=== PATIENT | female | born 1940 | race African-American/Black ===

== ENCOUNTER 2019-05-30 08:09 | Outpatient (CLI) | payer MEDICARE, OTHER, SELFPAY ==
[2019-05-30 08:42] LABS: Creatinine Urine 64.7 mg/dL; Hemoglobin A1C 6.5 % (<5.7)
[2019-05-30 08:48] LABS: Albumin Level 4.2 g/dL (3.5-5.1); Blood Urea Nitrogen 40 mg/dL (7-17); Calcium 9.9 mg/dL (8.4-10.2); Carbon Dioxide 29 mmol/L (22-30); Chloride 104 mmol/L (98-107); Estimated Glomerular Filt Rate 35; Glucose 186 mg/dL (65-105); Phosphorus 3.8 mg/dL (2.5-4.5); Potassium 4.1 mmol/L (3.4-5.0); Sodium 138 mmol/L (137-145)
[2019-05-30 09:02] LABS: Total Protein Urine Random 436 mg/dL
[2019-05-30 09:47] LABS: Vitamin D 25 Hydroxy 19.3 ng/mL
== END 2019-05-30 08:10 | disposition home or self-care (01) ==
PROVIDERS: PCP Internal Medicine; Visit Provider Internal Medicine Nephrology
DX: I12.9 Hypertensive chronic kidney disease with stage 1 through stage 4 chronic kidney disease, or unspecified chronic kidney disease (principal); N18.4 Chronic kidney disease, stage 4 (severe); E11.29 Type 2 diabetes mellitus with other diabetic kidney complication; R80.8 Other proteinuria
CPT/HCPCS: 36415; 80069; 82306; 82570; 83036; 84156

== ENCOUNTER 2019-07-05 03:10 | Observation (INO) | payer MEDICARE, OTHER, SELFPAY ==
[2019-07-05] VITALS (24 sets, daily range): BP systolic 149–256; BP diastolic 56–134; PULSE 61–89; RESP 10–21; TEMP 36.3–36.9; O2SAT 95–100; BMI 33.7
--- NOTE | 2019-07-05 | ECHO_ITS ---
Patient Info Name: Lilian Mandel Age: 79 years : 1940 Gender: Female Ht: 66 in Wt: 208 lbs BSA: 2.13 m2 HR: 75 bpm BP: 120 / 83 mmHg Technical Quality: Good Exam Date: 07/05/2019 10:12 AM Exam Location: [facility] Pulmonary Patient Status: Outpatient Admit Date: 07/05/2019 Staff Ordering Physician: Gulshan Hernandez MD Law Firm Consultant: Milvia Sharp RDCS Attending Provider: Rhiannon Valenzuela DO Referring Physician: David PARIKH; Exam Type: CA echo doppler color flow Study Info Indications - cva Complete two-dimensional, color flow and Doppler transthoracic echocardiogram is performed. Summary 1. Left ventricular chamber size and systolic function are normal with no regional wall motion abnormalities with an estimated ejection fraction of >70%. Moderate LVH and grade 1 diastolic dysfunction are present. 2. There is trace mitral and tricuspid valve regurgitation. 3. No pulmonary hypertension, estimated pulmonary arterial systolic pressure is 28 mmHg. 4. Normal sinus rhythm. Left Ventricle Left ventricular chamber dimension is normal. Left ventricular systolic function is normal, estimated at >70%. There is moderately increased left ventricular wall thickness. Left ventricular septal wall motion is normal. The left ventricular diastolic function is grade I diastolic dysfunction. Left ventricular chamber size and systolic function are normal with no regional wall motion abnormalities with an estimated ejection fraction of >70%. Moderate LVH and grade 1 diastolic dysfunction are present. Right Ventricle Right ventricular chamber dimension is normal. Right ventricular systolic function is normal. Left Atria Left atrial chamber dimension is normal. Right Atria Right atrial chamber dimension is normal. Aortic Valve The aortic valve is trileaflet. There is no aortic valve sclerosis. There is no aortic valve stenosis. There is no aortic valve regurgitation. Pulmonic Valve The pulmonic valve is normal. There is no pulmonic valve stenosis. There is no pulmonic regurgitation. Mitral Valve The mitral valve has thickened leaflets. There is no mitral valve stenosis. There is trace mitral and tricuspid valve regurgitation. Tricuspid Valve The tricuspid valve leaflets are normal. There is no significant tricuspid valve stenosis. There is trace tricuspid valve regurgitation. No pulmonary hypertension, estimated pulmonary arterial systolic pressure is 28 mmHg. Pericardium/Pleural The pericardium appears normal. There is no pericardial effusion. Inferior Vena Cava Normal inferior vena cava with >50% collapse upon inspiration consistent with Empty right atrial pressure, 10 mmHg. Aorta The aortic root size at the sinus of Valsalva is normal. The prox ascending aorta size is normal. Left Ventricular Outflow Tract Name Value Normal LVOT 2D LVOT Diameter 2.0 cm LVOT Doppler LVOT Peak Gradient 5 mmHg LVOT Mean Gradient 3 mmHg LVOT VTI 23 cm LVOT VTI/AV VTI Ratio
--- NOTE | ~2019-07-05 | CT_ITS ---
EXAMINATION: CT brain wo con INDICATION: Headache COMPARISON: None TECHNIQUE: Standard unenhanced head CT. The dose-length product (DLP) was 605.33 mGy-cm. The mA was a djusted according to patient size. Iterative reconstruction technique was employed. FINDINGS: There is no acute intraparenchymal hemorrhage. No evidence of mass lesion. No evidence of a cute infarction. There is mild periventricular and subcortical hypodensity probably related to small vessel ischemic disease. There is mild prominence of the sulci and ventricles related to cerebral atr ophy. Intracranial calcified cerebral atherosclerosis is noted. There are no extra-axial collections. There is no mass effect or midline shift. The orbits and soft tissues are unremarkable. The visuali zed sinuses and mastoid air cells are well aerated. IMPRESSION: 1. No acute intracranial abnormality. 2. Age related findings. Reviewed, dictated and finalized at location A.
[2019-07-05 03:19] LABS: Glucose Point of Care 61 (65-105)
--- NOTE | 2019-07-05 03:19 | ECG_ITS ---
Measurements Intervals [place] Rate: 70 P: 56 [place]: 156 QRS: -31 QRSD: 106 T: 127 QT: 418 QTc: 453 Interpretive Statements SINUS RHYTHM LEFT AXIS DEVIATION LEFT VENTRICULAR HYPERTROPHY AND ST-T CHANGE BORDERLINE ST-T WAVE ABNORMALITY- ANTEROLAT/LAT LEADS BASELINE ARTIFACT- I, II, AVR BORDERLINE ECG Electronically Signed On 07-05-2019 7:18:46 CDT by Ashutosh Jones D.O.
--- NOTE | 2019-07-05 03:23 | ED.GENADULT ---
HPI - General Adult General Chief complaint: Weakness Stated complaint: weakness Time Seen by Provider: 07/05/19 03:20 History of Present Illness HPI narrative: 79 yo female w/ h/o CVA, HTN, DM, hypothyroidism BIBEMS for multiple complaints. She says that she just hasn't been feeling well for the past 3 days. She reports that she has been weak and and had a CAROLINA for the past three days. She also reports occasional dizziness. Tonight her son noted garbled speech around 0230. She has never had this before. Blood sugar per EMS was in the 50s. Related Data Home Medications Medication Instructions Recorded Confirmed aspirin 325 mg tablet 325 mg PO DAILY 01/30/19 07/05/19 bimatoprost 0.01 % eye drops 1 drop EACH EYE QPM 01/30/19 07/05/19 carvedilol 25 mg tablet 25 mg PO Q12H 01/30/19 07/05/19 metformin 1,000 mg tablet 1,000 mg PO BID 01/30/19 07/05/19 omeprazole 40 mg capsule,delayed 40 mg PO DAILY 01/30/19 07/05/19 release cholecalciferol (vitamin D3) 50 mcg PO DAILY 07/05/19 07/05/19 [Vitamin D3] glipizide 10 mg PO BIDAC 07/05/19 07/05/19 Allergies Allergy/AdvReac Type Severity Reaction Status Date / Time benazepril Allergy Unknown Unknown Verified 07/05/19 03:30 lisinopril Allergy Unknown Unknown Verified 07/05/19 03:30 Review of Systems Review of Systems: All systems reviewed & are unremarkable except as noted in HPI and below Constitutional: Constitutional: Denies fever(s) Eyes: Eyes: Denies change in vision ENT: Reports dizziness Cardiovascular: Cardiovascular: Denies chest pain Respiratory: Respiratory: Denies cough and Denies dyspnea Gastrointestinal: Gastrointestinal: Denies abdominal pain and Reports nausea Genitourinary: Genitourinary: Denies hematuria and Denies dysuria Integumentary/Breasts: Skin/Breast: Denies rash Neurologic: Reports dizziness, Reports headache(s), Denies focal weakness and Reports weakness Endocrine: Endocrine: Denies polydipsia and Denies polyuria PENDING SALE TO [facility] Past Medical History Medical History (Updated 07/05/19 @ 21:23 by Luan Go MD) Anemia Essential (primary) hypertension 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 Hypothyroidism, unspecified Type II diabetes mellitus with renal manifestations Surgical History Surgical History (Updated 07/05/19 @ 16:13 by Gulshan Hernandez MD) History of bunionectomy of left great toe Presence of left artificial knee joint Presence of right artificial hip joint Presence of right artificial knee joint Family History Family History (Updated 07/05/19 @ 16:14 by Gulshan Hernandez MD) Mother Family history of diabetes mellitus in first degree relative Patient's mother is Acute myocardial infarction Diabetes mellitus Sibling Family history of sarcoidosis Family history of lupus erythematosus Father , age 49 [place] Acute myocardial infarction Other Cerebrovascular accident Family history of arthritis Hypertension Social History Social History (Updated 07/05/19 @ 16:17 by Gulshan Hernandez MD) Smoking packs per day: 2 Smoking cigarettes per day: 40.0 Years smoked: 20.0 Smoking pack-years: 40.00 Smoking status: Former smoker Second hand tobacco smoke exposure: No Smoking end date: 06/13/79 Alcohol intake: never Substance use: never Gender identity (if verbalized by the patient): Male Spiritual care concerns: No Agree to blood products: Yes Exam Const: General: no acute distress, alert and ill appearing chronically Orientation/consciousness: patient oriented x3 HENMT: Head: normal to inspection Eyes: Other: periorbital edema and tearing Resp: Effort & Inspection: normal respiratory effort Auscultation: clear to auscultation bilaterally Cardio: Rate: regular rate Rhythm: regular rhythm GI: GI Palp: Yes Soft to palpation and No Tenderness to palpation present (GI) Skin: General sk
[2019-07-05] MEDS: hydrALAZINE HCL 20 MG/ML VIAL IV PUSH (03:45)
[2019-07-05 04:03] LABS: Basophils Percent Auto 0.6 % (0.2-1.2); Eosinophils Absolute Auto 0.5 K/mm3 (0-0.3); Eosinophils Percent Auto 6.7 % (0-4.4); Hematocrit 32.6 % (37.0-47.0); Hemoglobin 10.2 g/dL (12.0-15.0); Immature Granulocyte Absolute 0.02 K/mm3 (0.00-0.031); Immature Granulocyte Percent A 0.3 % (0-0.5); Lymphocytes Absolute Auto 1.96 K/mm3 (0.9-3.2); Mean Corpuscular HGB Conc 31.3 g/dl (32-36); Mean Corpuscular Hemoglobin 29.4 pg (26-34); Mean Corpuscular Volume 93.9 fl (80-100); Mean Platelet Volume 9.5 fl (7.4-10.4); Monocytes Absolute Auto 0.5 K/mm3 (0.1-0.6); Neutrophils Percent Auto 57.4 % (45.5-73.1); Platelet Count Result 353 k/mm3 (150-375); Red Blood Count 3.47 M/mm3 (4.2-5.4); Red Cell Distribution Width 12.9 % (11.5-14.5)
[2019-07-05 04:12] LABS: INR 0.8; Prothrombin Time 10.7 Seconds (11.1-14.7)
[2019-07-05 04:13] LABS: Partial Thromboplastin Time 25.3 SECONDS (22.3-36.8)
[2019-07-05 04:37] LABS: Add Urine Microscopic? YES; Appearance Urine Clear (Clear); Bilirubin Urine Negative (Negative); Blood Urine Negative (Negative); Color Urine Colorless (Yellow); Glucose Urine UA Negative (Negative); Ketones Urine Negative (Negative); Leukocyte Esterase Ur Negative LEU/UL (Negative); Mucus Urine Rare /lpf; Nitrate Urine Negative (Negative); Protein Urine 2+ mg/dL (Negative); RBC Urine 0-2 /hpf (0-2); Specific Grav Ur 1.006 (1.001-1.035); Squamous Epithelial Cell Urine Rare /hpf (Few); Urobilinogen Urine Negative mg/dL (<2.0); WBC Urine 0-3 /hpf
[2019-07-05] MEDS: LABETALOL HCL INJ 100 MG/20 ML VIAL 10 MG IV PUSH (04:50)
[2019-07-05 05:00] LABS: Alanine Aminotransferase 10 U/L (4-35); Albumin Level 4.3 g/dL (3.5-5.1); Alkaline Phosphatase 80 U/L (38-126); Aspartate Amino Transferase 22 U/L (14-36); Bilirubin,Total 0.3 mg/dL (0.2-1.3); Blood Urea Nitrogen 40 mg/dL (7-17); Calcium 10.3 mg/dL (8.4-10.2); Carbon Dioxide 28 mmol/L (22-30); Chloride 100 mmol/L (98-107); Estimated Glomerular Filt Rate 28; Glucose 76 mg/dL (65-105); Potassium 4.4 mmol/L (3.4-5.0); Sodium 137 mmol/L (137-145)
[2019-07-05 05:07] LABS: Glucose Point of Care 119 (65-105)
--- NOTE | 2019-07-05 05:14 | PC.NURSE ---
Scott Prescott called to [phone] youngest daughter called for update.
--- NOTE | 2019-07-05 07:29 | PC.NURSE ---
This patient, Lilian Mandel, was admitted to IMU Room 202-01 @[id number]. Patient/family oriented to hospital policies and general routines including ID bracelet, bed and alarms, visiting hours, pain management, procedures, bathroom and other care routines, personal items, smoking policy, room service/diet, and visiting hours. Valuables list has been completed. Patient encouraged to report perceived risks to care and to ask questions if they do not understand what they are told or what they should do.
[2019-07-05 08:12] LABS: Glucose Point of Care 76 (65-105)
[2019-07-05] MEDS: PANTOPRAZOLE 40 MG TABLET PO ×2 (09:37→21:45)
[2019-07-05] MEDS: FLUTICASONE PROPIONATE 0.05% NA SPR 16 GM BTL (*BKC) 2 SPRAY NASAL (09:37)
[2019-07-05] MEDS: AMLODIPINE BESYLATE 5 MG TABLET PO (09:37)
[2019-07-05] MEDS: LEVOTHYROXINE SODIUM 50 MCG TABLET PO (09:37)
[2019-07-05] MEDS: carvediloL 25 MG TABLET PO ×2 (09:37→21:44)
[2019-07-05] MEDS: ASPIRIN 325 MG TABLET PO (09:37)
[2019-07-05] MEDS: FUROSEMIDE 40 MG TABLET PO (09:37)
[2019-07-05] MEDS: CHOLECALCIFEROL 1,000 UNIT TABLET 2000 UNITS PO (09:37)
[2019-07-05] MEDS: LOSARTAN POTASSIUM 100 MG TABLET PO (09:37)
[2019-07-05 11:14] LABS: Glucose Point of Care 210 (65-105)
--- NOTE | 2019-07-05 15:58 | PM.IMHP ---
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 Her grandson was staying with her and he helped her to the bathroom and she stated that both legs were weak with no focal weakness. She had headache also and he helped her back to bed got her dressed and contacted 911 who brought her to the emergency room. In ER her systolic pressure was 240 and she is given IV hydralazine admitted for evaluation. She denied any chest pain shortness of breath or palpitations. She states she has been taking her medication faithfully. Noncontrast CT scan of the brain revealed no acute changes Review of Systems Review of Systems: Narrative: Constitutional appetite good weight steady no fever no chills Eye no double vision scotoma Mouth no pharyngitis laryngitis Pulmonary no shortness breath wheezing or cough CV is stated no palpitation or chest discomfort or pedal edema GI no melena or hematochezia. 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 Hypothyroidism, unspecified Type II diabetes mellitus with renal manifestations Surgical History Surgical History (Updated 07/05/19 @ 16:13 by Gulshan Hernandez MD) History of bunionectomy of left great toe Presence of left artificial knee joint Presence of right artificial hip joint Presence of right artificial knee joint Family History Family History (Updated 07/05/19 @ 16:14 by Gulshan Hernandez MD) Mother Family history of diabetes mellitus in first degree relative Patient's mother is Acute myocardial infarction Diabetes mellitus Sibling Family history of sarcoidosis Family history of lupus erythematosus Father , age 49 [place] Acute myocardial infarction Other Cerebrovascular accident Family history of arthritis Hypertension Social History Social History (Updated 07/05/19 @ 16:17 by Gulshan Hernandez MD) Smoking packs per day: 2 Smoking cigarettes per day: 40.0 Years smoked: 20.0 Smoking pack-years: 40.00 Smoking status: Former smoker Second hand tobacco smoke exposure: No Smoking end date: 06/13/79 Alcohol intake: never Substance use: never Gender identity (if verbalized by the patient): Male Spiritual care concerns: No Agree to blood products: Yes Meds Home Medications and Allergies Home Medications Medication Instructions Recorded Confirmed Type aspirin 325 mg tablet 325 mg PO DAILY 01/30/19 07/05/19 History bimatoprost 0.01 % eye drops 1 drop EACH EYE QPM 01/30/19 07/05/19 History carvedilol 25 mg tablet 25 mg PO Q12H 01/30/19 07/05/19 History metformin 1,000 mg tablet 1,000 mg PO BID 01/30/19 07/05/19 History omeprazole 40 mg capsule,delayed 40 mg PO DAILY 01/30/19 07/05/19 History release fluticasone propionate 50 2 spray NASAL DAILY #9.9 ml 02/02/19 07/05/19 Rx mcg/actuation nasal spray,suspension levothyroxine 50 mcg tablet 50 mcg PO DAILY #90 tablet 02/27/19 07/05/19 Rx furosemide 40 mg tablet 40 mg PO QAM #90 tablet 05/24/19 07/05/19 Rx losartan 100 mg tablet 100 mg PO DAILY #90 tablet 05/24/19
[2019-07-05 16:48] LABS: Glucose Point of Care 236 (65-105)
[2019-07-05] MEDS: LATANOPROST 0.005% OP SOLN 2.5 ML BTL 1 DROP EACH EYE (17:02)
[2019-07-05] MEDS: INSULIN ASPART (*BKC) 100 UNITS/ML SUB-Q (17:03)
[2019-07-05] MEDS: hydrALAZINE HCL 20 MG/ML VIAL 10 MG IV PUSH (17:03)
[2019-07-05] MEDS: ACETAMINOPHEN 325 MG TABLET 650 MG PO (20:03)
[2019-07-05 21:18] LABS: Glucose Point of Care 115 (65-105)
[2019-07-05] MEDS: ENOXAPARIN 30 MG/0.3 ML SYRINGE SUB-Q (21:45)
[2019-07-06] VITALS (9 sets, daily range): BP systolic 137–177; BP diastolic 53–63; PULSE 52–99; RESP 16–18; TEMP 36.3–36.6; O2SAT 97–99
[2019-07-06 04:42] LABS: Hemoglobin A1C 5.9 % (<5.7)
[2019-07-06 04:45] LABS: Blood Urea Nitrogen 44 mg/dL (7-17); Calcium 9.3 mg/dL (8.4-10.2); Carbon Dioxide 29 mmol/L (22-30); Chloride 103 mmol/L (98-107); Estimated CRCL calculation 20 ml/min; Estimated Glomerular Filt Rate 23; Glucose 112 mg/dL (65-105); Potassium 4.1 mmol/L (3.4-5.0); Sodium 137 mmol/L (137-145)
[2019-07-06] MEDS: LEVOTHYROXINE SODIUM 50 MCG TABLET PO (06:27)
[2019-07-06 07:53] LABS: Glucose Point of Care 102 (65-105)
[2019-07-06] MEDS: PANTOPRAZOLE 40 MG TABLET PO (09:26)
[2019-07-06] MEDS: carvediloL 25 MG TABLET PO (09:26)
[2019-07-06] MEDS: ASPIRIN 325 MG TABLET PO (09:26)
[2019-07-06] MEDS: AMLODIPINE BESYLATE 5 MG TABLET PO (09:26)
[2019-07-06] MEDS: FUROSEMIDE 40 MG TABLET PO (09:26)
[2019-07-06] MEDS: LOSARTAN POTASSIUM 100 MG TABLET PO (09:26)
[2019-07-06] MEDS: CHOLECALCIFEROL 1,000 UNIT TABLET 2000 UNITS PO (09:26)
[2019-07-06] MEDS: FLUTICASONE PROPIONATE 0.05% NA SPR 16 GM BTL (*BKC) 2 SPRAY NASAL (09:27)
[2019-07-06] MEDS: ACETAMINOPHEN 325 MG TABLET 650 MG PO (09:32)
[2019-07-06 12:52] LABS: Glucose Point of Care 171 (65-105)
--- NOTE | 2019-07-06 18:34 | PM.DS ---
DS: Diagnosis Admitting Diagnosis Admitting Diagnosis: Essential (primary) hypertension Discharge Diagnosis (1) Essential (primary) hypertension: Code(s): I10 - Essential (primary) hypertension Status: Acute Assessment and Plan: Accelerated essential hypertension. resumed her beta-иван and ARB with diuretic. Added amlodipine calcium channel иван to her regime. Looking back on records in 2014 she had been on amlodipine and past with no apparent adverse effects echocardiogram normal EF 60-65% with LVH. Her blood pressure came down remained relatively steady with resume the for blood pressure medicines and addition of the amlodipine. She seem reliable and stated she been taking her medicine faithfully. She will follow-up with primary and Dr. 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 And day of discharge with at 2.5. Did not want to lower her pressure too much with her renal failure. (3) Type II diabetes mellitus with renal manifestations: Code(s): E11.29 - Type 2 diabetes mellitus with other diabetic kidney complication Status: Acute Assessment and Plan: Blood sugar was slightly low on admission and she states that she was a little diaphoretic. A1c was only 5.9 so we held her metformin with the renal status and decrease her glipizide to 1 daily. She will follow-up with her primary care (4) Anemia: Code(s): D64.9 - Anemia, unspecified Status: Acute Assessment and Plan: Hemoglobin is the same as it has been over over a year thought secondary to anemia chronic disease with renal failure (5) Hypothyroidism, unspecified: Code(s): E03.9 - Hypothyroidism, unspecified Status: Acute Assessment and Plan: TSH normal continue thyroid replacement DS: Summary Hospital Course Hospital Course: 79-year-old black female admitted with accelerated hypertension, headache, weakness in both legs. Her pressure was elevated she is found to be hypoglycemic also. Oral hypoglycemics were decreased and amlodipine 5 was added to her blood pressure regime. Echocardiogram was normal EF with left ventricular hypertrophy. She will have a BMP drawn within the next 2 weeks and follow-up with primary and Dr. Fulton in the next 2 weeks as previously scheduled Time Spent with Patient Time attestation: Total time spent providing and/or coordinating discharge services: 35 minutes Exam Narrative: Exam Narrative: Condition on discharge Blood pressure 150/54 pulse is 56 saturating 98% on room air afebrile Lungs clear CV regular rate rhythm Abdomen is soft nontender Extremities without edema distal pulses are 2+ Neuro alert pleasant cooperative ambulating well with physical therapy and no focal deficits DS: Data Data Completed and Pending Labs on day of discharge: Labs from last 24 hours 07/06/19 07/06/19 07/06/19 11:53 07:49 04:13 Sodium 137 Potassium 4.1 Chloride 103 Carbon Dioxide 29 BUN 44 H Creatinine 2.50 H Estim Creat Clear Calc 20 Estimated GFR 23 L Glucose 112 H POC Capillary Glucose 171 H 102 Hemoglobin A1c Calcium 9.3 07/06/19 07/05/19 04:13 21:14 Sodium Potassium Chloride Carbon Dioxide BUN Creatinine Estim Creat Clear Calc Estimated GFR Glucose POC Capillary Glucose 115 H Hemoglobin A1c 5.9 H Calcium Discharge Plan Discharge Attending physician on discharge: Gulshan Hernandez Discharging Clinician: Gulshan Hernandez Patient Disposition: Home,
== END 2019-07-06 14:14 | disposition home or self-care (01) ==
LOC: ANHED 04:03 → ANHIMU 07:41
PROVIDERS: Admitting Provider Internal Medicine; Emergency Provider Emergency Medicine; PCP Internal Medicine; Visit Provider Internal Medicine
DX: I13.0 Hypertensive heart and chronic kidney disease with heart failure and stage 1 through stage 4 chronic kidney disease, or unspecified chronic kidney disease (principal); N18.3 Chronic kidney disease, stage 3 (moderate); I50.812 Chronic right heart failure; E11.22 Type 2 diabetes mellitus with diabetic chronic kidney disease; D63.1 Anemia in chronic kidney disease; E11.649 Type 2 diabetes mellitus with hypoglycemia without coma; E03.9 Hypothyroidism, unspecified; R47.1 Dysarthria and anarthria; Z79.82 Long term (current) use of aspirin; Z79.84 Long term (current) use of oral hypoglycemic drugs; Z79.899 Other long term (current) drug therapy; Z86.73 Personal history of transient ischemic attack (TIA), and cerebral infarction without residual deficits; Z87.891 Personal history of nicotine dependence; Z96.641 Presence of right artificial hip joint; Z96.653 Presence of artificial knee joint, bilateral
CPT/HCPCS: 36415; 70450; 80048; 80053; 81001; 83036; 84443; 85025; 85610; 85730; 93005; 93306; 96365; 96372; 96375; 97161; 97165; 99285; A9270; G0378; J0131; J0360; J1650; J1815

== ENCOUNTER 2019-07-11 07:42 | Outpatient (CLI) | payer MEDICARE, OTHER, SELFPAY ==
[2019-07-11 08:11] LABS: Albumin Level 3.9 g/dL (3.5-5.1); Blood Urea Nitrogen 35 mg/dL (7-17); Carbon Dioxide 29 mmol/L (22-30); Chloride 107 mmol/L (98-107); Estimated Glomerular Filt Rate 29; Glucose 113 mg/dL (65-105); Phosphorus 3.9 mg/dL (2.5-4.5); Potassium 4.5 mmol/L (3.4-5.0); Sodium 141 mmol/L (137-145)
== END 2019-07-11 07:43 | disposition home or self-care (01) ==
PROVIDERS: PCP Internal Medicine; Visit Provider Internal Medicine
DX: E11.29 Type 2 diabetes mellitus with other diabetic kidney complication (principal)
CPT/HCPCS: 36415; 80069

== ENCOUNTER 2019-08-02 13:42 | Outpatient (CLI) | payer MEDICARE, OTHER, SELFPAY ==
[2019-08-02 15:08] LABS: Alanine Aminotransferase 10 U/L (4-35); Albumin Level 3.9 g/dL (3.5-5.1); Alkaline Phosphatase 82 U/L (38-126); Aspartate Amino Transferase 20 U/L (14-36); Bilirubin,Total 0.2 mg/dL (0.2-1.3); Blood Urea Nitrogen 35 mg/dL (7-17); Calcium 9.6 mg/dL (8.4-10.2); Carbon Dioxide 30 mmol/L (22-30); Chloride 103 mmol/L (98-107); Cholesterol 248 mg/dL (0-200); Estimated Glomerular Filt Rate 25; Glucose 143 mg/dL (65-105); HDL Direct 50 mg/dL; Potassium 3.9 mmol/L (3.4-5.0); Sodium 137 mmol/L (137-145); Triglycerides 127 mg/dL (<150)
[2019-08-02 15:19] LABS: LDL Cholesterol Direct 117 mg/dL
[2019-08-02 18:46] LABS: Hemoglobin A1C 5.9 % (<5.7)
== END 2019-08-02 13:43 | disposition home or self-care (01) ==
PROVIDERS: PCP Internal Medicine; Visit Provider Internal Medicine
DX: E11.29 Type 2 diabetes mellitus with other diabetic kidney complication (principal); I10 Essential (primary) hypertension; Z79.899 Other long term (current) drug therapy; E03.9 Hypothyroidism, unspecified; E78.5 Hyperlipidemia, unspecified
CPT/HCPCS: 36415; 80053; 80061; 83036; 84443

== ENCOUNTER 2019-08-08 08:33 | Outpatient (CLI) | payer MEDICARE, OTHER, SELFPAY ==
--- NOTE | ~2019-08-08 | MM_ITS ---
EXAMINATION: MM screening abigail BI w milka HISTORY: Screening mammogram TECHNIQUE: Craniocaudal and mediolateral oblique 3-D tomosynthesis images were obtained and synthetic 2-D images were generated. CAD analysis was submitted and interpreted. COMPARISON: Comparison to multiple prior studies sequentially, with oldest reviewed study dated 05/28. BREAST PARENCHYMAL COMPOSITION: There are scattered areas of fibroglandular density. FINDINGS: There is no evidence of suspicious mass, calcification, or architectural distortion to sugg est malignancy in either breast. There has been no suspicious interval change. IMPRESSION: 1. No mammographic evidence of malignancy. 2. Recommend routine screening mammography in one year. BI-RADS Category 1: Negative Reviewed, dictated and finalized at location A.
== END 2019-08-08 08:34 | disposition home or self-care (01) ==
LOC: ANHIMG 09:04
PROVIDERS: PCP Internal Medicine; Visit Provider Internal Medicine
DX: Z12.31 Encounter for screening mammogram for malignant neoplasm of breast (principal)
CPT/HCPCS: 77063; 77067

== ENCOUNTER 2019-10-31 10:52 | Emergency (ER) | payer MEDICARE, OTHER, SELFPAY ==
[2019-10-31 11:35] VITALS: BP 182/76; PULSE 81; RESP 20; TEMP 36.8; O2SAT 99
--- NOTE | 2019-10-31 12:14 | ED.GENADULT ---
HPI - General Adult General Chief complaint: Unspecified <CAMILLE Howard Last Filed: 10/31/19 12:39> Stated complaint: I HAVE PARASITES ALL OVER MY SKIN <CAMILLE Howard Last Filed: 10/31/19 12:39> Time Seen by Provider: 10/31/19 11:57 <CAMILLE Howard Last Filed: 10/31/19 12:39> Source: patient <CAMILLE Howard Last Filed: 10/31/19 12:39> Mode of arrival: ambulatory <CAMILLE Howard Last Filed: 10/31/19 12:39> Limitations: no limitations <CAMILLE Howard Last Filed: 10/31/19 12:39> History of Present Illness HPI narrative: This is a 79 year old female that presents to the ER for itchy rash on her body. Reports she thinks that she has parasites. She has seen her primary for this and has a referral to a microsoft dynamics developer. Denies fever, chest pain, abdominal pain, or dysuria. <CAMILLE Howard Last Filed: 10/31/19 12:39> Related Data Home medications: Home Medications Medication Instructions Recorded Confirmed aspirin 325 mg tablet 325 mg PO DAILY 01/30/19 10/08/19 bimatoprost 0.01 % eye drops 1 drop EACH EYE QPM 01/30/19 10/08/19 carvedilol 25 mg tablet 25 mg PO Q12H 01/30/19 10/08/19 cholecalciferol (vitamin D3) 50 mcg PO DAILY 07/05/19 10/08/19 [Vitamin D3] <CAMILLE Howard Last Filed: 10/31/19 12:39> Allergies/adverse reactions: Allergies Allergy/AdvReac Type Severity Reaction Status Date / Time benazepril Allergy Unknown Unknown Verified 10/08/19 09:20 lisinopril Allergy Unknown Unknown Verified 10/08/19 09:20 <CAMILLE Howard Last Filed: 10/31/19 12:39> Review of Systems Review of Systems: Narrative: CONSTITUTIONAL: Denies fever CARDIOVASCULAR: Denies chest pain GASTROINTESTINAL: Denies abdominal pain, vomiting GENITOURINARY: Denies dysuria SKIN: Reports rash and itching. <Brianda Mart PA-C - Last Filed: 10/31/19 12:39> All systems reviewed & are unremarkable except as noted in HPI and below <Brianda Mart PA-C - Last Filed: 10/31/19 12:39> PMFSH Social History Social History: Social History Smoking packs per day: 2 Smoking cigarettes per day: 40.0 Years smoked: 20.0 Smoking pack-years: 40.00 Smoking status: Former smoker Second hand tobacco smoke exposure: No Smoking end date: 06/13/79 Alcohol intake: never Substance use: never Gender identity (if verbalized by the patient): Male Spiritual care concerns: No Agree to blood products: Yes <Brianda Mart PA-C - Last Filed: 10/31/19 12:39> Exam Narrative: Exam Narrative: GENERAL: Well-appearing, well-nourished, and in no acute distress. HEAD: Normocephalic, atraumatic. EYES: PERRLA and EOMI. ENT: Nares clear, no rhinorrhea or epistaxis. Mucous membranes moist. Oropharynx without tonsillar hypertrophy exudate or other lesions. Bilateral TMs pearly abdul non-bulging NECK: Supple. No adenopathy or masses. CHEST: Clear to auscultation. No respiratory distress. No wheezes rales or rhonchi HEART: Regular rate and rhythm. No murmur heard. Normal peripheral pulses. ABDOMEN: Soft, nontender, nondistended, normal active bowel sounds. EXTREMITIES: Normal range of motion. No edema. SKIN: Warm, dry, no rash. NEURO: No focal deficits. Alert and oriented x3. PSYCH: Normal mood and affect <CAMILLE Howard Last Filed: 10/31/19 12:39> Course Vital Signs Vital signs: Vital Signs Temperature 98.2 F 10/31/19 11:35 Pulse Rate 81 10/31/19 11:35 Respiratory Rate 20 10/31/19 11:35 Blood Pressure 182/76 H 10/31/19 11:35 Pulse Oximetry 99 08/19/20 11:35 Temperature 98.2 F 10/31/19 11:35 Pulse Rate 80 10/31/19 12:40 Respiratory Rate 12 10/31/19 12:40 Blood Pressure 186/74 H 10/31/19 12:40 Pulse Oximetry 99 10/31/19 12:40 <Brianda Mart PA-C - Last Filed: 10/31/19 12:39> Vital Signs Te
[2019-10-31 12:40] VITALS: BP 186/74; PULSE 80; RESP 12; O2SAT 99
== END 2019-10-31 12:50 | disposition home or self-care (01) ==
PROVIDERS: Emergency Provider Emergency Medicine; PCP Internal Medicine
DX: R21 Rash and other nonspecific skin eruption (principal); Z87.891 Personal history of nicotine dependence
CPT/HCPCS: 99281; J7030

== ENCOUNTER 2019-11-08 13:53 | Outpatient (CLI) | payer MEDICARE, OTHER, SELFPAY ==
[2019-11-08 14:23] LABS: Cholesterol 181 mg/dL (0-200); HDL Direct 71 mg/dL; Triglycerides 96 mg/dL (<150)
[2019-11-08 14:33] LABS: LDL Cholesterol Direct 73 mg/dL
== END 2019-11-08 13:54 | disposition home or self-care (01) ==
LOC: ANHLAB 13:57
PROVIDERS: PCP Internal Medicine; Visit Provider Internal Medicine
DX: E78.2 Mixed hyperlipidemia (principal)
CPT/HCPCS: 36415; 80061

== ENCOUNTER 2019-11-28 09:07 | Outpatient (CLI) | payer MEDICARE, OTHER, SELFPAY ==
[2019-11-28 10:11] LABS: Creatinine Urine 83.5 mg/dL
[2019-11-28 10:15] LABS: Albumin Level 4.1 g/dL (3.5-5.1); Anion Gap 8 mmol/L (8-16); Blood Urea Nitrogen 44 mg/dL (7-17); Calcium 9.2 mg/dL (8.4-10.2); Carbon Dioxide 27 mmol/L (22-30); Chloride 102 mmol/L (98-107); Estimated Glomerular Filt Rate 18; Glucose 163 mg/dL (65-105); Phosphorus 4.4 mg/dL (2.5-4.5); Potassium 4.5 mmol/L (3.4-5.0); Sodium 137 mmol/L (137-145)
[2019-11-28 10:23] LABS: Total Protein Urine Random 349 mg/dL
[2019-11-28 10:26] LABS: Parathyroid Intact 437.4 pg/mL (7.5-53.5)
[2019-11-28 11:02] LABS: Vitamin D 25 Hydroxy 34.3 ng/mL
== END 2019-11-28 09:08 | disposition home or self-care (01) ==
LOC: ANHLAB 09:11
PROVIDERS: PCP Internal Medicine; Visit Provider Internal Medicine Nephrology
DX: R80.8 Other proteinuria (principal); I12.9 Hypertensive chronic kidney disease with stage 1 through stage 4 chronic kidney disease, or unspecified chronic kidney disease; N18.3 Chronic kidney disease, stage 3 (moderate); E11.29 Type 2 diabetes mellitus with other diabetic kidney complication
CPT/HCPCS: 36415; 80069; 82306; 82570; 83970; 84156

== ENCOUNTER 2020-01-04 09:49 | Outpatient (CLI) | payer MEDICARE, OTHER, SELFPAY ==
[2020-01-04 10:32] LABS: Albumin Level 4.2 g/dL (3.5-5.1); Anion Gap 9 mmol/L (8-16); Blood Urea Nitrogen 48 mg/dL (7-17); Calcium 9.9 mg/dL (8.4-10.2); Carbon Dioxide 28 mmol/L (22-30); Chloride 107 mmol/L (98-107); Estimated Glomerular Filt Rate 21; Glucose 121 mg/dL (65-105); Phosphorus 4.8 mg/dL (2.5-4.5); Potassium 4.3 mmol/L (3.4-5.0); Sodium 144 mmol/L (137-145)
== END 2020-01-04 09:50 | disposition home or self-care (01) ==
PROVIDERS: PCP Internal Medicine; Visit Provider Internal Medicine Nephrology
DX: I12.9 Hypertensive chronic kidney disease with stage 1 through stage 4 chronic kidney disease, or unspecified chronic kidney disease (principal); N18.4 Chronic kidney disease, stage 4 (severe); E11.29 Type 2 diabetes mellitus with other diabetic kidney complication
CPT/HCPCS: 36415; 80069

== ENCOUNTER 2020-03-21 08:37 | Outpatient (CLI) | payer MEDICARE, OTHER, SELFPAY ==
--- NOTE | ~2020-03-21 | DEXA_ITS ---
Bone Density Report Name: Lilian Mandel Age: 80 Sex: Female Ethnicity: Black Date of : 1940 Indication: postmenopausal; height loss; Referring Provider: Payal Ricardo Study: Bone densitometry was performed. Exam Date: March 21, 2020 Accession number: [id number] Bone Density: Region BMD T-score Z-score Classification AP Spine (L1, L2) 1.447 4.3 6.1 Normal Femoral Neck (Left) 0.785 -0.6 0.6 Normal Total Hip (Left) 1.036 0.8 1.5 Normal World Health Organization criteria for BMD impression classify patients as: Normal (T-score at or above -1.0), Osteopenia (T-score between -1.0 and -2.5), or Osteoporosis (T-score at or below -2.5). 10-year Fracture Risk: FRAX not reported because: All T-scores for Spine Total, Hip Total, Femoral Neck at or above -1.0 Previous Exams: Region Exam Age BMD T-score BMD Change BMD Change Date g/cm2 vs Baseline vs Previous AP Spine(L1, L2) 03/21/2020 80 1.447 4.3 0.176(13.8%)# 0.176(13.8%)# 01/06/2009 68 1.272 2.7 Total Hip(Left) 03/21/2020 80 1.036 0.8 -0.145(-12.3%) -0.145(-12.3%) 01/06/2009 68 1.181 2.0 *Denotes significance at 95% confidence level, LSC for AP Spine = 0.022 g/cm2, LSC for Total Hip = 0.027 g/cm2 Clinical Information Provided by Patient: Has used the following medications: Vitamin D Patient maximum height was 68 Menopause Age: 51 No regular weight bearing exercise Drinks caffeinated beverages Onset of menses at age 13 Number of children 9 Impression: The patient has normal bone mass. No significant bone loss was observed. Discussion: BONE DENSITY IS ABOVE THE MINIMUM DESIRABLE LEVEL AT ALL SKELETAL SITES TESTED. This patient?s bone mineral density is above the minimum desirable level (T-score -1.0 or better) at all sites measured. The patient should follow a healthful lifestyle (good nutrition with adequate calcium and vitamin D, and appropriate weight-bearing exercise). Follow-Up: Consider repeating this study in 5 years or sooner if there is some new clinical indication. Reported by: [facility] on 03/21/2020 9:01:00 AM. Reviewed, dictated and finalized at location Rajat SEPULVEDA
== END 2020-03-21 08:38 | disposition home or self-care (01) ==
PROVIDERS: PCP Internal Medicine; Visit Provider Nurse Practitioner
DX: Z13.820 Encounter for screening for osteoporosis (principal); Z78.0 Asymptomatic menopausal state
CPT/HCPCS: 77080

== ENCOUNTER 2020-03-22 10:02 | Outpatient (CLI) | payer MEDICARE, OTHER, SELFPAY ==
[2020-03-22 10:41] LABS: Creatinine Urine 116.3 mg/dL
[2020-03-22 10:44] LABS: Albumin Level 3.8 g/dL (3.5-5.1); Anion Gap 6 mmol/L (8-16); Blood Urea Nitrogen 57 mg/dL (7-17); Calcium 9.2 mg/dL (8.4-10.2); Carbon Dioxide 27 mmol/L (22-30); Chloride 108 mmol/L (98-107); Estimated Glomerular Filt Rate 13; Glucose 142 mg/dL (65-105); Phosphorus 4.9 mg/dL (2.5-4.5); Potassium 4.4 mmol/L (3.4-5.0); Sodium 141 mmol/L (137-145)
[2020-03-22 12:49] LABS: Total Protein Urine Random > 600 mg/dL
== END 2020-03-22 10:03 | disposition home or self-care (01) ==
PROVIDERS: PCP Internal Medicine; Visit Provider Internal Medicine Nephrology
DX: E11.29 Type 2 diabetes mellitus with other diabetic kidney complication (principal); R80.8 Other proteinuria; I12.9 Hypertensive chronic kidney disease with stage 1 through stage 4 chronic kidney disease, or unspecified chronic kidney disease; N18.4 Chronic kidney disease, stage 4 (severe)
CPT/HCPCS: 36415; 80069; 82570; 84156

== ENCOUNTER 2020-04-05 01:02 | Outpatient (CLI) | payer MEDICARE, OTHER, SELFPAY ==
[2020-04-06 17:16] LABS: SARS-CoV-2 RNA PCR Negative
== END 2020-04-05 01:03 | disposition home or self-care (01) ==
LOC: ANHCOVIDDT 01:03
PROVIDERS: Family Provider Internal Medicine; PCP Internal Medicine; Visit Provider Orthopaedic Surgery
DX: Z01.812 Encounter for preprocedural laboratory examination (principal); Z20.822 Contact with and (suspected) exposure to COVID-19
CPT/HCPCS: C9803; U0003; U0005

== ENCOUNTER 2020-04-08 08:28 | Outpatient (CLI) | payer MEDICARE, OTHER, SELFPAY ==
[2020-04-02 15:27] VITALS: BMI 36.4
[2020-04-08 08:49] LABS: Mean Platelet Volume 9.2 fl (7.4-10.4); Platelet Count Result 363 k/mm3 (150-375)
[2020-04-08 08:57] LABS: INR 0.9; Prothrombin Time 12.4 Seconds (11.1-14.7)
== END 2020-04-08 08:29 | disposition home or self-care (01) ==
PROVIDERS: Radiology Diagnostic Radiology; Family Provider Internal Medicine; PCP Internal Medicine; Visit Provider Internal Medicine Nephrology
DX: I12.9 Hypertensive chronic kidney disease with stage 1 through stage 4 chronic kidney disease, or unspecified chronic kidney disease (principal); N18.4 Chronic kidney disease, stage 4 (severe); N17.9 Acute kidney failure, unspecified
CPT/HCPCS: 36415; 85049; 85610

== ENCOUNTER 2020-04-28 10:34 | Inpatient (IN) | payer MEDICARE, OTHER, SELFPAY ==
[2020-04-28] VITALS (45 sets, daily range): BP systolic 103–247; BP diastolic 49–168; PULSE 71–94; RESP 9–24; TEMP 36.1–36.4; O2SAT 95–100
--- NOTE | ~2020-04-28 | XR_ITS ---
EXAMINATION: XR forearm RT 2V EXAM DATE: 04/28/2020 19:37 INDICATION: Fall today, mid shaft right forearm pain. TECHNIQUE: Right forearm frontal and lateral projections obtained and reviewed. There is no prior st udy for comparison. FINDINGS: There are no acute fractures or dislocations identified. There is no subcutaneous gas. Th ere may be some swelling over the posterior aspect of the midforearm. There are no radiopaque foreig n bodies. IMPRESSION: 1. XR forearm RT 2V exam without acute osseous findings. 2. Soft tissue swelling. Reviewed, dictated and finalized at location G. AIR FURNACE INSTALLER REPAIRER
--- NOTE | ~2020-04-28 | XR_ITS ---
EXAMINATION: XR hip BI 2V w AP pelvis EXAM DATE: 04/28/2020 19:29 INDICATION: Fall today with bilateral hip pain. TECHNIQUE: Each hip imaged independently (separate right and also left hip) 'frog leg' and frontal p rojections for interpretation. Frontal projection pelvis. Comparison is made to prior examination fr 12/24/2019. FINDINGS: There is severe left hip arthritis with complete loss of the joint space subchondral cystic formation, not significantly changed compared to previous exam. There is a right hip arthroplasty wh ich is intact. Sacral arcuate lines are obscured by bowel gas. No evidence of pelvic or hip fracture. Vascular calcifications. IMPRESSION: 1. Intact right hip arthroplasty. 2. Severe left hip arthritis unchanged. Reviewed, dictated and finalized at location . FLIPPER
--- NOTE | ~2020-04-28 | MR_ITS ---
EXAMINATION: MR brain/brain stem wo con DATE: 04/29/2020 12:51 INDICATION: Dizziness TECHNIQUE: Magnetic resonance imaging (MRI) of the brain and brainstem was performed without intraven ous contrast. Planned intravenous contrast was deferred due to patient's renal insufficiency. Sequenc es included sagittal and axial T1-weighted SE, axial diffusion-weighted FS SE, axial T2*-weighted GRE , axial T2-weighted FLAIR, and axial T2-weighted FSE. Apparent diffusion coefficient (ADC) maps were created. COMPARISON: Head CT dated 04/28/2020 FINDINGS: There are no areas of restricted diffusion to suggest acute infarction. No intracranial hemorrhage or abnormal intracranial mass lesion. There are scattered areas of nonspecific increased T2-weighted si gnal intensity in the cerebral white matter, predominantly involving the deep and periventricular whi te matter. There are no intraparenchymal signal abnormalities seen on the other pulse sequences. The ventricles are symmetric and normal in size. There are no abnormal extra-axial fluid collections. Norm w voids are seen in the cerebral arteries on the T2-weighted sequences consistent with their expected patency. Persistent right otomastoiditis effusion. Changes of bilateral intraocular lens replacement . Visualized orbits and soft tissues are otherwise unremarkable. IMPRESSION: 1. Normal brain. No acute intracranial process. 2. Right total mastoid effusion. Reviewed, dictated and finalized at location A. R SCIENTIST
--- NOTE | ~2020-04-28 | US_ITS ---
EXAMINATION: US renal BI DATE: 04/29/2020 13:11 INDICATION: Worsening kidney disease TECHNIQUE: Multiple grayscale and Doppler ultrasound images of the kidneys were obtained. COMPARISON: 08/24/2018 FINDINGS: The right kidney measures 9.2 x 3.5 x 4.8 cm. The left kidney measures 9.6 x 4.4 x 4.8 cm. The kidneys demonstrate increased parenchymal echogenicity. There is no hydronephrosis. The bladder i s incompletely distended but otherwise normal in appearance.. IMPRESSION: 1. Medical renal disease. Reviewed, dictated and finalized at location A. H MIXER HELPER IMPRESSION: 1. Medical renal disease.
--- NOTE | ~2020-04-28 | US_ITS ---
EXAMINATION: US carotid duplex BI DATE: 04/29/2020 13:15 INDICATION: Cerebral atherosclerosis presenting with dizziness. TECHNIQUE: Grayscale, color Doppler, and pulsed Doppler images of the cervical carotid arteries were obtained. The degree of vessel stenosis is placed in one of the following categories: normal, <50%, 5 0-69%, >=70% but less than near-occlusion, near-occlusion, or total occlusion. Note that percent sten osis relative to normal distal artery lumen diameter is indirectly measured from velocity measurement s as described by Luan, et al. Radiology 2003; 229:340-346. COMPARISON: None. FINDINGS: RIGHT: The right common carotid artery (CCA) peak systolic velocity (PSV) is 87 cm/s. The right internal car otid artery (ICA) PSV is 174 cm/s. The right ICA end-diastolic velocity (EDV) is 35 cm/s. The right I CA/CCA PSV ratio is 2.0. Grayscale and color Doppler images yield an estimate of 50-69% diameter redu ction from plaque in the ICA. The external carotid artery (ECA) PSV is 167 cm/s. There is antegrade f low in the right vertebral artery. LEFT: The left CCA PSV is 141 cm/s. The left ICA PSV is 112 cm/s. The left ICA EDV is 31 cm/s. The left ICA /CCA PSV ratio is 0.8. Grayscale and color Doppler images yield an estimate of <50% diameter reductio n from plaque in the ICA. The ECA PSV is 103 cm/s. There is antegrade flow in the left vertebral myron ry. IMPRESSION: 1. 50-69% stenosis in the right internal carotid artery. 2. <50% stenosis in the left internal carotid artery. Reviewed, dictated and finalized at location A. ICAL NURSING INTERN
--- NOTE | ~2020-04-28 | XR_ITS ---
EXAMINATION: XR elbow RT min 3V EXAM DATE: 04/28/2020 19:30 INDICATION: Initial encounter following injury, with pain of the right elbow. TECHNIQUE: Right elbow frontal, lateral with flexion, and oblique projections obtained and reviewed. Correlation is made to right forearm examination 04/28/2020. FINDINGS: Right elbow anterior humeral line intact. There is mild to moderate primary osteoarthritis . There are no acute fractures or dislocations identified. There is no subcutaneous gas. The soft t issue is unremarkable. There are no radiopaque foreign bodies. IMPRESSION: 1. XR elbow RT min 3V exam without acute osseous findings. 2. Mild to moderate osteoarthritis. Reviewed, dictated and finalized at location G. NESS ANALYST SALES OPERATIONS
--- NOTE | ~2020-04-28 | XR_ITS ---
XR knee RT 2V DATE: 04/29/2020 13:20 INDICATION: Fall. Knee pain. TECHNIQUE: AP and crosstable lateral views of right knee COMPARISON: 02/14/2015 left knee with some right knee views FINDINGS: Status post right knee arthroplasty. No fracture, dislocation, periosteal reaction or bone destruction. Superior pole patellar enthesopathy at the quadriceps tendon insertion. Prominent femoral artery calcification. IMPRESSION: Right knee arthroplasty No fracture, dislocation or joint effusion is evident Reviewed, dictated and finalized at location B. ING MACHINE OPERATOR
--- NOTE | ~2020-04-28 | XR_ITS ---
XR knee LT 2V DATE: 04/29/2020 13:20 INDICATION: Left knee pain TECHNIQUE: AP and crosstable lateral views COMPARISON: 02/14/2015 left knee FINDINGS: Status post left knee arthroplasty. Mild suprapatellar knee joint effusion. There is prominent enthesopathy of the patella at the insertions of the quadriceps and patellar tendo ns. Osteopenia. No fracture or dislocation, periosteal reaction or bone destruction is detected. Prominent femoral artery calcification. IMPRESSION: Left knee joint replacement Mild suprapatellar knee joint effusion Reviewed, dictated and finalized at location B. LIARY ENGINEER
--- NOTE | ~2020-04-28 | CT_ITS ---
EXAMINATION: CT brain wo con DATE: 04/28/2020 11:15 INDICATION: Fall with right-sided head injury and dizziness TECHNIQUE: Computed tomography (CT) of the head was performed without intravenous contrast. Sagittal and coronal reconstructions were performed. The mA was adjusted according to patient size. Iterative reconstruction technique was employed. The dose-length product was 605.33 mGy-cm. COMPARISON: head CT dated 07/05/2019 FINDINGS: No fracture. No acute intracranial hemorrhage, acute infarction or abnormal extra axial fluid collect ion. There is minimal scattered white matter hypoattenuation consistent with chronic small vessel isc hemic disease. Symmetric prominence of the sulci consistent with mild age-appropriate diffuse cerebra l volume loss. Ventricles are normal and symmetric. No mass/mass effect. Right otomastoiditis effusio n. The orbits, paranasal sinuses and left mastoid air cells are normal. IMPRESSION: 1. Normal aging brain. No fracture or acute intracranial process. 2. Right otomastoiditis effusion. Reviewed, dictated and finalized at location A. IT COLLECTION SPECIALIST
--- NOTE | ~2020-04-28 | XR_ITS ---
EXAMINATION: XR chest 2V DATE: 04/28/2020 11:19 INDICATION: Fall. Dizziness. TECHNIQUE: frontal view of the chest was obtained. COMPARISON: Chest radiograph dated 01/26/[address] dated 08/30/2009 FINDINGS: The lungs remain clear with no focal airspace opacities, pulmonary edema, pleural effusion or pneumot horax. The cardiomediastinal silhouette is normal. Moderate to severe degenerative skeletal changes i n the spine and at both shoulders with right rotator cuff tear. IMPRESSION: 1. No acute cardiopulmonary disease. Reviewed, dictated and finalized at location A. COUNSELOR
--- NOTE | ~2020-04-28 | XR_ITS ---
EXAMINATION: XR shoulder RT min 2V EXAM DATE: 04/28/2020 19:30 INDICATION: Fall, subsequent right shoulder pain. Initial encounter. TECHNIQUE: The following right shoulder projections obtained: frontal projection with internal rotati on, frontal projection with external rotation, Grashey, and scapular Y view (4+ views). There is no prior study for comparison. FINDINGS: There is a high riding right humeral head, probably indicating chronic rotator cuff tear. T here is moderate right shoulder osteoarthritis. There are no acute fractures or dislocations identifi ed. There is no subcutaneous gas. The soft tissue is unremarkable. There are no radiopaque foreig n bodies. IMPRESSION: 1. XR shoulder RT min 2V exam without acute osseous findings. 2. Moderate osteoarthritis. Reviewed, dictated and finalized at location G. E SPLICER
[2020-04-28] MEDS: hydrALAZINE HCL 20 MG/ML VIAL 10 MG IV PUSH ×2 (10:51→13:21)
[2020-04-28] MEDS: MORPHINE SULFATE (*CRX) 4 MG/ML INJ IV PUSH (10:54)
--- NOTE | 2020-04-28 10:56 | ECG_ITS ---
Measurements Intervals [place] Rate: 85 P: 68 [place]: 148 QRS: -25 QRSD: 112 T: 95 QT: 401 QTc: 478 Interpretive Statements SINUS RHYTHM POSSIBLE LEFT ATRIAL ENLARGEMENT LEFT VENTRICULAR HYPERTROPHY WITH ST-T CHANGE BASELINE ARTIFACT- I, III, AVR, AVL, AVF, V1 BORDERLINE ECG Electronically Signed On 04-28-2020 11:19:22 RVDA MASTER CERTIFIED RV TECHNICIAN by Ashutosh Jones D.O.
--- NOTE | 2020-04-28 11:06 | PC.NURSE ---
Pt taken to CT scan
[2020-04-28 11:22] LABS: INR 0.9; Prothrombin Time 12.5 Seconds (11.1-14.7)
[2020-04-28 11:23] LABS: Anion Gap 11 mmol/L (8-16); Blood Urea Nitrogen 83 mg/dL (7-17); Calcium 9.4 mg/dL (8.4-10.2); Carbon Dioxide 21 mmol/L (22-30); Chloride 106 mmol/L (98-107); Estimated CRCL calculation 12 ml/min; Estimated Glomerular Filt Rate 13; Glucose 140 mg/dL (65-105); Potassium 3.7 mmol/L (3.4-5.0); Sodium 138 mmol/L (137-145)
[2020-04-28 11:24] LABS: Partial Thromboplastin Time 24.1 SECONDS (22.3-36.8)
[2020-04-28 11:48] LABS: Basophils Absolute Auto 0.1 K/mm3 (0.0-0.1); Basophils Percent Auto 0.5 % (0.2-1.2); Eosinophils Absolute Auto 0.1 K/mm3 (0-0.3); Eosinophils Percent Auto 1.4 % (0-4.4); Hematocrit 30.2 % (37.0-47.0); Hemoglobin 9.5 g/dL (12.0-15.0); Immature Granulocyte Absolute 0.04 K/mm3 (0.00-0.031); Immature Granulocyte Percent A 0.4 % (0-0.5); Lymphocytes Absolute Auto 0.82 K/mm3 (0.9-3.2); Lymphocytes Percent Auto 8.2 % (18.3-44.2); Mean Corpuscular HGB Conc 31.5 g/dl (32-36); Mean Corpuscular Hemoglobin 29.7 pg (26-34); Mean Corpuscular Volume 94.4 fl (80-100); Mean Platelet Volume 9.5 fl (7.4-10.4); Monocytes Absolute Auto 0.5 K/mm3 (0.1-0.6); Neutrophils Absolute Auto 8.5 K/mm3 (1.3-6.7); Neutrophils Percent Auto 84.5 % (45.5-73.1); Platelet Count Result 345 k/mm3 (150-375); Red Cell Distribution Width 12.7 % (11.5-14.5)
--- NOTE | 2020-04-28 11:56 | ED.GENADULT ---
HPI - General Adult General Chief complaint: Fall Stated complaint: Dizzy Time Seen by Provider: 04/28/20 10:34 History of Present Illness HPI narrative: Patient is a 80-year-old female who presents ER with dizziness and a fall. Patient reports she was in her kitchen frying chicken when she began to feel lightheaded like she might pass out. No rotational dizziness or nausea or vomiting. She started walking to her bathroom and she became so unstable she fell to the ground. She did not lose consciousness. She did hit her head. She takes a baby aspirin. She reports mild right-sided headache since the fall. She reports after the fall she was too weak to get up due to having an arthritic left hip. Patient denies having slurred speech or focal paralysis/weakness. In route patient found to have a markedly elevated blood pressure. Patient reports compliance with home medications. Related Data Home Medications Medication Instructions Recorded Confirmed aspirin 325 mg tablet 325 mg PO DAILY 01/30/19 04/28/20 cholecalciferol (vitamin D3) 50 mcg PO DAILY 07/05/19 04/28/20 [Vitamin D3] hydralazine 50 mg PO Q12H 04/02/20 04/28/20 levothyroxine [Synthroid] 50 mcg PO 0600 04/28/20 04/28/20 omeprazole 40 mg PO DAILY 04/28/20 04/28/20 Allergies Allergy/AdvReac Type Severity Reaction Status Date / Time benazepril Allergy Unknown Swelling Verified 04/28/20 10:49 of Lip/Tongue/Throat lisinopril Allergy Unknown Anaphylaxis Verified 04/28/20 10:49 Review of Systems Review of Systems: All systems reviewed & are unremarkable except as noted in HPI and below Constitutional: Constitutional: Denies chills, Denies fever(s) and Denies weakness ENT: Denies nasal congestion and Denies sore throat Cardiovascular: Cardiovascular: Denies chest pain, Denies rapid heart rate and Denies radiating jaw, neck or arm pain Respiratory: Respiratory: Denies cough, Denies dyspnea and Denies wheezing Gastrointestinal: Gastrointestinal: Denies abdominal pain, Denies nausea and Denies vomiting Neurologic: Reports dizziness, Reports headache(s), Denies focal weakness and Denies numbness PMFSH Past Medical History Medical History Anemia Essential (primary) hypertension 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 Hypothyroidism, unspecified Screening mammogram, encounter for Type II diabetes mellitus with renal manifestations Surgical History Surgical History History of bunionectomy of left great toe Presence of left artificial knee joint Presence of right artificial hip joint Presence of right artificial knee joint Family History Family History Mother Family history of diabetes mellitus in first degree relative Patient's mother is Acute myocardial infarction Diabetes mellitus Sibling Family history of sarcoidosis Family history of lupus erythematosus Father , age 49 [place] Acute myocardial infarction Other Cerebrovascular accident Family history of arthritis Hypertension Social History Social History Smoking packs per day: 2 Smoking cigarettes per day: 40.0 Years smoked: 20.0 Smoking pack-years: 40.00 Smoking status: Former smoker Second hand tobacco smoke exposure: No Smoking end date: 06/13/79 Alcohol intake: never Substance use: never Gender identity (if verbalized by the patient): Male Spiritual care concerns: No Agree to blood products: Yes Exam Narrative: Exam Narrative: GENERAL: Well-appearing, well-nourished, and in no acute distress. HEAD: Normocephalic, atraumatic. EYES: PERRL and EOMI. ENT: Mucous membranes moist. No tenderness or swelling over the mastoid bilaterally. CHEST: Cl
[2020-04-28 12:29] LABS: Add Urine Microscopic? YES; Appearance Urine Clear (Clear); Bacteria Urine Trace /hpf; Bilirubin Urine Negative (Negative); Blood Urine Negative (Negative); Color Urine Straw (Yellow); Glucose Urine UA Negative (Negative); Ketones Urine Negative (Negative); Leukocyte Esterase Ur Negative LEU/UL (Negative); Mucus Urine Rare /lpf; Nitrate Urine Negative (Negative); Protein Urine 3+ mg/dL (Negative); Specific Grav Ur 1.012 (1.001-1.035); Squamous Epithelial Cell Urine Rare /hpf (Few); Urobilinogen Urine Negative mg/dL (<2.0)
--- NOTE | 2020-04-28 13:45 | PC.NURSE ---
pt c/o of nausea, dizzyness. dry heaves vorb for zofran 4 mg ivp x1 from dr nieves.
--- NOTE | 2020-04-28 13:50 | PC.NURSE ---
pedrito to give ns 500ml ns x1 from dr nieves
[2020-04-28] MEDS: SODIUM CHLORIDE 0.9% IV 500 ML 999 ML (14:00)
[2020-04-28] MEDS: ONDANSETRON INJ 4 MG/2 ML VIAL (14:00)
--- NOTE | 2020-04-28 14:15 | ECG_ITS ---
Measurements Intervals [place] Rate: 71 P: 62 ME: 190 QRS: -28 QRSD: 109 T: 94 QT: 466 QTc: 508 Interpretive Statements SINUS RHYTHM DELAYED PRECORDIAL R/S TRANSITION LEFT VENTRICULAR HYPERTROPHY WITH ST-T CHANGE MINIMAL Q WAVES- HIGH LATERL LEADS BORDERLINE ECG Electronically Signed On 04-28-2020 14:22:59 LANDSCAPE CREW LEADER by Ashutosh Jones D.O.
[2020-04-28 14:39] LABS: Troponin I < 0.012 ng/mL (0.000-0.034)
--- NOTE | 2020-04-28 16:00 | ADMGEN ---
This patient, Lilian Mandel, was admitted to IMU Room 204-01. Patient/family oriented to hospital policies and general routines including ID bracelet, bed and alarms, visiting hours, pain management, procedures, bathroom and other care routines, personal items, smoking policy, room service/diet, and visiting hours. Information on how to activate the Rapid Response Team has been discussed. Patient/Family are encouraged to report perceived risks to care and to ask questions if they do not understand what they are told or what they should do.
[2020-04-28 16:17] LABS: Troponin I < 0.012 ng/mL (0.000-0.034)
--- NOTE | 2020-04-28 18:55 | PM.IMHP ---
H&P: HPI History of Present Illness Date/Time: 04/28/20 18:55 Chief Complaint: Dizziness Narrative: Lilian Mandel is a 80 year old female who presented to the emergency room was dizziness and fall. The patient had an episode back on 07/05/2019 where she had a hypertensive event and some dizziness at that time. Time with a normal EF of 60-65% with LVH. The patient was resumed on her medications and amlodipine was added as well. The patient does have a history of stage III chronic renal disease. Most likely due to the and controlled hypertension. Her A1c was 5.9 at that time. She also has chronic anemia. Today the patient's H&H is 9.5 and 30.2 the patient stated that she was frying chicken when she felt lightheaded and she might have passed out. The patient stated that she had the right side of her face and her head when she fell she said she started walking to the bathroom and she became unstable and she fell to the ground. She did lose consciousness. She does take a baby aspirin but no other blood thinners. Her daughter is at the bedside helping her answer questions. No fracture or acute intracranial process. Right ostomamastitis effusion. Creatinine is 4.1 today and last month of 3.9. Troponins negative x2. EKG sinus rhythm. Patient is being admitted for observation on the date of service of 04/28/2020 Review of Systems Review of Systems: Narrative: Complained of right arm pain. All systems reviewed & are unremarkable except as noted in HPI and below Constitutional: Constitutional: Reports as per HPI and Reports no additional constitutional complaints Eyes: Eyes: Reports as per HPI and Reports no additional eye complaints ENT: Reports system reviewed and no additional complaints, except as documented and Reports Normal hearing present Cardiovascular: Cardiovascular: Reports no additional cardiovascular complaints Respiratory: Respiratory: Reports no additional respiratory complaints and Reports no additional respiratory complaints Gastrointestinal: Gastrointestinal: Reports as per HPI and Reports no additional gastrointestinal complaints Musculoskeletal: Musculoskeletal: Reports no additional musculoskeletal complaints Integumentary/Breasts: Skin/Breast: Reports system reviewed and no additional complaints, except as docu and Reports as per HPI Neurologic: Reports system reviewed and no additional complaints, except as documented, Reports as per HPI and Reports Normal hearing present Psychiatric: Psychiatric: Reports no additional psychiatric complaints and Reports as per HPI Endocrine: Endocrine: Reports no additional endocrine complaints Hematologic/Lymphatic: Hematologic/Lymphatic: Reports no additional hematologic/lymphatic complaints Allergic/Immunologic: Allergic/Immunologic: Reports no additional allergic/immunologic complaints [facility] Past Medical History Medical History (Updated 04/28/20 @ 19:33 by Cheri Bagley NP) Anemia CKD (chronic kidney disease) Essential (primary) hypertension 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or Type II diabetes mellitus with renal manifestations Surgical History Surgical History (Updated 04/28/20 @ 19:36 by Cheri Bagley NP) H/O cataract extraction History of bunionectomy of left great toe History of right hip replacement Presence of left artificial knee joint Presence of right artificial hip joint Presence of right artificial knee joint Family History Family History Mother Family history of diabetes mellitus in first degree relative Patient's mother is Acute myocardial infarction Diabetes mellitus Sibling Family history of sarcoidosis Family history of lupus erythematosus Father , age 49 [place] Acute myocardial infarction Other C
[2020-04-28 20:09] LABS: Troponin I < 0.012 ng/mL (0.000-0.034)
[2020-04-28] MEDS: HYDROcodone/acetaminophen (*CRX) 5-325 MG TABLET 1 TAB PO (20:38)
[2020-04-28] MEDS: hydrALAZINE HCL 50 MG TABLET PO (20:38)
[2020-04-28] MEDS: LATANOPROST 0.005% OP SOLN 2.5 ML BTL 1 DROP EACH EYE (21:11)
[2020-04-28 21:12] LABS: Glucose Point of Care 220 (65-105)
[2020-04-29] VITALS (19 sets, daily range): BP systolic 128–182; BP diastolic 42–80; PULSE 55–86; RESP 14–20; TEMP 36.3–36.7; O2SAT 96–99
--- NOTE | 2020-04-29 | ECHO_ITS ---
Patient Info Name: Lilian Mandel Age: 80 years : 1940 Gender: Female Ht: 65 in Wt: 232 lbs BSA: 2.25 m2 HR: 65 bpm BP: 156 / 64 mmHg Heart Rhythm: Sinus Rhythm Technical Quality: Good Exam Date: 04/29/2020 1:40 PM Exam Location: [facility] Patient Status: Outpatient Admit Date: 04/28/2020 Staff Ordering Physician: Cheri Bagley NP Rotary Drill Operator: Bakari Coleman RDCS Attending Provider: Wing Gill MD Referring Physician: Kevyn FERNANDEZ; Exam Type: CA echo doppler w bubble study Study Info Indications R07.9 - Chest pain, unspecified Complete two-dimensional, color flow and Doppler transthoracic echocardiogram is performed with agitated saline. Contrast/Agitated Saline Contrast/Ag. Saline: Agitated Saline Amount: 18.00 ml Administered By: Poppy Hidalgo RN Existing IV Access: Yes History/Risk Factors Malignant HTN; chest pain, dizziness, CKD3, DM2. Summary 1. Left ventricular chamber dimension is mildly enlarged. 2. Left ventricular systolic function is normal, estimated at 55-60%. 3. There is severely increased left ventricular wall thickness. 4. The left ventricular diastolic function is grade I diastolic dysfunction. 5. Left atrial chamber dimension is mildly enlarged. 6. Intact interatrial septum visualized by color flow and agitated saline imaging. 7. There is mild aortic valve stenosis with a peak velocity of 179 cm/s, mean gradient of 7 mmHg, and aortic valve area of 1.5 cm2. 8. There is mild aortic valve calcification. 9. There is mild mitral valve regurgitation. 10. Mild pulmonary hypertension, estimated pulmonary arterial systolic pressure is 40 mmHg. 11. There is mild tricuspid valve regurgitation. Left Ventricle Left ventricular chamber dimension is mildly enlarged. Left ventricular systolic function is normal, estimated at 55-60%. There is severely increased left ventricular wall thickness. The left ventricular diastolic function is grade I diastolic dysfunction. Right Ventricle Right ventricular chamber dimension is normal. Right ventricular systolic function is normal. Left Atria Left atrial chamber dimension is mildly enlarged. Right Atria Right atrial chamber dimension is normal. Atrial Septum Intact interatrial septum visualized by color flow and agitated saline imaging. Aortic Valve The aortic valve is probable trileaflet. There is mild aortic valve sclerosis. There is mild aortic valve stenosis with a peak velocity of 179 cm/s, mean gradient of 7 mmHg, and aortic valve area of 1.5 cm2. There is trace aortic valve regurgitation. There is mild aortic valve calcification. Pulmonic Valve The pulmonic valve is normal. There is no pulmonic valve stenosis. There is trace pulmonic regurgitation. Mitral Valve The mitral valve has normal leaflets. There is no mitral valve stenosis. There is mild mitral valve regurgitation. Tricuspid Valve The tricuspid valve leaflets are normal. There is no significant tricuspid valve stenosis. There is mild tricuspid valve regurgitation. Mild pulmonary hypertension, estimated pulmonary arterial systolic pressure is 40 mmHg. Pericardium/Pleural The pericardium appears normal. There is trivial pericardial effusion. Inferior Vena Cava Normal inferior vena cava with <50% collapse upon inspiration consistent with elevated right atrial pressure, 10 mmHg. Aorta The aortic root
[2020-04-29 05:01] LABS: Basophils Percent Auto 0.3 % (0.2-1.2); Eosinophils Absolute Auto 0.2 K/mm3 (0-0.3); Eosinophils Percent Auto 3.4 % (0-4.4); Hematocrit 26.8 % (37.0-47.0); Hemoglobin 8.1 g/dL (12.0-15.0); Immature Granulocyte Absolute 0.02 K/mm3 (0.00-0.031); Immature Granulocyte Percent A 0.3 % (0-0.5); Lymphocytes Absolute Auto 1.07 K/mm3 (0.9-3.2); Lymphocytes Percent Auto 17.1 % (18.3-44.2); Mean Corpuscular HGB Conc 30.2 g/dl (32-36); Mean Corpuscular Hemoglobin 29.3 pg (26-34); Mean Corpuscular Volume 97.1 fl (80-100); Mean Platelet Volume 9.7 fl (7.4-10.4); Monocytes Absolute Auto 0.6 K/mm3 (0.1-0.6); Monocytes Percent Auto 9.1 % (2.6-8.5); Neutrophils Absolute Auto 4.4 K/mm3 (1.3-6.7); Neutrophils Percent Auto 69.8 % (45.5-73.1); Platelet Count Result 315 k/mm3 (150-375); Red Blood Count 2.76 M/mm3 (4.2-5.4); Red Cell Distribution Width 13.1 % (11.5-14.5); White Blood Count 6.2 K/mm3 (4.5-10.0)
[2020-04-29 05:13] LABS: Alanine Aminotransferase 10 U/L (4-35); Albumin Level 3.6 g/dL (3.5-5.1); Alkaline Phosphatase 46 U/L (38-126); Anion Gap 3 mmol/L (8-16); Aspartate Amino Transferase 24 U/L (14-36); Bilirubin,Total 0.3 mg/dL (0.2-1.3); Blood Urea Nitrogen 77 mg/dL (7-17); Calcium 9.3 mg/dL (8.4-10.2); Carbon Dioxide 27 mmol/L (22-30); Chloride 108 mmol/L (98-107); Estimated CRCL calculation 11 ml/min; Estimated Glomerular Filt Rate 12; Glucose 97 mg/dL (65-105); Lactate Dehydrogenase 421 U/L (313-618); Magnesium 2.2 mg/dL (1.6-2.3); Potassium 4.4 mmol/L (3.4-5.0); Sodium 138 mmol/L (137-145)
[2020-04-29 05:18] LABS: Hemoglobin A1C 5.3 % (<5.7)
[2020-04-29 05:19] LABS: Lactic Acid Reflex 0.5 mmol/L (0.7-2.1)
[2020-04-29] MEDS: LEVOTHYROXINE SODIUM 50 MCG TABLET PO (06:04)
--- NOTE | 2020-04-29 08:00 | PM.CNNEP ---
Assessment and Plan Assessment and plan (1) CKD (chronic kidney disease) stage 4, GFR 15-29 ml/min: Code(s): N18.4 - Chronic kidney disease, stage 4 (severe) Status: Acute Assessment and Plan: Lilian has chronic kidney disease. Looks like her GFR was 15 when she was last at the office. This has dropped a bit since then. Dr. Fulton wanted to do a kidney biopsy however her blood pressure was too high. Will hold her aspirin and control her blood pressure and if she is here long enough we can get a biopsy as an inpatient, and if not we can schedule it as an outpatient. Most likely her chronic kidney disease is related to the diabetes and high blood pressure. Her urine has protein but no blood. (2) Malignant hypertension: Code(s): I10 - Essential (primary) hypertension Status: Acute Assessment and Plan: Her blood pressure is very high. Apparently she told admissions that she is only on amlodipine and hydralazine. However Dr. Fulton shows that she should also be on carvedilol and losartan. Will restart these outpatient medications. Her GFR is 11. If her potassium rises at all we will stop the losartan. She is also on p.r.n. hydralazine. She may need stronger agents such as minoxidil if these do not work. (3) Dizziness: Code(s): R42 - Dizziness and giddiness Status: Acute Assessment and Plan: The dizziness might be related to her blood pressure. CT scan was negative. (4) Anemia: Code(s): D64.9 - Anemia, unspecified Status: Acute Assessment and Plan: Hemoglobin is 8.1. Will check irons and will give EPO once her blood pressure is better. (5) Type II diabetes mellitus with renal manifestations: Code(s): E11.29 - Type 2 diabetes mellitus with other diabetic kidney complication Status: Chronic Assessment and Plan: On Accu-Cheks and sliding-scale insulin (6) Mixed hyperlipidemia: Code(s): E78.2 - Mixed hyperlipidemia Status: Acute Assessment and Plan: On atorvastatin (7) Vitamin D deficiency: Code(s): E55.9 - Vitamin D deficiency, unspecified Status: Acute Assessment and Plan: Will check this. History of Present Illness Reason for Consult Consult date: 04/29/20 Chief Complaint Chief complaint: malignant htn dizziness chest pain History of Present Illness Narrative: Lilian is a very pleasant 80-year-old lady who has multiple medical problems including chronic kidney disease. She sees Dr. Fulton in the office. At 1 point he wanted to do a biopsy last month but her blood pressure was too high so it was canceled. It has not been rescheduled yet. The patient has a history of dizziness. This was 1st found back in June of 2020 her blood pressure was extremely high. She was admitted to the hospital and meds were adjusted and she improved and was discharged. Yesterday at home the patient was standing up in the kitchen and fell and hit her head. She did not lose consciousness. She called 911 and they came over to the emergency room. In the emergency room she was evaluated.Head CT was unremarkable. Multiple x-rays Showed no fracture. Her blood pressure was very high in the emergency room. She has been given medication and her blood pressure came down as low as 103 but recently has rebounded and now is 182. At home she was on amlodipine 5 mg, hydralazine 50 twice a day. Last time she was in the office she had a blood pressure of 154. And the list in the office shows that she was also on carvedilol 25 twice a day and losartan 100 mg a day. Her creatinine in the office was 3.9. She was admitted for further evaluation. Review of Systems Constitutional: Constitutional: Reports no additional constitutional complaints Eyes: Eyes: Reports no additional eye complaints ENT: Reports system reviewed and no additional complaints, except as documented Cardiovascular: Cardiovascular: Reports
[2020-04-29 08:26] LABS: Iron 52 ug/dL (37-170)
[2020-04-29 08:35] LABS: Percent Iron Saturation 18 % (20-50)
[2020-04-29 08:41] LABS: Immature Reticulocyte Fraction 12.2 % (3.0-15.9); Reticulocyte Percent 3.15 % (0.7-4.3); Reticulocytes Absolute 0.09 B/L (32.2-175.7)
[2020-04-29] MEDS: FUROSEMIDE 40 MG TABLET PO (08:47)
[2020-04-29] MEDS: amLODIPine BESYLATE 5 MG TABLET PO (08:48)
[2020-04-29] MEDS: CHOLECALCIFEROL 1,000 UNITS TABLET 2000 UNITS PO (08:48)
[2020-04-29] MEDS: PANTOPRAZOLE 40 MG TABLET PO ×2 (08:48→18:26)
[2020-04-29] MEDS: hydrALAZINE HCL 50 MG TABLET PO ×2 (08:48→20:42)
[2020-04-29] MEDS: glipiZIDE XL 5 MG TABCR BY MOUTH (08:48)
[2020-04-29] MEDS: carvediloL 25 MG TABLET PO ×2 (08:49→20:42)
[2020-04-29] MEDS: LOSARTAN POTASSIUM 100 MG TABLET PO (08:49)
[2020-04-29] MEDS: ACETAMINOPHEN 325 MG TABLET 650 MG PO (08:51)
[2020-04-29 09:02] LABS: Glucose Point of Care 84 (65-105)
[2020-04-29 09:38] LABS: Folic Acid 17.6 ng/mL (2.76->20)
--- NOTE | 2020-04-29 12:00 | PM.IMPN ---
Progress Note: A&P Assessment and Plan (1) Dizziness: Code(s): R42 - Dizziness and giddiness Status: Acute Assessment and Plan: The patient had a similar episode in the past. CT scan of the brain was negative. Echo with bubble showing EF 55% with diastolic dysfunction and no shunt. Brain MRI showing no acute findings. Other xrays negative for fracture. WIll check knee xrays since she has pain and hx of joint replacements. Suspect her symptoms related to severely elevated BP. Consider hypoglycemia as well. PT OT evaluation. Care coordination evaluation. Appreciate neurology input. (2) Malignant hypertension: Code(s): I10 - Essential (primary) hypertension Status: Acute Assessment and Plan: Patient's blood pressure was reviewed on 04/29. BP markedly elevated on admission at 232/79. Medications resumed and blood pressure better controlled. Will continue current medications with Coreg, cozaar, amlodipine, and hydralazine. (3) CORY (acute kidney injury): Code(s): N17.9 - Acute kidney failure, unspecified Status: Acute Assessment and Plan: Cr4.1 on admission but climbing to 4,4 today. Renal ultrasound showing medical renal disease. Nephrology has been consulted. Will hold Lasix. (4) CKD (chronic kidney disease): Code(s): N18.9 - Chronic kidney disease, unspecified Status: Chronic Assessment and Plan: Kidney disease appears to be worsening. In 2019, Cr running mostly in the 2 range but 3.9 in march 2020. As above. (5) Obstructive sleep apnea: Code(s): G47.33 - Obstructive sleep apnea (adult) (pediatric) Status: Chronic Assessment and Plan: She denies that she has LALA. She is refusing CPAP. Okay to stop CPAP due to nonuse (6) Mixed hyperlipidemia: Code(s): E78.2 - Mixed hyperlipidemia Status: Acute Assessment and Plan: LFTs okay. Continue Lipitor. (7) Type II diabetes mellitus with renal manifestations: Code(s): E11.29 - Type 2 diabetes mellitus with other diabetic kidney complication Status: Chronic Assessment and Plan: A1c 5.3. The patient's blood glucose was reviewed on 04/29 Glucose remains well controlled. Continue AccuCheks covering with sliding scale. Hypoglycemia protocol available as needed. Stop glipizide since could be causing hypoglycemia. (8) Hypothyroidism, unspecified: Code(s): E03.9 - Hypothyroidism, unspecified Status: Chronic Assessment and Plan: TSH normal. Contineu levothyroxine (9) DVT prophylaxis: Code(s): Z29.9 - Encounter for prophylactic measures, unspecified Status: Acute Assessment and Plan: SCDs Subjective Date/time seen: 04/29/20 12:00 Interval history: Date of service 04/29/20 80yo femael here after feeling dizzy and falling with loss of consciousness. She still feels pain in her right side of her face in bilateral knees. She has not been out of bed. She did not wear the CPAP last night. She denies hx of sleep apnea. No chest pain or shortness of breath. She denies nausea or vomiting today. She did have emesis yesterday. Eating well today. She does not check her glucose at home. Exam Narrative: Exam Narrative: AF 97.4 156/64 74 18 96% ra Gen - NARD Chest - CTA bilaterally, nml RR CV - RRR S1/S2; Tele showing no significant dysrhythmia Abd - Soft, NT/ND, Positive BS Ext - No pedal edema; R>L anterior knee pain with small ecchymosis. pain with passive and active flexion of the knees Psych - Nml mood and affect Skin - Warm and dry Objective Data Vital Signs Vital Signs: Vital Signs - 24 hr 04/28/20 12:02 04/28/20 12:15 04/28/20 12:16 Temperature Pulse Rate 88 88 86 Respiratory Rate 16 15 15 Blood Pressure 200/62 H 186/66 H Pulse Oximetry 100 99 100 04/28/20 12:17 04/28/20 12:30 04/28/20 12:31 Temperature Pulse Rate 86 86 86 Respirat
[2020-04-29 12:34] LABS: Glucose Point of Care 132 (65-105)
--- NOTE | 2020-04-29 15:11 | WPDNEURCNPN ---
Assessment and Plan Additional Plan dizziness related to multi factors MRI at this stage is normal but Doppler study of the carotid revealed 50 to 69% stenosis in right internal carotid artery again because of chronic renal disease medication will be continued as such Consult date: 04/29/20 Time Seen: 15:00 HPI: Lilian Mandel is a 80 year old female admitted to the hospital through the emergency room for the complaints of dizziness in addition to the ongoing history of hypertension and at times severe uncontrolled patient does carry the history of stage III chronic renal disease and chronic anemia as per the information available while she was working she felt lightheaded and reportedly passed out subsequently she was unstable and fell to the ground and became unconscious there was no fracture evaluation documented creatinine of 4.1 martinez last month it was 3.9 troponins negative EKG in sinus rhythm patient was admitted to the hospital for further observation. CBC with hemoglobin of 8.1 WBC 6.2 platelet count 315 basic metabolic panel normal except the BUN of 77 with creatinine of 4.4 as mentioned before and GFR only 12, B12 649 with folate 17.6 TSH 3.18 disease and UA neck, brain MRI normal, renal ultrasound compatible with medical renal disease, knee x-rays with left knee joint replacement and mild suprapatellar effusion, urine culture pending, seen by Dr. 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or Type II diabetes mellitus with renal manifestations Surgical History Surgical History H/O cataract extraction History of bunionectomy of left great toe History of right hip replacement Presence of left artificial knee joint Presence of right artificial hip joint Presence of right artificial knee joint Family History Family History Mother Family history of diabetes mellitus in first degree relative Patient's mother is Acute myocardial infarction Diabetes mellitus Sibling Family history of sarcoidosis Family history of lupus erythematosus Father , age 49 [place] Acute myocardial infarction Other Cerebrovascular accident Family history of arthritis Hypertension Social History Social History Social History: The patient has 9 children. Her daughter that lives in [place] is a durable power litigation attorney associate for healthcare. The patient desires to be a full code. 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 She is . She used to smoke many years ago. No alcohol or illicit drugs. Smoking packs per day: 1 Smoking cigarettes per day: 20.0 Years smoked: 15 Smoking pack-years: 15.00 Smoking status: Former smoker Second hand tobacco smoke exposure: No Smoking end date: 06/13/79 Alcohol intake: never Substance use: never Gender identity (if verbalized by the patient): Female Spiritual care concerns: No Agree to blood products: Yes Meds Home Medications and Allergies Home Medications Medication Instructions Recorded Confirmed Type aspirin 325 mg tablet 325 mg PO DAILY 01/30/19 04/28/20 History cholecalciferol (vitamin D3) 50 mcg PO DAILY 07/05/19 04/28/20 History [Vitamin D3] furosemide 40 mg tabl
[2020-04-29 17:18] LABS: Glucose Point of Care 203 (65-105)
[2020-04-29] MEDS: INSULIN ASPART (*BKC) 100 UNITS/ML SUB-Q (18:26)
[2020-04-29 20:16] LABS: Glucose Point of Care 128 (65-105)
[2020-04-29] MEDS: LATANOPROST 0.005% OP SOLN 2.5 ML BTL 1 DROP EACH EYE (20:42)
[2020-04-29] MEDS: MORPHINE SULFATE (*CRX) 4 MG/ML INJ IV PUSH (21:35)
--- NOTE | 2020-04-29 22:32 | ECG_ITS ---
Measurements Intervals [place] Rate: 62 P: 73 VT: 160 QRS: -21 QRSD: 102 T: 105 QT: 448 QTc: 455 Interpretive Statements SINUS RHYTHM DELAYED PRECORDIAL R/S TRANSITION VOLTAGE CRITERIA FOR LVH BORDERLINE T WAVE ABNORMALITY- HIGH LATERAL LEADS BASELINE ARTIFACT- I, II, III, AVR, AVL, V2 BORDERLINE ECG Electronically Signed On 04-30-2020 7:05:09 [employer] by Ashutosh Jones D.O.
[2020-04-29 23:39] LABS: Troponin I < 0.012 ng/mL (0.000-0.034)
[2020-04-30] VITALS (16 sets, daily range): BP systolic 140–159; BP diastolic 47–70; PULSE 54–68; RESP 16–20; TEMP 36–36.7; O2SAT 96–99
[2020-04-30 05:14] LABS: Basophils Percent Auto 0.6 % (0.2-1.2); Eosinophils Absolute Auto 0.3 K/mm3 (0-0.3); Eosinophils Percent Auto 6.5 % (0-4.4); Hematocrit 24.8 % (37.0-47.0); Hemoglobin 7.6 g/dL (12.0-15.0); Immature Granulocyte Absolute 0.02 K/mm3 (0.00-0.031); Immature Granulocyte Percent A 0.4 % (0-0.5); Lymphocytes Absolute Auto 1.28 K/mm3 (0.9-3.2); Mean Corpuscular HGB Conc 30.6 g/dl (32-36); Mean Corpuscular Hemoglobin 29.3 pg (26-34); Mean Corpuscular Volume 95.8 fl (80-100); Mean Platelet Volume 9.8 fl (7.4-10.4); Monocytes Absolute Auto 0.5 K/mm3 (0.1-0.6); Monocytes Percent Auto 10.1 % (2.6-8.5); Neutrophils Absolute Auto 2.8 K/mm3 (1.3-6.7); Neutrophils Percent Auto 56.4 % (45.5-73.1); Platelet Count Result 262 k/mm3 (150-375); Red Blood Count 2.59 M/mm3 (4.2-5.4); Red Cell Distribution Width 12.8 % (11.5-14.5); White Blood Count 4.9 K/mm3 (4.5-10.0)
[2020-04-30 05:29] LABS: Anion Gap 5 mmol/L (8-16); Blood Urea Nitrogen 85 mg/dL (7-17); Calcium 8.5 mg/dL (8.4-10.2); Carbon Dioxide 25 mmol/L (22-30); Chloride 107 mmol/L (98-107); Estimated CRCL calculation 11 ml/min; Estimated Glomerular Filt Rate 11; Glucose 115 mg/dL (65-105); Magnesium 2.2 mg/dL (1.6-2.3); Phosphorus 5.5 mg/dL (2.5-4.5); Potassium 4.6 mmol/L (3.4-5.0); Sodium 137 mmol/L (137-145)
[2020-04-30] MEDS: LEVOTHYROXINE SODIUM 50 MCG TABLET PO (06:00)
[2020-04-30] MEDS: ATORVASTATIN 20 MG TABLET PO (08:38)
[2020-04-30] MEDS: LOSARTAN POTASSIUM 100 MG TABLET PO (08:39)
[2020-04-30] MEDS: amLODIPine BESYLATE 5 MG TABLET PO (08:39)
[2020-04-30] MEDS: carvediloL 25 MG TABLET PO ×2 (08:39→20:24)
[2020-04-30] MEDS: PANTOPRAZOLE 40 MG TABLET PO ×2 (08:39→18:27)
[2020-04-30] MEDS: hydrALAZINE HCL 50 MG TABLET PO ×2 (08:40→20:24)
[2020-04-30] MEDS: CHOLECALCIFEROL 1,000 UNITS TABLET 2000 UNITS PO (08:40)
[2020-04-30 08:45] LABS: Glucose Point of Care 88 (65-105)
[2020-04-30 11:58] LABS: Glucose Point of Care 116 (65-105)
--- NOTE | 2020-04-30 13:33 | PM.PNNEP ---
Progress Note: A&P Assessment and Plan (1) CKD (chronic kidney disease) stage 4, GFR 15-29 ml/min: Code(s): N18.4 - Chronic kidney disease, stage 4 (severe) Status: Acute Assessment and Plan: Lilian has chronic kidney disease. Looks like her GFR was 15 when she was last at the office. This has dropped a bit since then. This could be from her diabetes and hypertension. reviewing the records, serology negative, SIfx neg. will check uIfx. Dr. Fulton wanted to do a kidney biopsy however her blood pressure was too high. Will hold her aspirin and control her blood pressure and if she is here long enough we can get a biopsy as an inpatient, and if not we can schedule it as an outpatient. Most likely her chronic kidney disease is related to the diabetes and high blood pressure. Her urine has protein but no blood. D/W Dr Alcantara (2) Malignant hypertension: Code(s): I10 - Essential (primary) hypertension Status: Acute Assessment and Plan: Her blood pressure is very high. Apparently she told admissions that she is only on amlodipine and hydralazine. However Dr. Fulton shows that she should also be on carvedilol and losartan. the creatinine is up a bit. Will stop the losartan and inc amlod Because her blood pressure was so high, I think a range of 140-160 is a reasonable number for the next month or so. If we try to go to low than the creatinine might rise due to dysautoregulation. She is also on p.r.n. hydralazine. (3) Dizziness: Code(s): R42 - Dizziness and giddiness Status: Acute Assessment and Plan: The dizziness might be related to her blood pressure. CT scan was negative. (4) Anemia: Code(s): D64.9 - Anemia, unspecified Status: Acute Assessment and Plan: Hemoglobin is 8.1. give venofer. start epo since bp is down (5) Type II diabetes mellitus with renal manifestations: Code(s): E11.29 - Type 2 diabetes mellitus with other diabetic kidney complication Status: Chronic Assessment and Plan: On Accu-Cheks and sliding-scale insulin (6) Mixed hyperlipidemia: Code(s): E78.2 - Mixed hyperlipidemia Status: Acute Assessment and Plan: On atorvastatin (7) Vitamin D deficiency: Code(s): E55.9 - Vitamin D deficiency, unspecified Status: Acute Assessment and Plan: Will check this. Subjective Date/time seen: 04/30/20 13:33 Interval history: Lilian is not feeling very good right now. She just had some nausea and some lightheadedness. She is feeling better now. No shortness of breath. She says that she had not had morning nausea at home. She has no chest pain or belly pain. No diarrhea. Review of Systems Cardiovascular: Cardiovascular: Reports no additional cardiovascular complaints Respiratory: Respiratory: Reports no additional respiratory complaints Gastrointestinal: Gastrointestinal: Reports no additional gastrointestinal complaints Genitourinary: Genitourinary: Reports no additional female genitourinary complaints Exam Narrative: Exam Narrative: WDWN in NAD skin no rash head ncat lungs clear cor reg no rub abd BS+ nontender and soft ext no edema. Objective Data Vital Signs Vital Signs: Vital Signs - 24 hr 04/29/20 16:00 04/29/20 17:04 04/29/20 17:05 Temperature 36.5 C 36.5 C Pulse Rate 61 61 Respiratory Rate 18 18 Blood Pressure 144/42 H 144/42 H 131/59 L Pulse Oximetry 98 98 04/29/20 17:06 04/29/20 18:00 04/29/20 19:54 Temperature 36.6 C Pulse Rate 61 57 L Respiratory Rate 18 Blood Pressure 153/42 H 153/46 H Pulse Oximetry 99 04/29/20 20:00 04/29/20 20:42 04/29/20 21:35 Temperature 36.6 C Pulse Rate 55 L 76 Respiratory Rate 18 Blood Pressure 153/46 H 160/50 H Pulse Oximetry 99 04/29/20 22:00 04/29/20 23:26 04/29/20 23:51 Temperature 36.7 C Pulse Rate 66 86 70 Respiratory Rate 18 18 Blo
[2020-04-30] MEDS: EPOETIN ALFA-EPBX 10,000 UNITS/ML VIAL 10000 UNITS SUB-Q (14:12)
[2020-04-30 15:08] LABS: Vitamin D 25 Hydroxy 24.2 ng/mL
--- NOTE | 2020-04-30 16:58 | PM.IMPN ---
Progress Note: A&P Assessment and Plan (1) Chest pain: Code(s): R07.9 - Chest pain, unspecified Status: Acute Assessment and Plan: Patietn with chest pain at rest last night. Trop negative x 3. EKG showing boarderline T wave changes in the high lateral leads. No significant dysrhythmias on telemetry. Continue to monitor and IMU for now. (2) Anemia: Code(s): D64.9 - Anemia, unspecified Status: Acute Assessment and Plan: Hemoglobin 9.5 on admission. Iron and TIBC levels normal with a slightly low saturation of 18%. Ferritin normal at 130. Hemoglobin dropped to 7.6 today. IV iron and Epogen started. Continue to monitor H&H. Transfuse as needed. (3) Dizziness: Code(s): R42 - Dizziness and giddiness Status: Acute Assessment and Plan: The patient had a similar episode in the past. CT scan of the brain was negative. Echo with bubble showing EF 55% with diastolic dysfunction and no shunt. Brain MRI showing no acute findings. Other xrays negative for fracture. Not orthostatic. Suspect her symptoms related to severely elevated BP. Hypoglycemia was considered as well and her glipizide was stopped. However, she is still having these symptoms. Possibly related to uremia? Contineu PT and OT. Plan for home with home health at time of discharge. (4) Malignant hypertension: Code(s): I10 - Essential (primary) hypertension Status: Acute Assessment and Plan: Patient's blood pressure was reviewed on 04/30. BP markedly elevated on admission at 232/79. Medications resumed and blood pressure better controlled. Will continue current medications with Coreg, amlodipine, and hydralazine. Cozaar stopped due to worsening renal function. (5) CORY (acute kidney injury): Code(s): N17.9 - Acute kidney failure, unspecified Status: Acute Assessment and Plan: Cr4.1 on admission but climbing to 4.5 today; BUN at 85. Renal ultrasound showing medical renal disease. Lasix and now cozaar on hold. Urine Prot/Cr ration 5.16 in March. Albumin 3.0 today. Nephrology following. Consider IV flluids but patietn eating well 75-100% of meals. (6) CKD (chronic kidney disease): Qualifiers: Chronic kidney disease stage: stage 4 (severe) Qualified Code(s): N18.4 - Chronic kidney disease, stage 4 (severe) Code(s): N18.9 - Chronic kidney disease, unspecified Status: Chronic Assessment and Plan: Kidney disease appears to be worsening. In 2019, Cr running mostly in the 2 range but 3.9 in March 2020 with severe proteinuria. As above. (7) Obstructive sleep apnea: Code(s): G47.33 - Obstructive sleep apnea (adult) (pediatric) Status: Chronic Assessment and Plan: She denies that she has LALA. She is refusing CPAP. Okay to stop CPAP due to nonuse. Check apnea link. (8) Mixed hyperlipidemia: Code(s): E78.2 - Mixed hyperlipidemia Status: Acute Assessment and Plan: LFTs okay. Continue Lipitor. (9) Type II diabetes mellitus with renal manifestations: Qualifiers: Chronic kidney disease stage: stage 4 (severe) Diabetes mellitus complication detail: with chronic kidney disease Diabetes mellitus rn long term care insulin use: without longterm use Qualified Code(s): E11.22 - Type 2 diabetes mellitus with diabetic chronic kidney disease; N18.4 - Chronic kidney disease, stage 4 (severe) Code(s): E11.29 - Type 2 diabetes mellitus with other diabetic kidney complication Status: Chronic Assessment and Plan: A1c 5.3. The patient's blood glucose was reviewed on 04/30 Glucose remains well controlled. Continue AccuCheks covering with sliding scale. Hypoglycemia protocol available as needed. Stop glipizide since could be causing hypoglycemia. (10) Hypothyroidism, unspecified: Qualifiers: Hypothyroidism type: acquired Qualified Code(s):
[2020-04-30 17:05] LABS: Glucose Point of Care 143 (65-105)
[2020-04-30] MEDS: IRON SUCROSE COMPLEX 200 MG in SODIUM CHLORIDE 0.9% IV 50 ML 120 MG IVPB (18:27)
[2020-04-30] MEDS: HEPARIN SODIUM 5,000 UNITS/ML VIAL 5000 UNITS SUB-Q (20:23)
[2020-04-30] MEDS: LATANOPROST 0.005% OP SOLN 2.5 ML BTL 1 DROP EACH EYE (20:24)
[2020-04-30] MEDS: HYDROcodone/acetaminophen (*CRX) 5-325 MG TABLET 1 TAB PO (20:24)
[2020-04-30 20:28] LABS: Glucose Point of Care 135 (65-105)
[2020-05-01] VITALS (17 sets, daily range): BP systolic 105–186; BP diastolic 45–84; PULSE 50–71; RESP 16–20; TEMP 35.9–36.6; O2SAT 96–100
[2020-05-01] MEDS: LEVOTHYROXINE SODIUM 50 MCG TABLET PO (05:54)
[2020-05-01 06:37] LABS: Basophils Percent Auto 0.6 % (0.2-1.2); Eosinophils Absolute Auto 0.4 K/mm3 (0-0.3); Eosinophils Percent Auto 6.6 % (0-4.4); Hematocrit 25.2 % (37.0-47.0); Hemoglobin 7.8 g/dL (12.0-15.0); Immature Granulocyte Absolute 0.03 K/mm3 (0.00-0.031); Immature Granulocyte Percent A 0.6 % (0-0.5); Lymphocytes Percent Auto 25.7 % (18.3-44.2); Mean Corpuscular Volume 96.9 fl (80-100); Mean Platelet Volume 9.6 fl (7.4-10.4); Monocytes Absolute Auto 0.5 K/mm3 (0.1-0.6); Neutrophils Absolute Auto 3.1 K/mm3 (1.3-6.7); Neutrophils Percent Auto 57.5 % (45.5-73.1); Platelet Count Result 260 k/mm3 (150-375); Red Cell Distribution Width 12.6 % (11.5-14.5); White Blood Count 5.4 K/mm3 (4.5-10.0)
[2020-05-01 06:57] LABS: Albumin Level 3.1 g/dL (3.5-5.1); Anion Gap 7 mmol/L (8-16); Blood Urea Nitrogen 83 mg/dL (7-17); Calcium 8.5 mg/dL (8.4-10.2); Carbon Dioxide 23 mmol/L (22-30); Chloride 106 mmol/L (98-107); Estimated CRCL calculation 10 ml/min; Estimated Glomerular Filt Rate 11; Glucose 118 mg/dL (65-105); Phosphorus 4.9 mg/dL (2.5-4.5); Potassium 4.4 mmol/L (3.4-5.0); Sodium 136 mmol/L (137-145)
[2020-05-01] MEDS: PANTOPRAZOLE 40 MG TABLET PO ×2 (08:21→17:33)
[2020-05-01] MEDS: carvediloL 25 MG TABLET PO ×2 (08:21→21:22)
[2020-05-01] MEDS: amLODIPine BESYLATE 5 MG TABLET 10 MG PO (08:21)
[2020-05-01] MEDS: ATORVASTATIN 20 MG TABLET PO (08:22)
[2020-05-01] MEDS: HEPARIN SODIUM 5,000 UNITS/ML VIAL 5000 UNITS SUB-Q ×2 (08:22→21:23)
[2020-05-01] MEDS: hydrALAZINE HCL 50 MG TABLET PO ×2 (08:22→21:23)
[2020-05-01] MEDS: CHOLECALCIFEROL 1,000 UNITS TABLET 2000 UNITS PO (08:22)
[2020-05-01 08:28] LABS: Glucose Point of Care 99 (65-105)
--- NOTE | 2020-05-01 11:40 | PM.PNNEP ---
Progress Note: A&P Assessment and Plan (1) CKD (chronic kidney disease) stage 4, GFR 15-29 ml/min: Code(s): N18.4 - Chronic kidney disease, stage 4 (severe) Status: Acute Assessment and Plan: Lilian has chronic kidney disease. This could be from her diabetes and hypertension. reviewing the records, serology negative, SIfx neg. will check uIfx. Dr. Fulton wanted to do a kidney biopsy however her blood pressure was too high. Will hold her aspirin and control her blood pressure and if she is here long enough we can get a biopsy as an inpatient, and if not we can schedule it as an outpatient. Most likely her chronic kidney disease is related to the diabetes and high blood pressure. Her urine has protein but no blood. she has no more nausea. As long as she is eating okay I think we can hold off on dialysis. We can do more dialysis education as an outpatient and possibly work toward starting dialysis as an outpatient if her kidney function does not improve. (2) Malignant hypertension: Code(s): I10 - Essential (primary) hypertension Status: Acute Assessment and Plan: Her blood pressure is much better today. It is ranging between 140 and 160, the current target. She is on amlodipine, hydralazine, and carvedilol. She is also on p.r.n. hydralazine. (3) Dizziness: Code(s): R42 - Dizziness and giddiness Status: Acute Assessment and Plan: The dizziness might be related to her blood pressure. CT scan was negative. This has improved. (4) Anemia: Code(s): D64.9 - Anemia, unspecified Status: Acute Assessment and Plan: Hemoglobin is 8.1. give venofer. start epo since bp is down (5) Type II diabetes mellitus with renal manifestations: Qualifiers: Diabetes mellitus care home insulin use: without care home use Diabetes mellitus complication detail: with chronic kidney disease Chronic kidney disease stage: stage 4 (severe) Qualified Code(s): E11.22 - Type 2 diabetes mellitus with diabetic chronic kidney disease; N18.4 - Chronic kidney disease, stage 4 (severe) Code(s): E11.29 - Type 2 diabetes mellitus with other diabetic kidney complication Status: Chronic Assessment and Plan: On Accu-Cheks and sliding-scale insulin (6) Mixed hyperlipidemia: Code(s): E78.2 - Mixed hyperlipidemia Status: Acute Assessment and Plan: On atorvastatin (7) Vitamin D deficiency: Code(s): E55.9 - Vitamin D deficiency, unspecified Status: Acute Assessment and Plan: Vitamin-D is low. On supplement. Subjective Date/time seen: 05/01/20 11:40 Interval history: The patient is feeling better this morning. No nausea or lightheadedness. She still feels somewhat block. She has no chest pain or belly pain. No diarrhea. Exam Narrative: Exam Narrative: WDWN in NAD skin no rash head ncat lungs clear Bilaterally cor reg no rub abd BS+ nontender and soft ext no edema or cyanosis Objective Data Vital Signs Vital Signs: Vital Signs - 24 hr 04/30/20 12:00 04/30/20 13:00 04/30/20 14:00 Temperature 36.0 C L Pulse Rate 54 L 62 Respiratory Rate 16 Blood Pressure 152/58 H 159/60 H Pulse Oximetry 98 04/30/20 16:00 04/30/20 18:00 04/30/20 20:00 Temperature 36.4 C 36.7 C Pulse Rate 63 62 58 L Respiratory Rate 18 20 Blood Pressure 143/47 H 151/47 H Pulse Oximetry 98 96 04/30/20 20:24 04/30/20 22:00 04/30/20 23:34 Temperature Pulse Rate 58 L 58 L Respiratory Rate Blood Pressure Pulse Oximetry 96 05/01/20 00:00 05/01/20 02:00 05/01/20 04:00 Temperature 36.6 C 36.6 C Pulse Rate 55 L 51 L 52 L Respiratory Rate 20 18 Blood Pressure 137/46 L 142/52 H Pulse Oximetry 98 99 05/01/20 06:00 05/01/20 08:00 05/01/20 08:21 Temperature 36.4 C Pulse Rate 64 52 L 64 Respiratory Rate 16 Blood Pressure 159/53 H Pulse Oximetry
[2020-05-01 12:04] LABS: Glucose Point of Care 117 (65-105)
--- NOTE | 2020-05-01 14:01 | PM.IMPN ---
Progress Note: A&P Assessment and Plan (1) Chest pain: Code(s): R07.9 - Chest pain, unspecified Status: Acute Assessment and Plan: Patietn with chest pain the evening on 04/29 but no recurrence. Trop negative. EKG showing borderline T wave changes in the high lateral leads. No significant dysrhythmias on telemetry. Continue to monitor. (2) Anemia: Code(s): D64.9 - Anemia, unspecified Status: Acute Assessment and Plan: Hemoglobin 9.5 on admission. Iron and TIBC levels normal with a slightly low saturation of 18%. Ferritin normal at 130. Hemoglobin dropped to 7.6 yesterday but stable. IV iron and Epogen started. Continue to monitor H&H. Transfuse as needed. (3) Dizziness: Code(s): R42 - Dizziness and giddiness Status: Acute Assessment and Plan: The patient had a similar episode in the past. CT scan of the brain was negative. Echo with bubble showing EF 55% with diastolic dysfunction and no shunt. Brain MRI showing no acute findings. Carotid doppler showing Rt carotid 50-69% stenosis with left <50% stenosis. Other xrays negative for fracture. Not orthostatic. Suspect her symptoms related to severely elevated BP. Hypoglycemia was considered as well and her glipizide was stopped. However, she is still having these symptoms. Possibly related to uremia? Continue PT and OT. Plan for home with home health at time of discharge. (4) Malignant hypertension: Code(s): I10 - Essential (primary) hypertension Status: Acute Assessment and Plan: BP markedly elevated on admission at 232/79. Patient's blood pressure was reviewed on 05/01. Medications resumed and blood pressure mostly controlled. Will continue current medications with Coreg, amlodipine, and hydralazine. Cozaar stopped due to worsening renal function. (5) CORY (acute kidney injury): Code(s): N17.9 - Acute kidney failure, unspecified Status: Acute Assessment and Plan: Cr4.1 on admission but climbing to 4.8 today; BUN at 83. Renal ultrasound showing medical renal disease. Lasix and Cozaar on hold. Urine Prot/Cr ration 5.16 in March. Albumin 3.0 today. Nephrology following. Discussed with Nephrology. Plan to start IV fluids and consult Surgery for PermaCath placement. (6) CKD (chronic kidney disease): Qualifiers: Chronic kidney disease stage: stage 4 (severe) Qualified Code(s): N18.4 - Chronic kidney disease, stage 4 (severe) Code(s): N18.9 - Chronic kidney disease, unspecified Status: Chronic Assessment and Plan: Kidney disease appears to be worsening. In 2019, Cr running mostly in the 2 range but 3.9 in March 2020 with severe proteinuria. As above. (7) Obstructive sleep apnea: Code(s): G47.33 - Obstructive sleep apnea (adult) (pediatric) Status: Chronic Assessment and Plan: She denies that she has LALA. Apnea link normal. Monitor. (8) Mixed hyperlipidemia: Code(s): E78.2 - Mixed hyperlipidemia Status: Acute Assessment and Plan: LFTs okay. Continue Lipitor. 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 The patient's blood glucose was reviewed on 05/01 Glucose remains well controlled. Continue AccuCheks covering with sliding scale. Hypoglycemia protocol available as needed. Glipizide stopped since could be causing hypoglycemia. (10) Hypothyroidism, unspecifie
[2020-05-01] MEDS: SODIUM CHLORIDE 0.9% IV 1,000 ML 70 ML IV CONT (14:40)
[2020-05-01] MEDS: IRON SUCROSE COMPLEX 200 MG in SODIUM CHLORIDE 0.9% IV 50 ML 50 MG IVPB (17:32)
[2020-05-01 18:11] LABS: Glucose Point of Care 127 (65-105)
[2020-05-01] MEDS: LATANOPROST 0.005% OP SOLN 2.5 ML BTL 1 DROP EACH EYE (21:23)
[2020-05-01 21:24] LABS: Glucose Point of Care 107 (65-105)
[2020-05-02] VITALS (14 sets, daily range): BP systolic 134–168; BP diastolic 37–70; PULSE 51–66; RESP 18–20; TEMP 35.9–36.4; O2SAT 93–100
[2020-05-02] MEDS: SODIUM CHLORIDE 0.9% IV 1,000 ML 70 ML IV CONT ×2 (04:25→17:35)
[2020-05-02 05:08] LABS: Hematocrit 24.9 % (37.0-47.0); Hemoglobin 7.6 g/dL (12.0-15.0); Mean Corpuscular HGB Conc 30.5 g/dl (32-36); Mean Corpuscular Hemoglobin 28.9 pg (26-34); Mean Corpuscular Volume 94.7 fl (80-100); Mean Platelet Volume 10.3 fl (7.4-10.4); Platelet Count Result 284 k/mm3 (150-375); Red Blood Count 2.63 M/mm3 (4.2-5.4); Red Cell Distribution Width 12.7 % (11.5-14.5)
[2020-05-02 05:21] LABS: Albumin Level 3.3 g/dL (3.5-5.1); Anion Gap 5 mmol/L (8-16); Blood Urea Nitrogen 84 mg/dL (7-17); Calcium 8.6 mg/dL (8.4-10.2); Carbon Dioxide 23 mmol/L (22-30); Chloride 108 mmol/L (98-107); Estimated CRCL calculation 12 ml/min; Estimated Glomerular Filt Rate 12; Glucose 119 mg/dL (65-105); Phosphorus 4.5 mg/dL (2.5-4.5); Potassium 4.4 mmol/L (3.4-5.0); Sodium 136 mmol/L (137-145)
[2020-05-02] MEDS: LEVOTHYROXINE SODIUM 50 MCG TABLET PO (06:33)
--- NOTE | 2020-05-02 07:41 | PM.CNGS ---
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: Code(s): I13.0 - Hypertensive heart and chronic kidney disease with heart failure and stage 1 through stage 4 chronic kidney disease, or unspecified chronic kidney disease; I50.812 - Chronic right heart failure; N18.3 - Chronic kidney disease, stage 3 (moderate) Status: Acute Assessment and Plan: supportive measures, gentle hydration (4) Anemia: Code(s): D64.9 - Anemia, unspecified Status: Acute Assessment and Plan: due to chronic conditions, cont current mgmt (5) Type II diabetes mellitus with renal manifestations: Qualifiers: Diabetes mellitus shelter insulin use: without terminal system operator use Diabetes mellitus complication detail: with chronic kidney disease Chronic kidney disease stage: stage 4 (severe) Qualified Code(s): E11.22 - Type 2 diabetes mellitus with diabetic chronic kidney disease; N18.4 - Chronic kidney disease, stage 4 (severe) Code(s): E11.29 - Type 2 diabetes mellitus with other diabetic kidney complication Status: Chronic Assessment and Plan: mgmt per primary team History of Present Illness Consult details Consult date: 05/02/20 Reason for consult: other (renal failure) Requesting physician: Ti Alcantara MD Narrative: Pt is a 80 y/o F c multiple med issues including HTN, CKD presenting to hospital c dizziness, syncopal episode. Workup has revealed worsening renal failure. Surgery now consulted for possible dialysis access. Review of Systems Constitutional: Constitutional: Denies anorexia, Reports body ache(s), Denies chills, Reports fatigue, Denies fever(s), Denies frequent falls, Reports lethargy, Reports poor appetite, Reports weakness, Denies weight gain and Denies weight loss Eyes: Eyes: Reports no additional eye complaints ENT: Reports system reviewed and no additional complaints, except as documented Cardiovascular: Cardiovascular: Reports chest pain, Denies chest pain at rest, Reports chest pain with activity, Reports syncope, Reports edema, Reports dyspnea and Reports dyspnea on exertion Respiratory: Respiratory: Reports dyspnea on exertion Gastrointestinal: Gastrointestinal: Reports no additional gastrointestinal complaints Genitourinary: Genitourinary: Reports no additional female genitourinary complaints Musculoskeletal: Musculoskeletal: Reports no additional musculoskeletal complaints Integumentary/Breasts: Skin/Breast: Reports system reviewed and no additional complaints, except as docu Neurologic: Reports dizziness and Reports syncope Psychiatric: Psychiatric: Reports no additional psychiatric complaints Endocrine: Endocrine: Reports no additional endocrine complaints Hematologic/Lymphatic: Hematologic/Lymphatic: Reports no additional hematologic/lymphatic complaints Allergic/Immunologic: Allergic/Immunologic: Reports no additional allergic/immunologic complaints [facility] Past Medical History Medical History Anemia CKD (chronic kidney disease) Essential (primary) hypertension 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
[2020-05-02 08:36] LABS: Glucose Point of Care 98 (65-105)
[2020-05-02] MEDS: CHOLECALCIFEROL 1,000 UNITS TABLET 2000 UNITS PO (08:39)
[2020-05-02] MEDS: PANTOPRAZOLE 40 MG TABLET PO ×2 (08:39→17:33)
[2020-05-02] MEDS: amLODIPine BESYLATE 5 MG TABLET 10 MG PO (08:39)
[2020-05-02] MEDS: carvediloL 25 MG TABLET PO ×2 (08:39→21:38)
[2020-05-02] MEDS: ATORVASTATIN 20 MG TABLET PO (08:39)
[2020-05-02] MEDS: hydrALAZINE HCL 50 MG TABLET PO ×2 (08:39→21:39)
[2020-05-02] MEDS: HEPARIN SODIUM 5,000 UNITS/ML VIAL 5000 UNITS SUB-Q ×2 (08:39→21:39)
--- NOTE | 2020-05-02 10:25 | PM.PNNEP ---
Progress Note: A&P Assessment and Plan (1) CKD (chronic kidney disease) stage 4, GFR 15-29 ml/min: Code(s): N18.4 - Chronic kidney disease, stage 4 (severe) Status: Acute Assessment and Plan: Lilian has chronic kidney disease. This could be from her diabetes and hypertension. Evaluation for other causes is underway. It looks like there may have been an acute component. Perhaps she was a little dehydrated. She received fluids yesterday and her creatinine has improved. Will continue fluids today and recheck a creatinine tomorrow. (2) Malignant hypertension: Code(s): I10 - Essential (primary) hypertension Status: Acute Assessment and Plan: Her blood pressure is doing very well. Continue the same medications for this. (3) Dizziness: Code(s): R42 - Dizziness and giddiness Status: Acute Assessment and Plan: The dizziness might be related to her blood pressure. CT scan was negative. This has improved. (4) Anemia: Code(s): D64.9 - Anemia, unspecified Status: Acute Assessment and Plan: Hemoglobin is 8.1. giving venofer. started epo (5) Type II diabetes mellitus with renal manifestations: Qualifiers: Diabetes mellitus metal roofer insulin use: without assisted use Diabetes mellitus complication detail: with chronic kidney disease Chronic kidney disease stage: stage 4 (severe) Qualified Code(s): E11.22 - Type 2 diabetes mellitus with diabetic chronic kidney disease; N18.4 - Chronic kidney disease, stage 4 (severe) Code(s): E11.29 - Type 2 diabetes mellitus with other diabetic kidney complication Status: Chronic Assessment and Plan: On Accu-Cheks and sliding-scale insulin (6) Mixed hyperlipidemia: Code(s): E78.2 - Mixed hyperlipidemia Status: Acute Assessment and Plan: On atorvastatin (7) Vitamin D deficiency: Code(s): E55.9 - Vitamin D deficiency, unspecified Status: Acute Assessment and Plan: Vitamin-D is low. On supplement. Subjective Date/time seen: 05/02/20 10:25 Interval history: Lilian is feeling better today. She does not have any nausea. No dizziness. She received fluid overnight. She is not short of breath. Exam Narrative: Exam Narrative: WDWN in NAD skin no rash or subcu nodules head ncat lungs clear Bilaterally cor reg no rub or gallop abd BS+ nontender and soft ext no edema or cyanosis Objective Data Vital Signs Vital Signs: Vital Signs - 24 hr 05/01/20 12:00 05/01/20 14:00 05/01/20 16:00 Temperature 36.4 C L 35.9 C L Pulse Rate 71 54 L 58 L Respiratory Rate 18 18 Blood Pressure 186/69 H 154/46 H Pulse Oximetry 100 99 05/01/20 18:00 05/01/20 19:53 05/01/20 20:00 Temperature 36.0 C L Pulse Rate 61 58 L 56 L Respiratory Rate 18 Blood Pressure 154/45 H 154/45 H Pulse Oximetry 97 05/01/20 20:24 05/01/20 20:26 05/01/20 21:22 Temperature Pulse Rate 60 Respiratory Rate Blood Pressure 105/84 172/54 H Pulse Oximetry 05/01/20 22:00 05/02/20 00:00 05/02/20 02:00 Temperature 36.0 C L Pulse Rate 52 L 51 L 53 L Respiratory Rate Blood Pressure 137/70 Pulse Oximetry 100 05/02/20 04:00 05/02/20 06:00 05/02/20 08:00 Temperature 35.9 C L 36.2 C L Pulse Rate 54 L 53 L 66 Respiratory Rate 20 20 Blood Pressure 168/41 H 139/67 Pulse Oximetry 100 100 Intake/Output Intake/Output: Intake & Output 04/29/20 04/30/20 05/01/20 05/02/20 23:59 23:59 23:59 23:59 Intake Total 960 1840 1860 1720 Output Total 1000 1600 2150 1400 Balance -40 240 -290 320 Meds/Results Medications: Active Medications Generic Name Dose Route Start Last Admin Trade Name Freq PRN Reason Stop Dose Admin Acetaminophen 650 mg 04/28/20 14:19 04/29/20 08:51 Acetaminophen 325 Mg Tablet PO 650 mg Q4H PRN Administration Mild Pain (1-3) or Fever Hydrocodone Ami
[2020-05-02 12:14] LABS: Glucose Point of Care 241 (65-105)
[2020-05-02] MEDS: INSULIN ASPART (*BKC) 100 UNITS/ML SUB-Q (12:45)
[2020-05-02] MEDS: EPOETIN ALFA-EPBX 10,000 UNITS/ML VIAL 10000 UNITS SUB-Q (12:45)
[2020-05-02 16:51] LABS: Glucose Point of Care 116 (65-105)
--- NOTE | 2020-05-02 16:57 | PM.IMPN ---
Progress Note: A&P Assessment and Plan (1) Chest pain: Code(s): R07.9 - Chest pain, unspecified Status: Acute Assessment and Plan: Patient with chest pain the evening on 04/29 but no recurrence. Trop negative. EKG showing borderline T wave changes in the high lateral leads. No significant dysrhythmias on telemetry. Continue to monitor. (2) Anemia: Code(s): D64.9 - Anemia, unspecified Status: Acute Assessment and Plan: Hemoglobin 9.5 on admission. Iron and TIBC levels normal with a slightly low saturation of 18%. Ferritin normal at 130. Hemoglobin dropped to 7.6 yesterday but stable. IV iron and Epogen started. Continue to monitor H&H. Transfuse as needed. (3) Dizziness: Code(s): R42 - Dizziness and giddiness Status: Acute Assessment and Plan: The patient had a similar episode in the past. CT scan of the brain was negative. Echo with bubble showing EF 55% with diastolic dysfunction and no shunt. Brain MRI showing no acute findings. Carotid doppler showing Rt carotid 50-69% stenosis with left <50% stenosis. Other xrays negative for fracture. Not orthostatic. Suspect her symptoms related to severely elevated BP. Hypoglycemia was considered as well and her glipizide was stopped. However, she is still having these symptoms. Possibly related to uremia? Continue PT and OT. Plan for home with home health at time of discharge. (4) Malignant hypertension: Code(s): I10 - Essential (primary) hypertension Status: Acute Assessment and Plan: BP markedly elevated on admission at 232/79. Patient's blood pressure was reviewed on 05/02. Medications resumed and blood pressure much better controlled. Will continue current medications with Coreg, amlodipine, and hydralazine. Cozaar stopped due to worsening renal function. (5) CORY (acute kidney injury): Code(s): N17.9 - Acute kidney failure, unspecified Status: Acute Assessment and Plan: Cr4.1 on admission but climbing to 4.8 yesterday. Renal ultrasound showing medical renal disease. Lasix and Cozaar on hold. Urine Prot/Cr ration 5.16 in March. IV fluids started. patient feels better. Cr 4.4 today and BUN still high at 84. General Surgery consulted for PermaCath placement. (6) CKD (chronic kidney disease): Qualifiers: Chronic kidney disease stage: stage 4 (severe) Qualified Code(s): N18.4 - Chronic kidney disease, stage 4 (severe) Code(s): N18.9 - Chronic kidney disease, unspecified Status: Chronic Assessment and Plan: Kidney disease appears to be worsening. In 2019, Cr running mostly in the 2 range but 3.9 in March 2020 with severe proteinuria. As above. (7) Obstructive sleep apnea: Code(s): G47.33 - Obstructive sleep apnea (adult) (pediatric) Status: Chronic Assessment and Plan: She denies that she has LALA. Apnea link normal. Monitor. (8) Mixed hyperlipidemia: Code(s): E78.2 - Mixed hyperlipidemia Status: Acute Assessment and Plan: LFTs okay. Continue Lipitor. 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 The patient's blood glucose was reviewed on 05/02 Glucose remains well controlled. Continue AccuCheks covering with sliding scale. Hypoglycemia protocol available as needed. Glipizide stopped since could be causing hypoglycemia. (10) Hypothyroidism, unspecified: Goran
[2020-05-02] MEDS: IRON SUCROSE COMPLEX 200 MG in SODIUM CHLORIDE 0.9% IV 50 ML 50 MG IVPB (17:29)
[2020-05-02 21:12] LABS: Glucose Point of Care 149 (65-105)
[2020-05-02] MEDS: LATANOPROST 0.005% OP SOLN 2.5 ML BTL 1 DROP EACH EYE (21:40)
--- NOTE | 2020-05-02 23:39 | PC.NURSE ---
This patient, Lilian Mandel, was transferred to [[id number] ] on 05/02/20 at 2330. Personal belongings sent with patient. Report given to [ ]. Appropriate documentation sent with patient.
[2020-05-03] VITALS (7 sets, daily range): BP systolic 107–148; BP diastolic 40–81; PULSE 52–60; RESP 18–20; TEMP 36.2–36.7; O2SAT 98–100
[2020-05-03] MEDS: LEVOTHYROXINE SODIUM 50 MCG TABLET PO (05:39)
[2020-05-03 06:01] LABS: Hematocrit 24.4 % (37.0-47.0); Hemoglobin 7.4 g/dL (12.0-15.0); Mean Corpuscular HGB Conc 30.3 g/dl (32-36); Mean Corpuscular Hemoglobin 29.8 pg (26-34); Mean Corpuscular Volume 98.4 fl (80-100); Mean Platelet Volume 10.3 fl (7.4-10.4); Platelet Count Result 270 k/mm3 (150-375); Red Blood Count 2.48 M/mm3 (4.2-5.4); White Blood Count 6.5 K/mm3 (4.5-10.0)
[2020-05-03 06:07] LABS: Albumin Level 3.2 g/dL (3.5-5.1); Anion Gap 8 mmol/L (8-16); Blood Urea Nitrogen 77 mg/dL (7-17); Calcium 8.4 mg/dL (8.4-10.2); Carbon Dioxide 22 mmol/L (22-30); Chloride 110 mmol/L (98-107); Estimated CRCL calculation 12 ml/min; Estimated Glomerular Filt Rate 12; Glucose 134 mg/dL (65-105); Potassium 4.1 mmol/L (3.4-5.0); Sodium 140 mmol/L (137-145)
[2020-05-03] MEDS: SODIUM CHLORIDE 0.9% IV 1,000 ML 70 ML IV CONT (08:00)
[2020-05-03] MEDS: carvediloL 25 MG TABLET PO (08:02)
[2020-05-03] MEDS: amLODIPine BESYLATE 5 MG TABLET 10 MG PO (08:02)
[2020-05-03] MEDS: ATORVASTATIN 20 MG TABLET PO (08:02)
[2020-05-03] MEDS: CHOLECALCIFEROL 1,000 UNITS TABLET 2000 UNITS PO (08:03)
[2020-05-03] MEDS: hydrALAZINE HCL 50 MG TABLET PO (08:03)
[2020-05-03] MEDS: HEPARIN SODIUM 5,000 UNITS/ML VIAL 5000 UNITS SUB-Q (08:03)
[2020-05-03] MEDS: PANTOPRAZOLE 40 MG TABLET PO (08:03)
[2020-05-03 10:01] LABS: Glucose Point of Care 116 (65-105)
--- NOTE | 2020-05-03 10:33 | PM.PNNEP ---
Progress Note: A&P Assessment and Plan (1) CKD (chronic kidney disease) stage 4, GFR 15-29 ml/min: Code(s): N18.4 - Chronic kidney disease, stage 4 (severe) Status: Acute Assessment and Plan: Lilian has chronic kidney disease. This could be from her diabetes and hypertension. Evaluation for other causes is underway. Creatinine improved a little bit more with the fluids. She is now eating better. Will stop the fluids. (2) Malignant hypertension: Code(s): I10 - Essential (primary) hypertension Status: Acute Assessment and Plan: Her blood pressure is doing very well. Goal systolic is around 140-160. Continue the same medications for this. (3) Dizziness: Code(s): R42 - Dizziness and giddiness Status: Acute Assessment and Plan: The dizziness might be related to her blood pressure. CT scan was negative. This has improved. (4) Anemia: Code(s): D64.9 - Anemia, unspecified Status: Acute Assessment and Plan: Hemoglobin is 8.1. giving venofer. started epo (5) Type II diabetes mellitus with renal manifestations: Qualifiers: Diabetes mellitus supervisor intermediates insulin use: without care home use Diabetes mellitus complication detail: with chronic kidney disease Chronic kidney disease stage: stage 4 (severe) Qualified Code(s): E11.22 - Type 2 diabetes mellitus with diabetic chronic kidney disease; N18.4 - Chronic kidney disease, stage 4 (severe) Code(s): E11.29 - Type 2 diabetes mellitus with other diabetic kidney complication Status: Chronic Assessment and Plan: On Accu-Cheks and sliding-scale insulin (6) Mixed hyperlipidemia: Code(s): E78.2 - Mixed hyperlipidemia Status: Acute Assessment and Plan: On atorvastatin (7) Vitamin D deficiency: Code(s): E55.9 - Vitamin D deficiency, unspecified Status: Acute Assessment and Plan: Vitamin-D is low. On supplement. Subjective Date/time seen: 05/03/20 10:33 Interval history: Lilian is feeling pretty well. Physical therapy is working with her. She has been walking in the halls. She does not have any nausea. No dizziness. She received more fluid overnight. She is not short of breath. She is eating well. Exam Narrative: Exam Narrative: WDWN in NAD skin no rash head ncat lungs clear bilaterally cor reg no rub or gallop abd BS+ nontender ext no edema Objective Data Vital Signs Vital Signs: Vital Signs - 24 hr 05/02/20 10:48 05/02/20 12:00 05/02/20 14:00 Temperature 36.3 C L Pulse Rate 64 51 L 56 L Respiratory Rate 18 Blood Pressure 140/48 L 141/46 H Pulse Oximetry 99 05/02/20 16:00 05/02/20 18:00 05/02/20 20:00 Temperature 36.4 C L 36.2 C L Pulse Rate 56 L 57 L 53 L Respiratory Rate 18 18 Blood Pressure 134/63 157/56 H Pulse Oximetry 99 93 05/02/20 21:38 05/02/20 22:58 05/03/20 00:00 Temperature 36.6 C Pulse Rate 57 L 63 56 L Respiratory Rate 20 Blood Pressure 113/40 L Pulse Oximetry 98 05/03/20 04:00 05/03/20 04:14 05/03/20 08:02 Temperature 36.2 C L Pulse Rate 56 L 52 L 57 L Respiratory Rate 20 Blood Pressure 148/81 H Pulse Oximetry 100 Intake/Output Intake/Output: Intake & Output 04/30/20 05/01/20 05/02/20 05/03/20 23:59 23:59 23:59 23:59 Intake Total 1840 1860 3660 1000 Output Total 1600 2150 2150 100 Balance 240 -290 1510 900 Meds/Results Medications: Active Medications Generic Name Dose Route Start Last Admin Trade Name Freq PRN Reason Stop Dose Admin Acetaminophen 650 mg 04/28/20 14:19 04/29/20 08:51 Acetaminophen 325 Mg Tablet PO 650 mg Q4H PRN Administration Mild Pain (1-3) or Fever Hydrocodone Bitart/Acetaminophen 1 tab 04/28/20 14:19 04/30/20 20:24 Hydrocodone/Acetaminophen (*Crx) 5-325 Mg Tablet PO 1 tab Q4H PRN Administration Pain Rated 4-6 Amlodipine Besylate
[2020-05-03 12:04] LABS: Glucose Point of Care 157 (65-105)
--- NOTE | 2020-05-03 13:48 | WPDNEUROPN ---
Progress Note: A&P Additional Plan is stable treatment as such we might consider Plavix 75 mg daily because of the carotid study if okay with the Nephrology Review of Systems Review of Systems: All systems reviewed & are unremarkable except as noted in HPI and below Exam Const: General: cooperative, healthy appearing, comfortable and no acute distress Nutritional Appearance: overweight Limitations: no limitations HENMT: Ears: hearing grossly normal bilaterally General nose exam: Normal external nose present Mouth: Yes Normal oral and palatal mucosa present Eyes: General: appearance normal, both eyes and all related structures Neck: Neck: full ROM Resp: Effort & Inspection: normal respiratory effort Auscultation: clear to auscultation bilaterally Cardio: Jugular venous distension: no JVD Rate: regular rate Rhythm: regular rhythm GI: Auscultation: normal bowel sounds Skin: General skin exam: no rashes or lesions noted Neuro: General: patient oriented x3 Cranial nerves: Yes CN's II-XII intact bilaterally Cognition (Neuro): normal cognition Gait exam (Neuro): Normal gait present Motor exam (neuro): 5/5 motor strength present throughout Deep tendon reflexes (DTR's): Right triceps reflex intensity grade: 1+, Left triceps reflex intensity grade: 1+, Rt Biceps (C5, C6): 1+, Left biceps reflex intensity grade: 1+, Right brachioradialis reflex intensity grade: 1+, Left brachioradialis reflex intensity grade: 1+, Right patellar reflex intensity grade: 1+ and Left patellar reflex intensity grade: 1+ Plantar Reflex Responses: downgoing: right, left and bilateral Coordination: [id number] test normal Objective Data Vital Signs Vital Signs: Vital Signs - 24 hr 05/02/20 14:00 05/02/20 16:00 05/02/20 18:00 Temperature 36.4 C L Pulse Rate 56 L 56 L 57 L Respiratory Rate 18 Blood Pressure 134/63 Pulse Oximetry 99 05/02/20 20:00 05/02/20 21:38 05/02/20 22:58 Temperature 36.2 C L Pulse Rate 53 L 57 L 63 Respiratory Rate 18 Blood Pressure 157/56 H Pulse Oximetry 93 05/03/20 00:00 05/03/20 04:00 05/03/20 04:14 Temperature 36.6 C 36.2 C L Pulse Rate 56 L 56 L 52 L Respiratory Rate 20 20 Blood Pressure 113/40 L 148/81 H Pulse Oximetry 98 100 05/03/20 08:00 05/03/20 08:02 05/03/20 12:00 Temperature Pulse Rate 57 L 57 L 57 L Respiratory Rate Blood Pressure Pulse Oximetry Intake/Output Intake/Output: Intake & Output 04/30/20 05/01/20 05/02/20 05/03/20 23:59 23:59 23:59 23:59 Intake Total 1840 1860 3660 1360 Output Total 1600 2150 2150 100 Balance 240 -290 1510 1260 Meds/Results Medications: Active Medications Generic Name Dose Route Start Last Admin Trade Name Freq PRN Reason Stop Dose Admin Acetaminophen 650 mg 04/28/20 14:19 04/29/20 08:51 Acetaminophen 325 Mg Tablet PO 650 mg Q4H PRN Administration Mild Pain (1-3) or Fever Hydrocodone Bitart/Acetaminophen 1 tab 04/28/20 14:19 04/30/20 20:24 Hydrocodone/Acetaminophen (*Crx) 5-325 Mg Tablet PO 1 tab Q4H PRN Administration Pain Rated 4-6 Amlodipine Besylate 10 mg 05/01/20 09:00 05/03/20 08:02 Amlodipine Besylate 5 Mg Tablet PO 10 mg QAM EVAN Administration Atorvastatin Calcium 20 mg 04/30/20 09:00 05/03/20 08:02 Atorvastatin 20 Mg Tablet PO 20 mg DAILY EVAN Administration Carvedilol 25 mg 04/29/20 09:00 05/03/20 08:02 Carvedilol 25 Mg Tablet PO 25 mg Q12HR EVAN Administration Dextrose 12.5 gm 04/28/20 19:44 Dextrose 50% 25 Gm/50 Ml Syringe IV PUSH PRN PRN Hypoglycemia Protocol Docusate Sodium 100 mg 05/03/20 12:40 Docusate Sodium 100 Mg Capsule PO Q12HR EVAN Epoetin Manish-epbx 10,000 units 04/30/20 14:00 05/02/20 12:45 Epoetin Manish-Epbx 10,000 Units/Ml Vial SUB-Q 10,000 units [id number] EVAN Administration Furosemide 40 mg 04/29/20 09:00 04/29/20 08:47 Furosemide 40 Mg Tablet PO 40 mg
--- NOTE | 2020-05-03 13:54 | PM.DS ---
DS: Admitting Diagnosis Admitting Diagnosis Admitting Diagnosis: Dizzy, fall DS: Discharge Diagnosis Discharge Diagnosis (1) Chest pain: Code(s): R07.9 - Chest pain, unspecified Status: Acute Assessment and Plan: Patient with chest pain the evening on 04/29. Trop negative. EKG showing borderline T wave changes in the high lateral leads. No significant dysrhythmias on telemetry at the time. Atypical CP occurring at rest with sharp quality lasting a few hours. No recurrence of the CP. (2) Anemia: Code(s): D64.9 - Anemia, unspecified Status: Acute Assessment and Plan: Hemoglobin 9.5 on admission. Iron and TIBC levels normal with a slightly low saturation of 18%. Ferritin normal at 130. Hemoglobin dropped to 7.6 but has since remained stable. Patient treated with IV iron and Epogen. (3) Dizziness: Code(s): R42 - Dizziness and giddiness Status: Acute Assessment and Plan: The patient had a similar episode in the past. CT scan of the brain was negative. Echo with bubble showing EF 55% with diastolic dysfunction and no shunt. Brain MRI showing no acute findings. Carotid doppler showing Rt carotid 50-69% stenosis with left <50% stenosis. Other xrays negative for fracture. Not orthostatic. Suspect her symptoms related to severely elevated BP. Hypoglycemia was considered as well and her glipizide was stopped. Possibly related to CKD? She did have a brief pause of 3.4sec at 130am while sleeping but no other events. She has been having dizziness while here without corresponding findings on tele. Suspect not related to her symptoms. Discussed with Cardiology who felt no further workup required; discussed with patient as well and discharge instructions reviewed with her. She worked with PT and OT. Plan for home with home health. (4) Malignant hypertension: Code(s): I10 - Essential (primary) hypertension Status: Acute Assessment and Plan: BP markedly elevated on admission at 232/79. Patient's blood pressure was monitored closely. Medications resumed and blood pressure much better controlled. Will continue current medications with Coreg, amlodipine, and hydralazine. Cozaar stopped due to worsening renal function. (5) CORY (acute kidney injury): Code(s): N17.9 - Acute kidney failure, unspecified Status: Acute Assessment and Plan: Cr4.1 on admission but climbing to 4.8. Renal ultrasound showing medical renal disease. Lasix and Cozaar on hold. Urine Prot/Cr ration 5.16 in March. IV fluids started. Patient feels better and Cr 4.2 today. Plan for outpatient renal biopsy. (6) CKD (chronic kidney disease): Qualifiers: Chronic kidney disease stage: stage 4 (severe) Qualified Code(s): N18.4 - Chronic kidney disease, stage 4 (severe) Code(s): N18.9 - Chronic kidney disease, unspecified Status: Chronic Assessment and Plan: Kidney disease appears to be worsening. In 2019, Cr running mostly in the 2 range but 3.9 in March 2020 with severe proteinuria. As above. (7) Obstructive sleep apnea: Code(s): G47.33 - Obstructive sleep apnea (adult) (pediatric) Status: Chronic Assessment and Plan: She denies that she has LALA. Apnea link showing AHI 5.9 and RI 2.6. (8) Mixed hyperlipidemia: Code(s): E78.2 - Mixed hyperlipidemia Status: Acute Assessment and Plan: LFTs okay. We contiued Lipitor. 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
[2020-05-03] MEDS: DOCUSATE SODIUM 100 MG CAPSULE PO (14:26)
--- NOTE | 2020-05-09 10:41 | PC.NURSE ---
urine IF no abn bands. Dr. Alcantara aware.
== END 2020-05-03 16:10 | disposition home health service (06) | DRG 683 ==
LOC: ANHED 14:23 → ANHIMU 14:56 → ANH2MED 05-03 14:19 → ANHIMU 05-06 16:09
PROVIDERS: Family Medicine; Internal Medicine Nephrology; Nurse Practitioner; Admitting Provider Family Medicine; Emergency Provider Emergency Medicine; PCP Internal Medicine; Visit Provider Internal Medicine
DX: I12.9 Hypertensive chronic kidney disease with stage 1 through stage 4 chronic kidney disease, or unspecified chronic kidney disease (principal); N17.9 Acute kidney failure, unspecified; N18.4 Chronic kidney disease, stage 4 (severe); R07.9 Chest pain, unspecified; R42 Dizziness and giddiness; E11.22 Type 2 diabetes mellitus with diabetic chronic kidney disease; D64.9 Anemia, unspecified; E03.9 Hypothyroidism, unspecified; G47.33 Obstructive sleep apnea (adult) (pediatric); E78.2 Mixed hyperlipidemia; E55.9 Vitamin D deficiency, unspecified; I65.29 Occlusion and stenosis of unspecified carotid artery; Z96.641 Presence of right artificial hip joint; Z96.653 Presence of artificial knee joint, bilateral; Z87.891 Personal history of nicotine dependence
CPT/HCPCS: 36415; 51701; 70450; 70551; 71046; 73030; 73080; 73090; 73521; 73560; 76775; 80048; 80053; 80069; 81001; 82306; 82607; 82728; 82746; 82948; 83036; 83540; 83550; 83605; 83615; 83735; 84443; 84484; 85025; 85027; 85046; 85610; 85730; 86335; 87086; 87088; 93005; 93306; 93880; 94762; 96365; 96374; 96375; 96376; 97110; 97116; 97161; 97165; 97530; 99285; A9270; G0378; J0360; J1644; J1756; J1815; J2270; J2405; J7030; J7040; Q5106

== ENCOUNTER 2020-05-08 15:25 | Inpatient (IN) | payer MEDICARE, OTHER, SELFPAY ==
[2020-05-08] VITALS (31 sets, daily range): BP systolic 114–204; BP diastolic 61–95; PULSE 64–76; RESP 13–23; TEMP 36.6; O2SAT 93–100; BMI 38.7
--- NOTE | ~2020-05-08 | US_ITS ---
EXAMINATION: US venous doppler [facility] DATE: 05/08/2020 17:40 INDICATION: Lower limb swelling. TECHNIQUE: Grayscale ultrasound images without and with compression and Doppler ultrasound images of the bilateral lower extremity veins were obtained. COMPARISON: Ultrasound 12/22/2004 FINDINGS: The visualized portions of right common femoral vein, profunda (deep) femoral vein, femoral vein, pop liteal vein, peroneal veins, posterior tibial veins, and greater saphenous vein outflow are patent. The visualized portions of left common femoral vein, profunda femoral vein, femoral vein, popliteal v ein, peroneal veins, posterior tibial veins, and greater saphenous vein outflow are patent. IMPRESSION: 1. No deep venous thrombosis. Reviewed, dictated and finalized at location A. ER OUT
--- NOTE | ~2020-05-08 | XR_ITS ---
XR chest 1V portable DATE: 05/10/2020 09:21 INDICATION: Pulmonary edema. Shortness of breath. TECHNIQUE: Portable AP chest on May 10, 2020 at 0923 hours COMPARISON: May 08, 2020 portable AP chest at 0502 FINDINGS: Heart size appears within normal limits. Is aortic arch calcification. There is pulmonary vascular congestion and redistribution. There are bilateral primarily central and right lower lung infiltrates which may be due to pulmonary edema. Pneumonia is not excluded. Infiltra aniket appear mildly improved compared to 07/06/2020. No apparent pleural effusion. No pneumothorax. Bilateral rotator cuff atrophy, particularly on the right. Diffuse osteopenia. Degenerative spurring of the thoracic spine. IMPRESSION: Mild improvement of pulmonary infiltrates since May 08, 2020 Reviewed, dictated and finalized at location A. R COM SERVICER
--- NOTE | ~2020-05-08 | CT_ITS ---
EXAMINATION: CT brain wo con DATE: 05/08/2020 18:40 INDICATION: Headache. Dizziness. TECHNIQUE: Computed tomography (CT) of the head was performed without intravenous contrast. The mA wa s adjusted according to patient size. Iterative reconstruction technique was employed. The dose-lengt h product was 605.33 mGy-cm. COMPARISON: Head CT 04/28/2020 FINDINGS: There is no intracranial hemorrhage, acute infarction, or abnormal intracranial mass lesion . The ventricles are normal in size. There is mild mucosal thickening in the ethmoid sinuses. There i s a right otomastoid effusion. IMPRESSION: 1. Normal brain. 2. Right otomastoid effusion again seen. Reviewed, dictated and finalized at location A. CAL PRACTICE ADMINISTRATOR
--- NOTE | ~2020-05-08 | XR_ITS ---
XR chest 1V portable DATE: 05/08/2020 17:02 INDICATION: Shortness of breath. History of hypertension. TECHNIQUE: Portable AP chest on May 08, 2020 at 1702 hours COMPARISON: April 28, 2020 AP and lateral chest FINDINGS: There is borderline heart size. There is pulmonary vascular congestion and redistribution. There is prominence of the minor fissure indicating subpleural edema. There are bilateral right great er than left primarily central pulmonary infiltrate as well as right lower lung infiltrate. The bilat eral infiltrates may be due to pulmonary edema. Pneumonia is not excluded. There is pulmonary arterial calcification and mild aortic unfolding. Bilateral rotator cuff atrophy. Diffuse osteopenia. IMPRESSION: Pulmonary vascular congestion, bilateral pulmonary infiltrates, right greater than left, prominence of minor fissure. The findings suggest pulmonary edema. Pneumonia is not excluded Reviewed, dictated and finalized at location A. AL MARKETING MANAGER IMPRESSION: Pulmonary vascular congestion, bilateral pulmonary infiltrates, rig ht greater than left, prominence of minor fissure. The findings suggest pulmona ry edema. Pneumonia is not excluded
--- NOTE | 2020-05-08 15:29 | ECG_ITS ---
Measurements Intervals [place] Rate: 67 P: 68 [place]: 143 QRS: -18 QRSD: 106 T: 124 QT: 416 QTc: 440 Interpretive Statements SINUS RHYTHM VENTRICULAR PREMATURE COMPLEXES POSSIBLE LEFT ATRIAL ENLARGEMENT BASELINE ARTIFACT- I, II, III, AVR, AVL, AVF, V1, V3, V5-V6 BORDERLINE ECG Electronically Signed On 05-08-2020 15:50:58 SCRATCH POLISHER by Ashutosh Jones D.O.
--- NOTE | 2020-05-08 16:42 | ED.EPISTAXIS ---
HPI - Epistaxis General Chief complaint: Epistaxis Stated complaint: nosebleed, HTN, sinus issues Time Seen by Provider: 05/08/20 15:57 Source: patient Mode of arrival: EMS Limitations: no limitations History of Present Illness HPI Narrative: This is a 80 year old female with history of hypertension, carotid artery stenosis, chronic kidney disease who presents via EMS for evaluation of hypertension. Patient's daughter states patient woke up feeling good this morning. Home health was at the house and they noticed that patient's BP was elevated over 200 systolic. Patient complained of dizziness so she called 911. Patient was admitted to [facility] 10 days ago for evaluation hypertension, dizziness and head injury. She was admitted to the hospital 6 days and she was discharged 4 days ago. She had an unremarkable brain MRI and CT brain. She was found to have acute kidney injury so her diuretic was held. Her blood pressure medications were adjusted. Her amlodipine was increased from 5 mg to 10 mg. She is taking hydralazine 50 mg twice a day. She reports she has taken all her medications as prescribed. She is complaining of dry cough, chest congestion and nasal congestion for 5 days. She also reports she noticed some blood when she bloods her nose today. She reports chest tightness that has been present for 5 days. Related Data Home Medications Medication Instructions Recorded Confirmed aspirin 325 mg tablet 325 mg PO DAILY 01/30/19 05/08/20 cholecalciferol (vitamin D3) 50 mcg PO DAILY 07/05/19 05/08/20 [Vitamin D3] Lumigan 1 drp EACH EYE QPM 04/28/20 05/08/20 levothyroxine [Synthroid] 50 mcg PO 0600 04/28/20 05/08/20 omeprazole 40 mg PO DAILY 04/28/20 05/08/20 hydralazine 25 mg tablet 50 mg PO Q6H tablet 05/08/20 05/08/20 Allergies Allergy/AdvReac Type Severity Reaction Status Date / Time benazepril Allergy Unknown Swelling Verified 04/28/20 10:49 of Lip/Tongue/Throat lisinopril Allergy Unknown Anaphylaxis Verified 04/28/20 10:49 Review of Systems Review of Systems: All systems reviewed & are unremarkable except as noted in HPI and below Constitutional: Constitutional: Denies chills and Denies fever(s) ENT: Reports sore throat Cardiovascular: Cardiovascular: Reports chest pain and Denies rapid heart rate Respiratory: Respiratory: Reports chest congestion, Reports cough and Reports dyspnea Gastrointestinal: Gastrointestinal: Denies abdominal pain, Reports bloating and Denies nausea Musculoskeletal: Musculoskeletal: Reports arthralgias Neurologic: Reports dizziness, Reports headache(s) and Denies focal weakness [facility] Past Medical History Medical History (Updated 05/09/20 @ 00:18 by Lucia Crabtree MD) Anemia Carotid artery disease CKD (chronic kidney disease) Congestive heart failure Essential (primary) hypertension 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or Type II diabetes mellitus with renal manifestations Surgical History Surgical History H/O cataract extraction History of bunionectomy of left great toe History of right hip replacement Presence of left artificial knee joint Presence of right artificial hip joint Presence of right artificial knee joint Family History Family History Mother Family history of diabetes mellitus in first degree relative Patient's mother is Acute myocardial infarction Diabetes mellitus Sibling Family history of sarcoidosis Family history of lupus erythematosus Father , age 49 [place] Acute myocardial infarction Other Cerebrovascular accident Family history of arthritis Hypertension Social History Social History (Reviewed 05/08/20 @
[2020-05-08 16:44] LABS: Basophils Absolute Auto 0.1 K/mm3 (0.0-0.1); Basophils Percent Auto 0.6 % (0.2-1.2); Eosinophils Absolute Auto 0.2 K/mm3 (0-0.3); Eosinophils Percent Auto 3.1 % (0-4.4); Hematocrit 25.6 % (37.0-47.0); Hemoglobin 7.9 g/dL (12.0-15.0); Immature Granulocyte Absolute 0.03 K/mm3 (0.00-0.031); Immature Granulocyte Percent A 0.4 % (0-0.5); Lymphocytes Percent Auto 10.2 % (18.3-44.2); Mean Corpuscular HGB Conc 30.9 g/dl (32-36); Mean Corpuscular Hemoglobin 29.6 pg (26-34); Mean Corpuscular Volume 95.9 fl (80-100); Mean Platelet Volume 9.6 fl (7.4-10.4); Monocytes Absolute Auto 0.7 K/mm3 (0.1-0.6); Monocytes Percent Auto 8.8 % (2.6-8.5); Neutrophils Percent Auto 76.9 % (45.5-73.1); Platelet Count Result 291 k/mm3 (150-375); Red Blood Count 2.67 M/mm3 (4.2-5.4); Red Cell Distribution Width 13.9 % (11.5-14.5); White Blood Count 7.8 K/mm3 (4.5-10.0)
[2020-05-08 16:53] LABS: Alveolar/Arterial O2 Gradient 34.8 mmHg; Base Excess ABG -5.4 mEq/l (+/-2.0); Carboxyhemoglobin 0.5 % THb (0-2.0); Fractional Inspired Oxygen 21 %; HCO3 ABG 19.6 mEq/l (22.0-26.0); Methemoglobin ABG 0.1 %THb (0-1.5); Oxygen Content ABG 11.4 %vol (16.0-22.0); Oxygen Saturation ABG 93.8 % (95.0-100.0); Oxyhemoglobin 92.7 % THb (90.0-100.0); PCO2 ABG 36.3 mmHg (35.0-45.0); PO2 ABG 71.5 mmHg (80.0-100.0); Reduced Hemoglobin 6.7 %THb (0-5.0); Total Hemoglobin 8.7 g/dL (12.0-18.0); pH ABG 7.351 (7.350-7.450)
[2020-05-08 16:54] LABS: Device ROOM AIR; Modified Allen's Test Pass; Site Drawn RIGHT RADIAL
[2020-05-08 16:57] LABS: Prothrombin Time 14.1 Seconds (11.1-14.7)
[2020-05-08 16:58] LABS: Partial Thromboplastin Time 35.7 SECONDS (22.3-36.8)
[2020-05-08 16:59] LABS: Alanine Aminotransferase 18 U/L (4-35); Albumin Level 3.6 g/dL (3.5-5.1); Alkaline Phosphatase 72 U/L (38-126); Anion Gap 8 mmol/L (8-16); Aspartate Amino Transferase 27 U/L (14-36); Bilirubin,Total 0.2 mg/dL (0.2-1.3); Blood Urea Nitrogen 55 mg/dL (7-17); CRP 7.9 mg/dL (<1.0); Calcium 9.1 mg/dL (8.4-10.2); Carbon Dioxide 21 mmol/L (22-30); Chloride 108 mmol/L (98-107); Estimated CRCL calculation 13 ml/min; Estimated Glomerular Filt Rate 13; Glucose 240 mg/dL (65-105); Potassium 4.5 mmol/L (3.4-5.0); Sodium 137 mmol/L (137-145)
[2020-05-08 17:08] LABS: NT Pro B Type Natriuretic Pept 6260 PG/ML (5-100); Troponin I < 0.012 ng/mL (0.000-0.034)
--- NOTE | 2020-05-08 17:28 | PC.NURSE ---
Pt in ultrasound at this time.
--- NOTE | 2020-05-08 17:52 | PC.NURSE ---
EDJulia Crabtree informed that pt is still having pain in her head that was not relieved by iv ofirmev. No new orders at this time.
--- NOTE | 2020-05-08 18:03 | PC.NURSE ---
PASTOR Crabtree at bedside for pt update.
[2020-05-08] MEDS: NITROGLYCERIN OINTMENT 1 INCH DOSE TRANSDERM (18:15)
[2020-05-08] MEDS: hydrALAZINE HCL 20 MG/ML VIAL 10 MG IV PUSH ×2 (18:15→21:44)
--- NOTE | 2020-05-08 19:28 | PC.NURSE ---
Assumed care of pt. at this time. Report foster Godoy RN
[2020-05-08 20:22] LABS: Troponin I < 0.012 ng/mL (0.000-0.034)
--- NOTE | 2020-05-08 20:46 | PM.IMHP ---
H&P: HPI History of Present Illness Date/Time: 05/08/20 20:46 Chief Complaint: Dizziness and elevated blood pressure Narrative: Lilian Mandel is a 80 year old female who was discharged from this hospital on 05/03/2020. The patient did see the histology manager. Her kidney function has gotten worse. Her renal ultrasound shows that she has kidney disease. The patient was taken off of her Arb and her Lasix at that time. Patient was found have carotid artery disease and was started on Plavix at that time. The patient has home health services and lives home alone. Noticed that her blood pressure was elevated over 200 systolic. The patient complained of dizziness so she called 911. The patient had a full workup her last admission due to the complaints of dizziness. She had a unremarkable MRI and CT scan. She has no fever or chills. She complains of having swelling to her hands and her feet. She has been taking hydralazine twice a day for blood pressure. Today her H&H is stable. Her renal function is stable. As normal brain. Right although mastoid effusion again seen which was present on her last CT scan. Venous Dopplers today showed no deep vein thrombosis. IV Tylenol. She was started on nitro paste for her blood pressure and hydralazine as well. Patient is being admitted for observation on the date of service of 05/08/2019 Review of Systems Constitutional: Constitutional: Reports as per HPI and Reports no additional constitutional complaints Eyes: Eyes: Reports as per HPI and Reports no additional eye complaints ENT: Reports system reviewed and no additional complaints, except as documented and Reports Normal hearing present Cardiovascular: Cardiovascular: Reports no additional cardiovascular complaints Respiratory: Respiratory: Reports as per HPI and Reports no additional respiratory complaints Gastrointestinal: Gastrointestinal: Reports as per HPI and Reports no additional gastrointestinal complaints Genitourinary: Genitourinary: Reports no additional female genitourinary complaints Musculoskeletal: Musculoskeletal: Reports no additional musculoskeletal complaints Integumentary/Breasts: Skin/Breast: Reports system reviewed and no additional complaints, except as docu Neurologic: Reports system reviewed and no additional complaints, except as documented and Reports Normal hearing present Psychiatric: Psychiatric: Reports no additional psychiatric complaints and Reports as per HPI Hematologic/Lymphatic: Hematologic/Lymphatic: Reports no additional hematologic/lymphatic complaints Allergic/Immunologic: Allergic/Immunologic: Reports no additional allergic/immunologic complaints [facility] Past Medical History Medical History Anemia CKD (chronic kidney disease) Essential (primary) hypertension 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or Type II diabetes mellitus with renal manifestations Surgical History Surgical History H/O cataract extraction History of bunionectomy of left great toe History of right hip replacement Presence of left artificial knee joint Presence of right artificial hip joint Presence of right artificial knee joint Family History Family History Mother Family history of diabetes mellitus in first degree relative Patient's mother is Acute myocardial infarction Diabetes mellitus Sibling Family history of sarcoidosis Family history of lupus erythematosus Father , age 49 [place] Acute myocardial infarction Other Cerebrovascular accident Family history of arthritis Hypertension Social History Social History Social Hist
--- NOTE | 2020-05-08 22:09 | ADMGEN ---
This patient, Lilian Mandel, was admitted to IMU Room 231-01 at 2120. Patient/family oriented to hospital policies and general routines including ID bracelet, bed and alarms, visiting hours, pain management, procedures, bathroom and other care routines, personal items, smoking policy, room service/diet, and visiting hours. Information on how to activate the Rapid Response Team has been discussed. Patient/Family are encouraged to report perceived risks to care and to ask questions if they do not understand what they are told or what they should do.
[2020-05-08 22:21] LABS: Glucose Point of Care 157 (65-105)
[2020-05-08] MEDS: fentaNYL CITRATE INJ (*CRX) 100 MCG/2 ML VIAL 25 MCG IV PUSH (22:49)
[2020-05-09] VITALS (12 sets, daily range): BP systolic 154–200; BP diastolic 41–63; PULSE 53–74; RESP 16–18; TEMP 36.2–36.4; O2SAT 91–99
[2020-05-09] MEDS: LATANOPROST 0.005% OP SOLN 2.5 ML BTL 1 DROP EACH EYE ×2 (01:06→16:37)
[2020-05-09] MEDS: carvediloL 25 MG TABLET PO ×3 (01:06→20:27)
[2020-05-09] MEDS: LEVOTHYROXINE SODIUM 50 MCG TABLET PO (04:51)
[2020-05-09] MEDS: hydrALAZINE HCL 50 MG TABLET PO ×4 (04:51→23:26)
[2020-05-09 05:18] LABS: Basophils Percent Auto 0.5 % (0.2-1.2); Eosinophils Absolute Auto 0.3 K/mm3 (0-0.3); Eosinophils Percent Auto 4.3 % (0-4.4); Hematocrit 23.8 % (37.0-47.0); Hemoglobin 7.3 g/dL (12.0-15.0); Immature Granulocyte Absolute 0.03 K/mm3 (0.00-0.031); Immature Granulocyte Percent A 0.5 % (0-0.5); Lymphocytes Absolute Auto 0.91 K/mm3 (0.9-3.2); Lymphocytes Percent Auto 14.4 % (18.3-44.2); Mean Corpuscular HGB Conc 30.7 g/dl (32-36); Mean Corpuscular Hemoglobin 29.3 pg (26-34); Mean Corpuscular Volume 95.6 fl (80-100); Mean Platelet Volume 9.6 fl (7.4-10.4); Monocytes Absolute Auto 0.6 K/mm3 (0.1-0.6); Monocytes Percent Auto 9.4 % (2.6-8.5); Neutrophils Absolute Auto 4.5 K/mm3 (1.3-6.7); Neutrophils Percent Auto 70.9 % (45.5-73.1); Platelet Count Result 275 k/mm3 (150-375); Red Blood Count 2.49 M/mm3 (4.2-5.4); White Blood Count 6.3 K/mm3 (4.5-10.0)
[2020-05-09 05:33] LABS: Anion Gap 8 mmol/L (8-16); Blood Urea Nitrogen 51 mg/dL (7-17); Calcium 8.9 mg/dL (8.4-10.2); Carbon Dioxide 21 mmol/L (22-30); Chloride 112 mmol/L (98-107); Estimated CRCL calculation 13 ml/min; Estimated Glomerular Filt Rate 13; Glucose 157 mg/dL (65-105); Potassium 4.3 mmol/L (3.4-5.0); Sodium 141 mmol/L (137-145)
[2020-05-09 08:18] LABS: Glucose Point of Care 149 (65-105)
[2020-05-09] MEDS: amLODIPine BESYLATE 5 MG TABLET 10 MG PO (08:49)
[2020-05-09] MEDS: CHOLECALCIFEROL 1,000 UNITS TABLET 2000 UNITS PO (08:49)
[2020-05-09] MEDS: ATORVASTATIN 20 MG TABLET PO (08:49)
[2020-05-09] MEDS: PANTOPRAZOLE 40 MG TABLET PO ×2 (08:49→16:37)
[2020-05-09] MEDS: ASPIRIN 325 MG TABLET PO (08:50)
--- NOTE | 2020-05-09 09:11 | PM.CNNEP ---
Assessment and Plan Assessment and plan (1) CKD (chronic kidney disease) stage 4, GFR 15-29 ml/min: Code(s): N18.4 - Chronic kidney disease, stage 4 (severe) Status: Acute Assessment and Plan: creatinine about the same (if not better) from last hospitalization however, she may need/require a higher creatinine to keep her respiratory/volume status stable follow trend of creatinine with IV diuresis today (see #3) (2) Malignant hypertension: Code(s): I10 - Essential (primary) hypertension Status: Acute Assessment and Plan: not sure what precipited acute rise (unless it was her CHF exacerbation) BP was running in the 140 - 150s systolic range with her current medications (coreg, amlodipine, and hydralazine) follow trend with home meds and addition of IV diuretics we can titrate hydralazine if necessary (3) CHF exacerbation: Code(s): I50.9 - Heart failure, unspecified Status: Acute Assessment and Plan: will dose with IV bumex for 2 doses today to assess response it would seem she needs to be on diuretic therapy (held on last hospitalization and on discharge and now with evidence of pulmonary edema) (4) Anemia: Code(s): D64.9 - Anemia, unspecified Status: Chronic Assessment and Plan: due to CKD hold Epogen for now given issues with BP/HTN dosed with venofer on last hospitalization (5) Dizziness: Code(s): R42 - Dizziness and giddiness Status: Chronic Assessment and Plan: fairly extensive work-up and evaluation on last hospitalization follow symptoms with above interventions Will continue to follow. History of Present Illness Reason for Consult Consult date: 05/09/20 Reason for consult: chronic renal failure Chief Complaint Chief complaint: uncontrolled hypertension, pulmonary edema History of Present Illness Narrative: The patient is a 80-year-old female with a past medical history as outlined below who presented to [facility] Emergency room with complaints of high blood pressure and dizziness. The patient was just recently discharged from [facility] about a week ago. At that time, it was noted that her kidney function had deteriorated and her blood pressure was quite elevated as well and more importantly, she also had dizziness at that time as well. In effort to optimize her kidney function her medications were adjusted including discontinuation of her ARB as well as diuretics. Her kidney function improved to some degree by the time of discharge. She also had a fairly extensive workup for her dizziness with the only new finding was carotid artery disease and she was started on Plavix. Her blood pressure medications were adjusted and by time of discharge she was running in the 140s to 150 systolic with near resolution of the aforementioned dizziness. Home health was seen the patient and noted that her blood pressure was greater than 200 systolic. This finding as well as the fact that the dizziness seemed to return was concerning to the patient and she called 911 who transferred her to the emergency room for further evaluation. Evaluation in the emergency room confirmed her poorly controlled hypertension but also evidence of increased peripheral edema both in her hands and lower extremities. Routine blood test demonstrated relative stability in her kidney function in comparison to when she was here about a week ago. Her chest x-ray however showed evidence of pulmonary vascular congestion. Given the constellation of symptoms as noted above in conjunction with the a for mention ER testing, she was admitted the hospital for further evaluation/treatment of her poorly-controlled hypertension and mild fluid overload. Renal consultation was requested due to her known chronic kidney disease. the patient is known to me as I follow her in the office for her chronic kidney disease. The last time I sa
[2020-05-09] MEDS: BUMETANIDE INJ 1 MG/4 ML VIAL IV PUSH ×2 (09:34→16:36)
[2020-05-09 11:25] LABS: Troponin I < 0.012 ng/mL (0.000-0.034)
[2020-05-09] MEDS: INSULIN ASPART (*BKC) 100 UNITS/ML SUB-Q ×2 (12:26→16:35)
[2020-05-09 13:00] LABS: Glucose Point of Care 233 (65-105)
--- NOTE | 2020-05-09 14:05 | PM.IMPN ---
Progress Note: A&P Assessment and Plan (1) Congestive heart failure: Qualifiers: Heart failure type: diastolic Heart failure chronicity: acute on chronic Qualified Code(s): I50.33 - Acute on chronic diastolic (congestive) heart failure Code(s): I50.9 - Heart failure, unspecified Status: Chronic Assessment and Plan: Recent hospital admission last week was taken off her diuretics due to worsening renal function. CXR suggests pulmonary edema new from 04/28. Recent echocardiogram 04/29/20 shows mild pulmonary hypertension, severely increased LV thickness, grade I diastolic dysfunction, normal systolic function EF 55-60%. She is getting two doses of IV bumex today per nephrology, appreciate input. She is otherwise maintained on her home carvedilol. ARB was also stopped last admission due to renal function. Monitor I&Os, daily weights. (2) CKD (chronic kidney disease) stage 4, GFR 15-29 ml/min: Code(s): N18.4 - Chronic kidney disease, stage 4 (severe) Status: Acute Assessment and Plan: Appreciate nephrology recommendations. Difficult balance between her renal function and need for diuretics. Renal function has worsened in the last year but is overall stable since discharge last week. (3) Uncontrolled hypertension: Code(s): I10 - Essential (primary) hypertension Status: Chronic Assessment and Plan: Maintained on carvedilol and hydralazine. Appreciate nephrology input. BPs are variable today from systolics 200 to 150s. Monitor trend of BPs. (4) Carotid artery disease: Qualifiers: Carotid artery disease type: stenosis Laterality: right Qualified Code(s): I65.21 - Occlusion and stenosis of right carotid artery Code(s): I77.9 - Disorder of arteries and arterioles, unspecified Status: Acute Assessment and Plan: Noted on 04/29/20 - 50-69% stenosis in the right internal carotid artery, less than 50% stenosis in left internal carotid artery. Plavix considered on discharge last week, however she was potentially going to get an outpatient renal biopsy. (5) Hypothyroidism, unspecified: Qualifiers: Hypothyroidism type: acquired Qualified Code(s): E03.9 - Hypothyroidism, unspecified Code(s): E03.9 - Hypothyroidism, unspecified Status: Chronic Assessment and Plan: Continue with levothyroxine. (6) Anemia: Qualifiers: Anemia type: due to chronic kidney disease Chronic kidney disease stage: stage 4 (severe) Qualified Code(s): N18.4 - Chronic kidney disease, stage 4 (severe); D63.1 - Anemia in chronic kidney disease Code(s): D64.9 - Anemia, unspecified Status: Chronic Assessment and Plan: Chronic, stable since last discharge. Suspect related to CKD. No evidence of acute bleeding. Monitor CBC. (7) Person under investigation for COVID-19: Code(s): Z20.822 - Contact with and (suspected) exposure to COVID-19 Status: Acute Assessment and Plan: Given her cough and fatigue, she was swabbed for COVID-19 by PCR. Continue droplet isolation while awaiting results. Subjective Date/time seen: 05/09/20 1230 Interval history: Ms. Mandel is a 80yo F admitted for uncontrolled hypertension and pulmonary edema. She was recently admitted and her diuretics were stopped due to worsening renal failure. She describes some shortness of breath. Denies chest pain. Her main complaint to me is that she has had a cough for about 1 week and feels tired. She denies nausea, vomiting or abdominal pain. Review of Systems Review of Systems: All systems reviewed & are unremarkable except as noted in HP
[2020-05-09 17:11] LABS: Glucose Point of Care 275 (65-105)
[2020-05-09 17:46] LABS: SARS-CoV-2 RNA PCR Negative
[2020-05-09 20:11] LABS: Glucose Point of Care 166 (65-105)
[2020-05-10] VITALS (10 sets, daily range): BP systolic 149–189; BP diastolic 47–72; PULSE 58–76; RESP 18–20; TEMP 36–37.1; O2SAT 96–99
[2020-05-10] MEDS: LEVOTHYROXINE SODIUM 50 MCG TABLET PO (05:21)
[2020-05-10] MEDS: hydrALAZINE HCL 50 MG TABLET PO ×4 (05:21→23:50)
[2020-05-10 05:46] LABS: Alanine Aminotransferase 14 U/L (4-35); Albumin Level 3.6 g/dL (3.5-5.1); Alkaline Phosphatase 63 U/L (38-126); Anion Gap 9 mmol/L (8-16); Aspartate Amino Transferase 21 U/L (14-36); Bilirubin,Total 0.2 mg/dL (0.2-1.3); Blood Urea Nitrogen 55 mg/dL (7-17); Calcium 9.3 mg/dL (8.4-10.2); Carbon Dioxide 22 mmol/L (22-30); Chloride 110 mmol/L (98-107); Estimated CRCL calculation 10 ml/min; Estimated Glomerular Filt Rate 14; Glucose 146 mg/dL (65-105); Potassium 4.4 mmol/L (3.4-5.0); Sodium 141 mmol/L (137-145)
[2020-05-10] MEDS: ASPIRIN 325 MG TABLET PO (08:36)
[2020-05-10] MEDS: amLODIPine BESYLATE 5 MG TABLET 10 MG PO (08:36)
[2020-05-10] MEDS: PANTOPRAZOLE 40 MG TABLET PO ×2 (08:36→16:11)
[2020-05-10] MEDS: carvediloL 25 MG TABLET PO ×2 (08:36→20:40)
[2020-05-10] MEDS: CHOLECALCIFEROL 1,000 UNITS TABLET 2000 UNITS PO (08:36)
[2020-05-10] MEDS: ATORVASTATIN 20 MG TABLET PO (08:36)
[2020-05-10 09:06] LABS: Glucose Point of Care 226 (65-105)
--- NOTE | 2020-05-10 10:22 | PM.IMPN ---
Progress Note: A&P Assessment and Plan (1) Congestive heart failure: Qualifiers: Heart failure chronicity: acute on chronic Heart failure type: diastolic Qualified Code(s): I50.33 - Acute on chronic diastolic (congestive) heart failure Code(s): I50.9 - Heart failure, unspecified Status: Chronic Assessment and Plan: Recent hospital admission last week was taken off her diuretics due to worsening renal function. CXR suggests pulmonary edema new from 04/28. Repeat CXR this morning shows some improvement after yesterday's bumex. Recent echocardiogram 04/29/20 shows mild pulmonary hypertension, severely increased LV thickness, grade I diastolic dysfunction, normal systolic function EF 55-60%. She received two doses of IV bumex yesterday per nephrology, appreciate input. She is otherwise maintained on her home carvedilol. ARB was also stopped last admission due to renal function. Monitor I&Os, daily weights. (2) CKD (chronic kidney disease) stage 4, GFR 15-29 ml/min: Code(s): N18.4 - Chronic kidney disease, stage 4 (severe) Status: Acute Assessment and Plan: Appreciate nephrology recommendations. Difficult balance between her renal function and need for diuretics. Renal function has worsened in the last year but is overall stable since discharge last week, better actually. (3) Uncontrolled hypertension: Code(s): I10 - Essential (primary) hypertension Status: Chronic Assessment and Plan: Maintained on carvedilol and hydralazine. Appreciate nephrology input. Last BP 182 systolic prior to morning medications, will follow trend of BPs today and make adjustments as needed. (4) Carotid artery disease: Qualifiers: Carotid artery disease type: stenosis Laterality: right Qualified Code(s): I65. - Occlusion and stenosis of right carotid artery Code(s): I77.9 - Disorder of arteries and arterioles, unspecified Status: Acute Assessment and Plan: Noted on 04/29/20 - 50-69% stenosis in the right internal carotid artery, less than 50% stenosis in left internal carotid artery. (5) Hypothyroidism, unspecified: Qualifiers: Hypothyroidism type: acquired Qualified Code(s): E03.9 - Hypothyroidism, unspecified Code(s): E03.9 - Hypothyroidism, unspecified Status: Chronic Assessment and Plan: Continue with levothyroxine. (6) Anemia: Qualifiers: Anemia type: due to chronic kidney disease Chronic kidney disease stage: stage 4 (severe) Qualified Code(s): N18.4 - Chronic kidney disease, stage 4 (severe); D63.1 - Anemia in chronic kidney disease Code(s): D64.9 - Anemia, unspecified Status: Chronic Assessment and Plan: Chronic, stable since last discharge. Suspect related to CKD. No evidence of acute bleeding. Monitor CBC. (7) Person under investigation for COVID-19: Code(s): Z20.822 - Contact with and (suspected) exposure to COVID-19 Status: Ruled-out Assessment and Plan: COVID negative by PCR. Subjective Date/time seen: 05/10/20 10:30 Interval history: Ms. Mandel is a 80yo F admitted for uncontrolled hypertension and pulmonary edema. She was recently admitted and her diuretics were stopped due to worsening renal failure. She describes some shortness of breath. Denies chest pain. Her main complaint is feeling tired this morning. She tolerated some breakfast without nausea or vomiting; denies abdominal pain. Review of Systems Review of Systems: All systems reviewed & are unremarkable except as noted in HPI and below Exam Narrative: Exam Narrative: General: Female resti
[2020-05-10 10:45] LABS: Free T4 Free Thyroxine Reflex 1.42 ng/dL (0.78-2.19)
[2020-05-10 11:27] LABS: Glucose Point of Care 238 (65-105)
[2020-05-10] MEDS: INSULIN ASPART (*BKC) 100 UNITS/ML SUB-Q ×2 (12:00→16:37)
[2020-05-10 12:29] LABS: Total Triiodothyronine (T3) 0.71 NG/ML (0.97-1.69)
--- NOTE | 2020-05-10 15:51 | PM.PNNEP ---
Progress Note: A&P Assessment and Plan (1) CKD (chronic kidney disease) stage 4, GFR 15-29 ml/min: Code(s): N18.4 - Chronic kidney disease, stage 4 (severe) Status: Acute Assessment and Plan: creatinine about the same (if not better) from last hospitalization - still higher than last year - suspect disease progression but attempted to do a renal biopsy for a definitive diagnosis -- consideration of getting this done as an inpatient but has been on full dose ASA since admission so may have to defer to outpatient scheduling again (if at all) -- hesitant to do biopsy given anemia as well she may need/require a higher creatinine to keep her respiratory/volume status stable with ongoing use of diuretics follow trend of creatinine with IV diuresis (2) Malignant hypertension: Code(s): I10 - Essential (primary) hypertension Status: Acute Assessment and Plan: not sure what precipitated acute rise (unless it was CHF exacerbation) doing better at this time BP was running in the 140 - 150s systolic range with her current medications (coreg, amlodipine, and hydralazine) follow trend with home meds and addition of IV diuretics we can titrate hydralazine if necessary would avoid overcontrol given her advanced CKD (3) CHF exacerbation: Code(s): I50.9 - Heart failure, unspecified Status: Acute Assessment and Plan: continue IV bumex likely transition to oral bumex starting tomorrow it would seem she needs to be on diuretic therapy (held on last hospitalization/discharge and now with evidence of pulmonary edema on admission) (4) Anemia: Qualifiers: Anemia type: due to chronic kidney disease Chronic kidney disease stage: stage 4 (severe) Qualified Code(s): N18.4 - Chronic kidney disease, stage 4 (severe); D63.1 - Anemia in chronic kidney disease Code(s): D64.9 - Anemia, unspecified Status: Chronic Assessment and Plan: due to CKD resume Epogen since BP doing better dosed with venofer on last hospitalization (5) Dizziness: Code(s): R42 - Dizziness and giddiness Status: Chronic Assessment and Plan: fairly extensive work-up and evaluation on last hospitalization follow symptoms with above interventions Will continue to follow. Subjective Date/time seen: 05/10/20 15:51 Overall, she seems to be doing better; BP still on the high side but doing much better than on admission; respiratory status has improved as well with reported only mild shortness of breath at this time; no other acute issues or problems voiced at this time. Exam Narrative: Exam Narrative: General: WD/WN female in NAD Heart: normal S1 and S2; no rub Lungs: decreased breath sounds Abdomen: soft, nontender, nondistended, positive bowel sounds Extremities: no cyanosis or clubbing; 1+edema Skin: warm and dry Objective Data Vital Signs Vital Signs: Vital Signs Temp Pulse Resp BP Pulse Ox 05/10/20 12:00 36.0 C L 61 18 178/54 H 96 05/10/20 09:27 71 05/10/20 08:36 70 05/10/20 08:00 36.2 C L 70 20 182/49 H 98 05/10/20 05:22 71 05/10/20 04:00 36.0 C L 76 20 149/72 H 96 05/10/20 00:00 36.7 C 70 18 179/50 H 98 05/09/20 20:27 65 05/09/20 20:00 36.4 C L 64 18 169/48 H 99 Intake/Output Intake/Output: Intake & Output 05/07/20 05/08/20 05/09/20 05/10/20 23:59 23:59 23:59 23:59 Intake Total 100 1250 1360 Output Total 1300 1300 Balance 100 -50 60 Meds/Results Medications: Active Medications Generic Name Dose Route Start Last Admin Trade Name Freq PRN Reason Stop Dose Admin Amlodipine Besylate 10 mg 05/09/20 09:00 05/10/20 08:36 Amlodipine Besylate 5 Mg Tablet PO 10 mg QAM [facility] Administration Aspirin 325 mg 05/09/20 08:00 05/10/20 08:36 Aspirin 325 Mg Tablet PO 325 mg
[2020-05-10] MEDS: BUMETANIDE INJ 2.5 MG/10 ML VIAL 1.5 MG IV PUSH (16:11)
[2020-05-10] MEDS: LATANOPROST 0.005% OP SOLN 2.5 ML BTL 1 DROP EACH EYE (16:18)
[2020-05-10 16:28] LABS: Glucose Point of Care 285 (65-105)
[2020-05-10] MEDS: hydrALAZINE HCL 20 MG/ML VIAL 10 MG IV PUSH (17:50)
--- NOTE | 2020-05-10 18:47 | PC.NURSE ---
This patient, Lilian Mandel, was transferred to [[address] [place] [address] ] on 05/10/20 at 1847. Personal belongings sent with patient. Report given to [ jhon tilley]. Appropriate documentation sent with patient.
--- NOTE | 2020-05-10 19:12 | PC.NURSE ---
Patient transferred from IMU to [address] [place] [address].
[2020-05-10 20:15] LABS: Glucose Point of Care 253 (65-105)
[2020-05-10] MEDS: ACETAMINOPHEN 325 MG TABLET 650 MG PO (21:10)
[2020-05-11] VITALS (7 sets, daily range): BP systolic 146–167; BP diastolic 46–61; PULSE 53–86; RESP 16–20; TEMP 36.4–37; O2SAT 98–100
[2020-05-11 05:55] LABS: Basophils Percent Auto 0.5 % (0.2-1.2); Eosinophils Absolute Auto 0.4 K/mm3 (0-0.3); Eosinophils Percent Auto 6.2 % (0-4.4); Hemoglobin 7.4 g/dL (12.0-15.0); Immature Granulocyte Absolute 0.03 K/mm3 (0.00-0.031); Immature Granulocyte Percent A 0.5 % (0-0.5); Lymphocytes Absolute Auto 0.89 K/mm3 (0.9-3.2); Lymphocytes Percent Auto 13.7 % (18.3-44.2); Mean Corpuscular HGB Conc 30.8 g/dl (32-36); Mean Corpuscular Hemoglobin 29.6 pg (26-34); Mean Platelet Volume 9.6 fl (7.4-10.4); Monocytes Absolute Auto 0.7 K/mm3 (0.1-0.6); Monocytes Percent Auto 10.2 % (2.6-8.5); Neutrophils Absolute Auto 4.5 K/mm3 (1.3-6.7); Neutrophils Percent Auto 68.9 % (45.5-73.1); Platelet Count Result 281 k/mm3 (150-375); Red Cell Distribution Width 13.7 % (11.5-14.5); White Blood Count 6.5 K/mm3 (4.5-10.0)
[2020-05-11] MEDS: LEVOTHYROXINE SODIUM 50 MCG TABLET PO (06:04)
[2020-05-11] MEDS: hydrALAZINE HCL 50 MG TABLET PO ×4 (06:04→23:52)
[2020-05-11 06:14] LABS: Anion Gap 7 mmol/L (8-16); Blood Urea Nitrogen 52 mg/dL (7-17); Calcium 8.6 mg/dL (8.4-10.2); Carbon Dioxide 22 mmol/L (22-30); Chloride 111 mmol/L (98-107); Estimated CRCL calculation 10 ml/min; Estimated Glomerular Filt Rate 13; Glucose 176 mg/dL (65-105); Potassium 4.3 mmol/L (3.4-5.0); Sodium 140 mmol/L (137-145)
[2020-05-11] MEDS: ASPIRIN 325 MG TABLET PO (08:06)
[2020-05-11] MEDS: ATORVASTATIN 20 MG TABLET PO (08:06)
[2020-05-11] MEDS: carvediloL 25 MG TABLET PO ×2 (08:06→20:10)
[2020-05-11] MEDS: BUMETANIDE INJ 2.5 MG/10 ML VIAL 1.5 MG IV PUSH ×2 (08:06→17:28)
[2020-05-11] MEDS: amLODIPine BESYLATE 5 MG TABLET 10 MG PO (08:06)
[2020-05-11] MEDS: CHOLECALCIFEROL 1,000 UNITS TABLET 2000 UNITS PO (08:07)
[2020-05-11] MEDS: PANTOPRAZOLE 40 MG TABLET PO ×2 (08:07→17:28)
[2020-05-11 08:27] LABS: Glucose Point of Care 168 (65-105)
--- NOTE | 2020-05-11 11:04 | PM.IMPN ---
Progress Note: A&P Assessment and Plan (1) Congestive heart failure: Qualifiers: Heart failure chronicity: acute on chronic Heart failure type: diastolic Qualified Code(s): I50.33 - Acute on chronic diastolic (congestive) heart failure Code(s): I50.9 - Heart failure, unspecified Status: Chronic Assessment and Plan: Recent hospital admission last week was taken off her diuretics due to worsening renal function. CXR suggests pulmonary edema new from 04/28. Repeat CXR yesterday showed some improvement after initiation of Bumex. Recent echocardiogram 04/29/20 shows mild pulmonary hypertension, severely increased LV thickness, grade I diastolic dysfunction, normal systolic function EF 55-60%. She is receiving IV Bumex by nephrology recommendations, appreciate input. She is otherwise maintained on her home carvedilol. ARB was also stopped last admission due to renal function. Monitor I&Os, daily weights. (2) CKD (chronic kidney disease) stage 4, GFR 15-29 ml/min: Code(s): N18.4 - Chronic kidney disease, stage 4 (severe) Status: Acute Assessment and Plan: Appreciate nephrology recommendations. Difficult balance between her renal function and need for diuretics. Renal function has worsened in the last year but is overall stable since discharge last week, better actually. (3) Uncontrolled hypertension: Code(s): I10 - Essential (primary) hypertension Status: Chronic Assessment and Plan: BPs are improving, last 151/46. Maintained on carvedilol and hydralazine. Appreciate nephrology input. (4) Carotid artery disease: Qualifiers: Carotid artery disease type: stenosis Laterality: right Qualified Code(s): I65.21 - Occlusion and stenosis of right carotid artery Code(s): I77.9 - Disorder of arteries and arterioles, unspecified Status: Acute Assessment and Plan: Noted on 04/29/20 - 50-69% stenosis in the right internal carotid artery, less than 50% stenosis in left internal carotid artery. (5) Hypothyroidism, unspecified: Qualifiers: Hypothyroidism type: acquired Qualified Code(s): E03.9 - Hypothyroidism, unspecified Code(s): E03.9 - Hypothyroidism, unspecified Status: Chronic Assessment and Plan: Continue with levothyroxine. TSH is a bit elevated on arrival, will recheck in AM before adjusting medication. (6) Anemia: Qualifiers: Anemia type: due to chronic kidney disease Chronic kidney disease stage: stage 4 (severe) Qualified Code(s): N18.4 - Chronic kidney disease, stage 4 (severe); D63.1 - Anemia in chronic kidney disease Code(s): D64.9 - Anemia, unspecified Status: Chronic Assessment and Plan: Chronic, stable since last discharge. Suspect related to CKD. No evidence of acute bleeding. Monitor CBC. Subjective Date/time seen: 05/11/20 1000 Interval history: Ms. Mandel is a 80yo F admitted for uncontrolled hypertension and pulmonary edema. She is doing a little better today. Main complaint is feeling tired. Mild shortness of breath is unchanged. She reports constipation without abdominal pain or nausea. Tolerating oral intake. Review of Systems Review of Systems: All systems reviewed & are unremarkable except as noted in HPI and below Exam Narrative: Exam Narrative: General: Female resting comfortably supine in bed in no acute distress. HEENT: Normocephalic, EOMI, oral mucosa moist. Cardiovascular: Rate and rhythm regular. Respiratory: Decreased breath sounds VASQUEZ; respirations even and nonlabored. Tolerating room air. Abdomen: Soft, non-tender, non-distended, bowel sounds present. Extremities: Peripheral
[2020-05-11 11:40] LABS: Glucose Point of Care 253 (65-105)
[2020-05-11] MEDS: INSULIN ASPART (*BKC) 100 UNITS/ML SUB-Q ×2 (11:44→17:25)
[2020-05-11] MEDS: polyethylene glycoL 3350 17 GM POWD.PACK PO (13:47)
--- NOTE | 2020-05-11 13:57 | PM.PNNEP ---
Progress Note: A&P Assessment and Plan (1) CKD (chronic kidney disease) stage 4, GFR 15-29 ml/min: Code(s): N18.4 - Chronic kidney disease, stage 4 (severe) Status: Acute Assessment and Plan: creatinine about the same (if not better) from last hospitalization - still higher than last year - suspect disease progression but attempted to do a renal biopsy for a definitive diagnosis consideration of getting this (biopsy) done as an inpatient but has been on full dose ASA since admission so may have to defer to outpatient scheduling again (if at all) - hesitant to do biopsy given anemia as well she may need/require a higher creatinine to keep her respiratory/volume status stable with ongoing use of diuretics follow trend of creatinine with IV diuresis (2) Malignant hypertension: Code(s): I10 - Essential (primary) hypertension Status: Acute Assessment and Plan: not sure what precipitated acute rise (unless it was CHF exacerbation) doing better at this time BP was running in the 140 - 150s systolic range with her current medications (coreg, amlodipine, and hydralazine) follow trend with home meds and addition of IV diuretics we can titrate hydralazine if necessary would avoid overcontrol given her advanced CKD (3) CHF exacerbation: Code(s): I50.9 - Heart failure, unspecified Status: Acute Assessment and Plan: continue IV bumex likely transition to oral bumex starting tomorrow it would seem she needs to be on diuretic therapy (held on last hospitalization/discharge and now with evidence of pulmonary edema on admission) (4) Anemia: Qualifiers: Anemia type: due to chronic kidney disease Chronic kidney disease stage: stage 4 (severe) Qualified Code(s): N18.4 - Chronic kidney disease, stage 4 (severe); D63.1 - Anemia in chronic kidney disease Code(s): D64.9 - Anemia, unspecified Status: Chronic Assessment and Plan: due to CKD resume Epogen since BP doing better dosed with venofer on last hospitalization (5) Dizziness: Code(s): R42 - Dizziness and giddiness Status: Chronic Assessment and Plan: fairly extensive work-up and evaluation on last hospitalization follow symptoms with above interventions Will continue to follow. Subjective Date/time seen: 05/11/20 13:57 Continue to make slow and steady improvement; kidney function relatively stable inspite of IV diuretic therapy; repeat CXR demonstrate some improvement in pulmonary edema as well; BP has been slowly improving as well; no apparent distress at this time; no events/issues overnight or earlier this AM. Exam Narrative: Exam Narrative: General: WD/WN female in NAD Heart: normal S1 and S2; no rub Lungs: decreased breath sounds Abdomen: soft, nontender, nondistended, positive bowel sounds Extremities: no cyanosis or clubbing; 1+ edema Skin: warm and intact Objective Data Vital Signs Vital Signs: Vital Signs Temp Pulse Resp BP Pulse Ox 05/11/20 12:50 36.4 C 65 16 151/46 H 99 05/11/20 08:45 36.5 C 67 16 159/56 H 99 05/11/20 08:06 86 05/11/20 06:00 36.7 C 64 20 146/56 H 99 05/11/20 02:00 37.0 C 53 L 20 167/61 H 98 05/10/20 22:00 37.1 C 72 20 150/48 H 99 05/10/20 20:40 72 05/10/20 16:00 36.2 C L 58 L 18 189/47 H 96 Intake/Output Intake/Output: Intake & Output 05/08/20 05/09/20 05/10/20 05/11/20 23:59 23:59 23:59 23:59 Intake Total 100 1250 1360 870 Output Total 1300 1300 800 Balance 100 -50 60 70 Meds/Results Medications: Active Medications Generic Name Dose Route Start Last Admin Trade Name Freq PRN Reason Stop Dose Admin Amlodipine Besylate 10 mg 05/09/20 09:00 05/11/20 08:06 Amlodipine Besylate 5 Mg Tablet PO 10 mg QAM [facility] Administration Aspirin 325 mg 05/09/20 08:00 05/11/20 08:06 Aspirin 325 Mg Tablet
[2020-05-11 16:25] LABS: Glucose Point of Care 213 (65-105)
[2020-05-11] MEDS: EPOETIN ALFA-EPBX 20,000 UNITS/ML VIAL 20000 UNITS SUB-Q (17:27)
[2020-05-11] MEDS: LATANOPROST 0.005% OP SOLN 2.5 ML BTL 1 DROP EACH EYE (17:30)
[2020-05-11 21:26] LABS: Glucose Point of Care 220 (65-105)
[2020-05-12] VITALS: BP 156/47; PULSE 61; RESP 16; TEMP 36.4; O2SAT 99
[2020-05-12 04:00] VITALS: BP 171/49; PULSE 64; RESP 16; TEMP 36.5; O2SAT 97
[2020-05-12] MEDS: hydrALAZINE HCL 50 MG TABLET PO ×2 (05:09→11:21)
[2020-05-12] MEDS: LEVOTHYROXINE SODIUM 50 MCG TABLET PO (05:09)
[2020-05-12 05:21] LABS: Hematocrit 25.3 % (37.0-47.0); Hemoglobin 7.5 g/dL (12.0-15.0); Mean Corpuscular HGB Conc 29.6 g/dl (32-36); Mean Corpuscular Hemoglobin 28.5 pg (26-34); Mean Corpuscular Volume 96.2 fl (80-100); Mean Platelet Volume 9.8 fl (7.4-10.4); Platelet Count Result 297 k/mm3 (150-375); Red Blood Count 2.63 M/mm3 (4.2-5.4); Red Cell Distribution Width 13.9 % (11.5-14.5)
[2020-05-12 05:26] LABS: Anion Gap 6 mmol/L (8-16); Blood Urea Nitrogen 53 mg/dL (7-17); Calcium 8.6 mg/dL (8.4-10.2); Carbon Dioxide 23 mmol/L (22-30); Chloride 111 mmol/L (98-107); Estimated CRCL calculation 14 ml/min; Estimated Glomerular Filt Rate 14; Glucose 168 mg/dL (65-105); Potassium 4.6 mmol/L (3.4-5.0); Sodium 140 mmol/L (137-145)
--- NOTE | 2020-05-12 05:50 | PC.NURSE ---
Patients blood pressure 171/49 gave scheduled hydralazine. Didn't administer PRN due to scheduled dose being at same time. Ill monitor blood pressure.
--- NOTE | 2020-05-12 07:35 | P.PNNP_ITS ---
Progress Note: A&P Assessment and Plan (1) CKD (chronic kidney disease) stage 4, GFR 15-29 ml/min: Code(s): N18.4 - Chronic kidney disease, stage 4 (severe) Status: Acute Assessment and Plan: * creatinine is about the same as it was at discharge last hospitalization. * Dr. Fulton follows as an outpatient and will determine whether biopsy is needed. * She will probably need access placement. * Okay for discharge from the kidney standpoint (2) Malignant hypertension: Code(s): I10 - Essential (primary) hypertension Status: Acute Assessment and Plan: * BP currently wanting 150-180. * Goal is 140-160 for now * current medications (coreg, amlodipine, and hydralazine) will change amlodipine to nifedipine. * would avoid overcontrol given her advanced CKD (3) CHF exacerbation: Code(s): I50.9 - Heart failure, unspecified Status: Acute Assessment and Plan: * Now on oral Bumex. * Seems compensated. (4) Anemia: Qualifiers: Anemia type: due to chronic kidney disease Chronic kidney disease stag e: stage 4 (severe) Qualified Code(s): N18.4 - Chronic kidney disease, stage 4 (severe); D63.1 - Anemia in chronic kidney disease Code(s): D64.9 - Anemia, unspecified Status: Chronic Assessment and Plan: * due to CKD * resume Epogen since BP doing better * dosed with venofer on last hospitalization (5) Dizziness: Code(s): R42 - Dizziness and giddiness Status: Chronic Assessment and Plan: * fairly extensive work-up and evaluation on last hospitalization * follow symptoms with above interventions Subjective Date/time seen: 05/12/20 07:35 Interval history: Lilian is feeling better today. Eager for discharge. She has no shortness of breath today. Eating well. Review of Systems Cardiovascular: Cardiovascular: Reports no additional cardiovascular complaints Respiratory: Respiratory: Reports no additional respiratory complaints Gastrointestinal: Gastrointestinal: Reports no additional gastrointestinal complaints Genitourinary: Genitourinary: Reports no additional female genitourinary complaints Exam Narrative: Exam Narrative: GENERAL APPEARANCE: Elderly AA female in no acute distress CARDIOVASCULAR: RRR, normal S1 and S2, no rub or gallop RESPIRATORY: Clear at the base ABDOMEN: soft, nontender, nondistended, positive bowel sounds present EXTREMITIES: no evidence of cyanosis, clubbing; 1-2+ edema NEUROLOGICAL: alert and oriented x 3; CN II - XII intact bilaterally; no focal deficits noted Objective Data Vital Signs Vital Signs: Vital Signs - 24 hr 05/11/20 08:06 05/11/20 08:45 05/11/20 12:50 Temperature 36.5 C 36.4 C Pulse Rate 86 67 65 Respiratory Rate 16 16 Blood Pressure 159/56 H 151/46 H Pulse Oximetry 99 99 05/11/20 18:50 05/11/20 20:10 05/12/20 00:00 Temperature 37.0 C 36.4 C Pulse Rate 67 80 61 Respiratory Rate 16 16 Blood Pressure 152/48 H 156/47 H Pulse Oximetry 100 99 05/12/20 04:00 Temperature 36.5 C Pulse Rate 64 Respiratory Rate 16 Blood Pressure 171/49 H Pulse Oximetry 97 Intake/Output Intake/Output: Intake & Output 05/09/20
--- NOTE | 2020-05-12 07:35 | PM.PNNEP ---
Progress Note: A&P Assessment and Plan (1) CKD (chronic kidney disease) stage 4, GFR 15-29 ml/min: Code(s): N18.4 - Chronic kidney disease, stage 4 (severe) Status: Acute Assessment and Plan: creatinine is about the same as it was at discharge last hospitalization. Dr. Fulton follows as an outpatient and will determine whether biopsy is needed. She will probably need access placement. Okay for discharge from the kidney standpoint (2) Malignant hypertension: Code(s): I10 - Essential (primary) hypertension Status: Acute Assessment and Plan: BP currently wanting 150-180. Goal is 140-160 for now current medications (coreg, amlodipine, and hydralazine) will change amlodipine to nifedipine. would avoid overcontrol given her advanced CKD (3) CHF exacerbation: Code(s): I50.9 - Heart failure, unspecified Status: Acute Assessment and Plan: Now on oral Bumex. Seems compensated. (4) Anemia: Qualifiers: Anemia type: due to chronic kidney disease Chronic kidney disease stage: stage 4 (severe) Qualified Code(s): N18.4 - Chronic kidney disease, stage 4 (severe); D63.1 - Anemia in chronic kidney disease Code(s): D64.9 - Anemia, unspecified Status: Chronic Assessment and Plan: due to CKD resume Epogen since BP doing better dosed with venofer on last hospitalization (5) Dizziness: Code(s): R42 - Dizziness and giddiness Status: Chronic Assessment and Plan: fairly extensive work-up and evaluation on last hospitalization follow symptoms with above interventions Subjective Date/time seen: 05/12/20 07:35 Interval history: Lilian is feeling better today. Eager for discharge. She has no shortness of breath today. Eating well. Review of Systems Cardiovascular: Cardiovascular: Reports no additional cardiovascular complaints Respiratory: Respiratory: Reports no additional respiratory complaints Gastrointestinal: Gastrointestinal: Reports no additional gastrointestinal complaints Genitourinary: Genitourinary: Reports no additional female genitourinary complaints Exam Narrative: Exam Narrative: GENERAL APPEARANCE: Elderly AA female in no acute distress CARDIOVASCULAR: RRR, normal S1 and S2, no rub or gallop RESPIRATORY: Clear at the base ABDOMEN: soft, nontender, nondistended, positive bowel sounds present EXTREMITIES: no evidence of cyanosis, clubbing; 1-2+ edema NEUROLOGICAL: alert and oriented x 3; CN II - XII intact bilaterally; no focal deficits noted Objective Data Vital Signs Vital Signs: Vital Signs - 24 hr 05/11/20 08:06 05/11/20 08:45 05/11/20 12:50 Temperature 36.5 C 36.4 C Pulse Rate 86 67 65 Respiratory Rate 16 16 Blood Pressure 159/56 H 151/46 H Pulse Oximetry 99 99 05/11/20 18:50 05/11/20 20:10 05/12/20 00:00 Temperature 37.0 C 36.4 C Pulse Rate 67 80 61 Respiratory Rate 16 16 Blood Pressure 152/48 H 156/47 H Pulse Oximetry 100 99 05/12/20 04:00 Temperature 36.5 C Pulse Rate 64 Respiratory Rate 16 Blood Pressure 171/49 H Pulse Oximetry 97 Intake/Output Intake/Output: Intake & Output 05/09/20 05/10/20 05/11/20 05/12/20 23:59 23:59 23:59 23:59 Intake Total 1250 1360 1500 300 Output Total 1300 1300 1100 500 Balance -50 60 400 -200 Meds/Results Medications: Active Medications Generic Name Dose Route Start Last Admin Trade Name Freq PRN Reason Stop Dose Admin Amlodipine Besylate 10 mg 05/09/20 09:00 05/11/20 08:06 Amlodipine Besylate 5 Mg Tablet PO 10 mg QAM [facility] Administration Aspirin 325 mg 05/09/20 08:00 05/11/20 08:06 Aspirin 325 Mg Tablet PO 325 mg DAILY@0800 [facility] Administration Atorvastatin Calcium 20 mg 05/09/20 09:00 05/11/20 08:06 Atorvastatin 20 Mg Tablet PO 20 mg DAILY [facility] Administration Bumetanide 1 mg 05/12/20 09:00 Bumetanide 1 Mg Tablet PO BID [facility] Carvedilol 25 mg
[2020-05-12 08:00] LABS: Glucose Point of Care 159 (65-105)
[2020-05-12] MEDS: polyethylene glycoL 3350 17 GM POWD.PACK PO (08:07)
[2020-05-12 08:08] VITALS: PULSE 64
[2020-05-12] MEDS: PANTOPRAZOLE 40 MG TABLET PO (08:08)
[2020-05-12] MEDS: ASPIRIN 325 MG TABLET PO (08:08)
[2020-05-12] MEDS: ATORVASTATIN 20 MG TABLET PO (08:08)
[2020-05-12] MEDS: BUMETANIDE 1 MG TABLET PO (08:08)
[2020-05-12] MEDS: CHOLECALCIFEROL 1,000 UNITS TABLET 2000 UNITS PO (08:08)
[2020-05-12] MEDS: carvediloL 25 MG TABLET PO (08:08)
[2020-05-12] MEDS: EPOETIN ALFA-EPBX 20,000 UNITS/ML VIAL 20000 UNITS SUB-Q (08:13)
[2020-05-12] MEDS: NIFEdipine 30 MG TAB.ER.24 60 MG PO (08:34)
[2020-05-12 10:00] VITALS: BP 152/49; PULSE 57; RESP 14; TEMP 36.4; O2SAT 99
--- NOTE | 2020-05-12 10:40 | PM.DS ---
DS: Admitting Diagnosis Admitting Diagnosis Admitting Diagnosis: uncontrolled hypertension DS: Discharge Diagnosis Discharge Diagnosis (1) Congestive heart failure: Qualifiers: Heart failure chronicity: acute on chronic Heart failure type: diastolic Qualified Code(s): I50.33 - Acute on chronic diastolic (congestive) heart failure Code(s): I50.9 - Heart failure, unspecified Status: Chronic Assessment and Plan: Date of Admission 05/08/20 Date of Discharge/DOS 05/12/20 Ms. Mandel is a pleasant 80yo F with history of hypertension, chronic kidney disease, chronic anemia, and hypothyroidism who presented to the ED for evaluation of blood pressure in 200s systolic by home health nurse. Patient complained of dizziness and EMS was activated. She was recently discharged from the hospital last week and at that time she was taken off of her Lasix and her ARB due to worsening renal function. Chest XR this admission showed pulmonary edema. She described some shortness of breath and cough. COVID negative. She was diuresed with IV bumex which she tolerated well. Her main complaint is feeling tired. Her CHF with pulmonary edema as well as chronic anemia may contribute to this. She continued working with PT/OT and she will remain current with her home health services at discharge. Her amlodipine was switched to nifedipine and will be prescribed new Bumex at discharge per nephrology recommendations. She diuresed well and her blood pressures improved. She is hemodynamically stable for discharge on 05/12/20 with instructions to follow up with PCP and Dr Fulton, nephrology. Recent hospital admission last week was taken off her diuretics due to worsening renal function. CXR suggests pulmonary edema new from 04/28. Repeat CXR showed some improvement after initiation of Bumex. Recent echocardiogram 04/29/20 shows mild pulmonary hypertension, severely increased LV thickness, grade I diastolic dysfunction, normal systolic function EF 55-60%. Diuresed with IV bumex, transitioned to oral bumex at discharge. Remains on her home carvedilol. ARB was also stopped last admission due to renal function. Cannot tolerate TILA due to h/o angioedema. (2) CKD (chronic kidney disease) stage 4, GFR 15-29 ml/min: Code(s): N18.4 - Chronic kidney disease, stage 4 (severe) Status: Acute Assessment and Plan: Appreciate nephrology recommendations. Difficult balance between her renal function and need for diuretics. Renal function has worsened in the last year but is overall stable since discharge last week, better actually. (3) Uncontrolled hypertension: Code(s): I10 - Essential (primary) hypertension Status: Chronic Assessment and Plan: BPs improved. Maintained on carvedilol and hydralazine. F/U nephrology and PCP. (4) Carotid artery disease: Qualifiers: Carotid artery disease type: stenosis Laterality: right Qualified Code(s): I65.21 - Occlusion and stenosis of right carotid artery Code(s): I77.9 - Disorder of arteries and arterioles, unspecified Status: Acute Assessment and Plan: Noted on 04/29/20 - 50-69% stenosis in the right internal carotid artery, less than 50% stenosis in left internal carotid artery. (5) Hypothyroidism, unspecified: Qualifiers: Hypothyroidism type: acquired Qualified Code(s): E03.9 - Hypothyroidism, unspecified Code(s): E03.9 - Hypothyroidism, unspecified Status: Chronic Assessment and Plan: Continue with levothyroxine. TSH is a bit elevated on arrival, recheck prior to discharge is within normal limits. (6) Anemia: Qualifiers: Anemia type: due to chronic kidney dise
[2020-05-12] MEDS: INSULIN ASPART (*BKC) 100 UNITS/ML SUB-Q (11:19)
[2020-05-12 12:43] LABS: Glucose Point of Care 215 (65-105)
== END 2020-05-12 13:35 | disposition home health service (06) | DRG 291 ==
LOC: ANHED 15:57 → ANHIMU 19:48 → ANH2MED 05-12 10:59 → ANHIMU 05-15 14:08
PROVIDERS: Nurse Practitioner; Physician Assistant; Admitting Provider Family Medicine; Emergency Provider General Practice; PCP Internal Medicine; Visit Provider Family Medicine
DX: I13.0 Hypertensive heart and chronic kidney disease with heart failure and stage 1 through stage 4 chronic kidney disease, or unspecified chronic kidney disease (principal); I50.33 Acute on chronic diastolic (congestive) heart failure; N17.9 Acute kidney failure, unspecified; N18.4 Chronic kidney disease, stage 4 (severe); E11.22 Type 2 diabetes mellitus with diabetic chronic kidney disease; Z20.822 Contact with and (suspected) exposure to COVID-19; E11.29 Type 2 diabetes mellitus with other diabetic kidney complication; R80.9 Proteinuria, unspecified; D63.1 Anemia in chronic kidney disease; I65.21 Occlusion and stenosis of right carotid artery; E03.9 Hypothyroidism, unspecified; G47.33 Obstructive sleep apnea (adult) (pediatric); Z96.641 Presence of right artificial hip joint; Z96.653 Presence of artificial knee joint, bilateral; Z98.49 Cataract extraction status, unspecified eye; Z87.891 Personal history of nicotine dependence
CPT/HCPCS: 36415; 36600; 70450; 71045; 80048; 80053; 82375; 82805; 82948; 83050; 83735; 83880; 84439; 84443; 84480; 84484; 85025; 85027; 85610; 85730; 86140; 93005; 93970; 96365; 96375; 97110; 97116; 97161; 97165; 97530; 97535; 99285; A9270; C9803; G0378; J0131; J0360; J1815; J3010; Q5106; U0003; U0005

== ENCOUNTER 2020-05-19 11:48 | Outpatient (NON) | payer MEDICARE, OTHER, SELFPAY ==
[2020-05-19 12:45] LABS: Albumin Level 3.7 g/dL (3.5-5.1); Anion Gap 7 mmol/L (8-16); Blood Urea Nitrogen 65 mg/dL (7-17); Calcium 8.7 mg/dL (8.4-10.2); Carbon Dioxide 27 mmol/L (22-30); Chloride 105 mmol/L (98-107); Estimated Glomerular Filt Rate 13; Glucose 271 mg/dL (65-105); Phosphorus 4.4 mg/dL (2.5-4.5); Potassium 5.2 mmol/L (3.4-5.0); Sodium 139 mmol/L (137-145)
== END 2020-05-19 11:49 ==
PROVIDERS: PCP Internal Medicine; Visit Provider Internal Medicine
DX: I12.9 Hypertensive chronic kidney disease with stage 1 through stage 4 chronic kidney disease, or unspecified chronic kidney disease (principal); N18.4 Chronic kidney disease, stage 4 (severe); E11.22 Type 2 diabetes mellitus with diabetic chronic kidney disease; I50.812 Chronic right heart failure
CPT/HCPCS: 80069

== ENCOUNTER 2020-06-30 10:20 | Outpatient (CLI) | payer MEDICARE, OTHER, SELFPAY ==
[2020-06-30 10:52] LABS: Anion Gap 10 mmol/L (8-16); Blood Urea Nitrogen 98 mg/dL (7-17); Calcium 9.6 mg/dL (8.4-10.2); Carbon Dioxide 26 mmol/L (22-30); Chloride 105 mmol/L (98-107); Estimated Glomerular Filt Rate 9; Glucose 172 mg/dL (65-105); Potassium 4.2 mmol/L (3.4-5.0); Sodium 141 mmol/L (137-145)
== END 2020-06-30 10:21 | disposition home or self-care (01) ==
PROVIDERS: PCP Internal Medicine; Visit Provider Internal Medicine
DX: I10 Essential (primary) hypertension (principal)
CPT/HCPCS: 36415; 80048; 83735

== ENCOUNTER 2020-09-23 10:25 | Outpatient (CLI) | payer MEDICARE, OTHER, SELFPAY ==
[2020-09-23 11:13] LABS: Cholesterol 174 mg/dL (0-200); HDL Direct 66 mg/dL; Triglycerides 122 mg/dL (<150)
[2020-09-23 11:14] LABS: Albumin Level 4.7 g/dL (3.5-5.1); Anion Gap 15 mmol/L (8-16); Blood Urea Nitrogen 85 mg/dL (7-17); Calcium 9.8 mg/dL (8.4-10.2); Carbon Dioxide 23 mmol/L (22-30); Chloride 101 mmol/L (98-107); Estimated Glomerular Filt Rate 11; Glucose 227 mg/dL (65-105); Potassium 4.2 mmol/L (3.4-5.0); Sodium 139 mmol/L (137-145)
[2020-09-23 11:16] LABS: Creatinine Urine 151.1 mg/dL
[2020-09-23 11:24] LABS: LDL Cholesterol Direct 55 mg/dL
[2020-09-23 11:26] LABS: Parathyroid Intact 604.5 pg/mL (7.5-53.5)
[2020-09-23 12:12] LABS: Total Protein Urine Random 488 mg/dL; Ur Ttl Prot Creatinine Ratio 3.23 mg/mg (0-0.20)
[2020-09-23 12:26] LABS: Vitamin D 25 Hydroxy 48.2 ng/mL
== END 2020-09-23 10:26 | disposition home or self-care (01) ==
PROVIDERS: PCP Internal Medicine; Referring Provider Internal Medicine Nephrology; Visit Provider Internal Medicine
DX: E03.9 Hypothyroidism, unspecified (principal); E55.9 Vitamin D deficiency, unspecified; E11.29 Type 2 diabetes mellitus with other diabetic kidney complication; E78.5 Hyperlipidemia, unspecified; I12.9 Hypertensive chronic kidney disease with stage 1 through stage 4 chronic kidney disease, or unspecified chronic kidney disease; N18.4 Chronic kidney disease, stage 4 (severe); R80.8 Other proteinuria
CPT/HCPCS: 36415; 80061; 80069; 82306; 82570; 83036; 83970; 84156; 84443

== ENCOUNTER 2021-07-15 18:00 | Inpatient (IN) | payer MEDICARE, SELFPAY ==
[2021-07-15] VITALS (7 sets, daily range): BP systolic 188–219; BP diastolic 71–115; PULSE 76–93; RESP 15–26; TEMP 36.7; O2SAT 97–100; BMI 29.9
--- NOTE | ~2021-07-15 | XR_ITS ---
EXAMINATION: XR chest 1V portable INDICATION: Respiratory failure, cardiac arrest TECHNIQUE: Portable AP chest at 0512 hours COMPARISON: 07/18/2021 FINDINGS: The endotracheal tube ends approximately 3.5 cm above the antoni. The nasogastric tube is f ollowed as far as the stomach. Its tip is beyond the inferior margin of the radiograph. There are sma ll pleural effusions. Cardiomegaly is noted. There is a diffuse interstitial pattern. No pneumothorax is identified. IMPRESSION: 1. Cardiomegaly with mild pulmonary edema. 2. Small pleural effusions. Reviewed, dictated and finalized at location A.
--- NOTE | ~2021-07-15 | XR_ITS ---
EXAMINATION: XR barium swallow modified DATE: 07/25/2021 12:39 INDICATION: Dysphagia. TECHNIQUE: The patient was given barium-containing material of multiple consistencies to swallow by vanessa magana speech pathologist while I performed fluoroscopy. Dose-area product was 1.5 Gy-cm2. 2.3 minutes fluoroscopy time FINDINGS: Oral Stage: Within functional limits Pharyngeal Phase: Within functional limits Cervical/Esophageal Stage: Within functional limits IMPRESSION: Modified esophagram findings as above. Please refer to the speech therapy report for spec w. d. partlow developmental centerc recommendations. Reviewed, dictated and finalized at Location A. Reviewed, dictated and finalized at location A. IMPRESSION: Modified esophagram findings as above. Please refer to the speech t herapy report for specific recommendations.
--- NOTE | ~2021-07-15 | XR_ITS ---
EXAMINATION: XR abdomen/kub 1V INDICATION: Femoral catheter insertion TECHNIQUE: Supine view of the abdomen is obtained. COMPARISON: None FINDINGS: A right femoral catheter ends with its tip projecting in the right pelvis. Changes of right total hip arthroplasty are noted. There is severe lumbar spondylosis. IMPRESSION: 1. Right femoral catheter projecting with its tip in the right pelvis. Reviewed, dictated and finalized at location A.
--- NOTE | ~2021-07-15 | XR_ITS ---
EXAMINATION: XR chest 1V portable INDICATION: Respiratory failure TECHNIQUE: Portable AP chest at 0531 hours COMPARISON: 07/22/2021 FINDINGS: The endotracheal tube ends approximately 5.6 cm above the antoni. The nasogastric tube is f ollowed as far as the stomach. Its tip is beyond the inferior margin of the radiograph. A right inter nal jugular dialysis catheter ends with its tip in the distal superior vena cava. There is mild persi stent kinking of the catheter at the skin. Cardiomegaly is noted. There is a mild diffuse interstitia l pattern with slight improvement. Small pleural effusions are stable. There is no pneumothorax. Adva nced osteoarthritis is noted in the right shoulder. IMPRESSION: 1. Cardiomegaly with mildly improved pulmonary edema. 2. Small pleural effusions. Reviewed, dictated and finalized at location A.
--- NOTE | ~2021-07-15 | XR_ITS ---
EXAMINATION: XR chest 1V portable INDICATION: Respiratory failure TECHNIQUE: Portable AP chest at 0517 hours COMPARISON: 07/21/2021 FINDINGS: The endotracheal tube ends approximately 4.0 cm above the antoni. The nasogastric tube is f ollowed as far as the stomach. Its tip is beyond the inferior margin of the radiograph. Cardiomegaly is noted. A mild diffuse interstitial pattern persists without significant change. There are small pl eural effusions. No pneumothorax is identified. There are developing right basilar airspace opacities . IMPRESSION: 1. Cardiomegaly with improving pulmonary edema. 2. Small pleural effusions. 3. Bibasilar airspace opacities, consistent with atelectasis versus pneumonia. Reviewed, dictated and finalized at location A.
--- NOTE | ~2021-07-15 | XR_ITS ---
EXAMINATION: XR chest 1V portable INDICATION: Respiratory failure, cardiac arrest TECHNIQUE: Portable AP chest at 0518 hours COMPARISON: 07/20/2021 FINDINGS: The endotracheal tube ends approximately 4.3 cm above the antoni. The nasogastric tube is i n the stomach. Small pleural effusions persist but have improved. Mild pulmonary edema is also improv ed. There is stable cardiomegaly. No pneumothorax is identified. IMPRESSION: 1. Cardiomegaly with improving pulmonary edema. 2. Improving pleural effusions. Reviewed, dictated and finalized at location A.
--- NOTE | ~2021-07-15 | XR_ITS ---
EXAMINATION: XR fl guide central line place INDICATION: Femoral line placement TECHNIQUE: A single fluoroscopic image is submitted for review. Total fluoroscopic time was 42.1 seco nds. COMPARISON: None available FINDINGS: Fluoroscopic image demonstrates a right femoral catheter projecting in the right pelvis. Ch anges of right hip arthroplasty are noted. Please refer to procedure note for full details. IMPRESSION: 1. Right femoral catheter insertion. Reviewed, dictated and finalized at location A.
--- NOTE | ~2021-07-15 | XR_ITS ---
EXAMINATION: XR chest 1V portable INDICATION: Respiratory failure TECHNIQUE: Portable AP chest at 0516 hours COMPARISON: 07/19/2021 FINDINGS: The endotracheal tube ends approximately 3.9 cm above the antoni. The nasogastric tube is f ollowed as far as the stomach. Its tip is beyond the inferior margin of the radiograph. Cardiomegaly is noted. There is a stable diffuse interstitial pattern. There are small pleural effusions. No pneum othorax is identified. IMPRESSION: 1. Cardiomegaly with mild pulmonary edema. 2. Small pleural effusions. Reviewed, dictated and finalized at location A.
--- NOTE | ~2021-07-15 | XR_ITS ---
EXAMINATION: XR abdomen NG/feed tube insert INDICATION: OG tube placement TECHNIQUE: Portable AP KUB-NG at 0935 hours COMPARISON: None available FINDINGS: The OG tube ends in the stomach. The bowel gas pattern is normal. Cardiomegaly is noted. Th ere appear to be small pleural effusions. IMPRESSION: 1. OG tube in the stomach. Reviewed, dictated and finalized at location A. IMPRESSION: 1. OG tube in the stomach.
--- NOTE | ~2021-07-15 | CT_ITS ---
EXAMINATION: CT chest abdomen pelvis wo con DATE: 07/22/2021 12:56 INDICATION: Respiratory failure, anemia TECHNIQUE: Transaxial computed tomographic images of the chest, abdomen, and pelvis were obtained wit hout intravenous contrast. The dose-length product (DLP) was 1813.31 mGy-cm. Automated exposure contr ol and iterative reconstruction technique were employed. COMPARISON: 03/26/2015 FINDINGS: CHEST CT: The endotracheal tube is approximately 4.7 cm above the antoni. There are small to moderate-sized ple ural effusions with associated passive atelectasis. Widespread interstitial and airspace opacities ar e present. Cardiomegaly is noted. There are no definitely enlarged thoracic lymph nodes. There is amy cified coronary artery atherosclerosis. There is moderate thoracic spondylosis. ABDOMEN/PELVIS CT: Punctate calcifications in otherwise normal appearing liver and spleen likely represent healed granul omatous disease. Stones are present in the nondistended gallbladder. There is a stone near the neck o f the gallbladder. Streak artifact from the arms somewhat limits evaluation of the upper abdomen. The pancreas and adrenal glands appear normal. The kidneys appear unremarkable. There is calcified ather osclerosis of the aorta and many of the other arteries. No pathologically enlarged abdominal or pelvi c lymph nodes are identified. There is no free intraperitoneal gas or evidence of bowel obstruction. The bladder is decompressed by Staley catheter. The nasogastric tube is in the stomach. There is a mod erate volume of colonic stool. There is severe lumbar spondylosis. There is advanced osteoarthritis o f the left hip. Changes of right total hip arthroplasty are noted. IMPRESSION: 1. Cardiomegaly with pulmonary edema. 2. Small to moderate-sized pleural effusions with passive atelectasis. 3. No acute abnormality of the abdomen or pelvis identified. 4. Cholelithiasis. Reviewed, dictated and finalized at location A.
--- NOTE | ~2021-07-15 | XR_ITS ---
EXAMINATION: XR chest port-a-cath/central Exam Date/Time: 07/22/2021 17:30 CDT CLINICAL HISTORY: POST DIALYSIS CATH PLACEMENT Comparison: None available. RESULT: Lines, tubes, and devices: Endotracheal and nasogastric tubes remain in stable and good position. Ne w right IJ dialysis catheter, tip terminating in the right atrium. Lungs and pleura: Cephalization, increased patchy groundglass opacities, stable bibasilar airspace o pacities. Cardiomediastinal silhouette: Stable cardiomediastinal silhouette. Other: No acute osseous or upper abdominal finding. IMPRESSION: New right IJ dialysis catheter, in good position. Worsening pulmonary edema. Stable bibasilar atelect asis/consolidation. Reviewed, dictated and finalized at location K. IMPRESSION: New right IJ dialysis catheter, in good position. Worsening pulmonary edema. St able bibasilar atelectasis/consolidation.
--- NOTE | ~2021-07-15 | XR_ITS ---
EXAMINATION: XR chest ET placement INDICATION: Respiratory failure TECHNIQUE: Portable AP chest at 0938 hours COMPARISON: 04/20/2020 FINDINGS: The endotracheal tube ends approximately 2.8 cm above the antoni. The nasogastric tube is f ollowed as far as the stomach. Its tip is beyond the inferior margin of the radiograph. There is a mi ld diffuse interstitial pattern. Cardiomegaly is noted. There appear to be small pleural effusions. N o pneumothorax is identified. IMPRESSION: 1. Endotracheal tube approximately 2.8 cm above the antoni. 2. Cardiomegaly with mild pulmonary edema. 3. Probable small pleural effusions. Reviewed, dictated and finalized at location A.
--- NOTE | ~2021-07-15 | XR_ITS ---
EXAMINATION: XR fl guide central line place INDICATION: Port-A-Cath insertion TECHNIQUE: Three intraoperative fluoroscopic images are submitted for review. Total fluoroscopic time was 39.6 seconds. COMPARISON: None available FINDINGS: Fluoroscopic images demonstrate a large bore right internal jugular catheter ending with it s tip in the proximal right atrium. The catheter is kinked at the skin. Please refer to procedure not e for full details. IMPRESSION: 1. Right internal jugular catheter insertion, kinked at the skin. Reviewed, dictated and finalized at location A.
--- NOTE | 2021-07-15 18:25 | ECG_ITS ---
Measurements Intervals [place] Rate: 91 P: 71 ND: 146 QRS: -24 QRSD: 110 T: 115 QT: 390 QTc: 481 Interpretive Statements SINUS RHYTHM ATRIAL PREMATURE COMPLEXES LEFT VENTRICULAR HYPERTROPHY WITH ST-T CHANGE BORDERLINE ST-T WAVE ABNORMALITY- ANTEROLATERAL LEADS BORDERLINE ECG Electronically Signed On 07-15-2021 19:22:44 CDT by Ashutosh Jones D.O.
[2021-07-15] MEDS: SODIUM CHLORIDE 0.9% IV 1,000 ML 150 ML IV CONT (18:42)
[2021-07-15] MEDS: hydrALAZINE HCL 20 MG/ML VIAL 10 MG IV PUSH ×2 (19:19→20:46)
[2021-07-15 19:20] LABS: Basophils Percent Auto 0.4 % (0.2-1.2); Eosinophils Percent Auto 0.3 % (0-4.4); Hematocrit 27.1 % (37.0-47.0); Hemoglobin 8.1 g/dL (12.0-15.0); Immature Granulocyte Absolute 0.03 K/mm3 (0.00-0.031); Immature Granulocyte Percent A 0.4 % (0-0.5); Lymphocytes Absolute Auto 0.62 K/mm3 (0.9-3.2); Lymphocytes Percent Auto 8.6 % (18.3-44.2); Mean Corpuscular HGB Conc 29.9 g/dl (32-36); Mean Corpuscular Hemoglobin 30.3 pg (26-34); Mean Corpuscular Volume 101.5 fl (80-100); Mean Platelet Volume 9.7 fl (7.4-10.4); Monocytes Absolute Auto 0.4 K/mm3 (0.1-0.6); Monocytes Percent Auto 5.5 % (2.6-8.5); Neutrophils Absolute Auto 6.1 K/mm3 (1.3-6.7); Neutrophils Percent Auto 84.8 % (45.5-73.1); Platelet Count Result 301 k/mm3 (150-375); Red Blood Count 2.67 M/mm3 (4.2-5.4); Red Cell Distribution Width 13.4 % (11.5-14.5); White Blood Count 7.2 K/mm3 (4.5-10.0)
[2021-07-15 19:30] LABS: Alanine Aminotransferase 19 U/L (4-35); Albumin Level 3.8 g/dL (3.5-5.1); Alkaline Phosphatase 51 U/L (38-126); Anion Gap 7 mmol/L (8-16); Aspartate Amino Transferase 33 U/L (14-36); Bilirubin,Total 0.4 mg/dL (0.2-1.3); Blood Urea Nitrogen 54 mg/dL (7-17); Calcium 9.2 mg/dL (8.4-10.2); Carbon Dioxide 22 mmol/L (22-30); Chloride 112 mmol/L (98-107); Estimated CRCL calculation 10 ml/min; Estimated Glomerular Filt Rate 9; Glucose 179 mg/dL (65-110); Lipase 202 U/L (23-300); Potassium 5.3 mmol/L (3.4-5.0); Sodium 141 mmol/L (137-145)
[2021-07-15 19:31] LABS: Lactic Acid Reflex 1.4 mmol/L (0.7-2.0)
[2021-07-15 19:52] LABS: Appearance Urine Slightly Cloudy (Clear); Bilirubin Urine Negative (Negative); Blood Urine 1+ (Negative); Color Urine Yellow (Yellow); Glucose Urine UA Trace mg/dL (Negative); Ketones Urine Negative (Negative); Leukocyte Esterase Ur Negative LEU/UL (Negative); Nitrate Urine Negative (Negative); Protein Urine 3+ mg/dL (Negative); Urobilinogen Urine 0.2 mg/dL (<2.0); pH Urine 6.5 (5.0-9.0)
[2021-07-15 19:53] LABS: Hypochromasia 1+ (NORMAL); Platelet Estimate Adequate (Adequate)
--- NOTE | 2021-07-15 20:02 | ED.GENADULT ---
HPI - General Adult General Chief complaint: Nausea/Vomiting/Diarrhea Stated complaint: weakness, n/v Time Seen by Provider: 07/15/21 18:14 Source: patient Mode of arrival: EMS Limitations: no limitations History of Present Illness HPI narrative: 81-year-old with a history of hypertension diabetes, CKD, hyperlipidemia here with complaints of nausea, lack of appetite, not feeling well for past 1 week. She denies any chest pain or shortness of breath. No history of fever or chills. She denies abdominal pain. Onset (ago): week(s) (1) Severity: moderate Relieving factors: none Exacerbating factors: none Associated symptoms: denies other symptoms Related Data Home Medications Medication Instructions Recorded Confirmed aspirin 325 mg tablet 325 mg PO DAILY 01/30/19 12/23/20 cholecalciferol (vitamin D3) 50 mcg PO DAILY 07/05/19 12/23/20 [Vitamin D3] Lumigan 1 drp EACH EYE QPM 04/28/20 12/23/20 bumetanide 1 mg tablet 1 mg PO BID tablet 06/25/20 12/23/20 Allergies Allergy/AdvReac Type Severity Reaction Status Date / Time benazepril Allergy Unknown Swelling Verified 07/15/21 18:21 of Lip/Tongue/Throat lisinopril Allergy Unknown Anaphylaxis Verified 07/15/21 18:21 Review of Systems Review of Systems: All systems reviewed & are unremarkable except as noted in HPI and below Constitutional: Constitutional: Reports no additional constitutional complaints Eyes: Eyes: Reports no additional eye complaints ENT: Reports system reviewed and no additional complaints, except as documented Cardiovascular: Cardiovascular: Reports no additional cardiovascular complaints Respiratory: Respiratory: Reports no additional respiratory complaints Gastrointestinal: Gastrointestinal: Reports as per HPI Musculoskeletal: Musculoskeletal: Reports no additional musculoskeletal complaints Integumentary/Breasts: Skin/Breast: Reports system reviewed and no additional complaints, except as docu PMFSH Past Medical History Medical History Anemia Carotid artery disease CKD (chronic kidney disease) Congestive heart failure Essential (primary) hypertension 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or Type II diabetes mellitus with renal manifestations Surgical History Surgical History H/O cataract extraction History of bunionectomy of left great toe History of right hip replacement Presence of left artificial knee joint Presence of right artificial hip joint Presence of right artificial knee joint Family History Family History Mother Family history of diabetes mellitus in first degree relative Patient's mother is Acute myocardial infarction Diabetes mellitus Sibling Family history of sarcoidosis Family history of lupus erythematosus Father , age 49 MD Acute myocardial infarction Other Cerebrovascular accident Family history of arthritis Hypertension Social History Social History Social History: The patient has 9 children. Her daughter that lives in [place] is a durable power assistant county attorney for healthcare. The patient desires to be a full code. 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 She is . She used to smoke many years ago. No alcohol or illicit drugs. Smoking packs per day: 1 Smoking cigarettes per day: 20.0 Years smoked: 15 Smoking pack-years: 15.00 Smoking status: Former smoker Second hand tobacco smoke exposure: No Smoking end date: 06/13/79 Alcohol intake: never Substance use: never Substance use type: does not use Gender identity (if verbalized by the patient): Female S
[2021-07-15 20:07] LABS: Bacteria Urine Trace /hpf; Mucus Urine Rare /lpf; Squamous Epithelial Cell Urine Moderate /hpf (Few); WBC Urine 16-20 /hpf
[2021-07-15 20:08] LABS: Add Urine Microscopic? YES
[2021-07-15 20:49] LABS: SARS-CoV-2 RNA PCR Negative
[2021-07-15] MEDS: MORPHINE SULFATE (*CRX) 4 MG/ML INJ IV PUSH (20:59)
--- NOTE | 2021-07-15 22:30 | ADMGEN ---
This patient, Lilian Mandel, was admitted to IMU Room 209-01. Patient/family oriented to hospital policies and general routines including ID bracelet, bed and alarms, visiting hours, pain management, procedures, bathroom and other care routines, personal items, smoking policy, room service/diet, and visiting hours. Information on how to activate the Rapid Response Team has been discussed. Patient/Family are encouraged to report perceived risks to care and to ask questions if they do not understand what they are told or what they should do.
[2021-07-15] MEDS: ONDANSETRON INJ 4 MG/2 ML VIAL IV PUSH (23:02)
[2021-07-15] MEDS: ACETAMINOPHEN 325 MG TABLET 650 MG PO (23:03)
[2021-07-15] MEDS: SODIUM CHLORIDE 0.9% IV 1,000 ML 100 ML IV CONT (23:18)
[2021-07-16] VITALS (15 sets, daily range): BP systolic 118–180; BP diastolic 62–93; PULSE 72–99; RESP 14–20; TEMP 36.6–37.7; O2SAT 92–97
[2021-07-16 05:39] LABS: Basophils Percent Auto 0.4 % (0.2-1.2); Eosinophils Percent Auto 0.1 % (0-4.4); Hemoglobin 7.9 g/dL (12.0-15.0); Immature Granulocyte Percent A 1.4 % (0-0.5); Lymphocytes Absolute Auto 0.58 K/mm3 (0.9-3.2); Mean Corpuscular HGB Conc 28.2 g/dl (32-36); Mean Corpuscular Hemoglobin 30.9 pg (26-34); Mean Corpuscular Volume 109.4 fl (80-100); Mean Platelet Volume 10.6 fl (7.4-10.4); Monocytes Absolute Auto 0.5 K/mm3 (0.1-0.6); Monocytes Percent Auto 6.3 % (2.6-8.5); Neutrophils Absolute Auto 6.1 K/mm3 (1.3-6.7); Neutrophils Percent Auto 83.8 % (45.5-73.1); Platelet Count Result 260 k/mm3 (150-375); Red Blood Count 2.56 M/mm3 (4.2-5.4); White Blood Count 7.3 K/mm3 (4.5-10.0)
[2021-07-16 05:58] LABS: Anion Gap 10 mmol/L (8-16); Blood Urea Nitrogen 56 mg/dL (7-17); Calcium 8.5 mg/dL (8.4-10.2); Carbon Dioxide 18 mmol/L (22-30); Chloride 114 mmol/L (98-107); Estimated CRCL calculation 9 ml/min; Estimated Glomerular Filt Rate 10; Glucose 157 mg/dL (65-110); Potassium 5.5 mmol/L (3.4-5.0); Sodium 142 mmol/L (137-145)
[2021-07-16 06:55] LABS: Platelet Estimate Adequate (Adequate)
[2021-07-16 06:56] LABS: Burr Cells 1+ (NORMAL); Ovalocytes 1+ (NORMAL)
[2021-07-16 08:25] LABS: Glucose Point of Care 156 mg/dl (65-105)
[2021-07-16] MEDS: SODIUM CHLORIDE 0.9% IV 1,000 ML 75 ML IV CONT (08:32)
--- NOTE | 2021-07-16 10:30 | PM.CNNEP ---
Assessment and Plan Additional Plan 1. Katie he has chronic kidney disease. This is from diabetes and hypertension. Her baseline creatinine ranges between 4.5 and 5.5. She was instructed to see education about dialysis the last visit with Dr. Fulton in September. She missed the last visits in January and then another 1 in April. The patient has nausea vomiting and diarrhea. It is possible at the nausea could be uremic however diarrhea is not. Her creatinine is the same now as it was back in September. Will treat the GI issues and see how she does. If she does not get better than consider dialysis. 2. The patient has hypertension. Her blood pressure was very high when she came in but has come down to 149 with reinstitution of blood pressure pills. 3. The patient has diabetes. She is on Accu-Cheks and sliding-scale insulin per hospitalist. 4. The patient had high potassium. Will see how this does with fluids. 5. Bicarbonate level is only 18. Anion gap is only 11. This might be due to the diarrhea. Her bicarbonate level was not low back in September. Will give oral bicarb now. Will repeat this tomorrow. If it is not coming up will use IV bicarb. 6. The patient has pyuria. Urine culture is pending. 7. The patient has GERD. She is on pantoprazole. History of Present Illness Reason for Consult Consult date: 07/16/21 Chief Complaint Chief complaint: Uncontrolled HTN, Nausea, CKD History of Present Illness Narrative: Lilian is a very pleasant 81-year-old lady who has multiple medical problems including hypertension, congestive heart failure, carotid artery disease, hypothyroidism, sleep apnea, diabetes, and chronic kidney disease. She sees Dr. Fulton in the office to follow for this. The patient has been feeling okay until about a week ago when she lost her appetite and developed some nausea. She then developed vomiting and diarrhea. She has not been eating very well because of her appetite and also because of the nausea. There has been no blood associated with the diarrhea or vomiting. She has had no fevers or chills. No sick contacts. The patient came to the emergency room. Generally her creatinine runs anywhere from about 2.7 to about 3.5. However in the ER her creatinine was 5.6. She is felt to be dehydrated and received some IV fluids overnight. Her creatinine fell to 4.9 today. Renal consultation was requested she does not have any bloody urine foamy urine kidney stones or bladder infections. In the past she has had an echocardiogram which showed 50 to see 55% ejection fraction, diastolic dysfunction, mild pulmonary hypertension. Review of Systems Constitutional: Constitutional: Reports no additional constitutional complaints Eyes: Eyes: Reports no additional eye complaints ENT: Reports system reviewed and no additional complaints, except as documented Cardiovascular: Cardiovascular: Reports no additional cardiovascular complaints Respiratory: Respiratory: Reports no additional respiratory complaints Gastrointestinal: Gastrointestinal: Reports no additional gastrointestinal complaints Genitourinary: Genitourinary: Reports no additional female genitourinary complaints Musculoskeletal: Musculoskeletal: Reports no additional musculoskeletal complaints Integumentary/Breasts: Skin/Breast: Reports system reviewed and no additional complaints, except as docu Neurologic: Reports system reviewed and no additional complaints, except as documented Psychiatric: Psychiatric: Reports no additional psychiatric complaints Endocrine: Endocrine: Reports no additional endocrine complaints [facility] Past Medical History Medical History (Updated 07/16/21 @ 10:58 by Mavis Fox MD) Anemia Carotid artery disease Congestive heart failure Essential (primary) hypertension Hypothyroidism, unspecified Obstructive sleep apnea Screening mammogram, encounter for Type II diabetes mellitu
--- NOTE | 2021-07-16 10:48 | PM.IMHP ---
H&P: HPI History of Present Illness Date/Time: 07/16/21 10:48 81-year-old female presented to the emergency room after her daughter noticed she become increasingly weak and was unable to get up from her chair. Patient states that she has had about a 1 week of vomiting but approximately 2 weeks of feeling unwell increased fatigue and weakness. Vomiting was described as non bloody non bilious. Was accompanied with decreased appetite and intermittent headache 3-4 times. She denies chest pain or shortness of breath or Vision changes or dizziness. Patient was noted to have elevated blood pressure in ER and elevated creatinine from her baseline; her admission was requested. She is a diabetic but does not check her blood glucose regularly and is not on insulin. 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 Chief Complaint: profound weakness Review of Systems Review of Systems: All systems reviewed & are unremarkable except as noted in HPI and below PMFSH Past Medical History Medical History Anemia Atherosclerotic heart disease of [place] coronary artery without angina pectoris Carotid artery disease CHF exacerbation Congestive heart failure Essential (primary) hypertension Hypothyroidism, unspecified Nausea Obstructive sleep apnea Primary generalized (osteo)arthritis Screening mammogram, encounter for Type II diabetes mellitus with renal manifestations Surgical History Surgical History H/O cataract extraction History of bunionectomy of left great toe History of right hip replacement Presence of left artificial knee joint Presence of right artificial hip joint Presence of right artificial knee joint Family History Family History Mother Family history of diabetes mellitus in first degree relative Patient's mother is Acute myocardial infarction Diabetes mellitus Sibling Family history of sarcoidosis Family history of lupus erythematosus Father , age 49 [place] Acute myocardial infarction Other Cerebrovascular accident Family history of arthritis Hypertension Social History Social History Social History: The patient has 9 children. Her daughter that lives in [place] is a durable power trial attorney for healthcare. The patient desires to be a full code. 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 She is . She used to smoke many years ago. No alcohol or illicit drugs. Smoking packs per day: 1 Smoking cigarettes per day: 20.0 Years smoked: 15 Smoking pack-years: 15.00 Smoking status: Former smoker Second hand tobacco smoke exposure: No Smoking end date: 06/13/79 Alcohol intake: never Substance use: never Substance use type: does not use Gender identity (if verbalized by the patient): Female Spiritual care concerns: No Agree to blood products: Yes Meds Home Medications and Allergies Home Medications Medication Instructions Recorded Confirmed Type aspirin 325 mg tablet 325 mg PO DAILY 01/30/19 07/15/21 History cholecalciferol (vitamin D3) 50 mcg PO DAILY 07/05/19 07/15/21 History [Vitamin D3] Lumigan 1 drp EACH EYE QPM 04/28/20 07/15/21 History carvedilol [Coreg] 25 mg PO Q12HR #60 tablet 05/03/20 07/15/21 Rx bumetanide 1 mg tablet 1 mg PO BID tablet 06/25/20 07/15/21 History sitagliptin 25 mg tablet 25 mg PO DAILY #90 tablet 09/01/20 07/15/21 Rx atorvastatin 20 mg tablet 20 mg PO DAILY #90 tablet 09/16/20 07/15/21 Rx omeprazole 40 mg capsule,delayed 40 mg PO DAILY #90 cap 11/05/20 07/15/21 Rx release levothyroxine 50 mcg tablet 50 mcg PO 0600 #90 tablet 12/23/20 07/15/21 Rx hydralazine 25 mg tablet 50 mg PO Q6H #360 tablet 02/02/21
[2021-07-16 11:52] LABS: Glucose Point of Care 204 mg/dl (65-105)
[2021-07-16] MEDS: INSULIN ASPART (*BKC) 100 UNITS/ML SUB-Q (12:52)
[2021-07-16] MEDS: ATORVASTATIN 20 MG TABLET PO (12:53)
[2021-07-16] MEDS: CHOLECALCIFEROL 1,000 UNITS TABLET 2000 UNITS PO (13:00)
[2021-07-16] MEDS: hydrALAZINE HCL 50 MG TABLET PO ×2 (13:00→18:28)
[2021-07-16 16:34] LABS: Glucose Point of Care 97 mg/dl (65-105)
[2021-07-16] MEDS: SODIUM BICARBONATE TAB 650 MG TABLET 1300 MG PO (16:56)
[2021-07-16] MEDS: calcitrioL 0.25 MCG CAPSULE PO (16:57)
[2021-07-16] MEDS: LATANOPROST 0.005% OP SOLN 2.5 ML BTL 1 DROP EACH EYE (18:28)
[2021-07-16] MEDS: carvediloL 25 MG TABLET PO (20:13)
[2021-07-16 20:41] LABS: Glucose Point of Care 175 mg/dl (65-105)
[2021-07-17] VITALS (18 sets, daily range): BP systolic 108–135; BP diastolic 49–83; PULSE 54–64; RESP 15–20; TEMP 36.3–37.4; O2SAT 93–98
[2021-07-17] MEDS: hydrALAZINE HCL 50 MG TABLET PO ×4 (00:10→17:15)
[2021-07-17] MEDS: SODIUM CHLORIDE 0.9% IV 1,000 ML 75 ML IV CONT ×2 (00:15→11:42)
[2021-07-17] MEDS: ACETAMINOPHEN 325 MG TABLET 650 MG PO ×3 (00:15→16:17)
[2021-07-17 07:24] LABS: Glucose Point of Care 151 mg/dl (65-105)
[2021-07-17] MEDS: ATORVASTATIN 20 MG TABLET PO (08:03)
[2021-07-17] MEDS: SODIUM BICARBONATE TAB 650 MG TABLET 1300 MG PO ×2 (08:03→17:15)
[2021-07-17] MEDS: LEVOTHYROXINE SODIUM 50 MCG TABLET PO (08:03)
[2021-07-17] MEDS: calcitrioL 0.25 MCG CAPSULE PO ×2 (08:04→17:15)
[2021-07-17] MEDS: CHOLECALCIFEROL 1,000 UNITS TABLET 2000 UNITS PO (08:05)
[2021-07-17] MEDS: carvediloL 25 MG TABLET PO ×2 (08:05→20:43)
[2021-07-17] MEDS: PANTOPRAZOLE 40 MG TABLET PO ×2 (08:05→17:16)
[2021-07-17 08:33] LABS: Albumin Level 3.2 g/dL (3.5-5.1); Anion Gap 6 mmol/L (8-16); Blood Urea Nitrogen 65 mg/dL (7-17); Calcium 8.2 mg/dL (8.4-10.2); Carbon Dioxide 21 mmol/L (22-30); Chloride 111 mmol/L (98-107); Estimated CRCL calculation 8 ml/min; Estimated Glomerular Filt Rate 8; Glucose 140 mg/dL (65-110); Phosphorus 6.1 mg/dL (2.5-4.5); Sodium 138 mmol/L (137-145)
[2021-07-17] MEDS: SODIUM ZIRCONIUM CYCLOSILICATE 10 GM POWD.PACK PO (09:45)
--- NOTE | 2021-07-17 10:06 | PM.IMPN ---
Progress Note: A&P Assessment and Plan (1) Nausea: Code(s): R11.0 - Nausea Status: Acute (2) Uncontrolled hypertension: Code(s): I10 - Essential (primary) hypertension Status: Acute (3) Obstructive sleep apnea: Code(s): G47.33 - Obstructive sleep apnea (adult) (pediatric) Status: Chronic (4) CKD (chronic kidney disease) stage 4, GFR 15-29 ml/min: Code(s): N18.4 - Chronic kidney disease, stage 4 (severe) Status: Acute (5) CORY (acute kidney injury): Code(s): N17.9 - Acute kidney failure, unspecified Status: Acute Additional Plan 81yo F w CKD4-5 admitted w HTN Urgency and CORY on CKD. admit to tele stepdown c/s nephro cont home meds avoid nephrotoxins NS 75cc/hr Rocephin until UCx results ISS low dose 07/17/21 K 6.0 lokelma 10mg x 1 c/s surg Dr Evans for HD line Ucx negative Rocephin discontinued cont current care Subjective Date/time seen: 07/17/21 10:06 worsening renal function. Pt has spoken w nephrology and is in agreement to start HD Exam Narrative: GEN: NAD, AAOx3, cooperative HEENT: NCAT, MMM, EOMI Neck: no JVD Heart: S1S2 RRR Lungs: CTA B/l Abd: soft, NT, ND, bowel sounds normoactive Ext: moves all, no cyanosis, no clubbing Neuro: cognition WNL, moves all extremities equally, CN intact Psych: mood and affect congruent pt upset but polite Objective Data Vital Signs Vital Signs: Vital Signs - 24 hr 07/16/21 12:00 07/16/21 14:00 07/16/21 16:00 Temperature 98.4 F 99.6 F Pulse Rate 87 95 83 Respiratory Rate 18 14 Blood Pressure 144/82 H 139/93 H Pulse Oximetry 92 96 07/16/21 18:00 07/16/21 19:51 07/16/21 20:00 Temperature 99.9 F H Pulse Rate 88 83 84 Respiratory Rate 16 Blood Pressure 118/62 Pulse Oximetry 94 07/16/21 20:13 07/16/21 22:00 07/17/21 00:00 Temperature 99.4 F Pulse Rate 84 72 60 Respiratory Rate 16 Blood Pressure 108/51 L Pulse Oximetry 95 07/17/21 02:00 07/17/21 04:00 07/17/21 06:00 Temperature 98.5 F Pulse Rate 57 L 58 L 56 L Respiratory Rate 16 Blood Pressure 113/54 L Pulse Oximetry 98 07/17/21 07:58 07/17/21 08:00 07/17/21 08:05 Temperature 98.4 F Pulse Rate 63 58 L 62 Respiratory Rate 20 Blood Pressure 109/54 L Pulse Oximetry 94 07/17/21 10:00 Temperature Pulse Rate 56 L Respiratory Rate Blood Pressure Pulse Oximetry Intake/Output Intake/Output: Intake & Output 07/14/21 07/15/21 07/16/21 07/17/21 23:59 23:59 23:59 23:59 Intake Total 3280 300 Output Total 400 Balance 2880 300 Meds/Results Medications: Active Medications Generic Name Dose Route Start Last Admin Trade Name Freq PRN Reason Stop Dose Admin Acetaminophen 650 mg 07/15/21 20:46 07/17/21 00:15 Acetaminophen 325 Mg Tablet PO 650 mg Q4H PRN Administration Mild Pain (1-3) or Fever Atorvastatin Calcium 20 mg 07/16/21 11:05 07/17/21 08:03 Atorvastatin 20 Mg Tablet PO 20 mg DAILY EVAN Administration Calcitriol 0.25 mcg 07/16/21 17:00 07/17/21 08:04 Calcitriol 0.25 Mcg Capsule PO 0.25 mcg BID EVAN Administration Carvedilol 25 mg 07/16/21 21:00 07/17/21 08:05 Carvedilol 25 Mg Tablet PO 25 mg Q12HR EVAN Administration Dextrose 12.5 gm 07/16/21 11:00 Dextrose 50% 25 Gm/50 Ml Syringe IV PUSH PRN PRN Hypoglycemia Protocol Glucagon 1 mg 07/16/21 11:00 Glucagon For Inj 1 Mg Vial IM PRN PRN Hypoglycemia Protocol Glucose 15 gm 07/16/21 11:00 Glucose Oral Gel 15 Gm Of Glucse In 37.5 Gm Tube PO PRN PRN Hypoglycemia Protocol Hydralazine HCl 50 mg 07/16/21 12:00 07/17/21 05:34 Hydralazine Hcl 50 Mg Tablet PO 50 mg Q6HR EVAN Administration Sodium Chloride 1,000 mls @ 75 mls/hr 07/15/21 20:50 07/17/21 00:15 Normal Saline Iv IV CONT 75 mls/hr .[id number] EVAN Administration Dextrose 1,000 mls @ 100 mls/hr 07/16/21 11:00
--- NOTE | 2021-07-17 10:37 | PM.PNNEP ---
Progress Note: A&P Additional Plan 1. Katie he has chronic kidney disease. This is from diabetes and hypertension. Her baseline creatinine ranges between 4.5 and 5.5. Now her creatinine is up to 6.1. Her potassium is 6.1. The patient did see education but did not really think about whether she wanted to do incenter or home dialysis. Because her numbers are getting worse I think with to go ahead and initiate dialysis. The patient is fine with this. I discussed the risks, benefits, alternatives, and process of dialysis and the patient agrees to proceed. Will consult surgery to place a dialysis catheter 2. The patient has hypertension. Her blood pressure was very high when she came in. Now the blood pressure is under good control 3. The patient has diabetes. She is on Accu-Cheks and sliding-scale insulin per hospitalist. 4. The patient had high potassium. This is worse. Will give Lokelma. 5. Bicarbonate level is only 18. Bicarb is improved. 6. The patient has pyuria. Urine culture is pending. 7. The patient has GERD. She is on pantoprazole. Subjective Date/time seen: 07/17/21 10:37 Interval history: Kaite he is feeling about the same. Still poor appetite. Still intermittent nausea. Review of Systems Cardiovascular: Cardiovascular: Reports no additional cardiovascular complaints Respiratory: Respiratory: Reports no additional respiratory complaints Gastrointestinal: Gastrointestinal: Reports no additional gastrointestinal complaints Genitourinary: Genitourinary: Reports no additional female genitourinary complaints Exam Narrative: WDWN in NAD skin no rash head ncat lungs clear cor reg no rub abd BS+ nontender and soft ext no edema. Objective Data Vital Signs Vital Signs: Vital Signs - 24 hr 07/16/21 12:00 07/16/21 14:00 07/16/21 16:00 Temperature 36.9 C 37.6 C Pulse Rate 87 95 83 Respiratory Rate 18 14 Blood Pressure 144/82 H 139/93 H Pulse Oximetry 92 96 07/16/21 18:00 07/16/21 19:51 07/16/21 20:00 Temperature 37.7 C H Pulse Rate 88 83 84 Respiratory Rate 16 Blood Pressure 118/62 Pulse Oximetry 94 07/16/21 20:13 07/16/21 22:00 07/17/21 00:00 Temperature 37.4 C Pulse Rate 84 72 60 Respiratory Rate 16 Blood Pressure 108/51 L Pulse Oximetry 95 07/17/21 02:00 07/17/21 04:00 07/17/21 06:00 Temperature 36.9 C Pulse Rate 57 L 58 L 56 L Respiratory Rate 16 Blood Pressure 113/54 L Pulse Oximetry 98 07/17/21 07:58 07/17/21 08:00 07/17/21 08:05 Temperature 36.9 C Pulse Rate 63 58 L 62 Respiratory Rate 20 Blood Pressure 109/54 L Pulse Oximetry 94 07/17/21 10:00 Temperature Pulse Rate 56 L Respiratory Rate Blood Pressure Pulse Oximetry Intake/Output Intake/Output: Intake & Output 07/14/21 07/15/21 07/16/21 07/17/21 23:59 23:59 23:59 23:59 Intake Total 3280 540 Output Total 400 Balance 2880 540 Meds/Results Medications: Active Medications Generic Name Dose Route Start Last Admin Trade Name Freq PRN Reason Stop Dose Admin Acetaminophen 650 mg 07/15/21 20:46 07/17/21 00:15 Acetaminophen 325 Mg Tablet PO 650 mg Q4H PRN Administration Mild Pain (1-3) or Fever Atorvastatin Calcium 20 mg 07/16/21 11:05 07/17/21 08:03 Atorvastatin 20 Mg Tablet PO 20 mg DAILY EVAN Administration Calcitriol 0.25 mcg 07/16/21 17:00 07/17/21 08:04 Calcitriol 0.25 Mcg Capsule PO 0.25 mcg BID EVAN Administration Carvedilol 25 mg 07/16/21 21:00 07/17/21 08:05 Carvedilol 25 Mg Tablet PO 25 mg Q12HR EVAN Administration Dextrose 12.5 gm 07/16/21 11:00 Dextrose 50% 25 Gm/50 Ml Syringe IV PUSH PRN PRN Hypoglycemia Protocol Glucagon 1 mg 07/16/21 11:00 Glucagon For Inj 1 Mg Vial IM PRN PRN Hypoglycemia Protocol Glucose 15 gm 07/16/21 11:00 Glucose Oral Gel 15 Gm Of Glucse In 37.5 Gm Tube PO PRN PRN H
[2021-07-17 11:15] LABS: Glucose Point of Care 149 mg/dl (65-105)
[2021-07-17 11:38] LABS: Hepatitis B Surface Antigen Negative (Negative)
[2021-07-17 11:52] LABS: Hepatitis C Virus Antibody Negative (Negative)
[2021-07-17 11:57] LABS: Hepatitis B Surface Anti Res Positive
[2021-07-17 14:34] LABS: INR 1.2; Prothrombin Time 14.5 Seconds (11.1-14.7)
[2021-07-17 14:35] LABS: Partial Thromboplastin Time 28.2 SECONDS (22.3-36.8)
[2021-07-17 16:38] LABS: Glucose Point of Care 117 mg/dl (65-105)
[2021-07-17] MEDS: LATANOPROST 0.005% OP SOLN 2.5 ML BTL 1 DROP EACH EYE (17:16)
[2021-07-17 20:29] LABS: Glucose Point of Care 161 mg/dl (65-105)
[2021-07-18] VITALS (33 sets, daily range): BP systolic 93–199; BP diastolic 40–120; PULSE 18–63; RESP 18–24; TEMP 35.7–37.3; O2SAT 96–100
[2021-07-18] MEDS: hydrALAZINE HCL 50 MG TABLET PO ×3 (00:33→06:36)
[2021-07-18] MEDS: SODIUM CHLORIDE 0.9% IV 1,000 ML 75 ML IV CONT (02:06)
[2021-07-18 05:28] LABS: Hematocrit 24.4 % (37.0-47.0); Mean Corpuscular HGB Conc 28.7 g/dl (32-36); Mean Corpuscular Hemoglobin 30.3 pg (26-34); Mean Corpuscular Volume 105.6 fl (80-100); Mean Platelet Volume 9.8 fl (7.4-10.4); Platelet Count Result 203 k/mm3 (150-375); Red Blood Count 2.31 M/mm3 (4.2-5.4); Red Cell Distribution Width 13.8 % (11.5-14.5); White Blood Count 6.1 K/mm3 (4.5-10.0)
[2021-07-18 05:39] LABS: Albumin Level 2.8 g/dL (3.5-5.1); Anion Gap 5 mmol/L (8-16); Blood Urea Nitrogen 66 mg/dL (7-17); Calcium 7.7 mg/dL (8.4-10.2); Carbon Dioxide 19 mmol/L (22-30); Chloride 113 mmol/L (98-107); Estimated CRCL calculation 8 ml/min; Estimated Glomerular Filt Rate 8; Glucose 112 mg/dL (65-110); Phosphorus 5.9 mg/dL (2.5-4.5); Sodium 137 mmol/L (137-145)
[2021-07-18] MEDS: LEVOTHYROXINE SODIUM 50 MCG TABLET PO (06:36)
[2021-07-18 07:21] LABS: Glucose Point of Care 116 mg/dl (65-105)
--- NOTE | 2021-07-18 07:26 | WPDANESEPP ---
Anes - Eval Pre Procedure Procedure: Operation Date: 07/18/21 07:30 Proposed Procedures p Insertion Duraflow Catheter - Joaquin Evans MD Date/Time: 07/18/21 07:26 Pre Op Diagnosis: Uncontrolled HTN, Nausea, CKD Patient Data Age: 81 Gender: F Height: 1.68 m Weight: 96.3 kg Last Vital Signs Temp 99.2 F 07/18/21 04:00 Pulse 59 L 07/18/21 06:00 Resp 18 07/18/21 04:00 BP 149/59 H 07/18/21 04:00 Pulse Ox 96 07/18/21 04:00 Allergies Allergy/AdvReac Type Severity Reaction Status Date / Time benazepril Allergy Unknown Swelling Verified 07/15/21 18:21 of Lip/Tongue/Throat lisinopril Allergy Unknown Anaphylaxis Verified 07/15/21 18:21 Home Medications Medication Instructions Recorded Confirmed Type aspirin 325 mg tablet 325 mg PO DAILY 01/30/19 07/15/21 History cholecalciferol (vitamin D3) 50 mcg PO DAILY 07/05/19 07/15/21 History [Vitamin D3] Lumigan 1 drp EACH EYE QPM 04/28/20 07/15/21 History carvedilol [Coreg] 25 mg PO Q12HR #60 tablet 05/03/20 07/15/21 Rx bumetanide 1 mg tablet 1 mg PO BID tablet 06/25/20 07/15/21 History sitagliptin 25 mg tablet 25 mg PO DAILY #90 tablet 09/01/20 07/15/21 Rx atorvastatin 20 mg tablet 20 mg PO DAILY #90 tablet 09/16/20 07/15/21 Rx omeprazole 40 mg capsule,delayed 40 mg PO DAILY #90 cap 11/05/20 07/15/21 Rx release levothyroxine 50 mcg tablet 50 mcg PO 0600 #90 tablet 12/23/20 07/15/21 Rx hydralazine 25 mg tablet 50 mg PO Q6H #360 tablet 02/02/21 07/15/21 Rx calcitriol 0.25 mcg PO BID 07/15/21 07/15/21 History Laboratory Tests 07/17/21 07/17/21 07/17/21 08:05 08:05 08:05 WBC RBC Hgb Hct MCV MCH MCHC RDW Plt Count MPV PT INR APTT Sodium 138 mmol/L mmol/L (137-145) Potassium 6.0 mmol/L H* mmol/L (3.4-5.0) Chloride 111 mmol/L H mmol/L (98-107) Carbon Dioxide 21 mmol/L L mmol/L (22-30) Anion Gap 6 mmol/L L mmol/L (8-16) BUN 65 mg/dL H mg/dL (7-17) Creatinine 6.10 mg/dL H mg/dL (0.7-1.0) Estim Creat Clear Calc 8 ml/min ml/min Estimated GFR 8 L (59 - ) Glucose 140 mg/dL H mg/dL (65-110) POC Capillary Glucose Calcium 8.2 mg/dL L mg/dL (8.4-10.2) Phosphorus 6.1 mg/dL H mg/dL (2.5-4.5) Albumin 3.2 g/dL L g/dL (3.5-5.1) Hep Bs Antigen Negative (Negative) Hep Bs Antibody Positive Hep B Core Total Ab Hepatitis C Ab Screen Negative (Negative) Blood Type Antibody Screen 07/17/21 07/17/21 07/17/21 10:40 11:12 14:02 WBC RBC Hgb Hct MCV MCH MCHC RDW Plt Count MPV PT INR APTT Sodium Potassium Chloride Carbon Dioxide Anion Gap BUN Creatinine Estim Creat Clear Calc Estimated GFR Glucose POC Capillary Glucose 149 mg/dl H mg/dl (65-105) Calcium Phosphorus Albumin Hep Bs Antigen Hep Bs Antibody Hep B Core Total Ab Pending Hepatitis C Ab Screen Blood Type B Positive Antibody Screen Negative 07/17/21 07/17/21 07/17/21 14:02 16:26 19:58 WBC RBC Hgb Hct MCV MCH MCHC RDW Plt Count MPV PT 14.5 Seconds Seconds (11.1-14.7) INR 1.2 APTT 28.2 SECONDS SECONDS (22.3-36.8) Sodium
--- NOTE | 2021-07-18 07:34 | WPDHPUPDATE1 ---
History and Physical Update Update Date/Time: 07/18/21 07:34 History and Physical has been reviewed, including an updated exam of the patient. There are NO changes in the patient's condition. Risks, benefits, and alternatives a of placement of a tunneled dialysis catheter have been discussed and questions answered. Patient agrees to proceed with procedure.
[2021-07-18] MEDS: ceFAZolin 2 GM/D5W 50 ML 2 GM/50 ML BAG IVPB (07:39)
--- NOTE | 2021-07-18 08:05 | PM.IMPN ---
Progress Note: A&P Assessment and Plan (1) Nausea: Code(s): R11.0 - Nausea Status: Acute (2) Uncontrolled hypertension: Code(s): I10 - Essential (primary) hypertension Status: Acute (3) Obstructive sleep apnea: Code(s): G47.33 - Obstructive sleep apnea (adult) (pediatric) Status: Chronic (4) CKD (chronic kidney disease) stage 4, GFR 15-29 ml/min: Code(s): N18.4 - Chronic kidney disease, stage 4 (severe) Status: Acute (5) CORY (acute kidney injury): Code(s): N17.9 - Acute kidney failure, unspecified Status: Acute (6) Acute respiratory failure: Code(s): J96.00 - Acute respiratory failure, unspecified whether with hypoxia or hypercapnia Status: Acute (7) Acute worsening of stage 4 chronic kidney disease: Code(s): N18.4 - Chronic kidney disease, stage 4 (severe) Status: Acute (8) Cardiac arrest: Code(s): I46.9 - Cardiac arrest, cause unspecified Status: Acute (9) Hypothyroidism, unspecified: Qualifiers: Hypothyroidism type: acquired Qualified Code(s): E03.9 - Hypothyroidism, unspecified Code(s): E03.9 - Hypothyroidism, unspecified Status: Chronic (10) Mixed hyperlipidemia: Code(s): E78.2 - Mixed hyperlipidemia Status: Acute (11) Essential (primary) hypertension: Code(s): I10 - Essential (primary) hypertension Status: Chronic (12) Congestive heart failure: Qualifiers: Heart failure chronicity: acute on chronic Heart failure type: diastolic Qualified Code(s): I50.33 - Acute on chronic diastolic (congestive) heart failure Code(s): I50.9 - Heart failure, unspecified Status: Chronic Additional Plan 81yo F w CKD4-5 admitted w HTN Urgency and CORY on CKD. admit to tele stepdown c/s nephro cont home meds avoid nephrotoxins NS 75cc/hr Rocephin until UCx results ISS low dose 07/17/21 K 6.0 lokelma 10mg x 1 c/s surg Dr Evans for HD line Ucx negative Rocephin discontinued cont current care 07/18/21 transfer to ICU vent management per animal tech HD per nephro timing of extubation per animal tech c/s cc c/s nephro c/s surg Subjective Date/time seen: 07/18/21 08:05 pt taken down to TDC today had Cardiac arrest in OR, ROSC achieved and pt transferred to ICU intubated in critical but stable condition. daughter of pt informed pt is seen in ICU 5 sedated comfortable without distress Exam Narrative: GEN: NAD, sedated intubated HEENT: NCAT, ETT present Neck: no JVD Heart: S1S2 bradycardia Lungs: symmetric chest rise Abd: soft, ND Ext: R femoral line for HD no cyanosis, no clubbing Neuro: does not follow commands reflexes intact Objective Data Vital Signs Vital Signs: Vital Signs - 24 hr 07/17/21 10:00 07/17/21 11:56 07/17/21 12:00 Temperature 97.4 F L Pulse Rate 56 L 55 L 54 L Respiratory Rate 15 Blood Pressure 119/51 L Pulse Oximetry 94 07/17/21 14:00 07/17/21 16:00 07/17/21 18:00 Temperature 98.2 F Pulse Rate 59 L 59 L 63 Respiratory Rate 20 Blood Pressure 135/57 L Pulse Oximetry 94 07/17/21 20:00 07/17/21 20:12 07/17/21 20:43 Temperature 98.3 F Pulse Rate 61 61 Respiratory Rate 16 Blood Pressure 114/49 L Pulse Oximetry 93 94 07/17/21 22:00 07/17/21 23:44 07/18/21 00:00 Temperature 98.7 F Pulse Rate 59 L 56 L 56 L Respiratory Rate 16 Blood Pressure 122/83 Pulse Oximetry 96 96 07/18/21 02:00 07/18/21 04:00 07/18/21 06:00 Temperature 99.2 F Pulse Rate 55 L 57 L 59 L Respiratory Rate 18 Blood Pressure 149/59 H Pulse Oximetry 96 07/18/21 07:29 Temperature 98.4 F Pulse Rate 62 Respiratory Rate 24 H Blood Pressure 137/40 L Pulse Oximetry 100 Intake/Output Intake/Output: Intake & Output 07/15/21 07/16/21 07/17/21 07/18/21 23:59 23:59 23:59 23:59 Intake Total 3280 1740 1400 Output Total 400 Balance 2880 1740 1400 Meds
[2021-07-18] MEDS: HEPARIN SODIUM 1,000 UNITS/ML VIAL 1000 UNITS IV PUSH (08:10)
[2021-07-18] MEDS: HEPARIN SODIUM, PORCINE 10,000 UNITS/10 ML VIAL 10000 UNITS IRRIGATION (08:12)
--- NOTE | 2021-07-18 09:15 | PC.NURSE ---
This patient, Lilian Mandel, was transferred to ICU 5 on 07/18/21 at 0915. Personal belongings sent with patient. Bedside report given to Alex SHRESTHA. Appropriate documentation sent with patient.
--- NOTE | 2021-07-18 09:16 | ECG_ITS ---
Measurements Intervals [place] Rate: 48 P: 83 VA: 162 QRS: -33 QRSD: 107 T: -63 QT: 507 QTc: 457 Interpretive Statements SINUS BRADYCARDIA LEFT AXIS DEVIATION POSSIBLE LEFT ATRIAL ENLARGEMENT DELAYED PRECORDIAL R/S TRANSITION T WAVE ABNORMALITY IN ANTERIOR LEADS- CONSIDER ISCHEMIA BASELINE ARTIFACT- I, III, AVL, V5 ABNORMAL ECG Electronically Signed On 07-18-2021 12:36:07 CDT by Ashutosh Jones D.O.
[2021-07-18] MEDS: MIDAZOLAM HCL (*CRX) 2 MG/2 ML VIAL 1 MG IV PUSH ×3 (09:20→14:05)
--- NOTE | 2021-07-18 09:28 | WPDANESEFPP ---
Anes - Eval Final PreProcedure Day of Procedure 07/18/21 07:30 Patient weight: obese Heart: regular rate and rhythm Lungs: clear to auscultation and normal air movement Airway: Mallampati scale class II Neurological: alert and oriented Last oral intake: >/= 8 hours ASA classification: IV Emergent: no Anesthetic plan: proceed Anesthesia type and monitoring: general GIVS and standard monitoring Results Review: All pre-operative results and documents have been reviewed as part of the pre-operative evaluation. Informed Consent: The patient's anesthetic plan and its attendant risks and benefits were discussed with the patient/family/POA. Questions were solicited and answers provided to the satisfaction of the patient/family/POA.
--- NOTE | 2021-07-18 09:29 | PDCODEBLUE ---
Code Robert Note Code Blue Note Time Arrived at Code Blue: 08 Result of [place]ae [place]: Pt transferred to ICU Code Blue Summary: Patient was given 50 mg propofol in total during attempted placement of tunneled dialysis catheter. Patient tolerated anesthetic however during carotid manipulation in prepation of venous access, it was noted that pulse dropped to 29. Two doses of 0.2 glycopyrrolate, two doses of 0.4 mg of atropine and two doses of 20 mcg of epinephrine given, with no movement in pulse from 29 and remaining hypotension. At this time transcutaneous pacing was initiated. During gradual increase in mAmp, at around 80 mAmp there was still no capture and it did not appear that there was any underlying rhythm. Pacing was paused and patient was found to be in asystole. Compressions started at 0828. At 0829, patient was intubated and 1 mg of epinephrine given. Jenae lake was called overhead for additional assistance. At 0832 rhythm was restored. At this time the right groin was prepped and draped and a central line was placed by Dr. Evans. Patient transported to ICU in stable condition.
[2021-07-18 09:45] LABS: Glucose Point of Care 169 mg/dl (65-105)
--- NOTE | 2021-07-18 09:50 | W.PM.PROC2 ---
Procedure Note - Detailed Date of Procedure 07/21/21 Pre-op Diagnosis Uncontrolled HTN, Nausea, CKD Post-op Diagnosis Same Procedure Performed 1. placement percutaneous dialysis catheter with pigtail right femoral vein Surgeon Joaquin Evans MD [employer] Electric[employer] Amber SHRESTHA,OR assistant press operator Anesthesia Local ( 2 5% Xylocaine with epi.) and Other ( G IV S) Indications The patient has worsening renal failure Nephrology recommended hemodialysis. Findings Normal venous anatomy in the jugular area Normal venous anatomy in the right femoral artery/vein area in right groin Description of Procedure After obtaining appropriate written consent for central line placement, time-out was performed and we placed the patient in the supine position with the head flat on the OR bed. (original procedure intended was a tunneled central line at the jugular level for dialysis). Everything was done in the usual manner including prepping the upper chest and neck and it was draped. I marked my proposed site of incision and access to the right jugular vein on the right neck. At this time the patient had an LMA in place for anesthesia and was sedated. Local anesthetic using 2% xylocaine with epinephrine was infiltrated into the area of proposed needlestick to obtain vascular access. As I was imaging with the ultrasound probe to select a site for vascular access entry the patient's heart rate dropped to 29 and we stopped and concentrated on the patient's vitals. (see Anesthesia notes). Since the patient had continuing bradycardia and required a short time period of chest compressions and multiple medications to bring her back to an appropriate level for pulse and blood pressure we aborted any plans for a tunneled dialysis catheter and because the patient had only a peripheral IV it was felt appropriate to plan a femoral central line. Since she would need dialysis to help with all this we decided on placing a 16 cm long 12 [place] dual lumen dialysis catheter with a pigtail that can be used for other meds. Following this the entire right groin was prepped with chlorhexidine. I had on full protective gear including mask with a plastic face guard, gown, gloves, and hat and lead so we could use the C-arm for flpruscopy.. Then 4 sterile towels were applied over the area with a hole at the site of the drape on the Rt. groin level. Following this the ultrasound probe was draped. A small amount of gel was then placed in the patient's right groin. Imaging on the right side I was able to image both the right femoral artery and the right femoral vein. Using an 18 gauge cook needle I cannulated with the right femoral vein under direct vision with the US guidance, and a guidewire was passed without difficulty to 25 centimeters. (5 cc of blood was obtained to send for testing) also, with initial passage of the guidewire did not seem to go in easily therefore I imaged with the C-arm and the wire was curled. Therefore I pulled this out completely under C-arm guidance. Following this I readjusted the needle until we got a good flow of venous blood and then using fluoroscopy I again fed the J-tip guidewire in under fluoroscopy and this went nicely up the femoral and iliac veins into the inferior vena cava. Following this, usual Seldinger technique I placed the central line catheter (dual lumen percutaneous dialysis catheter with pigtail) which was a triple lumen. This was done by carefully placing more local anesthetic at the exit site of the wire and around it. An eleven blade knife was used to make a small slit next to the wire. The dilator was passed, removed, and followed by the catheter up to 16 centimeters at the skin level. (up to the hub of this catheter). 3-0 nylon was used to suture the provided eyelets on the catheter to the patient's upper thigh. An antibiotic disc was applied at the exit site. One more suture was applied directly to the Y-shaped connector on the central matt
--- NOTE | 2021-07-18 10:04 | P.PNNP_ITS ---
Progress Note: A&P Assessment and Plan (1) End stage renal disease: Code(s): N18.6 - End stage renal disease Status: Chronic Assessment and Plan: * due to progression of disease from HTN, DM, vascular disease, and age * temporary HD catheter in place * proceed with dialysis today * will eventually need tunneled HD catheter prior to discharge (2) Cardiac arrest: Code(s): I46.9 - Cardiac arrest, cause unspecified Status: Acute Assessment and Plan: * brief 3 - 4 minute cardiac arrest (asystole after manipulation of the carotid region to access the right IJ for dialysis catheter placement in OR) * ROSC with 4 minutes * due to vagal stimulation of carotid region versus reaction to propofol(?) * hemodynamically stable but issues with bradycardia noted (3) Acute respiratory failure: Code(s): J96.00 - Acute respiratory failure, unspecified whether with hypoxia or hypercapnia Status: Acute Assessment and Plan: * related to cardiac arrest * follow CXR and ABGs * wean for ventilator as tolerated (4) CHF exacerbation: Code(s): I50.9 - Heart failure, unspecified Status: Acute Assessment and Plan: * as noted by CXR results * fluid removal as tolerated by dialysis (5) Essential (primary) hypertension: Code(s): I10 - Essential (primary) hypertension Status: Chronic Assessment and Plan: * elevated but follow trend given first dialysis treatment today * follow trend of hemodynamics (6) Anemia: Qualifiers: Anemia type: due to chronic kidney disease Chronic kidney disease stage: stage 4 (severe) Qualified Code(s): N18.4 - Chronic kidney disease, stage 4 (severe); D63.1 - Anemia in chronic kidney disease Code(s): D64.9 - Anemia, unspecified Status: Chronic Assessment and Plan: * low H/H noted * likely due to ESRD * Epogen with HD * PRBC transfusion with HD today * follow H/H (7) Diabetes: Code(s): E11.9 - Type 2 diabetes mellitus without complications Status: Chronic Assessment and Plan: * follow accuchecks * on SSI Discussed case with Dr. Smart. Will continue to follow. Subjective Date/time seen: 07/18/21 10:04 Chart reviewed - assuming care from Dr. Marin; events noted earlier this AM - cardiac arrest in OR prior to attempted tunneled HD catheter placement as documented by Anesthesiology; temporary femoral HD catheter placed for dialysis needs and central access; remains intubated/sedated at this time. Exam Narrative: General: Elderly AA female intubated/sedated Heart: normal S1 and S2; no rub Lungs: clear to auscultation Abdomen: soft, nontender, nondistended, positive bowel sounds Extremities: no cyanosis or clubbing; no edema Skin: warm and dry Objective Data Vital Signs Vital Signs: Vital Signs Temp Pulse Resp BP Pulse Ox 07/18/21 10:00 36.2 C L 59 L 18 125/56 L 100 07/18/21 09:46 100 07/18/21 09:00 36.1 C L 49 L 18 93/49 L 100 07/18/21 07:29 36.9 C 62 24 H 137/40 L 100 07/18/21 06:00 59 L 07/18/21 04:00 37.3 C 57 L 18 149/59 H 96 07/18/21 02:00 55 L 07/18/21 00:00 56 L 96 07/17/21 23:44 37.1 C 56 L 16 122/83 96 07/17/21 22:00 59 L 07/17/21 20:43 61 07/17/21 20:12 9
--- NOTE | 2021-07-18 10:04 | PM.PNNEP ---
Progress Note: A&P Assessment and Plan (1) End stage renal disease: Code(s): N18.6 - End stage renal disease Status: Chronic Assessment and Plan: due to progression of disease from HTN, DM, vascular disease, and age temporary HD catheter in place proceed with dialysis today will eventually need tunneled HD catheter prior to discharge (2) Cardiac arrest: Code(s): I46.9 - Cardiac arrest, cause unspecified Status: Acute Assessment and Plan: brief 3 - 4 minute cardiac arrest (asystole after manipulation of the carotid region to access the right IJ for dialysis catheter placement in OR) ROSC with 4 minutes due to vagal stimulation of carotid region versus reaction to propofol(?) hemodynamically stable but issues with bradycardia noted (3) Acute respiratory failure: Code(s): J96.00 - Acute respiratory failure, unspecified whether with hypoxia or hypercapnia Status: Acute Assessment and Plan: related to cardiac arrest follow CXR and ABGs wean for ventilator as tolerated (4) CHF exacerbation: Code(s): I50.9 - Heart failure, unspecified Status: Acute Assessment and Plan: as noted by CXR results fluid removal as tolerated by dialysis (5) Essential (primary) hypertension: Code(s): I10 - Essential (primary) hypertension Status: Chronic Assessment and Plan: elevated but follow trend given first dialysis treatment today follow trend of hemodynamics (6) Anemia: Qualifiers: Anemia type: due to chronic kidney disease Chronic kidney disease stage: stage 4 (severe) Qualified Code(s): N18.4 - Chronic kidney disease, stage 4 (severe); D63.1 - Anemia in chronic kidney disease Code(s): D64.9 - Anemia, unspecified Status: Chronic Assessment and Plan: low H/H noted likely due to ESRD Epogen with HD PRBC transfusion with HD today follow H/H (7) Diabetes: Code(s): E11.9 - Type 2 diabetes mellitus without complications Status: Chronic Assessment and Plan: follow accuchecks on SSI Discussed case with Dr. Smart. Will continue to follow. Subjective Date/time seen: 07/18/21 10:04 Chart reviewed - assuming care from Dr. Marin; events noted earlier this AM - cardiac arrest in OR prior to attempted tunneled HD catheter placement as documented by Anesthesiology; temporary femoral HD catheter placed for dialysis needs and central access; remains intubated/sedated at this time. Exam Narrative: General: Elderly AA female intubated/sedated Heart: normal S1 and S2; no rub Lungs: clear to auscultation Abdomen: soft, nontender, nondistended, positive bowel sounds Extremities: no cyanosis or clubbing; no edema Skin: warm and dry Objective Data Vital Signs Vital Signs: Vital Signs Temp Pulse Resp BP Pulse Ox 07/18/21 10:00 36.2 C L 59 L 18 125/56 L 100 07/18/21 09:46 100 07/18/21 09:00 36.1 C L 49 L 18 93/49 L 100 07/18/21 07:29 36.9 C 62 24 H 137/40 L 100 07/18/21 06:00 59 L 07/18/21 04:00 37.3 C 57 L 18 149/59 H 96 07/18/21 02:00 55 L 07/18/21 00:00 56 L 96 07/17/21 23:44 37.1 C 56 L 16 122/83 96 07/17/21 22:00 59 L 07/17/21 20:43 61 07/17/21 20:12 94 07/17/21 20:00 36.8 C 61 16 114/49 L 93 07/17/21 18:00 63 07/17/21 16:00 36.8 C 59 L 20 135/57 L 94 07/17/21 14:00 59 L Intake/Output Intake/Output: Intake & Output 07/15/21 07/16/21 07/17/21 07/18/21 23:59 23:59 23:59 23:59 Intake Total 3280 1740 1400 Output Total 400 200 Balance 2880 1740 1200 Meds/Results Medications: Active Medications Generic Name Dose Route Start Last Admin Trade Name Freq PRN Reason Stop Dose Admin Acetaminophen 650 mg 07/15/21 20:46 07/17/21 16:17 Acetaminophen 325 Mg Tablet PO 650 mg Q4H PRN Administration Mild Pain (1-3) or Fever A
[2021-07-18 10:35] LABS: Basophils Percent Auto 0.2 % (0.2-1.2); Eosinophils Absolute Auto 0.1 K/mm3 (0-0.3); Eosinophils Percent Auto 0.8 % (0-4.4); Hematocrit 22.5 % (37.0-47.0); Immature Granulocyte Absolute 0.21 K/mm3 (0.00-0.031); Immature Granulocyte Percent A 1.6 % (0-0.5); Lymphocytes Percent Auto 3.9 % (18.3-44.2); Mean Corpuscular HGB Conc 29.3 g/dl (32-36); Mean Corpuscular Hemoglobin 30.6 pg (26-34); Mean Corpuscular Volume 104.2 fl (80-100); Mean Platelet Volume 10.1 fl (7.4-10.4); Monocytes Absolute Auto 0.6 K/mm3 (0.1-0.6); Monocytes Percent Auto 4.6 % (2.6-8.5); Neutrophils Absolute Auto 11.3 K/mm3 (1.3-6.7); Neutrophils Percent Auto 88.9 % (45.5-73.1); Nucleated Red Blood Cells Perc 0.2 % (0.0-0.2); Platelet Count Result 197 k/mm3 (150-375); Red Blood Count 2.16 M/mm3 (4.2-5.4); Red Cell Distribution Width 13.8 % (11.5-14.5); White Blood Count 12.7 K/mm3 (4.5-10.0)
[2021-07-18 10:45] LABS: Lactic Acid Reflex 1.5 mmol/L (0.7-2.0)
[2021-07-18 10:46] LABS: Alanine Aminotransferase 122 U/L (4-35); Albumin Level 2.6 g/dL (3.5-5.1); Alkaline Phosphatase 78 U/L (38-126); Anion Gap 7 mmol/L (8-16); Aspartate Amino Transferase 208 U/L (14-36); Bilirubin,Total 0.1 mg/dL (0.2-1.3); Blood Urea Nitrogen 71 mg/dL (7-17); Calcium 7.9 mg/dL (8.4-10.2); Carbon Dioxide 19 mmol/L (22-30); Chloride 110 mmol/L (98-107); Estimated CRCL calculation 7 ml/min; Estimated Glomerular Filt Rate 7; Glucose 176 mg/dL (65-110); Phosphorus 7.1 mg/dL (2.5-4.5); Potassium 5.7 mmol/L (3.4-5.0); Sodium 136 mmol/L (137-145)
[2021-07-18 10:49] LABS: Ammonia < 9 umol/L (9-30)
[2021-07-18 11:00] LABS: INR 1.3; Prothrombin Time 15.6 Seconds (11.1-14.7)
[2021-07-18 11:02] LABS: Partial Thromboplastin Time 47.6 SECONDS (22.3-36.8)
[2021-07-18 11:04] LABS: Alveolar/Arterial O2 Gradient 275.3 mmHg; Base Excess ABG -8.2 mEq/l (+/-2.0); Carboxyhemoglobin 0.3 % THb (0-2.0); Fractional Inspired Oxygen 100 %; HCO3 ABG 15.9 mEq/l (22.0-26.0); Methemoglobin ABG 0.6 %THb (0-1.5); Oxygen Content ABG 11.4 %vol (16.0-22.0); Oxygen Saturation ABG 99.8 % (95.0-100.0); Oxyhemoglobin 97.9 % THb (90.0-100.0); PCO2 ABG 27.2 mmHg (35.0-45.0); PO2 ABG 410.5 mmHg (80.0-100.0); PO2 FiO2 Ratio Arterial Blood 4.11 %; Reduced Hemoglobin 1.2 %THb (0-5.0); pH ABG 7.386 (7.350-7.450)
[2021-07-18 11:05] LABS: Hemoglobin 6.6 g/dL (12.0-15.0)
--- NOTE | 2021-07-18 11:09 | WPDCNINT ---
Assessment and Plan Assessment and plan (1) Cardiac arrest: Code(s): I46.9 - Cardiac arrest, cause unspecified Status: Acute Assessment and Plan: Patient had a very brief 3-4 minute cardiac arrest as she went into asystole after manipulation of the carotid region to access the right IJ for dialysis catheter. -return of spontaneous circulation within 4 minutes -patient was intubated in the OR -could be related to vagal stimulation of the carotid region, also could be related to propofol she was initially bradycardic -patient hemodynamically stable with adequate blood pressures but remains bradycardic in the 50s, will continue to monitor (2) Acute worsening of stage 4 chronic kidney disease: Code(s): N18.4 - Chronic kidney disease, stage 4 (severe) Status: Acute Assessment and Plan: Acute on chronic kidney disease, creatinine increased during the course of stay in the hospital. She was deemed to received hemodialysis -07/18 right IJ tunnel dialysis catheter was attempted but patient had a cardiac arrest, so a temporary right femoral vein dialysis catheter was inserted with a pigtail -nephrology following the patient -patient will be dialyzed today -patient is slightly hypertensive, discussed with Nephrology that I will not treat the hypertension at this time given that patient is going to be dialyzed to which nephrology is agreeable. (3) Acute respiratory failure: Code(s): J96.00 - Acute respiratory failure, unspecified whether with hypoxia or hypercapnia Status: Acute Assessment and Plan: Acute respiratory failure likely related to cardiac arrest -will try to keep patient awake to obtain baseline mental status -p.r.n. Versed and ordered as patient was gagging on the ETT -chest x-ray and ABGs reviewed, ventilator adjusted - (4) Congestive heart failure: Qualifiers: Heart failure chronicity: acute on chronic Heart failure type: diastolic Qualified Code(s): I50.33 - Acute on chronic diastolic (congestive) heart failure Code(s): I50.9 - Heart failure, unspecified Status: Chronic Assessment and Plan: Chest x-ray shows mild pulmonary edema, patient to be dialyzed today -not in florid congestive heart failure (5) Anemia: Qualifiers: Anemia type: due to chronic kidney disease Chronic kidney disease stage: stage 4 (severe) Qualified Code(s): N18.4 - Chronic kidney disease, stage 4 (severe); D63.1 - Anemia in chronic kidney disease Code(s): D64.9 - Anemia, unspecified Status: Chronic Assessment and Plan: Patient dropped hemoglobin to 6.6 post cardiac arrest, have ordered 2 units of packed RBCs to be transfused with dialysis, Nephrology aware -will continue to monitor blood counts, if the continue drop, will obtain CT abdomen and pelvis (6) Type II diabetes mellitus with renal manifestations: Qualifiers: Diabetes mellitus tank terminal gauger insulin use: without tank terminal gauger use Diabetes mellitus complication detail: with chronic kidney disease Chronic kidney disease stage: stage 4 (severe) Qualified Code(s): E11.22 - Type 2 diabetes mellitus with diabetic chronic kidney disease; N18.4 - Chronic kidney disease, stage 4 (severe) Code(s): E11.29 - Type 2 diabetes mellitus with other diabetic kidney complication Status: Chronic Assessment and Plan: Continue sliding scale insulin Accu-Cheks (7) Hypothyroidism, unspecified: Qualifiers: Hypothyroidism type: acquired Qualified Code(s): E03.9 - Hypothyroidism, unspecified Code(s): E03.9 - Hypothyroidism, unspecified Status: Chronic Assessment and Plan: Continue Synthroid (8) Essential (primary) hypertension: Code(s): I10 - Essential (primary) hypertension Status: Chronic Assessment and Plan: Will hold antihypertensives, as patient is supposed to get her 1st dialysis today on 07/18. Discussed with nephrology and agr
[2021-07-18 11:10] LABS: Device VENTILATOR; Modified Allen's Test Pass; Site Drawn LEFT RADIAL; Total Hemoglobin 7.4 g/dL (12.0-18.0)
[2021-07-18 11:12] LABS: Arterial Blood Gas PEEP 5 cmH2O; Arterial Blood Gas Tidal Volume 420 ml; Arterial Blood Gas Vent Mode CMV; Arterial Blood Gas Ventilator rate 18 /MIN
[2021-07-18] MEDS: SODIUM BICARBONATE 8.4% 50 MEQ/50 ML SYRINGE IV PUSH (12:08)
[2021-07-18] MEDS: INSULIN HUMAN REGULAR (*BKC) 100 UNITS/ML 10 UNITS IV PUSH (12:08)
[2021-07-18] MEDS: DEXTROSE 50% 25 GM/50 ML SYRINGE IV PUSH (12:08)
[2021-07-18] MEDS: SODIUM POLYSTYRENE SULFONONATE 15 GM/60 ML BTL 30 GM PO (12:08)
[2021-07-18] MEDS: calcitrioL 0.25 MCG CAPSULE PO (12:09)
[2021-07-18] MEDS: PANTOPRAZOLE SODIUM IV 40 MG VIAL IV PUSH ×2 (12:09→20:41)
[2021-07-18 14:29] LABS: Anion Gap 8 mmol/L (8-16); Blood Urea Nitrogen 74 mg/dL (7-17); Calcium 8.1 mg/dL (8.4-10.2); Carbon Dioxide 18 mmol/L (22-30); Chloride 110 mmol/L (98-107); Estimated CRCL calculation 7 ml/min; Estimated Glomerular Filt Rate 7; Glucose 135 mg/dL (65-110); Potassium 4.6 mmol/L (3.4-5.0); Sodium 136 mmol/L (137-145)
[2021-07-18 14:33] LABS: Magnesium 2.1 mg/dL (1.6-2.3)
--- NOTE | 2021-07-18 14:42 | ECG_ITS ---
Measurements Intervals Meta Rate: 57 P: 78 CA: 149 QRS: -12 QRSD: 109 T: 215 QT: 488 QTc: 478 Interpretive Statements SINUS BRADYCARDIA POSSIBLE LEFT ATRIAL ENLARGEMENT LEFT VENTRICULAR HYPERTROPHY AND ST-T CHANGE T WAVE ABNORMALITY IN ANTEROLATERAL LEADS- CONSIDER ISCHEMIA BASELINE ARTIFACT- I, III, AVR, AVL, V6 ABNORMAL ECG Electronically Signed On 07-18-2021 19:41:30 CDT by Ashutosh Jones D.O.
[2021-07-18 15:10] LABS: Glucose Point of Care 133 mg/dl (65-105)
[2021-07-18] MEDS: MIDAZOLAM 100MG/NS 100ML(*CRX) 100 MG/100 ML BAG IV CONT (16:06)
[2021-07-18] MEDS: SODIUM CHLORIDE 0.9% IV 1,000 ML 999 ML IV CONT (17:33)
[2021-07-18] MEDS: SODIUM BICARBONATE TAB 650 MG TABLET 1300 MG PO (18:25)
[2021-07-18] MEDS: hydrALAZINE HCL 20 MG/ML VIAL 10 MG IV PUSH (18:26)
[2021-07-18] MEDS: LATANOPROST 0.005% OP SOLN 2.5 ML BTL 1 DROP EACH EYE (18:26)
[2021-07-18 18:33] LABS: Glucose Point of Care 108 mg/dl (65-105)
[2021-07-18] MEDS: MINERAL OIL/WHITE PETROLATUM OINTMENT 1 APPLIC EACH EYE (20:41)
[2021-07-18] MEDS: hydrALAZINE HCL 20 MG/ML VIAL IV PUSH (21:21)
[2021-07-18] MEDS: niCARdipine 20 MG/200 ML 20 MG/200 ML BAG 50 MG IV CONT (23:41)
[2021-07-19] VITALS (35 sets, daily range): BP systolic 111–204; BP diastolic 46–72; PULSE 49–66; RESP 12–21; TEMP 35.6–36.1; O2SAT 94–100
[2021-07-19] MEDS: niCARdipine 20 MG/200 ML 20 MG/200 ML BAG 125 MG IV CONT (02:27)
[2021-07-19 02:48] LABS: Glucose Point of Care 119 mg/dl (65-105)
[2021-07-19 05:07] LABS: Alveolar/Arterial O2 Gradient 167.3 mmHg; Base Excess ABG -3.1 mEq/l (+/-2.0); Carboxyhemoglobin 0.3 % THb (0-2.0); Fractional Inspired Oxygen 40 %; HCO3 ABG 17.5 mEq/l (22.0-26.0); Methemoglobin ABG 0.4 %THb (0-1.5); Oxygen Saturation ABG 98.2 % (95.0-100.0); Oxyhemoglobin 95.9 % THb (90.0-100.0); PO2 ABG 94.9 mmHg (80.0-100.0); PO2 FiO2 Ratio Arterial Blood 2.37 %; Reduced Hemoglobin 3.4 %THb (0-5.0)
[2021-07-19 05:11] LABS: Device VENTILATOR; Modified Allen's Test Pass; Site Drawn LEFT RADIAL; pH ABG 7.559 (7.350-7.450)
[2021-07-19 05:12] LABS: Arterial Blood Gas PEEP 5 cmH2O; Arterial Blood Gas Tidal Volume 420 ml; Arterial Blood Gas Vent Mode CMV; Arterial Blood Gas Ventilator rate 18 /MIN
[2021-07-19] MEDS: niCARdipine 20 MG/200 ML 20 MG/200 ML BAG 100 MG IV CONT (05:20)
[2021-07-19 06:00] LABS: Basophils Percent Auto 0.2 % (0.2-1.2); Eosinophils Percent Auto 0.2 % (0-4.4); Hematocrit 29.4 % (37.0-47.0); Hemoglobin 9.5 g/dL (12.0-15.0); Immature Granulocyte Absolute 0.08 K/mm3 (0.00-0.031); Immature Granulocyte Percent A 0.7 % (0-0.5); Lymphocytes Absolute Auto 0.47 K/mm3 (0.9-3.2); Lymphocytes Percent Auto 4.1 % (18.3-44.2); Mean Corpuscular HGB Conc 32.3 g/dl (32-36); Mean Corpuscular Hemoglobin 30.4 pg (26-34); Mean Corpuscular Volume 93.9 fl (80-100); Monocytes Absolute Auto 0.7 K/mm3 (0.1-0.6); Monocytes Percent Auto 6.4 % (2.6-8.5); Neutrophils Absolute Auto 10.2 K/mm3 (1.3-6.7); Neutrophils Percent Auto 88.4 % (45.5-73.1); Platelet Count Result 198 k/mm3 (150-375); Red Blood Count 3.13 M/mm3 (4.2-5.4); Red Cell Distribution Width 14.6 % (11.5-14.5); White Blood Count 11.6 K/mm3 (4.5-10.0)
[2021-07-19 06:06] LABS: Alanine Aminotransferase 82 U/L (4-35); Albumin Level 2.8 g/dL (3.5-5.1); Alkaline Phosphatase 77 U/L (38-126); Anion Gap 9 mmol/L (8-16); Aspartate Amino Transferase 82 U/L (14-36); Bilirubin,Total 0.7 mg/dL (0.2-1.3); Blood Urea Nitrogen 57 mg/dL (7-17); Calcium 8.1 mg/dL (8.4-10.2); Carbon Dioxide 19 mmol/L (22-30); Chloride 110 mmol/L (98-107); Estimated CRCL calculation 10 ml/min; Estimated Glomerular Filt Rate 10; Glucose 120 mg/dL (65-110); Phosphorus 4.5 mg/dL (2.5-4.5); Potassium 3.9 mmol/L (3.4-5.0); Sodium 138 mmol/L (137-145)
[2021-07-19 06:10] LABS: INR 1.2; Prothrombin Time 15.2 Seconds (11.1-14.7)
[2021-07-19 06:11] LABS: Partial Thromboplastin Time 32.9 SECONDS (22.3-36.8)
[2021-07-19] MEDS: LEVOTHYROXINE SODIUM 50 MCG TABLET PO (06:13)
[2021-07-19] MEDS: MINERAL OIL/WHITE PETROLATUM OINTMENT 1 APPLIC EACH EYE ×2 (08:24→20:08)
[2021-07-19] MEDS: PANTOPRAZOLE SODIUM IV 40 MG VIAL IV PUSH ×2 (08:24→20:09)
[2021-07-19] MEDS: CHOLECALCIFEROL 1,000 UNITS TABLET 2000 UNITS PO (08:25)
[2021-07-19] MEDS: SODIUM BICARBONATE TAB 650 MG TABLET 1300 MG PO ×2 (08:25→17:43)
[2021-07-19] MEDS: ATORVASTATIN 20 MG TABLET PO (08:25)
[2021-07-19] MEDS: amLODIPine BESYLATE 5 MG TABLET 10 MG PO (08:27)
[2021-07-19] MEDS: niCARdipine 20 MG/200 ML 20 MG/200 ML BAG 75 MG IV CONT (08:30)
--- NOTE | 2021-07-19 11:34 | WPDINTPN ---
Progress Note: A&P Assessment and Plan (1) Essential (primary) hypertension: Code(s): I10 - Essential (primary) hypertension Status: Chronic Assessment and Plan: Patient has been hypertensive all day yesterday, started her on nicardipine infusion with improvement in blood pressures, -started her on amlodipine -currently she is off nicardipine infusion (2) Cardiac arrest: Code(s): I46.9 - Cardiac arrest, cause unspecified Status: Acute Assessment and Plan: Patient had a very brief 3-4 minute cardiac arrest as she went into asystole after manipulation of the carotid region to access the right IJ for dialysis catheter. -return of spontaneous circulation within 4 minutes -patient was intubated in the OR -could be related to vagal stimulation of the carotid region, also could be related to propofol she was initially bradycardic -patient hemodynamically stable with adequate blood pressures but remains bradycardic in the 50s, will continue to monitor (3) Acute respiratory failure: Code(s): J96.00 - Acute respiratory failure, unspecified whether with hypoxia or hypercapnia Status: Acute Assessment and Plan: Acute respiratory failure likely related to cardiac arrest -will try to keep patient awake to obtain baseline mental status -p.r.n. Versed and ordered as patient was gagging on the ETT -chest x-ray and ABGs reviewed, ventilator adjusted -discontinued sedation, patient following commands and nods to questions -will place patient on SBT and evaluate for extubation (4) Acute worsening of stage 4 chronic kidney disease: Code(s): N18.4 - Chronic kidney disease, stage 4 (severe) Status: Acute Assessment and Plan: Acute on chronic kidney disease, creatinine increased during the course of stay in the hospital. She was deemed to received hemodialysis -07/18 right IJ tunnel dialysis catheter was attempted but patient had a cardiac arrest, so a temporary right femoral vein dialysis catheter was inserted with a pigtail -nephrology following the patient -07/18/2021: Patient was dialyzed -dialysis per Nephrology (5) Congestive heart failure: Qualifiers: Heart failure chronicity: acute on chronic Heart failure type: diastolic Qualified Code(s): I50.33 - Acute on chronic diastolic (congestive) heart failure Code(s): I50.9 - Heart failure, unspecified Status: Chronic Assessment and Plan: Chest x-ray shows mild pulmonary edema, patient to be dialyzed today -chest x-ray does show some mild pulmonary pulmonary edema -will discuss with Nephrology regarding some fluid removal (6) Anemia: Qualifiers: Anemia type: due to chronic kidney disease Chronic kidney disease stage: stage 4 (severe) Qualified Code(s): N18.4 - Chronic kidney disease, stage 4 (severe); D63.1 - Anemia in chronic kidney disease Code(s): D64.9 - Anemia, unspecified Status: Chronic Assessment and Plan: Patient dropped hemoglobin to 6.6 post cardiac arrest, have ordered 2 units of packed RBCs to be transfused with dialysis, Nephrology aware -will continue to monitor blood counts, if the continue drop, will obtain CT abdomen and pelvis -07/18: Received 2 units of packed RBCs with dialysis -hemoglobin has improved, will continue to monitor (7) Type II diabetes mellitus with renal manifestations: Qualifiers: Diabetes mellitus long term care phlebotomist insulin use: without long term care phlebotomist use Diabetes mellitus complication detail: with chronic kidney disease Chronic kidney disease stage: stage 4 (severe) Qualified Code(s): E11.22 - Type 2 diabetes mellitus with diabetic chronic kidney disease; N18.4 - Chronic kidney disease, stage 4 (severe) Code(s): E11.29 - Type 2 diabetes mellitus with other diabetic kidney complication Status: Chronic Assessment and Plan: Continue sliding scale insulin Accu-Cheks (8) Hypothyroidism, unspecified: Qualifiers:
[2021-07-19 11:52] LABS: Glucose Point of Care 154 mg/dl (65-105)
--- NOTE | 2021-07-19 12:05 | P.PNNP_ITS ---
Progress Note: A&P Assessment and Plan (1) End stage renal disease: Code(s): N18.6 - End stage renal disease Status: Chronic Assessment and Plan: * due to progression of disease from HTN, DM, vascular disease, and age * temporary HD catheter in place * paln next HD treatment tomorrow * will eventually need tunneled HD catheter prior to discharge (2) Cardiac arrest: Code(s): I46.9 - Cardiac arrest, cause unspecified Status: Acute Assessment and Plan: * brief 3 - 4 minute cardiac arrest (asystole after manipulation of the carotid region to access the right IJ for dialysis catheter placement in OR) * ROSC with 4 minutes * due to vagal stimulation of carotid region versus reaction to propofol(?) * hemodynamically stable but issues with bradycardia noted (3) Acute respiratory failure: Code(s): J96.00 - Acute respiratory failure, unspecified whether with hypoxia or hypercapnia Status: Acute Assessment and Plan: * related to cardiac arrest * follow CXR and ABGs * wean for ventilator as tolerated (4) CHF exacerbation: Code(s): I50.9 - Heart failure, unspecified Status: Acute Assessment and Plan: * as noted by CXR results * fluid removal as tolerated by dialysis (5) Essential (primary) hypertension: Code(s): I10 - Essential (primary) hypertension Status: Chronic Assessment and Plan: * elevated but follow trend given first dialysis treatment today * follow trend of hemodynamics (6) Anemia: Qualifiers: Anemia type: due to chronic kidney disease Chronic kidney disease stage: stage 4 (severe) Qualified Code(s): N18.4 - Chronic kidney disease, stag e 4 (severe); D63.1 - Anemia in chronic kidney disease Code(s): D64.9 - Anemia, unspecified Status: Chronic Assessment and Plan: * low H/H noted * likely due to ESRD * Epogen with HD * PRBC transfusion with HD (on 07/18/21) * follow H/H (7) Diabetes: Code(s): E11.9 - Type 2 diabetes mellitus without complications Status: Chronic Assessment and Plan: * follow accuchecks * on SSI Discussed case with Dr. Smart. Extensive discussion (> 20 minutes) with family at bedside regarding above issues and plan of care as outlined. Will continue to follow. Subjective Date/time seen: 07/19/21 12:05 Tolerated dialysis yesterday along with PRBC transfusion with dialysis without any issues or problems; required nicardipine gtt overnight due to extremely elevated BP but currently off after being given oral amlodpine; family at bedside and we discussed the situation. Exam Narrative: General: Elderly AA female intubated and on mechanical ventilation Heart: normal S1 and S2; no rub Lungs: coarse breath sounds throughout Abdomen: soft, nontender, nondistended, positive bowel sounds Extremities: no cyanosis or clubbing; trace edema Skin: warm and intact Objective Data Vital Signs Vital Signs: Vital Signs Temp Pulse Resp BP Pulse Ox 07/19/21 12:03 56 L 127/46 L 07/19/21 12:00 35.8 C L 52 L 13 127/46 L 100 07/19/21 11:41 49 L 99 07/19/21 11:40 50 L 126/46 L 07/19/21 10:00 35.7 C L 52 L 12 136/53 L 99 07/19/21 09:59 50 L 138/55 L 07/19/21 08:49 56 L 98 07/19/21 08:32 55 L 21 H 07/19/21 08:30 55 L 146/4
--- NOTE | 2021-07-19 12:05 | PM.PNNEP ---
Progress Note: A&P Assessment and Plan (1) End stage renal disease: Code(s): N18.6 - End stage renal disease Status: Chronic Assessment and Plan: due to progression of disease from HTN, DM, vascular disease, and age temporary HD catheter in place paln next HD treatment tomorrow will eventually need tunneled HD catheter prior to discharge (2) Cardiac arrest: Code(s): I46.9 - Cardiac arrest, cause unspecified Status: Acute Assessment and Plan: brief 3 - 4 minute cardiac arrest (asystole after manipulation of the carotid region to access the right IJ for dialysis catheter placement in OR) ROSC with 4 minutes due to vagal stimulation of carotid region versus reaction to propofol(?) hemodynamically stable but issues with bradycardia noted (3) Acute respiratory failure: Code(s): J96.00 - Acute respiratory failure, unspecified whether with hypoxia or hypercapnia Status: Acute Assessment and Plan: related to cardiac arrest follow CXR and ABGs wean for ventilator as tolerated (4) CHF exacerbation: Code(s): I50.9 - Heart failure, unspecified Status: Acute Assessment and Plan: as noted by CXR results fluid removal as tolerated by dialysis (5) Essential (primary) hypertension: Code(s): I10 - Essential (primary) hypertension Status: Chronic Assessment and Plan: elevated but follow trend given first dialysis treatment today follow trend of hemodynamics (6) Anemia: Qualifiers: Anemia type: due to chronic kidney disease Chronic kidney disease stage: stage 4 (severe) Qualified Code(s): N18.4 - Chronic kidney disease, stage 4 (severe); D63.1 - Anemia in chronic kidney disease Code(s): D64.9 - Anemia, unspecified Status: Chronic Assessment and Plan: low H/H noted likely due to ESRD Epogen with HD PRBC transfusion with HD (on 07/18/21) follow H/H (7) Diabetes: Code(s): E11.9 - Type 2 diabetes mellitus without complications Status: Chronic Assessment and Plan: follow accuchecks on SSI Discussed case with Dr. Smart. Extensive discussion (> 20 minutes) with family at bedside regarding above issues and plan of care as outlined. Will continue to follow. Subjective Date/time seen: 07/19/21 12:05 Tolerated dialysis yesterday along with PRBC transfusion with dialysis without any issues or problems; required nicardipine gtt overnight due to extremely elevated BP but currently off after being given oral amlodpine; family at bedside and we discussed the situation. Exam Narrative: General: Elderly AA female intubated and on mechanical ventilation Heart: normal S1 and S2; no rub Lungs: coarse breath sounds throughout Abdomen: soft, nontender, nondistended, positive bowel sounds Extremities: no cyanosis or clubbing; trace edema Skin: warm and intact Objective Data Vital Signs Vital Signs: Vital Signs Temp Pulse Resp BP Pulse Ox 07/19/21 12:03 56 L 127/46 L 07/19/21 12:00 35.8 C L 52 L 13 127/46 L 100 07/19/21 11:41 49 L 99 07/19/21 11:40 50 L 126/46 L 07/19/21 10:00 35.7 C L 52 L 12 136/53 L 99 07/19/21 09:59 50 L 138/55 L 07/19/21 08:49 56 L 98 07/19/21 08:32 55 L 21 H 07/19/21 08:30 55 L 146/47 H 07/19/21 08:13 54 L 100 07/19/21 08:00 35.6 C L 54 L 18 151/48 H 100 07/19/21 07:37 53 L 18 07/19/21 06:00 35.6 C L 55 L 18 157/52 H 100 07/19/21 05:34 55 L 156/52 H 07/19/21 05:22 55 L 18 07/19/21 05:20 149/54 H 07/19/21 05:00 53 L 100 07/19/21 04:03 58 L 149/54 H 07/19/21 04:00 35.7 C L 57 L 18 150/55 H 100 07/19/21 02:27 56 L 145/50 H 07/19/21 02:00 58 L 18 145/50 H 100 07/19/21 01:48 56 L 145/50 H 07/19/21 01:43 62 99 07/19/21 00:49 63 188/65 H 07/19/21 00:33 65 189/72 H 07/19/21 00:13 65
[2021-07-19] MEDS: ACETAMINOPHEN 325 MG TABLET 650 MG PO (15:13)
[2021-07-19 17:50] LABS: Glucose Point of Care 112 mg/dl (65-105)
[2021-07-19] MEDS: LATANOPROST 0.005% OP SOLN 2.5 ML BTL 1 DROP EACH EYE (18:00)
[2021-07-20] VITALS (30 sets, daily range): BP systolic 140–192; BP diastolic 55–127; PULSE 62–96; RESP 12–23; TEMP 36–37.7; O2SAT 94–99; BMI 34.3
[2021-07-20] LABS: Glucose Point of Care 142 mg/dl (65-105)
[2021-07-20 05:54] LABS: Basophils Percent Auto 0.2 % (0.2-1.2); Eosinophils Absolute Auto 0.1 K/mm3 (0-0.3); Eosinophils Percent Auto 0.5 % (0-4.4); Hematocrit 28.3 % (37.0-47.0); Hemoglobin 9.1 g/dL (12.0-15.0); Immature Granulocyte Absolute 0.07 K/mm3 (0.00-0.031); Immature Granulocyte Percent A 0.5 % (0-0.5); Lymphocytes Absolute Auto 0.51 K/mm3 (0.9-3.2); Mean Corpuscular HGB Conc 32.2 g/dl (32-36); Mean Corpuscular Hemoglobin 30.7 pg (26-34); Mean Corpuscular Volume 95.6 fl (80-100); Mean Platelet Volume 10.1 fl (7.4-10.4); Monocytes Absolute Auto 0.9 K/mm3 (0.1-0.6); Monocytes Percent Auto 6.8 % (2.6-8.5); Neutrophils Absolute Auto 11.3 K/mm3 (1.3-6.7); Platelet Count Result 199 k/mm3 (150-375); Red Blood Count 2.96 M/mm3 (4.2-5.4); White Blood Count 12.9 K/mm3 (4.5-10.0)
[2021-07-20 05:57] LABS: Alveolar/Arterial O2 Gradient 55.5 mmHg; Base Excess ABG -5.2 mEq/l (+/-2.0); Carboxyhemoglobin 0.3 % THb (0-2.0); Fractional Inspired Oxygen 25 %; HCO3 ABG 18.8 mEq/l (22.0-26.0); Methemoglobin ABG 0.3 %THb (0-1.5); Oxygen Content ABG 16.1 %vol (16.0-22.0); Oxygen Saturation ABG 96.5 % (95.0-100.0); Oxyhemoglobin 94.7 % THb (90.0-100.0); PCO2 ABG 31.6 mmHg (35.0-45.0); PO2 ABG 85.2 mmHg (80.0-100.0); PO2 FiO2 Ratio Arterial Blood 3.41 %; Reduced Hemoglobin 4.7 %THb (0-5.0); pH ABG 7.392 (7.350-7.450)
[2021-07-20 05:58] LABS: Arterial Blood Gas PEEP 5 cmH2O; Arterial Blood Gas Vent Mode ASV; Device VENTILATOR; Modified Allen's Test Unable to perform; Site Drawn RIGHT RADIAL
[2021-07-20 06:03] LABS: Alanine Aminotransferase 40 U/L (6-35); Albumin Level 2.7 g/dL (3.5-5.1); Alkaline Phosphatase 78 U/L (38-126); Anion Gap 11 mmol/L (8-16); Aspartate Amino Transferase 41 U/L (14-36); Bilirubin,Total 0.3 mg/dL (0.2-1.3); Blood Urea Nitrogen 63 mg/dL (7-17); Calcium 8.1 mg/dL (8.4-10.2); Carbon Dioxide 20 mmol/L (22-30); Chloride 108 mmol/L (98-107); Estimated CRCL calculation 8 ml/min; Estimated Glomerular Filt Rate 9; Glucose 145 mg/dL (65-110); Phosphorus 6.4 mg/dL (2.5-4.5); Potassium 3.8 mmol/L (3.4-5.0); Sodium 139 mmol/L (137-145)
[2021-07-20] MEDS: LEVOTHYROXINE SODIUM 50 MCG TABLET PO (06:05)
[2021-07-20] MEDS: hydrALAZINE HCL 20 MG/ML VIAL IV PUSH ×2 (06:35→15:45)
[2021-07-20 07:12] LABS: Platelet Estimate Adequate (Adequate)
[2021-07-20 07:13] LABS: Acanthocytes 1+ (NORMAL); Crenated RBC 1+ (NORMAL); Helmet Cells 1+ (NORMAL); Ovalocytes 1+ (NORMAL)
[2021-07-20] MEDS: PANTOPRAZOLE SODIUM IV 40 MG VIAL IV PUSH ×2 (08:40→20:07)
[2021-07-20] MEDS: SODIUM BICARBONATE TAB 650 MG TABLET 1300 MG PO ×2 (08:40→18:28)
[2021-07-20] MEDS: calcitrioL 0.25 MCG CAPSULE PO ×2 (08:40→18:28)
[2021-07-20] MEDS: MINERAL OIL/WHITE PETROLATUM OINTMENT 1 APPLIC EACH EYE ×2 (08:40→20:07)
[2021-07-20] MEDS: amLODIPine BESYLATE 5 MG TABLET PO ×2 (08:40→20:07)
[2021-07-20] MEDS: ATORVASTATIN 20 MG TABLET PO (08:40)
[2021-07-20] MEDS: CHOLECALCIFEROL 1,000 UNITS TABLET 2000 UNITS PO (08:40)
--- NOTE | 2021-07-20 09:22 | WPDINTPN ---
Progress Note: A&P Assessment and Plan (1) Essential (primary) hypertension: Code(s): I10 - Essential (primary) hypertension Status: Chronic Assessment and Plan: Patient has been hypertensive all day yesterday, started her on nicardipine infusion with improvement in blood pressures, -continue hydralazine and amlodipine (will split amlodipine to 5 mg q.12 hours) -currently she is off nicardipine infusion (2) Cardiac arrest: Code(s): I46.9 - Cardiac arrest, cause unspecified Status: Acute Assessment and Plan: Patient had a very brief 3-4 minute cardiac arrest as she went into asystole after manipulation of the carotid region to access the right IJ for dialysis catheter. -return of spontaneous circulation within 4 minutes -patient was intubated in the OR -could be related to vagal stimulation of the carotid region, also could be related to propofol she was initially bradycardic -patient hemodynamically stable with adequate blood pressures but remains bradycardic in the 50s, -bradycardia has improved -patient is awake, follows simple commands and nods to questions (3) Acute respiratory failure: Code(s): J96.00 - Acute respiratory failure, unspecified whether with hypoxia or hypercapnia Status: Acute Assessment and Plan: Acute respiratory failure likely related to cardiac arrest -will try to keep patient awake to obtain baseline mental status -p.r.n. Versed and ordered as patient was gagging on the ETT -chest x-ray and ABGs reviewed, ventilator adjusted -off sedation since morning of 07/19/2021, patient is awake, nods to questions and follows simple commands -placed on pressure support ventilation 10/5 on 07/19/2021, patient did not tolerate and triggered the apnea ventilation alarm and went into SIMV mode, this was tried multiple times -will place patient on pressure support ventilation again today and evaluate for extubation when ready (4) Acute worsening of stage 4 chronic kidney disease: Code(s): N18.4 - Chronic kidney disease, stage 4 (severe) Status: Acute Assessment and Plan: Acute on chronic kidney disease, creatinine increased during the course of stay in the hospital. She was deemed to received hemodialysis -07/18 right IJ tunnel dialysis catheter was attempted but patient had a cardiac arrest, so a temporary right femoral vein dialysis catheter was inserted with a pigtail -nephrology following the patient -07/18/2021: Patient was dialyzed -dialysis per Nephrology (5) Congestive heart failure: Qualifiers: Heart failure chronicity: acute on chronic Heart failure type: diastolic Qualified Code(s): I50.33 - Acute on chronic diastolic (congestive) heart failure Code(s): I50.9 - Heart failure, unspecified Status: Chronic Assessment and Plan: Chest x-ray shows mild pulmonary edema, patient to be dialyzed today -chest x-ray does show some mild pulmonary pulmonary edema -have discussed with Nephrology for fluid removal as chest x-ray shows pulmonary vascular congestion/edema (6) Anemia: Qualifiers: Anemia type: due to chronic kidney disease Chronic kidney disease stage: stage 4 (severe) Qualified Code(s): N18.4 - Chronic kidney disease, stage 4 (severe); D63.1 - Anemia in chronic kidney disease Code(s): D64.9 - Anemia, unspecified Status: Chronic Assessment and Plan: Patient dropped hemoglobin to 6.6 post cardiac arrest, have ordered 2 units of packed RBCs to be transfused with dialysis, Nephrology aware -will continue to monitor blood counts, if the continue drop, will obtain CT abdomen and pelvis -07/18: Received 2 units of packed RBCs with dialysis -hemoglobin remains stable, will continue to monitor (7) Type II diabetes mellitus with renal manifestations: Qualifiers: Diabetes mellitus ocean transportation intermediary insulin use: without ocean transportation intermediary use Diabetes mellitus complication detail: with chronic kidney disease
[2021-07-20] MEDS: EPOETIN ALFA-EPBX 10,000 UNITS/ML VIAL 10000 UNITS IV PUSH (10:34)
[2021-07-20] MEDS: SODIUM CHLORIDE 0.9% IV 1,000 ML 999 ML IV CONT (10:34)
[2021-07-20 12:05] LABS: Glucose Point of Care 148 mg/dl (65-105)
--- NOTE | 2021-07-20 12:12 | P.PNNP_ITS ---
Progress Note: A&P Assessment and Plan (1) End stage renal disease: Code(s): N18.6 - End stage renal disease Status: Chronic Assessment and Plan: * due to progression of disease from HTN, DM, vascular disease, and age * temporary HD catheter in place - but not working so HD treatment unable to be done today * will ask Surgery regarding tunneled HD catheter placement versus guidewire exchange of current catheter for a longer temporary HD catheter (2) Cardiac arrest: Code(s): I46.9 - Cardiac arrest, cause unspecified Status: Acute Assessment and Plan: * brief 3 - 4 minute cardiac arrest (asystole after manipulation of the carotid region to access the right IJ for dialysis catheter placement in OR) * ROSC within 4 minutes * due to vagal stimulation of carotid region versus reaction to propofol(?) * hemodynamically stable but issues with bradycardia initially but now resolved (3) Acute respiratory failure: Code(s): J96.00 - Acute respiratory failure, unspecified whether with hypoxia or hypercapnia Status: Acute Assessment and Plan: * related to cardiac arrest * follow CXR and ABGs * wean for ventilator as tolerated (4) CHF exacerbation: Code(s): I50.9 - Heart failure, unspecified Status: Acute Assessment and Plan: * as noted by CXR results * fluid removal as tolerated by dialysis (5) Essential (primary) hypertension: Code(s): I10 - Essential (primary) hypertension Status: Chronic Assessment and Plan: * elevated but follow trend * follow trend of hemodynamics (6) Anemia: Qualifiers: Anemia type: due to chronic kidney disease Chronic kidney disease stage: stage 4 (severe) Qualified Code(s): N18.4 - Chronic kidney disease, stage 4 (severe); D63.1 - Anemia in chronic kidney disease Code(s): D64.9 - Anemia, unspecified Status: Chronic Assessment and Plan: * low H/H noted * likely due to ESRD * Epogen with HD * PRBC transfusion with HD (on 07/18/21) * follow H/H (7) Diabetes: Code(s): E11.9 - Type 2 diabetes mellitus without complications Status: Chronic Assessment and Plan: * follow accuchecks * on SSI Discussed case with Dr. Smart. Will continue to follow. Subjective Date/time seen: 07/20/21 12:12 Attempted hemodialysis treatment earlier today but femoral HD catheter continued to malfunction despite multiple attempts by HD nurse to troubleshoot; remain intubated and bradycardia has resolved; no apparent distress noted. Exam Narrative: General: Elderly AA female intubated and on mechanical ventilation Heart: normal S1 and S2; no rub Lungs: coarse breath sounds throughout Abdomen: soft, nontender, nondistended, positive bowel sounds Extremities: no cyanosis or clubbing; trace edema Skin: no rash Objective Data Vital Signs Vital Signs: Vital Signs Temp Pulse Resp BP Pulse Ox 07/20/21 11:40 91 192/70 H 07/20/21 11:30 89 167/80 H 07/20/21 11:15 37.0 C 94 22 H 155/73 H 95 07/20/21 11:00 92 153/111 H 07/20/21 10:45 91 164/68 H 07/20/21 10:30 96 155/73 H 07/20/21 10:15 93 164/102 H 07/20/21 10:00 93 18 153/114 H 96 07/20/21 09:45 86 142/75 H 07/20/21 09:27 81 147/127 H 07/20/21 09:15 36.8 C 83
--- NOTE | 2021-07-20 12:12 | PM.PNNEP ---
Progress Note: A&P Assessment and Plan (1) End stage renal disease: Code(s): N18.6 - End stage renal disease Status: Chronic Assessment and Plan: due to progression of disease from HTN, DM, vascular disease, and age temporary HD catheter in place - but not working so HD treatment unable to be done today will ask Surgery regarding tunneled HD catheter placement versus guidewire exchange of current catheter for a longer temporary HD catheter (2) Cardiac arrest: Code(s): I46.9 - Cardiac arrest, cause unspecified Status: Acute Assessment and Plan: brief 3 - 4 minute cardiac arrest (asystole after manipulation of the carotid region to access the right IJ for dialysis catheter placement in OR) ROSC within 4 minutes due to vagal stimulation of carotid region versus reaction to propofol(?) hemodynamically stable but issues with bradycardia initially but now resolved (3) Acute respiratory failure: Code(s): J96.00 - Acute respiratory failure, unspecified whether with hypoxia or hypercapnia Status: Acute Assessment and Plan: related to cardiac arrest follow CXR and ABGs wean for ventilator as tolerated (4) CHF exacerbation: Code(s): I50.9 - Heart failure, unspecified Status: Acute Assessment and Plan: as noted by CXR results fluid removal as tolerated by dialysis (5) Essential (primary) hypertension: Code(s): I10 - Essential (primary) hypertension Status: Chronic Assessment and Plan: elevated but follow trend follow trend of hemodynamics (6) Anemia: Qualifiers: Anemia type: due to chronic kidney disease Chronic kidney disease stage: stage 4 (severe) Qualified Code(s): N18.4 - Chronic kidney disease, stage 4 (severe); D63.1 - Anemia in chronic kidney disease Code(s): D64.9 - Anemia, unspecified Status: Chronic Assessment and Plan: low H/H noted likely due to ESRD Epogen with HD PRBC transfusion with HD (on 07/18/21) follow H/H (7) Diabetes: Code(s): E11.9 - Type 2 diabetes mellitus without complications Status: Chronic Assessment and Plan: follow accuchecks on SSI Discussed case with Dr. Smart. Will continue to follow. Subjective Date/time seen: 07/20/21 12:12 Attempted hemodialysis treatment earlier today but femoral HD catheter continued to malfunction despite multiple attempts by HD nurse to troubleshoot; remain intubated and bradycardia has resolved; no apparent distress noted. Exam Narrative: General: Elderly AA female intubated and on mechanical ventilation Heart: normal S1 and S2; no rub Lungs: coarse breath sounds throughout Abdomen: soft, nontender, nondistended, positive bowel sounds Extremities: no cyanosis or clubbing; trace edema Skin: no rash Objective Data Vital Signs Vital Signs: Vital Signs Temp Pulse Resp BP Pulse Ox 07/20/21 11:40 91 192/70 H 07/20/21 11:30 89 167/80 H 07/20/21 11:15 37.0 C 94 22 H 155/73 H 95 07/20/21 11:00 92 153/111 H 07/20/21 10:45 91 164/68 H 07/20/21 10:30 96 155/73 H 07/20/21 10:15 93 164/102 H 07/20/21 10:00 93 18 153/114 H 96 07/20/21 09:45 86 142/75 H 07/20/21 09:27 81 147/127 H 07/20/21 09:15 36.8 C 83 18 172/75 H 97 07/20/21 08:00 36.1 C L 78 21 H 174/58 H 98 07/20/21 06:00 36.4 C L 67 12 169/62 H 98 07/20/21 05:05 66 99 07/20/21 04:00 36.3 C L 68 20 170/62 H 99 07/20/21 02:00 36.1 C L 62 12 140/57 L 98 07/20/21 00:00 36.1 C L 62 12 146/55 H 99 07/19/21 23:00 64 100 07/19/21 22:00 36.1 C L 66 12 123/50 L 100 07/19/21 20:00 36.1 C L 61 12 132/62 100 07/19/21 18:00 36.0 C L 51 L 14 122/51 L 100 07/19/21 16:55 55 L 100 07/19/21 16:00 35.9 C L 52 L 14 111/50 L 100 07/19/21 14:06 54 L 100 07/19/21 14:00 35.9 C L 54 L 14 126/51 L 100
[2021-07-20 13:48] LABS: Alveolar/Arterial O2 Gradient 66.5 mmHg; Base Excess ABG -0.3 mEq/l (+/-2.0); Fractional Inspired Oxygen 25 %; HCO3 ABG 22.5 mEq/l (22.0-26.0); Oxygen Content ABG 13.6 %vol (16.0-22.0); Oxygen Saturation ABG 96.3 % (95.0-100.0); PCO2 ABG 30.4 mmHg (35.0-45.0); PO2 ABG 75.7 mmHg (80.0-100.0); PO2 FiO2 Ratio Arterial Blood 3.03 %; Total Hemoglobin 10.2 g/dL (12.0-18.0); pH ABG 7.488 (7.350-7.450)
[2021-07-20] MEDS: hydrALAZINE HCL 50 MG TABLET PO ×3 (13:50→23:37)
[2021-07-20 13:51] LABS: Arterial Blood Gas PEEP 5 cmH2O; Arterial Blood Gas Vent Mode SPONTANEOUS; Device VENTILATOR; Modified Allen's Test Pass; Site Drawn RIGHT RADIAL
[2021-07-20 13:52] LABS: Arterial Blood Gas Pressure Support 8 cmH2O
[2021-07-20] MEDS: ACETAMINOPHEN 325 MG TABLET 650 MG PO (15:45)
[2021-07-20 16:22] LABS: Glucose Point of Care 169 mg/dl (65-105)
[2021-07-20 18:23] LABS: Glucose Point of Care 138 mg/dl (65-105)
[2021-07-20] MEDS: LATANOPROST 0.005% OP SOLN 2.5 ML BTL 1 DROP EACH EYE (18:27)
[2021-07-20 23:40] LABS: Glucose Point of Care 167 mg/dl (65-105)
[2021-07-21] VITALS (28 sets, daily range): BP systolic 80–189; BP diastolic 37–88; PULSE 49–99; RESP 11–48; TEMP 36.4–37.6; O2SAT 97–100
[2021-07-21] MEDS: hydrALAZINE HCL 20 MG/ML VIAL IV PUSH (00:33)
[2021-07-21] MEDS: ACETAMINOPHEN 325 MG TABLET 650 MG PO (00:37)
[2021-07-21] MEDS: LABETALOL HCL INJ 100 MG/20 ML VIAL 20 MG IV PUSH (03:08)
[2021-07-21] MEDS: dexmedeTOMIDine 400 MCG/100 ML 400 MCG/100 ML BAG IV CONT (03:09)
[2021-07-21 04:36] LABS: Base Excess ABG 1.4 mEq/l (+/-2.0); Carboxyhemoglobin 0.3 % THb (0-2.0); Fractional Inspired Oxygen 25 %; HCO3 ABG 24.9 mEq/l (22.0-26.0); Methemoglobin ABG 0.5 %THb (0-1.5); Oxygen Content ABG 12.4 %vol (16.0-22.0); Oxygen Saturation ABG 96.6 % (95.0-100.0); Oxyhemoglobin 94.3 % THb (90.0-100.0); PCO2 ABG 35.1 mmHg (35.0-45.0); PO2 ABG 80.6 mmHg (80.0-100.0); PO2 FiO2 Ratio Arterial Blood 3.22 %; Reduced Hemoglobin 4.9 %THb (0-5.0); Total Hemoglobin 9.3 g/dL (12.0-18.0); pH ABG 7.469 (7.350-7.450)
[2021-07-21 04:37] LABS: Device VENTILATOR; Modified Allen's Test Pass; Site Drawn LEFT RADIAL
[2021-07-21 04:38] LABS: Arterial Blood Gas PEEP 5 cmH2O; Arterial Blood Gas Vent Mode ASV
[2021-07-21 04:59] LABS: Basophils Percent Auto 0.2 % (0.2-1.2); Eosinophils Absolute Auto 0.1 K/mm3 (0-0.3); Eosinophils Percent Auto 0.8 % (0-4.4); Hemoglobin 8.1 g/dL (12.0-15.0); Immature Granulocyte Absolute 0.12 K/mm3 (0.00-0.031); Lymphocytes Absolute Auto 0.84 K/mm3 (0.9-3.2); Mean Corpuscular HGB Conc 31.2 g/dl (32-36); Mean Corpuscular Hemoglobin 30.3 pg (26-34); Mean Corpuscular Volume 97.4 fl (80-100); Mean Platelet Volume 10.2 fl (7.4-10.4); Monocytes Percent Auto 8.5 % (2.6-8.5); Neutrophils Absolute Auto 9.9 K/mm3 (1.3-6.7); Neutrophils Percent Auto 82.5 % (45.5-73.1); Nucleated Red Blood Cells Perc 0.3 % (0.0-0.2); Platelet Count Result 152 k/mm3 (150-375); Red Blood Count 2.67 M/mm3 (4.2-5.4); White Blood Count 11.9 K/mm3 (4.5-10.0)
[2021-07-21 05:07] LABS: Alanine Aminotransferase 16 U/L (6-35); Albumin Level 2.7 g/dL (3.5-5.1); Alkaline Phosphatase 113 U/L (38-126); Anion Gap 7 mmol/L (8-16); Aspartate Amino Transferase 26 U/L (14-36); Bilirubin,Total 0.5 mg/dL (0.2-1.3); Blood Urea Nitrogen 56 mg/dL (7-17); Calcium 7.6 mg/dL (8.4-10.2); Carbon Dioxide 25 mmol/L (22-30); Chloride 105 mmol/L (98-107); Estimated CRCL calculation 10 ml/min; Estimated Glomerular Filt Rate 11; Glucose 210 mg/dL (65-110); Phosphorus 4.1 mg/dL (2.5-4.5); Potassium 3.2 mmol/L (3.4-5.0); Sodium 137 mmol/L (137-145)
[2021-07-21] MEDS: hydrALAZINE HCL 50 MG TABLET PO (05:21)
[2021-07-21] MEDS: LEVOTHYROXINE SODIUM 50 MCG TABLET PO (05:21)
[2021-07-21] MEDS: INSULIN ASPART (*BKC) 100 UNITS/ML SUB-Q ×2 (05:38→12:14)
[2021-07-21 05:39] LABS: Glucose Point of Care 221 mg/dl (65-105)
[2021-07-21] MEDS: amLODIPine BESYLATE 5 MG TABLET PO (08:27)
[2021-07-21] MEDS: MINERAL OIL/WHITE PETROLATUM OINTMENT 1 APPLIC EACH EYE ×2 (08:27→21:32)
[2021-07-21] MEDS: CHOLECALCIFEROL 1,000 UNITS TABLET 2000 UNITS PO (08:27)
[2021-07-21] MEDS: ATORVASTATIN 20 MG TABLET PO (08:27)
[2021-07-21] MEDS: calcitrioL 0.25 MCG CAPSULE PO ×2 (08:27→17:35)
[2021-07-21] MEDS: SODIUM BICARBONATE TAB 650 MG TABLET 1300 MG PO ×2 (08:27→17:35)
[2021-07-21] MEDS: PANTOPRAZOLE SODIUM IV 40 MG VIAL IV PUSH ×2 (08:28→21:32)
[2021-07-21] MEDS: POTASSIUM CHLORIDE 20 MEQ PACKET (FOR LIQUID) 40 MEQ FEED TUBE (08:42)
[2021-07-21] MEDS: MIDAZOLAM HCL (*CRX) 2 MG/2 ML VIAL IV PUSH (08:44)
--- NOTE | 2021-07-21 10:16 | P.PNNP_ITS ---
Progress Note: A&P Assessment and Plan (1) End stage renal disease: Code(s): N18.6 - End stage renal disease Status: Chronic Assessment and Plan: * due to progression of disease from HTN, DM, vascular disease, and age * temporary HD catheter in place - but not working so full HD treatment unable to be done yesterday * will ask Surgery regarding attempting tunneled HD catheter placement again (2) Cardiac arrest: Code(s): I46.9 - Cardiac arrest, cause unspecified Status: Acute Assessment and Plan: * brief 3 - 4 minute cardiac arrest (asystole after manipulation of the carotid region to access the right IJ for dialysis catheter placement in OR) * ROSC within 4 minutes * due to vagal stimulation of carotid region versus reaction to propofol(?) * hemodynamically stable but issues with bradycardia * bradycardia was better yesterday but noted again this AM (3) Acute respiratory failure: Code(s): J96.00 - Acute respiratory failure, unspecified whether with hypoxia or hypercapnia Status: Acute Assessment and Plan: * related to cardiac arrest * follow CXR and ABGs * wean for ventilator as tolerated (4) CHF exacerbation: Code(s): I50.9 - Heart failure, unspecified Status: Acute Assessment and Plan: * as noted by CXR results * fluid removal as tolerated by dialysis * still makes some urine so not opposed to trial of IV diuretics (5) Essential (primary) hypertension: Code(s): I10 - Essential (primary) hypertension Status: Chronic Assessment and Plan: * elevated yesterday but relatively low this AM -- due to sedation(?) * BP medications with paramenters * follow trend of hemodynamics (6) Anemia: Qualifiers: Anemia type: due to chronic kidney disease Chronic kidney disease stage: stage 4 (severe) Qualified Code(s): N18.4 - Chronic kidney disease, stage 4 (severe); D63.1 - Anemia in chronic kidney disease Code(s): D64.9 - Anemia, unspecified Status: Chronic Assessment and Plan: * low H/H noted * likely due to ESRD * Epogen with HD * PRBC transfusion with HD (on 07/18/21) * follow H/H (7) Diabetes: Code(s): E11.9 - Type 2 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 Subjective Date/time seen: 07/21/21 10:16 Remain on mechanical ventilation at the time of my visit; unable to get a full dialysis treatment yesterday due to malfunctioning temporary femoral catheter but was able to get off about 1300cc; issues with relative bradycardia again this AM; awake and nods to simple yes/no questions. Exam Narrative: General: Elderly AA female intubated and on mechanical ventilation Heart: normal S1 and S2; no rub Lungs: coarse breath sounds throughout Abdomen: soft, nontender, nondistended, positive bowel sounds Extremities: no cyanosis or clubbing; trace edema Skin: no nodules Objective Data Vital Signs Vital Signs: Vital Signs Temp Pulse Resp BP Pulse Ox 07/21/21 10:00 54 L 16 93/45 L 98 07/21/21 08:24 56 L 99 07/21/21 08:00 36.9 C 57 L 13 106/46 L 99 07/21/21 06:00 37.2 C 59 L 11 L 119/47 L 98 07/21/21 05:55 60 98 07/21/21 04:00 37.5 C 66 11 L 149/50 H 97 07/21/21 03:09 85 48 H
--- NOTE | 2021-07-21 10:16 | PM.PNNEP ---
Progress Note: A&P Assessment and Plan (1) End stage renal disease: Code(s): N18.6 - End stage renal disease Status: Chronic Assessment and Plan: due to progression of disease from HTN, DM, vascular disease, and age temporary HD catheter in place - but not working so full HD treatment unable to be done yesterday will ask Surgery regarding attempting tunneled HD catheter placement again (2) Cardiac arrest: Code(s): I46.9 - Cardiac arrest, cause unspecified Status: Acute Assessment and Plan: brief 3 - 4 minute cardiac arrest (asystole after manipulation of the carotid region to access the right IJ for dialysis catheter placement in OR) ROSC within 4 minutes due to vagal stimulation of carotid region versus reaction to propofol(?) hemodynamically stable but issues with bradycardia bradycardia was better yesterday but noted again this AM (3) Acute respiratory failure: Code(s): J96.00 - Acute respiratory failure, unspecified whether with hypoxia or hypercapnia Status: Acute Assessment and Plan: related to cardiac arrest follow CXR and ABGs wean for ventilator as tolerated (4) CHF exacerbation: Code(s): I50.9 - Heart failure, unspecified Status: Acute Assessment and Plan: as noted by CXR results fluid removal as tolerated by dialysis still makes some urine so not opposed to trial of IV diuretics (5) Essential (primary) hypertension: Code(s): I10 - Essential (primary) hypertension Status: Chronic Assessment and Plan: elevated yesterday but relatively low this AM -- due to sedation(?) BP medications with paramenters follow trend of hemodynamics (6) Anemia: Qualifiers: Anemia type: due to chronic kidney disease Chronic kidney disease stage: stage 4 (severe) Qualified Code(s): N18.4 - Chronic kidney disease, stage 4 (severe); D63.1 - Anemia in chronic kidney disease Code(s): D64.9 - Anemia, unspecified Status: Chronic Assessment and Plan: low H/H noted likely due to ESRD Epogen with HD PRBC transfusion with HD (on 07/18/21) follow H/H (7) Diabetes: Code(s): E11.9 - Type 2 diabetes mellitus without complications Status: Chronic Assessment and Plan: follow accuchecks on SSI Will continue to follow. Subjective Date/time seen: 07/21/21 10:16 Remain on mechanical ventilation at the time of my visit; unable to get a full dialysis treatment yesterday due to malfunctioning temporary femoral catheter but was able to get off about 1300cc; issues with relative bradycardia again this AM; awake and nods to simple yes/no questions. Exam Narrative: General: Elderly AA female intubated and on mechanical ventilation Heart: normal S1 and S2; no rub Lungs: coarse breath sounds throughout Abdomen: soft, nontender, nondistended, positive bowel sounds Extremities: no cyanosis or clubbing; trace edema Skin: no nodules Objective Data Vital Signs Vital Signs: Vital Signs Temp Pulse Resp BP Pulse Ox 07/21/21 10:00 54 L 16 93/45 L 98 07/21/21 08:24 56 L 99 07/21/21 08:00 36.9 C 57 L 13 106/46 L 99 07/21/21 06:00 37.2 C 59 L 11 L 119/47 L 98 07/21/21 05:55 60 98 07/21/21 04:00 37.5 C 66 11 L 149/50 H 97 07/21/21 03:09 85 48 H 07/21/21 03:08 85 07/21/21 02:17 75 97 07/21/21 02:00 37.3 C 76 18 177/60 H 98 07/21/21 00:33 37.6 C H 86 21 H 183/63 H 98 07/21/21 00:00 37.6 C 73 16 189/67 H 97 07/20/21 22:58 72 97 07/20/21 22:00 37.6 C 81 17 167/59 H 97 07/20/21 21:09 74 98 07/20/21 21:00 82 94 07/20/21 20:00 37.7 C H 77 20 160/59 H 98 07/20/21 18:00 37.0 C 72 18 147/58 H 98 07/20/21 16:00 90 07/20/21 14:44 37.3 C 81 18 184/65 H 97 07/20/21 14:00 80 23 H 189/61 H 97 07/20/21 13:11 82 97 07/20/21 12:00 37.3 C 92 21 H 192
--- NOTE | 2021-07-21 10:45 | PCNFU ---
Nutrition Follow-Up Complete: Inadequate Oral Intake as related to mechanical ventilation as evidenced by NPO. Goal:Meet estimated nutritional needs Pt current nutrition is Nepro at 40ml/hr over 22hrs, currently on hold for surgery. Nutrition recommendation:To advance tube feeds to goal rate of 45ml/hr. Last recorded weight is 93.5 kg - down from 96kg 07/20. Bowel Motility:No BM recorded at this time Labs Reviewed:Alb:2.7, K:3.2, GFR:11, BUN:56,CRE:4.6, GLU:210 Meds Noted:Ativan, zofran, lipitor, no sedation at this time Skin:WNL Additional Notes: Pt continues on mechanical ventilation. Tube feedings were running at 40ml/hr of Nepro and tolerating. Currently on hold for possible surgery for dialysis catheter placement. Continue with goal to increase tube feeds to 45ml/hr when restarted to provide 1782kcals, 80g PRO. Will monitor daily in ICU rounds and follow up every Tuesday and Tuesday.
[2021-07-21] MEDS: fentaNYL CITRATE INJ (*CRX) 100 MCG/2 ML VIAL 50 MCG IV PUSH ×2 (11:24→15:19)
--- NOTE | 2021-07-21 11:44 | WPDINTPN ---
Progress Note: A&P Assessment and Plan (1) Acute respiratory failure: Code(s): J96.00 - Acute respiratory failure, unspecified whether with hypoxia or hypercapnia Status: Acute Assessment and Plan: Acute respiratory failure likely related to cardiac arrest ABG reviewed and will change ASV to 90% minute ventilation Will keep patient on the ventilator through today as patient will be going back to OR tomorrow and try to extubate post procedure Chest x-ray reviewed Will transition Precedex to Versed due to bradycardia -placed on pressure support ventilation 12/16 on 07/19/2021, patient did not tolerate and triggered the apnea ventilation alarm and went into SIMV mode, this was tried multiple times -will place patient on pressure support ventilation again today and evaluate for extubation when ready (2) Cardiac arrest: Code(s): I46.9 - Cardiac arrest, cause unspecified Status: Acute Assessment and Plan: Patient had a very brief 3-4 minute cardiac arrest as she went into asystole after manipulation of the carotid region to access the right IJ for dialysis catheter. -return of spontaneous circulation within 4 minutes -patient was intubated in the OR -could be related to vagal stimulation of the carotid region, also could be related to propofol she was initially bradycardic -patient hemodynamically stable with adequate blood pressures but remains bradycardic in the 50s, -bradycardia has improved -patient is awake, follows simple commands and nods to questions (3) Essential (primary) hypertension: Code(s): I10 - Essential (primary) hypertension Status: Chronic Assessment and Plan: Continue amlodipine but hold hydralazine and Coreg due to bradycardia and softer adequate blood pressure (4) Acute worsening of stage 4 chronic kidney disease: Code(s): N18.4 - Chronic kidney disease, stage 4 (severe) Status: Acute Assessment and Plan: Acute on chronic kidney disease, creatinine increased during the course of stay in the hospital. She was deemed to received hemodialysis -07/18 right IJ tunnel dialysis catheter was attempted but patient had a cardiac arrest, so a temporary right femoral vein dialysis catheter was inserted with a pigtail -nephrology following the patient -07/18 and 07/20: Patient was dialyzed -general surgery plans to change dialysis catheter tomorrow in OR -dialysis per Nephrology (5) Congestive heart failure: Qualifiers: Heart failure chronicity: acute on chronic Heart failure type: diastolic Qualified Code(s): I50.33 - Acute on chronic diastolic (congestive) heart failure Code(s): I50.9 - Heart failure, unspecified Status: Chronic Assessment and Plan: Chest x-ray shows mild pulmonary edema which is improved since starting hemodialysis (6) Anemia: Qualifiers: Anemia type: due to chronic kidney disease Chronic kidney disease stage: stage 4 (severe) Qualified Code(s): N18.4 - Chronic kidney disease, stage 4 (severe); D63.1 - Anemia in chronic kidney disease Code(s): D64.9 - Anemia, unspecified Status: Chronic Assessment and Plan: Patient dropped hemoglobin to 6.6 post cardiac arrest and received 2 units of packed RBCs Hemoglobin has been stable since then Will continue to monitor blood counts PPI IV q.12 hours (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
[2021-07-21 11:53] LABS: Glucose Point of Care 209 mg/dl (65-105)
[2021-07-21] MEDS: MIDAZOLAM 100MG/NS 100ML(*CRX) 100 MG/100 ML BAG IV CONT (12:16)
[2021-07-21 17:32] LABS: Glucose Point of Care 191 mg/dl (65-105)
[2021-07-21] MEDS: LATANOPROST 0.005% OP SOLN 2.5 ML BTL 1 DROP EACH EYE (17:35)
[2021-07-21 19:01] LABS: Alveolar/Arterial O2 Gradient 52.9 mmHg; Fractional Inspired Oxygen 25 %; HCO3 ABG 25.6 mEq/l (22.0-26.0); Oxygen Saturation ABG 96.8 % (95.0-100.0); Oxyhemoglobin 94.8 % THb (90.0-100.0); PCO2 ABG 35.8 mmHg (35.0-45.0); PO2 ABG 82.8 mmHg (80.0-100.0); PO2 FiO2 Ratio Arterial Blood 3.31 %; Total Hemoglobin 8.9 g/dL (12.0-18.0); pH ABG 7.472 (7.350-7.450)
[2021-07-21 19:02] LABS: Arterial Blood Gas PEEP 5 cmH2O; Arterial Blood Gas Vent Mode ASV; Device VENTILATOR; Modified Allen's Test Unable to perform; Site Drawn RIGHT RADIAL
[2021-07-21] MEDS: ALBUMIN HUMAN 5% 25 GM/500 ML BTL IV CONT (21:31)
[2021-07-22] VITALS (26 sets, daily range): BP systolic 117–187; BP diastolic 50–69; PULSE 56–98; RESP 10–20; TEMP 36.6–37.5; O2SAT 95–100
[2021-07-22 00:07] LABS: Glucose Point of Care 226 mg/dl (65-105)
[2021-07-22] MEDS: INSULIN ASPART (*BKC) 100 UNITS/ML SUB-Q (00:08)
[2021-07-22 05:11] LABS: Alveolar/Arterial O2 Gradient 53.9 mmHg; Carboxyhemoglobin 0.3 % THb (0-2.0); Fractional Inspired Oxygen 25 %; HCO3 ABG 27.2 mEq/l (22.0-26.0); Methemoglobin ABG 0.5 %THb (0-1.5); Oxygen Content ABG 11.3 %vol (16.0-22.0); Oxygen Saturation ABG 95.9 % (95.0-100.0); Oxyhemoglobin 93.6 % THb (90.0-100.0); PCO2 ABG 40.1 mmHg (35.0-45.0); PO2 ABG 76.7 mmHg (80.0-100.0); PO2 FiO2 Ratio Arterial Blood 3.07 %; Reduced Hemoglobin 5.6 %THb (0-5.0); Total Hemoglobin 8.5 g/dL (12.0-18.0); pH ABG 7.449 (7.350-7.450)
[2021-07-22 05:12] LABS: Modified Allen's Test Pass; Site Drawn LEFT RADIAL
[2021-07-22 05:13] LABS: Arterial Blood Gas PEEP 5 cmH2O; Arterial Blood Gas Vent Mode ASV; Device VENTILATOR
[2021-07-22 05:38] LABS: Basophils Percent Auto 0.3 % (0.2-1.2); Eosinophils Absolute Auto 0.2 K/mm3 (0-0.3); Hematocrit 24.9 % (37.0-47.0); Hemoglobin 7.6 g/dL (12.0-15.0); Immature Granulocyte Absolute 0.17 K/mm3 (0.00-0.031); Immature Granulocyte Percent A 1.7 % (0-0.5); Lymphocytes Absolute Auto 0.86 K/mm3 (0.9-3.2); Lymphocytes Percent Auto 8.5 % (18.3-44.2); Mean Corpuscular HGB Conc 30.5 g/dl (32-36); Mean Corpuscular Hemoglobin 30.2 pg (26-34); Mean Corpuscular Volume 98.8 fl (80-100); Mean Platelet Volume 10.1 fl (7.4-10.4); Monocytes Absolute Auto 0.9 K/mm3 (0.1-0.6); Monocytes Percent Auto 9.1 % (2.6-8.5); Neutrophils Absolute Auto 7.9 K/mm3 (1.3-6.7); Neutrophils Percent Auto 78.4 % (45.5-73.1); Nucleated Red Blood Cells Perc 0.2 % (0.0-0.2); Platelet Count Result 145 k/mm3 (150-375); Red Blood Count 2.52 M/mm3 (4.2-5.4); Red Cell Distribution Width 15.2 % (11.5-14.5); White Blood Count 10.1 K/mm3 (4.5-10.0)
[2021-07-22 05:48] LABS: INR 1.1; Prothrombin Time 13.6 Seconds (11.1-14.7)
[2021-07-22 05:49] LABS: Partial Thromboplastin Time 36.9 SECONDS (22.3-36.8)
[2021-07-22 05:55] LABS: Alanine Aminotransferase 9 U/L (6-35); Alkaline Phosphatase 96 U/L (38-126); Anion Gap 8 mmol/L (8-16); Aspartate Amino Transferase 25 U/L (14-36); Bilirubin,Total 0.7 mg/dL (0.2-1.3); Blood Urea Nitrogen 59 mg/dL (7-17); Carbon Dioxide 26 mmol/L (22-30); Chloride 105 mmol/L (98-107); Estimated CRCL calculation 10 ml/min; Estimated Glomerular Filt Rate 11; Glucose 179 mg/dL (65-110); Magnesium 2.1 mg/dL (1.6-2.3); Phosphorus 3.6 mg/dL (2.5-4.5); Potassium 3.7 mmol/L (3.4-5.0); Sodium 139 mmol/L (137-145)
[2021-07-22] MEDS: LEVOTHYROXINE SODIUM 50 MCG TABLET PO (06:04)
[2021-07-22] MEDS: fentaNYL CITRATE INJ (*CRX) 100 MCG/2 ML VIAL 50 MCG IV PUSH ×4 (08:11→13:56)
[2021-07-22] MEDS: PANTOPRAZOLE SODIUM IV 40 MG VIAL IV PUSH ×2 (08:12→20:20)
[2021-07-22] MEDS: MINERAL OIL/WHITE PETROLATUM OINTMENT 1 APPLIC EACH EYE ×2 (08:13→20:20)
[2021-07-22] MEDS: ATORVASTATIN 20 MG TABLET PO (08:13)
[2021-07-22] MEDS: CHOLECALCIFEROL 1,000 UNITS TABLET 2000 UNITS PO (08:14)
[2021-07-22] MEDS: calcitrioL 0.25 MCG CAPSULE PO ×2 (08:14→17:42)
[2021-07-22] MEDS: SODIUM BICARBONATE TAB 650 MG TABLET 1300 MG PO ×2 (08:20→17:42)
--- NOTE | 2021-07-22 08:28 | WPDINTPN ---
Progress Note: A&P Assessment and Plan (1) Acute respiratory failure: Code(s): J96.00 - Acute respiratory failure, unspecified whether with hypoxia or hypercapnia Status: Acute Assessment and Plan: Acute respiratory failure likely related to cardiac arrest ABG reviewed and will continue ASV to 90% minute ventilation Will keep patient on the ventilator through today as patient will be going back to OR later this afternoon and will try to extubate post procedure Chest x-ray reviewed Continue Versed sedation due to bradycardia (2) Cardiac arrest: Code(s): I46.9 - Cardiac arrest, cause unspecified Status: Acute Assessment and Plan: Patient had a very brief 3-4 minute cardiac arrest as she went into asystole after manipulation of the carotid region to access the right IJ for dialysis catheter. -return of spontaneous circulation within 4 minutes -patient was intubated in the OR -could be related to vagal stimulation of the carotid region, also could be related to propofol she was initially bradycardic -patient hemodynamically stable with adequate blood pressures but remains bradycardic in the 50s, -bradycardia has improved -patient is awake, follows simple commands and nods to questions (3) Essential (primary) hypertension: Code(s): I10 - Essential (primary) hypertension Status: Chronic Assessment and Plan: Blood pressure medications on hold due to low blood pressure on sedation Will order p.r.n. hydralazine for now (4) Acute worsening of stage 4 chronic kidney disease: Code(s): N18.4 - Chronic kidney disease, stage 4 (severe) Status: Acute Assessment and Plan: Acute on chronic kidney disease, creatinine increased during the course of stay in the hospital. She was deemed to received hemodialysis -07/18 right IJ tunnel dialysis catheter was attempted but patient had a cardiac arrest, so a temporary right femoral vein dialysis catheter was inserted with a pigtail -nephrology following the patient -07/18 and 07/20: Patient was dialyzed -general surgery plans to change dialysis catheter today in OR -dialysis per Nephrology (5) Congestive heart failure: Qualifiers: Heart failure chronicity: acute on chronic Heart failure type: diastolic Qualified Code(s): I50.33 - Acute on chronic diastolic (congestive) heart failure Code(s): I50.9 - Heart failure, unspecified Status: Chronic Assessment and Plan: Chest x-ray shows mild pulmonary edema which is improved since starting hemodialysis (6) Anemia: Qualifiers: Anemia type: due to chronic kidney disease Chronic kidney disease stage: stage 4 (severe) Qualified Code(s): N18.4 - Chronic kidney disease, stage 4 (severe); D63.1 - Anemia in chronic kidney disease Code(s): D64.9 - Anemia, unspecified Status: Chronic Assessment and Plan: Most likely multifactorial. Patient dropped hemoglobin to 6.6 post cardiac arrest and received 2 units of packed RBC Hemoglobin has been gradually trending down since then No obvious source of bleed. 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: Qualifiers: Diabetes mellitus supervisor intermediates insulin use: without care home use Diabetes mellitus complication detail: with chronic kidney disease Chronic kidney disease stage: stage 4 (severe) Qualified Code(s): E11.22 - Type 2 diabetes mellitus with diabetic chronic kidney disease; N18.4 - Chronic kidney disease, stage 4 (severe) Code(s): E11.29 - Type 2 diabetes mellitus with other diabetic kidney complication Status: Chronic Assessment and Plan: Continue sliding scale insulin Accu-Cheks (8) Hypothyroidism, unspecified: Qualifiers: Hypothyroidism type: acquired Qualified Code(s): E03.9 - Hypothyroidism, unspecified Co
[2021-07-22] MEDS: hydrALAZINE HCL 20 MG/ML VIAL IV PUSH (10:20)
--- NOTE | 2021-07-22 10:53 | PCFNICU ---
ICU Rounding Note: Pt current nutrition is NPO with tube feedings on hold due to surgery today. Nutrition recommendation: Initial tube feeds when appropriate and resume previous goal Last recorded weight is 94.4 kg. Bowel Motility: Hypoactive bowel sounds, no BM recorded at this time Labs Reviewed: Hgb:7.6, HCT:24.9, Alb:3.0, BUN:59, CRE:4.7,Gluc:179 Meds Noted: Ativan, zofran, lipitor, no sedation at this time Skin:WNL Additional Notes: Pt continues on mechanical ventilation. Tube feedings were running at 40ml/hr of Nepro and tolerating well. Currently on hold for surgery for dialysis catheter placement today. Continue with goal to increase tube feeds to 45ml/hr when restarted to provide 1782kcals, 80g PRO. Following daily in ICU rounds. Will monitor every Tuesday and Tuesday..
--- NOTE | 2021-07-22 12:17 | P.PNNP_ITS ---
Progress Note: A&P Assessment and Plan (1) End stage renal disease: Code(s): N18.6 - End stage renal disease Status: Chronic Assessment and Plan: * due to progression of disease from HTN, DM, vascular disease, and age * plan tunneled HD catheter placement later today * likely plan HD treatment tomorrow morning (2) Cardiac arrest: Code(s): I46.9 - Cardiac arrest, cause unspecified Status: Acute Assessment and Plan: * brief 3 - 4 minute cardiac arrest (asystole after manipulation of the carotid region to access the right IJ for dialysis catheter placement in OR) * ROSC within 4 minutes * due to vagal stimulation of carotid region versus reaction to propofol(?) * hemodynamically stable but issues with bradycardia * bradycardia was better yesterday but noted again this AM (3) Acute respiratory failure: Code(s): J96.00 - Acute respiratory failure, unspecified whether with hypoxia or hypercapnia Status: Acute Assessment and Plan: * related to cardiac arrest * follow CXR and ABGs * wean for ventilator as tolerated (4) CHF exacerbation: Code(s): I50.9 - Heart failure, unspecified Status: Acute Assessment and Plan: * as noted by CXR results * fluid removal as tolerated by dialysis * still makes some urine so not opposed to trial of IV diuretics (5) Essential (primary) hypertension: Code(s): I10 - Essential (primary) hypertension Status: Chronic Assessment and Plan: * better trend today * BP medications with paramenters * follow trend of hemodynamics (6) Anemia: Qualifiers: Anemia type: due to chronic kidney disease Chronic kidney disease stage: stage 4 (severe) Qualified Code(s): N18.4 - Chronic kidney disease, stage 4 (severe); D63.1 - Anemia in chronic kidney disease Code(s): D64.9 - Anemia, unspecified Status: Chronic Assessment and Plan: * low H/H noted * likely due to ESRD * Epogen with HD * PRBC transfusion with HD (on 07/18/21) * follow H/H (7) Diabetes: Code(s): E11.9 - Type 2 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 Subjective Date/time seen: 07/22/21 12:17 Remains on mechanical ventilation support at this time; fluctuating hemodynamics noted but BP responded to IV albumin and holding medications; noted plans for new HD catheter placement later this afternoon; no other issues/events overnight or earlier this AM. Exam 2 Narrative: General: Elderly AA female intubated and on mechanical ventilation Heart: normal S1 and S2; no rub Lungs: coarse breath sounds throughout Abdomen: soft, nontender, nondistended, positive bowel sounds Extremities: no cyanosis or clubbing; trace edema Skin: warm and dry Objective Data Vital Signs Vital Signs: Vital Signs Temp Pulse Resp BP Pulse Ox 07/22/21 12:00 69 20 07/22/21 11:15 74 100 07/22/21 10:00 37.4 C 77 16 167/69 H 100 07/22/21 09:00 64 12 07/22/21 08:41 59 L 100 07/22/21 08:00 37.5 C 75 12 187/65 H 100 07/22/21 07:00 70 12 07/22/21 05:53 37.3 C 72 19 158/61 H 98 07/22/21 04:55 73 98 07/22/21 04:00 37.3 C 72 17 132/52 L 98 07/22/21 02:22 74 99
--- NOTE | 2021-07-22 12:17 | PM.PNNEP ---
Progress Note: A&P Assessment and Plan (1) End stage renal disease: Code(s): N18.6 - End stage renal disease Status: Chronic Assessment and Plan: due to progression of disease from HTN, DM, vascular disease, and age plan tunneled HD catheter placement later today likely plan HD treatment tomorrow morning (2) Cardiac arrest: Code(s): I46.9 - Cardiac arrest, cause unspecified Status: Acute Assessment and Plan: brief 3 - 4 minute cardiac arrest (asystole after manipulation of the carotid region to access the right IJ for dialysis catheter placement in OR) ROSC within 4 minutes due to vagal stimulation of carotid region versus reaction to propofol(?) hemodynamically stable but issues with bradycardia bradycardia was better yesterday but noted again this AM (3) Acute respiratory failure: Code(s): J96.00 - Acute respiratory failure, unspecified whether with hypoxia or hypercapnia Status: Acute Assessment and Plan: related to cardiac arrest follow CXR and ABGs wean for ventilator as tolerated (4) CHF exacerbation: Code(s): I50.9 - Heart failure, unspecified Status: Acute Assessment and Plan: as noted by CXR results fluid removal as tolerated by dialysis still makes some urine so not opposed to trial of IV diuretics (5) Essential (primary) hypertension: Code(s): I10 - Essential (primary) hypertension Status: Chronic Assessment and Plan: better trend today BP medications with paramenters follow trend of hemodynamics (6) Anemia: Qualifiers: Anemia type: due to chronic kidney disease Chronic kidney disease stage: stage 4 (severe) Qualified Code(s): N18.4 - Chronic kidney disease, stage 4 (severe); D63.1 - Anemia in chronic kidney disease Code(s): D64.9 - Anemia, unspecified Status: Chronic Assessment and Plan: low H/H noted likely due to ESRD Epogen with HD PRBC transfusion with HD (on 07/18/21) follow H/H (7) Diabetes: Code(s): E11.9 - Type 2 diabetes mellitus without complications Status: Chronic Assessment and Plan: follow accuchecks on SSI Will continue to follow. Subjective Date/time seen: 07/22/21 12:17 Remains on mechanical ventilation support at this time; fluctuating hemodynamics noted but BP responded to IV albumin and holding medications; noted plans for new HD catheter placement later this afternoon; no other issues/events overnight or earlier this AM. Exam Narrative: General: Elderly AA female intubated and on mechanical ventilation Heart: normal S1 and S2; no rub Lungs: coarse breath sounds throughout Abdomen: soft, nontender, nondistended, positive bowel sounds Extremities: no cyanosis or clubbing; trace edema Skin: warm and dry Objective Data Vital Signs Vital Signs: Vital Signs Temp Pulse Resp BP Pulse Ox 07/22/21 12:00 69 20 07/22/21 11:15 74 100 07/22/21 10:00 37.4 C 77 16 167/69 H 100 07/22/21 09:00 64 12 07/22/21 08:41 59 L 100 07/22/21 08:00 37.5 C 75 12 187/65 H 100 07/22/21 07:00 70 12 07/22/21 05:53 37.3 C 72 19 158/61 H 98 07/22/21 04:55 73 98 07/22/21 04:00 37.3 C 72 17 132/52 L 98 07/22/21 02:22 74 99 07/22/21 02:00 36.8 C 70 13 128/50 L 98 07/22/21 00:00 36.9 C 69 14 117/51 L 99 07/21/21 23:10 70 98 07/21/21 22:00 37.1 C 58 L 12 115/45 L 99 07/21/21 20:20 99 14 07/21/21 20:00 36.9 C 92 17 127/57 L 99 07/21/21 18:44 80/37 L 07/21/21 18:00 53 L 07/21/21 17:32 37.1 C 61 18 106/88 99 07/21/21 17:17 55 L 99 07/21/21 16:00 53 L 99 07/21/21 15:51 36.6 C 55 L 13 98/42 L 99 07/21/21 15:17 66 19 07/21/21 14:11 59 L 100 07/21/21 14:00 55 L 11 L 98/40 L 100 Intake/Output Intake/Output: Intake & Output 07/19/21 07/20/21 07/21/21 07/22/21
[2021-07-22 12:38] LABS: Glucose Point of Care 141 mg/dl (65-105)
--- NOTE | 2021-07-22 13:41 | PC.NURSE ---
Patient transferred to CT via bed with RN and RT at bedside. Patient returned to room without issue.
[2021-07-22] MEDS: FENTANYL 2,500MCG/NS250ML(*CRX 2,500 MCG/250 ML BAG IV CONT (13:57)
[2021-07-22 14:10] LABS: Hepatitis B Core Ab Total Reactive (Nonreactive)
--- NOTE | 2021-07-22 15:17 | P.HPUP_ITS ---
History and Physical Update Update Date/Time: 07/22/21 15:17 History and Physical has been reviewed, including an updated exam of the patient. There are changes in the patient's condition. Patient had a cardiac event with bradycardia and low blood pressure 4 days ago and only a temporary hemodialysis catheter was placed in the right groin. Now she has been in ICU intubated and has improved she actually has had high bright blood pressure. Still is in need of dialysis. Therefore with her more stable and still intubated we were asked to place a tunneled dialysis catheter for more permanent hemodialysis. Is felt she is stable enough to come from ICU while intubated to have this placed then today. Risks, benefits, and alternatives have been discussed with the patient's power of workers compensation defense attorney daughter and questions answered. Patient's daughter/POA agrees to proceed with procedure.
--- NOTE | 2021-07-22 15:30 | PC.NURSE ---
Patient transferred to OR hold via bed without issue.
[2021-07-22] MEDS: ceFAZolin SODIUM 1 GM VIAL 2 GM IV PUSH (15:51)
[2021-07-22] MEDS: HEPARIN SODIUM 1,000 UNITS/ML VIAL 1000 UNITS IV PUSH (16:01)
[2021-07-22] MEDS: HEPARIN SODIUM, PORCINE 10,000 UNITS/10 ML VIAL 10000 UNITS IV PUSH (16:22)
--- NOTE | 2021-07-22 16:43 | PC.NURSE ---
Patient returned from OR without issue.
--- NOTE | 2021-07-22 16:43 | W.PM.PROC2 ---
Procedure Note - Detailed Date of Procedure 07/22/21 Pre-op Diagnosis 1. End-stage kidney disease with need for dialysis. 2. Uncontrolled HTN, Nausea, CKD Post-op Diagnosis Same Procedure Performed Ultrasound-guided placement of tunneled dialysis catheter. Surgeon Joaquin Evans MD Rig Supervisor Amber [email or web address].OR assistant toddler teacher Anesthesia Local (2% xylocaine with epinephrine) and Other (GIVS the indwelling endotracheal tube.) Indications The patient has end-stage renal disease with need for access for hemodialysis Findings Normal Vascular anatomy in the Rt. neck. There appeared to be a dilated external jugular vein slightly posterior and above the internal jugular vein. Description of Procedure The patient was placed in the supine position on the operating table and using the existing Endotracheal tube general anesthesia/IV sedationwas established by the nurse roll shop supervisor/anesthesiologist team. We carefully rotated the patient's head and tilted it slightly to the left. Then prepped both sides of the neck and chest with chlorhexidine. After waiting 3 minutes I carefully draped the patient, and we performed a time-out confirming the patient's site and type of surgery. Because of the patients size, a 32 cm DuraFlow catheter was selected. Using the ultrasound probe we carefully examined the anatomy in the right neck and saved a image of this in the chart. I used ultrasound to identify the right jugular vein in the mid neck and this was cannulated under direct vision with an 18-gauge Arrow needle on a syringe. Good dark blood was aspirated, the J-guidewire was advanced through the needle and into the central venous system using the usual Seldinger technique. C-arm fluoroscopy was used to confirm that the wire was then through the central venous system and then we removed the needle and blue guide off the wire. Following this, we measured the DuraFlow catheter such that the tip would be just into the right atrium or in the distal superior vena cava. A hemostat was placed on the drapes over the chest to guide where we would place this. Then the catheter was measured back to the entry site of the J- wire in a curvilinear fashion and down to the patient's chest overlying the right clavicle. Local anesthetic was placed into 3 mccoy, the exit site and then 2 more on the patient's lateral neck such that a curvilinear path could be dissected through the subcutaneous tissues up to the insertion site on he patients right neck. Local anesthetic was infiltrated along the tract prior to tunneling. Incisions were made with a 15 blade knife at the exit site and the 2 counter incisions and then an 11 blade at the wire. The tunneling device was connected to the catheter and this was pulled through these incisions to make the subcutaneous tunnel a curvilinear course through the subcutaneous tissues to the insertion site. Then the wire was serially dilated with a 12, 14, and then a 16-Palestinian dilator over the pull away sheath. We watched the 16-Palestinian dilator and sheath go down into the central venous system with C-arm fluoroscopy and then removed the dilator wire after carefully covering the end of the catheter. I lost some blood, as we then inserted the catheter down into the central venous system. The catheter was held in place with a DeBakey forceps and then we carefully tore away the sheath leaving the catheter within the subcutaneous tissues and down into the jugular vein. It appeared that I placed about 16 cm of the catheter from the insertion site down into the patient for the tip to be at the right point at the caval atrial junction. Following this, C-arm fluoroscopy was used to examine the full course of the catheter. The tip was just into the right atrium and there was a good curvilinear course of the catheter in the neck down to the exit site over the right clavicle. Minimal bleeding was continuing, so we then went ahead and closed these incisions with some buried murrell
[2021-07-22] MEDS: MIDAZOLAM 100MG/NS 100ML(*CRX) 100 MG/100 ML BAG IV CONT (17:40)
[2021-07-22] MEDS: LATANOPROST 0.005% OP SOLN 2.5 ML BTL 1 DROP EACH EYE (17:42)
[2021-07-22 18:29] LABS: Glucose Point of Care 120 mg/dl (65-105)
[2021-07-23] VITALS (33 sets, daily range): BP systolic 116–180; BP diastolic 53–86; PULSE 56–88; RESP 12–19; TEMP 36.6–37.2; O2SAT 96–100
[2021-07-23 00:42] LABS: Glucose Point of Care 144 mg/dl (65-105)
[2021-07-23 04:51] LABS: Basophils Absolute Auto 0.1 K/mm3 (0.0-0.1); Basophils Percent Auto 0.6 % (0.2-1.2); Eosinophils Absolute Auto 0.3 K/mm3 (0-0.3); Eosinophils Percent Auto 3.3 % (0-4.4); Hematocrit 25.9 % (37.0-47.0); Hemoglobin 8.2 g/dL (12.0-15.0); Immature Granulocyte Absolute 0.16 K/mm3 (0.00-0.031); Immature Granulocyte Percent A 1.9 % (0-0.5); Lymphocytes Absolute Auto 0.92 K/mm3 (0.9-3.2); Lymphocytes Percent Auto 11.1 % (18.3-44.2); Mean Corpuscular HGB Conc 31.7 g/dl (32-36); Mean Corpuscular Hemoglobin 30.7 pg (26-34); Mean Platelet Volume 9.9 fl (7.4-10.4); Monocytes Absolute Auto 0.8 K/mm3 (0.1-0.6); Monocytes Percent Auto 9.2 % (2.6-8.5); Neutrophils Absolute Auto 6.1 K/mm3 (1.3-6.7); Neutrophils Percent Auto 73.9 % (45.5-73.1); Nucleated Red Blood Cells Perc 0.2 % (0.0-0.2); Platelet Count Result 164 k/mm3 (150-375); Red Blood Count 2.67 M/mm3 (4.2-5.4); Red Cell Distribution Width 14.9 % (11.5-14.5); White Blood Count 8.3 K/mm3 (4.5-10.0)
[2021-07-23 05:06] LABS: Alanine Aminotransferase 7 U/L (6-35); Albumin Level 2.8 g/dL (3.5-5.1); Alkaline Phosphatase 98 U/L (38-126); Anion Gap 5 mmol/L (8-16); Aspartate Amino Transferase 21 U/L (14-36); Bilirubin,Total 0.5 mg/dL (0.2-1.3); Blood Urea Nitrogen 58 mg/dL (7-17); Calcium 8.2 mg/dL (8.4-10.2); Carbon Dioxide 28 mmol/L (22-30); Chloride 104 mmol/L (98-107); Estimated CRCL calculation 10 ml/min; Estimated Glomerular Filt Rate 11; Glucose 160 mg/dL (65-110); Magnesium 2.1 mg/dL (1.6-2.3); Phosphorus 3.4 mg/dL (2.5-4.5); Potassium 3.6 mmol/L (3.4-5.0); Sodium 137 mmol/L (137-145)
[2021-07-23 05:12] LABS: Alveolar/Arterial O2 Gradient 51.7 mmHg; Base Excess ABG 3.1 mEq/l (+/-2.0); Carboxyhemoglobin 0.3 % THb (0-2.0); Fractional Inspired Oxygen 25 %; HCO3 ABG 26.2 mEq/l (22.0-26.0); Methemoglobin ABG 0.3 %THb (0-1.5); Oxygen Content ABG 13.8 %vol (16.0-22.0); Oxygen Saturation ABG 97.3 % (95.0-100.0); Oxyhemoglobin 95.5 % THb (90.0-100.0); PCO2 ABG 34.2 mmHg (35.0-45.0); PO2 ABG 85.9 mmHg (80.0-100.0); PO2 FiO2 Ratio Arterial Blood 3.44 %; Reduced Hemoglobin 3.9 %THb (0-5.0); Total Hemoglobin 10.2 g/dL (12.0-18.0)
[2021-07-23 05:13] LABS: Arterial Blood Gas PEEP 5 cmH2O; Arterial Blood Gas Vent Mode ASV; Device VENTILATOR; Modified Allen's Test Pass; Site Drawn LEFT RADIAL; pH ABG 7.502 (7.350-7.450)
[2021-07-23] MEDS: LEVOTHYROXINE SODIUM 50 MCG TABLET PO (05:53)
[2021-07-23] MEDS: SODIUM BICARBONATE TAB 650 MG TABLET 1300 MG PO ×2 (09:03→16:17)
[2021-07-23] MEDS: ATORVASTATIN 20 MG TABLET PO (09:03)
[2021-07-23] MEDS: PANTOPRAZOLE SODIUM IV 40 MG VIAL IV PUSH ×2 (09:03→20:54)
[2021-07-23] MEDS: calcitrioL 0.25 MCG CAPSULE PO ×2 (09:03→16:19)
[2021-07-23 09:04] LABS: Alveolar/Arterial O2 Gradient 55.7 mmHg; Base Excess ABG 0.5 mEq/l (+/-2.0); Carboxyhemoglobin 0.3 % THb (0-2.0); Fractional Inspired Oxygen 25 %; HCO3 ABG 24.7 mEq/l (22.0-26.0); Methemoglobin ABG 0.3 %THb (0-1.5); Oxygen Content ABG 12.5 %vol (16.0-22.0); Oxygen Saturation ABG 95.9 % (95.0-100.0); Oxyhemoglobin 93.6 % THb (90.0-100.0); PCO2 ABG 37.8 mmHg (35.0-45.0); PO2 ABG 77.7 mmHg (80.0-100.0); PO2 FiO2 Ratio Arterial Blood 3.11 %; Reduced Hemoglobin 5.8 %THb (0-5.0); Total Hemoglobin 9.4 g/dL (12.0-18.0); pH ABG 7.433 (7.350-7.450)
[2021-07-23] MEDS: MINERAL OIL/WHITE PETROLATUM OINTMENT 1 APPLIC EACH EYE (09:04)
[2021-07-23] MEDS: hydrALAZINE HCL 20 MG/ML VIAL IV PUSH (09:07)
[2021-07-23 09:08] LABS: Device VENTILATOR; Modified Allen's Test Pass; Site Drawn RIGHT RADIAL
[2021-07-23 09:09] LABS: Arterial Blood Gas PEEP 5 cmH2O; Arterial Blood Gas Pressure Support 5 cmH2O; Arterial Blood Gas Vent Mode SPONTANEOUS
--- NOTE | 2021-07-23 09:20 | WPDINTPN ---
Progress Note: A&P Assessment and Plan (1) Acute respiratory failure: Code(s): J96.00 - Acute respiratory failure, unspecified whether with hypoxia or hypercapnia Status: Acute Assessment and Plan: Acute respiratory failure likely related to cardiac arrest Chest x-ray reviewed and ETT advanced 5/5 PSV SBT done for more than 1/2 hour. RSBI, ABGI and Vitals acceptable. Pt awake and following commands. Will extubate and monitor. NPO for now (2) Cardiac arrest: Code(s): I46.9 - Cardiac arrest, cause unspecified Status: Acute Assessment and Plan: Patient had a very brief 3-4 minute cardiac arrest as she went into asystole after manipulation of the carotid region to access the right IJ for dialysis catheter. -return of spontaneous circulation within 4 minutes -patient was intubated in the OR -could be related to vagal stimulation of the carotid region, also could be related to propofol she was initially bradycardic -patient hemodynamically stable with adequate blood pressures but remains bradycardic in the 50s, -bradycardia has improved -patient is awake, follows simple commands and nods to questions (3) Essential (primary) hypertension: Code(s): I10 - Essential (primary) hypertension Status: Chronic Assessment and Plan: Blood pressure medications on hold due to low blood pressure on sedation Will resume now S patient is now extubated Will order p.r.n. hydralazine for now (4) Acute worsening of stage 4 chronic kidney disease: Code(s): N18.4 - Chronic kidney disease, stage 4 (severe) Status: Acute Assessment and Plan: Acute on chronic kidney disease, creatinine increased during the course of stay in the hospital. She was deemed to received hemodialysis -07/18 right IJ tunnel dialysis catheter was attempted but patient had a cardiac arrest, so a temporary right femoral vein dialysis catheter was inserted with a pigtail -nephrology following the patient -07/18 and 07/20: Patient was dialyzed -07/22 new right IJ tunneled dialysis catheter was placed. -patient is scheduled for dialysis today. If the dialysis catheter works adequately will remove femoral temporary dialysis catheter -dialysis per Nephrology (5) Congestive heart failure: Qualifiers: Heart failure chronicity: acute on chronic Heart failure type: diastolic Qualified Code(s): I50.33 - Acute on chronic diastolic (congestive) heart failure Code(s): I50.9 - Heart failure, unspecified Status: Chronic Assessment and Plan: Chest x-ray shows mild pulmonary edema which is improved since starting hemodialysis (6) Anemia: Qualifiers: Anemia type: due to chronic kidney disease Chronic kidney disease stage: stage 4 (severe) Qualified Code(s): N18.4 - Chronic kidney disease, stage 4 (severe); D63.1 - Anemia in chronic kidney disease Code(s): D64.9 - Anemia, unspecified Status: Chronic Assessment and Plan: Most likely multifactorial. Patient dropped hemoglobin to 6.6 post cardiac arrest and received 2 units of packed RBC Hemoglobin has been gradually trending down since then No obvious source of bleed. Will continue to monitor blood counts and transfuse as needed PPI IV q.[address] scan of abdomen pelvis was negative for any hematoma (7) Type II diabetes mellitus with renal manifestations: Qualifiers: Diabetes mellitus skilled nursing insulin use: without skilled nursing use Diabetes mellitus complication detail: with chronic kidney disease Chronic kidney disease stage: stage 4 (severe) Qualified Code(s): E11.22 - Type 2 diabetes mellitus with diabetic chronic kidney disease; N18.4 - Chronic kidney disease, stage 4 (severe) Code(s): E11.29 - Type 2 diabetes mellitus with other diabetic kidney complication Status: Chronic Assessment and Plan: Continue sliding scale insulin Accu-Cheks (8) Hypothyroidism, unspecified: Qualifiers:
[2021-07-23] MEDS: CHOLECALCIFEROL 1,000 UNITS TABLET 2000 UNITS PO (09:30)
--- NOTE | 2021-07-23 11:20 | PCFNICU ---
ICU Rounding Note: Pt current nutrition is NPO. Last recorded weight is 96.8 kg, up from 96.6 kg on admit. Bowel Motility:hypoactive bowel sounds, No BM reported. Labs Reviewed: Glu 160, BUN 58, Cr 4.8,Alb 2.8,Hgb 8.2,Hct 25.9 Meds Noted:Protonix, Sodium Bicarbonate Tab, Ativan, Lipitor, Rocaltrol, Apresoline Skin: WNL Additional Notes: Patient has been extubated today. NPO at this time with plans to advance diet as tolerated per MD orders. Dialysis today. Following daily in ICU rounds and reassessing every 3 days.
[2021-07-23 12:01] LABS: Glucose Point of Care 129 mg/dl (65-105)
--- NOTE | 2021-07-23 12:15 | P.PNNP_ITS ---
Progress Note: A&P Assessment and Plan (1) End stage renal disease: Code(s): N18.6 - End stage renal disease Status: Chronic Assessment and Plan: * due to progression of disease from HTN, DM, vascular disease, and age * s/p tunneled HD catheter placement (on 07/22/21) * HD today and likely again on Tuesday (2) Cardiac arrest: Code(s): I46.9 - Cardiac arrest, cause unspecified Status: Acute Assessment and Plan: * brief 3 - 4 minute cardiac arrest (asystole after manipulation of the carotid region to access the right IJ for dialysis catheter placement in OR) * ROSC within 4 minutes * due to vagal stimulation of carotid region versus reaction to propofol(?) * hemodynamically stable (3) Acute respiratory failure: Code(s): J96.00 - Acute respiratory failure, unspecified whether with hypoxia or hyperca pnia Status: Acute Assessment and Plan: * extubated (on 07/23/21) * related to cardiac arrest * follow CXR (4) CHF exacerbation: Code(s): I50.9 - Heart failure, unspecified Status: Acute Assessment and Plan: * as noted by CXR results * fluid removal as tolerated by dialysis * still makes some urine so not opposed diuretics as well (5) Essential (primary) hypertension: Code(s): I10 - Essential (primary) hypertension Status: Chronic Assessment and Plan: * elevated today - follow post HD * continue current BP medications - if bradycardia issues resolved, consider adding labetalol * follow trend of hemodynamics (6) Anemia: Qualifiers: Anemia type: due to chronic kidney disease Chronic kidney disease stage: stage 4 (severe) Qualified Code(s): N18.4 - Chronic kidney disease, stage 4 (severe); D63.1 - Anemia in chronic kidney disease Code(s): D64.9 - Anemia, unspecified Status: Chronic Assessment and Plan: * low H/H noted * likely due to ESRD * Epogen with HD * PRBC transfusion with HD (on 07/18/21) * follow H/H (7) Diabetes: Code(s): E11.9 - Type 2 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 Subjective Date/time seen: 07/23/21 12:15 S/P tunneled HD catheter placement yesterday afternoon; extubated earlier this AM as well; tolerating HD treatment at the time of my visit (seen on HD at 12:00pm); no acute distress noted; able to answer questions without any problems. Exam Narrative: General: Elderly AA female in NAD Heart: normal S1 and S2; no rub Lungs: coarse breath sounds throughout Abdomen: soft, nontender, nondistended, positive bowel sounds Extremities: no cyanosis or clubbing; trace edema Skin: warm and intact Objective Data Vital Signs Vital Signs: Vital Signs Temp Pulse Resp BP Pulse Ox 07/23/21 12:00 79 170/66 H 07/23/21 11:45 78 165/62 H 07/23/21 11:30 76 162/63 H 07/23/21 11:15 81 163/60 H 07/23/21 11:00 36.6 C 80 19 167/67 H 99 07/23/21 09:24 97 07/23/21 08:15 69 96 07/23/21 08:00 36.7 C 65 14 180/72 H 99 07/23/21 06:00 36.8 C 63 13 170/66 H 99 07/23/21 05:00 62 100 07/23/21 04:00 36.8 C 64 12 162/72 H 98 07/23/21 02:40 62 100 07/23/21 02:00 36.6 C 60 12 149/63 H 10
--- NOTE | 2021-07-23 12:15 | PM.PNNEP ---
Progress Note: A&P Assessment and Plan (1) End stage renal disease: Code(s): N18.6 - End stage renal disease Status: Chronic Assessment and Plan: due to progression of disease from HTN, DM, vascular disease, and age s/p tunneled HD catheter placement (on 07/22/21) HD today and likely again on Tuesday (2) Cardiac arrest: Code(s): I46.9 - Cardiac arrest, cause unspecified Status: Acute Assessment and Plan: brief 3 - 4 minute cardiac arrest (asystole after manipulation of the carotid region to access the right IJ for dialysis catheter placement in OR) ROSC within 4 minutes due to vagal stimulation of carotid region versus reaction to propofol(?) hemodynamically stable (3) Acute respiratory failure: Code(s): J96.00 - Acute respiratory failure, unspecified whether with hypoxia or hypercapnia Status: Acute Assessment and Plan: extubated (on 07/23/21) related to cardiac arrest follow CXR (4) CHF exacerbation: Code(s): I50.9 - Heart failure, unspecified Status: Acute Assessment and Plan: as noted by CXR results fluid removal as tolerated by dialysis still makes some urine so not opposed diuretics as well (5) Essential (primary) hypertension: Code(s): I10 - Essential (primary) hypertension Status: Chronic Assessment and Plan: elevated today - follow post HD continue current BP medications - if bradycardia issues resolved, consider adding labetalol follow trend of hemodynamics (6) Anemia: Qualifiers: Anemia type: due to chronic kidney disease Chronic kidney disease stage: stage 4 (severe) Qualified Code(s): N18.4 - Chronic kidney disease, stage 4 (severe); D63.1 - Anemia in chronic kidney disease Code(s): D64.9 - Anemia, unspecified Status: Chronic Assessment and Plan: low H/H noted likely due to ESRD Epogen with HD PRBC transfusion with HD (on 07/18/21) follow H/H (7) Diabetes: Code(s): E11.9 - Type 2 diabetes mellitus without complications Status: Chronic Assessment and Plan: follow accuchecks on SSI Will continue to follow. Subjective Date/time seen: 07/23/21 12:15 S/P tunneled HD catheter placement yesterday afternoon; extubated earlier this AM as well; tolerating HD treatment at the time of my visit (seen on HD at 12:00pm); no acute distress noted; able to answer questions without any problems. Exam Narrative: General: Elderly AA female in NAD Heart: normal S1 and S2; no rub Lungs: coarse breath sounds throughout Abdomen: soft, nontender, nondistended, positive bowel sounds Extremities: no cyanosis or clubbing; trace edema Skin: warm and intact Objective Data Vital Signs Vital Signs: Vital Signs Temp Pulse Resp BP Pulse Ox 07/23/21 12:00 79 170/66 H 07/23/21 11:45 78 165/62 H 07/23/21 11:30 76 162/63 H 07/23/21 11:15 81 163/60 H 07/23/21 11:00 36.6 C 80 19 167/67 H 99 07/23/21 09:24 97 07/23/21 08:15 69 96 07/23/21 08:00 36.7 C 65 14 180/72 H 99 07/23/21 06:00 36.8 C 63 13 170/66 H 99 07/23/21 05:00 62 100 07/23/21 04:00 36.8 C 64 12 162/72 H 98 07/23/21 02:40 62 100 07/23/21 02:00 36.6 C 60 12 149/63 H 100 07/23/21 00:00 36.6 C 56 L 13 134/57 L 99 07/22/21 23:25 58 L 99 07/22/21 22:00 36.8 C 57 L 13 139/53 L 99 07/22/21 20:17 56 L 99 07/22/21 20:00 36.6 C 56 L 13 130/50 L 99 07/22/21 18:00 36.6 C 56 L 13 140/56 L 99 07/22/21 17:41 57 L 13 07/22/21 17:40 57 L 13 07/22/21 17:00 36.8 C 98 15 122/58 L 100 07/22/21 16:59 75 95 07/22/21 14:41 73 100 07/22/21 14:00 37.2 C 63 12 164/59 H 99 07/22/21 13:57 64 14 07/22/21 12:22 75 18 Intake/Output Intake/Output: Intake & Output 05/12/0307/21/21 07/22/21 07/23/21 23:59 23:59 23:59 23:59 Intake Total 292
[2021-07-23] MEDS: hydrALAZINE HCL 50 MG TABLET PO ×2 (12:17→19:43)
[2021-07-23] MEDS: EPOETIN ALFA-EPBX 10,000 UNITS/ML VIAL 10000 UNITS IV PUSH (13:27)
[2021-07-23] MEDS: SODIUM CHLORIDE 0.9% IV 1,000 ML 999 ML IV CONT ×2 (13:31→13:33)
[2021-07-23] MEDS: HEPARIN SODIUM 1,000 UNITS/ML VIAL 5000 UNITS (13:32)
--- NOTE | 2021-07-23 15:43 | PM.IMPN ---
Progress Note: A&P Assessment and Plan (1) End stage renal disease: Code(s): N18.6 - End stage renal disease Status: Chronic Assessment and Plan: due to progression of disease from HTN, DM, vascular disease, and age s/p tunneled HD catheter placement (on 07/22/21) HD today (2) Cardiac arrest: Code(s): I46.9 - Cardiac arrest, cause unspecified Status: Acute Assessment and Plan: brief 3 - 4 minute cardiac arrest (asystole after manipulation of the carotid region to access the right IJ for dialysis catheter placement in OR) ROSC within 4 minutes due to vagal stimulation of carotid region versus reaction to propofol(?) hemodynamically stable (3) Acute respiratory failure: Code(s): J96.00 - Acute respiratory failure, unspecified whether with hypoxia or hypercapnia Status: Acute Assessment and Plan: Extubated improving, appreciate critical care consultation and management (4) CHF exacerbation: Code(s): I50.9 - Heart failure, unspecified Status: Acute Assessment and Plan: Reassess after dialysis (5) Essential (primary) hypertension: Code(s): I10 - Essential (primary) hypertension Status: Chronic Assessment and Plan: elevated today - follow post HD continue current BP medications - if bradycardia issues resolved, consider adding labetalol follow trend of hemodynamics (6) Anemia: Qualifiers: Anemia type: due to chronic kidney disease Chronic kidney disease stage: stage 4 (severe) Qualified Code(s): N18.4 - Chronic kidney disease, stage 4 (severe); D63.1 - Anemia in chronic kidney disease Code(s): D64.9 - Anemia, unspecified Status: Chronic Assessment and Plan: Status post transfusion July 18, Nephrology was giving Epogen and monitoring (7) Diabetes: Code(s): E11.9 - Type 2 diabetes mellitus without complications Status: Chronic Assessment and Plan: follow accuchecks on SSI Will continue to follow. Subjective Date/time seen: 07/23/21 15:43 Interval history: Patient resting comfortably, recently extubated this morning, getting her treatment of hemodialysis. No events noted overnight. Patient denies any pain at this time, does complain of a slight sore throat. Review of Systems Review of Systems: All systems reviewed & are unremarkable except as noted in HPI and below Exam Const: General: no acute distress Other: On 2 L nasal cannula HENMT: Mouth: Yes moist mucous membranes Eyes: General: appearance normal, both eyes and all related structures Neck: Neck: no JVD Resp: Auscultation: diminished lung sounds Cardio: Rate: regular rate Rhythm: regular rhythm GI: Inspection: non-distended GI Palp: Yes Soft to palpation Psych: Mental Status: mental status grossly normal Objective Data Vital Signs Vital Signs: Vital Signs - 24 hr 07/22/21 16:59 07/22/21 17:00 07/22/21 17:40 Temperature 98.2 F Pulse Rate 75 98 57 L Respiratory Rate 15 13 Blood Pressure 122/58 L Pulse Oximetry 95 100 07/22/21 17:41 07/22/21 18:00 07/22/21 20:00 Temperature 97.9 F 98 F Pulse Rate 57 L 56 L 56 L Respiratory Rate 13 13 13 Blood Pressure 140/56 L 130/50 L Pulse Oximetry 99 99 07/22/21 20:17 07/22/21 22:00 07/22/21 23:25 Temperature 98.2 F Pulse Rate 56 L 57 L 58 L Respiratory Rate 13 Blood Pressure 139/53 L Pulse Oximetry 99 99 99 07/23/21 00:00 07/23/21 02:00 07/23/21 02:40 Temperature 98 F 97.9 F Pulse Rate 56 L 60 62 Respiratory Rate 13 12 Blood Pressure 134/57 L 149/63 H Pulse Oximetry 99 100 100 07/23/21 04:00 07/23/21 05:00 07/23/21 06:00 Temperature 98.2 F 98.3 F Pulse Rate 64 62 63 Respiratory Rate 12 13 Blood Pressure 162/72 H 170/66 H Pulse Oximetry 98 100 99 07/23/21 08:00 07/23/21 08:15 07/23/21 09:24 Temperature 98.1 F Pulse Rate 65 69 Respiratory Rate 14 Blood Pressure 180/7
[2021-07-23] MEDS: ENOXAPARIN 30 MG/0.3 ML SYRINGE SUB-Q (16:15)
[2021-07-23] MEDS: amLODIPine BESYLATE 5 MG TABLET PO ×2 (16:19→20:54)
[2021-07-23 18:05] LABS: Glucose Point of Care 136 mg/dl (65-105)
--- NOTE | 2021-07-23 19:28 | PC.NURSE ---
This patient, Lilian Mandel, was received from [icu 5 ] on 07/23/21 at 1845 . Patient/family oriented to unit policies and routines
[2021-07-23] MEDS: LATANOPROST 0.005% OP SOLN 2.5 ML BTL 1 DROP EACH EYE (19:43)
[2021-07-24] VITALS (26 sets, daily range): BP systolic 123–163; BP diastolic 43–79; PULSE 60–78; RESP 16–100; TEMP 36–37.1; O2SAT 16–100
[2021-07-24 00:32] LABS: Glucose Point of Care 112 mg/dl (65-105)
[2021-07-24 06:13] LABS: Glucose Point of Care 105 mg/dl (65-105)
[2021-07-24 08:03] LABS: Basophils Absolute Auto 0.1 K/mm3 (0.0-0.1); Basophils Percent Auto 0.7 % (0.2-1.2); Eosinophils Absolute Auto 0.3 K/mm3 (0-0.3); Eosinophils Percent Auto 3.8 % (0-4.4); Hematocrit 27.8 % (37.0-47.0); Hemoglobin 8.3 g/dL (12.0-15.0); Immature Granulocyte Absolute 0.19 K/mm3 (0.00-0.031); Immature Granulocyte Percent A 2.6 % (0-0.5); Lymphocytes Absolute Auto 1.06 K/mm3 (0.9-3.2); Lymphocytes Percent Auto 14.7 % (18.3-44.2); Mean Corpuscular HGB Conc 29.9 g/dl (32-36); Mean Corpuscular Hemoglobin 30.3 pg (26-34); Mean Corpuscular Volume 101.5 fl (80-100); Mean Platelet Volume 9.8 fl (7.4-10.4); Monocytes Absolute Auto 0.9 K/mm3 (0.1-0.6); Neutrophils Absolute Auto 4.8 K/mm3 (1.3-6.7); Neutrophils Percent Auto 66.2 % (45.5-73.1); Nucleated Red Blood Cells Perc 0.3 % (0.0-0.2); Platelet Count Result 161 k/mm3 (150-375); Red Blood Count 2.74 M/mm3 (4.2-5.4); Red Cell Distribution Width 14.6 % (11.5-14.5); White Blood Count 7.2 K/mm3 (4.5-10.0)
[2021-07-24 08:15] LABS: Albumin Level 2.7 g/dL (3.5-5.1); Anion Gap 4 mmol/L (8-16); Blood Urea Nitrogen 42 mg/dL (7-17); Carbon Dioxide 30 mmol/L (22-30); Chloride 102 mmol/L (98-107); Estimated CRCL calculation 13 ml/min; Estimated Glomerular Filt Rate 15; Glucose 100 mg/dL (65-110); Phosphorus 3.5 mg/dL (2.5-4.5); Potassium 3.9 mmol/L (3.4-5.0); Sodium 136 mmol/L (137-145)
[2021-07-24 08:32] LABS: Anisocytosis 1+ (NORMAL); Hypochromasia 1+ (NORMAL); Platelet Estimate Adequate (Adequate)
[2021-07-24] MEDS: amLODIPine BESYLATE 5 MG TABLET PO (09:16)
[2021-07-24] MEDS: SODIUM BICARBONATE TAB 650 MG TABLET 1300 MG PO ×2 (09:17→20:46)
[2021-07-24] MEDS: calcitrioL 0.25 MCG CAPSULE PO ×2 (09:17→20:46)
[2021-07-24] MEDS: ENOXAPARIN 30 MG/0.3 ML SYRINGE SUB-Q (09:17)
[2021-07-24] MEDS: CHOLECALCIFEROL 1,000 UNITS TABLET 2000 UNITS PO (09:18)
[2021-07-24] MEDS: PANTOPRAZOLE SODIUM IV 40 MG VIAL IV PUSH ×2 (09:18→20:46)
[2021-07-24] MEDS: ATORVASTATIN 20 MG TABLET PO (09:18)
--- NOTE | 2021-07-24 11:16 | PCNFU ---
Nutrition Follow-Up Complete: Inadequate energyl Intake as related to NPO/clear liquids status as evidenced by diet orders. Goal:Meet estimated nutritional needs. Pt to be progressing towards goal when diet is initiated. Pt current nutrition is clear liquids to start today at lunch. Nutrition recommendation: Continue with current plan of care. Last recorded weight is 96.8 kg - up 3kg this week, current wt is stable with admission wt. Bowel Motility: Hypoactive bowel sounds with no recorded BM Labs Reviewed: Hgb:8.3, HCT:27.8 ALB:2.7 NA:136, BUN:42 CRE:3.6 Meds Noted:Protonix, Sodium Bicarbonate Tab, Ativan, Lipitor, Rocaltrol, Apresoline Skin: WNL Additional Notes: Pt extubated yesterday, was on TF of Nepro prior when in ICU, that has now been d/c'd. NPO at this time with plans to advance to clear liquids at lunch. Diet will progress as tolerated. Recommend Ensure Clear on liquid trays, Consider Ensure compact when diet advanced. Will monitor diet order, intake, wt, labs. Follow up in 3 days.
[2021-07-24] MEDS: hydrALAZINE HCL 50 MG TABLET PO (12:52)
[2021-07-24] MEDS: BUMETANIDE 1 MG TABLET 2 MG PO (12:52)
[2021-07-24 13:14] LABS: Glucose Point of Care 93 mg/dl (65-105)
--- NOTE | 2021-07-24 13:44 | PM.IMPN ---
Progress Note: A&P Assessment and Plan (1) End stage renal disease: Code(s): N18.6 - End stage renal disease Status: Chronic Assessment and Plan: Appreciate nephrology consultation, getting dialysis tomorrow potentially (2) Cardiac arrest: Code(s): I46.9 - Cardiac arrest, cause unspecified Status: Acute Assessment and Plan: Status post brief 3 - 4 minute cardiac arrest (asystole after manipulation of the carotid region to access the right IJ for dialysis catheter placement in OR), ROSC within 4 minutes, appears back to baseline (3) Acute respiratory failure: Code(s): J96.00 - Acute respiratory failure, unspecified whether with hypoxia or hypercapnia Status: Acute Assessment and Plan: Extubated yesterday, doing well (4) CHF exacerbation: Code(s): I50.9 - Heart failure, unspecified Status: Acute Assessment and Plan: Appears to be borderline euvolemic (5) Essential (primary) hypertension: Code(s): I10 - Essential (primary) hypertension Status: Chronic Assessment and Plan: Relatively controlled, defer to Nephrology for further management (6) Anemia: Qualifiers: Anemia type: due to chronic kidney disease Chronic kidney disease stage: stage 4 (severe) Qualified Code(s): N18.4 - Chronic kidney disease, stage 4 (severe); D63.1 - Anemia in chronic kidney disease Code(s): D64.9 - Anemia, unspecified Status: Chronic Assessment and Plan: Status post transfusion July 18 during dialysis, getting Epogen per Nephrology (7) Diabetes: Code(s): E11.9 - Type 2 diabetes mellitus without complications Status: Chronic Assessment and Plan: Accu-Cheks plus sliding scale insulin, controlled Subjective Date/time seen: 07/24/21 13:44 Patient resting comfortably without any complaints. No overnight events noted. Review of Systems Review of Systems: All systems reviewed & are unremarkable except as noted in HPI and below Exam Const: General: no acute distress HENMT: Mouth: Yes moist mucous membranes Eyes: General: appearance normal, both eyes and all related structures Resp: Auscultation: clear to auscultation bilaterally and diminished lung sounds GI: GI Palp: Yes Soft to palpation and No Tenderness to palpation present (GI) Psych: Mental Status: mental status grossly normal Objective Data Vital Signs Vital Signs: Vital Signs - 24 hr 07/23/21 13:45 05/12/22 14:00 07/23/21 14:15 Temperature Pulse Rate 83 77 80 Respiratory Rate 16 Blood Pressure 146/72 H 156/70 H 164/70 H Pulse Oximetry 100 07/23/21 14:30 07/23/21 14:45 07/23/21 14:53 Temperature 98.3 F Pulse Rate 73 75 74 Respiratory Rate 14 Blood Pressure 152/68 H 116/67 157/81 H Pulse Oximetry 98 07/23/21 16:00 07/23/21 18:00 07/23/21 19:47 Temperature 97.8 F Pulse Rate 68 76 Respiratory Rate 18 Blood Pressure 147/64 H Pulse Oximetry 100 98 07/23/21 19:52 07/23/21 20:00 07/23/21 22:00 Temperature 98.9 F Pulse Rate 75 74 75 Respiratory Rate 18 Blood Pressure 149/53 H Pulse Oximetry 100 07/24/21 00:00 07/24/21 02:00 07/24/21 04:00 Temperature 98.0 F 98.8 F Pulse Rate 78 68 72 Respiratory Rate 16 100 H Blood Pressure 123/64 138/56 L Pulse Oximetry 100 16 L 07/24/21 06:00 07/24/21 08:00 07/24/21 08:22 Temperature 96.8 F L Pulse Rate 69 67 Respiratory Rate 16 Blood Pressure 149/55 H Pulse Oximetry 94 96 07/24/21 11:16 07/24/21 12:00 07/24/21 12:31 Temperature 98.1 F Pulse Rate 67 69 73 Respiratory Rate 16 Blood Pressure 141/51 H Pulse Oximetry 100 93 Intake/Output Intake/Output: Intake & Output 07/21/21 07/22/21 07/23/21 07/24/21 23:59 23:59 23:59 23:59 Intake Total 1146 916 688 0 Output Total 440 411 4924 0 Balance 571 116 -8397 0 Meds/Results Medications: Active Medications Generic Name Dose Route S
[2021-07-24] MEDS: ACETAMINOPHEN 325 MG TABLET 650 MG PO (14:12)
--- NOTE | 2021-07-24 15:11 | PCSTNOTE ---
Communication evaluation completed. No further ST services indicated for communication, however a swallow evaluation is recommended.
--- NOTE | 2021-07-24 16:15 | P.PNNP_ITS ---
Progress Note: A&P Assessment and Plan (1) End stage renal disease: Code(s): N18.6 - End stage renal disease Status: Chronic Assessment and Plan: * due to progression of disease from HTN, DM, vascular disease, and age * s/p tunneled HD catheter placement (on 07/22/21) * HD yesterday --HD today and possibly another treatment Tuesday depending on dialysis nurse availability (2) Cardiac arrest: Code(s): I46.9 - Cardiac arrest, cause unspecified Status: Acute Assessment and Plan: * brief 3 - 4 minute cardiac arrest (asystole after manipulation of the carotid region to access the right IJ for dialysis catheter placement in OR) * ROSC within 4 minutes * due to vagal stimulation of carotid region versus reaction to propofol(?) * hemodynamically stable (3) Acute respiratory failure: Code(s): J96.00 - Acute respiratory failure, unspecified whether with hypoxia or hypercapnia Status: Acute Assessment and Plan: * resolving * extubated (on 07/23/21) * related to cardiac arrest * follow CXR (4) CHF exacerbation: Code(s): I50.9 - Heart failure, unspecified Status: Acute Assessment and Plan: * as noted by CXR results * continue fluid removal as tolerated by dialysis * still makes some urine so will give oral diuretic today to asssess response (5) Essential (primary) hypertension: Code(s): I10 - Essential (primary) hypertension Status: Chronic Assessment and Plan: * reasonable control currently * continue current BP medications - if bradycardia issues resolved and BP remains elevated, consider adding labetalol * follow trend of hemodynamics (6) Anemia: Qualifiers: Anemia type: due to chronic kidney disease Chronic kidney disease stage: stage 4 (severe) Qualified Code(s): N18.4 - Chronic kidney disease, stage 4 (severe); D63.1 - Anemia in chronic kidney disease Code(s): D64.9 - Anemia, unspecified Status: Chronic Assessment and Plan: * low H/H noted * likely due to ESRD * Epogen with HD * PRBC transfusion with HD (on 07/18/21) * follow H/H (7) Diabetes: Code(s): E11.9 - Type 2 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 Subjective Date/time seen: 07/24/21 16:15 Tolerated dialysis treatment yesterday with ~ 3L fluid removal and tolerating dialysis at the time of my visit (seen on HD at 4:00pm); extubated yesterday morning and transferred out of ICU in the afternoon; respiratory status seems relatively stable; reasonable control with regard to blood pressure; no apparent distress noted; no events overnight or earlier this AM. Exam Narrative: General: Elderly AA female in NAD Heart: normal S1 and S2; no rub Lungs: coarse breath sounds throughout Abdomen: soft, nontender, nondistended, positive bowel sounds Extremities: no cyanosis or clubbing; trace edema Skin: no rash Objective Data Vital Signs Vital Signs: Vital Signs Temp Pulse Resp BP Pulse Ox 07/24/21 16:00 72 07/24/21 12:31 73 93 07/24/21 12:00 69 07/24/21 11:16 36.7 C 67 16 141/51 H 100 07/24/21 08:22 96 07/24/21 08:00 36.0 C L 67 16 149/55 H 94 07/24/21 06:00 69 07/24/21 04:00 37.1 C 72 100 H
--- NOTE | 2021-07-24 16:15 | PM.PNNEP ---
Progress Note: A&P Assessment and Plan (1) End stage renal disease: Code(s): N18.6 - End stage renal disease Status: Chronic Assessment and Plan: due to progression of disease from HTN, DM, vascular disease, and age s/p tunneled HD catheter placement (on 07/22/21) HD yesterday --HD today and possibly another treatment Tuesday depending on dialysis nurse availability (2) Cardiac arrest: Code(s): I46.9 - Cardiac arrest, cause unspecified Status: Acute Assessment and Plan: brief 3 - 4 minute cardiac arrest (asystole after manipulation of the carotid region to access the right IJ for dialysis catheter placement in OR) ROSC within 4 minutes due to vagal stimulation of carotid region versus reaction to propofol(?) hemodynamically stable (3) Acute respiratory failure: Code(s): J96.00 - Acute respiratory failure, unspecified whether with hypoxia or hypercapnia Status: Acute Assessment and Plan: resolving extubated (on 07/23/21) related to cardiac arrest follow CXR (4) CHF exacerbation: Code(s): I50.9 - Heart failure, unspecified Status: Acute Assessment and Plan: as noted by CXR results continue fluid removal as tolerated by dialysis still makes some urine so will give oral diuretic today to asssess response (5) Essential (primary) hypertension: Code(s): I10 - Essential (primary) hypertension Status: Chronic Assessment and Plan: reasonable control currently continue current BP medications - if bradycardia issues resolved and BP remains elevated, consider adding labetalol follow trend of hemodynamics (6) Anemia: Qualifiers: Anemia type: due to chronic kidney disease Chronic kidney disease stage: stage 4 (severe) Qualified Code(s): N18.4 - Chronic kidney disease, stage 4 (severe); D63.1 - Anemia in chronic kidney disease Code(s): D64.9 - Anemia, unspecified Status: Chronic Assessment and Plan: low H/H noted likely due to ESRD Epogen with HD PRBC transfusion with HD (on 07/18/21) follow H/H (7) Diabetes: Code(s): E11.9 - Type 2 diabetes mellitus without complications Status: Chronic Assessment and Plan: follow accuchecks on SSI Will continue to follow. Subjective Date/time seen: 07/24/21 16:15 Tolerated dialysis treatment yesterday with ~ 3L fluid removal and tolerating dialysis at the time of my visit (seen on HD at 4:00pm); extubated yesterday morning and transferred out of ICU in the afternoon; respiratory status seems relatively stable; reasonable control with regard to blood pressure; no apparent distress noted; no events overnight or earlier this AM. Exam Narrative: General: Elderly AA female in NAD Heart: normal S1 and S2; no rub Lungs: coarse breath sounds throughout Abdomen: soft, nontender, nondistended, positive bowel sounds Extremities: no cyanosis or clubbing; trace edema Skin: no rash Objective Data Vital Signs Vital Signs: Vital Signs Temp Pulse Resp BP Pulse Ox 07/24/21 16:00 72 07/24/21 12:31 73 93 07/24/21 12:00 69 07/24/21 11:16 36.7 C 67 16 141/51 H 100 07/24/21 08:22 96 07/24/21 08:00 36.0 C L 67 16 149/55 H 94 07/24/21 06:00 69 07/24/21 04:00 37.1 C 72 100 H 138/56 L 16 L 07/24/21 02:00 68 07/24/21 00:00 36.7 C 78 16 123/64 100 07/23/21 22:00 75 07/23/21 20:00 74 07/23/21 19:52 37.2 C 75 18 149/53 H 100 07/23/21 19:47 98 07/23/21 18:00 76 Intake/Output Intake/Output: Intake & Output 07/21/21 07/22/21 07/23/21 07/24/21 23:59 23:59 23:59 23:59 Intake Total 1146 916 688 0 Output Total 049 282 1143 0 Balance 571 116 -2737 0 Meds/Results Medications: Active Medications Generic Name Dose Route Start Last Admin Trade Name Freq PRN Reason Stop Dose Admin Acetaminophen 650 mg 07/15/21 20:46 05
--- NOTE | 2021-07-24 18:12 | PC.NURSE ---
This patient, Lilian Mandel, was transferred to [facility] on 07/24/21 at 1812. Personal belongings sent with patient. Report given to Raiza SHRESTHA. Appropriate documentation sent with patient.
[2021-07-24] MEDS: SODIUM CHLORIDE 0.9% IV 1,000 ML 999 ML IV CONT (18:21)
[2021-07-24] MEDS: EPOETIN ALFA-EPBX 10,000 UNITS/ML VIAL 10000 UNITS IV PUSH (18:22)
[2021-07-24] MEDS: LATANOPROST 0.005% OP SOLN 2.5 ML BTL 1 DROP EACH EYE (20:47)
[2021-07-24 22:06] LABS: Glucose Point of Care 105 mg/dl (65-105)
[2021-07-25] VITALS (13 sets, daily range): BP systolic 113–173; BP diastolic 52–84; PULSE 67–117; RESP 14–20; TEMP 36.3–37.1; O2SAT 90–100
[2021-07-25] MEDS: hydrALAZINE HCL 50 MG TABLET PO ×3 (00:25→12:06)
[2021-07-25] MEDS: LEVOTHYROXINE SODIUM 50 MCG TABLET PO (05:38)
--- NOTE | 2021-07-25 09:35 | PCSTNOTE ---
Please refer to the Bedside Swallow Evaluation in the EMR. Please note, silent aspiration cannot be ruled out at bedside.
[2021-07-25] MEDS: PANTOPRAZOLE SODIUM IV 40 MG VIAL IV PUSH ×2 (09:59→21:26)
[2021-07-25] MEDS: calcitrioL 0.25 MCG CAPSULE PO ×2 (09:59→18:04)
[2021-07-25] MEDS: ENOXAPARIN 30 MG/0.3 ML SYRINGE SUB-Q (09:59)
[2021-07-25] MEDS: ATORVASTATIN 20 MG TABLET PO (09:59)
[2021-07-25] MEDS: SODIUM BICARBONATE TAB 650 MG TABLET 1300 MG PO ×2 (09:59→18:04)
[2021-07-25] MEDS: CHOLECALCIFEROL 1,000 UNITS TABLET 2000 UNITS PO (09:59)
[2021-07-25] MEDS: amLODIPine BESYLATE 5 MG TABLET PO ×2 (09:59→21:26)
[2021-07-25 10:59] LABS: Glucose Point of Care 137 mg/dl (65-105)
[2021-07-25 11:52] LABS: Glucose Point of Care 137 mg/dl (65-105)
--- NOTE | 2021-07-25 11:56 | P.PNNP_ITS ---
Progress Note: A&P Assessment and Plan (1) End stage renal disease: Code(s): N18.6 - End stage renal disease Status: Chronic Assessment and Plan: * due to progression of disease from HTN, DM, vascular disease, and age * s/p tunneled HD catheter placement (on 07/22/21) * HD tomorrow and continue M/W/F schedule for now (2) Cardiac arrest: Code(s): I46.9 - Cardiac arrest, cause unspecified Status: Acute Assessment and Plan: * brief 3 - 4 minute cardiac arrest (asystole after manipulation of the carotid region to access the right IJ for dialysis catheter placement in OR) * ROSC within 4 minutes * due to vagal stimulation of carotid region versus reaction to propofol(?) * hemodynamically stable (3) Acute respiratory failure: Code(s): J96.00 - Acute respiratory failure, unspecified whether with hypoxia or hypercapnia Status: Acute Assessment and Plan: * resolved * extubated (on 07/23/21) * related to cardiac arrest * follow CXR (4) CHF exacerbation: Code(s): I50.9 - Heart failure, unspecified Status: Acute Assessment and Plan: * as noted by CXR results * continue fluid removal as tolerated by dialysis * still makes some urine so will give oral diuretic (5) Essential (primary) hypertension: Code(s): I10 - Essential (primary) hypertension Status: Chronic Assessment and Plan: * rising again at this time * continue current BP medications - if bradycardia issues resolved and BP remains elevated, consider restarting beta-иван; alternatively, can titrate hydralazine * follow trend of hemodynamics (6) Anemia: Qualifiers: Anemia type: due to chronic kidney disease Chronic kidney disease stage: stage 4 (severe) Qualified Code(s): N18.4 - Chronic kidney disease, stage 4 (severe); D63.1 - Anemia in chronic kidney disease Code(s): D64.9 - Anemia, unspecified Status: Chronic Assessment and Plan: * low H/H noted * likely due to ESRD * Epogen with HD * PRBC transfusion with HD (on 07/18/21) * follow H/H (7) Diabetes: Code(s): E11.9 - Type 2 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 Subjective Date/time seen: 07/25/21 11:56 Tolerated dialysis treatment yesterday afternoon without any issues or problems; breathing continues to improve if not stabilize; no other acute issues or complaints voiced at this time; no events overnight to report. Exam Narrative: General: Elderly AA female in NAD Heart: normal S1 and S2; no rub Lungs: coarse breath sounds throughout Abdomen: soft, nontender, nondistended, positive bowel sounds Extremities: no cyanosis or clubbing; trace edema Skin: no nodules Objective Data Vital Signs Vital Signs: Vital Signs Temp Pulse Resp BP Pulse Ox 07/25/21 10:00 98 07/25/21 09:39 36.4 C 69 15 169/84 H 100 07/25/21 08:00 74 07/25/21 04:00 36.3 C L 72 18 156/52 H 100 07/25/21 00:00 36.3 C L 70 20 143/60 H 97 07/24/21 21:02 94 07/24/21 20:00 36.2 C L 76 18 138/43 L 97 07/24/21 19:05 36.8 C 71 16 146/76 H 07/24/21 18:59 65 139/71 07/24/21 18:30 69 135/72 07/24/21 18:15 60 157/79 H
--- NOTE | 2021-07-25 11:56 | PM.PNNEP ---
Progress Note: A&P Assessment and Plan (1) End stage renal disease: Code(s): N18.6 - End stage renal disease Status: Chronic Assessment and Plan: due to progression of disease from HTN, DM, vascular disease, and age s/p tunneled HD catheter placement (on 07/22/21) HD tomorrow and continue M/W/F schedule for now (2) Cardiac arrest: Code(s): I46.9 - Cardiac arrest, cause unspecified Status: Acute Assessment and Plan: brief 3 - 4 minute cardiac arrest (asystole after manipulation of the carotid region to access the right IJ for dialysis catheter placement in OR) ROSC within 4 minutes due to vagal stimulation of carotid region versus reaction to propofol(?) hemodynamically stable (3) Acute respiratory failure: Code(s): J96.00 - Acute respiratory failure, unspecified whether with hypoxia or hypercapnia Status: Acute Assessment and Plan: resolved extubated (on 07/23/21) related to cardiac arrest follow CXR (4) CHF exacerbation: Code(s): I50.9 - Heart failure, unspecified Status: Acute Assessment and Plan: as noted by CXR results continue fluid removal as tolerated by dialysis still makes some urine so will give oral diuretic (5) Essential (primary) hypertension: Code(s): I10 - Essential (primary) hypertension Status: Chronic Assessment and Plan: rising again at this time continue current BP medications - if bradycardia issues resolved and BP remains elevated, consider restarting beta-иван; alternatively, can titrate hydralazine follow trend of hemodynamics (6) Anemia: Qualifiers: Anemia type: due to chronic kidney disease Chronic kidney disease stage: stage 4 (severe) Qualified Code(s): N18.4 - Chronic kidney disease, stage 4 (severe); D63.1 - Anemia in chronic kidney disease Code(s): D64.9 - Anemia, unspecified Status: Chronic Assessment and Plan: low H/H noted likely due to ESRD Epogen with HD PRBC transfusion with HD (on 07/18/21) follow H/H (7) Diabetes: Code(s): E11.9 - Type 2 diabetes mellitus without complications Status: Chronic Assessment and Plan: follow accuchecks on SSI Will continue to follow. Subjective Date/time seen: 07/25/21 11:56 Tolerated dialysis treatment yesterday afternoon without any issues or problems; breathing continues to improve if not stabilize; no other acute issues or complaints voiced at this time; no events overnight to report. Exam Narrative: General: Elderly AA female in NAD Heart: normal S1 and S2; no rub Lungs: coarse breath sounds throughout Abdomen: soft, nontender, nondistended, positive bowel sounds Extremities: no cyanosis or clubbing; trace edema Skin: no nodules Objective Data Vital Signs Vital Signs: Vital Signs Temp Pulse Resp BP Pulse Ox 07/25/21 10:00 98 07/25/21 09:39 36.4 C 69 15 169/84 H 100 07/25/21 08:00 74 07/25/21 04:00 36.3 C L 72 18 156/52 H 100 07/25/21 00:00 36.3 C L 70 20 143/60 H 97 07/24/21 21:02 94 07/24/21 20:00 36.2 C L 76 18 138/43 L 97 07/24/21 19:05 36.8 C 71 16 146/76 H 07/24/21 18:59 65 139/71 07/24/21 18:30 69 135/72 07/24/21 18:15 60 157/79 H 07/24/21 18:00 65 141/67 H 07/24/21 17:45 68 146/71 H 07/24/21 17:30 70 142/68 H 07/24/21 17:15 72 148/64 H 07/24/21 17:00 74 163/65 H 07/24/21 16:45 69 146/65 H 07/24/21 16:30 73 157/52 H 07/24/21 16:15 69 145/67 H 07/24/21 16:00 72 07/24/21 15:56 73 156/69 H 07/24/21 15:45 36.8 C 75 16 149/65 H Intake/Output Intake/Output: Intake & Output 07/22/21 07/23/21 07/24/21 07/25/21 23:59 23:59 23:59 23:59 Intake Total 916 688 0 820 Output Total 800 3425 1999 Balance 387 -9279 -2000 820 Meds/Results Medications: Active Medications Generic Name Dose Route St
--- NOTE | 2021-07-25 12:58 | PCSTNOTE ---
Please refer to the Modified Barium Swallow Evaluation in the EMR.
--- NOTE | 2021-07-25 14:38 | PM.IMPN ---
Progress Note: A&P Assessment and Plan (1) End stage renal disease: Code(s): N18.6 - End stage renal disease Status: Chronic Assessment and Plan: Next dialysis on Tuesday, hopefully going to rehab then as well (2) Cardiac arrest: Code(s): I46.9 - Cardiac arrest, cause unspecified Status: Acute Assessment and Plan: Status post brief 3 - 4 minute cardiac arrest (asystole after manipulation of the carotid region to access the right IJ for dialysis catheter placement in OR), ROSC within 4 minutes, appears back to baseline (3) Acute respiratory failure: Code(s): J96.00 - Acute respiratory failure, unspecified whether with hypoxia or hypercapnia Status: Acute Assessment and Plan: Significantly improved, on 2 L nasal cannula (4) CHF exacerbation: Code(s): I50.9 - Heart failure, unspecified Status: Acute Assessment and Plan: Appears to be borderline euvolemic (5) Essential (primary) hypertension: Code(s): I10 - Essential (primary) hypertension Status: Chronic Assessment and Plan: Relatively controlled, defer to Nephrology for further management (6) Anemia: Qualifiers: Anemia type: due to chronic kidney disease Chronic kidney disease stage: stage 4 (severe) Qualified Code(s): N18.4 - Chronic kidney disease, stage 4 (severe); D63.1 - Anemia in chronic kidney disease Code(s): D64.9 - Anemia, unspecified Status: Chronic Assessment and Plan: Status post transfusion July 18 during dialysis, getting Epogen per Nephrology (7) Diabetes: Code(s): E11.9 - Type 2 diabetes mellitus without complications Status: Chronic Assessment and Plan: Accu-Cheks plus sliding scale insulin, controlled Subjective Date/time seen: 07/25/21 14:38 Interval history: Patient is feeling much better today than yesterday. No events noted overnight. She feels much more energetic, less short of breath. Still with persistent dry cough. Discussed case with child care development specialist who thinks rehab bed may be available on Tuesday. Assessment and plan discussed extensively with family at bedside as well as patient. Review of Systems Review of Systems: All systems reviewed & are unremarkable except as noted in HPI and below Exam Const: General: no acute distress Other: On 2 L nasal cannula HENMT: Mouth: Yes moist mucous membranes Eyes: General: appearance normal, both eyes and all related structures Neck: Neck: no JVD Resp: Auscultation: clear to auscultation bilaterally and diminished lung sounds Cardio: Rate: regular rate Rhythm: regular rhythm GI: Inspection: non-distended Psych: Mental Status: mental status grossly normal Objective Data Vital Signs Vital Signs: Vital Signs - 24 hr 07/24/21 15:45 07/24/21 15:56 07/24/21 16:00 Temperature 98.3 F Pulse Rate 75 73 72 Respiratory Rate 16 Blood Pressure 149/65 H 156/69 H Pulse Oximetry 07/24/21 16:15 07/24/21 16:30 07/24/21 16:45 Temperature Pulse Rate 69 73 69 Respiratory Rate Blood Pressure 145/67 H 157/52 H 146/65 H Pulse Oximetry 07/24/21 17:00 07/24/21 17:15 07/24/21 17:30 Temperature Pulse Rate 74 72 70 Respiratory Rate Blood Pressure 163/65 H 148/64 H 142/68 H Pulse Oximetry 07/24/21 17:45 07/24/21 18:00 07/24/21 18:15 Temperature Pulse Rate 68 65 60 Respiratory Rate Blood Pressure 146/71 H 141/67 H 157/79 H Pulse Oximetry 07/24/21 18:30 07/24/21 18:59 07/24/21 19:05 Temperature 98.3 F Pulse Rate 69 65 71 Respiratory Rate 16 Blood Pressure 135/72 139/71 146/76 H Pulse Oximetry 07/24/21 20:00 07/24/21 21:02 07/25/21 00:00 Temperature 97.2 F L 97.3 F L Pulse Rate 76 70 Respiratory Rate 18 20 Blood Pressure 138/43 L 143/60 H Pulse Oximetry 97 94 97 07/25/21 04:00 07/25/21 08:00 07/25/21 09:39 Temperature 97.3 F L 97.6 F Pulse Rate 72 74 69 Res
[2021-07-25 16:21] LABS: Glucose Point of Care 120 mg/dl (65-105)
[2021-07-25] MEDS: LATANOPROST 0.005% OP SOLN 2.5 ML BTL 1 DROP EACH EYE (18:04)
[2021-07-25] MEDS: hydrALAZINE HCL 25 MG TABLET 75 MG PO (18:05)
[2021-07-25 21:35] LABS: Glucose Point of Care 92 mg/dl (65-105)
[2021-07-26] VITALS (10 sets, daily range): BP systolic 142–190; BP diastolic 45–95; PULSE 70–91; RESP 16–21; TEMP 36.3–36.7; O2SAT 96–100
[2021-07-26] MEDS: hydrALAZINE HCL 25 MG TABLET 75 MG PO ×5 (00:11→23:53)
[2021-07-26] MEDS: ACETAMINOPHEN 325 MG TABLET 650 MG PO ×4 (03:26→21:08)
[2021-07-26] MEDS: LEVOTHYROXINE SODIUM 50 MCG TABLET PO (05:51)
[2021-07-26 07:35] LABS: Glucose Point of Care 91 mg/dl (65-105)
[2021-07-26] MEDS: CHOLECALCIFEROL 1,000 UNITS TABLET 2000 UNITS PO (08:12)
[2021-07-26] MEDS: ATORVASTATIN 20 MG TABLET PO (08:12)
[2021-07-26] MEDS: amLODIPine BESYLATE 5 MG TABLET PO ×2 (08:12→21:02)
[2021-07-26] MEDS: ENOXAPARIN 30 MG/0.3 ML SYRINGE SUB-Q (08:13)
[2021-07-26] MEDS: PANTOPRAZOLE SODIUM IV 40 MG VIAL IV PUSH (08:13)
[2021-07-26] MEDS: calcitrioL 0.25 MCG CAPSULE PO (08:13)
[2021-07-26] MEDS: SODIUM BICARBONATE TAB 650 MG TABLET 1300 MG PO (08:13)
[2021-07-26 11:30] LABS: Glucose Point of Care 108 mg/dl (65-105)
--- NOTE | 2021-07-26 12:00 | P.PNNP_ITS ---
Progress Note: A&P Assessment and Plan (1) End stage renal disease: Code(s): N18.6 - End stage renal disease Status: Chronic Assessment and Plan: * due to progression of disease from HTN, DM, vascular disease, and age * s/p tunneled HD catheter placement (on 07/22/21) * HD tomorrow and continue M/W/F schedule for now (2) Cardiac arrest: Code(s): I46.9 - Cardiac arrest, cause unspecified Status: Acute Assessment and Plan: * brief 3 - 4 minute cardiac arrest (asystole after manipulation of the carotid region to access the right IJ for dialysis catheter placement in OR) * ROSC within 4 minutes * due to vagal stimulation of carotid region versus reaction to propofol(?) * hemodynamically stable (3) Acute respiratory failure: Code(s): J96.00 - Acute respiratory failure, unspecified whether with hypoxia or hypercapnia Status: Acute Assessment and Plan: * resolved * extubated (on 07/23/21) * related to cardiac arrest * follow CXR (4) CHF exacerbation: Code(s): I50.9 - Heart failure, unspecified Status: Acute Assessment and Plan: * as noted by CXR results * continue fluid removal as tolerated by dialysis * still makes some urine so will give oral diuretic (5) Essential (primary) hypertension: Code(s): I10 - Essential (primary) hypertension Status: Chronic Assessment and Plan: * rising again at this time * continue current BP medications - if bradycardia issues resolved and BP remains elevated, consider restarting beta-иван; alternatively, can titrate hydralazine * follow trend of hemodynamics (6) Anemia: Qualifiers: Anemia type: due to chronic kidney disease Chronic kidney disease stage: stage 4 (severe) Qualified Code(s): N18.4 - Chronic kidney disease, stage 4 (severe); D63.1 - Anemia in chronic kidney disease Code(s): D64.9 - Anemia, unspecified Status: Chronic Assessment and Plan: * low H/H noted * likely due to ESRD * Epogen with HD * PRBC transfusion with HD (on 07/18/21) * follow H/H (7) Diabetes: Code(s): E11.9 - Type 2 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 Subjective Date/time seen: 07/26/21 12:00 Continues to make slow and steady progress; breathing has improved with more aggressive fluid removal with dialysis; blood pressure still somewhat erratic but better in general; anxious for discharge/eager to get out of the hospital and the next level of care. Exam Narrative: General: Elderly AA female in NAD Heart: normal S1 and S2; no rub Lungs: coarse breath sounds throughout Abdomen: soft, nontender, nondistended, positive bowel sounds Extremities: no cyanosis or clubbing; trace edema Skin: no nodules Objective Data Vital Signs Vital Signs: Vital Signs Temp Pulse Resp BP Pulse Ox 07/26/21 10:29 36.7 C 75 16 163/95 H 97 07/26/21 08:10 100 07/26/21 08:00 36.3 C L 73 16 147/58 H 100 07/26/21 05:52 36.7 C 76 16 142/58 H 96 07/26/21 04:00 70 07/26/21 00:00 36.6 C 74 18 164/63 H 96 07/25/21 20:49 37.1 C 74 16 153/52 H 95 07/25/21 20:13 95 07/25/21 20:00 67 07/25/21 18:34 36.6 C 117 H 16 113/65 90
--- NOTE | 2021-07-26 12:00 | PM.PNNEP ---
Progress Note: A&P Assessment and Plan (1) End stage renal disease: Code(s): N18.6 - End stage renal disease Status: Chronic Assessment and Plan: due to progression of disease from HTN, DM, vascular disease, and age s/p tunneled HD catheter placement (on 07/22/21) HD tomorrow and continue M/W/F schedule for now (2) Cardiac arrest: Code(s): I46.9 - Cardiac arrest, cause unspecified Status: Acute Assessment and Plan: brief 3 - 4 minute cardiac arrest (asystole after manipulation of the carotid region to access the right IJ for dialysis catheter placement in OR) ROSC within 4 minutes due to vagal stimulation of carotid region versus reaction to propofol(?) hemodynamically stable (3) Acute respiratory failure: Code(s): J96.00 - Acute respiratory failure, unspecified whether with hypoxia or hypercapnia Status: Acute Assessment and Plan: resolved extubated (on 07/23/21) related to cardiac arrest follow CXR (4) CHF exacerbation: Code(s): I50.9 - Heart failure, unspecified Status: Acute Assessment and Plan: as noted by CXR results continue fluid removal as tolerated by dialysis still makes some urine so will give oral diuretic (5) Essential (primary) hypertension: Code(s): I10 - Essential (primary) hypertension Status: Chronic Assessment and Plan: rising again at this time continue current BP medications - if bradycardia issues resolved and BP remains elevated, consider restarting beta-иван; alternatively, can titrate hydralazine follow trend of hemodynamics (6) Anemia: Qualifiers: Anemia type: due to chronic kidney disease Chronic kidney disease stage: stage 4 (severe) Qualified Code(s): N18.4 - Chronic kidney disease, stage 4 (severe); D63.1 - Anemia in chronic kidney disease Code(s): D64.9 - Anemia, unspecified Status: Chronic Assessment and Plan: low H/H noted likely due to ESRD Epogen with HD PRBC transfusion with HD (on 07/18/21) follow H/H (7) Diabetes: Code(s): E11.9 - Type 2 diabetes mellitus without complications Status: Chronic Assessment and Plan: follow accuchecks on SSI Will continue to follow. Subjective Date/time seen: 07/26/21 12:00 Continues to make slow and steady progress; breathing has improved with more aggressive fluid removal with dialysis; blood pressure still somewhat erratic but better in general; anxious for discharge/eager to get out of the hospital and the next level of care. Exam Narrative: General: Elderly AA female in NAD Heart: normal S1 and S2; no rub Lungs: coarse breath sounds throughout Abdomen: soft, nontender, nondistended, positive bowel sounds Extremities: no cyanosis or clubbing; trace edema Skin: no nodules Objective Data Vital Signs Vital Signs: Vital Signs Temp Pulse Resp BP Pulse Ox 07/26/21 10:29 36.7 C 75 16 163/95 H 97 07/26/21 08:10 100 07/26/21 08:00 36.3 C L 73 16 147/58 H 100 07/26/21 05:52 36.7 C 76 16 142/58 H 96 07/26/21 04:00 70 07/26/21 00:00 36.6 C 74 18 164/63 H 96 07/25/21 20:49 37.1 C 74 16 153/52 H 95 07/25/21 20:13 95 07/25/21 20:00 67 07/25/21 18:34 36.6 C 117 H 16 113/65 90 07/25/21 16:00 70 07/25/21 14:10 36.6 C 73 14 158/56 H 100 07/25/21 13:32 95 Intake/Output Intake/Output: Intake & Output 07/23/21 07/24/21 07/25/21 07/26/21 23:59 23:59 23:59 23:59 Intake Total 688 0 1070 610 Output Total 3425 2000 700 Balance -2737 -1999 1070 -90 Meds/Results Medications: Active Medications Generic Name Dose Route Start Last Admin Trade Name Freq PRN Reason Stop Dose Admin Acetaminophen 650 mg 07/15/21 20:46 07/26/21 10:32 Acetaminophen 325 Mg Tablet PO 650 mg Q4H PRN Administration Mild Pain (1-3) or Fever Amlodipine Besylate 5 mg 07/20/21
[2021-07-26] MEDS: BUMETANIDE PO 1 MG, BUMETANIDE PO 0.5 MG 1.5 MG PO (12:30)
[2021-07-26 16:17] LABS: Glucose Point of Care 93 mg/dl (65-105)
--- NOTE | 2021-07-26 17:03 | PM.IMPN ---
Progress Note: A&P Assessment and Plan (1) End stage renal disease: Code(s): N18.6 - End stage renal disease Status: Chronic Assessment and Plan: Next dialysis on Tuesday, hopefully going to rehab then as well (2) Cardiac arrest: Code(s): I46.9 - Cardiac arrest, cause unspecified Status: Acute Assessment and Plan: Status post brief 3 - 4 minute cardiac arrest (asystole after manipulation of the carotid region to access the right IJ for dialysis catheter placement in OR), ROSC within 4 minutes, appears back to baseline (3) Acute respiratory failure: Code(s): J96.00 - Acute respiratory failure, unspecified whether with hypoxia or hypercapnia Status: Acute Assessment and Plan: Significantly improved, on 2 L nasal cannula 07/26: Patient stable on room air (4) CHF exacerbation: Code(s): I50.9 - Heart failure, unspecified Status: Acute Assessment and Plan: Appears to be borderline euvolemic (5) Essential (primary) hypertension: Code(s): I10 - Essential (primary) hypertension Status: Chronic Assessment and Plan: Relatively controlled, defer to Nephrology for further management (6) Anemia: Qualifiers: Anemia type: due to chronic kidney disease Chronic kidney disease stage: stage 4 (severe) Qualified Code(s): N18.4 - Chronic kidney disease, stage 4 (severe); D63.1 - Anemia in chronic kidney disease Code(s): D64.9 - Anemia, unspecified Status: Chronic Assessment and Plan: Status post transfusion July 18 during dialysis, getting Epogen per Nephrology (7) Diabetes: Code(s): E11.9 - Type 2 diabetes mellitus without complications Status: Chronic Assessment and Plan: Accu-Cheks plus sliding scale insulin, controlled Subjective Date/time seen: 07/26/21 17:03 Patient resting comfortably feeling much better than yesterday. She is eager to leave the hospital. She denies any events overnight. No chest pain, shortness a breath. No nausea vomiting or diarrhea. No fevers or chills. Interval history: Will attempt to get patient to rehab tomorrow. Review of Systems Review of Systems: All systems reviewed & are unremarkable except as noted in HPI and below Exam Const: General: no acute distress HENMT: Mouth: Yes moist mucous membranes Eyes: General: appearance normal, both eyes and all related structures Neck: Neck: no JVD Resp: Auscultation: clear to auscultation bilaterally Cardio: Rate: regular rate Rhythm: regular rhythm GI: Inspection: non-distended GI Palp: Yes Soft to palpation and No Tenderness to palpation present (GI) Psych: Mental Status: mental status grossly normal Objective Data Vital Signs Vital Signs: Vital Signs - 24 hr 07/25/21 18:34 07/25/21 20:00 07/25/21 20:13 Temperature 97.9 F Pulse Rate 117 H 67 Respiratory Rate 16 Blood Pressure 113/65 Pulse Oximetry 90 95 07/25/21 20:49 07/26/21 00:00 07/26/21 04:00 Temperature 98.8 F 97.9 F Pulse Rate 74 74 70 Respiratory Rate 16 18 Blood Pressure 153/52 H 164/63 H Pulse Oximetry 95 96 07/26/21 05:52 07/26/21 08:00 07/26/21 08:10 Temperature 98.1 F 97.3 F L Pulse Rate 76 73 Respiratory Rate 16 16 Blood Pressure 142/58 H 147/58 H Pulse Oximetry 96 100 100 07/26/21 10:29 07/26/21 12:00 07/26/21 12:27 Temperature 98.0 F Pulse Rate 75 73 Respiratory Rate 16 Blood Pressure 163/95 H 190/69 H Pulse Oximetry 97 07/26/21 16:00 Temperature Pulse Rate 76 Respiratory Rate 16 Blood Pressure 181/62 H Pulse Oximetry 97 Intake/Output Intake/Output: Intake & Output 07/23/21 07/24/21 07/25/21 07/26/21 23:59 23:59 23:59 23:59 Intake Total 688 0 1070 1090 Output Total 3425 2000 700 Balance -2737 1070 390 Meds/Results Medications: Active Medications Generic Name Dose Route Start Last Admin Trade Name Freq PRN Reason Stop Dose
[2021-07-26] MEDS: LATANOPROST 0.005% OP SOLN 2.5 ML BTL 1 DROP EACH EYE (17:26)
[2021-07-26 21:49] LABS: Glucose Point of Care 119 mg/dl (65-105)
[2021-07-27] VITALS (24 sets, daily range): BP systolic 127–174; BP diastolic 41–79; PULSE 70–89; RESP 18–20; TEMP 36.1–37.2; O2SAT 95–100
[2021-07-27 06:13] LABS: Anion Gap 4 mmol/L (8-16); Blood Urea Nitrogen 31 mg/dL (7-17); Calcium 8.3 mg/dL (8.4-10.2); Carbon Dioxide 31 mmol/L (22-30); Chloride 98 mmol/L (98-107); Estimated CRCL calculation 14 ml/min; Estimated Glomerular Filt Rate 16; Glucose 109 mg/dL (65-110); Phosphorus 2.9 mg/dL (2.5-4.5); Potassium 3.9 mmol/L (3.4-5.0); Sodium 133 mmol/L (137-145)
[2021-07-27] MEDS: LEVOTHYROXINE SODIUM 50 MCG TABLET PO (06:19)
[2021-07-27] MEDS: hydrALAZINE HCL 25 MG TABLET 75 MG PO ×4 (06:19→23:59)
[2021-07-27 06:57] LABS: Hematocrit 27.5 % (37.0-47.0); Hemoglobin 8.4 g/dL (12.0-15.0); Mean Corpuscular HGB Conc 30.5 g/dl (32-36); Mean Corpuscular Hemoglobin 30.3 pg (26-34); Mean Corpuscular Volume 99.3 fl (80-100); Mean Platelet Volume 9.5 fl (7.4-10.4); Platelet Count Result 216 k/mm3 (150-375); Red Blood Count 2.77 M/mm3 (4.2-5.4); Red Cell Distribution Width 14.1 % (11.5-14.5); White Blood Count 6.8 K/mm3 (4.5-10.0)
[2021-07-27 07:40] LABS: Glucose Point of Care 101 mg/dl (65-105)
[2021-07-27] MEDS: PANTOPRAZOLE SODIUM IV 40 MG VIAL IV PUSH (08:47)
[2021-07-27] MEDS: CHOLECALCIFEROL 1,000 UNITS TABLET 2000 UNITS PO (08:48)
[2021-07-27] MEDS: ATORVASTATIN 20 MG TABLET PO (08:48)
[2021-07-27] MEDS: ENOXAPARIN 30 MG/0.3 ML SYRINGE SUB-Q (08:48)
[2021-07-27] MEDS: BUMETANIDE PO 1 MG, BUMETANIDE PO 0.5 MG 1.5 MG PO (08:49)
[2021-07-27] MEDS: amLODIPine BESYLATE 5 MG TABLET PO ×2 (08:49→20:31)
--- NOTE | 2021-07-27 09:29 | PC.NURSE ---
Report called to Blaire SHRESTHA in Dialysis.
[2021-07-27 09:32] LABS: Glucose Point of Care 101 mg/dl (65-105)
[2021-07-27] MEDS: ACETAMINOPHEN 325 MG TABLET 650 MG PO ×2 (09:46→15:37)
--- NOTE | 2021-07-27 09:46 | PC.NURSE ---
To Dialysis via bed.
--- NOTE | 2021-07-27 10:19 | PCPTNOTE ---
The patient treatment was not able to be completed on 07/27/2021 due to patient out of room for dialysis. Will plan to continue treatment per plan of care.
--- NOTE | 2021-07-27 11:02 | PM.PNNEP ---
Progress Note: A&P Assessment and Plan (1) End stage renal disease: Code(s): N18.6 - End stage renal disease Status: Chronic Assessment and Plan: due to progression of disease from HTN, DM, vascular disease, and age hemodialysis is ongoing. She will get another treatment today. (2) Cardiac arrest: Code(s): I46.9 - Cardiac arrest, cause unspecified Status: Acute Assessment and Plan: brief 3 - 4 minute cardiac arrest (asystole after manipulation of the carotid region to access the right IJ for dialysis catheter placement in OR) ROSC within 4 minutes due to vagal stimulation of carotid region versus reaction to propofol(?) hemodynamically stable (3) Acute respiratory failure: Code(s): J96.00 - Acute respiratory failure, unspecified whether with hypoxia or hypercapnia Status: Acute Assessment and Plan: resolved (4) CHF exacerbation: Code(s): I50.9 - Heart failure, unspecified Status: Acute Assessment and Plan: as noted by CXR results Remove fluid on dialysis. Also on a diuretic. (5) Essential (primary) hypertension: Code(s): I10 - Essential (primary) hypertension Status: Chronic Assessment and Plan: rising again at this time This should improve with fluid removal. (6) Anemia: Qualifiers: Anemia type: due to chronic kidney disease Chronic kidney disease stage: stage 4 (severe) Qualified Code(s): N18.4 - Chronic kidney disease, stage 4 (severe); D63.1 - Anemia in chronic kidney disease Code(s): D64.9 - Anemia, unspecified Status: Chronic Assessment and Plan: low H/H noted likely due to ESRD Epogen with HD PRBC transfusion with HD (on 07/18/21) Hemoglobin 8.4 (7) Diabetes: Code(s): E11.9 - Type 2 diabetes mellitus without complications Status: Chronic Assessment and Plan: on Accu-Cheks and sliding-scale insulin per hospitalist. Additional Plan 1. Katie he has chronic kidney disease. This is from diabetes and hypertension. Her baseline creatinine ranges between 4.5 and 5.5. Now her creatinine is up to 6.1. Her potassium is 6.1. The patient did see education but did not really think about whether she wanted to do incenter or home dialysis. Because her numbers are getting worse I think with to go ahead and initiate dialysis. The patient is fine with this. I discussed the risks, benefits, alternatives, and process of dialysis and the patient agrees to proceed. Will consult surgery to place a dialysis catheter 2. The patient has hypertension. Her blood pressure was very high when she came in. Now the blood pressure is under good control 3. The patient has diabetes. She is on Accu-Cheks and sliding-scale insulin per hospitalist. 4. The patient had high potassium. This is worse. Will give Lokelma. 5. Bicarbonate level is only 18. Bicarb is improved. 6. The patient has pyuria. Urine culture is pending. 7. The patient has GERD. She is on pantoprazole. Subjective Date/time seen: 07/27/21 11:02 Interval history: Katie he is feeling better. Eating better. No shortness of breath or swelling Exam Narrative: General: Elderly AA female in NAD Heart: normal S1 and S2; no rub or gallop Lungs: coarse breath sounds throughout Abdomen: soft, nontender, nondistended, positive bowel sounds Extremities: no cyanosis or clubbing; trace edema Skin: no nodules or rash Objective Data Vital Signs Vital Signs: Vital Signs - 24 hr 07/26/21 12:00 07/26/21 12:27 07/26/21 16:00 Temperature Pulse Rate 73 76 Respiratory Rate 16 Blood Pressure 190/69 H 181/62 H Pulse Oximetry 97 07/26/21 20:00 07/27/21 00:00 07/27/21 04:00 Temperature 36.7 C 36.4 C L Pulse Rate 70 73 80 Respiratory Rate 21 H 20 Blood Pressure 159/45 H 174/56 H Pulse Oximetry 100 99 07/27/21 05:00 07/27/21 08:03
--- NOTE | 2021-07-27 11:07 | PCNFU ---
Nutrition Follow-Up Complete: Inadequate Oral Intake as related to mechanical ventilation as evidenced by NPO. Goal:Meet estimated nutritional needs Pt is currently meeting goal via po intake. Pt current nutrition is Regular diet. Nutrition recommendation: Continue with current plan of care. Last recorded weight is 90.3 kg -noted a 5kg loss x 1 week. Was NPO, transitioned to tube feeds. Now on a regular diet. Bowel Motility: +BM a few days ago per pt Labs Reviewed: Alb:3.0, NA:133, BUN:31, CRE:3.4 Meds Noted: novolog, lovenox, lipitor Skin:WNL Additional Notes: Pt consuming a regular diet, intake charted at 100% all meals. Nursing reports good appetite and intake. pt currently in dialysis at this time. Agree with diet orders. Monitor intake, wt, labs. Follow up in 7 days.
--- NOTE | 2021-07-27 14:28 | PM.IMPN ---
Progress Note: A&P Assessment and Plan (1) End stage renal disease: Code(s): N18.6 - End stage renal disease Status: Chronic Assessment and Plan: Next dialysis on Tuesday, hopefully going to rehab then as well 07/27: Rehab bed still pending (2) Cardiac arrest: Code(s): I46.9 - Cardiac arrest, cause unspecified Status: Acute Assessment and Plan: Status post brief 3 - 4 minute cardiac arrest (asystole after manipulation of the carotid region to access the right IJ for dialysis catheter placement in OR), ROSC within 4 minutes, appears back to baseline (3) Acute respiratory failure: Code(s): J96.00 - Acute respiratory failure, unspecified whether with hypoxia or hypercapnia Status: Acute Assessment and Plan: Significantly improved, on 2 L nasal cannula 07/26: Patient stable on room air (4) CHF exacerbation: Code(s): I50.9 - Heart failure, unspecified Status: Acute Assessment and Plan: Appears to be borderline euvolemic (5) Essential (primary) hypertension: Code(s): I10 - Essential (primary) hypertension Status: Chronic Assessment and Plan: Relatively controlled, defer to Nephrology for further management (6) Anemia: Qualifiers: Anemia type: due to chronic kidney disease Chronic kidney disease stage: stage 4 (severe) Qualified Code(s): N18.4 - Chronic kidney disease, stage 4 (severe); D63.1 - Anemia in chronic kidney disease Code(s): D64.9 - Anemia, unspecified Status: Chronic Assessment and Plan: Status post transfusion July 18 during dialysis, getting Epogen per Nephrology (7) Diabetes: Code(s): E11.9 - Type 2 diabetes mellitus without complications Status: Chronic Assessment and Plan: Accu-Cheks plus sliding scale insulin, controlled (8) Hyponatremia: Code(s): E87.1 - Hypo-osmolality and hyponatremia Status: Acute Assessment and Plan: 07/27: Mild hyponatremia developed today, sodium 133, will defer to Nephrology for further management of fluid status Subjective Date/time seen: 07/27/21 14:29 Patient just got back from dialysis is resting comfortably. She feels little tired, but otherwise no complaints. No events noted overnight. No chest pain or shortness of breath. No nausea vomiting or diarrhea. She is eager to go to rehab. She states she feels a little weak, but is getting a little stronger each day. Review of Systems Review of Systems: All systems reviewed & are unremarkable except as noted in HPI and below Exam Const: General: no acute distress HENMT: Mouth: Yes moist mucous membranes Eyes: General: appearance normal, both eyes and all related structures Neck: Neck: no JVD Resp: Auscultation: clear to auscultation bilaterally and diminished lung sounds Cardio: Rate: regular rate Rhythm: regular rhythm GI: Inspection: non-distended Psych: Mental Status: mental status grossly normal Objective Data Vital Signs Vital Signs: Vital Signs - 24 hr 07/26/21 16:00 07/26/21 20:00 07/27/21 00:00 Temperature 98.0 F 97.5 F L Pulse Rate 76 70 73 Respiratory Rate 16 21 H 20 Blood Pressure 181/62 H 159/45 H 174/56 H Pulse Oximetry 97 100 99 07/27/21 04:00 07/27/21 05:00 07/27/21 08:03 Temperature 97.8 F Pulse Rate 80 75 82 Respiratory Rate 20 Blood Pressure 146/41 H Pulse Oximetry 98 07/27/21 08:49 07/27/21 10:15 07/27/21 10:30 Temperature 97.9 F Pulse Rate 77 73 Respiratory Rate 20 18 Blood Pressure 170/66 H 161/69 H Pulse Oximetry 98 07/27/21 10:45 07/27/21 11:00 07/27/21 11:30 Temperature Pulse Rate 70 79 79 Respiratory Rate Blood Pressure 173/70 H 137/79 158/69 H Pulse Oximetry 07/27/21 11:45 07/27/21 12:00 07/27/21 12:15 Temperature Pulse Rate 80 74 72 Respiratory Rate Blood Pressure 127/78 141/70 H 165/72 H Pulse Oximetry 07/27/21 12:30 07/27
[2021-07-27 14:34] LABS: Anion Gap -1 mmol/L (8-16); Blood Urea Nitrogen 13 mg/dL (7-17); Calcium 8.2 mg/dL (8.4-10.2); Carbon Dioxide 38 mmol/L (22-30); Chloride 99 mmol/L (98-107); Estimated CRCL calculation 22 ml/min; Estimated Glomerular Filt Rate 27; Glucose 120 mg/dL (65-110); Potassium 3.5 mmol/L (3.4-5.0); Sodium 136 mmol/L (137-145)
--- NOTE | 2021-07-27 14:40 | PCPTNOTE ---
Attempted to see patient for PT at this time, however patient was eating lunch.
[2021-07-27 14:57] LABS: Glucose Point of Care 115 mg/dl (65-105)
[2021-07-27 16:17] LABS: Glucose Point of Care 175 mg/dl (65-105)
[2021-07-27 16:32] LABS: Glucose Point of Care 191 mg/dl (65-105)
[2021-07-27] MEDS: LATANOPROST 0.005% OP SOLN 2.5 ML BTL 1 DROP EACH EYE (18:19)
[2021-07-27 20:38] LABS: Glucose Point of Care 168 mg/dl (65-105)
[2021-07-28] VITALS (12 sets, daily range): BP systolic 148–171; BP diastolic 51–66; PULSE 70–92; RESP 14–20; TEMP 36.4–37.3; O2SAT 97–100
--- NOTE | 2021-07-28 | ECHO_ITS ---
Patient Info Name: Lilian Mandel Age: 81 years : 1940 Gender: Female Ht: 66 in Wt: 195 lbs BSA: 2.06 m2 HR: 88 bpm BP: 164 / 51 mmHg Heart Rhythm: Sinus Rhythm Technical Quality: Fair Exam Date: 07/28/2021 11:06 AM Exam Location: [facility] Patient Status: Inpatient Admit Date: 07/17/2021 Staff Ordering Physician: Leonard Mendoza M.A., MD Railroad Hand: Viki Galo RDCS Attending Provider: Crystal Baum DO Referring Physician: Parth JOHNSON; Exam Type: CA echo doppler color flow Study Info Indications - HX OF CARDIAC ARREST Complete two-dimensional, color flow and Doppler transthoracic echocardiogram is performed. Summary 1. Complete two-dimensional, color flow and Doppler transthoracic echocardiogram is performed. 2. Left ventricular chamber dimension is normal. 3. Left ventricular systolic function is normal, estimated at 55-60%. 4. There is moderately increased left ventricular wall thickness. 5. The left ventricular diastolic function is grade I diastolic dysfunction. 6. E/e' 12 is mildly elevated. 7. There is moderate aortic valve sclerosis. 8. There is mild aortic valve stenosis with a peak velocity of 176 cm/s, mean gradient of 6 mmHg, and aortic valve area of 1.7 cm2. 9. There is mild mitral valve regurgitation. 10. No pulmonary hypertension, estimated pulmonary arterial systolic pressure is 24 mmHg. 11. Pleural effusion noted. 12. There is trivial pericardial effusion. Left Ventricle E/e' 12 is mildly elevated. Left ventricular chamber dimension is normal. Left ventricular systolic function is normal, estimated at 55-60%. There is moderately increased left ventricular wall thickness. The left ventricular diastolic function is grade I diastolic dysfunction. Right Ventricle Right ventricular systolic function is normal and with normal TAPSE 1.8 cm. Right ventricular chamber dimension is normal. Left Atria Left atrial chamber dimension is normal. Right Atria Right atrial chamber dimension is normal. Aortic Valve The aortic valve is trileaflet. There is moderate aortic valve sclerosis. There is mild aortic valve stenosis with a peak velocity of 176 cm/s, mean gradient of 6 mmHg, and aortic valve area of 1.7 cm2. There is no aortic valve regurgitation. Pulmonic Valve There is no pulmonic regurgitation. Mitral Valve There is no mitral valve stenosis. There is mild mitral valve regurgitation. Tricuspid Valve There is no tricuspid valve regurgitation. No pulmonary hypertension, estimated pulmonary arterial systolic pressure is 24 mmHg. Pericardium/Pleural Pleural effusion noted. There is trivial pericardial effusion. Inferior Vena Cava Normal inferior vena cava with >50% collapse upon inspiration consistent with normal right atrial pressure, 5 mmHg. Aorta The aortic root size at the sinus of Valsalva is normal. Left Ventricular Outflow Tract Name Value Normal LVOT 2D LVOT Diameter 2.0 cm LVOT Doppler LVOT Peak Gradient 4 mmHg LVOT Mean Gradient 2 mmHg LVOT VTI
[2021-07-28] MEDS: hydrALAZINE HCL 25 MG TABLET 75 MG PO ×4 (06:33→23:58)
[2021-07-28] MEDS: LEVOTHYROXINE SODIUM 50 MCG TABLET PO (06:33)
[2021-07-28 07:46] LABS: Glucose Point of Care 93 mg/dl (65-105)
--- NOTE | 2021-07-28 08:18 | PM.PNNEP ---
Progress Note: A&P Assessment and Plan (1) End stage renal disease: Code(s): N18.6 - End stage renal disease Status: Chronic Assessment and Plan: due to progression of disease from HTN, DM, vascular disease, and age She had dialysis yesterday. This went well. She will get another treatment tomorrow. (2) Cardiac arrest: Code(s): I46.9 - Cardiac arrest, cause unspecified Status: Acute Assessment and Plan: brief 3 - 4 minute cardiac arrest (asystole after manipulation of the carotid region to access the right IJ for dialysis catheter placement in OR) ROSC within 4 minutes due to vagal stimulation of carotid region versus reaction to propofol(?) hemodynamically stable (3) Acute respiratory failure: Code(s): J96.00 - Acute respiratory failure, unspecified whether with hypoxia or hypercapnia Status: Acute Assessment and Plan: resolved (4) CHF exacerbation: Code(s): I50.9 - Heart failure, unspecified Status: Acute Assessment and Plan: Improved with fluid removal. (5) Essential (primary) hypertension: Code(s): I10 - Essential (primary) hypertension Status: Chronic Assessment and Plan: Blood pressure still a bit high even with fluid removal. She is on carvedilol amlodipine and hydralazine. She has had angioedema so we cannot use Adams inhibitors or ARB is. Will increase amlodipine to 10. (6) Anemia: Qualifiers: Anemia type: due to chronic kidney disease Chronic kidney disease stage: stage 4 (severe) Qualified Code(s): N18.4 - Chronic kidney disease, stage 4 (severe); D63.1 - Anemia in chronic kidney disease Code(s): D64.9 - Anemia, unspecified Status: Chronic Assessment and Plan: Check C PC in the a.m. likely due to ESRD Epogen with HD PRBC transfusion with HD (on 07/18/21) check iron level (7) Diabetes: Code(s): E11.9 - Type 2 diabetes mellitus without complications Status: Chronic Assessment and Plan: on Accu-Cheks and sliding-scale insulin per hospitalist. Additional Plan 1. Katie he has chronic kidney disease. This is from diabetes and hypertension. Her baseline creatinine ranges between 4.5 and 5.5. Now her creatinine is up to 6.1. Her potassium is 6.1. The patient did see education but did not really think about whether she wanted to do incenter or home dialysis. Because her numbers are getting worse I think with to go ahead and initiate dialysis. The patient is fine with this. I discussed the risks, benefits, alternatives, and process of dialysis and the patient agrees to proceed. Will consult surgery to place a dialysis catheter 2. The patient has hypertension. Her blood pressure was very high when she came in. Now the blood pressure is under good control 3. The patient has diabetes. She is on Accu-Cheks and sliding-scale insulin per hospitalist. 4. The patient had high potassium. This is worse. Will give Lokelma. 5. Bicarbonate level is only 18. Bicarb is improved. 6. The patient has pyuria. Urine culture is pending. 7. The patient has GERD. She is on pantoprazole. Subjective Date/time seen: 07/28/21 08:18 Interval history: Katie he is feeling better. Eating better. Lying flat in bed comfortably. Exam Narrative: General: Elderly AA female in NAD Heart: normal S1 and S2; no rub Lungs: fairly clear bilaterally Abdomen: soft, nontender, nondistended, positive bowel sounds Extremities: no cyanosis or clubbing; Minimal edema Skin: No rash. Objective Data Vital Signs Vital Signs: Vital Signs - 24 hr 07/27/21 08:49 07/27/21 10:15 07/27/21 10:30 Temperature 36.6 C Pulse Rate 77 73 Respiratory Rate 20 18 Blood Pressure 170/66 H 161/69 H Pulse Oximetry 98 07/27/21 10:45 07/27/21 11:00 07/27/21 11:30 Temperature Pulse Rate 70 79 79 Resp
[2021-07-28] MEDS: ENOXAPARIN 30 MG/0.3 ML SYRINGE SUB-Q (09:22)
[2021-07-28] MEDS: ATORVASTATIN 20 MG TABLET PO (09:23)
[2021-07-28] MEDS: PANTOPRAZOLE SODIUM IV 40 MG VIAL IV PUSH (09:23)
[2021-07-28] MEDS: amLODIPine BESYLATE 5 MG TABLET PO ×2 (09:24→20:37)
[2021-07-28] MEDS: CHOLECALCIFEROL 1,000 UNITS TABLET 2000 UNITS PO (09:24)
[2021-07-28] MEDS: BUMETANIDE PO 1 MG, BUMETANIDE PO 0.5 MG 1.5 MG PO (09:24)
[2021-07-28 09:47] LABS: Iron 42 ug/dL (37-170)
[2021-07-28 09:58] LABS: Percent Iron Saturation 22 % (20-50)
--- NOTE | 2021-07-28 10:07 | PM.IMPN ---
Progress Note: A&P Assessment and Plan (1) End stage renal disease: Code(s): N18.6 - End stage renal disease Status: Chronic Assessment and Plan: Continue dialysis as scheduled plan for dialysis tomorrow (2) Cardiac arrest: Code(s): I46.9 - Cardiac arrest, cause unspecified Status: Acute Assessment and Plan: Status post brief 3 - 4 minute cardiac arrest (asystole after manipulation of the carotid region to access the right IJ for dialysis catheter placement in OR), ROSC within 4 minutes, appears back to baseline (3) Acute respiratory failure: Code(s): J96.00 - Acute respiratory failure, unspecified whether with hypoxia or hypercapnia Status: Acute Assessment and Plan: Significantly improved, on 2 L nasal cannula Most likely related to pulmonary edema (4) CHF exacerbation: Code(s): I50.9 - Heart failure, unspecified Status: Acute Assessment and Plan: Most likely acute on top of chronic diastolic CHF exacerbation secondary to fluid overload secondary to ESRD status post dialysis (5) Essential (primary) hypertension: Code(s): I10 - Essential (primary) hypertension Status: Chronic Assessment and Plan: Relatively controlled, defer to Nephrology for further management (6) Anemia: Qualifiers: Anemia type: due to chronic kidney disease Chronic kidney disease stage: stage 4 (severe) Qualified Code(s): N18.4 - Chronic kidney disease, stage 4 (severe); D63.1 - Anemia in chronic kidney disease Code(s): D64.9 - Anemia, unspecified Status: Chronic Assessment and Plan: Status post transfusion July 18 during dialysis, getting Epogen per Nephrology (7) Diabetes: Code(s): E11.9 - Type 2 diabetes mellitus without complications Status: Chronic Assessment and Plan: Accu-Cheks plus sliding scale insulin, controlled (8) Hyponatremia: Code(s): E87.1 - Hypo-osmolality and hyponatremia Status: Acute Assessment and Plan: Hyponatremia improved with dialysis Anticipate discharge probably in a.m. after dialysis Subjective Date/time seen: 07/28/21 10:07 Interval history: 81-year-old female was admitted to the hospital with weakness and nausea and vomiting was found to have acute on chronic renal failure nephrology was consulted was treated with IV fluid while tunneled cultured her was code to be placed for dialysis patient had cardiac arrest CPR for 4 minutes admitted to the ICU intubated patient condition improved patient was extubated successfully continue to be on dialysis nephrology following patient was transferred to medical floor where her condition continued to improve plan for discharge to rehab Patient feels better today moves all extremities Patient denies fever headache chest pain shortness of breath I am seeing the patient for renal failure Exam Narrative: Alert Chest no wheeze crackles Abdomen nontender nondistended CVS S1 + S2 Lower extremity edema Objective Data Vital Signs Vital Signs: Vital Signs - 24 hr 07/27/21 10:15 07/27/21 10:30 07/27/21 10:45 Temperature 97.9 F Pulse Rate 77 73 70 Respiratory Rate 18 Blood Pressure 170/66 H 161/69 H 173/70 H Pulse Oximetry 07/27/21 11:00 07/27/21 11:30 07/27/21 11:45 Temperature Pulse Rate 79 79 80 Respiratory Rate Blood Pressure 137/79 158/69 H 127/78 Pulse Oximetry 07/27/21 12:00 07/27/21 12:15 07/27/21 12:30 Temperature Pulse Rate 74 72 73 Respiratory Rate Blood Pressure 141/70 H 165/72 H 147/67 H Pulse Oximetry 07/27/21 13:00 07/27/21 13:15 07/27/21 13:31 Temperature Pulse Rate 77 74 74 Respiratory Rate Blood Pressure 147/71 H 138/69 146/72 H Pulse Oximetry 07/27/21 13:51 07/27/21 14:25 07/27/21 14:58 Temperature 97.3 F L Pulse Rate 75 89 Respiratory Rate 20 Blood Pressure 129/67 170/51 H Pulse Oximetry 97 95 07/27
[2021-07-28 11:49] LABS: Glucose Point of Care 145 mg/dl (65-105)
[2021-07-28 16:30] LABS: Glucose Point of Care 143 mg/dl (65-105)
[2021-07-28] MEDS: LATANOPROST 0.005% OP SOLN 2.5 ML BTL 1 DROP EACH EYE (17:27)
[2021-07-28] MEDS: ACETAMINOPHEN 325 MG TABLET 650 MG PO (17:33)
[2021-07-28 20:21] LABS: Glucose Point of Care 135 mg/dl (65-105)
[2021-07-29] VITALS (30 sets, daily range): BP systolic 149–185; BP diastolic 42–75; PULSE 63–107; RESP 16–18; TEMP 36.2–37.1; O2SAT 98–99
[2021-07-29 05:50] LABS: Basophils Percent Auto 0.5 % (0.2-1.2); Eosinophils Absolute Auto 0.3 K/mm3 (0-0.3); Eosinophils Percent Auto 4.3 % (0-4.4); Hematocrit 26.1 % (37.0-47.0); Hemoglobin 7.9 g/dL (12.0-15.0); Immature Granulocyte Absolute 0.08 K/mm3 (0.00-0.031); Immature Granulocyte Percent A 1.2 % (0-0.5); Lymphocytes Absolute Auto 1.47 K/mm3 (0.9-3.2); Lymphocytes Percent Auto 22.6 % (18.3-44.2); Mean Corpuscular HGB Conc 30.3 g/dl (32-36); Mean Corpuscular Hemoglobin 30.6 pg (26-34); Mean Corpuscular Volume 101.2 fl (80-100); Mean Platelet Volume 9.5 fl (7.4-10.4); Monocytes Absolute Auto 0.6 K/mm3 (0.1-0.6); Monocytes Percent Auto 9.7 % (2.6-8.5); Neutrophils Percent Auto 61.7 % (45.5-73.1); Platelet Count Result 260 k/mm3 (150-375); Red Blood Count 2.58 M/mm3 (4.2-5.4); Red Cell Distribution Width 14.9 % (11.5-14.5); White Blood Count 6.5 K/mm3 (4.5-10.0)
[2021-07-29 06:09] LABS: Albumin Level 2.8 g/dL (3.5-5.1); Anion Gap 5 mmol/L (8-16); Blood Urea Nitrogen 25 mg/dL (7-17); Calcium 8.4 mg/dL (8.4-10.2); Carbon Dioxide 31 mmol/L (22-30); Chloride 103 mmol/L (98-107); Estimated CRCL calculation 13 ml/min; Estimated Glomerular Filt Rate 15; Glucose 104 mg/dL (65-110); Phosphorus 3.2 mg/dL (2.5-4.5); Potassium 3.5 mmol/L (3.4-5.0); Sodium 139 mmol/L (137-145)
[2021-07-29] MEDS: hydrALAZINE HCL 25 MG TABLET 75 MG PO ×3 (06:31→17:21)
[2021-07-29] MEDS: LEVOTHYROXINE SODIUM 50 MCG TABLET PO (06:32)
[2021-07-29 07:49] LABS: Glucose Point of Care 104 mg/dl (65-105)
[2021-07-29] MEDS: BUMETANIDE PO 1 MG, BUMETANIDE PO 0.5 MG 1.5 MG PO (08:24)
[2021-07-29] MEDS: ENOXAPARIN 30 MG/0.3 ML SYRINGE SUB-Q (08:24)
[2021-07-29] MEDS: amLODIPine BESYLATE 5 MG TABLET PO (08:24)
[2021-07-29] MEDS: ATORVASTATIN 20 MG TABLET PO (08:24)
[2021-07-29] MEDS: PANTOPRAZOLE SODIUM IV 40 MG VIAL IV PUSH (08:24)
[2021-07-29] MEDS: CHOLECALCIFEROL 1,000 UNITS TABLET 2000 UNITS PO (08:24)
--- NOTE | 2021-07-29 10:06 | P.PNNP_ITS ---
Progress Note: A&P Assessment and Plan (1) End stage renal disease: Code(s): N18.6 - End stage renal disease Status: Chronic Assessment and Plan: * due to progression of disease from HTN, DM, vascular disease, and age * She had dialysis yesterday. This went well. * She will get another treatment today (2) Cardiac arrest: Code(s): I46.9 - Cardiac arrest, cause unspecified Status: Acute Assessment and Plan: * brief 3 - 4 minute cardiac arrest (asystole after manipulation of the carotid region to access the right IJ for dialysis catheter placement in OR) * ROSC within 4 minutes * due to vagal stimulation of carotid region versus reaction to propofol(?) * hemodynamically stable * she has tolerated dialysis well lately. (3) Acute respiratory failure: Code(s): J96.00 - Acute respiratory failure, unspecified whether with hypoxia or hypercapnia Status: Acute Assessment and Plan: * resolved (4) CHF exacerbation: Code(s): I50.9 - Heart failure, unspecified Status: Acute Assessment and Plan: * Improved with fluid removal. (5) Essential (primary) hypertension: Code(s): I10 - Essential (primary) hypertension Status: Chronic Assessment and Plan: * Blood pressure still a bit high even with fluid removal. * She is on carvedilol amlodipine and hydralazine. * She has had angioedema so we cannot use Adams inhibitors or ARBs. * Now on amlodipine 10. Will at this soak in for a couple of days and see how the blood pressure is. (6) Anemia: Qualifiers: Anemia type: due to chronic kidney disease Chronic kidney disease stage: stage 4 (severe) Qualified Code(s): N18.4 - Chronic kidney disease, stage 4 (severe); D63.1 - Anemia in chronic kidney disease Code(s): D64.9 - Anemia, unspecified Status: Chronic Assessment and Plan: * Hemoglobin 7.9. * likely due to ESRD * PRBC transfusion with HD (on 07/18/21) * T sat 22. * Continue EPO. (7) Diabetes: Code(s): E11.9 - Type 2 diabetes mellitus without complications Status: Chronic Assessment and Plan: * on Accu-Cheks and sliding-scale insulin per hospitalist. Subjective Date/time seen: 07/29/21 10:06 Interval history: Katie he is feeling better. Eating better. Lying flat in bed comfortably. She transfers to a chair with help. Exam Narrative: General: Elderly AA female in NAD Heart: normal S1 and S2; no rub Lungs: fairly clear to auscultation Abdomen: soft, nontender, nondistended, positive bowel sounds Extremities: no cyanosis or clubbing; Minimal edema Skin: No rash or subcu not. Objective Data Vital Signs Vital Signs: Vital Signs - 24 hr 07/28/21 10:12 07/28/21 12:00 07/28/21 14:47 Temperature 36.4 C 37.3 C Pulse Rate 70 92 78 Respiratory Rate 16 16 Blood Pressure 171/52 H 156/52 H Pulse Oximetry 99 98 07/28/21 16:04 07/28/21 18:30 07/28/21 20:00 Temperature 36.9 C Pulse Rate 81 81 76 Respiratory Rate 18 Blood Pressure 166/52 H Pulse Oximetry 100 07/28/21 22:00 07/29/21 00:00 07/29/21 01:37 Temperature 36.8 C 37.1 C Pulse Rate 75 75 63 Respiratory Rate 14 16 Blood Pressure 148/51 H 149/50
--- NOTE | 2021-07-29 10:06 | PM.PNNEP ---
Progress Note: A&P Assessment and Plan (1) End stage renal disease: Code(s): N18.6 - End stage renal disease Status: Chronic Assessment and Plan: due to progression of disease from HTN, DM, vascular disease, and age She had dialysis yesterday. This went well. She will get another treatment today (2) Cardiac arrest: Code(s): I46.9 - Cardiac arrest, cause unspecified Status: Acute Assessment and Plan: brief 3 - 4 minute cardiac arrest (asystole after manipulation of the carotid region to access the right IJ for dialysis catheter placement in OR) ROSC within 4 minutes due to vagal stimulation of carotid region versus reaction to propofol(?) hemodynamically stable she has tolerated dialysis well lately. (3) Acute respiratory failure: Code(s): J96.00 - Acute respiratory failure, unspecified whether with hypoxia or hypercapnia Status: Acute Assessment and Plan: resolved (4) CHF exacerbation: Code(s): I50.9 - Heart failure, unspecified Status: Acute Assessment and Plan: Improved with fluid removal. (5) Essential (primary) hypertension: Code(s): I10 - Essential (primary) hypertension Status: Chronic Assessment and Plan: Blood pressure still a bit high even with fluid removal. She is on carvedilol amlodipine and hydralazine. She has had angioedema so we cannot use Adams inhibitors or ARBs. Now on amlodipine 10. Will at this soak in for a couple of days and see how the blood pressure is. (6) Anemia: Qualifiers: Anemia type: due to chronic kidney disease Chronic kidney disease stage: stage 4 (severe) Qualified Code(s): N18.4 - Chronic kidney disease, stage 4 (severe); D63.1 - Anemia in chronic kidney disease Code(s): D64.9 - Anemia, unspecified Status: Chronic Assessment and Plan: Hemoglobin 7.9. likely due to ESRD PRBC transfusion with HD (on 07/18/21) T sat 22. Continue EPO. (7) Diabetes: Code(s): E11.9 - Type 2 diabetes mellitus without complications Status: Chronic Assessment and Plan: on Accu-Cheks and sliding-scale insulin per hospitalist. Subjective Date/time seen: 07/29/21 10:06 Interval history: Katie he is feeling better. Eating better. Lying flat in bed comfortably. She transfers to a chair with help. Exam Narrative: General: Elderly AA female in NAD Heart: normal S1 and S2; no rub Lungs: fairly clear to auscultation Abdomen: soft, nontender, nondistended, positive bowel sounds Extremities: no cyanosis or clubbing; Minimal edema Skin: No rash or subcu not. Objective Data Vital Signs Vital Signs: Vital Signs - 24 hr 07/28/21 10:12 07/28/21 12:00 07/28/21 14:47 Temperature 36.4 C 37.3 C Pulse Rate 70 92 78 Respiratory Rate 16 16 Blood Pressure 171/52 H 156/52 H Pulse Oximetry 99 98 07/28/21 16:04 07/28/21 18:30 07/28/21 20:00 Temperature 36.9 C Pulse Rate 81 81 76 Respiratory Rate 18 Blood Pressure 166/52 H Pulse Oximetry 100 07/28/21 22:00 07/29/21 00:00 07/29/21 01:37 Temperature 36.8 C 37.1 C Pulse Rate 75 75 63 Respiratory Rate 14 16 Blood Pressure 148/51 H 149/50 H Pulse Oximetry 97 99 07/29/21 04:00 07/29/21 06:00 07/29/21 08:23 Temperature 36.8 C Pulse Rate 71 107 H 74 Respiratory Rate 16 18 Blood Pressure 171/53 H 155/60 H Pulse Oximetry 98 Intake/Output Intake/Output: Intake & Output 07/26/21 07/27/21 07/28/21 07/29/21 23:59 23:59 23:59 23:59 Intake Total 1880 1060 1292 540 Output Total 7919 432 3889 600 Balance 680 160 -58 -60 Meds/Results Medications: Active Medications Generic Name Dose Route Start Last Admin Trade Name Freq PRN Reason Stop Dose Admin Acetaminophen 650 mg 07/15/21 20:46 07/28/21 17:33 Acetaminophen 325 Mg Tablet PO 650 mg Q4H PRN Administration Mild Pain (1-3) or F
--- NOTE | 2021-07-29 10:08 | PM.DS ---
DS: Admitting Diagnosis Discharge Date 07/30/2019 Admitting Diagnosis Worsening renal failure DS: Discharge Diagnosis Discharge Diagnosis (1) End stage renal disease: Code(s): N18.6 - End stage renal disease Status: Chronic Assessment and Plan: Progression of chronic renal failure Continue dialysis as scheduled by Nephrology (2) Cardiac arrest: Code(s): I46.9 - Cardiac arrest, cause unspecified Status: Acute Assessment and Plan: Status post brief 3 - 4 minute cardiac arrest (asystole after manipulation of the carotid region to access the right IJ for dialysis catheter placement in OR), ROSC within 4 minutes, appears back to baseline 2D echo shows diastolic dysfunction (3) Acute respiratory failure: Code(s): J96.00 - Acute respiratory failure, unspecified whether with hypoxia or hypercapnia Status: Acute Assessment and Plan: Significantly improved, on 2 L nasal cannula Most likely related to pulmonary edema Resolved (4) CHF exacerbation: Code(s): I50.9 - Heart failure, unspecified Status: Acute Assessment and Plan: Most likely acute on top of chronic diastolic CHF exacerbation secondary to fluid overload secondary to ESRD status post dialysis (5) Essential (primary) hypertension: Code(s): I10 - Essential (primary) hypertension Status: Chronic Assessment and Plan: Relatively controlled, defer to Nephrology for further management Medication was adjusted per nephrology as above (6) Anemia: Qualifiers: Anemia type: due to chronic kidney disease Chronic kidney disease stage: stage 4 (severe) Qualified Code(s): N18.4 - Chronic kidney disease, stage 4 (severe); D63.1 - Anemia in chronic kidney disease Code(s): D64.9 - Anemia, unspecified Status: Chronic Assessment and Plan: Status post transfusion July 18 during dialysis, getting Epogen per Nephrology (7) Diabetes: Code(s): E11.9 - Type 2 diabetes mellitus without complications Status: Chronic Assessment and Plan: Resume Mardayan (8) Hyponatremia: Code(s): E87.1 - Hypo-osmolality and hyponatremia Status: Acute Assessment and Plan: Hyponatremia improved with dialysis DS: Summary Hospital Course Hospital Course: 81-year-old female was admitted to the hospital with weakness and nausea and vomiting was found to have acute on chronic renal failure nephrology was consulted was treated with IV fluid while tunneled cath to be placed for dialysis patient had cardiac arrest CPR for 4 minutes admitted to the ICU intubated patient condition improved patient was extubated successfully continue to be on dialysis nephrology following patient was transferred to medical floor where her condition continued to improve plan for discharge to reha Time Spent with Patient Time attestation: Total time spent providing and/or coordinating discharge services: Exam Narrative: Alert Chest no wheeze crackles Abdomen nontender nondistended CVS S1 + S2 Lower extremity edema DS: Data Data Completed and Pending Labs on day of discharge: Labs from last 24 hours 07/29/21 07/29/21 07/29/21 07:47 05:30 05:30 WBC 6.5 RBC 2.58 L Hgb 7.9 L Hct 26.1 L MCV 101.2 H MCH 30.6 MCHC 30.3 L RDW 14.9 H Plt Count 260 MPV 9.5 Immature Gran % (Auto) 1.2 H Neut % (Auto) 61.7 Lymph % (Auto) 22.6 Towner % (Auto) 9.7 H Eos % (Auto) 4.3 Baso % (Auto) 0.5 Lymph # (Auto) 1.47 Towner # (Auto) 0.6 Eos # (Auto) 0.3 Baso # (Auto) 0.0 Abs Immat Gran (auto) 0.08 H Absolute Neuts (auto) 4.0 Absolute Nucleated RBC 0.0 Nucleated RBC % 0.0 Sodium 139 Potassium 3.5 Chloride 103 Carbon Dioxide 31 H Anion Gap 5 L BUN 25 H D Creatinine 3.50 H Estim Creat Clear Calc 13 Estimated GFR 15 L Glucose 104 POC Capillary Glucose 104 Calcium 8
[2021-07-29 11:20] LABS: Glucose Point of Care 148 mg/dl (65-105)
--- NOTE | 2021-07-29 12:18 | PCOTNOTE ---
The OT treatment was not completed this date. Will continue plan of care as appropriate.
[2021-07-29 16:31] LABS: Glucose Point of Care 113 mg/dl (65-105)
[2021-07-29] MEDS: LATANOPROST 0.005% OP SOLN 2.5 ML BTL 1 DROP EACH EYE (17:21)
[2021-07-29] MEDS: HEPARIN SODIUM 1,000 UNITS/ML VIAL 5000 UNITS (23:57)
[2021-07-30] VITALS (13 sets, daily range): BP systolic 127–185; BP diastolic 47–78; PULSE 65–80; RESP 16–18; TEMP 36.4–37.2; O2SAT 95–100
[2021-07-30 00:40] LABS: Glucose Point of Care 147 mg/dl (65-105)
[2021-07-30] MEDS: hydrALAZINE HCL 25 MG TABLET 75 MG PO ×4 (02:02→16:59)
[2021-07-30 06:30] LABS: Albumin Level 3.2 g/dL (3.5-5.1); Anion Gap 6 mmol/L (8-16); Blood Urea Nitrogen 15 mg/dL (7-17); Calcium 8.5 mg/dL (8.4-10.2); Carbon Dioxide 37 mmol/L (22-30); Chloride 96 mmol/L (98-107); Estimated CRCL calculation 21 ml/min; Estimated Glomerular Filt Rate 26; Glucose 110 mg/dL (65-110); Phosphorus 2.2 mg/dL (2.5-4.5); Potassium 3.5 mmol/L (3.4-5.0); Sodium 139 mmol/L (137-145)
[2021-07-30] MEDS: LEVOTHYROXINE SODIUM 50 MCG TABLET PO (06:33)
[2021-07-30 07:46] LABS: Glucose Point of Care 122 mg/dl (65-105)
[2021-07-30] MEDS: amLODIPine BESYLATE 5 MG TABLET PO (08:32)
[2021-07-30] MEDS: BUMETANIDE PO 1 MG, BUMETANIDE PO 0.5 MG 1.5 MG PO (08:32)
[2021-07-30] MEDS: ATORVASTATIN 20 MG TABLET PO (08:32)
[2021-07-30] MEDS: CHOLECALCIFEROL 1,000 UNITS TABLET 2000 UNITS PO (08:33)
[2021-07-30] MEDS: ENOXAPARIN 30 MG/0.3 ML SYRINGE SUB-Q (08:33)
[2021-07-30] MEDS: PANTOPRAZOLE SODIUM IV 40 MG VIAL IV PUSH (08:33)
--- NOTE | 2021-07-30 08:57 | P.PNNP_ITS ---
Progress Note: A&P Assessment and Plan (1) End stage renal disease: Code(s): N18.6 - End stage renal disease Status: Chronic Assessment and Plan: * due to progression of disease from HTN, DM, vascular disease, and age * She had dialysis yesterday. This went well. * She will get another treatment tomorrow if still here. (2) Cardiac arrest: Code(s): I46.9 - Cardiac arrest, cause unspecified Status: Acute Assessment and Plan: * brief 3 - 4 minute cardiac arrest (asystole after manipulation of the carotid region to access the right IJ for dialysis catheter placement in OR) * ROSC within 4 minutes * due to vagal stimulation of carotid region versus reaction to propofol(?) * hemodynamically stable * she has tolerated dialysis well lately. (3) Acute respiratory failure: Code(s): J96.00 - Acute respiratory failure, unspecified whether with hypoxia or hypercapnia Status: Acute Assessment and Plan: * resolved (4) CHF exacerbation: Code(s): I50.9 - Heart failure, unspecified Status: Acute Assessment and Plan: * Improved with fluid removal. (5) Essential (primary) hypertension: Code(s): I10 - Essential (primary) hypertension Status: Chronic Assessment and Plan: * Blood pressure still a bit high even with fluid removal. * She is on carvedilol amlodipine and hydralazine. * She has had angioedema so we cannot use Adams inhibitors or ARBs. * Change amlodipine to nifedipine. (6) Anemia: Qualifiers: Anemia type: due to chronic kidney disease Chronic kidney disease stage: stage 4 (severe) Qualified Code(s): N18.4 - Chronic kidney disease, stage 4 (severe); D63.1 - Anemia in chronic kidney disease Code(s): D64.9 - Anemia, unspecified Status: Chronic Assessment and Plan: * Hemoglobin 7.9. * likely due to ESRD * PRBC transfusion with HD (on 07/18/21) * T sat 22. * Continue EPO. (7) Diabetes: Code(s): E11.9 - Type 2 diabetes mellitus without complications Status: Chronic Assessment and Plan: * on Accu-Cheks and sliding-scale insulin per hospitalist. Subjective Date/time seen: 07/30/21 08:57 Interval history: Patient had dialysis last night. It went well. She is eager to transfer to rehab. Exam Narrative: General: Elderly AA female in NAD Heart: normal S1 and S2; no rub or gallop Lungs: fairly clear to auscultation Abdomen: soft, nontender, nondistended, positive bowel sounds Extremities: no cyanosis or clubbing; Minimal edema Skin: No rash Objective Data Vital Signs Vital Signs: Vital Signs - 24 hr 07/29/21 11:36 07/29/21 12:00 07/29/21 15:22 Temperature 36.2 C L Pulse Rate 86 76 Respiratory Rate 16 Blood Pressure 153/54 H 150/51 H Pulse Oximetry 98 07/29/21 16:00 07/29/21 17:18 07/29/21 18:00 Temperature 36.3 C L Pulse Rate 78 72 Respiratory Rate 16 Blood Pressure 169/62 H 150/42 H Pulse Oximetry 98 07/29/21 20:00 07/29/21 20:27 07/29/21 20:32 Temperature 36.6 C Pulse Rate 69 78 74 Respiratory Rate 16 16 Blood Pressure 183/75 H 176/66 H Pulse Oximetry 98 07/29/21 20:45 07/29/21 21:00 07/29/21
--- NOTE | 2021-07-30 08:57 | PM.PNNEP ---
Progress Note: A&P Assessment and Plan (1) End stage renal disease: Code(s): N18.6 - End stage renal disease Status: Chronic Assessment and Plan: due to progression of disease from HTN, DM, vascular disease, and age She had dialysis yesterday. This went well. She will get another treatment tomorrow if still here. (2) Cardiac arrest: Code(s): I46.9 - Cardiac arrest, cause unspecified Status: Acute Assessment and Plan: brief 3 - 4 minute cardiac arrest (asystole after manipulation of the carotid region to access the right IJ for dialysis catheter placement in OR) ROSC within 4 minutes due to vagal stimulation of carotid region versus reaction to propofol(?) hemodynamically stable she has tolerated dialysis well lately. (3) Acute respiratory failure: Code(s): J96.00 - Acute respiratory failure, unspecified whether with hypoxia or hypercapnia Status: Acute Assessment and Plan: resolved (4) CHF exacerbation: Code(s): I50.9 - Heart failure, unspecified Status: Acute Assessment and Plan: Improved with fluid removal. (5) Essential (primary) hypertension: Code(s): I10 - Essential (primary) hypertension Status: Chronic Assessment and Plan: Blood pressure still a bit high even with fluid removal. She is on carvedilol amlodipine and hydralazine. She has had angioedema so we cannot use Adams inhibitors or ARBs. Change amlodipine to nifedipine. (6) Anemia: Qualifiers: Anemia type: due to chronic kidney disease Chronic kidney disease stage: stage 4 (severe) Qualified Code(s): N18.4 - Chronic kidney disease, stage 4 (severe); D63.1 - Anemia in chronic kidney disease Code(s): D64.9 - Anemia, unspecified Status: Chronic Assessment and Plan: Hemoglobin 7.9. likely due to ESRD PRBC transfusion with HD (on 07/18/21) T sat 22. Continue EPO. (7) Diabetes: Code(s): E11.9 - Type 2 diabetes mellitus without complications Status: Chronic Assessment and Plan: on Accu-Cheks and sliding-scale insulin per hospitalist. Subjective Date/time seen: 07/30/21 08:57 Interval history: Patient had dialysis last night. It went well. She is eager to transfer to rehab. Exam Narrative: General: Elderly AA female in NAD Heart: normal S1 and S2; no rub or gallop Lungs: fairly clear to auscultation Abdomen: soft, nontender, nondistended, positive bowel sounds Extremities: no cyanosis or clubbing; Minimal edema Skin: No rash Objective Data Vital Signs Vital Signs: Vital Signs - 24 hr 07/29/21 11:36 07/29/21 12:00 07/29/21 15:22 Temperature 36.2 C L Pulse Rate 86 76 Respiratory Rate 16 Blood Pressure 153/54 H 150/51 H Pulse Oximetry 98 07/29/21 16:00 07/29/21 17:18 07/29/21 18:00 Temperature 36.3 C L Pulse Rate 78 72 Respiratory Rate 16 Blood Pressure 169/62 H 150/42 H Pulse Oximetry 98 07/29/21 20:00 07/29/21 20:27 07/29/21 20:32 Temperature 36.6 C Pulse Rate 69 78 74 Respiratory Rate 16 16 Blood Pressure 183/75 H 176/66 H Pulse Oximetry 98 07/29/21 20:45 07/29/21 21:00 07/29/21 21:15 Temperature Pulse Rate 73 71 73 Respiratory Rate Blood Pressure 170/73 H 155/71 H 169/72 H Pulse Oximetry 07/29/21 21:30 07/29/21 21:45 07/29/21 22:00 Temperature Pulse Rate 72 73 74 Respiratory Rate Blood Pressure 173/70 H 173/75 H 174/74 H Pulse Oximetry 07/29/21 22:15 07/29/21 22:30 07/29/21 22:45 Temperature Pulse Rate 73 73 74 Respiratory Rate Blood Pressure 177/71 H 180/69 H 161/75 H Pulse Oximetry 07/29/21 23:00 07/29/21 23:15 07/29/21 23:30 Temperature Pulse Rate 72 72 71 Respiratory Rate Blood Pressure 173/71 H 185/72 H 176/74 H Pulse Oximetry 07/29/21 23:45 07/30/21 00:00 07/30/21 00:05 Temperature Pulse Rate 76 76 71
[2021-07-30] MEDS: ACETAMINOPHEN 325 MG TABLET 650 MG PO (09:38)
[2021-07-30] MEDS: NIFEdipine 30 MG TAB.ER.24 60 MG PO (09:38)
--- NOTE | 2021-07-30 10:48 | PM.IMPN ---
Progress Note: A&P Assessment and Plan (1) End stage renal disease: Code(s): N18.6 - End stage renal disease Status: Chronic Assessment and Plan: Progression of chronic renal failure Continue dialysis as scheduled by Nephrology. its set up as op basis tomorrow (2) Cardiac arrest: Code(s): I46.9 - Cardiac arrest, cause unspecified Status: Acute Assessment and Plan: Status post brief 3 - 4 minute cardiac arrest (asystole after manipulation of the carotid region to access the right IJ for dialysis catheter placement in OR), ROSC within 4 minutes, appears back to baseline 2D echo shows diastolic dysfunction (3) Acute respiratory failure: Code(s): J96.00 - Acute respiratory failure, unspecified whether with hypoxia or hypercapnia Status: Acute Assessment and Plan: Significantly improved, on 2 L nasal cannula Most likely related to pulmonary edema Resolved (4) CHF exacerbation: Code(s): I50.9 - Heart failure, unspecified Status: Acute Assessment and Plan: Most likely acute on top of chronic diastolic CHF exacerbation secondary to fluid overload secondary to ESRD status post dialysis (5) Essential (primary) hypertension: Code(s): I10 - Essential (primary) hypertension Status: Chronic Assessment and Plan: Relatively controlled, defer to Nephrology for further management Medication was adjusted per nephrology as above (6) Anemia: Qualifiers: Anemia type: due to chronic kidney disease Chronic kidney disease stage: stage 4 (severe) Qualified Code(s): N18.4 - Chronic kidney disease, stage 4 (severe); D63.1 - Anemia in chronic kidney disease Code(s): D64.9 - Anemia, unspecified Status: Chronic Assessment and Plan: Status post transfusion July 18 during dialysis, getting Epogen per Nephrology (7) Diabetes: Code(s): E11.9 - Type 2 diabetes mellitus without complications Status: Chronic Assessment and Plan: Resume Januvia (8) Hyponatremia: Code(s): E87.1 - Hypo-osmolality and hyponatremia Status: Acute Assessment and Plan: Hyponatremia improved with dialysis Additional Plan ok to discahrge to Nursing facility today for further rehabilitation Subjective Date/time seen: 07/30/21 10:48 discharge did not happen last night as she was late with her dialysis. she reports she is feeling well. no overnight events. no nausea, vomiting, sob, chest pain Review of Systems Review of Systems: All systems reviewed & are unremarkable except as noted in HPI and below Exam Narrative: GENERAL: The patient is well developed, not in acute distress HEENT: Nonicteric sclerae, PERRLA, EOMI. Oropharynx clear. Moist mucous membranes. Conjunctivae appear well perfused. CHEST: Chest wall is nontender. HEART: Regular rate and rhythm without murmur, rubs, or gallops LUNGS: Clear to auscultation bilaterally. no respiratory distress ABDOMEN: Soft, positive bowel sounds, non-tender, no organomegaly. SKIN: No rash, no excessive bruising, petechiae, or purpura. NEUROLOGIC: Cranial nerves II-XII intact, alert and oriented x 3, no gross motor deficits EXTREMITIES: no edema, cyanosis or clubbing Objective Data Vital Signs Vital Signs: Vital Signs - 24 hr 07/29/21 11:36 07/29/21 12:00 07/29/21 15:22 Temperature 97.2 F L Pulse Rate 86 76 Respiratory Rate 16 Blood Pressure 153/54 H 150/51 H Pulse Oximetry 98 07/29/21 16:00 07/29/21 17:18 07/29/21 18:00 Temperature 97.3 F L Pulse Rate 78 72 Respiratory Rate 16 Blood Pressure 169/62 H 150/42 H Pulse Oximetry 98 07/29/21 20:00 07/29/21 20:27 07/29/21 20:32 Temperature 97.8 F Pulse Rate 69 78 74 Respiratory Rate 16 16 Blood Pressure 183/75 H 176/66 H Pulse Oximetry 98 07/29/21 20:45 07/29/21 21:00 07/29/21 21:15 Temperature Pulse Rate 73 71 73 Respiratory Rate Blood Pressure 170/73
[2021-07-30 11:23] LABS: Glucose Point of Care 199 mg/dl (65-105)
[2021-07-30 16:39] LABS: Glucose Point of Care 107 mg/dl (65-105)
[2021-07-30] MEDS: LATANOPROST 0.005% OP SOLN 2.5 ML BTL 1 DROP EACH EYE (16:59)
== END 2021-07-30 18:25 | DRG 673 ==
LOC: ANHED 20:45 → ANHIMU 23:04 → ANHICU 07-18 09:11 → ANHIMU 07-23 18:41 → ANH2MED 07-24 18:24
PROVIDERS: Hospitalist; Internal Medicine; Internal Medicine Nephrology; Student in an Organized Health Care Education/Training Program; Surgery; Admitting Provider Internal Medicine; Emergency Provider Family Medicine; PCP Internal Medicine; Visit Provider Internal Medicine
PROC: 06HY33Z Insertion of Infusion Device into Lower Vein, Percutaneous Approach (ICD-10-PCS; CPT 36908; principal; 2021-07-18 07:30)
PROC: 0JH63XZ Insertion of Tunneled Vascular Access Device into Chest Subcutaneous Tissue and Fascia, Percutaneous Approach (ICD-10-PCS; CPT 36908; principal; 2021-07-22 15:00)
DX: N17.9 Acute kidney failure, unspecified (principal); J96.00 Acute respiratory failure, unspecified whether with hypoxia or hypercapnia; I46.9 Cardiac arrest, cause unspecified; I50.33 Acute on chronic diastolic (congestive) heart failure; I13.2 Hypertensive heart and chronic kidney disease with heart failure and with stage 5 chronic kidney disease, or end stage renal disease; G93.40 Encephalopathy, unspecified; E87.1 Hypo-osmolality and hyponatremia; R11.2 Nausea with vomiting, unspecified; N18.6 End stage renal disease; Z20.822 Contact with and (suspected) exposure to COVID-19; K21.9 Gastro-esophageal reflux disease without esophagitis; G47.33 Obstructive sleep apnea (adult) (pediatric); Z87.891 Personal history of nicotine dependence; I25.10 Atherosclerotic heart disease of native coronary artery without angina pectoris; E03.9 Hypothyroidism, unspecified; E11.22 Type 2 diabetes mellitus with diabetic chronic kidney disease; I65.29 Occlusion and stenosis of unspecified carotid artery; Z82.49 Family history of ischemic heart disease and other diseases of the circulatory system; D63.1 Anemia in chronic kidney disease; R82.81 Pyuria; E78.2 Mixed hyperlipidemia; R00.1 Bradycardia, unspecified; Z53.09 Procedure and treatment not carried out because of other contraindication; Z79.899 Other long term (current) drug therapy; Z79.82 Long term (current) use of aspirin
CPT/HCPCS: 36415; 36430; 36600; 51701; 71045; 71250; 74018; 74176; 76937; 77001; 80048; 80053; 80069; 81001; 82140; 82375; 82728; 82805; 82948; 83050; 83540; 83550; 83605; 83690; 83735; 84100; 85025; 85027; 85610; 85730; 86704; 86706; 86803; 86850; 86900; 86901; 86920; 87086; 87340; 92523; 92610; 92611; 93005; 93306; 94002; 94003; 96361; 96365; 96374; 96375; 96376; 97110; 97162; 97166; 97530; 97535; 99285; A9270; C1750; C1752; C9113; C9803; G0257; G0378; J0171; J0360; J0461; J0690; J0696; J1644; J1650; J1815; J2250; J2270; J2370; J2405; J2704; J3010; J7030; J7040; J7050; P9016; P9045; P9047; Q5105; U0003; U0005

== ENCOUNTER 2021-11-15 20:09 | Observation (INO) | payer MEDICARE, SELFPAY ==
--- NOTE | ~2021-11-15 | XR_ITS ---
EXAMINATION: XR hip LT 2V w AP pelvis DATE: 11/16/2021 12:45 INDICATION: Pelvis injury. TECHNIQUE: An anteroposterior view of the pelvis and 2 views of left hip were obtained. COMPARISON: Pelvis and hip radiograph 04/28/2020 FINDINGS: There is lumbar levoscoliosis and severe spondylosis. No fracture. There is a total right h ip arthroplasty in near-anatomic alignment. There is chronic advanced left hip osteoarthritis includi ng flattening of the superior aspect of the femoral head and enlargement of the acetabulum. IMPRESSION: 1. Advanced left hip osteoarthritis. 2. Total right hip arthroplasty in near-anatomic alignment. Reviewed, dictated and finalized at location A.
--- NOTE | ~2021-11-15 | NM_ITS ---
EXAMINATION: NM huyen stress w perfusion DATE: 11/18/2021 13:59 INDICATION: Abnormal echocardiogram TECHNIQUE: Rest images were obtained following intravenous administration of 10 mCi Tc99m tetrofosmin (Myoview). The patient was infused intravenously with Lexiscan (Regadenoson). Then, 32.1 mCi Tc99m t etrofosmin (Myoview) was administered intravenously, and stress images were obtained. Data was recons tructed into short axis and horizontal and vertical long axis SPECT images. Gated SPECT images were a lso obtained. COMPARISON: None. FINDINGS: There is no definite reversible or fixed perfusion abnormality to suggest ischemia or infar ction. There is normal left ventricular chamber size and wall motion. Borderline left ventricular ej ection fraction measuring 46%. IMPRESSION: 1. Normal myocardial perfusion at rest and during stress. 2. Borderline left ventricular ejection fraction measuring 46%. Reviewed, dictated and finalized at location A.
--- NOTE | ~2021-11-15 | CT_ITS ---
EXAMINATION: CT brain wo con DATE: 11/16/2021 12:51 INDICATION: Syncope. TECHNIQUE: Computed tomography (CT) of the head was performed without intravenous contrast. The mA wa s adjusted according to patient size. Iterative reconstruction technique was employed. The dose-lengt h product was 529.67 mGy-cm. COMPARISON: Head CT 05/08/2020 FINDINGS: There is no intracranial hemorrhage, acute infarction, or abnormal intracranial mass lesion . The ventricles are normal in size. There is mild mucosal thickening in the ethmoid sinuses. There i s a chronic right otomastoid effusion. IMPRESSION: 1. Normal brain. 2. Chronic right otomastoid effusion. Reviewed, dictated and finalized at location A.
--- NOTE | ~2021-11-15 | XR_ITS ---
EXAMINATION: XR chest 2V Exam Date/Time: 11/15/2021 21:40 CDT HISTORY: syncope Comparison: 07/23/2021. RESULT: Lines, tubes, and devices: Dual-lumen right IJ catheter terminates at the cavoatrial junction. Lungs and pleura: Clear. Cardiomediastinal silhouette: Stable. Other: No acute osseous or upper abdominal finding. IMPRESSION: No acute cardiopulmonary process. Reviewed, dictated and finalized at location K.
--- NOTE | ~2021-11-15 | XR_ITS ---
EXAMINATION: XR knee LT 3V DATE: 11/16/2021 12:45 INDICATION: Left knee pain. Fall 2 days ago. TECHNIQUE: 3 views of left knee were obtained. COMPARISON: Left knee radiographs 04/29/2020 FINDINGS: There is a total left knee arthroplasty in near-anatomic alignment without patellar resurfa cing. No fracture. No periprosthetic lucency to suggest loosening or infection. Osteopenia is noted. There is a small knee joint effusion. IMPRESSION: 1. Total left knee arthroplasty in near-anatomic alignment. 2. Small knee joint effusion. Reviewed, dictated and finalized at location A.
[2021-11-15 20:10] VITALS: BP 194/91; PULSE 79; RESP 16; TEMP 36.8; O2SAT 98
--- NOTE | 2021-11-15 20:39 | ECG_ITS ---
Measurements Intervals Fingal Rate: 70 P: 73 CO: 197 QRS: -43 QRSD: 115 T: 78 QT: 450 QTc: 486 Interpretive Statements SINUS RHYTHM LEFT AXIS DEVIATION INTRAVENTRICULAR CONDUCTION DELAY DELAYED PRECORDIAL R/S TRANSITION LEFT VENTRICULAR HYPERTROPHY WITH ST-T CHANGE BORDERLINE ECG COMPARED TO ECG 07/18/2021 15:00:59 SINUS RHYTHM NOW PRESENT LEFT-AXIS DEVIATION NOW PRESENT INTRAVENTRICULAR CONDUCTION DELAY NOW PRESENT SIGNIFICANT T WAVE ABNORMALITY RESOLVED Electronically Signed On 11-16-2021 8:29:43 CDT by Ashutosh Jones D.O.
[2021-11-15 22:33] LABS: Basophils Absolute Auto 0.1 K/mm3 (0.0-0.1); Basophils Percent Auto 0.3 % (0.2-1.2); Eosinophils Absolute Auto 0.9 K/mm3 (0-0.3); Eosinophils Percent Auto 4.8 % (0-4.4); Hematocrit 35.3 % (37.0-47.0); Hemoglobin 11.7 g/dL (12.0-15.0); Immature Granulocyte Absolute 0.08 K/mm3 (0.00-0.031); Immature Granulocyte Percent A 0.4 % (0-0.5); Lymphocytes Percent Auto 14.3 % (18.3-44.2); Mean Corpuscular HGB Conc 33.1 g/dl (32-36); Mean Corpuscular Hemoglobin 28.5 pg (26-34); Mean Corpuscular Volume 85.9 fl (80-100); Mean Platelet Volume 10.5 fl (7.4-10.4); Monocytes Percent Auto 5.2 % (2.6-8.5); Neutrophils Absolute Auto 13.6 K/mm3 (1.3-6.7); Platelet Count Result 360 k/mm3 (150-375); Red Blood Count 4.11 M/mm3 (4.2-5.4); Red Cell Distribution Width 18.6 % (11.5-14.5); White Blood Count 18.2 K/mm3 (4.5-10.0)
[2021-11-15 22:44] LABS: Alanine Aminotransferase 11 U/L (6-35); Alkaline Phosphatase 53 U/L (38-126); Anion Gap 13 mmol/L (8-16); Aspartate Amino Transferase 25 U/L (14-36); Bilirubin,Total 0.4 mg/dL (0.2-1.3); Blood Urea Nitrogen 71 mg/dL (7-17); Calcium 9.2 mg/dL (8.4-10.2); Carbon Dioxide 19 mmol/L (22-30); Chloride 108 mmol/L (98-107); Estimated Glomerular Filt Rate 9; Glucose 120 mg/dL (65-110); Potassium 4.7 mmol/L (3.4-5.0); Sodium 140 mmol/L (137-145)
[2021-11-15 22:46] LABS: INR 1.1; Prothrombin Time 13.3 Seconds (11.1-14.7)
[2021-11-15 22:47] LABS: Partial Thromboplastin Time 25.4 SECONDS (22.3-36.8)
[2021-11-16] VITALS (27 sets, daily range): BP systolic 100–211; BP diastolic 47–93; PULSE 54–82; RESP 14–20; TEMP 36.5–37.5; O2SAT 94–100; BMI 29.5
--- NOTE | 2021-11-16 00:07 | ED.WEAKNESS ---
HPI - Weakness General Chief complaint: Weakness Stated complaint: near syncopy Time Seen by Provider: 11/15/21 20:16 History of Present Illness HPI Narrative: Patient is an 81-year-old female who presents ER with syncope. Patient was getting cleaned up after using the bathroom when she lost consciousness was held up by 2 of her family members. Unconscious while upright for about 10 minutes. When she was placed on the floor by EMS patient woke up within 30 seconds. Patient denies chest pain or shortness of breath. No new fevers or chills or sweats. She gets dialysis through a right side dialysis catheter. Family reports she has been having issues with clotting and is being getting heparin during her dialysis treatments. Related Data Home Medications Medication Instructions Recorded Confirmed aspirin 325 mg tablet 325 mg PO DAILY 01/30/19 10/22/21 cholecalciferol (vitamin D3) 50 50 mcg PO DAILY 07/05/19 10/22/21 mcg (2,000 unit) capsule (Vitamin D3) bimatoprost 0.01 % eye drops 1 drp EACH EYE QPM 04/28/20 10/22/21 (Sharon) bumetanide 1 mg tablet 1 mg PO BID 06/25/20 10/22/21 calcitriol 0.25 mcg capsule 0.25 mcg PO BID 07/15/21 10/22/21 Allergies Allergy/AdvReac Type Severity Reaction Status Date / Time benazepril Allergy Unknown Swelling Verified 10/22/21 08:38 of Lip/Tongue/Throat lisinopril Allergy Unknown Anaphylaxis Verified 10/22/21 08:38 Review of Systems Review of Systems: All systems reviewed & are unremarkable except as noted in HPI and below Constitutional: Constitutional: Denies chills, Denies fatigue and Denies fever(s) ENT: Denies nasal congestion and Denies sore throat Cardiovascular: Cardiovascular: Denies chest pain, Denies rapid heart rate and Denies radiating jaw, neck or arm pain Respiratory: Respiratory: Denies cough and Denies dyspnea Gastrointestinal: Gastrointestinal: Denies abdominal pain, Denies nausea and Denies vomiting Genitourinary: Genitourinary: Denies nocturia and Denies dysuria [facility] Past Medical History Medical History Anemia Atherosclerotic heart disease of [place] coronary artery without angina pectoris Carotid artery disease CHF exacerbation Congestive heart failure Essential (primary) hypertension Hypothyroidism, unspecified Nausea Obstructive sleep apnea Primary generalized (osteo)arthritis Screening mammogram, encounter for Type II diabetes mellitus with renal manifestations Surgical History Surgical History H/O cataract extraction History of bunionectomy of left great toe History of right hip replacement Presence of left artificial knee joint Presence of right artificial hip joint Presence of right artificial knee joint Family History Family History Mother Family history of diabetes mellitus in first degree relative Patient's mother is Acute myocardial infarction Diabetes mellitus Sibling Family history of sarcoidosis Family history of lupus erythematosus Father , age 49 [place] Acute myocardial infarction Other Cerebrovascular accident Family history of arthritis Hypertension Social History Social History Social History: The patient has 9 children. Her daughter that lives in [place] is a durable power lead ramp agent for healthcare. The patient desires to be a full code. 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 She is . She used to smoke many years ago. No alcohol or illicit drugs. Smoking packs per day: 1 Smoking cigarettes per day: 20.0 Years smoked: 15 Smoking pack-years: 15.00 Smoking status: Former smoker Second hand tobacco smoke exposure: No Smoking end date: 06/13/79 Alcohol intake: never Substance use: never Substance
[2021-11-16 00:25] LABS: Appearance Urine Clear (Clear); Bilirubin Urine Negative (Negative); Blood Urine 2+ (Negative); Color Urine Yellow (Yellow); Glucose Urine UA Negative (Negative); Ketones Urine Negative (Negative); Leukocyte Esterase Ur 1+ LEU/UL (Negative); Nitrate Urine Negative (Negative); Protein Urine 3+ mg/dL (Negative); Urobilinogen Urine 0.2 mg/dL (<2.0)
[2021-11-16 00:39] LABS: Add Urine Microscopic? YES
[2021-11-16 00:41] LABS: Bacteria Urine Trace /hpf; Mucus Urine Rare /lpf; Squamous Epithelial Cell Urine Few /hpf (Few)
[2021-11-16] MEDS: hydrALAZINE HCL 20 MG/ML VIAL 10 MG IV PUSH (00:50)
[2021-11-16 02:30] LABS: SARS-CoV-2 RNA PCR Negative
--- NOTE | 2021-11-16 03:07 | ADMGEN ---
This patient, Lilian Mandel, was admitted to IMU Room 205-01 AT 0307. Patient/family oriented to hospital policies and general routines including ID bracelet, bed and alarms, visiting hours, pain management, procedures, bathroom and other care routines, personal items, smoking policy, room service/diet, and visiting hours. Information on how to activate the Rapid Response Team has been discussed. Patient/Family are encouraged to report perceived risks to care and to ask questions if they do not understand what they are told or what they should do.
[2021-11-16] MEDS: hydrALAZINE HCL 25 MG TABLET 75 MG PO (04:06)
[2021-11-16] MEDS: carvediloL 25 MG TABLET PO (04:06)
[2021-11-16] MEDS: BUMETANIDE 1 MG TABLET PO (04:06)
[2021-11-16] MEDS: amLODIPine BESYLATE 5 MG TABLET PO (05:23)
[2021-11-16 08:25] LABS: Basophils Percent Auto 0.5 % (0.2-1.2); Eosinophils Absolute Auto 0.1 K/mm3 (0-0.3); Eosinophils Percent Auto 1.7 % (0-4.4); Hematocrit 32.9 % (37.0-47.0); Hemoglobin 9.9 g/dL (12.0-15.0); Immature Granulocyte Absolute 0.02 K/mm3 (0.00-0.031); Immature Granulocyte Percent A 0.3 % (0-0.5); Lymphocytes Absolute Auto 1.03 K/mm3 (0.9-3.2); Lymphocytes Percent Auto 15.8 % (18.3-44.2); Mean Corpuscular HGB Conc 30.1 g/dl (32-36); Mean Corpuscular Hemoglobin 30.3 pg (26-34); Mean Corpuscular Volume 100.6 fl (80-100); Mean Platelet Volume 9.1 fl (7.4-10.4); Monocytes Absolute Auto 0.4 K/mm3 (0.1-0.6); Monocytes Percent Auto 6.6 % (2.6-8.5); Neutrophils Absolute Auto 4.9 K/mm3 (1.3-6.7); Neutrophils Percent Auto 75.1 % (45.5-73.1); Platelet Count Result 348 k/mm3 (150-375); Red Blood Count 3.27 M/mm3 (4.2-5.4); Red Cell Distribution Width 13.7 % (11.5-14.5); White Blood Count 6.5 K/mm3 (4.5-10.0)
--- NOTE | 2021-11-16 10:54 | PM.IMHP ---
H&P: HPI History of Present Illness Date/Time: 11/16/21 10:54 Chief Complaint: Syncope Narrative: 81yo female with hx of ESRD, CHF and DM brought to ED after having a syncopal episode. Patient is alert and oriented but is vague about the events leading up to her hospitalization. She does live alone. She is walks with a walker and cane. Her daughter and [id number]-got were in the house at the time. Patient was in the bathroom alone getting up off the toilet but was having difficulty with weakness and called for help. Again she gives vague details but she denies chest pain, lightheadedness, dizziness, or shortness of breath prior to the event. She was not straining. She was not having a bowel movement. She denies any nausea, vomiting or diarrhea. No recent fever or chills. No odynophagia or dysphagia. No cough. No abdominal pain. No dysuria or hematuria. There has been no changes in her medications. She has been eating normally. When patient was stood to get cleaned, she became unconscious. Patient was placed on the floor and within 30 seconds she awoke. Per EMS notes, they were called due to possible stroke. They found the patient lying on the bathroom floor asking for help. She was alert and oriented x4. Her skin was pale, cool and clammy. Family at the scene stated patient was seated on the toilet urinating and upon completion went to stand up but became lightheaded and had a sounds like a near syncopal episode. Patient at that time denied losing consciousness. Family state patient it is eyes were open but she was not responding for about 30 seconds. Patient was lowered to the ground by the family at which point EMS was contacted. Blood pressure was 206/90 with a heart rate of 66. Glucose 143. Cj coma scale was 15. No evidence of CVA. Patient brought to the emergency room for evaluation. In the ED, blood pressure was 194/91. White count was 18K. Chest x-ray was clear. COVID test was negative. Urinalysis was abnormal but not consistent with UTI. EKG showed LVH. She was given hydralazine x2, Norvasc, Bumex, and Coreg and admitted for further care. She feels well today but complains of left leg turned out and pain with movement. Spoke with daughter who states that the patient asked for help while sitting on the toilet. When they stood her to help her with a depends, patient began to shake her eyes were fixated. They would sitter down in her symptoms improved initially. She had 2-3 episodes of these. She did slide to the floor. No head injury. Daughter states there has been no new medications. FOR[facility]LY [facility], [facility] Past Medical History Medical History (Updated 11/16/21 @ 11:28 by Clyde Marin MD) Anemia Atherosclerotic heart disease of [place] coronary artery without angina pectoris Carotid artery disease Congestive heart failure Coronary artery disease Diastolic dysfunction End stage renal disease Essential (primary) hypertension Hypothyroidism, unspecified Obstructive sleep apnea Primary generalized (osteo)arthritis Renal osteodystrophy Screening mammogram, encounter for Type II diabetes mellitus with renal manifestations Surgical History Surgical History H/O cataract extraction History of bunionectomy of left great toe History of right hip replacement Presence of left artificial knee joint Presence of right artificial hip joint Presence of right artificial knee joint Family History Family History Mother Family history of diabetes mellitus in first degree relative Patient's mother is Acute myocardial infarction Diabetes mellitus Sibling Family history of sarcoidosis Family history of lupus erythematosus Father , age 49 [place] Acute myocardial infarction Other Cerebrovascular accident Family history of arthritis Hypertension Social History Social History (Reviewed
--- NOTE | 2021-11-16 11:22 | PM.CNNEP ---
Assessment and Plan Assessment and plan (1) End stage renal disease: Code(s): N18.6 - End stage renal disease Status: Chronic Assessment and Plan: the patient has end-stage renal disease. She is under the care of Dr. Fulton. She dialyzes 3 times a week on Wednesdays and Fridays. This is due to diabetes and hypertension. Possibly vascular disease as well. She is due for dialysis today. However it is a holiday and the nurse on-call is already doing to ICU patient has and will be done till this evening so will do her dialysis in the morning. Volume status looks okay. Potassium is below 5. (2) Syncope: Code(s): R55 - Syncope and collapse Status: Acute Assessment and Plan: etiology for the syncope is unclear. She does have coronary disease and had an SD. possibly a cardiac issue? Perhaps a cardiology consult would be warranted tomorrow morning. She is on short-acting blood pressure medications which may cause some variability in blood pressure. It does not look like she is volume depleted. She had not had a dialysis since last Tuesday. Her blood pressure was not low. She has not been having orthostatic dizziness or other symptoms. Will check TSH and cortisol level. We can check orthostatic blood pressure readings. (3) Hypertension, uncontrolled: Code(s): I10 - Essential (primary) hypertension Status: Acute Assessment and Plan: blood pressure was very high on admission at 211/93. However has come down nicely to 131 just with reinstitution of her blood pressure meds. She is currently on amlodipine, carvedilol, and hydralazine. She is allergic to Adams inhibitors with angioedema so we cannot give those or ARBs. Perhaps we should get rid of the hydralazine, especially with her history of coronary disease and pre change her amlodipine to nifedipine to smoothen out her blood pressure readings. (4) Diabetes: Code(s): E11.9 - Type 2 diabetes mellitus without complications Status: Chronic Assessment and Plan: The patient is on Accu-Cheks and sliding-scale insulin Per hospitalist. (5) Obstructive sleep apnea: Code(s): G47.33 - Obstructive sleep apnea (adult) (pediatric) Status: Chronic (6) Diastolic dysfunction: Code(s): I51.89 - Other ill-defined heart diseases Status: Acute Assessment and Plan: Probably due to her hypertension. (7) Coronary artery disease: Code(s): I25.10 - Atherosclerotic heart disease of [place] coronary artery without angina pectoris Status: Acute Assessment and Plan: She has had an SD before. (8) Anemia: Qualifiers: Anemia type: due to chronic kidney disease Chronic kidney disease stage: stage 4 (severe) Qualified Code(s): N18.4 - Chronic kidney disease, stage 4 (severe); D63.1 - Anemia in chronic kidney disease Code(s): D64.9 - Anemia, unspecified Status: Chronic Assessment and Plan: hemoglobin is doing pretty well at 9.9. (9) Renal osteodystrophy: Code(s): N25.0 - Renal osteodystrophy Status: Acute Assessment and Plan: Will check a phosphorus level in the morning History of Present Illness Reason for Consult Consult date: 11/16/21 Chief Complaint Chief complaint: Syncope,Uncontrolled HTN History of Present Illness Narrative: Lilian is a very pleasant 81-year-old lady who has multiple bone up whole problems including hypertension, end-stage renal disease on dialysis 3 times a week, anemia, renal osteodystrophy, history of SD, carotid artery disease, CHF, hypothyroidism, sleep apnea and diabetes. The patient was feeling fine yesterday evening and doing her ADLs in the bathroom. She was sitting on the closed toilet seat and then garth to a standing position, felt lightheaded, and then fainted. Her family members found her and brought her to the ER. It is unclear how long she w
[2021-11-16 12:08] LABS: Hemoglobin A1C 4.6 % (<5.7)
[2021-11-16 12:21] LABS: Glucose Point of Care 170 mg/dl (65-105)
[2021-11-16 12:30] LABS: Chloride 102 mmol/L (98-107); Potassium 4.5 mmol/L (3.4-5.0); Sodium 139 mmol/L (137-145)
[2021-11-16 12:31] LABS: Albumin Level 3.6 g/dL (3.5-5.1); Anion Gap 16 mmol/L (8-16); Blood Urea Nitrogen 79 mg/dL (7-17); Calcium 8.3 mg/dL (8.4-10.2); Carbon Dioxide 21 mmol/L (22-30); Estimated CRCL calculation 9 ml/min; Estimated Glomerular Filt Rate 10; Glucose 148 mg/dL (65-110); Magnesium 2.1 mg/dL (1.6-2.3); Phosphorus 5.4 mg/dL (2.5-4.5)
[2021-11-16 12:40] LABS: Troponin I < 0.012 ng/mL (0.000-0.034)
[2021-11-16] MEDS: ASPIRIN 325 MG TABLET PO (13:02)
[2021-11-16] MEDS: ATORVASTATIN 20 MG TABLET PO (13:02)
[2021-11-16] MEDS: BISACODYL 5 MG TABLET EC PO (13:05)
[2021-11-16 14:23] LABS: Folic Acid 12.2 ng/mL (2.76->20)
[2021-11-16] MEDS: NIFEdipine 30 MG TAB.ER.24 PO (15:08)
[2021-11-16 16:33] LABS: Glucose Point of Care 177 mg/dl (65-105)
[2021-11-16 20:01] LABS: Glucose Point of Care 153 mg/dl (65-105)
[2021-11-16] MEDS: PANTOPRAZOLE 40 MG TABLET PO (20:53)
[2021-11-16] MEDS: LATANOPROST 0.005% OP SOLN 2.5 ML BTL 1 DROP EACH EYE (20:53)
[2021-11-16] MEDS: carvediloL 12.5 MG TABLET PO (20:53)
[2021-11-17] VITALS (30 sets, daily range): BP systolic 110–173; BP diastolic 41–76; PULSE 52–72; RESP 14–18; TEMP 36.3–37.1; O2SAT 94–100
--- NOTE | 2021-11-17 | ECHO_ITS ---
Patient Info Name: Lilian Mandel Age: 81 years : 1940 Gender: Female Ht: 66 in Wt: 182 lbs BSA: 1.98 m2 HR: 55 bpm BP: 149 / 57 mmHg Technical Quality: Good Exam Date: 11/17/2021 3:08 PM Exam Location: [facility] Pulmonary Patient Status: Inpatient Admit Date: 11/16/2021 Staff Ordering Physician: Ti Alcantara MD Windows Security Analyst: Siri Awad RDCS Attending Provider: Rhiannon Valenzuela DO Exam Type: CA echo doppler color flow Study Info Indications R55 - Syncope and collapse Complete two-dimensional, color flow and Doppler transthoracic echocardiogram is performed. Summary 1. Complete two-dimensional, color flow and Doppler transthoracic echocardiogram is performed. 2. Left ventricular chamber dimension is normal. 3. Left ventricular systolic function is normal, estimated at 55-60%. 4. There is mildly increased left ventricular wall thickness. 5. Entire anterior, septal and anteroseptal wall appear hypokinetic. 6. The left ventricular diastolic function is grade I diastolic dysfunction. 7. E/e' 11 is mildly elevated. 8. There is moderate aortic valve sclerosis. Left Ventricle E/e' 11 is mildly elevated. Left ventricular chamber dimension is normal. Left ventricular systolic function is normal, estimated at 55-60%. There is mildly increased left ventricular wall thickness. The left ventricular diastolic function is grade I diastolic dysfunction. Entire anterior, septal and anteroseptal wall appear hypokinetic. Right Ventricle Right ventricular systolic function is normal and with normal TAPSE 1.7 cm. Right ventricular chamber dimension is normal. Left Atria Left atrial chamber dimension is normal. Right Atria Right atrial chamber dimension is normal. Aortic Valve The aortic valve is trileaflet. There is moderate aortic valve sclerosis. There is no aortic valve stenosis. There is no aortic valve regurgitation. Pulmonic Valve There is no pulmonic regurgitation. Mitral Valve There is no mitral valve stenosis. There is no mitral valve regurgitation. Tricuspid Valve There is no tricuspid valve regurgitation. Pericardium/Pleural There is no pericardial effusion. Inferior Vena Cava Normal inferior vena cava with >50% collapse upon inspiration consistent with normal right atrial pressure, 5 mmHg. Aorta The aortic root size at the sinus of Valsalva is normal. Left Ventricular Outflow Tract Name Value Normal LVOT 2D LVOT Diameter 2.0 cm LVOT Doppler LVOT Peak Gradient 3 mmHg LVOT Mean Gradient 2 mmHg LVOT VTI 24 cm LVOT VTI/AV VTI Ratio 0.7 LVOT Stroke Volume 74 ml LVOT CO 3.9 l/min LVOT CI 2.0 l/min/m2 Mitral Valve Name Value Normal MV Doppler
[2021-11-17 05:35] LABS: Albumin Level 3.3 g/dL (3.5-5.1); Anion Gap 17 mmol/L (8-16); Blood Urea Nitrogen 85 mg/dL (7-17); Calcium 7.8 mg/dL (8.4-10.2); Carbon Dioxide 21 mmol/L (22-30); Chloride 99 mmol/L (98-107); Estimated CRCL calculation 8 ml/min; Estimated Glomerular Filt Rate 8; Glucose 131 mg/dL (65-110); Phosphorus 5.6 mg/dL (2.5-4.5); Potassium 4.2 mmol/L (3.4-5.0); Sodium 137 mmol/L (137-145)
[2021-11-17] MEDS: LEVOTHYROXINE SODIUM 50 MCG TABLET PO (06:03)
[2021-11-17 08:34] LABS: Glucose Point of Care 152 mg/dl (65-105)
--- NOTE | 2021-11-17 08:55 | PC.NURSE ---
0842- to dialysis room for treatment
--- NOTE | 2021-11-17 09:15 | PCPTNOTE ---
Pt off the floor for dialysis. Will follow
--- NOTE | 2021-11-17 10:38 | PM.PNNEP ---
Progress Note: A&P Assessment and Plan (1) End stage renal disease: Code(s): N18.6 - End stage renal disease Status: Chronic Assessment and Plan: Patient has end-stage renal disease. This is due to diabetes and hypertension. She will continue dialysis on a Tuesday schedule while in the hospital because of dialysis nurse staffing. (2) Syncope: Code(s): R55 - Syncope and collapse Status: Acute Assessment and Plan: Etiology is not entirely clear but may be due to variations in her blood pressure. (3) Hypertension, uncontrolled: Code(s): I10 - Essential (primary) hypertension Status: Acute Assessment and Plan: Her blood pressure seems to rise and fall. Her hydralazine has been discontinued so now she is only on long-acting antihypertensives which may reduce this variation. She is not on any alpha blockers or centrally acting agents which could exacerbate this. She is not on any antidepressant either. Her blood pressure dropped when standing from 128/48 lying to 100/47 sitting to 105/74 standing. Interestingly, her pulse did rise with stand more consistent with pre renal factors rather than with autonomic neuropathy. She does have diabetes and so could have a component of autonomic neuropathy contributing to her drops in blood pressure. I asked the nurse to change the ultrafiltration orders to just 1L today. May be a higher dry weight will help. (4) Diabetes: Code(s): E11.9 - Type 2 diabetes mellitus without complications Status: Chronic Assessment and Plan: On sliding scale insulin and Accu-Cheks per hospitalist (5) Obstructive sleep apnea: Code(s): G47.33 - Obstructive sleep apnea (adult) (pediatric) Status: Chronic (6) Diastolic dysfunction: Code(s): I51.89 - Other ill-defined heart diseases Status: Acute Assessment and Plan: per echo (7) Coronary artery disease: Code(s): I25.10 - Atherosclerotic heart disease of [place] coronary artery without angina pectoris Status: Acute Assessment and Plan: no chest pain or shortness of breath (8) Anemia: Qualifiers: Anemia type: due to chronic kidney disease Chronic kidney disease stage: stage 4 (severe) Qualified Code(s): N18.4 - Chronic kidney disease, stage 4 (severe); D63.1 - Anemia in chronic kidney disease Code(s): D64.9 - Anemia, unspecified Status: Chronic Assessment and Plan: check a hemoglobin tomorrow (9) Renal osteodystrophy: Code(s): N25.0 - Renal osteodystrophy Status: Acute Assessment and Plan: phosphorus is slightly high at 5.6. Calcium was a little low at 7.8 than albumin of 3.3. Will start calcium acetate binders. Subjective Date/time seen: 11/17/21 10:38 Interval history: Lilian is feeling a little bit better today. She is on dialysis and tolerating it well. Her blood pressure is high right now. She is getting some fluid off but if she comes down into the normal range will reduced ultrafiltration. Review of Systems Cardiovascular: Cardiovascular: Reports no additional cardiovascular complaints Respiratory: Respiratory: Reports no additional respiratory complaints Gastrointestinal: Gastrointestinal: Reports no additional gastrointestinal complaints Genitourinary: Genitourinary: Reports no additional female genitourinary complaints Exam Narrative: WDWN in NAD skin no rash head ncat lungs clear cor reg no rub abd BS+ nontender and soft ext no edema. Objective Data Vital Signs Vital Signs: Vital Signs - 24 hr 11/16/21 11:36 11/16/21 11:38 11/16/21 11:42 Temperature Pulse Rate 58 L 68 74 Respiratory Rate Blood Pressure 128/48 L 100/47 L 105/74 Pulse Oximetry Oxygen Delivery 11/16/21 12:00 11/16/21 12:30 11/16/21 14:00 Temperature 36.5 C Pulse Rate 58 L 54 L 57 L Respiratory Rate 18 Blo
[2021-11-17] MEDS: EPOETIN ALFA-EPBX 10,000 UNITS/ML VIAL 10000 UNITS IV PUSH (12:03)
[2021-11-17] MEDS: HEPARIN SODIUM 1,000 UNITS/ML VIAL 6000 UNITS (12:03)
[2021-11-17] MEDS: ASPIRIN 325 MG TABLET PO (12:57)
[2021-11-17] MEDS: CHOLECALCIFEROL 1,000 UNITS TABLET 2000 UNITS PO (12:57)
[2021-11-17] MEDS: carvediloL 12.5 MG TABLET PO ×2 (12:58→20:40)
[2021-11-17] MEDS: ATORVASTATIN 20 MG TABLET PO (12:58)
[2021-11-17] MEDS: PANTOPRAZOLE 40 MG TABLET PO ×2 (12:59→20:40)
[2021-11-17] MEDS: CALCIUM ACETATE 667 MG TABLET PO ×2 (12:59→18:13)
[2021-11-17 13:02] LABS: Glucose Point of Care 124 mg/dl (65-105)
--- NOTE | 2021-11-17 13:11 | PC.NURSE ---
1245- returned to room - dialysis treatment completed- VSS - - am medications given as ordered
[2021-11-17] MEDS: NIFEdipine 30 MG TAB.ER.24 PO (13:30)
--- NOTE | 2021-11-17 14:41 | PM.IMPN ---
Progress Note: A&P Assessment and Plan (1) Syncope: Code(s): R55 - Syncope and collapse Status: Acute Assessment and Plan: Patient with syncopal episode when standing. Possibly orthostatic hypotension although her blood pressure was markedly elevated on EMS arrival. Patient has minimal memory of the event to suggest she did have a syncopal episode. No symptoms preceding the event to suggest other etiologies. No new medications. WBC elevated but felt to be a stress response since repeat has normalized. Consider vasovagal as well. Patient was alert and oriented postevent so seizures less likely. Consider cardiac dysrhythmia. Tele showing no malignant rhythms. Echo EF 55-60% with Grade I diastolic dysfunction. Trop negative. TSH and Cortisol normal. Most likely etiology is labile BP - autonomic insufficiency? Orthostatic vitals noted. Hydralazine held and Norvasc changed to Nifedipine. BP reasonable. May need to allow for elevated BP so she does not drop too low. Continue PT/OT (2) Hypertension, uncontrolled: Code(s): I10 - Essential (primary) hypertension Status: Acute Assessment and Plan: Patient's blood pressure was markedly elevated on admission but orthostatic with BP dropping to 105. She has longstanding hypertension. Adjustments made as above. We also have held her Bumex as well. Monitor BP and adjust medications as needed. Advance Coreg back to home dose when able. (3) Diabetes: Code(s): E11.9 - Type 2 diabetes mellitus without complications Status: Chronic Assessment and Plan: A1c 4.6. Glucose was normal in the field. Will stop Januvia. Continue sliding scale protocol (4) End stage renal disease: Code(s): N18.6 - End stage renal disease Status: Chronic Assessment and Plan: Patient has end-stage renal disease and has dialysis Tuesday at [facility]. Per daughter, There have been issues with her dialysis access with clotting requiring heparin. Patient currently getting dialysis. Nephrology following and appreciate their input. (5) Anemia: Qualifiers: Anemia type: due to chronic kidney disease Chronic kidney disease stage: stage 4 (severe) Qualified Code(s): N18.4 - Chronic kidney disease, stage 4 (severe); D63.1 - Anemia in chronic kidney disease Code(s): D64.9 - Anemia, unspecified Status: Chronic Assessment and Plan: Hemoglobin was 11.7 on admission which is much higher than her baseline. Iron studies noted in May consistent with anemia chronic disease. B12/Folate levels normal. This may be an improvement of her chronic anemia or she may be dehydrated. Hemoglobin on repeat is 10. Overall feel the anemia is related to end-stage renal disease. Continue to monitor. Plan DVT prophylaxis: SCDs Code status: Full Diet: Renal dialysis Subjective Date/time seen: 11/17/21 14:41 Interval history: 81yo female with hx of ESRD, CHF and DM brought to ED after having a syncopal episode.?? Patient feels cold. She was seen during dialysis. She does check her blood pressure 2 to 3 times a week at home does not know what runs. She denies any chest pain or shortness of breath. Exam Narrative: AF 97.4 138/56 57 16 99% ra Gen - NARD Chest - lungs are clear to auscultation anteriorly. Right chest tunneled catheter from IJ exiting right upper chest currently accessed CV - RRR. S1-S2. Tele no significant dysrhythmias Abd -soft. Nontender. Positive bowel sounds Ext - no pedal edema. Psych - normal mood and affect. Skin - warm and dry. Objective Data Vital Signs Vital Signs: Vital Signs - 24 hr 11/16/21 16:00 11/16/21 16:00 11/16/21 16:00 Temperature 98.0 F Pulse Rate 56 L 56 L 56 L Respiratory Rate 20 20 Blood Pressure 167/51 H Pulse Oximetry 100 100 Oxygen Delivery Room Air 11/16/21 18:00 11/16/21 20:00 11/16/21 20:53 Temperatu
--- NOTE | 2021-11-17 15:37 | PCPTNOTE ---
Pt off the floor at dialysis. Will follow.
[2021-11-17 17:59] LABS: Glucose Point of Care 119 mg/dl (65-105)
[2021-11-17 20:10] LABS: Glucose Point of Care 200 mg/dl (65-105)
[2021-11-17] MEDS: LATANOPROST 0.005% OP SOLN 2.5 ML BTL 1 DROP EACH EYE (20:40)
[2021-11-17] MEDS: BUMETANIDE 1 MG TABLET PO (20:40)
[2021-11-18] VITALS (16 sets, daily range): BP systolic 135–162; BP diastolic 45–71; PULSE 54–68; RESP 14–18; TEMP 36.4–37.1; O2SAT 94–100
[2021-11-18 04:44] LABS: Hematocrit 30.7 % (37.0-47.0); Hemoglobin 9.4 g/dL (12.0-15.0); Mean Corpuscular HGB Conc 30.6 g/dl (32-36); Mean Corpuscular Hemoglobin 30.9 pg (26-34); Mean Platelet Volume 8.9 fl (7.4-10.4); Platelet Count Result 280 k/mm3 (150-375); Red Blood Count 3.04 M/mm3 (4.2-5.4); Red Cell Distribution Width 13.9 % (11.5-14.5); White Blood Count 4.8 K/mm3 (4.5-10.0)
[2021-11-18 05:00] LABS: Albumin Level 3.1 g/dL (3.5-5.1); Anion Gap 5 mmol/L (8-16); Blood Urea Nitrogen 36 mg/dL (7-17); Calcium 7.9 mg/dL (8.4-10.2); Carbon Dioxide 31 mmol/L (22-30); Chloride 96 mmol/L (98-107); Estimated CRCL calculation 13 ml/min; Estimated Glomerular Filt Rate 16; Glucose 91 mg/dL (65-110); Phosphorus 3.5 mg/dL (2.5-4.5); Potassium 4.1 mmol/L (3.4-5.0); Sodium 132 mmol/L (137-145)
[2021-11-18] MEDS: LEVOTHYROXINE SODIUM 50 MCG TABLET PO (05:47)
[2021-11-18] MEDS: ACETAMINOPHEN 325 MG TABLET 650 MG PO (08:28)
[2021-11-18 08:44] LABS: Glucose Point of Care 94 mg/dl (65-105)
[2021-11-18] MEDS: carvediloL 12.5 MG TABLET PO ×2 (12:19→20:03)
[2021-11-18] MEDS: NIFEdipine 30 MG TAB.ER.24 PO (12:19)
[2021-11-18] MEDS: PANTOPRAZOLE 40 MG TABLET PO ×2 (13:33→20:03)
[2021-11-18] MEDS: ATORVASTATIN 20 MG TABLET PO (13:33)
[2021-11-18] MEDS: ASPIRIN 325 MG TABLET PO (13:33)
[2021-11-18] MEDS: CHOLECALCIFEROL 1,000 UNITS TABLET 2000 UNITS PO (13:33)
[2021-11-18 13:34] LABS: Glucose Point of Care 155 mg/dl (65-105)
[2021-11-18] MEDS: CALCIUM ACETATE 667 MG TABLET PO ×2 (13:45→17:53)
--- NOTE | 2021-11-18 14:54 | PM.PNNEP ---
Progress Note: A&P Assessment and Plan (1) End stage renal disease: Code(s): N18.6 - End stage renal disease Status: Chronic Assessment and Plan: Patient has end-stage renal disease. This is due to diabetes and hypertension. She will continue dialysis on a Tuesday schedule while in the hospital because of dialysis nurse staffing. I wrote orders for tomorrow (2) Syncope: Code(s): R55 - Syncope and collapse Status: Acute Assessment and Plan: Etiology is not entirely clear but may be due to variations in her blood pressure. she also had an abnormal echo. Cardiology evaluating. (3) Hypertension, uncontrolled: Code(s): I10 - Essential (primary) hypertension Status: Acute Assessment and Plan: Her blood pressure seems to rise and fall. Blood pressure seems better ranging from 136-151. She is on just long-acting medications right now. (4) Diabetes: Code(s): E11.9 - Type 2 diabetes mellitus without complications Status: Chronic Assessment and Plan: On sliding scale insulin and Accu-Cheks per hospitalist (5) Obstructive sleep apnea: Code(s): G47.33 - Obstructive sleep apnea (adult) (pediatric) Status: Chronic (6) Diastolic dysfunction: Code(s): I51.89 - Other ill-defined heart diseases Status: Acute Assessment and Plan: per echo (7) Coronary artery disease: Code(s): I25.10 - Atherosclerotic heart disease of [place] coronary artery without angina pectoris Status: Acute Assessment and Plan: no chest pain or shortness of breath (8) Anemia: Qualifiers: Anemia type: due to chronic kidney disease Chronic kidney disease stage: stage 4 (severe) Qualified Code(s): N18.4 - Chronic kidney disease, stage 4 (severe); D63.1 - Anemia in chronic kidney disease Code(s): D64.9 - Anemia, unspecified Status: Chronic Assessment and Plan: check a hemoglobin tomorrow (9) Renal osteodystrophy: Code(s): N25.0 - Renal osteodystrophy Status: Acute Assessment and Plan: phosphorus is slightly high at 5.6. Calcium was a little low at 7.8 than albumin of 3.3. Will start calcium acetate binders. Subjective Date/time seen: 11/18/21 08:15 Interval history: Lilian is feeling Okay today. No chest pain or shortness of breath Exam Narrative: WDWN in NAD skin no rash head ncat lungs clear bilaterally cor reg no rub or gallop abd BS+ nontender and soft ext no edema. Objective Data Vital Signs Vital Signs: Vital Signs - 24 hr 11/17/21 16:00 11/17/21 16:00 11/17/21 16:00 Temperature 36.4 C L Pulse Rate 56 L 56 L 61 Respiratory Rate 18 Blood Pressure 135/60 Pulse Oximetry 100 Oxygen Delivery Room Air 11/17/21 20:00 11/17/21 20:40 11/17/21 20:00 Temperature 36.8 C Pulse Rate 72 60 61 Respiratory Rate 16 Blood Pressure 133/41 L Pulse Oximetry 100 Oxygen Delivery 11/17/21 20:00 11/17/21 22:00 11/17/21 23:16 Temperature 36.4 C Pulse Rate 61 54 L 57 L Respiratory Rate 16 16 Blood Pressure 142/55 H Pulse Oximetry 100 99 Oxygen Delivery Room Air 11/18/21 00:00 11/18/21 00:00 11/18/21 02:00 Temperature Pulse Rate 64 64 58 L Respiratory Rate 16 Blood Pressure Pulse Oximetry 99 Oxygen Delivery Room Air 11/18/21 04:00 11/18/21 04:00 11/18/21 04:00 Temperature 36.4 C Pulse Rate 63 63 62 Respiratory Rate 16 16 Blood Pressure 136/71 Pulse Oximetry 99 100 Oxygen Delivery Room Air 11/18/21 06:00 11/18/21 08:35 11/18/21 08:00 Temperature 37.1 C Pulse Rate 66 63 Respiratory Rate 16 Blood Pressure 135/56 L Pulse Oximetry 98 Oxygen Delivery Room Air 11/18/21 08:00 11/18/21 10:00 11/18/21 12:00 Temperature Pulse Rate 60 57 L 54 L Respiratory Rate Blood Pressure Pulse Oximetry Oxygen Delivery
--- NOTE | 2021-11-18 15:37 | PM.IMPN ---
Progress Note: A&P Assessment and Plan (1) Syncope: Code(s): R55 - Syncope and collapse Status: Acute Assessment and Plan: Patient with syncopal episode when standing. Possibly orthostatic hypotension although her blood pressure was markedly elevated on EMS arrival. Patient has minimal memory of the event to suggest she did have a syncopal episode. No symptoms preceding the event to suggest other etiologies. No new medications. WBC elevated but felt to be a stress response since repeat has normalized. Consider vasovagal as well. Patient was alert and oriented postevent so seizures less likely. Consider cardiac dysrhythmia. Tele showing no malignant rhythms. Echo EF 55-60% with Grade I diastolic dysfunction. Trop negative. TSH and Cortisol normal. Most likely etiology is labile BP - autonomic insufficiency? Orthostatic vitals noted. Hydralazine held and Norvasc changed to Nifedipine. BP reasonable. May need to allow for elevated BP so she does not drop too low. Continue PT/OT (2) Hypertension, uncontrolled: Code(s): I10 - Essential (primary) hypertension Status: Acute Assessment and Plan: Patient's blood pressure was markedly elevated on admission but orthostatic with BP dropping to 105. She has longstanding hypertension. Adjustments made as above. We also have held her Bumex as well. Monitor BP and adjust medications as needed. Advance Coreg back to home dose when able. (3) Diabetes: Code(s): E11.9 - Type 2 diabetes mellitus without complications Status: Chronic Assessment and Plan: A1c 4.6. Glucose was normal in the field. Will stop Januvia. Continue sliding scale protocol (4) End stage renal disease: Code(s): N18.6 - End stage renal disease Status: Chronic Assessment and Plan: Patient has end-stage renal disease and has dialysis Tuesday at [facility]. Per daughter, There have been issues with her dialysis access with clotting requiring heparin. Patient currently getting dialysis. Nephrology following and appreciate their input. (5) Anemia: Qualifiers: Anemia type: due to chronic kidney disease Chronic kidney disease stage: stage 4 (severe) Qualified Code(s): N18.4 - Chronic kidney disease, stage 4 (severe); D63.1 - Anemia in chronic kidney disease Code(s): D64.9 - Anemia, unspecified Status: Chronic Assessment and Plan: Hemoglobin was 11.7 on admission which is much higher than her baseline. Iron studies noted in May consistent with anemia chronic disease. B12/Folate levels normal. This may be an improvement of her chronic anemia or she may be dehydrated. Hemoglobin on repeat is 10. Overall feel the anemia is related to end-stage renal disease. Continue to monitor. Plan DVT prophylaxis: SCDs Code status: Full Diet: Renal dialysis Subjective Date/time seen: 11/18/21 15:37 Interval history: 81yo female with hx of ESRD, CHF and DM brought to ED after having a syncopal episode.?? No new complaints. Going for stress test today denies any chest pain or shortness of breath. Review of Systems Review of Systems: All systems reviewed & are unremarkable except as noted in HPI and below Exam Narrative: Gen - NARD Chest - lungs are clear to auscultation anteriorly. Right chest tunneled catheter from IJ exiting right upper chest CV - RRR.? S1-S2.? Tele no significant dysrhythmias Abd -soft.? Nontender.? Positive bowel sounds Ext - no pedal edema. Psych - normal mood and affect.? Skin - warm and dry. ? Objective Data Vital Signs Vital Signs: Vital Signs - 24 hr 11/17/21 16:00 11/17/21 16:00 11/17/21 16:00 Temperature 97.5 F L Pulse Rate 56 L 56 L 61 Respiratory Rate 18 Blood Pressure 135/60 Pulse Oximetry 100 Oxygen Delivery Room Air 11/17/21 20:00 11/17/21 20:40 11/17/21 20:00 Temperature 98.3 F Pulse Rate 72 60 61 Respir
[2021-11-18 16:24] LABS: Glucose Point of Care 180 mg/dl (65-105)
--- NOTE | 2021-11-18 17:21 | EST_ITS ---
Patient Info Name: Lilian Mandel Age: 81 years : 1940 Gender: Female Ht: 66 in Wt: 182 lbs BSA: 1.98 m2 HR: 57 bpm BP: 208 / 81 mmHg Heart Rhythm: Sinus Rhythm Exam Date: 11/18/2021 12:13 PM Exam Location: [facility] Stress Patient Status: Inpatient Admit Date: 11/16/2021 Staff Ordering Physician: Ti Alcantara MD Attending Provider: Luis Carlos Miller MD Exercise Technologist: Jasmyn Bishop CT Exercise Physician: Ashutosh Jones DO Exam Type: CA stress huyen w NM Study Info Indications R55 - Syncope and collapse A regadenoson stress test was performed. Summary 1. 1. Negative lexiscan stress test for ischemic ST changes by ECG criteria. 2. 2. Baseline hypertension. 3. 3. Nuclear scan to follow and will be reported separately. Please correlate with it. 4. 4. Patient informed of the above results. Protocol: Lexiscan Stress ECG Details Stage: REST Duration (min): 2 min : 11 sec HR (bpm): 57 SBP (mmHg): 208 DBP (mmHg): 81 Stage: REST Duration (min): 8 min : 4 sec HR (bpm): 57 SBP (mmHg): 183 DBP (mmHg): 76 Stage: STAGE 1 Duration (min): 1 min : 0 sec HR (bpm): 59 SBP (mmHg): 183 DBP (mmHg): 76 Stage: RECOVERY Duration (min): 1 min : 0 sec HR (bpm): 59 SBP (mmHg): 178 DBP (mmHg): 77 Stage: RECOVERY Duration (min): 2 min : 0 sec HR (bpm): 58 SBP (mmHg): 178 DBP (mmHg): 77 Stage: RECOVERY Duration (min): 3 min : 0 sec HR (bpm): 58 SBP (mmHg): 189 DBP (mmHg): 77 Stage: RECOVERY Duration (min): 4 min : 0 sec HR (bpm): 59 SBP (mmHg): 189 DBP (mmHg): 77 Stage: RECOVERY Duration (min): 5 min : 0 sec HR (bpm): 57 SBP (mmHg): 180 DBP (mmHg): 78 Stage: RECOVERY Duration (min): 6 min : 0 sec HR (bpm): 57 SBP (mmHg): 180 DBP (mmHg): 78 Stage: RECOVERY Duration (min): 7 min : 0 sec HR (bpm): 62 SBP (mmHg): 189 DBP (mmHg): 76 Stage: RECOVERY Duration (min): 8 min : 0 sec HR (bpm): 60 SBP (mmHg): 189 DBP (mmHg): 76 Stage: RECOVERY Duration (min): 9 min : 0 sec HR (bpm): 58 SBP (mmHg): 189 DBP (mmHg): 76 Stage: RECOVERY Duration (min): 10 min : 0 sec HR (bpm): 57 SBP (mmHg): 195 DBP (mmHg): 82 Stage: RECOVERY Duration (min): 11 min : 0 sec HR (bpm): 71 SBP (mmHg): 159 DBP (mmHg): 70 Stage: RECOVERY Duration (min): 12 min : 0 sec HR (bpm): 65 SBP (mmHg): 159 DBP (mmHg): 70 Stage: RECOVERY Duration (min): 13 min : 0 sec HR (bpm): 62 SBP (mmHg): 105 DBP (mmHg): 62 Stage: RECOVERY Duration (min): 13 min : 5 sec HR (bpm): 62 SBP (mmHg): 105 DBP (mmHg): 62 Rest HR: 57 bpm Peak HR: 72 bpm Rest Sys BP:
[2021-11-18] MEDS: LATANOPROST 0.005% OP SOLN 2.5 ML BTL 1 DROP EACH EYE (20:03)
[2021-11-18 21:36] LABS: Glucose Point of Care 172 mg/dl (65-105)
[2021-11-19] VITALS (20 sets, daily range): BP systolic 124–189; BP diastolic 50–105; PULSE 54–82; RESP 14–20; TEMP 36.6–37; O2SAT 97–100
[2021-11-19 04:52] LABS: Hematocrit 31.9 % (37.0-47.0); Mean Corpuscular HGB Conc 31.3 g/dl (32-36); Mean Corpuscular Hemoglobin 30.3 pg (26-34); Mean Corpuscular Volume 96.7 fl (80-100); Platelet Count Result 288 k/mm3 (150-375); Red Cell Distribution Width 13.5 % (11.5-14.5); White Blood Count 5.2 K/mm3 (4.5-10.0)
[2021-11-19 05:43] LABS: Albumin Level 3.3 g/dL (3.5-5.1); Anion Gap 12 mmol/L (8-16); Blood Urea Nitrogen 47 mg/dL (7-17); Carbon Dioxide 27 mmol/L (22-30); Chloride 96 mmol/L (98-107); Estimated CRCL calculation 10 ml/min; Estimated Glomerular Filt Rate 11; Glucose 79 mg/dL (65-110); Phosphorus 4.6 mg/dL (2.5-4.5); Potassium 4.2 mmol/L (3.4-5.0); Sodium 135 mmol/L (137-145)
[2021-11-19] MEDS: LEVOTHYROXINE SODIUM 50 MCG TABLET PO (05:47)
[2021-11-19 07:23] LABS: Glucose Point of Care 82 mg/dl (65-105)
[2021-11-19] MEDS: EPOETIN ALFA-EPBX 10,000 UNITS/ML VIAL 10000 UNITS IV PUSH (09:39)
[2021-11-19 12:21] LABS: Glucose Point of Care 163 mg/dl (65-105)
[2021-11-19] MEDS: NIFEdipine 30 MG TAB.ER.24 PO (12:46)
[2021-11-19] MEDS: CALCIUM ACETATE 667 MG TABLET PO ×2 (12:46→17:45)
[2021-11-19] MEDS: CHOLECALCIFEROL 1,000 UNITS TABLET 2000 UNITS PO (12:46)
[2021-11-19] MEDS: PANTOPRAZOLE 40 MG TABLET PO (12:47)
[2021-11-19] MEDS: carvediloL 12.5 MG TABLET PO (12:47)
[2021-11-19] MEDS: ATORVASTATIN 20 MG TABLET PO (12:48)
[2021-11-19] MEDS: BUMETANIDE 1 MG TABLET PO ×2 (12:48→17:45)
[2021-11-19] MEDS: ASPIRIN 325 MG TABLET PO (12:48)
[2021-11-19] MEDS: ACETAMINOPHEN 325 MG TABLET 650 MG PO (13:02)
--- NOTE | 2021-11-19 13:33 | PM.DS ---
DS: Admitting Diagnosis Discharge Date 11/19/2021 Admitting Diagnosis Syncopal episode DS: Discharge Diagnosis Discharge Diagnosis (1) Syncope: Code(s): R55 - Syncope and collapse Status: Acute (2) Hypertension, uncontrolled: Code(s): I10 - Essential (primary) hypertension Status: Acute (3) Diabetes: Code(s): E11.9 - Type 2 diabetes mellitus without complications Status: Chronic (4) End stage renal disease: Code(s): N18.6 - End stage renal disease Status: Chronic (5) Anemia: Qualifiers: Anemia type: due to chronic kidney disease Chronic kidney disease stage: stage 4 (severe) Qualified Code(s): N18.4 - Chronic kidney disease, stage 4 (severe); D63.1 - Anemia in chronic kidney disease Code(s): D64.9 - Anemia, unspecified Status: Chronic DS: Summary Hospital Course Reason for hospitalization: 81yo female with hx of ESRD, CHF and DM brought to ED after having a syncopal episode.? Patient is alert and oriented but is vague about the events leading up to her hospitalization.? She does live alone.? She is walks with a walker and cane.? Her daughter and [id number] were in the house at the time.? Patient was in the bathroom alone getting up off the toilet but was having difficulty with weakness and called for help.? Again she gives vague details but she denies chest pain, lightheadedness, dizziness, or shortness of breath prior to the event.? She was not straining.? She was not having a bowel movement.? She denies any nausea, vomiting or diarrhea.? No recent fever or chills.? No odynophagia or dysphagia.? No cough.? No abdominal pain.? No dysuria or hematuria.? There has been no changes in her medications.? She has been eating normally.? When patient was stood to get cleaned, she became unconscious.? Patient was placed on the floor and within 30 seconds she awoke. Per EMS notes, they were called due to possible stroke.? They found the patient lying on the bathroom floor asking for help.? She was alert and oriented x4.? Her skin was pale, cool and clammy.? Family at the scene stated patient was seated on the toilet urinating and upon completion went to stand up but became lightheaded and had a sounds like a near syncopal episode.? Patient at that time denied losing consciousness.? Family state patient it is eyes were open but she was not responding for about 30 seconds.? Patient was lowered to the ground by the family at which point EMS was contacted.? Blood pressure was 206/90 with a heart rate of 66.? Glucose 143. Cj coma scale was 15.? No evidence of CVA.? Patient brought to the emergency room for evaluation. In the ED, blood pressure was 194/91.? White count was 18K.? Chest x-ray was clear.? COVID test was negative.? Urinalysis was abnormal but not consistent with UTI.? EKG showed LVH.? She was given hydralazine x2, Norvasc, Bumex, and Coreg and admitted for further care. She feels well today but complains of left leg turned out and pain with movement. Spoke with daughter who states that the patient asked for help while sitting on the toilet.? When they stood her to help her with a depends, patient began to shake her eyes were fixated.? They would sitter down in her symptoms improved initially.? She had 2-3 episodes of these.? She did slide to the floor.? No head injury.? Daughter states there has been no new medications. Hospital Course: # Syncope: Patient with syncopal episode when standing.? Possibly orthostatic hypotension although her blood pressure was markedly elevated on EMS arrival.? Patient has minimal memory of the event to suggest she did have a syncopal episode. No symptoms preceding the event to suggest other etiologies.? No new medications. WBC elevated but felt to be a stress response since repeat has normalized.? Consider vasovagal as well.? Patient was alert and oriented postevent so seizures less likely.? Consider cardiac dysrhythmia. Tele showing no malignan
--- NOTE | 2021-11-19 14:26 | PM.PNNEP ---
Progress Note: A&P Assessment and Plan (1) End stage renal disease: Code(s): N18.6 - End stage renal disease Status: Chronic Assessment and Plan: Patient has end-stage renal disease. This is due to diabetes and hypertension. dialysis is underway. If she goes home today she can get her full dialysis tomorrow at the clinic. (2) Syncope: Code(s): R55 - Syncope and collapse Status: Acute Assessment and Plan: Etiology is not entirely clear but may be due to variations in her blood pressure. she also had an abnormal echo. Cardiology evaluating. (3) Hypertension, uncontrolled: Code(s): I10 - Essential (primary) hypertension Status: Acute Assessment and Plan: Her blood pressure seems to rise and fall. Blood pressure seems better ranging from 120 to 160 She is on just long-acting medications right now. (4) Diabetes: Code(s): E11.9 - Type 2 diabetes mellitus without complications Status: Chronic Assessment and Plan: On sliding scale insulin and Accu-Cheks per hospitalist (5) Obstructive sleep apnea: Code(s): G47.33 - Obstructive sleep apnea (adult) (pediatric) Status: Chronic (6) Diastolic dysfunction: Code(s): I51.89 - Other ill-defined heart diseases Status: Acute Assessment and Plan: per echo (7) Coronary artery disease: Code(s): I25.10 - Atherosclerotic heart disease of [place] coronary artery without angina pectoris Status: Acute Assessment and Plan: no chest pain or shortness of breath (8) Anemia: Qualifiers: Anemia type: due to chronic kidney disease Chronic kidney disease stage: stage 4 (severe) Qualified Code(s): N18.4 - Chronic kidney disease, stage 4 (severe); D63.1 - Anemia in chronic kidney disease Code(s): D64.9 - Anemia, unspecified Status: Chronic Assessment and Plan: check a hemoglobin tomorrow (9) Renal osteodystrophy: Code(s): N25.0 - Renal osteodystrophy Status: Acute Assessment and Plan: phosphorus is slightly high at 5.6. Calcium was a little low at 7.8 than albumin of 3.3. Will start calcium acetate binders. Subjective Date/time seen: 11/19/21 12:00 Interval history: Lilian is feeling Okay today. She is on dialysis and tolerating it well. She is just finishing up. Exam Narrative: WDWN in NAD skin no rash or subcu nodules head ncat lungs clear bilaterally cor reg no rub or gallop abd BS+ nontender and soft ext no edema. Objective Data Vital Signs Vital Signs: Vital Signs - 24 hr 11/18/21 16:00 11/18/21 16:00 11/18/21 16:00 Temperature 36.9 C Pulse Rate 61 60 Respiratory Rate 16 Blood Pressure 158/45 H Pulse Oximetry 99 Oxygen Delivery Room Air 11/18/21 18:00 11/18/21 20:03 11/18/21 20:00 Temperature Pulse Rate 66 62 59 L Respiratory Rate Blood Pressure Pulse Oximetry Oxygen Delivery 11/18/21 20:00 11/18/21 21:02 11/18/21 20:00 Temperature 36.5 C Pulse Rate 59 L 56 L Respiratory Rate 16 14 Blood Pressure 162/48 H Pulse Oximetry 99 94 100 Oxygen Delivery Room Air Room Air 11/18/21 21:48 11/19/21 00:00 11/19/21 00:00 Temperature 36.6 C Pulse Rate 58 L 54 L 54 L Respiratory Rate 16 Blood Pressure 131/105 H Pulse Oximetry 100 Oxygen Delivery 11/19/21 00:00 11/19/21 02:00 11/19/21 04:00 Temperature Pulse Rate 54 L 55 L 58 L Respiratory Rate 16 Blood Pressure Pulse Oximetry 100 Oxygen Delivery Room Air 11/19/21 04:00 11/19/21 04:00 11/19/21 05:50 Temperature 36.6 C Pulse Rate 58 L 58 L 64 Respiratory Rate 16 14 Blood Pressure 168/50 H Pulse Oximetry 100 100 Oxygen Delivery Room Air 11/19/21 08:00 11/19/21 08:00 11/19/21 08:00 Temperature 36.9 C Pulse Rate 55 L 56 L Respiratory Rate 16 Blood Pressure 148/54 H Pulse Oximetry 99 Oxygen Delivery
== END 2021-11-19 18:14 | disposition home or self-care (01) ==
LOC: ANHED 11-16 02:02 → ANHIMU 11-16 02:38
PROVIDERS: Internal Medicine; Internal Medicine Nephrology; Admitting Provider Internal Medicine; Emergency Provider Emergency Medicine; PCP Internal Medicine; Visit Provider Internal Medicine
DX: R55 Syncope and collapse (principal); I13.2 Hypertensive heart and chronic kidney disease with heart failure and with stage 5 chronic kidney disease, or end stage renal disease; E11.22 Type 2 diabetes mellitus with diabetic chronic kidney disease; N18.6 End stage renal disease; I50.30 Unspecified diastolic (congestive) heart failure; Z99.2 Dependence on renal dialysis; D63.1 Anemia in chronic kidney disease; N25.0 Renal osteodystrophy; I25.10 Atherosclerotic heart disease of native coronary artery without angina pectoris; I77.9 Disorder of arteries and arterioles, unspecified; E03.9 Hypothyroidism, unspecified; G47.33 Obstructive sleep apnea (adult) (pediatric); M19.91 Primary osteoarthritis, unspecified site; D72.829 Elevated white blood cell count, unspecified; M16.0 Bilateral primary osteoarthritis of hip; I25.2 Old myocardial infarction; I45.4 Nonspecific intraventricular block; I44.4 Left anterior fascicular block; M25.462 Effusion, left knee; H92.09 Otalgia, unspecified ear; I35.8 Other nonrheumatic aortic valve disorders; Z20.822 Contact with and (suspected) exposure to COVID-19; R82.90 Unspecified abnormal findings in urine; Z96.641 Presence of right artificial hip joint; Z96.653 Presence of artificial knee joint, bilateral; Z79.84 Long term (current) use of oral hypoglycemic drugs; Z79.82 Long term (current) use of aspirin; Z87.891 Personal history of nicotine dependence; Z79.899 Other long term (current) drug therapy; Z83.3 Family history of diabetes mellitus; Z82.49 Family history of ischemic heart disease and other diseases of the circulatory system; Z82.3 Family history of stroke; Z82.61 Family history of arthritis
CPT/HCPCS: 36415; 51701; 70450; 71046; 73502; 73562; 78452; 80053; 80069; 81001; 82533; 82607; 82746; 82948; 83036; 83735; 84443; 84484; 85025; 85027; 85610; 85730; 87040; 93005; 93017; 93306; 96374; 97110; 97161; 97165; 97530; 97535; 99285; A9270; A9502; C9803; G0257; G0378; J0360; J1644; J2785; J7030; Q5105; U0003; U0005

== ENCOUNTER 2021-12-04 12:56 | Emergency (ER) | payer MEDICARE, SELFPAY ==
--- NOTE | ~2021-12-04 | XR_ITS ---
XR abdomen/kub 1V 12/04/2021 15:59 INDICATION: Flank pain TECHNIQUE: KUB COMPARISON: 07/18/2021 FINDINGS: Bowel gas pattern is normal. Moderate colonic fecal loading. There is no evidence of free a ir, mass, organomegaly, ascites or obstruction. No abnormal calculi are seen. Moderate lumbar spondy losis with levoscoliosis. There are gallstones. There are splenic arterial calcifications in the left upper abdomen. 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 Th ere is a right hip arthroplasty. IMPRESSION: 1: Nonobstructive bowel gas pattern. 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 3: Cholelithiasis.. Reviewed, dictated and finalized at location A. IMPRESSION: 1: Nonobstructive bowel gas pattern. 2: Severe osteoarthritis of the left hip with avascular necrosis of the femora l head. 3: Cholelithiasis..
[2021-12-04 13:26] VITALS: BP 155/49; PULSE 76; RESP 16; TEMP 36.3; O2SAT 99
[2021-12-04 13:26] LABS: Hematocrit 38.5 % (37.0-47.0); Hemoglobin 11.4 g/dL (12.0-15.0); Mean Corpuscular HGB Conc 29.6 g/dl (32-36); Mean Corpuscular Hemoglobin 29.3 pg (26-34); Mean Platelet Volume 8.9 fl (7.4-10.4); Platelet Count Result 205 k/mm3 (150-375); Red Blood Count 3.89 M/mm3 (4.2-5.4); Red Cell Distribution Width 13.7 % (11.5-14.5); White Blood Count 6.8 K/mm3 (4.5-10.0)
[2021-12-04 13:40] LABS: Alanine Aminotransferase 10 U/L (6-35); Alkaline Phosphatase 67 U/L (38-126); Anion Gap 11 mmol/L (8-16); Aspartate Amino Transferase 24 U/L (14-36); Bilirubin,Total 0.5 mg/dL (0.2-1.3); Blood Urea Nitrogen 24 mg/dL (7-17); Calcium 8.8 mg/dL (8.4-10.2); Carbon Dioxide 25 mmol/L (22-30); Chloride 102 mmol/L (98-107); Estimated CRCL calculation 16 ml/min; Estimated Glomerular Filt Rate 21; Glucose 162 mg/dL (65-110); Lipase 108 U/L (23-300); Potassium 3.7 mmol/L (3.4-5.0); Sodium 138 mmol/L (137-145)
[2021-12-04 13:48] LABS: Eosinophils Absolute Manual 0.13 K/mm3 (0.02-0.5); Eosinophils Percent Manual 2 % (0-4); Lymphocytes Absolute Manual 1.42 K/mm3 (1.1-4.5); Monocytes Absolute Manual 0.13 K/mm3 (0.1-0.90); Monocytes Percent Manual 2 % (3-9); Neutrophils Percent Manual 75 % (46-73); Platelet Estimate Adequate (Adequate); Total Cells Counted 100
[2021-12-04 13:49] LABS: Ovalocytes 1+ (NORMAL); Schistocytes None Seen (NORMAL)
--- NOTE | 2021-12-04 18:07 | ED.GENADULT ---
HPI - General Adult General Chief complaint: Abdominal Pain Stated complaint: abd pain, constipation Time Seen by Provider: 12/04/21 15:08 History of Present Illness HPI narrative: Patient is an 81-year-old female who presents the ER with constipation. Has not had a bowel movement in couple days. She reports she feels like she has some stool at her exit but cannot get it to move. No diarrhea. No fevers or chills or sweats. She is without vomiting or abdominal distention. She is passing gas. She has history of constipation in the past. Related Data Home Medications Medication Instructions Recorded Confirmed aspirin 325 mg tablet 325 mg PO DAILY 01/30/19 11/16/21 cholecalciferol (vitamin D3) 50 50 mcg PO DAILY 07/05/19 11/16/21 mcg (2,000 unit) capsule (Vitamin D3) bimatoprost 0.01 % eye drops 1 drp EACH EYE QPM 04/28/20 11/16/21 ([place]) Allergies Allergy/AdvReac Type Severity Reaction Status Date / Time benazepril Allergy Unknown Swelling Verified 10/22/21 08:38 of Lip/Tongue/Throat lisinopril Allergy Unknown Anaphylaxis Verified 10/22/21 08:38 Review of Systems Review of Systems: All systems reviewed & are unremarkable except as noted in HPI and below Constitutional: Constitutional: Denies chills and Denies fever(s) Respiratory: Respiratory: Denies cough and Denies dyspnea Gastrointestinal: Gastrointestinal: Denies abdominal pain, Denies bloating, Reports constipation, Denies diarrhea, Denies nausea and Denies vomiting Genitourinary: Genitourinary: Denies nocturia and Denies dysuria [facility] Past Medical History Medical History (Updated 12/04/21 @ 18:12 by Nash White MD) Anemia Atherosclerotic heart disease of [place] coronary artery without angina pectoris Carotid artery disease Congestive heart failure Coronary artery disease Diastolic dysfunction End stage renal disease Essential (primary) hypertension Hypothyroidism, unspecified Obstructive sleep apnea Primary generalized (osteo)arthritis Renal osteodystrophy Screening mammogram, encounter for Type II diabetes mellitus with renal manifestations Surgical History Surgical History H/O cataract extraction History of bunionectomy of left great toe History of right hip replacement Presence of left artificial knee joint Presence of right artificial hip joint Presence of right artificial knee joint Family History Family History Mother Family history of diabetes mellitus in first degree relative Patient's mother is Acute myocardial infarction Diabetes mellitus Sibling Family history of sarcoidosis Family history of lupus erythematosus Father , age 49 [place] Acute myocardial infarction Other Cerebrovascular accident Family history of arthritis Hypertension Social History Social History Social History: The patient has 9 children. The patient desires to be a full code. 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 She is . She used to smoke many years ago. No alcohol or illicit drugs. She dominates her dtr who lives in [place] to be the individual who would make decisions for her if she is unable. Smoking packs per day: 1 Smoking cigarettes per day: 20.0 Years smoked: 15 Smoking pack-years: 15.00 Smoking status: Former smoker Second hand tobacco smoke exposure: No Smoking end date: 06/13/79 Alcohol intake: never Substance use: never Substance use type: does not use Gender identity (if verbalized by the patient): Female Spiritual care concerns: No Agree to blood products: Yes Exam Narrative: GENERAL: Well-appearing, well-nourished, and in no acute distress. HEAD: Normocephalic, atraumatic. CHEST: Clear to auscultation. No respiratory distress. HEART: Regular r
== END 2021-12-04 19:07 | disposition home or self-care (01) ==
PROVIDERS: Emergency Provider Emergency Medicine; PCP Internal Medicine
DX: K59.00 Constipation, unspecified (principal); I12.0 Hypertensive chronic kidney disease with stage 5 chronic kidney disease or end stage renal disease; E11.22 Type 2 diabetes mellitus with diabetic chronic kidney disease; N18.6 End stage renal disease; I50.9 Heart failure, unspecified; I25.10 Atherosclerotic heart disease of native coronary artery without angina pectoris; D64.9 Anemia, unspecified; E03.9 Hypothyroidism, unspecified; M16.12 Unilateral primary osteoarthritis, left hip; G47.33 Obstructive sleep apnea (adult) (pediatric); Z98.49 Cataract extraction status, unspecified eye; Z96.641 Presence of right artificial hip joint; Z96.653 Presence of artificial knee joint, bilateral; Z79.82 Long term (current) use of aspirin; Z87.891 Personal history of nicotine dependence; K80.20 Calculus of gallbladder without cholecystitis without obstruction; M87.852 Other osteonecrosis, left femur; Z79.84 Long term (current) use of oral hypoglycemic drugs
CPT/HCPCS: 36415; 74018; 80053; 83690; 85025; 99283

== ENCOUNTER 2022-11-11 13:25 | Outpatient (CLI) | payer MEDICARE, SELFPAY ==
[2022-11-11 13:57] LABS: Basophils Absolute Auto 0.1 K/mm3 (0.0-0.1); Basophils Percent Auto 0.8 % (0.2-1.2); Eosinophils Absolute Auto 0.1 K/mm3 (0-0.3); Eosinophils Percent Auto 2.4 % (0-4.4); Hematocrit 39.4 % (37.0-47.0); Immature Granulocyte Absolute 0.02 K/mm3 (0.00-0.031); Immature Granulocyte Percent A 0.3 % (0-0.5); Lymphocytes Absolute Auto 0.94 K/mm3 (0.9-3.2); Lymphocytes Percent Auto 15.9 % (18.3-44.2); Mean Corpuscular HGB Conc 30.5 g/dl (32-36); Mean Corpuscular Hemoglobin 30.5 pg (26-34); Monocytes Absolute Auto 0.6 K/mm3 (0.1-0.6); Monocytes Percent Auto 10.2 % (2.6-8.5); Neutrophils Absolute Auto 4.2 K/mm3 (1.3-6.7); Neutrophils Percent Auto 70.4 % (45.5-73.1); Platelet Count Result 216 k/mm3 (150-375); Red Blood Count 3.94 M/mm3 (4.2-5.4); Red Cell Distribution Width 15.5 % (11.5-14.5); White Blood Count 5.9 K/mm3 (4.5-10.0)
[2022-11-11 14:07] LABS: Hemoglobin A1C 5.1 % (<5.7)
[2022-11-11 14:10] LABS: Alanine Aminotransferase 26 U/L (6-35); Albumin Level 4.3 g/dL (3.5-5.1); Alkaline Phosphatase 75 U/L (38-126); Anion Gap 7 mmol/L (8-16); Aspartate Amino Transferase 29 U/L (14-36); Bilirubin,Total 0.4 mg/dL (0.2-1.3); Blood Urea Nitrogen 39 mg/dL (7-17); Carbon Dioxide 30 mmol/L (22-30); Chloride 100 mmol/L (98-107); Cholesterol 175 mg/dL (0-200); Estimated Glomerular Filt Rate 12; Glucose 109 mg/dL (65-110); HDL Direct 63 mg/dL; Potassium 4.8 mmol/L (3.4-5.0); Sodium 137 mmol/L (137-145); Triglycerides 80 mg/dL (<150)
[2022-11-11 14:21] LABS: LDL Cholesterol Direct 74 mg/dL
[2022-11-11 15:47] LABS: Free T4 Free Thyroxine 1.26 ng/mL (0.78-2.19)
== END 2022-11-11 13:26 | disposition home or self-care (01) ==
LOC: ANHLAB 13:29
PROVIDERS: PCP Nurse Practitioner Family; Visit Provider Nurse Practitioner Family
DX: E78.2 Mixed hyperlipidemia (principal); D64.9 Anemia, unspecified; N17.9 Acute kidney failure, unspecified; E11.29 Type 2 diabetes mellitus with other diabetic kidney complication; E03.9 Hypothyroidism, unspecified
CPT/HCPCS: 36415; 80053; 80061; 83036; 84439; 84443; 85025

== ENCOUNTER 2022-11-16 11:00 | Emergency (ER) | payer MEDICARE, SELFPAY ==
[2022-11-16] VITALS (34 sets, daily range): BP systolic 189–256; BP diastolic 70–212; PULSE 77–88; RESP 16–28; TEMP 36.6; O2SAT 93–100
--- NOTE | ~2022-11-16 | XR_ITS ---
EXAMINATION: XR chest 2V DATE: 11/16/2022 12:40 INDICATION: Shortness of breath TECHNIQUE: frontal and lateral views of the chest were obtained. COMPARISON: Chest radiograph dated 11/15/21 FINDINGS: Perihilar and lower lung predominant increased interstitial pattern in both lungs with peribronchial cuffing consistent with mild pulmonary edema. There are also small bilateral pleural effusions with b lunting at the posterior sulci. No pneumothorax. Heart size is within normal limits for AP technique. IMPRESSION: 1. Bilateral perihilar and lower lung predominant increased interstitial pattern and favor mild pulmo nary edema over pneumonia. 2. Small bilateral pleural effusions. Reviewed, dictated and finalized at location A. IMPRESSION: 1. Bilateral perihilar and lower lung predominant increased interstitial patter n and favor mild pulmonary edema over pneumonia. 2. Small bilateral pleural effusions.
--- NOTE | 2022-11-16 11:11 | ECG_ITS ---
Measurements Intervals [place] Rate: 82 P: 73 MN: 168 QRS: -38 QRSD: 118 T: 96 QT: 408 QTc: 477 Interpretive Statements SINUS RHYTHM LEFT AXIS DEVIATION INTRAVENTRICULAR CONDUCTION DELAY BORDERLINE R WAVE PROGRESSION, ANTERIOR LEADS LEFT VENTRICULAR HYPERTROPHY AND ST-T CHANGE BASELINE ARTIFACT- I, III, AVR, AVL, AVF BORDERLINE ECG COMPARED TO ECG 11/15/2021 21:58:35 NO SIGNIFICANT CHANGES Electronically Signed On 11-16-2022 11:27:01 CDT by Ashutosh Jones D.O.
[2022-11-16 12:10] LABS: Basophils Percent Auto 0.4 % (0.2-1.2); Eosinophils Percent Auto 0.4 % (0-4.4); Hematocrit 36.2 % (37.0-47.0); Hemoglobin 11.2 g/dL (12.0-15.0); Immature Granulocyte Absolute 0.03 K/mm3 (0.00-0.031); Immature Granulocyte Percent A 0.4 % (0-0.5); Lymphocytes Absolute Auto 0.58 K/mm3 (0.9-3.2); Lymphocytes Percent Auto 7.7 % (18.3-44.2); Mean Corpuscular HGB Conc 30.9 g/dl (32-36); Mean Corpuscular Hemoglobin 30.6 pg (26-34); Mean Corpuscular Volume 98.9 fl (80-100); Mean Platelet Volume 9.5 fl (7.4-10.4); Monocytes Absolute Auto 0.6 K/mm3 (0.1-0.6); Monocytes Percent Auto 7.5 % (2.6-8.5); Neutrophils Absolute Auto 6.3 K/mm3 (1.3-6.7); Neutrophils Percent Auto 83.6 % (45.5-73.1); Platelet Count Result 223 k/mm3 (150-375); Red Blood Count 3.66 M/mm3 (4.2-5.4); Red Cell Distribution Width 15.9 % (11.5-14.5); White Blood Count 7.6 K/mm3 (4.5-10.0)
--- NOTE | 2022-11-16 12:14 | ED.GENADULT ---
HPI - General Adult General Chief complaint: Shortness of Breath/Dyspnea Stated complaint: SOB Time Seen by Provider: 11/16/22 11:58 History of Present Illness HPI narrative: 82-year-old female with history of chronic kidney disease on dialysis on Tuesday presented the ED for evaluation some shortness of breath with associated nausea vomiting diarrhea. Patient reports that yesterday she was feeling poorly and did not feel that she could sit in a dialysis chair for 4 hours. Patient states that she began feeling worse in the evening and through this morning. Patient states this morning she was having some shortness of breath after an episode of emesis. Upon arrival to the ED patient is saturating well on room air and states that her breathing feels better. Patient is present with family. Family states that the patient does not ambulate. Patient does take hydralazine 75 mg in the morning but did not take this medication. Patient denies any current chest pain shortness of breath nausea vomiting diarrhea or abdominal pain. Patient does have dialysis scheduled for tomorrow. Patient follows up with Dr. roberts. Related Data Home Medications Medication Instructions Recorded Confirmed atorvastatin 20 mg tablet 20 mg PO DAILY 10/14/22 carvedilol 12.5 mg tablet (Coreg) 12.5 mg PO Q12HR 10/14/22 hydralazine 25 mg tablet 25 mg PO TID 10/14/22 hydralazine 50 mg tablet 50 mg PO TID 10/14/22 Allergies Allergy/AdvReac Type Severity Reaction Status Date / Time benazepril Allergy Severe Swelling Verified 11/16/22 13:08 of Lip/Tongue/Throat lisinopril Allergy Severe Anaphylaxis Verified 11/16/22 13:08 Review of Systems Review of Systems: All systems reviewed & are unremarkable except as noted in HPI and below [facility] Past Medical History Medical History Anemia Atherosclerotic heart disease of [place] coronary artery without angina pectoris Carotid artery disease Congestive heart failure Coronary artery disease Diastolic dysfunction End stage renal disease Essential (primary) hypertension Hypothyroidism, unspecified Obstructive sleep apnea Primary generalized (osteo)arthritis Renal osteodystrophy Screening mammogram, encounter for Type II diabetes mellitus with renal manifestations Surgical History Surgical History H/O cataract extraction History of bunionectomy of left great toe History of right hip replacement Presence of left artificial knee joint Presence of right artificial hip joint Presence of right artificial knee joint Family History Family History Mother Family history of diabetes mellitus in first degree relative Patient's mother is Acute myocardial infarction Diabetes mellitus Sibling Family history of sarcoidosis Family history of lupus erythematosus Father , age 49 [place] Acute myocardial infarction Other Cerebrovascular accident Family history of arthritis Hypertension Social History Social History (Updated 10/14/22 @ 10:55 by Leti Wong MA) Social History: The patient has 9 children. The patient desires to be a full code. 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 She is . She used to smoke many years ago. No alcohol or illicit drugs. She dominates her dtr who lives in [place] to be the individual who would make decisions for her if she is unable. Smoking packs per day: 1 Smoking cigarettes per day: 20.0 Years smoked: 15 Smoking pack-years: 15.00 Smoking status: Former smoker Second hand tobacco smoke exposure: No Smoking end date: 06/13/79 Alcohol intake: never Substance use: never Substance use type: does not use Lack of Transportation: No Lack of Food: Never True Current Housing: I Have Housing Concerned [facility]
[2022-11-16 12:24] LABS: Alanine Aminotransferase 24 U/L (6-35); Albumin Level 4.1 g/dL (3.5-5.1); Alkaline Phosphatase 57 U/L (38-126); Anion Gap 17 mmol/L (8-16); Aspartate Amino Transferase 33 U/L (14-36); Bilirubin,Total 0.7 mg/dL (0.2-1.3); Blood Urea Nitrogen 79 mg/dL (7-17); Calcium 9.6 mg/dL (8.4-10.2); Carbon Dioxide 18 mmol/L (22-30); Chloride 105 mmol/L (98-107); Estimated CRCL calculation 7 ml/min; Estimated Glomerular Filt Rate 7; Glucose 154 mg/dL (65-110); Potassium 5.4 mmol/L (3.4-5.0); Sodium 140 mmol/L (137-145)
[2022-11-16] MEDS: hydrALAZINE HCL 25 MG TABLET 75 MG PO (12:44)
[2022-11-16] MEDS: SODIUM ZIRCONIUM CYCLOSILICATE 10 GM POWD.PACK PO (13:12)
== END 2022-11-16 15:57 | disposition home or self-care (01) ==
PROVIDERS: Preventive Medicine Aerospace Medicine; Emergency Provider Emergency Medicine; PCP Nurse Practitioner Family
DX: R06.02 Shortness of breath (principal); E87.5 Hyperkalemia; I13.2 Hypertensive heart and chronic kidney disease with heart failure and with stage 5 chronic kidney disease, or end stage renal disease; E11.22 Type 2 diabetes mellitus with diabetic chronic kidney disease; N18.6 End stage renal disease; I50.9 Heart failure, unspecified; I25.10 Atherosclerotic heart disease of native coronary artery without angina pectoris; E03.9 Hypothyroidism, unspecified; Z87.891 Personal history of nicotine dependence
CPT/HCPCS: 36415; 71046; 80053; 85025; 93005; 99284; A9270

== ENCOUNTER 2023-01-28 12:42 | Observation (INO) | payer MEDICARE, SELFPAY ==
[2023-01-28] VITALS (9 sets, daily range): BP systolic 152–187; BP diastolic 45–132; PULSE 56–72; RESP 16–25; TEMP 35.9–36.4; O2SAT 97–100; BMI 29.5
--- NOTE | ~2023-01-28 | XR_ITS ---
EXAMINATION: XR chest 2V DATE: 01/28/2023 14:37 INDICATION: Weakness. TECHNIQUE: Frontal and lateral views of the chest were obtained. COMPARISON: Chest 2 views 11/16/2022 FINDINGS: There are small pleural effusions. There is mild atelectasis at the lung bases. No pneumoth orax. Cardiomegaly is noted. IMPRESSION: 1. Small pleural effusions. 2. Cardiomegaly. Reviewed, dictated and finalized at location A. ING ATTENDANT
--- NOTE | 2023-01-28 12:52 | ECG_ITS ---
Measurements Intervals [place] Rate: 57 P: 74 PA: 177 QRS: -34 QRSD: 119 T: -50 QT: 477 QTc: 466 Interpretive Statements SINUS BRADYCARDIA LEFT AXIS DEVIATION INTRAVENTRICULAR CONDUCTION DELAY VOLTAGE CRITERIA FOR LVH BORDERLINE R WAVE PROGRESSION, ANTERIOR LEADS NONSPECIFIC T-WAVE ABNORMALITY- DIFFUSE LEADS BASELINE ARTIFACT- I, III, AVR, AVL, AVF, V1, V4 BORDERLINE ECG COMPARED TO ECG 11/16/2022 11:14:59 SINUS BRADYCARDIA NOW PRESENT Electronically Signed On 01-28-2023 13:04:07 [employer] by Ashutosh Jones D.O.
[2023-01-28 13:14] LABS: Basophils Percent Auto 0.3 % (0.2-1.2); Eosinophils Absolute Auto 0.1 K/mm3 (0-0.3); Hematocrit 30.7 % (37.0-47.0); Hemoglobin 9.3 g/dL (12.0-15.0); Immature Granulocyte Absolute 0.03 K/mm3 (0.00-0.031); Immature Granulocyte Percent A 0.5 % (0-0.5); Lymphocytes Absolute Auto 0.79 K/mm3 (0.9-3.2); Lymphocytes Percent Auto 13.1 % (18.3-44.2); Mean Corpuscular HGB Conc 30.3 g/dl (32-36); Mean Corpuscular Hemoglobin 30.8 pg (26-34); Mean Corpuscular Volume 101.7 fl (80-100); Mean Platelet Volume 10.3 fl (7.4-10.4); Monocytes Absolute Auto 0.4 K/mm3 (0.1-0.6); Monocytes Percent Auto 6.4 % (2.6-8.5); Neutrophils Absolute Auto 4.8 K/mm3 (1.3-6.7); Neutrophils Percent Auto 78.7 % (45.5-73.1); Platelet Count Result 225 k/mm3 (150-375); Red Blood Count 3.02 M/mm3 (4.2-5.4); Red Cell Distribution Width 17.1 % (11.5-14.5); White Blood Count 6.1 K/mm3 (4.5-10.0)
[2023-01-28 13:27] LABS: Alanine Aminotransferase 52 U/L (6-35); Alkaline Phosphatase 59 U/L (38-126); Anion Gap 15 mmol/L (8-16); Aspartate Amino Transferase 39 U/L (14-36); Bilirubin,Total 0.8 mg/dL (0.2-1.3); Blood Urea Nitrogen 104 mg/dL (7-17); Calcium 9.2 mg/dL (8.4-10.2); Carbon Dioxide 20 mmol/L (22-30); Chloride 107 mmol/L (98-107); Estimated CRCL calculation 6 ml/min; Estimated Glomerular Filt Rate 6; Glucose 143 mg/dL (65-110); Potassium 5.7 mmol/L (3.4-5.0); Sodium 142 mmol/L (137-145)
[2023-01-28 14:21] LABS: Appearance Urine Cloudy (Clear); Bacteria Urine 1+ /hpf; Bilirubin Urine Negative (Negative); Blood Urine Negative (Negative); Color Urine Yellow (Yellow); Glucose Urine UA Negative (Negative); Ketones Urine Negative (Negative); Leukocyte Esterase Ur Trace LEU/UL (Negative); Nitrate Urine Negative (Negative); Non Pathogenic Casts 0-2; Protein Urine 3+ mg/dL (Negative); RBC Urine 0-2 /hpf (0-2); Specific Grav Ur 1.016 (1.001-1.035); Squamous Epithelial Cell Urine Moderate /hpf (Few); Urobilinogen Urine 0.2 mg/dL (<2.0); pH Urine 5.5 (5.0-9.0)
[2023-01-28 14:23] LABS: Add Urine Microscopic? YES
[2023-01-28] MEDS: SODIUM ZIRCONIUM CYCLOSILICATE 10 GM POWD.PACK PO (15:04)
--- NOTE | 2023-01-28 16:30 | PM.CNNEP ---
Assessment and Plan Assessment and plan (1) End stage renal disease: Code(s): N18.6 - End stage renal disease Status: Chronic Assessment and Plan: HD tomorrow resume M/W/F dialysis schedule next week follow electrolytes, volume status, and clearance (2) Memory loss: Code(s): R41.3 - Other amnesia Status: Acute Assessment and Plan: evidence of cognitive impairment and possibly early dementia will likely need placement on discharge PT/OT evaluation follow mentation (3) Essential (primary) hypertension: Code(s): I10 - Essential (primary) hypertension Status: Chronic Assessment and Plan: elevated at this time quite elevated even at baseline (and during her dialysis treatments) given #2, unclear if she has been taking her medications regularly resume home medications and adjust as needed (4) Anemia: Qualifiers: Anemia type: due to chronic kidney disease Chronic kidney disease stage: stage 4 (severe) Qualified Code(s): N18.4 - Chronic kidney disease, stage 4 (severe); D63.1 - Anemia in chronic kidney disease Code(s): D64.9 - Anemia, unspecified Status: Chronic Assessment and Plan: low due to missed Mircera dosing with dialysis Epogen with HD follow trend of H/H (5) Diabetes: Code(s): E11.9 - Type 2 diabetes mellitus without complications Status: Chronic Assessment and Plan: reported history on no medications follow sugars intermittently I will continue fall the patient with you while she remains hospitalized and make further recommendations as needed. Thank you for allowing me to participate in the care this patient. History of Present Illness Reason for Consult Consult date: 01/28/23 Reason for consult: end stage renal disease Chief Complaint Chief complaint: Hyperkalemia/Weakness/on Dialysis History of Present Illness Narrative: The patient is an 83-year-old female with a past medical history as outlined below who presented to [facility] Emergency room for further evaluation of generalized weakness. The patient reports that she has been having issues with her memory and is getting more and more forgetful. She subsequently missed her dialysis treatments for this entire week due to issues relating to seting up transportation and being unclear on when she needed to go to dialysis. Apparently, when transport arrived to get her for dialysis today, she was still dressed in her pajamas. Her daughter, was unaware that she missed dialysis and tire week but has noticed that she has had issues with regard to her memory and with regard to simple activities of daily living. She denies any other symptoms with regard to fevers, chills, nausea, vomiting but it would seem that she is not eating appropriate meals according to her daughter as well. Given these ongoing issues as well as the fact that she missed entire week of dialysis, she came to the emergency room for further assessment. Workup and evaluation emergency room demonstrated the patient to be hemodynamically stable if not a bit hypertensive with a systolic BP in the 180s. Routine blood tests demonstrated labs consistent with a known history of end-stage renal disease but with no critical electrolyte abnormalities although her potassium was mildly elevated. She was learned oriented x3 but is clear on further questioning that she has difficulty remembering things that she should know and be aware of according to her daughter. Despite the fact that she missed almost entire week of dialysis, she still makes a reasonable bite of urine which probably likely explains stability in her volume status and electrolytes. Her daughter is requesting that the patient be set up in assisted living as she is fearful that the patient needs further assistance in general. Renal consultation was requested due to her history of end-stage renal diseas
--- NOTE | 2023-01-28 17:09 | ED.WEAKNESS ---
HPI - Weakness General Chief complaint: Weakness Stated complaint: Weak/ missed dialysis Time Seen by Provider: 01/28/23 13:44 Source: patient, family, RN notes reviewed and old records reviewed Mode of arrival: EMS Limitations: other (poor historian) History of Present Illness HPI Narrative: This is an 83 year old female with history DM, hypertension, CHF, ESRD on dialysis who presents for evaluation of weakness. Patient is present with her daughter. Patient lives at home alone and she has not been to her dialysis appointment in 7 days. She reports that she forgets to go to to dialysis. Her daughter states today it was reported patient was still in her pajaars when transport arrived to take her dialysis. Patient states she does not known why she is not going. She denies chest pain, shortness of breath, nausea, vomiting , fever. She does report weakness and puffiness to her face. Her service order dispatcher chief is Dr. Fulton. Related Data Home Medications Medication Instructions Recorded Confirmed atorvastatin 20 mg tablet 20 mg PO DAILY 10/14/22 carvedilol 12.5 mg tablet (Coreg) 12.5 mg PO Q12HR 10/14/22 hydralazine 25 mg tablet 25 mg PO TID 10/14/22 hydralazine 50 mg tablet 50 mg PO TID 10/14/22 Allergies Allergy/AdvReac Type Severity Reaction Status Date / Time benazepril Allergy Severe Swelling Verified 01/28/23 17:23 of Lip/Tongue/Throat lisinopril Allergy Severe Anaphylaxis Verified 01/28/23 17:23 Review of Systems Constitutional: Constitutional: Denies weakness Cardiovascular: Cardiovascular: Denies syncope, Denies rapid heart rate, Denies irregular heart rhythm, Reports leg edema and Denies dyspnea Respiratory: Respiratory: Denies chest congestion, Denies hemoptysis, Denies excessive phlegm production and Denies dyspnea Gastrointestinal: Gastrointestinal: Denies abdominal pain, Denies hematochezia, Denies diarrhea and Denies vomiting Genitourinary: Genitourinary: Denies hematuria and Denies dysuria Musculoskeletal: Musculoskeletal: Denies joint swelling, Denies loss of height and Denies muscle weakness Neurologic: Denies syncope, Denies focal weakness and Reports weakness PMFSH Past Medical History Medical History Anemia Atherosclerotic heart disease of [place] coronary artery without angina pectoris Carotid artery disease Congestive heart failure Coronary artery disease Diastolic dysfunction End stage renal disease Essential (primary) hypertension Hypothyroidism, unspecified Obstructive sleep apnea Primary generalized (osteo)arthritis Renal osteodystrophy Screening mammogram, encounter for Type II diabetes mellitus with renal manifestations Surgical History Surgical History H/O cataract extraction History of bunionectomy of left great toe History of right hip replacement Presence of left artificial knee joint Presence of right artificial hip joint Presence of right artificial knee joint Family History Family History Mother Family history of diabetes mellitus in first degree relative Patient's mother is Acute myocardial infarction Diabetes mellitus Sibling Family history of sarcoidosis Family history of lupus erythematosus Father , age 49 [place] Acute myocardial infarction Other Cerebrovascular accident Family history of arthritis Hypertension Social History Social History Social History: The patient has 9 children. The patient desires to be a full code. 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 She is . She used to smoke many years ago. No alcohol or illicit drugs. She dominates her dtr who lives in [place] to be the individual who would make decisions for her if she is unable. Smoking packs per day: 1
[2023-01-28 18:36] LABS: Influenza A QL RT-PCR Negative (Negative); Influenza B QL RT-PCR Negative (Negative); RSV RNA, RT-PCR Negative (Negative); SARS-CoV-2 RNA PCR Negative (Negative)
--- NOTE | 2023-01-28 18:39 | PM.IMHP ---
H&P: HPI History of Present Illness Date/Time: 01/28/23 18:39 Chief Complaint: Weakness Narrative: 83-year-old female with a past medical history CVA, hyperlipidemia, hypertension, GERD, type 2 diabetes mellitus, Graves disease and end-stage renal disease on hemodialysis since 2019 who presented to the ER from home in the company of family members due to generalized weakness. The patient reports that she has a been a becoming more more forgetful and she subsequently has skipped dialysis 3 times in a row. Her last hemodialysis session was on the . Her dialysis is managed by Dr. Fulton. The patient has not been getting up and getting dressed for the day. She is becoming more forgetful and does not realize that she has food in the house. Her daughter stated that she bought a jar of pickles for the patient and when she came back to check on her a few days later the patient had eaten the entire jar of pickles but had not touched any of the other food in the house. In patient denies any nausea vomiting or abdominal pain. She denies any shortness of breath or cough. However daughter disagrees with this and states that the patient has had a long-term cough for months. She is taking sugar free cough medicine. She reports that she still produces a good amount a urine a day. She reports that she pees all the time. She denies any dysuria or hematuria. Her daughter feels the patient's weight is stable. The patient reports he has been having some small amount of swelling in her ankles. She denies any other significant symptoms. However the daughter reports that the patient called her yesterday complaining of chest pain. She also reported having an episode of vomiting to the daughter yesterday. Although the patient is a poor historian she is alert oriented x3 at the time of my evaluation. She can even name the current president. Patient daughter reports that they did some sort of procedure on her AV fistula yesterday due to a lot of blood being in it. Patient's case was discussed with her daughter Hue with the patient's permission. Review of Systems Review of Systems: 12 systems were reviewed with pertinent positives and negatives per HPI. Except as documented in the HPI, all other systems were reviewed and are negative. [facility] Past Medical History Medical History (Updated 01/28/23 @ 18:49 by Rhiannon Valenzuela DO) Anemia Atherosclerotic heart disease of [place] coronary artery without angina pectoris Carotid artery disease Congestive heart failure Coronary artery disease Diastolic dysfunction End stage renal disease Essential (primary) hypertension Hypothyroidism, unspecified Obstructive sleep apnea Primary generalized (osteo)arthritis Proteinuria due to type 2 diabetes mellitus Renal osteodystrophy Screening mammogram, encounter for Type II diabetes mellitus with renal manifestations Vitamin D deficiency Surgical History Surgical History (Updated 01/28/23 @ 18:49 by Rhiannon Valenzuela DO) History of bunionectomy of left great toe History of right hip replacement Presence of left artificial knee joint Presence of right artificial knee joint Status post cataract extraction of both eyes with insertion of intraocular lens Status post creation of arteriovenous fistula Left upper arm Family History Family History Mother Diabetes mellitus Acute myocardial infarction Family history of diabetes mellitus in first degree relative Patient's mother is Hypertension Breast cancer Uterine cancer Sibling Family history of sarcoidosis Cerebrovascular accident Father , age 49 [place] Acute myocardial infarction Patient's mother is Hypertension Daughter Family history of lupus erythematosus Family history of arthritis Hypertension Social History Social History (Updated 01/28/23 @ 18:51 by Rhiannon Valenzuela DO) Social History: The p
[2023-01-28] MEDS: hydrALAZINE HCL 50 MG TABLET PO (18:48)
[2023-01-28] MEDS: hydrALAZINE HCL 25 MG TABLET PO (18:48)
[2023-01-28] MEDS: carvediloL 12.5 MG TABLET PO (20:48)
[2023-01-28 21:45] LABS: Glucose Point of Care 183 mg/dl (65-105)
[2023-01-29] VITALS (30 sets, daily range): BP systolic 156–218; BP diastolic 42–84; PULSE 57–72; RESP 14–18; TEMP 35.8–37.1; O2SAT 97–99
[2023-01-29 06:28] LABS: Basophils Percent Auto 0.4 % (0.2-1.2); Eosinophils Absolute Auto 0.1 K/mm3 (0-0.3); Eosinophils Percent Auto 2.2 % (0-4.4); Hematocrit 28.5 % (37.0-47.0); Hemoglobin 8.6 g/dL (12.0-15.0); Immature Granulocyte Absolute 0.02 K/mm3 (0.00-0.031); Immature Granulocyte Percent A 0.4 % (0-0.5); Lymphocytes Absolute Auto 0.88 K/mm3 (0.9-3.2); Lymphocytes Percent Auto 16.2 % (18.3-44.2); Mean Corpuscular HGB Conc 30.2 g/dl (32-36); Mean Corpuscular Hemoglobin 31.2 pg (26-34); Mean Corpuscular Volume 103.3 fl (80-100); Mean Platelet Volume 10.3 fl (7.4-10.4); Monocytes Absolute Auto 0.6 K/mm3 (0.1-0.6); Monocytes Percent Auto 10.3 % (2.6-8.5); Neutrophils Absolute Auto 3.8 K/mm3 (1.3-6.7); Neutrophils Percent Auto 70.5 % (45.5-73.1); Platelet Count Result 200 k/mm3 (150-375); Red Blood Count 2.76 M/mm3 (4.2-5.4); Red Cell Distribution Width 17.2 % (11.5-14.5); White Blood Count 5.4 K/mm3 (4.5-10.0)
[2023-01-29 06:32] LABS: Alanine Aminotransferase 43 U/L (6-35); Albumin Level 3.4 g/dL (3.5-5.1); Alkaline Phosphatase 87 U/L (38-126); Anion Gap 11 mmol/L (8-16); Aspartate Amino Transferase 33 U/L (14-36); Bilirubin,Total 0.6 mg/dL (0.2-1.3); Blood Urea Nitrogen 112 mg/dL (7-17); Calcium 8.4 mg/dL (8.4-10.2); Carbon Dioxide 21 mmol/L (22-30); Chloride 107 mmol/L (98-107); Estimated CRCL calculation 6 ml/min; Estimated Glomerular Filt Rate 6; Glucose 150 mg/dL (65-110); Potassium 5.4 mmol/L (3.4-5.0); Sodium 139 mmol/L (137-145)
[2023-01-29 07:03] LABS: Hepatitis B Surface Antigen Negative (Negative)
[2023-01-29 07:23] LABS: Hepatitis B Surface Anti Res Positive
[2023-01-29 07:40] LABS: Glucose Point of Care 133 mg/dl (65-105)
--- NOTE | 2023-01-29 07:57 | PC.NURSE ---
Patient to dialysis via bed.
[2023-01-29] MEDS: EPOETIN ALFA-EPBX 10,000 UNITS/ML VIAL 10000 UNITS IV PUSH (10:25)
--- NOTE | 2023-01-29 11:27 | PM.IMPN ---
Progress Note: A&P Assessment and Plan (1) End stage renal disease: Code(s): N18.6 - End stage renal disease Status: Chronic Assessment and Plan: 01/29/23: Patient missed 3 HD sessions in the past week, last HD session was on 01/21/2023 Potassium 5.4, BUN 112, creatinine 7.5, carbon dioxide 21 sodium 139 Nephrology following Patient will have HD today We will recheck labs in the morning (2) Memory loss: Code(s): R41.3 - Other amnesia Status: Acute Assessment and Plan: 01/29/23: Patient reports increased forgetfulness and has missed 3 days of HD. Family reports that she has not been getting dressed or been eating like she normally does. Will get case management involved for her outpatient needs. Patient may benefit from assisted living at this point. (3) Hyperkalemia: Code(s): E87.5 - Hyperkalemia Status: Acute Assessment and Plan: 01/29/23: Potassium level 5.4, secondary to ESRD and missed HD x3 days. Patient received 1 dose of Lokelma in the ER Patient will receive HD today We will get more labs in the morning Continue telemetry monitoring (4) Diabetes: Code(s): E11.9 - Type 2 diabetes mellitus without complications Status: Chronic Assessment and Plan: 01/29/23: BG ranging 133-183 Patient does not take anything at home for DM management Last Hgb A1C on 11/11/22 was 5.1 Will continue to monitor (5) Hypertension, uncontrolled: Code(s): I10 - Essential (primary) hypertension Status: Acute Assessment and Plan: 01/29/23: B/P ranging 209/76-214/74, this can be due to placement of blood pressure cuff. Currently on right lower arm. Patient restarted on home medications. (6) Gastroesophageal reflux disease: Code(s): K21.9 - Gastro-esophageal reflux disease without esophagitis Status: Acute Assessment and Plan: 01/29/23: Started Protonix today Time Spent With Patient Time with patient: Greater than 35 minutes Subjective Date/time seen: 01/29/23 11:27 Interval history: This is an 83 year old female who presented to the ER with generalized weakness. Patient has ESRD on HD since 2019 and has missed dialysis 3x in a row. Her last HD session was on January 21. She is followed by Dr. Fulton. According to the daughters, patient has become increasingly forgetful, not eating, and not performing simple ADLS at home. Patient may benefit from assisted living. Work up in the hospital included a chest x-ray which revealed small pleural effusions, cardiomegaly. Labs revealed white blood cell count 5.4, hemoglobin 8.6, hematocrit 28.5, sodium 139, potassium 5.4, carbon dioxide 21, BUN 112, creatinine 7.5, blood sugars ranging 133-183, last hemoglobin A1c performed on 11/11/2022 was 5.1, ALT 43. Respiratory panel negative. UA was performed which showed 3+ protein, trace leukocytes, 1+ bacteria. UC is pending. Nephrology was consulted. Orders placed for HD. On examination today patient is alert and oriented x4, lying in the bed. She is currently getting HD via AV fistula in left upper arm. She denies any fever, chills, nausea, vomiting, diarrhea, constipation, abdominal pain, chest pain, shortness a breath, headache, or vision changes. She also denies any sick contacts. Patient does state that she has been forgetful about going to her dialysis appointments. B/P are elevated ranging 209/76-214/74. This may be due to placement of the cuff as her blood pressure cuff is currently being read on her left lower arm. Her home medications have been restarted. She is afebrile and currently on room air. She denies any pain or discomfort at this time. She has no new complaints today. I discussed with her that we will get Case Management involved to assist with her outpatient needs. Patient has no new complaints today. We will recheck her labs in the morning and see if she will need further HD treatments before discharge. Re
[2023-01-29] MEDS: hydrALAZINE HCL 50 MG TABLET PO ×2 (11:36→16:25)
[2023-01-29] MEDS: carvediloL 12.5 MG TABLET PO ×2 (11:36→21:06)
[2023-01-29] MEDS: NIFEdipine 30 MG TAB.ER.24 60 MG PO (11:36)
[2023-01-29] MEDS: hydrALAZINE HCL 25 MG TABLET PO ×2 (11:36→16:25)
--- NOTE | 2023-01-29 12:22 | PC.NURSE ---
Patient back from dialysis via bed into 302.
--- NOTE | 2023-01-29 12:34 | P.PNNP_ITS ---
Progress Note: A&P Assessment and Plan (1) End stage renal disease: Code(s): N18.6 - End stage renal disease Status: Chronic Assessment and Plan: * HD finished. * resume M/W/F dialysis schedule next week * Volume status looks okay. * Potassium was a little high at 5.4. She was done on a 2 K bath. (2) Memory loss: Code(s): R41.3 - Other amnesia Status: Acute Assessment and Plan: * evidence of cognitive impairment and possibly early dementia * will likely need placement on discharge * PT/OT evaluation * Conversive. (3) Essential (primary) hypertension: Code(s): I10 - Essential (primary) hypertension Status: Chronic Assessment and Plan: * Systolic ranging between 190 and 210. * quite elevated even at baseline (and during her dialysis treatments) * given #2, unclear if she has been taking her medications regularly * She is on hydralazine and carvedilol both of which she received last evening and this morning. She is on nifedipine and just got her 1st dose of few hours ago. * Will add clonidine to take as needed for blood pressure greater than 170 and let the above take effect. She is also on metoprolol but since she is not on routine clonidine and the withdrawal issue is not a problem. Heart rate is in the 70s. (4) Anemia: Qualifiers: Anemia type: due to chronic kidney disease Chronic kidney disease stage: stage 4 (severe) Qualified Code(s): N18.4 - Chronic kidney disease, stage 4 (severe); D63.1 - Anemia in chronic kidney disease Code(s): D64.9 - Anemia, unspecified Status: Chronic Assessment and Plan: * low due to missed Mircera dosing with dialysis * Hemoglobin 8.6. (5) Diabetes: Code(s): E11.9 - Type 2 diabetes mellitus without complications Status: Chronic Assessment and Plan: * Management per hospitalist Subjective Date/time seen: 01/29/23 12:34 Interval history: Lilian is just finishing up dialysis. She tolerated it well. 3L was removed blood pressure did okay. Patient feels better. She is not short of breath Review of Systems Cardiovascular: Cardiovascular: Reports no additional cardiovascular comp laints Respiratory: Respiratory: Reports no additional respiratory complaints Gastrointestinal: Gastrointestinal: Reports no additional gastrointestinal complaints Genitourinary: Genitourinary: Reports no additional female genitourinary c omplaints Exam Narrative: WDWN in NAD skin no rash head ncat lungs clear cor reg no rub abd BS+ nontender and soft ext no edema. Objective Data Vital Signs Vital Signs: Vital Signs - 24 hr 01/28/23 12:39 01/28/23 13:31 01/28/23 15:05 Temperature 97.5 F L Pulse Rate 57 L 57 L 59 L Respiratory Rate 19 20 20 Blood Pressure 153/48 H 152/132 H 158/49 H Pulse Oximetry 100 100 98 Oxygen Delivery Room Air 01/28/23 14:01 01/28/23 16:32 01/28/23 17:20 Temperature 96.6 F L Pulse Rate 57 L 63 67 Respiratory Rate 25 H 17 18 Blood Pressure 152/69 H 187/52 H 174/45 H Pulse Oximetry 98 97 Oxygen Delivery 01/28/23 18:20 01/28/23 20:48 01/28/23 20:00 Temperature Pulse Rate 72 56 L Respiratory Rate
--- NOTE | 2023-01-29 12:34 | PM.PNNEP ---
Progress Note: A&P Assessment and Plan (1) End stage renal disease: Code(s): N18.6 - End stage renal disease Status: Chronic Assessment and Plan: HD finished. resume M/W/ dialysis schedule next week Volume status looks okay. Potassium was a little high at 5.4. She was done on a 2 K bath. (2) Memory loss: Code(s): R41.3 - Other amnesia Status: Acute Assessment and Plan: evidence of cognitive impairment and possibly early dementia will likely need placement on discharge PT/OT evaluation Conversive. (3) Essential (primary) hypertension: Code(s): I10 - Essential (primary) hypertension Status: Chronic Assessment and Plan: Systolic ranging between 190 and 210. quite elevated even at baseline (and during her dialysis treatments) given #2, unclear if she has been taking her medications regularly She is on hydralazine and carvedilol both of which she received last evening and this morning. She is on nifedipine and just got her 1st dose of few hours ago. Will add clonidine to take as needed for blood pressure greater than 170 and let the above take effect. She is also on metoprolol but since she is not on routine clonidine and the withdrawal issue is not a problem. Heart rate is in the 70s. (4) Anemia: Qualifiers: Anemia type: due to chronic kidney disease Chronic kidney disease stage: stage 4 (severe) Qualified Code(s): N18.4 - Chronic kidney disease, stage 4 (severe); D63.1 - Anemia in chronic kidney disease Code(s): D64.9 - Anemia, unspecified Status: Chronic Assessment and Plan: low due to missed Mircera dosing with dialysis Hemoglobin 8.6. (5) Diabetes: Code(s): E11.9 - Type 2 diabetes mellitus without complications Status: Chronic Assessment and Plan: Management per hospitalist Subjective Date/time seen: 01/29/23 12:34 Interval history: Lilian is just finishing up dialysis. She tolerated it well. 3L was removed blood pressure did okay. Patient feels better. She is not short of breath Review of Systems Cardiovascular: Cardiovascular: Reports no additional cardiovascular complaints Respiratory: Respiratory: Reports no additional respiratory complaints Gastrointestinal: Gastrointestinal: Reports no additional gastrointestinal complaints Genitourinary: Genitourinary: Reports no additional female genitourinary complaints Exam Narrative: WDWN in NAD skin no rash head ncat lungs clear cor reg no rub abd BS+ nontender and soft ext no edema. Objective Data Vital Signs Vital Signs: Vital Signs - 24 hr 01/28/23 12:39 01/28/23 13:31 01/28/23 15:05 Temperature 97.5 F L Pulse Rate 57 L 57 L 59 L Respiratory Rate 19 20 20 Blood Pressure 153/48 H 152/132 H 158/49 H Pulse Oximetry 100 100 98 Oxygen Delivery Room Air 01/28/23 14:01 01/28/23 16:32 01/28/23 17:20 Temperature 96.6 F L Pulse Rate 57 L 63 67 Respiratory Rate 25 H 17 18 Blood Pressure 152/69 H 187/52 H 174/45 H Pulse Oximetry 98 97 Oxygen Delivery 01/28/23 18:20 01/28/23 20:48 01/28/23 20:00 Temperature Pulse Rate 72 56 L Respiratory Rate Blood Pressure Pulse Oximetry Oxygen Delivery Room Air 01/28/23 21:35 01/29/23 00:00 01/29/23 04:00 Temperature 96.6 F L Pulse Rate 65 63 61 Respiratory Rate 16 Blood Pressure 186/54 H Pulse Oximetry 98 Oxygen Delivery 01/29/23 06:00 01/29/23 07:57 01/29/23 08:15 Temperature 97.5 F L 97.8 F Pulse Rate 61 61 60 Respiratory Rate 18 18 Blood Pressure 175/49 H 182/64 H 175/63 H Pulse Oximetry 99 Oxygen Delivery 01/29/23 08:30 01/29/23 08:45 01/29/23 09:00 Temperature Pulse Rate 61 61 61 Respiratory Rate Blood Pressure 190/75 H 190/75 H 199/68 H Pulse Oximetry Oxygen Delivery 01/29/23 09:15 01/29/23 09:30 01/29/23 09:45 Temperature Pulse Rate 71 68 68 Respiratory Rate
[2023-01-29] MEDS: cloNIDine HCL 0.1 MG TABLET PO (12:55)
[2023-01-29] MEDS: PANTOPRAZOLE 40 MG TABLET PO (12:55)
[2023-01-29 17:52] LABS: Glucose Point of Care 158 mg/dl (65-105)
[2023-01-29 23:17] LABS: Glucose Point of Care 129 mg/dl (65-105)
[2023-01-30] VITALS (10 sets, daily range): BP systolic 119–154; BP diastolic 43–60; PULSE 43–59; RESP 18–20; TEMP 36–36.5; O2SAT 97–99
[2023-01-30 07:28] LABS: Basophils Percent Auto 0.7 % (0.2-1.2); Eosinophils Absolute Auto 0.2 K/mm3 (0-0.3); Eosinophils Percent Auto 3.1 % (0-4.4); Hematocrit 28.5 % (37.0-47.0); Hemoglobin 8.7 g/dL (12.0-15.0); Immature Granulocyte Absolute 0.07 K/mm3 (0.00-0.031); Immature Granulocyte Percent A 1.3 % (0-0.5); Lymphocytes Absolute Auto 1.23 K/mm3 (0.9-3.2); Lymphocytes Percent Auto 22.1 % (18.3-44.2); Mean Corpuscular HGB Conc 30.5 g/dl (32-36); Mean Corpuscular Hemoglobin 30.6 pg (26-34); Mean Corpuscular Volume 100.4 fl (80-100); Mean Platelet Volume 10.5 fl (7.4-10.4); Monocytes Absolute Auto 0.7 K/mm3 (0.1-0.6); Monocytes Percent Auto 11.8 % (2.6-8.5); Neutrophils Absolute Auto 3.4 K/mm3 (1.3-6.7); Platelet Count Result 198 k/mm3 (150-375); Red Blood Count 2.84 M/mm3 (4.2-5.4); Red Cell Distribution Width 16.6 % (11.5-14.5); White Blood Count 5.6 K/mm3 (4.5-10.0)
[2023-01-30 07:47] LABS: Alanine Aminotransferase 43 U/L (6-35); Albumin Level 3.1 g/dL (3.5-5.1); Alkaline Phosphatase 72 U/L (38-126); Anion Gap 8 mmol/L (8-16); Aspartate Amino Transferase 33 U/L (14-36); Bilirubin,Total 0.7 mg/dL (0.2-1.3); Blood Urea Nitrogen 50 mg/dL (7-17); Calcium 8.5 mg/dL (8.4-10.2); Carbon Dioxide 28 mmol/L (22-30); Chloride 102 mmol/L (98-107); Estimated CRCL calculation 10 ml/min; Estimated Glomerular Filt Rate 12; Glucose 95 mg/dL (65-110); Phosphorus 4.3 mg/dL (2.5-4.5); Potassium 4.1 mmol/L (3.4-5.0); Sodium 138 mmol/L (137-145)
--- NOTE | 2023-01-30 07:53 | P.PNIM_ITS ---
Progress Note: A&P Assessment and Plan (1) End stage renal disease: Code(s): N18.6 - End stage renal disease Status: Chronic Assessment and Plan: 01/29/23: * Patient missed 3 HD sessions in the past week, last HD session was on 01/21/2023 * Potassium 5.4, BUN 112, creatinine 7.5, carbon dioxide 21 sodium 139 * Nephrology following * Patient will have HD today * We will recheck labs in the morning 01/30/23: * Had 3L removed with HD yesterday * Sodium 138 potassium 4.1, BUN 50, creatinine 4.4 * Nephrology following * Continue to trend labs * PT and OT to eval and treat, patient was a 2 assist to the chair. She may benefit from SNF prior to assisted living placement. * Case coordination following for outpatient needs, patient wishes to go to assisted living as she is not able to provide all her care needs. Case coordination updated. (2) Memory loss: Code(s): R41.3 - Other amnesia Status: Acute Assessment and Plan: 01/29/23: * Patient reports increased forgetfulness and has missed 3 days of HD. Family reports that she has not been getting dressed or been eating like she normally does. * Will get case management involved for her outpatient needs. Patient may benefit from assisted living at this point. 01/30/23: * Case coordination assessing for outpatient needs * PT and OT ordered (3) Hyperkalemia: Code(s): E87.5 - Hyperkalemia Status: Acute Assessment and Plan: 01/29/23: * Potassium level 5.4, secondary to ESRD and missed HD x3 days. * Patient received 1 dose of Lokelma in the ER * Patient will receive HD today * We will get more labs in the morning * Continue telemetry monitoring 01/30/23: * Potassium 4.1 today after HD * Continue to trend labs * Will discontinue telemetry monitoring (4) Diabetes: Code(s): E11.9 - Type 2 diabetes mellitus without complications Status: Chronic Assessment and Plan: 01/29/23: * BG ranging 133-183 * Patient does not take anything at home for DM management * Last Hgb A1C on 11/11/22 was 5.1 * Will continue to monitor 01/30/23: * Blood sugars ranging 95-129 * We will continue to trend (5) Hypertension, uncontrolled: Code(s): I10 - Essential (primary) hypertension Status: Acute Assessment and Plan: 01/29/23: * B/P ranging 209/76-214/74, this can be due to placement of blood pressure cuff. Currently on right lower arm. * Patient restarted on home medications. 01/30/23: * Blood pressure ranging 135/44 to 207/59 * No change to current treatment (6) Gastroesophageal reflux disease: Code(s): K21.9 - Gastro-esophageal reflux disease without esophagitis Status: Acute Assessment and Plan: 01/29/23: * Started Protonix today 01/30/23: * No change to current treatment plan Time Spent With Patient Time with patient: 25 - 35 minutes Subjective Date/time seen: 01/30/23 07:53 Interval history: Interval history: 01/29/23: This is an 83 year old female who presented to the ER with generalized weakness. Patient has ESRD on HD since 2019 and has missed dialysis 3x in a row. Her last HD session was on January 21. She is followed by Dr. Fulton. According to the daughters, patient has become increasingly forgetful, not eating, and not performing simple ADLS at home. Patient may benefit from assisted living. Work up in the hospital included a chest x-ray which revealed small pleural effusions, cardiomegaly. Labs revealed white blood ce
--- NOTE | 2023-01-30 07:53 | PM.IMPN ---
Progress Note: A&P Assessment and Plan (1) End stage renal disease: Code(s): N18.6 - End stage renal disease Status: Chronic Assessment and Plan: 01/29/23: Patient missed 3 HD sessions in the past week, last HD session was on 01/21/2023 Potassium 5.4, BUN 112, creatinine 7.5, carbon dioxide 21 sodium 139 Nephrology following Patient will have HD today We will recheck labs in the morning 01/30/23: Had 3L removed with HD yesterday Sodium 138 potassium 4.1, BUN 50, creatinine 4.4 Nephrology following Continue to trend labs PT and OT to eval and treat, patient was a 2 assist to the chair. She may benefit from SNF prior to assisted living placement. Case coordination following for outpatient needs, patient wishes to go to assisted living as she is not able to provide all her care needs. Case coordination updated. (2) Memory loss: Code(s): R41.3 - Other amnesia Status: Acute Assessment and Plan: 01/29/23: Patient reports increased forgetfulness and has missed 3 days of HD. Family reports that she has not been getting dressed or been eating like she normally does. Will get case management involved for her outpatient needs. Patient may benefit from assisted living at this point. 01/30/23: Case coordination assessing for outpatient needs PT and OT ordered (3) Hyperkalemia: Code(s): E87.5 - Hyperkalemia Status: Acute Assessment and Plan: 01/29/23: Potassium level 5.4, secondary to ESRD and missed HD x3 days. Patient received 1 dose of Lokelma in the ER Patient will receive HD today We will get more labs in the morning Continue telemetry monitoring 01/30/23: Potassium 4.1 today after HD Continue to trend labs Will discontinue telemetry monitoring (4) Diabetes: Code(s): E11.9 - Type 2 diabetes mellitus without complications Status: Chronic Assessment and Plan: 01/29/23: BG ranging 133-183 Patient does not take anything at home for DM management Last Hgb A1C on 11/11/22 was 5.1 Will continue to monitor 01/30/23: Blood sugars ranging 95-129 We will continue to trend (5) Hypertension, uncontrolled: Code(s): I10 - Essential (primary) hypertension Status: Acute Assessment and Plan: 01/29/23: B/P ranging 209/76-214/74, this can be due to placement of blood pressure cuff. Currently on right lower arm. Patient restarted on home medications. 01/30/23: Blood pressure ranging 135/44 to 207/59 No change to current treatment (6) Gastroesophageal reflux disease: Code(s): K21.9 - Gastro-esophageal reflux disease without esophagitis Status: Acute Assessment and Plan: 01/29/23: Started Protonix today 01/30/23: No change to current treatment plan Time Spent With Patient Time with patient: 25 - 35 minutes Subjective Date/time seen: 01/30/23 07:53 Interval history: Interval history: 01/29/23: This is an 83 year old female who presented to the ER with generalized weakness. Patient has ESRD on HD since 2019 and has missed dialysis 3x in a row. Her last HD session was on January 21. She is followed by Dr. Fulton. According to the daughters, patient has become increasingly forgetful, not eating, and not performing simple ADLS at home. Patient may benefit from assisted living. Work up in the hospital included a chest x-ray which revealed small pleural effusions, cardiomegaly. Labs revealed white blood cell count 5.4, hemoglobin 8.6, hematocrit 28.5, sodium 139, potassium 5.4, carbon dioxide 21, BUN 112, creatinine 7.5, blood sugars ranging 133-183, last hemoglobin A1c performed on 11/11/2022 was 5.1, ALT 43.? Respiratory panel negative.? UA was performed which showed 3+ protein, trace leukocytes, 1+ bacteria. UC is pending. Nephrology was consulted. Orders placed for HD. On examination today patient is alert and oriented x4, lying in the bed. She is currently getting HD via AV fistu
[2023-01-30] MEDS: carvediloL 12.5 MG TABLET PO (07:58)
[2023-01-30] MEDS: hydrALAZINE HCL 25 MG TABLET PO (07:59)
[2023-01-30] MEDS: PANTOPRAZOLE 40 MG TABLET PO (07:59)
[2023-01-30] MEDS: hydrALAZINE HCL 50 MG TABLET PO ×2 (07:59→17:37)
[2023-01-30] MEDS: NIFEdipine 30 MG TAB.ER.24 60 MG PO (07:59)
[2023-01-30 12:07] LABS: Glucose Point of Care 161 mg/dl (65-105)
--- NOTE | 2023-01-30 13:08 | P.PNNP_ITS ---
Progress Note: A&P Assessment and Plan (1) End stage renal disease: Code(s): N18.6 - End stage renal disease Status: Chronic Assessment and Plan: * HD finished. * resume M/W/F dialysis schedule next week * Volume status looks okay. * Potassium good at 4.1 today * CO2 fine as well. (2) Memory loss: Code(s): R41.3 - Other amnesia Status: Acute Assessment and Plan: * evidence of cognitive impairment and possibly early dementia * will likely need placement on discharge * PT/OT evaluation * Conversive. (3) Essential (primary) hypertension: Code(s): I10 - Essential (primary) hypertension Status: Chronic Assessment and Plan: * Systolic ranging between 119 ad 164 in the last 24 h * quite elevated even at baseline (and during her dialysis treatments) * given #2, unclear if she has been taking her medications regularly * She is on hydralazine and carvedilol and nifedipine and just got her 1st dose yesterday * on prn clonidine as well. (4) Anemia: Qualifiers: Anemia type: due to chronic kidney disease Chronic kidney disease stage: stage 4 (severe) Qualified Code(s): N18.4 - Chronic kidney disease, stage 4 (severe); D63.1 - Anemia in chronic kidney disease Code(s): D64.9 - Anemia, unspecified Status: Chronic Assessment and Plan: * low due to missed Mircera dosing with dialysis * Hemoglobin 8.6. (5) Diabetes: Code(s): E11.9 - Type 2 diabetes mellitus without complications Status: Chronic Assessment and Plan: * Management per hospitalist Subjective Date/time seen: 01/30/23 13:08 Interval history: alert. feels okay no sob or cp Exam Narrative: WDWN in NAD skin no rash head ncat lungs clear bilaterally cor reg no rub abd BS+ nontender and soft ext no edema or cyanosis Objective Data Vital Signs Vital Signs: Vital Signs - 24 hr 01/29/23 13:50 01/29/23 16:00 01/29/23 14:00 Temperature 97.1 F L Pulse Rate 66 66 Respiratory Rate 14 Blood Pressure 164/42 H Pulse Oximetry 98 Oxygen Delivery Room Air 01/29/23 21:06 01/29/23 20:00 01/29/23 20:55 Temperature 96.5 F L Pulse Rate 60 61 57 L Respiratory Rate 18 Blood Pressure 156/71 H Pulse Oximetry 97 Oxygen Delivery 01/30/23 00:00 01/30/23 04:00 01/30/23 05:25 Temperature 96.8 F L Pulse Rate 53 L 50 L 51 L Respiratory Rate 18 Blood Pressure 135/44 L Pulse Oximetry 98 Oxygen Delivery 01/30/23 07:58 01/30/23 08:00 01/30/23 09:30 Temperature Pulse Rate 56 L Respiratory Rate Blood Pressure Pulse Oximetry 98 Oxygen Delivery Room Air Room Air 01/30/23 13:07 Temperature Pulse Rate Respiratory Rate Blood Pressure 119/45 L Pulse Oximetry Oxygen Delivery Intake/Output Intake/Output: Intake & Output 01/27/23 01/28/23 01/29/23 01/30/23 23:59 23:59 23:59 23:59 Intake Total 240 340 410 Output Total 3000
--- NOTE | 2023-01-30 13:08 | PM.PNNEP ---
Progress Note: A&P Assessment and Plan (1) End stage renal disease: Code(s): N18.6 - End stage renal disease Status: Chronic Assessment and Plan: HD finished. resume M/W/ dialysis schedule next week Volume status looks okay. Potassium good at 4.1 today CO2 fine as well. (2) Memory loss: Code(s): R41.3 - Other amnesia Status: Acute Assessment and Plan: evidence of cognitive impairment and possibly early dementia will likely need placement on discharge PT/OT evaluation Conversive. (3) Essential (primary) hypertension: Code(s): I10 - Essential (primary) hypertension Status: Chronic Assessment and Plan: Systolic ranging between 119 ad 164 in the last 24 h quite elevated even at baseline (and during her dialysis treatments) given #2, unclear if she has been taking her medications regularly She is on hydralazine and carvedilol and nifedipine and just got her 1st dose yesterday on prn clonidine as well. (4) Anemia: Qualifiers: Anemia type: due to chronic kidney disease Chronic kidney disease stage: stage 4 (severe) Qualified Code(s): N18.4 - Chronic kidney disease, stage 4 (severe); D63.1 - Anemia in chronic kidney disease Code(s): D64.9 - Anemia, unspecified Status: Chronic Assessment and Plan: low due to missed Mircera dosing with dialysis Hemoglobin 8.6. (5) Diabetes: Code(s): E11.9 - Type 2 diabetes mellitus without complications Status: Chronic Assessment and Plan: Management per hospitalist Subjective Date/time seen: 01/30/23 13:08 Interval history: alert. feels okay no sob or cp Exam Narrative: WDWN in NAD skin no rash head ncat lungs clear bilaterally cor reg no rub abd BS+ nontender and soft ext no edema or cyanosis Objective Data Vital Signs Vital Signs: Vital Signs - 24 hr 01/29/23 13:50 01/29/23 16:00 01/29/23 14:00 Temperature 97.1 F L Pulse Rate 66 66 Respiratory Rate 14 Blood Pressure 164/42 H Pulse Oximetry 98 Oxygen Delivery Room Air 01/29/23 21:06 01/29/23 20:00 01/29/23 20:55 Temperature 96.5 F L Pulse Rate 60 61 57 L Respiratory Rate 18 Blood Pressure 156/71 H Pulse Oximetry 97 Oxygen Delivery 01/30/23 00:00 01/30/23 04:00 01/30/23 05:25 Temperature 96.8 F L Pulse Rate 53 L 50 L 51 L Respiratory Rate 18 Blood Pressure 135/44 L Pulse Oximetry 98 Oxygen Delivery 01/30/23 07:58 01/30/23 08:00 01/30/23 09:30 Temperature Pulse Rate 56 L Respiratory Rate Blood Pressure Pulse Oximetry 98 Oxygen Delivery Room Air Room Air 01/30/23 13:07 Temperature Pulse Rate Respiratory Rate Blood Pressure 119/45 L Pulse Oximetry Oxygen Delivery Intake/Output Intake/Output: Intake & Output 01/27/23 01/28/23 01/29/23 01/30/23 23:59 23:59 23:59 23:59 Intake Total 240 340 410 Output Total 3000 Balance 240 -2660 410 Meds/Results Medications: Active Medications Generic Name Dose Route Start Last Admin Trade Name Freq PRN Reason Stop Dose Admin Carvedilol 12.5 mg 01/28/23 21:00 01/30/23 07:58 Carvedilol 12.5 Mg Tablet PO 12.5 mg Q12HR EVAN Administration Clonidine HCl 0.1 mg 01/29/23 12:39 01/29/23 12:55 Clonidine Hcl 0.1 Mg Tablet PO 0.1 mg Q8HR PRN Administration systolic above 170 Hydralazine HCl 25 mg 01/28/23 18:40 01/30/23 07:59 Hydralazine Hcl 25 Mg Tablet PO 25 mg TID EVAN Administration Hydralazine HCl 50 mg 01/28/23 18:40 01/30/23 07:59 Hydralazine Hcl 50 Mg Tablet PO 50 mg TID EVAN Administration Nifedipine 60 mg 01/29/23 09:00 01/30/23 07:59 Nifedipine 30 Mg Tab.Er.24 PO 60 mg DAILY EVAN Administration Ondansetron HCl 4 mg 01/28/23 15:48 Ondansetron Inj 4 Mg/2 Ml Vial IV PUSH Q4H PRN Nausea Pantoprazole Sodium 40 mg 01/29/23 09:00 01/30/23 07:59 Pantopr
--- NOTE | 2023-01-30 14:16 | PC.NURSE ---
Cuca Couch [employer] notified of bp 119/45 and holding 1300 hydralazine
[2023-01-30 14:22] LABS: Glucose Point of Care 96 mg/dl (65-105)
--- NOTE | 2023-01-30 16:24 | PC.NURSE ---
During vital signs patients heart rate noted to be in 40's. Placed patient back on tele and heart rate sinus ia 44. Cuca Couch [employer] notified. Patient was asymptomatic and bp 130/60.
[2023-01-30 17:26] LABS: Glucose Point of Care 165 mg/dl (65-105)
[2023-01-30 21:00] LABS: Glucose Point of Care 140 mg/dl (65-105)
[2023-01-31] VITALS (25 sets, daily range): BP systolic 161–192; BP diastolic 38–82; PULSE 60–89; RESP 16–18; TEMP 35.7–37; O2SAT 98–99
[2023-01-31] MEDS: ACETAMINOPHEN 500 MG TABLET 1000 MG PO (06:46)
[2023-01-31 07:19] LABS: Basophils Percent Auto 0.5 % (0.2-1.2); Eosinophils Absolute Auto 0.2 K/mm3 (0-0.3); Eosinophils Percent Auto 2.9 % (0-4.4); Hematocrit 29.1 % (37.0-47.0); Hemoglobin 8.7 g/dL (12.0-15.0); Immature Granulocyte Absolute 0.08 K/mm3 (0.00-0.031); Immature Granulocyte Percent A 1.3 % (0-0.5); Lymphocytes Absolute Auto 1.41 K/mm3 (0.9-3.2); Lymphocytes Percent Auto 22.7 % (18.3-44.2); Mean Corpuscular HGB Conc 29.9 g/dl (32-36); Mean Corpuscular Hemoglobin 30.6 pg (26-34); Mean Corpuscular Volume 102.5 fl (80-100); Mean Platelet Volume 10.9 fl (7.4-10.4); Monocytes Absolute Auto 0.8 K/mm3 (0.1-0.6); Monocytes Percent Auto 12.2 % (2.6-8.5); Neutrophils Absolute Auto 3.8 K/mm3 (1.3-6.7); Neutrophils Percent Auto 60.4 % (45.5-73.1); Platelet Count Result 208 k/mm3 (150-375); Red Blood Count 2.84 M/mm3 (4.2-5.4); Red Cell Distribution Width 16.7 % (11.5-14.5); White Blood Count 6.2 K/mm3 (4.5-10.0)
[2023-01-31 07:29] LABS: Glucose Point of Care 94 mg/dl (65-105)
[2023-01-31 07:32] LABS: Alanine Aminotransferase 35 U/L (6-35); Albumin Level 3.3 g/dL (3.5-5.1); Alkaline Phosphatase 70 U/L (38-126); Anion Gap 10 mmol/L (8-16); Aspartate Amino Transferase 25 U/L (14-36); Bilirubin,Total 0.6 mg/dL (0.2-1.3); Blood Urea Nitrogen 60 mg/dL (7-17); Calcium 8.1 mg/dL (8.4-10.2); Carbon Dioxide 25 mmol/L (22-30); Chloride 100 mmol/L (98-107); Estimated CRCL calculation 9 ml/min; Estimated Glomerular Filt Rate 10; Glucose 84 mg/dL (65-110); Potassium 4.3 mmol/L (3.4-5.0); Sodium 135 mmol/L (137-145)
--- NOTE | 2023-01-31 08:06 | P.PNIM_ITS ---
Progress Note: A&P Assessment and Plan (1) End stage renal disease: Code(s): N18.6 - End stage renal disease Status: Chronic Assessment and Plan: 01/29/23: * Patient missed 3 HD sessions in the past week, last HD session was on 01/21/2023 * Potassium 5.4, BUN 112, creatinine 7.5, carbon dioxide 21 sodium 139 * Nephrology following * Patient will have HD today * We will recheck labs in the morning 01/30/23: * Had 3L removed with HD yesterday * Sodium 138 potassium 4.1, BUN 50, creatinine 4.4 * Nephrology following * Continue to trend labs * PT and OT to eval and treat, patient was a 2 assist to the chair. She may benefit from SNF prior to assisted living placement. * Case coordination following for outpatient needs, patient wishes to go to assisted living as she is not able to provide all her care needs. Case coordination updated. 01/31/23: * Patient had 3 L removed today with dialysis * Sodium 130, potassium 4.3, BUN 60, creatinine 0.2 * Nephrology following * Continue to work with PT and OT * Case management following for outpatient needs. (2) Memory loss: Code(s): R41.3 - Other amnesia Status: Acute Assessment and Plan: 01/29/23: * Patient reports increased forgetfulness and has missed 3 days of HD. Family reports that she has not been getting dressed or been eating like she normally does. * Will get case management involved for her outpatient needs. Patient may benefit from assisted living at this point. 01/30/23: * Case coordination assessing for outpatient needs * PT and OT ordered 01/31/23: * Currently alert and oriented x3 * Case coordination working on outpatient needs * continue PT and OT (3) Hyperkalemia: Code(s): E87.5 - Hyperkalemia Status: Acute Assessment and Plan: 01/29/23: * Potassium level 5.4, secondary to ESRD and missed HD x3 days. * Patient received 1 dose of Lokelma in the ER * Patient will receive HD today * We will get more labs in the morning * Continue telemetry monitoring 01/30/23: * Potassium 4.1 today after HD * Continue to trend labs * Will discontinue telemetry monitoring 01/31/23: * Potassium 4.3 * Continue to trend lab (4) Diabetes: Code(s): E11.9 - Type 2 diabetes mellitus without complications Status: Chronic Assessment and Plan: 01/29/23: * BG ranging 133-183 * Patient does not take anything at home for DM management * Last Hgb A1C on 11/11/22 was 5.1 * Will continue to monitor 01/30/23: * Blood sugars ranging 95-129 * We will continue to trend 01/31/23: * No change to current treatment plan (5) Hypertension, uncontrolled: Code(s): I10 - Essential (primary) hypertension Status: Acute Assessment and Plan: 01/29/23: * B/P ranging 209/76-214/74, this can be due to placement of blood pressure cuff. Currently on right lower arm. * Patient restarted on home medications. 01/30/23: * Blood pressure ranging 135/44 to 207/59 * No change to current treatment 01/31/23: * Decreased her hydralazine down to 50 mg as her blood pressure was ranging low normal yesterday, ? compliance with meds at home. * Blood pressures ranging 165/782- 189/71 today (6) Gastroesophageal reflux disease: Code(s): K21.9 - Gastro-esophageal reflux disease without esophagitis Status: Acute Assessment and Plan: 01/29/23: * Started Protonix today 01/30/23: * No change to current treatment plan Time Spent
--- NOTE | 2023-01-31 08:06 | PM.IMPN ---
Progress Note: A&P Assessment and Plan (1) End stage renal disease: Code(s): N18.6 - End stage renal disease Status: Chronic Assessment and Plan: 01/29/23: Patient missed 3 HD sessions in the past week, last HD session was on 01/21/2023 Potassium 5.4, BUN 112, creatinine 7.5, carbon dioxide 21 sodium 139 Nephrology following Patient will have HD today We will recheck labs in the morning 01/30/23: Had 3L removed with HD yesterday Sodium 138 potassium 4.1, BUN 50, creatinine 4.4 Nephrology following Continue to trend labs PT and OT to eval and treat, patient was a 2 assist to the chair. She may benefit from SNF prior to assisted living placement. Case coordination following for outpatient needs, patient wishes to go to assisted living as she is not able to provide all her care needs. Case coordination updated. 01/31/23: Patient had 3 L removed today with dialysis Sodium 130, potassium 4.3, BUN 60, creatinine 0.2 Nephrology following Continue to work with PT and OT Case management following for outpatient needs. (2) Memory loss: Code(s): R41.3 - Other amnesia Status: Acute Assessment and Plan: 01/29/23: Patient reports increased forgetfulness and has missed 3 days of HD. Family reports that she has not been getting dressed or been eating like she normally does. Will get case management involved for her outpatient needs. Patient may benefit from assisted living at this point. 01/30/23: Case coordination assessing for outpatient needs PT and OT ordered 01/31/23: Currently alert and oriented x3 Case coordination working on outpatient needs continue PT and OT (3) Hyperkalemia: Code(s): E87.5 - Hyperkalemia Status: Acute Assessment and Plan: 01/29/23: Potassium level 5.4, secondary to ESRD and missed HD x3 days. Patient received 1 dose of Lokelma in the ER Patient will receive HD today We will get more labs in the morning Continue telemetry monitoring 01/30/23: Potassium 4.1 today after HD Continue to trend labs Will discontinue telemetry monitoring 01/31/23: Potassium 4.3 Continue to trend lab (4) Diabetes: Code(s): E11.9 - Type 2 diabetes mellitus without complications Status: Chronic Assessment and Plan: 01/29/23: BG ranging 133-183 Patient does not take anything at home for DM management Last Hgb A1C on 11/11/22 was 5.1 Will continue to monitor 01/30/23: Blood sugars ranging 95-129 We will continue to trend 01/31/23: No change to current treatment plan (5) Hypertension, uncontrolled: Code(s): I10 - Essential (primary) hypertension Status: Acute Assessment and Plan: 01/29/23: B/P ranging 209/76-214/74, this can be due to placement of blood pressure cuff. Currently on right lower arm. Patient restarted on home medications. 01/30/23: Blood pressure ranging 135/44 to 207/59 No change to current treatment 01/31/23: Decreased her hydralazine down to 50 mg as her blood pressure was ranging low normal yesterday, ? compliance with meds at home. Blood pressures ranging 165/782- 189/71 today (6) Gastroesophageal reflux disease: Code(s): K21.9 - Gastro-esophageal reflux disease without esophagitis Status: Acute Assessment and Plan: 01/29/23: Started Protonix today 01/30/23: No change to current treatment plan Time Spent With Patient Time with patient: 25 - 35 minutes Subjective Date/time seen: 01/31/23 08:06 Interval history: Interval history: 01/29/23: This is an 83 year old female who presented to the ER with generalized weakness. Patient has ESRD on HD since 2019 and has missed dialysis 3x in a row. Her last HD session was on January 21. She is followed by Dr. Fulton. According to the daughters, patient has become increasingly forgetful, not eating, and not performing simple ADLS at home. Patient may benefit from assisted li
[2023-01-31] MEDS: ENOXAPARIN 40 MG/0.4 ML SYRINGE SUB-Q (08:23)
[2023-01-31 08:55] LABS: Hypochromasia 1+ (NORMAL); Platelet Estimate Adequate (Adequate); Schistocytes None Seen (NORMAL)
[2023-01-31] MEDS: NIFEdipine 30 MG TAB.ER.24 60 MG PO (09:49)
[2023-01-31] MEDS: PANTOPRAZOLE 40 MG TABLET PO (09:49)
[2023-01-31] MEDS: carvediloL 12.5 MG TABLET PO ×2 (09:49→20:39)
[2023-01-31] MEDS: hydrALAZINE HCL 50 MG TABLET PO ×3 (09:49→16:32)
--- NOTE | 2023-01-31 10:03 | PM.PNNEP ---
Progress Note: A&P Assessment and Plan (1) End stage renal disease: Code(s): N18.6 - End stage renal disease Status: Chronic Assessment and Plan: HD today conitnue M/W/F dialysis schedule while hospitalized follow electrolytes, volume status, and clearance (2) Memory loss: Code(s): R41.3 - Other amnesia Status: Acute Assessment and Plan: evidence of cognitive impairment and possibly early dementia to need placement on discharge PT/OT evaluation (3) Essential (primary) hypertension: Code(s): I10 - Essential (primary) hypertension Status: Chronic Assessment and Plan: quite elevated even at baseline (and during her outpatient dialysis treatments) given #2, unclear if she has been taking her medications regularly doing a bit better with readings during hospitalization follow trend of hemodynamics (4) Anemia: Qualifiers: Anemia type: due to chronic kidney disease Chronic kidney disease stage: stage 4 (severe) Qualified Code(s): N18.4 - Chronic kidney disease, stage 4 (severe); D63.1 - Anemia in chronic kidney disease Code(s): D64.9 - Anemia, unspecified Status: Chronic Assessment and Plan: low due to missed Mircera dosing with dialysis Epogen with HD here follow trend of H/H (5) Diabetes: Code(s): E11.9 - Type 2 diabetes mellitus without complications Status: Chronic Assessment and Plan: follow accu-cheks management per hospitalist Will continue to follow. Subjective Date/time seen: 01/31/23 10:03 Interval history: Follow-up for end stage renal disease on hemodialysis. Tolerating dialysis treatment at the time of my visit (seen on HD at 9:53AM); no apparent distress voiced; no issues/events overnight or earlier this morning; no other complaints to report. Exam Narrative: General: elderly but WD/WN female in NAD Heart: normal S1 and S2; no rub Lungs: clear to auscultation Abdomen: soft, nontender, nondistended, positive bowel sounds Extremities: no cyanosis or clubbing; no edema Skin: warm and dry Objective Data Vital Signs Vital Signs: Vital Signs Temp Pulse Resp BP Pulse Ox 01/31/23 10:00 70 188/65 H 01/31/23 09:49 70 01/31/23 09:40 65 192/82 H 11/20/23 09:20 64 183/72 H 01/31/23 09:00 65 171/70 H 01/31/23 08:40 64 165/78 H 01/31/23 08:09 98.1 F 65 16 165/82 H 01/31/23 08:20 61 161/64 H 01/31/23 04:58 96.9 F L 67 18 164/38 H 98 01/31/23 04:00 66 01/31/23 00:00 65 01/30/23 20:00 59 L 01/30/23 19:57 97.7 F 58 L 20 154/43 H 97 01/30/23 14:00 97.6 F 44 L 18 130/60 99 01/30/23 16:26 43 L 01/30/23 13:07 119/45 L Intake/Output Intake/Output: Intake & Output 01/28/23 01/29/23 01/30/23 01/31/23 23:59 23:59 23:59 23:59 Intake Total 840 582 0138 930 Output Total 3000 3000 Balance 240 -2660 1410 -2070 Meds/Results Medications: Active Medications Generic Name Dose Route Start Last Admin Trade Name Freq PRN Reason Stop Dose Admin Acetaminophen 650 mg 01/31/23 10:22 Acetaminophen 325 Mg Tablet PO Q4H PRN Headache Carvedilol 12.5 mg 01/28/23 21:00 01/31/23 09:49 Carvedilol 12.5 Mg Tablet PO 12.5 mg Q12HR EVAN Administration Clonidine HCl 0.1 mg 01/29/23 12:39 01/29/23 12:55 Clonidine Hcl 0.1 Mg Tablet PO 0.1 mg Q8HR PRN Administration systolic above 170 Enoxaparin Sodium 40 mg 01/31/23 09:00 01/31/23 08:23 Enoxaparin 40 Mg/0.4 Ml Syringe SUB-Q 40 mg MoWeFr@0900 [facility] Administration Epoetin Manish-epbx 10,000 units 01/31/23 20:27 01/31/23 11:06 Epoetin Manish-Epbx 10,000 Units/Ml Vial IV PUSH 01/31/23 20:28 10,000 units ONCE ONE Administration Hydralazine HCl 50 mg 01/28/23 18:40 01/31/23 09:49 Hydralazine Hcl 50 Mg Tablet PO 50 mg TID EVAN Administration Albumin H
--- NOTE | 2023-01-31 10:03 | P.PNNP_ITS ---
Progress Note: A&P Assessment and Plan (1) End stage renal disease: Code(s): N18.6 - End stage renal disease Status: Chronic Assessment and Plan: * HD today * conitnue M/W/F dialysis schedule while hospitalized * follow electrolytes, volume status, and clearance (2) Memory loss: Code(s): R41.3 - Other amnesia Status: Acute Assessment and Plan: * evidence of cognitive impairment and possibly early dementia * to need placement on discharge * PT/OT evaluation (3) Essential (primary) hypertension: Code(s): I10 - Essential (primary) hypertension Status: Chronic Assessment and Plan: * quite elevated even at baseline (and during her outpatient dialysis treatments) * given #2, unclear if she has been taking her medications regularly * doing a bit better with readings during hospitalization * follow trend of hemodynamics (4) Anemia: Qualifiers: Anemia type: due to chronic kidney disease Chronic kidney disease stage: stage 4 (severe) Qualified Code(s): N18.4 - Chronic kidney disease, stage 4 (severe); D63.1 - Anemia in chronic kidney disease Code(s): D64.9 - Anemia, unspecified Status: Chronic Assessment and Plan: * low due to missed Mircera dosing with dialysis * Epogen with HD here * follow trend of H/H (5) Diabetes: Code(s): E11.9 - Type 2 diabetes mellitus without complications Status: Chronic Assessment and Plan: * follow accu-cheks * management per hospitalist Will continue to follow. Subjective Date/time seen: 01/31/23 10:03 Interval history: Follow-up for end stage renal disease on hemodialysis. Tolerating dialysis treatment at the time of my visit (seen on HD at 9:53AM); no apparent distress voiced; no issues/events overnight or earlier this morning; no other complaints to report. Exam Narrative: General: elderly but WD/WN female in NAD Heart: normal S1 and S2; no rub Lungs: clear to auscultation Abdomen: soft, nontender, nondistended, positive bowel sounds Extremities: no cyanosis or clubbing; no edema Skin: warm and dry Objective Data Vital Signs Vital Signs: Vital Signs Temp Pulse Resp BP Pulse Ox 01/31/23 10:00 70 188/65 H 01/31/23 09:49 70 01/31/23 09:40 65 192/82 H 01/31/23 09:20 64 183/72 H 01/31/23 09:00 65 171/70 H 01/31/23 08:40 64 165/78 H 01/31/23 08:09 98.1 F 65 16 165/82 H 01/31/23 08:20 61 161/64 H 01/31/23 04:58 96.9 F L 67 18 164/38 H 98 01/31/23 04:00 66 01/31/23 00:00 65 01/30/23 20:00 59 L 01/30/23 19:57 97.7 F 58 L 20 154/43 H 97 01/30/23 14:00 97.6 F 44 L 18 130/60 99 01/30/23 16:26 43 L 01/30/23 13:07 119/45 L Intake/Output Intake/Output: Intake & Output 01/28/23 01/29/23 01/30/23 01/31/23 23:59 23:59 23:59 23:59 Intake Total 619 058 8787 930 Output Total 3000 3000 Balance 240 -2660 1410 -2070 Meds/Results Medications: Active Medications Generic Name Dose Route Start Last Admin Trade Name Freq PRN Reason Stop Dose Admin
[2023-01-31] MEDS: EPOETIN ALFA-EPBX 10,000 UNITS/ML VIAL 10000 UNITS IV PUSH (11:06)
[2023-01-31] MEDS: SODIUM CHLORIDE 0.9% IV 1,000 ML 999 ML IV CONT (11:06)
--- NOTE | 2023-01-31 11:34 | PCPTNOTE ---
The patient treatment was not able to be completed due to patient in dialysis. Will plan to continue treatment per plan of care.
[2023-01-31 11:35] LABS: Glucose Point of Care 108 mg/dl (65-105)
[2023-01-31] MEDS: cloNIDine HCL 0.1 MG TABLET PO (15:04)
[2023-01-31 17:34] LABS: Glucose Point of Care 130 mg/dl (65-105)
[2023-02-01] VITALS (14 sets, daily range): BP systolic 127–180; BP diastolic 40–60; PULSE 50–64; RESP 14–20; TEMP 35.8–36.2; O2SAT 100
[2023-02-01 03:47] LABS: Glucose Point of Care 148 mg/dl (65-105)
[2023-02-01] MEDS: ACETAMINOPHEN 325 MG TABLET 650 MG PO (05:20)
[2023-02-01] MEDS: cloNIDine HCL 0.1 MG TABLET PO (05:20)
[2023-02-01 06:36] LABS: Basophils Percent Auto 0.5 % (0.2-1.2); Eosinophils Absolute Auto 0.2 K/mm3 (0-0.3); Eosinophils Percent Auto 2.7 % (0-4.4); Hematocrit 28.2 % (37.0-47.0); Hemoglobin 8.7 g/dL (12.0-15.0); Immature Granulocyte Absolute 0.04 K/mm3 (0.00-0.031); Immature Granulocyte Percent A 0.7 % (0-0.5); Lymphocytes Absolute Auto 1.03 K/mm3 (0.9-3.2); Lymphocytes Percent Auto 18.5 % (18.3-44.2); Mean Corpuscular HGB Conc 30.9 g/dl (32-36); Mean Corpuscular Hemoglobin 31.2 pg (26-34); Mean Corpuscular Volume 101.1 fl (80-100); Mean Platelet Volume 10.5 fl (7.4-10.4); Monocytes Absolute Auto 0.7 K/mm3 (0.1-0.6); Monocytes Percent Auto 13.1 % (2.6-8.5); Neutrophils Absolute Auto 3.6 K/mm3 (1.3-6.7); Neutrophils Percent Auto 64.5 % (45.5-73.1); Nucleated Red Blood Cells Perc 0.4 % (0.0-0.2); Platelet Count Result 199 k/mm3 (150-375); Red Blood Count 2.79 M/mm3 (4.2-5.4); Red Cell Distribution Width 16.4 % (11.5-14.5); White Blood Count 5.6 K/mm3 (4.5-10.0)
[2023-02-01 06:54] LABS: Alanine Aminotransferase 24 U/L (6-35); Albumin Level 3.1 g/dL (3.5-5.1); Alkaline Phosphatase 84 U/L (38-126); Anion Gap 10 mmol/L (8-16); Aspartate Amino Transferase 22 U/L (14-36); Bilirubin,Total 0.5 mg/dL (0.2-1.3); Blood Urea Nitrogen 39 mg/dL (7-17); Calcium 8.1 mg/dL (8.4-10.2); Carbon Dioxide 26 mmol/L (22-30); Chloride 96 mmol/L (98-107); Estimated CRCL calculation 13 ml/min; Estimated Glomerular Filt Rate 16; Glucose 114 mg/dL (65-110); Potassium 3.8 mmol/L (3.4-5.0); Sodium 132 mmol/L (137-145)
[2023-02-01 07:30] LABS: Glucose Point of Care 93 mg/dl (65-105)
[2023-02-01] MEDS: hydrALAZINE HCL 50 MG TABLET PO ×2 (09:05→17:28)
[2023-02-01] MEDS: NIFEdipine 30 MG TAB.ER.24 60 MG PO (09:05)
[2023-02-01] MEDS: carvediloL 12.5 MG TABLET PO ×2 (09:05→21:06)
[2023-02-01] MEDS: PANTOPRAZOLE 40 MG TABLET PO (09:05)
--- NOTE | 2023-02-01 10:31 | PM.PNNEP ---
Progress Note: A&P Assessment and Plan (1) End stage renal disease: Code(s): N18.6 - End stage renal disease Status: Chronic Assessment and Plan: HD tomorrow continue M/W/F dialysis schedule while hospitalized follow electrolytes, volume status, and clearance (2) Memory loss: Code(s): R41.3 - Other amnesia Status: Acute Assessment and Plan: evidence of cognitive impairment and possibly early dementia to need placement on discharge PT/OT as tolerated (3) Essential (primary) hypertension: Code(s): I10 - Essential (primary) hypertension Status: Chronic Assessment and Plan: quite elevated even at baseline (and during her outpatient dialysis treatments) given #2, unclear if she had been taking her medications regularly doing a bit better by readings during hospitalization follow trend of hemodynamics (4) Anemia: Qualifiers: Anemia type: due to chronic kidney disease Chronic kidney disease stage: stage 4 (severe) Qualified Code(s): N18.4 - Chronic kidney disease, stage 4 (severe); D63.1 - Anemia in chronic kidney disease Code(s): D64.9 - Anemia, unspecified Status: Chronic Assessment and Plan: low due to missed Mircera dosing with dialysis Epogen with HD here follow trend of H/H (5) Diabetes: Code(s): E11.9 - Type 2 diabetes mellitus without complications Status: Chronic Assessment and Plan: follow accu-cheks management per hospitalist Will continue to follow. Subjective Date/time seen: 02/01/23 10:31 Interval history: Follow-up for end stage renal disease on hemodialysis. Tolerated dialysis yesterday without any issues or problems; no apparent distress noted at this time; no issues/events overnight or earlier this morning. Exam Narrative: General: elderly but WD/WN female in NAD Heart: normal S1 and S2; no rub Lungs: clear to auscultation Abdomen: soft, nontender, nondistended, positive bowel sounds Extremities: no cyanosis or clubbing; no edema Skin: warm and intact Objective Data Vital Signs Vital Signs: Vital Signs Temp Pulse Resp BP Pulse Ox O2 Del Method 02/01/23 09:05 Room Air 02/01/23 09:05 60 02/01/23 09:03 97 F L 60 14 154/50 H 100 02/01/23 06:43 158/50 H 02/01/23 05:10 96.7 F L 61 20 180/50 H 100 02/01/23 05:22 180/60 H 02/01/23 04:00 61 02/01/23 00:00 63 01/31/23 20:45 97.1 F L 61 18 164/58 H 98 01/31/23 20:39 60 01/31/23 20:39 61 01/31/23 16:00 89 01/31/23 14:00 97.4 F L 67 16 173/49 H 99 Intake/Output Intake/Output: Intake & Output 01/29/23 01/30/23 01/31/23 02/01/23 23:59 23:59 23:59 23:59 Intake Total 340 1410 1170 858 Output Total 3000 3000 Balance -2660 1410 -1830 858 Meds/Results Medications: Active Medications Generic Name Dose Route Start Last Admin Trade Name Freq PRN Reason Stop Dose Admin Acetaminophen 650 mg 01/31/23 10:22 02/01/23 05:20 Acetaminophen 325 Mg Tablet PO 650 mg Q4H PRN Administration Headache Carvedilol 12.5 mg 01/28/23 21:00 02/01/23 09:05 Carvedilol 12.5 Mg Tablet PO 12.5 mg Q12HR EVAN Administration Clonidine HCl 0.1 mg 01/29/23 12:39 02/01/23 05:20 Clonidine Hcl 0.1 Mg Tablet PO 0.1 mg Q8HR PRN Administration systolic above 170 Enoxaparin Sodium 40 mg 01/31/23 09:00 01/31/23 08:23 Enoxaparin 40 Mg/0.4 Ml Syringe SUB-Q 40 mg MoWeFr@0900 EVNA Administration Hydralazine HCl 50 mg 01/28/23 18:40 02/01/23 12:36 Hydralazine Hcl 50 Mg Tablet PO Not Given TID EVAN Albumin Human 50 mls @ 999 mls/hr 01/31/23 06:27 Albutein IVPB 03/02/23 06:26 Q10M PRN HYPOTENSION Nifedipine 60 mg 01/29/23 09:00 02/01/23 09:05 Nifedipine 30 Mg Tab.Er.24 PO 60 mg DAILY EVAN Administration Ondansetron HCl 4 mg 01/28/23
[2023-02-01 11:23] LABS: Glucose Point of Care 122 mg/dl (65-105)
[2023-02-01 16:17] LABS: SARS-CoV-2 RNA PCR Negative (Negative)
[2023-02-01 16:25] LABS: Glucose Point of Care 160 mg/dl (65-105)
--- NOTE | 2023-02-01 16:34 | P.PNIM_ITS ---
Progress Note: A&P Assessment and Plan (1) End stage renal disease: Code(s): N18.6 - End stage renal disease Status: Chronic Assessment and Plan: 01/29/23: * Patient missed 3 HD sessions in the past week, last HD session was on 01/21/2023 * Potassium 5.4, BUN 112, creatinine 7.5, carbon dioxide 21 sodium 139 * Nephrology following * Patient will have HD today * We will recheck labs in the morning 01/30/23: * Had 3L removed with HD yesterday * Sodium 138 potassium 4.1, BUN 50, creatinine 4.4 * Nephrology following * Continue to trend labs * PT and OT to eval and treat, patient was a 2 assist to the chair. She may benefit from SNF prior to assisted living placement. * Case coordination following for outpatient needs, patient wishes to go to assisted living as she is not able to provide all her care needs. Case coordination updated. 01/31/23: * Patient had 3 L removed today with dialysis * Sodium 130, potassium 4.3, BUN 60, creatinine 0.2 * Nephrology following * Continue to work with PT and OT * Case management following for outpatient needs. 02/01/23: * BUN 39, creatinine 3.40, K+ 3.8, Na+ 132 * Nephrology following * Plan for HD tomorrow and then discharge * Patient has been approved for rehab at [facility] in [place], Case management following (2) Memory loss: Code(s): R41.3 - Other amnesia Status: Acute Assessment and Plan: 01/29/23: * Patient reports increased forgetfulness and has missed 3 days of HD. Family reports that she has not been getting dressed or been eating like she normally does. * Will get case management involved for her outpatient needs. Patient may benefit from assisted living at this point. 01/30/23: * Case coordination assessing for outpatient needs * PT and OT ordered 01/31/23: * Currently alert and oriented x3 * Case coordination working on outpatient needs * continue PT and OT 02/01/23: * Continue PT and OT * Patient has been accepted with insurance auth for [facility] in [place]. After HD tomorrow she can be discharged to facility (3) Hyperkalemia: Code(s): E87.5 - Hyperkalemia Status: Acute Assessment and Plan: 01/29/23: * Potassium level 5.4, secondary to ESRD and missed HD x3 days. * Patient received 1 dose of Lokelma in the ER * Patient will receive HD today * We will get more labs in the morning * Continue telemetry monitoring 01/30/23: * Potassium 4.1 today after HD * Continue to trend labs * Will discontinue telemetry monitoring 01/31/23: * Potassium 4.3 * Continue to trend lab 02/01/23: * K+ 3.8 * Continue to trend labs (4) Diabetes: Code(s): E11.9 - Type 2 diabetes mellitus without complications Status: Chronic Assessment and Plan: 01/29/23: * BG ranging 133-183 * Patient does not take anything at home for DM management * Last Hgb A1C on 11/11/22 was 5.1 * Will continue to monitor 01/30/23: * Blood sugars ranging 95-129 * We will continue to trend 01/31/23: * No change to current treatment plan (5) Hypertension, uncontrolled: Code(s): I10 - Essential (primary) hypertension Status: Acute Assessment and Plan: 01/29/23: * B/P ranging 209/76-214/74, this can be due to placement of blood pressure cuff. Currently on right lower arm. * Patient restarted on home medications. 01/30/23: * Blood pressure ranging 135/44 to 207/59 * No change to current treatment 01/31
--- NOTE | 2023-02-01 16:34 | PM.IMPN ---
Progress Note: A&P Assessment and Plan (1) End stage renal disease: Code(s): N18.6 - End stage renal disease Status: Chronic Assessment and Plan: 01/29/23: Patient missed 3 HD sessions in the past week, last HD session was on 01/21/2023 Potassium 5.4, BUN 112, creatinine 7.5, carbon dioxide 21 sodium 139 Nephrology following Patient will have HD today We will recheck labs in the morning 01/30/23: Had 3L removed with HD yesterday Sodium 138 potassium 4.1, BUN 50, creatinine 4.4 Nephrology following Continue to trend labs PT and OT to eval and treat, patient was a 2 assist to the chair. She may benefit from SNF prior to assisted living placement. Case coordination following for outpatient needs, patient wishes to go to assisted living as she is not able to provide all her care needs. Case coordination updated. 01/31/23: Patient had 3 L removed today with dialysis Sodium 130, potassium 4.3, BUN 60, creatinine 0.2 Nephrology following Continue to work with PT and OT Case management following for outpatient needs. 02/01/23: BUN 39, creatinine 3.40, K+ 3.8, Na+ 132 Nephrology following Plan for HD tomorrow and then discharge Patient has been approved for rehab at [facility] in [place], Case management following (2) Memory loss: Code(s): R41.3 - Other amnesia Status: Acute Assessment and Plan: 01/29/23: Patient reports increased forgetfulness and has missed 3 days of HD. Family reports that she has not been getting dressed or been eating like she normally does. Will get case management involved for her outpatient needs. Patient may benefit from assisted living at this point. 01/30/23: Case coordination assessing for outpatient needs PT and OT ordered 01/31/23: Currently alert and oriented x3 Case coordination working on outpatient needs continue PT and OT 02/01/23: Continue PT and OT Patient has been accepted with insurance auth for [facility] in [place]. After HD tomorrow she can be discharged to facility (3) Hyperkalemia: Code(s): E87.5 - Hyperkalemia Status: Acute Assessment and Plan: 01/29/23: Potassium level 5.4, secondary to ESRD and missed HD x3 days. Patient received 1 dose of Lokelma in the ER Patient will receive HD today We will get more labs in the morning Continue telemetry monitoring 01/30/23: Potassium 4.1 today after HD Continue to trend labs Will discontinue telemetry monitoring 01/31/23: Potassium 4.3 Continue to trend lab 02/01/23: K+ 3.8 Continue to trend labs (4) Diabetes: Code(s): E11.9 - Type 2 diabetes mellitus without complications Status: Chronic Assessment and Plan: 01/29/23: BG ranging 133-183 Patient does not take anything at home for DM management Last Hgb A1C on 11/11/22 was 5.1 Will continue to monitor 01/30/23: Blood sugars ranging 95-129 We will continue to trend 01/31/23: No change to current treatment plan (5) Hypertension, uncontrolled: Code(s): I10 - Essential (primary) hypertension Status: Acute Assessment and Plan: 01/29/23: B/P ranging 209/76-214/74, this can be due to placement of blood pressure cuff. Currently on right lower arm. Patient restarted on home medications. 01/30/23: Blood pressure ranging 135/44 to 207/59 No change to current treatment 01/31/23: Decreased her hydralazine down to 50 mg as her blood pressure was ranging low normal yesterday, ? compliance with meds at home. Blood pressures ranging 165/782- 189/71 today 02/01/23: Blood pressures 127/40-140/82 no change to current treatment plan (6) Gastroesophageal reflux disease: Code(s): K21.9 - Gastro-esophageal reflux disease without esophagitis Status: Acute Assessment and Plan: 01/29/23: Started Protonix today 01/30/23: No change to current treatment plan Time Spent With Patient Time with p
[2023-02-01 20:06] LABS: Glucose Point of Care 104 mg/dl (65-105)
[2023-02-02] VITALS (21 sets, daily range): BP systolic 135–168; BP diastolic 47–109; PULSE 51–62; RESP 16–18; TEMP 35.7–37.1; O2SAT 100
[2023-02-02 06:59] LABS: Hematocrit 27.8 % (37.0-47.0); Hemoglobin 8.4 g/dL (12.0-15.0); Mean Corpuscular HGB Conc 30.2 g/dl (32-36); Mean Corpuscular Hemoglobin 30.8 pg (26-34); Mean Corpuscular Volume 101.8 fl (80-100); Mean Platelet Volume 10.3 fl (7.4-10.4); Platelet Count Result 216 k/mm3 (150-375); Red Blood Count 2.73 M/mm3 (4.2-5.4); Red Cell Distribution Width 16.8 % (11.5-14.5); White Blood Count 5.6 K/mm3 (4.5-10.0)
[2023-02-02 07:14] LABS: Alanine Aminotransferase 21 U/L (6-35); Alkaline Phosphatase 55 U/L (38-126); Anion Gap 7 mmol/L (8-16); Aspartate Amino Transferase 18 U/L (14-36); Bilirubin,Total 0.5 mg/dL (0.2-1.3); Blood Urea Nitrogen 47 mg/dL (7-17); Carbon Dioxide 29 mmol/L (22-30); Chloride 97 mmol/L (98-107); Estimated CRCL calculation 10 ml/min; Estimated Glomerular Filt Rate 11; Glucose 82 mg/dL (65-110); Potassium 3.9 mmol/L (3.4-5.0); Sodium 133 mmol/L (137-145)
[2023-02-02 08:02] LABS: Glucose Point of Care 73 mg/dl (65-105)
[2023-02-02] MEDS: EPOETIN ALFA-EPBX 10,000 UNITS/ML VIAL 10000 UNITS IV PUSH (10:27)
--- NOTE | 2023-02-02 10:30 | PM.PNNEP ---
Progress Note: A&P Assessment and Plan (1) End stage renal disease: Code(s): N18.6 - End stage renal disease Status: Chronic Assessment and Plan: HD today continue M/W/F dialysis schedule while hospitalized follow electrolytes, volume status, and clearance (2) Memory loss: Code(s): R41.3 - Other amnesia Status: Acute Assessment and Plan: evidence of cognitive impairment and possibly early dementia planning placement on discharge PT/OT as tolerated (3) Essential (primary) hypertension: Code(s): I10 - Essential (primary) hypertension Status: Chronic Assessment and Plan: quite elevated even at baseline (and during her outpatient dialysis treatments) given #2, unclear if she had been taking her medications regularly doing a bit better by readings during hospitalization follow trend of hemodynamics (4) Anemia: Qualifiers: Anemia type: due to chronic kidney disease Chronic kidney disease stage: stage 4 (severe) Qualified Code(s): N18.4 - Chronic kidney disease, stage 4 (severe); D63.1 - Anemia in chronic kidney disease Code(s): D64.9 - Anemia, unspecified Status: Chronic Assessment and Plan: low due to missed Mircera dosing with dialysis Epogen with HD here follow trend of H/H (5) Diabetes: Code(s): E11.9 - Type 2 diabetes mellitus without complications Status: Chronic Assessment and Plan: follow accu-cheks management per hospitalist Will continue to follow. Subjective Date/time seen: 02/02/23 10:30 Interval history: Follow-up for end stage renal disease on hemodialysis. Tolerating dialysis treatment at the time of my visit (seen on HD at 10:20AM); no new issues or concerns voiced at this time; no apparent distress; feels reasonably well. Exam Narrative: General: elderly but WD/WN female in NAD Heart: normal S1 and S2; no rub Lungs: clear to auscultation Abdomen: soft, nontender, nondistended, positive bowel sounds Extremities: no cyanosis or clubbing; no edema Skin: no rash or nodules Objective Data Vital Signs Vital Signs: Vital Signs Temp Pulse Resp BP Pulse Ox 02/02/23 10:30 51 L 135/66 02/02/23 10:15 55 L 157/58 H 02/02/23 10:00 55 L 157/60 H 02/02/23 09:45 56 L 155/62 H 02/02/23 09:30 57 L 168/109 H 02/02/23 09:15 56 L 155/54 H 02/02/23 09:02 57 L 150/58 H 02/02/23 08:45 54 L 158/69 H 02/02/23 08:30 54 L 158/67 H 02/02/23 08:15 55 L 147/62 H 02/02/23 07:59 98.1 F 56 L 16 149/55 H 02/02/23 06:15 97.6 F 61 18 153/54 H 100 02/01/23 19:45 96.5 F L 59 L 20 158/47 H 100 02/01/23 21:06 64 02/01/23 17:27 62 14 159/53 H 100 02/01/23 12:00 50 L 02/01/23 14:00 97.1 F L 55 L 14 140/52 L 100 02/01/23 12:34 50 L 14 127/40 L 100 Intake/Output Intake/Output: Intake & Output 01/30/23 01/31/23 02/01/23 02/02/23 23:59 23:59 23:59 23:59 Intake Total 1410 1170 1348 870 Output Total 3000 Balance 1410 -1830 1348 870 Meds/Results Medications: Active Medications Generic Name Dose Route Start Last Admin Trade Name Freq PRN Reason Stop Dose Admin Acetaminophen 650 mg 01/31/23 10:22 02/01/23 05:20 Acetaminophen 325 Mg Tablet PO 650 mg Q4H PRN Administration Headache Carvedilol 12.5 mg 01/28/23 21:00 02/01/23 21:06 Carvedilol 12.5 Mg Tablet PO 12.5 mg Q12HR EVAN Administration Clonidine HCl 0.1 mg 01/29/23 12:39 02/01/23 05:20 Clonidine Hcl 0.1 Mg Tablet PO 0.1 mg Q8HR PRN Administration systolic above 170 Enoxaparin Sodium 40 mg 01/31/23 09:00 01/31/23 08:23 Enoxaparin 40 Mg/0.4 Ml Syringe SUB-Q 40 mg [id number] EVAN Administration Epoetin Manish-epbx 10,000 units 02/02/23 20:46 02/02/23 10:27 Epoetin Manish-Epbx 10,000 Units/Ml Vial IV PUSH 02/02/23 20:47 10,000 units ON
--- NOTE | 2023-02-02 11:18 | PCPTNOTE ---
The patient treatment was not able to be completed due to patient out of room and in dialysis. Will plan to continue treatment per plan of care.
[2023-02-02 11:35] LABS: Glucose Point of Care 142 mg/dl (65-105)
[2023-02-02] MEDS: NIFEdipine 30 MG TAB.ER.24 60 MG PO (13:00)
[2023-02-02] MEDS: carvediloL 12.5 MG TABLET PO (13:01)
[2023-02-02] MEDS: PANTOPRAZOLE 40 MG TABLET PO (13:01)
[2023-02-02] MEDS: hydrALAZINE HCL 50 MG TABLET PO (13:01)
--- NOTE | 2023-02-02 13:01 | PM.DS ---
DS: Admitting Diagnosis Discharge Date 02/02/23 Admitting Diagnosis Weakness, end-stage renal disease DS: Discharge Diagnosis Discharge Diagnosis (1) End stage renal disease: Code(s): N18.6 - End stage renal disease Status: Chronic (2) Memory loss: Code(s): R41.3 - Other amnesia Status: Acute (3) Hyperkalemia: Code(s): E87.5 - Hyperkalemia Status: Acute (4) Diabetes: Code(s): E11.9 - Type 2 diabetes mellitus without complications Status: Chronic (5) Hypertension, uncontrolled: Code(s): I10 - Essential (primary) hypertension Status: Acute (6) Gastroesophageal reflux disease: Code(s): K21.9 - Gastro-esophageal reflux disease without esophagitis Status: Acute DS: Summary Hospital Course Hospital Course: this is an 83-year-old female with past medical history of CVA, hyperlipidemia, hypertension, GERD, diabetes, year season end-stage renal disease on hemodialysis since 2019 to present to the ED due to generalized weakness. patient's daughter accompanied her to the ED and she stated that patient was having chest pain the day prior to presentation. Chest x-ray revealing small pleural effusions and cardiomegaly. Urine culture negative for infection. Patient had missed her dialysis sessions the week prior to presentation. Nephrology consulted. Patient was restarted on her dialysis schedule of Tuesday. Patient started feeling better after getting her back on track with her dialysis. Plan to discharge patient back to her facility . Time Spent with Patient Time attestation: Total time spent providing and/or coordinating discharge services: Exam Narrative: GENERAL: Comfortable, no acute distress HENMT: moist mucous membranes EYES: EOM intact b/l NECK: no lymphadenopathy RESPIRATORY: clear to auscultation CARDIO: RRR GI: soft, nontender, bowel sounds present SKIN: no rashes EXTREMITIES: no edema, redness or tenderness DS: Data Data Completed and Pending Labs on day of discharge: Labs from last 24 hours 02/02/23 02/02/23 02/02/23 11:31 07:59 06:14 WBC 5.6 RBC 2.73 L Hgb 8.4 L Hct 27.8 L MCV 101.8 H MCH 30.8 MCHC 30.2 L RDW 16.8 H Plt Count 216 MPV 10.3 Sodium 133 L Potassium 3.9 Chloride 97 L Carbon Dioxide 29 Anion Gap 7 L BUN 47 H Creatinine 4.60 H Estim Creat Clear Calc 10 Estimated GFR 11 L Glucose 82 POC Capillary Glucose 142 H 73 Calcium 8.0 L Total Bilirubin 0.5 AST 18 ALT 21 Alkaline Phosphatase 55 Total Protein 6.0 L Albumin 3.0 L SARS-CoV-2 RNA (RT-PCR) 02/01/23 02/01/23 02/01/23 19:50 16:07 15:36 WBC RBC Hgb Hct MCV MCH MCHC RDW Plt Count MPV Sodium Potassium Chloride Carbon Dioxide Anion Gap BUN Creatinine Estim Creat Clear Calc Estimated GFR Glucose POC Capillary Glucose 104 160 H Calcium Total Bilirubin AST ALT Alkaline Phosphatase Total Protein Albumin SARS-CoV-2 RNA (RT-PCR) Negative Discharge Plan Discharge Attending physician on discharge: Crystal aBum Consulting providers: Sheryl Fulton Discharging Clinician: Cuca Couch Anticipated Discharge Date/Time: 02/01/23 09:51 Patient Disposition: SNF Activity: as tolerated Diet: as tolerated Discharge Instructions: Discharge disposition: Take medications as prescribed Monitor blood pressures Avoid social areas, you wear a mask when in social settings Encouraged to continue with yearly vaccinations Return to the emergency department if he developed sudden shortness of breath, chest pain, nausea, vomiting, upset stomach or intractable diarrhea Return to the emergency department if you develop fever greater than 100.4 Follow-up with the primary care physician within 1-2 weeks Thank you for choosing
[2023-02-02] MEDS: ENOXAPARIN 40 MG/0.4 ML SYRINGE SUB-Q (13:05)
== END 2023-02-02 16:00 ==
LOC: ANHED 14:24 → ANH3MEDSUR 17:24
PROVIDERS: Emergency Medicine; Internal Medicine; Internal Medicine Nephrology; Nurse Practitioner Acute Care; Admitting Provider Internal Medicine; Emergency Provider General Practice; PCP Nurse Practitioner Family; Visit Provider Student in an Organized Health Care Education/Training Program
DX: I13.0 Hypertensive heart and chronic kidney disease with heart failure and stage 1 through stage 4 chronic kidney disease, or unspecified chronic kidney disease (principal); I50.30 Unspecified diastolic (congestive) heart failure; E11.22 Type 2 diabetes mellitus with diabetic chronic kidney disease; D63.1 Anemia in chronic kidney disease; N18.6 End stage renal disease; Z99.2 Dependence on renal dialysis; E87.5 Hyperkalemia; Z91.158 Patient's noncompliance with renal dialysis for other reason; R41.3 Other amnesia; I25.10 Atherosclerotic heart disease of native coronary artery without angina pectoris; Z20.822 Contact with and (suspected) exposure to COVID-19; K21.9 Gastro-esophageal reflux disease without esophagitis; E78.5 Hyperlipidemia, unspecified; E05.00 Thyrotoxicosis with diffuse goiter without thyrotoxic crisis or storm; J90 Pleural effusion, not elsewhere classified; R05.9 Cough, unspecified; R94.31 Abnormal electrocardiogram [ECG] [EKG]; E03.9 Hypothyroidism, unspecified; G47.33 Obstructive sleep apnea (adult) (pediatric); Z87.891 Personal history of nicotine dependence; Z79.899 Other long term (current) drug therapy; Z86.73 Personal history of transient ischemic attack (TIA), and cerebral infarction without residual deficits; Z83.3 Family history of diabetes mellitus; Z82.49 Family history of ischemic heart disease and other diseases of the circulatory system
CPT/HCPCS: 36415; 71046; 80053; 81001; 82948; 84100; 84443; 85025; 85027; 86706; 87086; 87088; 87340; 87635; 87637; 93005; 96372; 96374; 96375; 96376; 97110; 97161; 97165; 97530; 97535; 99285; A9270; G0257; G0378; J1644; J1650; J7030; Q5105

== ENCOUNTER 2023-02-23 23:54 | Observation (INO) | payer MEDICARE, SELFPAY ==
--- NOTE | ~2023-02-23 | XR_ITS ---
Clinical Indication: Chest pain AP and lateral views of the chest: Comparison: 01/28/2023 Findings: There is hazy left perihilar airspace disease. No pleural effusion or pneumothorax.. Cardi omediastinal silhouette is within normal limits. Bones and soft tissues are unremarkable. Impression: Hazy left perihilar airspace disease. Correlate for mild central pulmonary edema or infection. Reviewed, dictated and finalized at location . [employer] Impression: Hazy left perihilar airspace disease. Correlate for mild central pulmonary macey a or infection.
[2023-02-24] VITALS (59 sets, daily range): BP systolic 148–190; BP diastolic 53–108; PULSE 71–100; RESP 15–25; TEMP 36.2–36.4; O2SAT 92–100
--- NOTE | 2023-02-24 00:02 | ECG_ITS ---
Measurements Intervals [place] Rate: 75 P: 83 VA: 182 QRS: -47 QRSD: 122 T: 91 QT: 429 QTc: 479 Interpretive Statements SINUS RHYTHM POSSIBLE LEFT ATRIAL ENLARGEMENT [-0.1mV P WAVE IN V1/V2] LEFT ANTERIOR FASCICULAR BLOCK [QRS AXIS <= -45, QR IN I, RS IN II] LEFT VENTRICULAR HYPERTROPHY AND ST-T CHANGE [VOLTAGE CRITERIA PLUS ST/T ABNORMALITY] ABNORMAL ECG COMPARED TO ECG 01/28/2023 13:01:11 SINUS RHYTHM NOW PRESENT LEFT ANTERIOR FASCICULAR BLOCK NOW PRESENT ST (T WAVE) DEVIATION NOW PRESENT Electronically Signed On 02-24-2023 14:00:23 MULTIGRAPHER by Tiburcio Plunkett M.D.
[2023-02-24 01:14] LABS: Basophils Absolute Auto 0.1 K/mm3 (0.0-0.1); Basophils Percent Auto 0.5 % (0.2-1.2); Eosinophils Absolute Auto 0.2 K/mm3 (0-0.3); Eosinophils Percent Auto 1.7 % (0-4.4); Hematocrit 29.8 % (37.0-47.0); Hemoglobin 9.3 g/dL (12.0-15.0); Immature Granulocyte Absolute 0.06 K/mm3 (0.00-0.031); Immature Granulocyte Percent A 0.6 % (0-0.5); Lymphocytes Absolute Auto 0.66 K/mm3 (0.9-3.2); Lymphocytes Percent Auto 6.8 % (18.3-44.2); Mean Corpuscular HGB Conc 31.2 g/dl (32-36); Mean Corpuscular Hemoglobin 31.3 pg (26-34); Mean Corpuscular Volume 100.3 fl (80-100); Mean Platelet Volume 9.4 fl (7.4-10.4); Monocytes Absolute Auto 0.9 K/mm3 (0.1-0.6); Monocytes Percent Auto 8.9 % (2.6-8.5); Neutrophils Absolute Auto 7.9 K/mm3 (1.3-6.7); Neutrophils Percent Auto 81.5 % (45.5-73.1); Platelet Count Result 254 k/mm3 (150-375); Red Blood Count 2.97 M/mm3 (4.2-5.4); Red Cell Distribution Width 14.8 % (11.5-14.5); White Blood Count 9.7 K/mm3 (4.5-10.0)
--- NOTE | 2023-02-24 01:15 | ED.GENADULT ---
HPI - General Adult General Chief complaint: Chest Pain Stated complaint: CHEST PAIN Time Seen by Provider: 02/24/23 00:57 History of Present Illness HPI narrative: the patient is a 83-year-old female that presents to emergency department with chief complaint of chest pain. Patient reports she has history of end-stage renal disease on dialysis his dialysis Tuesday patient reports that the place where she is currently staying at did not arrange transport for her to go to dialysis and reported that she started having pain in her chest this evening the patient also reports that she has been having generalized weakness it has not been able to walk since the beginning of this year the patient reports that the pain is doing much better in her chest now Related Data Home Medications Medication Instructions Recorded Confirmed carvedilol 12.5 mg tablet (Coreg) 12.5 mg PO Q12HR 10/14/22 01/28/23 hydralazine 25 mg tablet 25 mg PO TID 10/14/22 01/28/23 hydralazine 50 mg tablet 50 mg PO TID 10/14/22 01/28/23 Allergies Allergy/AdvReac Type Severity Reaction Status Date / Time benazepril Allergy Severe Swelling Verified 01/28/23 17:23 of Lip/Tongue/Throat lisinopril Allergy Severe Anaphylaxis Verified 01/28/23 17:23 Review of Systems Review of Systems: A 10 system review of systems was completed on the patient and is negative except for what is stated in the HPI. Nursing and ancillary documentation was reviewed. [facility] Past Medical History Medical History Anemia Atherosclerotic heart disease of [place] coronary artery without angina pectoris Carotid artery disease Congestive heart failure Coronary artery disease Diastolic dysfunction End stage renal disease Essential (primary) hypertension Hypothyroidism, unspecified Obstructive sleep apnea Primary generalized (osteo)arthritis Proteinuria due to type 2 diabetes mellitus Renal osteodystrophy Screening mammogram, encounter for Type II diabetes mellitus with renal manifestations Vitamin D deficiency Surgical History Surgical History History of bunionectomy of left great toe History of right hip replacement Presence of left artificial knee joint Presence of right artificial knee joint Status post cataract extraction of both eyes with insertion of intraocular lens Status post creation of arteriovenous fistula Left upper arm Family History Family History Mother Diabetes mellitus Acute myocardial infarction Family history of diabetes mellitus in first degree relative Patient's mother is Hypertension Breast cancer Uterine cancer Sibling Family history of sarcoidosis Cerebrovascular accident Father , age 49 [place] Acute myocardial infarction Patient's mother is Hypertension Daughter Family history of lupus erythematosus Family history of arthritis Hypertension Social History Social History Social History: The patient has 9 children. 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 She is . She used to smoke many years ago. She smoked between 1-2 packs per cigarettes per day for 15 years prior to quitting she used to drink alcohol on occasion but has not done so in racing years. She denies illicit substance use. She dominates her daughter who lives in [place] to be the individual who would make decisions for her if she is unable. Code status: Full code (she states she would not want to be on a ventilator long-term) Smoking packs per day: 1 Smoking cigarettes per day: 20.0 Years smoked: 15 Smoking pack-years: 15.00 Smoking status: Former smoker Tobacco type: cigarettes Second hand tobacco smoke exposure:
[2023-02-24 01:25] LABS: Alanine Aminotransferase 14 U/L (6-35); Albumin Level 3.8 g/dL (3.5-5.1); Alkaline Phosphatase 126 U/L (38-126); Anion Gap 12 mmol/L (8-16); Aspartate Amino Transferase 30 U/L (14-36); Bilirubin,Total 0.5 mg/dL (0.2-1.3); Blood Urea Nitrogen 60 mg/dL (7-17); Calcium 9.2 mg/dL (8.4-10.2); Carbon Dioxide 20 mmol/L (22-30); Chloride 103 mmol/L (98-107); Estimated CRCL calculation 9 ml/min; Estimated Glomerular Filt Rate 10; Glucose 141 mg/dL (65-110); Lipase 160 U/L (23-300); Sodium 135 mmol/L (137-145)
[2023-02-24 01:32] LABS: Prothrombin Time 13.8 Seconds (11.1-14.7)
[2023-02-24 01:33] LABS: Partial Thromboplastin Time 37.9 SECONDS (22.3-36.8)
[2023-02-24 01:37] LABS: Troponin I < 0.012 ng/mL (0.000-0.034)
[2023-02-24] MEDS: ASPIRIN 81 MG CHEWABLE TABLET 324 MG PO (02:56)
--- NOTE | 2023-02-24 03:30 | PC.NURSE ---
Attempted to draw 3 hour troponin twice, phlebotomy called to attempt.
--- NOTE | 2023-02-24 03:33 | PM.IMHP ---
H&P: HPI History of Present Illness Date/Time: 02/24/23 03:33 Chief Complaint: Chest Pain, dry cough, SOB Narrative: An 83-year-old female that presents to emergency department with chief complaint of chest pain that started 2 days ago, intermittent, no radiation, no diaphoresis, palpitation however with associated cough and shortness of breath.? Patient reports she has history of end-stage renal disease on dialysis his dialysis Tuesday patient reports that the place where she is currently staying at did not arrange transport for her to go to dialysis and reported that she started having pain in her chest this evening the patient also reports that she has been having generalized weakness it has not been able to walk since the beginning of this year the patient reports that the pain is doing much better in her chest now. Patient was evaluated in the ED and found to be fluid overloaded and will be needing dialysis, I was consulted to admit this patient for further evaluation Review of Systems Review of Systems: All systems reviewed & are unremarkable except as noted in HPI and below PMFSH Past Medical History Medical History Anemia Atherosclerotic heart disease of [place] coronary artery without angina pectoris Carotid artery disease Congestive heart failure Coronary artery disease Diastolic dysfunction End stage renal disease Essential (primary) hypertension Hypothyroidism, unspecified Obstructive sleep apnea Primary generalized (osteo)arthritis Proteinuria due to type 2 diabetes mellitus Renal osteodystrophy Screening mammogram, encounter for Type II diabetes mellitus with renal manifestations Vitamin D deficiency Surgical History Surgical History History of bunionectomy of left great toe History of right hip replacement Presence of left artificial knee joint Presence of right artificial knee joint Status post cataract extraction of both eyes with insertion of intraocular lens Status post creation of arteriovenous fistula Left upper arm Family History Family History Mother Diabetes mellitus Acute myocardial infarction Family history of diabetes mellitus in first degree relative Patient's mother is Hypertension Breast cancer Uterine cancer Sibling Family history of sarcoidosis Cerebrovascular accident Father , age 49 [place] Acute myocardial infarction Patient's mother is Hypertension Daughter Family history of lupus erythematosus Family history of arthritis Hypertension Social History Social History Social History: The patient has 9 children. 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 She is . She used to smoke many years ago. She smoked between 1-2 packs per cigarettes per day for 15 years prior to quitting she used to drink alcohol on occasion but has not done so in racing years. She denies illicit substance use. She dominates her daughter who lives in [place] to be the individual who would make decisions for her if she is unable. Code status: Full code (she states she would not want to be on a ventilator long-term) Smoking packs per day: 1 Smoking cigarettes per day: 20.0 Years smoked: 15 Smoking pack-years: 15.00 Smoking status: Former smoker Tobacco type: cigarettes Second hand tobacco smoke exposure: No Additional smoking assessment comments: 40 years ago Alcohol intake: never Substance use: never Substance use type: does not use Lack of Transportation: No Lack of Food: Never True Current Housing: I Have Housing Concerned About Future Housing: No Difficulty Paying Gas/Electric Bills: No Difficulty Paying for Meds: No Currently Une
[2023-02-24 04:03] LABS: Troponin I < 0.012 ng/mL (0.000-0.034)
[2023-02-24 04:31] LABS: Influenza A QL RT-PCR Negative (Negative); Influenza B QL RT-PCR Negative (Negative); RSV RNA, RT-PCR Negative (Negative); SARS-CoV-2 RNA PCR Negative (Negative)
[2023-02-24 07:09] LABS: Troponin I < 0.012 ng/mL (0.000-0.034)
--- NOTE | 2023-02-24 10:45 | ADMGEN ---
This patient, Lilian Mandel, was admitted to [facility] Surg Room 304-01. Patient/family oriented to hospital policies and general routines including ID bracelet, bed and alarms, visiting hours, pain management, procedures, bathroom and other care routines, personal items, smoking policy, room service/diet, and visiting hours. Information on how to activate the Rapid Response Team has been discussed. Patient/Family are encouraged to report perceived risks to care and to ask questions if they do not understand what they are told or what they should do.
[2023-02-24] MEDS: hydrALAZINE HCL 20 MG/ML VIAL 10 MG IV PUSH (11:58)
--- NOTE | 2023-02-24 13:50 | PM.CNNEP ---
Assessment and Plan Assessment and plan (1) End stage renal disease: Code(s): N18.6 - End stage renal disease Status: Chronic Assessment and Plan: HD tomorrow continue M/W/F dialysis schedule during hospital stay follow electrolytes, volume status, and clearance (2) Fluid overload: Code(s): E87.70 - Fluid overload, unspecified Status: Acute Assessment and Plan: precipitated by missed dialysis treatment fluid removal with HD to attain euvolemia follow respiratory status (3) Essential (primary) hypertension: Code(s): I10 - Essential (primary) hypertension Status: Chronic Assessment and Plan: elevated at this time quite elevated even at baseline (and during her dialysis treatments) resume home medications and adjust as needed (4) Anemia: Qualifiers: Anemia type: due to chronic kidney disease Chronic kidney disease stage: stage 4 (severe) Qualified Code(s): N18.4 - Chronic kidney disease, stage 4 (severe); D63.1 - Anemia in chronic kidney disease Code(s): D64.9 - Anemia, unspecified Status: Chronic Assessment and Plan: due to ESRD Epogen with HD follow trend of H/H (5) Diabetes: Code(s): E11.9 - Type 2 diabetes mellitus without complications Status: Chronic Assessment and Plan: reported history on no medications follow sugars intermittently I will continue fall the patient with you while she remains hospitalized and make further recommendations as needed. Thank you for allowing me to participate in the care this patient. History of Present Illness Reason for Consult Consult date: 02/24/23 Reason for consult: end stage renal disease Chief Complaint Chief complaint: chest pain,fluid overload,ersd History of Present Illness Narrative: The patient is an 83-year-old female with a past medical history as outlined below who presented to [facility] Emergency room with complaints of chest pain and shortness of breath. Both of the symptoms started about two days ago and were intermittent in nature. With regard to her chest pain, she had no associated radiation or diaphoresis. Her shortness of breath was also associated with some cough. Other associated symptoms include generalized weakness and difficulty ambulating. Given these symptoms, her nursing facility called the EMS and she was transported to the emergency room for further assessment. Workup and evaluation in the emergency room demonstrated the patient to be hemodynamically stable if not hypertensive on presentation to the emergency room. By the time of her arrival to the ER, her chest pain symptoms seem to have resolved. Her routine blood test demonstrated labs consistent with her known history of end-stage renal disease and imaging studies demonstrated evidence of mild volume overload. On further questioning, the patient reports that her nursing facility was having some difficulty transporting her to dialysis so she may have missed a treatment. Given her constellation of symptoms on presentation and her need for renal replacement therapy / dialysis in the context of volume overload, she was admitted in the hospital for further evaluation therapy. Since her admission, her symptoms of chest pain and shortness of breath appeared resolved or right least minimal in nature at this time. No other acute issues or events overnight or earlier this morning are noted. Renal consultation was requested due to her history of end-stage renal disease. The patient is quite familiar to me as I take care of her outpatient dialysis needs. She normally dialyzes on a Tuesday, Tuesday, Tuesday dialysis schedule at [facility] dialysis under my care. From a dialysis perspective, she usually does reasonably well with relative stability in her volume status although her blood pressure is still somewhat a retic in nature but this was the case
[2023-02-24] MEDS: hydrALAZINE HCL 25 MG TABLET PO ×2 (15:35→21:12)
[2023-02-24] MEDS: hydrALAZINE HCL 50 MG TABLET PO ×2 (15:36→21:12)
[2023-02-24] MEDS: LORazepam (*CRX) 0.5 MG TABLET 0.25 MG PO (17:33)
[2023-02-24] MEDS: carvediloL 12.5 MG TABLET PO (21:12)
[2023-02-25] VITALS (27 sets, daily range): BP systolic 170–204; BP diastolic 57–91; PULSE 76–90; RESP 14–20; TEMP 36.6–37.3; O2SAT 93–95
[2023-02-25 06:09] LABS: Basophils Percent Auto 0.1 % (0.2-1.2); Hematocrit 31.2 % (37.0-47.0); Hemoglobin 9.5 g/dL (12.0-15.0); Immature Granulocyte Absolute 0.06 K/mm3 (0.00-0.031); Immature Granulocyte Percent A 0.7 % (0-0.5); Lymphocytes Absolute Auto 0.62 K/mm3 (0.9-3.2); Lymphocytes Percent Auto 7.2 % (18.3-44.2); Mean Corpuscular HGB Conc 30.4 g/dl (32-36); Mean Corpuscular Hemoglobin 31.1 pg (26-34); Mean Corpuscular Volume 102.3 fl (80-100); Mean Platelet Volume 9.7 fl (7.4-10.4); Monocytes Absolute Auto 0.4 K/mm3 (0.1-0.6); Monocytes Percent Auto 4.2 % (2.6-8.5); Neutrophils Absolute Auto 7.6 K/mm3 (1.3-6.7); Neutrophils Percent Auto 87.8 % (45.5-73.1); Platelet Count Result 249 k/mm3 (150-375); Red Blood Count 3.05 M/mm3 (4.2-5.4); Red Cell Distribution Width 15.2 % (11.5-14.5); White Blood Count 8.6 K/mm3 (4.5-10.0)
[2023-02-25] MEDS: hydrALAZINE HCL 25 MG TABLET PO ×3 (06:19→21:55)
[2023-02-25] MEDS: hydrALAZINE HCL 50 MG TABLET PO ×3 (06:19→21:54)
[2023-02-25 06:25] LABS: Anion Gap 13 mmol/L (8-16); Blood Urea Nitrogen 77 mg/dL (7-17); Carbon Dioxide 18 mmol/L (22-30); Chloride 103 mmol/L (98-107); Estimated CRCL calculation 7 ml/min; Estimated Glomerular Filt Rate 8; Glucose 144 mg/dL (65-110); Sodium 134 mmol/L (137-145)
[2023-02-25 06:55] LABS: Hepatitis B Surface Antigen Negative (Negative)
[2023-02-25 07:14] LABS: Hepatitis B Surface Anti Res Positive
[2023-02-25] MEDS: HEPARIN SODIUM 1,000 UNITS/ML VIAL 2000 UNITS IV PUSH (08:57)
[2023-02-25] MEDS: HEPARIN SODIUM 1,000 UNITS/ML VIAL 1000 UNITS IV PUSH ×3 (09:00→11:01)
--- NOTE | 2023-02-25 10:20 | PM.PNNEP ---
Progress Note: A&P Assessment and Plan (1) End stage renal disease: Code(s): N18.6 - End stage renal disease Status: Chronic Assessment and Plan: HD today continue M/W/F dialysis schedule during hospital stay follow electrolytes, volume status, and clearance (2) Fluid overload: Code(s): E87.70 - Fluid overload, unspecified Status: Acute Assessment and Plan: precipitated by missed dialysis treatments fluid removal with HD to attain euvolemia follow respiratory status (3) Essential (primary) hypertension: Code(s): I10 - Essential (primary) hypertension Status: Chronic Assessment and Plan: elevated on admision quite elevated even at baseline (and during her dialysis treatments) resume home medications and adjust as needed (4) Anemia: Qualifiers: Anemia type: due to chronic kidney disease Chronic kidney disease stage: stage 4 (severe) Qualified Code(s): N18.4 - Chronic kidney disease, stage 4 (severe); D63.1 - Anemia in chronic kidney disease Code(s): D64.9 - Anemia, unspecified Status: Chronic Assessment and Plan: due to ESRD Epogen with HD follow trend of H/H (5) Diabetes: Code(s): E11.9 - Type 2 diabetes mellitus without complications Status: Chronic Assessment and Plan: reported history on no medications follow sugars intermittently Will continue to follow. Subjective Date/time seen: 02/25/23 10:20 Interval history: Follow-up for end stage renal disease on hemodialysis. Tolerating hemodialysis treatment at the time of my visit (seen on HD at 10:10AM); no apparent distress noted; no issues/events overnight or earlier this morning. Exam Narrative: General: elderly but WD/WN female in NAD Heart: normal S1 and S2; no rub Lungs: decreased at bases Abdomen: soft, nontender, nondistended, positive bowel sounds Extremities: no cyanosis or clubbing; no edema Skin: warm and dry Objective Data Vital Signs Vital Signs: Vital Signs Temp Pulse Resp BP Pulse Ox O2 Del Method 02/25/23 10:15 86 185/91 H 02/25/23 10:00 83 192/89 H 02/25/23 09:45 82 184/85 H 02/25/23 09:30 81 184/88 H 02/25/23 09:15 80 186/84 H 02/25/23 11:15 88 191/88 H 12/15/23 10:45 85 195/87 H 02/25/23 09:00 78 177/79 H 02/25/23 08:50 97.8 F 79 20 174/87 H 02/25/23 05:19 98.2 F 82 16 180/62 H 95 02/25/23 04:00 79 02/25/23 00:00 76 02/24/23 20:00 93 02/24/23 20:32 97.5 F L 96 16 187/77 H 92 Intake/Output Intake/Output: Intake & Output 02/22/23 02/23/23 02/24/23 02/25/23 23:59 23:59 23:59 23:59 Intake Total 240 360 Output Total 3000 Balance 240 -2640 Meds/Results Medications: Active Medications Generic Name Dose Route Start Last Admin Trade Name Freq PRN Reason Stop Dose Admin Acetaminophen 650 mg 02/24/23 14:55 Acetaminophen 325 Mg Tablet PO Q6H PRN Pain Carvedilol 12.5 mg 02/24/23 21:00 02/25/23 11:43 Carvedilol 12.5 Mg Tablet PO 12.5 mg Q12HR EVAN Administration Epoetin Manish-epbx 10,000 units 02/25/23 20:15 02/25/23 11:01 Epoetin Manish-Epbx 10,000 Units/Ml Vial IV PUSH 02/25/23 20:16 10,000 units ONCE ONE Administration Heparin Sodium (Porcine) 5,000 units 02/25/23 21:00 Heparin Sodium 5,000 Units/Ml Vial SUB-Q Q12HR [facility] Hydralazine HCl 25 mg 02/24/23 14:55 02/25/23 13:07 Hydralazine Hcl 25 Mg Tablet PO 25 mg Q8HR EVAN Administration Hydralazine HCl 50 mg 02/24/23 14:55 02/25/23 13:07 Hydralazine Hcl 50 Mg Tablet PO 50 mg Q8HR EVAN Administration Albumin Human 50 mls @ 999 mls/hr 02/25/23 06:15 Albutein IVPB 03/27/23 06:14 Q10M PRN HYPOTENSION Morphine Sulfate 2 mg 02/24/23 03:35 Morphine Sulfate (*Crx) 2 Mg/Ml Inj IV PUSH Q4H PRN Pain Rated 7-10 N
[2023-02-25] MEDS: EPOETIN ALFA-EPBX 10,000 UNITS/ML VIAL 10000 UNITS IV PUSH (11:01)
[2023-02-25] MEDS: carvediloL 12.5 MG TABLET PO ×2 (11:43→21:54)
[2023-02-25] MEDS: NIFEdipine 30 MG TAB.ER.24 60 MG PO (11:43)
--- NOTE | 2023-02-25 15:20 | PM.IMPN ---
Progress Note: A&P Assessment and Plan (1) Fluid overload: Code(s): E87.70 - Fluid overload, unspecified Status: Acute (2) ESRD on hemodialysis: Code(s): N18.6 - End stage renal disease; Z99.2 - Dependence on renal dialysis Status: Acute (3) Missed dialysis: Status: Acute Plan 83-year-old female presents to the ER with chest pain that started 2 days ago intermittent no diaphoresis or radiation. Associated cough and shortness of breath. History of end-stage renal disease on hemodialysis Tuesday. Apparently no transport was available to go for the dialysis and hence started getting short of breath and chest pain. ED evaluation revealed fluid overload. Hyperkalemia this a.m.. Already getting started at the emergent dialysis. Continue dialysis as per Nephrology. Recheck potassium and monitor for hyperkalemia. From [facility]. Care coordination for placement as daughter does not want her to go back to [facility]. Hypertension resume home medication and monitor p chronic anemia Hyperkalemia Chest pain troponin serial negative DVT prophylaxis start heparin subQ Subjective Date/time seen: 02/25/23 15:20 Interval history: Seen during dialysis. Hypertensive. Feeling well. Was short of breath. No further chest pain. Review of Systems Review of Systems: All systems reviewed & are unremarkable except as noted in HPI and below Exam Narrative: general: Awake, alert and oriented times woman, chronically ill-looking, frail HEENT: Normocephalic atraumatic Respiratory diffuse decrease in breath sounds bilaterally, no wheezing or rales clinical Cardiovascular: Regular rate and rhythm nor murmur, 2+ bilateral leg edema gastrointestinal: Nontender, nondistended, normal bowel sounds Neuro: Awake on art on return as well Psych: Calm and cooperative Objective Data Vital Signs Vital Signs: Vital Signs - 24 hr 02/24/23 16:00 02/24/23 20:32 02/24/23 20:00 Temperature 97.5 F L Pulse Rate 100 96 93 Respiratory Rate 16 Blood Pressure 187/77 H Pulse Oximetry 92 02/25/23 00:00 02/25/23 04:00 02/25/23 05:19 Temperature 98.2 F Pulse Rate 76 79 82 Respiratory Rate 16 Blood Pressure 180/62 H Pulse Oximetry 95 02/25/23 08:50 02/25/23 09:00 02/25/23 10:45 Temperature 97.8 F Pulse Rate 79 78 85 Respiratory Rate 20 Blood Pressure 174/87 H 177/79 H 195/87 H Pulse Oximetry 02/25/23 11:15 02/25/23 09:15 02/25/23 09:30 Temperature Pulse Rate 88 80 81 Respiratory Rate Blood Pressure 191/88 H 186/84 H 184/88 H Pulse Oximetry 02/25/23 09:45 02/25/23 10:00 02/25/23 10:15 Temperature Pulse Rate 82 83 86 Respiratory Rate Blood Pressure 184/85 H 192/89 H 185/91 H Pulse Oximetry 02/25/23 10:30 02/25/23 11:00 02/25/23 11:30 Temperature Pulse Rate 89 85 87 Respiratory Rate Blood Pressure 189/89 H 196/90 H 202/87 H Pulse Oximetry 02/25/23 11:45 02/25/23 11:43 02/25/23 08:00 Temperature Pulse Rate 89 89 80 Respiratory Rate Blood Pressure 197/87 H Pulse Oximetry 02/25/23 12:00 02/25/23 12:00 02/25/23 12:39 Temperature 98.2 F Pulse Rate 90 90 85 Respiratory Rate 20 Blood Pressure 204/87 H 196/86 H Pulse Oximetry 02/25/23 12:15 02/25/23 12:30 02/25/23 14:00 Temperature 98.3 F Pulse Rate 86 85 85 Respiratory Rate 16 Blood Pressure 192/86 H 191/88 H 182/62 H Pulse Oximetry 93 Intake/Output Intake/Output: Intake & Output 02/22/23 02/23/23 02/24/23 02/25/23 23:59 23:59 23:59 23:59 Intake Total 240 120 Output Total 3000 Balance 240 -2880 Meds/Results Medications: Active Medications Generic Name Dose Route Start Last Admin Trade Name Freq PRN Reason Stop Dose Admin Acetaminophen 650 mg 02/24/23 14:55 Acetaminophen 325 Mg Tablet PO Q6H PRN Pain Carvedilol 12.5 mg 02/24/23 2
[2023-02-25 20:08] LABS: Glucose Point of Care 121 mg/dl (65-105)
--- NOTE | 2023-02-25 20:21 | PC.NURSE ---
Heather Bryant LPN provided care for this patient on 02/25/23. I agree with her assessments and charting.
[2023-02-25] MEDS: HEPARIN SODIUM 5,000 UNITS/ML VIAL 5000 UNITS SUB-Q (21:55)
[2023-02-26] VITALS (10 sets, daily range): BP systolic 147–184; BP diastolic 47–67; PULSE 70–78; RESP 13–16; TEMP 36.6–36.9; O2SAT 93–95
[2023-02-26] MEDS: hydrALAZINE HCL 25 MG TABLET PO ×3 (05:50→20:45)
[2023-02-26] MEDS: hydrALAZINE HCL 50 MG TABLET PO ×3 (05:50→20:45)
[2023-02-26 06:57] LABS: Basophils Percent Auto 0.7 % (0.2-1.2); Eosinophils Absolute Auto 0.1 K/mm3 (0-0.3); Eosinophils Percent Auto 1.6 % (0-4.4); Hematocrit 28.9 % (37.0-47.0); Hemoglobin 9.1 g/dL (12.0-15.0); Immature Granulocyte Absolute 0.04 K/mm3 (0.00-0.031); Immature Granulocyte Percent A 0.7 % (0-0.5); Lymphocytes Absolute Auto 0.87 K/mm3 (0.9-3.2); Lymphocytes Percent Auto 15.7 % (18.3-44.2); Mean Corpuscular HGB Conc 31.5 g/dl (32-36); Mean Corpuscular Hemoglobin 31.2 pg (26-34); Mean Platelet Volume 10.2 fl (7.4-10.4); Monocytes Absolute Auto 0.7 K/mm3 (0.1-0.6); Monocytes Percent Auto 12.8 % (2.6-8.5); Neutrophils Absolute Auto 3.8 K/mm3 (1.3-6.7); Neutrophils Percent Auto 68.5 % (45.5-73.1); Platelet Count Result 259 k/mm3 (150-375); Red Blood Count 2.92 M/mm3 (4.2-5.4); White Blood Count 5.5 K/mm3 (4.5-10.0)
[2023-02-26 07:07] LABS: Alanine Aminotransferase 36 U/L (6-35); Albumin Level 3.7 g/dL (3.5-5.1); Alkaline Phosphatase 60 U/L (38-126); Anion Gap 10 mmol/L (8-16); Aspartate Amino Transferase 58 U/L (14-36); Bilirubin,Total 0.7 mg/dL (0.2-1.3); Blood Urea Nitrogen 44 mg/dL (7-17); Calcium 9.1 mg/dL (8.4-10.2); Carbon Dioxide 27 mmol/L (22-30); Chloride 98 mmol/L (98-107); Estimated CRCL calculation 12 ml/min; Estimated Glomerular Filt Rate 14; Glucose 97 mg/dL (65-110); Magnesium 2.1 mg/dL (1.6-2.3); Potassium 3.9 mmol/L (3.4-5.0); Sodium 135 mmol/L (137-145)
[2023-02-26] MEDS: carvediloL 12.5 MG TABLET PO ×2 (09:07→20:42)
[2023-02-26] MEDS: HEPARIN SODIUM 5,000 UNITS/ML VIAL 5000 UNITS SUB-Q ×2 (09:07→20:42)
[2023-02-26] MEDS: NIFEdipine 30 MG TAB.ER.24 90 MG PO (09:07)
--- NOTE | 2023-02-26 11:18 | PM.PNNEP ---
Progress Note: A&P Assessment and Plan (1) End stage renal disease: Code(s): N18.6 - End stage renal disease Status: Chronic Assessment and Plan: HD tomorrow continue M/W/F dialysis schedule during hospital stay follow electrolytes, volume status, and clearance (2) Fluid overload: Code(s): E87.70 - Fluid overload, unspecified Status: Acute Assessment and Plan: improving precipitated by missed dialysis treatments fluid removal with HD to attain euvolemia follow respiratory status (3) Essential (primary) hypertension: Code(s): I10 - Essential (primary) hypertension Status: Chronic Assessment and Plan: elevated on admision quite elevated even at baseline (and during her dialysis treatments) resume home medications and adjust as needed (4) Anemia: Qualifiers: Anemia type: due to chronic kidney disease Chronic kidney disease stage: stage 4 (severe) Qualified Code(s): N18.4 - Chronic kidney disease, stage 4 (severe); D63.1 - Anemia in chronic kidney disease Code(s): D64.9 - Anemia, unspecified Status: Chronic Assessment and Plan: due to ESRD Epogen with HD follow trend of H/H (5) Diabetes: Code(s): E11.9 - Type 2 diabetes mellitus without complications Status: Chronic Assessment and Plan: reported history on no medications follow sugars intermittently Will continue to follow. Subjective Date/time seen: 02/26/23 11:18 Interval history: Follow-up for end stage renal disease on hemodialysis. Tolerated dialysis treatment yesterday without any issues or problems; breathing/respiratory status seems to be doing better; BP still somwhat elevated still; no other issues/events overnight or earlier this AM. Exam Narrative: General: elderly but WD/WN female in NAD Heart: normal S1 and S2; no rub Lungs: decreased at bases Abdomen: soft, nontender, nondistended, positive bowel sounds Extremities: no cyanosis or clubbing; no edema Skin: warm and intact Objective Data Vital Signs Vital Signs: Vital Signs Temp Pulse Resp BP Pulse Ox O2 Del Method 02/26/23 08:00 Room Air 02/26/23 08:00 77 02/26/23 05:59 98.5 F 78 13 184/52 H 95 02/26/23 04:00 75 02/26/23 00:00 71 02/25/23 20:00 85 02/25/23 21:06 99.1 F 82 14 187/57 H 93 Intake/Output Intake/Output: Intake & Output 02/23/23 02/24/23 02/25/23 02/26/23 23:59 23:59 23:59 23:59 Intake Total 834 243 9760 Output Total 3000 300 Balance 240 -2640 930 Meds/Results Medications: Active Medications Generic Name Dose Route Start Last Admin Trade Name Freq PRN Reason Stop Dose Admin Acetaminophen 650 mg 02/24/23 14:55 Acetaminophen 325 Mg Tablet PO Q6H PRN Pain Carvedilol 12.5 mg 02/24/23 21:00 02/26/23 09:07 Carvedilol 12.5 Mg Tablet PO 12.5 mg Q12HR EVAN Administration Heparin Sodium (Porcine) 5,000 units 02/25/23 21:00 02/26/23 09:07 Heparin Sodium 5,000 Units/Ml Vial SUB-Q 5,000 units Q12HR EVAN Administration Hydralazine HCl 25 mg 02/24/23 14:55 02/26/23 16:12 Hydralazine Hcl 25 Mg Tablet PO 25 mg Q8HR EVAN Administration Hydralazine HCl 50 mg 02/24/23 14:55 02/26/23 16:12 Hydralazine Hcl 50 Mg Tablet PO 50 mg Q8HR EVAN Administration Albumin Human 50 mls @ 999 mls/hr 02/25/23 06:15 Albutein IVPB 03/27/23 06:14 Q10M PRN HYPOTENSION Morphine Sulfate 2 mg 02/24/23 03:35 Morphine Sulfate (*Crx) 2 Mg/Ml Inj IV PUSH Q4H PRN Pain Rated 7-10 Nifedipine 90 mg 02/26/23 09:00 02/26/23 09:07 Nifedipine 30 Mg Tab.Er.24 PO 90 mg DAILY EVAN Administration Radiology Results: ITS Impressions Chest X-Ray 02/24/23 06:51 Impression: Hazy left perihilar airspace disease. Correlate for mild central pulmonary edema or infection. Labs Lab
--- NOTE | 2023-02-26 14:11 | PM.IMPN ---
Progress Note: A&P Assessment and Plan (1) Fluid overload: Code(s): E87.70 - Fluid overload, unspecified Status: Acute (2) ESRD on hemodialysis: Code(s): N18.6 - End stage renal disease; Z99.2 - Dependence on renal dialysis Status: Acute (3) Missed dialysis: Status: Acute Plan 83-year-old female presents to the ER with chest pain that started 2 days ago intermittent no diaphoresis or radiation. Associated cough and shortness of breath. History of end-stage renal disease on hemodialysis Tuesday. Apparently no transport was available to go for the dialysis and hence started getting short of breath and chest pain. ED evaluation revealed fluid overload. Hyperkalemia this a.m.. Already getting started at the emergent dialysis. Continue dialysis as per Nephrology. Recheck potassium and monitor for hyperkalemia. From [facility]. Care coordination for placement as daughter does not want her to go back to [facility]. Hypertension resume home medication and monitor p chronic anemia Hyperkalemia resolved Hypertension: Increase Procardia Chest pain troponin serial negative DVT prophylaxis start heparin subQ Subjective Date/time seen: 02/26/23 14:11 Interval history: Feels okay. No new complaints. Blood pressure is high. Shortness of breath has improved. Review of Systems Review of Systems: All systems reviewed & are unremarkable except as noted in HPI and below Exam Narrative: general: Awake, alert and oriented times woman, chronically ill-looking, frail HEENT: Normocephalic atraumatic Respiratory diffuse decrease in breath sounds bilaterally, no wheezing or rales clinical Cardiovascular: Regular rate and rhythm nor murmur, 2+ bilateral leg edema gastrointestinal: Nontender, nondistended, normal bowel sounds Neuro: Awake on art on return as well Psych: Calm and cooperative Objective Data Vital Signs Vital Signs: Vital Signs - 24 hr 02/25/23 15:50 02/25/23 16:00 02/25/23 21:06 Temperature 99.1 F Pulse Rate 80 82 Respiratory Rate 14 Blood Pressure 170/68 H 187/57 H Pulse Oximetry 93 Oxygen Delivery 02/25/23 20:00 02/26/23 00:00 02/26/23 04:00 Temperature Pulse Rate 85 71 75 Respiratory Rate Blood Pressure Pulse Oximetry Oxygen Delivery 02/26/23 05:59 02/26/23 08:00 02/26/23 08:00 Temperature 98.5 F Pulse Rate 78 77 Respiratory Rate 13 Blood Pressure 184/52 H Pulse Oximetry 95 Oxygen Delivery Room Air Intake/Output Intake/Output: Intake & Output 02/23/23 02/24/23 02/25/23 02/26/23 23:59 23:59 23:59 23:59 Intake Total 240 360 990 Output Total 3000 300 Balance 240 -2640 690 Meds/Results Medications: Active Medications Generic Name Dose Route Start Last Admin Trade Name Freq PRN Reason Stop Dose Admin Acetaminophen 650 mg 02/24/23 14:55 Acetaminophen 325 Mg Tablet PO Q6H PRN Pain Carvedilol 12.5 mg 02/24/23 21:00 02/26/23 09:07 Carvedilol 12.5 Mg Tablet PO 12.5 mg Q12HR EVAN Administration Heparin Sodium (Porcine) 5,000 units 02/25/23 21:00 02/26/23 09:07 Heparin Sodium 5,000 Units/Ml Vial SUB-Q 5,000 units Q12HR EVAN Administration Hydralazine HCl 25 mg 02/24/23 14:55 02/26/23 05:50 Hydralazine Hcl 25 Mg Tablet PO 25 mg Q8HR EVAN Administration Hydralazine HCl 50 mg 02/24/23 14:55 02/26/23 05:50 Hydralazine Hcl 50 Mg Tablet PO 50 mg Q8HR EVAN Administration Albumin Human 50 mls @ 999 mls/hr 02/25/23 06:15 Albutein IVPB 03/27/23 06:14 Q10M PRN HYPOTENSION Morphine Sulfate 2 mg 02/24/23 03:35 Morphine Sulfate (*Crx) 2 Mg/Ml Inj IV PUSH Q4H PRN Pain Rated 7-10 Nifedipine 90 mg 02/26/23 09:00 02/26/23 09:07 Nifedipine 30 Mg Tab.Er.24 PO 90 mg DAILY VEAN Administration Radiology Results: ITS Impressions Chest X-Ray
[2023-02-27] VITALS (9 sets, daily range): BP systolic 140–173; BP diastolic 48–62; PULSE 57–74; RESP 16–18; TEMP 36.6–36.9; O2SAT 93–98
[2023-02-27] MEDS: hydrALAZINE HCL 50 MG TABLET PO ×3 (06:07→22:19)
[2023-02-27] MEDS: hydrALAZINE HCL 25 MG TABLET PO ×3 (06:07→22:19)
[2023-02-27 06:43] LABS: Basophils Percent Auto 0.5 % (0.2-1.2); Eosinophils Absolute Auto 0.2 K/mm3 (0-0.3); Eosinophils Percent Auto 2.8 % (0-4.4); Hematocrit 28.7 % (37.0-47.0); Immature Granulocyte Absolute 0.04 K/mm3 (0.00-0.031); Immature Granulocyte Percent A 0.7 % (0-0.5); Lymphocytes Percent Auto 17.5 % (18.3-44.2); Mean Corpuscular HGB Conc 31.4 g/dl (32-36); Mean Platelet Volume 9.7 fl (7.4-10.4); Monocytes Absolute Auto 0.7 K/mm3 (0.1-0.6); Monocytes Percent Auto 12.8 % (2.6-8.5); Neutrophils Absolute Auto 3.7 K/mm3 (1.3-6.7); Neutrophils Percent Auto 65.7 % (45.5-73.1); Platelet Count Result 271 k/mm3 (150-375); Red Cell Distribution Width 14.7 % (11.5-14.5); White Blood Count 5.7 K/mm3 (4.5-10.0)
[2023-02-27 06:47] LABS: Alanine Aminotransferase 37 U/L (6-35); Albumin Level 3.6 g/dL (3.5-5.1); Alkaline Phosphatase 69 U/L (38-126); Anion Gap 11 mmol/L (8-16); Aspartate Amino Transferase 41 U/L (14-36); Bilirubin,Total 0.6 mg/dL (0.2-1.3); Blood Urea Nitrogen 53 mg/dL (7-17); Calcium 9.1 mg/dL (8.4-10.2); Carbon Dioxide 26 mmol/L (22-30); Chloride 97 mmol/L (98-107); Estimated CRCL calculation 9 ml/min; Estimated Glomerular Filt Rate 10; Glucose 116 mg/dL (65-110); Magnesium 2.1 mg/dL (1.6-2.3); Potassium 3.8 mmol/L (3.4-5.0); Sodium 134 mmol/L (137-145)
[2023-02-27] MEDS: HEPARIN SODIUM 5,000 UNITS/ML VIAL 5000 UNITS SUB-Q ×2 (09:21→21:34)
[2023-02-27] MEDS: NIFEdipine 30 MG TAB.ER.24 90 MG PO (09:21)
[2023-02-27] MEDS: carvediloL 12.5 MG TABLET PO ×2 (09:21→21:34)
--- NOTE | 2023-02-27 12:15 | PM.PNNEP ---
Progress Note: A&P Assessment and Plan (1) End stage renal disease: Code(s): N18.6 - End stage renal disease Status: Chronic Assessment and Plan: HD tomorrow continue M/W/F dialysis schedule during hospital stay follow electrolytes, volume status, and clearance (2) Fluid overload: Code(s): E87.70 - Fluid overload, unspecified Status: Acute Assessment and Plan: improving precipitated by missed dialysis treatments fluid removal with HD to attain euvolemia follow respiratory status (3) Essential (primary) hypertension: Code(s): I10 - Essential (primary) hypertension Status: Chronic Assessment and Plan: elevated on admision quite elevated even at baseline (and during her dialysis treatments) resume home medications and adjust as needed (4) Anemia: Qualifiers: Anemia type: due to chronic kidney disease Chronic kidney disease stage: stage 4 (severe) Qualified Code(s): N18.4 - Chronic kidney disease, stage 4 (severe); D63.1 - Anemia in chronic kidney disease Code(s): D64.9 - Anemia, unspecified Status: Chronic Assessment and Plan: due to ESRD Epogen with HD follow trend of H/H (5) Diabetes: Code(s): E11.9 - Type 2 diabetes mellitus without complications Status: Chronic Assessment and Plan: reported history on no medications follow sugars intermittently Will continue to follow. Subjective Date/time seen: 02/27/23 12:15 Interval history: Follow-up for end stage renal disease on hemodialysis. Overall, seems to be doing reasonably well; breathing/respiratory status is stable if not improved; better hemodynamics/BP readings noted; no issues/events overnight. Exam Narrative: General: elderly but WD/WN female in NAD Heart: normal S1 and S2; no rub Lungs: decreased at bases Abdomen: soft, nontender, nondistended, positive bowel sounds Extremities: no cyanosis or clubbing; no edema Skin: no rash Objective Data Vital Signs Vital Signs: Vital Signs Temp Pulse Resp BP Pulse Ox O2 Del Method 02/27/23 08:00 96 Room Air 02/27/23 09:21 68 02/27/23 04:00 62 02/27/23 04:33 97.9 F 62 16 140/48 L 93 02/27/23 00:00 62 02/26/23 20:00 73 02/26/23 20:00 Room Air 02/26/23 20:15 97.9 F 72 16 147/47 H 94 02/26/23 20:42 71 Intake/Output Intake/Output: Intake & Output 02/24/23 02/25/23 02/26/23 02/27/23 23:59 23:59 23:59 23:59 Intake Total 598 842 6046 240 Output Total 3000 900 300 Balance 240 -2640 570 -60 Meds/Results Medications: Active Medications Generic Name Dose Route Start Last Admin Trade Name Freq PRN Reason Stop Dose Admin Acetaminophen 650 mg 02/24/23 14:55 Acetaminophen 325 Mg Tablet PO Q6H PRN Pain Carvedilol 12.5 mg 02/24/23 21:00 02/27/23 09:21 Carvedilol 12.5 Mg Tablet PO 12.5 mg Q12HR EVAN Administration Guaifenesin/Dextromethorphan 1 tab 02/27/23 21:00 Guaifenesin 600 Mg/Dextromethorphan 30 Mg Sr Tab 12 Hr PO Q12HR EVAN Heparin Sodium (Porcine) 5,000 units 02/25/23 21:00 02/27/23 09:21 Heparin Sodium 5,000 Units/Ml Vial SUB-Q 5,000 units Q12HR EVAN Administration Hydralazine HCl 25 mg 02/24/23 14:55 02/27/23 06:07 Hydralazine Hcl 25 Mg Tablet PO 25 mg Q8HR EVAN Administration Hydralazine HCl 50 mg 02/24/23 14:55 02/27/23 06:07 Hydralazine Hcl 50 Mg Tablet PO 50 mg Q8HR EVAN Administration Albumin Human 50 mls @ 999 mls/hr 02/25/23 06:15 Albutein IVPB 03/27/23 06:14 Q10M PRN HYPOTENSION Morphine Sulfate 2 mg 02/24/23 03:35 Morphine Sulfate (*Crx) 2 Mg/Ml Inj IV PUSH Q4H PRN Pain Rated 7-10 Nifedipine 90 mg 02/26/23 09:00 02/27/23 09:21 Nifedipine 30 Mg Tab.Er.24 PO 90 mg DAILY EVAN Administration Radiology Results: ITS Impressions Chest X-R
--- NOTE | 2023-02-27 12:15 | P.PNNP_ITS ---
Progress Note: A&P Assessment and Plan (1) End stage renal disease: Code(s): N18.6 - End stage renal disease Status: Chronic Assessment and Plan: * HD tomorrow * continue M/W/F dialysis schedule during hospital stay * follow electrolytes, volume status, and clearance (2) Fluid overload: Code(s): E87.70 - Fluid overload, unspecified Status: Acute Assessment and Plan: * improving * precipitated by missed dialysis treatments * fluid removal with HD to attain euvolemia * follow respiratory status (3) Essential (primary) hypertension: Code(s): I10 - Essential (primary) hypertension Status: Chronic Assessment and Plan: * elevated on admision * quite elevated even at baseline (and during her dialysis treatments) * resume home medications and adjust as needed (4) Anemia: Qualifiers: Anemia type: due to chronic kidney disease Chronic kidney disease stage: stage 4 (severe) Qualified Code(s): N18.4 - Chronic kidney disease, stage 4 (severe); D63.1 - Anemia in chronic kidney disease Code(s): D64.9 - Anemia, unspecified Status: Chronic Assessment and Plan: * due to ESRD * Epogen with HD * follow trend of H/H (5) Diabetes: Code(s): E11.9 - Type 2 diabetes mellitus without complications Status: Chronic Assessment and Plan: * reported history * on no medications * follow sugars intermittently Will continue to follow. Subjective Date/time seen: 02/27/23 12:15 Interval history: Follow-up for end stage renal disease on hemodialysis. Overall, seems to be doing reasonably well; breathing/respiratory status is stable if not improved; better hemodynamics/BP readings noted; no issues/events overnight. Exam Narrative: General: elderly but WD/WN female in NAD Heart: normal S1 and S2; no rub Lungs: decreased at bases Abdomen: soft, nontender, nondistended, positive bowel sounds Extremities: no cyanosis or clubbing; no edema Skin: no rash Objective Data Vital Signs Vital Signs: Vital Signs Temp Pulse Resp BP Pulse Ox O2 Del Method 02/27/23 08:00 96 Room Air 02/27/23 09:21 68 02/27/23 04:00 62 02/27/23 04:33 97.9 F 62 16 140/48 L 93 02/27/23 00:00 62 02/26/23 20:00 73 02/26/23 20:00 Room Air 02/26/23 20:15 97.9 F 72 16 147/47 H 94 02/26/23 20:42 71 Intake/Output Intake/Output: Intake & Output 02/24/23 02/25/23 02/26/23 02/27/23 23:59 23:59 23:59 23:59 Intake Total 099 330 7933 240 Output Total 3000 900 300 Balance 240 -2640 570 -60 Meds/Results Medications: Active Medications Generic Name Dose Route Start Last Admin Trade Name Freq PRN Reason Stop Dose Admin Acetaminophen 650 mg 02/24/23 14:55 Acetaminophen 325 Mg Tablet PO Q6H PRN Pain Carvedilol 12.5 mg 02/24/23 21:00 02/27/23 09:21 Carvedilol 12.5 Mg Tablet PO 12.5 mg Q12HR EVAN Administration Guaifenesin/Dextromethorphan 1 tab 02/27/23 21:00 Guaifenesin 600 Mg/Dextromethorphan 30 Mg Sr Tab 12 Hr PO
--- NOTE | 2023-02-27 14:35 | PM.IMPN ---
Progress Note: A&P Assessment and Plan (1) Fluid overload: Code(s): E87.70 - Fluid overload, unspecified Status: Acute (2) ESRD on hemodialysis: Code(s): N18.6 - End stage renal disease; Z99.2 - Dependence on renal dialysis Status: Acute (3) Missed dialysis: Status: Acute Plan 83-year-old female presents to the ER with chest pain that started 2 days ago intermittent no diaphoresis or radiation. Associated cough and shortness of breath. History of end-stage renal disease on hemodialysis Tuesday. Apparently no transport was available to go for the dialysis and hence started getting short of breath and chest pain. ED evaluation revealed fluid overload. Hyperkalemia this a.m.. Already getting started at the emergent dialysis. Continue dialysis as per Nephrology. Recheck potassium and monitor for hyperkalemia. From [facility]. Care coordination for placement as daughter does not want her to go back to [facility]. Hypertension resume home medication and monitor p chronic anemia Hyperkalemia resolved Hypertension: Increase Procardia blood pressures improved with that Chest pain troponin serial negative DVT prophylaxis start heparin subQ Subjective Date/time seen: 02/27/23 14:35 Interval history: Reports some cough no shortness of breath. Blood pressure is improved. Review of Systems Review of Systems: All systems reviewed & are unremarkable except as noted in HPI and below Exam Narrative: general: Awake, alert and oriented times woman, chronically ill-looking, frail HEENT: Normocephalic atraumatic Respiratory diffuse decrease in breath sounds bilaterally, no wheezing or rales clinical Cardiovascular: Regular rate and rhythm nor murmur, 2+ bilateral leg edema gastrointestinal: Nontender, nondistended, normal bowel sounds Neuro: Awake on art on return as well Psych: Calm and cooperative Objective Data Vital Signs Vital Signs: Vital Signs - 24 hr 02/26/23 15:00 02/26/23 15:43 02/26/23 16:00 Temperature Pulse Rate 72 Respiratory Rate Blood Pressure Pulse Oximetry Oxygen Delivery Room Air Room Air 02/26/23 20:42 02/26/23 20:15 02/26/23 20:00 Temperature 97.9 F Pulse Rate 71 72 Respiratory Rate 16 Blood Pressure 147/47 H Pulse Oximetry 94 Oxygen Delivery Room Air 02/26/23 20:00 02/27/23 00:00 02/27/23 04:33 Temperature 97.9 F Pulse Rate 73 62 62 Respiratory Rate 16 Blood Pressure 140/48 L Pulse Oximetry 93 Oxygen Delivery 02/27/23 04:00 02/27/23 09:21 02/27/23 08:00 Temperature Pulse Rate 62 68 Respiratory Rate Blood Pressure Pulse Oximetry 96 Oxygen Delivery Room Air Intake/Output Intake/Output: Intake & Output 02/24/23 02/25/23 02/26/23 02/27/23 23:59 23:59 23:59 23:59 Intake Total 412 245 0149 240 Output Total 3000 900 300 Balance 240 -2640 570 -60 Meds/Results Medications: Active Medications Generic Name Dose Route Start Last Admin Trade Name Freq PRN Reason Stop Dose Admin Acetaminophen 650 mg 02/24/23 14:55 Acetaminophen 325 Mg Tablet PO Q6H PRN Pain Carvedilol 12.5 mg 02/24/23 21:00 02/27/23 09:21 Carvedilol 12.5 Mg Tablet PO 12.5 mg Q12HR EVAN Administration Heparin Sodium (Porcine) 5,000 units 02/25/23 21:00 02/27/23 09:21 Heparin Sodium 5,000 Units/Ml Vial SUB-Q 5,000 units Q12HR EVAN Administration Hydralazine HCl 25 mg 02/24/23 14:55 02/27/23 06:07 Hydralazine Hcl 25 Mg Tablet PO 25 mg Q8HR EVAN Administration Hydralazine HCl 50 mg 02/24/23 14:55 02/27/23 06:07 Hydralazine Hcl 50 Mg Tablet PO 50 mg Q8HR EVAN Administration Albumin Human 50 mls @ 999 mls/hr 02/25/23 06:15 Albutein IVPB 03/27/23 06:14 Q10M PRN HYPOTENSION Morphine Sulfate 2 mg 02/24/23 03:35 Morphine Sulfate (*Crx) 2 Mg/Ml Inj IV PUSH Q4H PRN
[2023-02-27] MEDS: guaiFENesin 600 MG/DEXTROMETHORPHAN 30 MG SR TAB 12 HR 1 TAB PO (21:34)
[2023-02-28] VITALS (23 sets, daily range): BP systolic 148–175; BP diastolic 42–82; PULSE 62–69; RESP 16–18; TEMP 36.3–37.5; O2SAT 95–96
[2023-02-28] MEDS: hydrALAZINE HCL 25 MG TABLET PO ×2 (05:26→20:53)
[2023-02-28] MEDS: hydrALAZINE HCL 50 MG TABLET PO ×2 (05:26→20:53)
[2023-02-28] MEDS: carvediloL 12.5 MG TABLET PO ×2 (09:04→20:52)
[2023-02-28] MEDS: guaiFENesin 600 MG/DEXTROMETHORPHAN 30 MG SR TAB 12 HR 1 TAB PO ×2 (09:04→20:52)
[2023-02-28] MEDS: NIFEdipine 30 MG TAB.ER.24 90 MG PO (09:05)
[2023-02-28] MEDS: HEPARIN SODIUM 5,000 UNITS/ML VIAL 5000 UNITS SUB-Q ×2 (09:06→20:53)
--- NOTE | 2023-02-28 13:00 | PC.NURSE ---
Report called to [employer] [facility]
--- NOTE | 2023-02-28 13:22 | PCOTNOTE ---
Patient unavailable for OT treatment session at this time. Patient going to dialysis.
--- NOTE | 2023-02-28 13:30 | PC.NURSE ---
To Dialysis via bed.
--- NOTE | 2023-02-28 13:52 | PM.IMPN ---
Progress Note: A&P Assessment and Plan (1) Fluid overload: Code(s): E87.70 - Fluid overload, unspecified Status: Acute (2) ESRD on hemodialysis: Code(s): N18.6 - End stage renal disease; Z99.2 - Dependence on renal dialysis Status: Acute (3) Missed dialysis: Status: Acute Plan 83-year-old female presents to the ER with chest pain that started 2 days ago intermittent no diaphoresis or radiation. Associated cough and shortness of breath. History of end-stage renal disease on hemodialysis Tuesday. Apparently no transport was available to go for the dialysis and hence started getting short of breath and chest pain. ED evaluation revealed fluid overload. Hyperkalemia this a.m.. Already getting started at the emergent dialysis. Continue dialysis as per Nephrology. Recheck potassium and monitor for hyperkalemia. From [facility]. Care coordination for placement as daughter does not want her to go back to [facility]. Hypertension resume home medication and monitor p chronic anemia Hyperkalemia resolved Hypertension: Increase Procardia blood pressures improved with that. May up titrate up hydralazine to 100 mg q.8 Chest pain troponin serial negative DVT prophylaxis start heparin subQ Subjective Date/time seen: 02/28/23 13:52 Interval history: Feels lousy otherwise no new complaint. Plan dialysis today placement in process Review of Systems Review of Systems: All systems reviewed & are unremarkable except as noted in HPI and below Exam Narrative: general: Awake, alert and oriented times woman, chronically ill-looking, frail HEENT: Normocephalic atraumatic Respiratory diffuse decrease in breath sounds bilaterally, no wheezing or rales clinical Cardiovascular: Regular rate and rhythm nor murmur, 2+ bilateral leg edema gastrointestinal: Nontender, nondistended, normal bowel sounds Neuro: Awake on art on return as well Psych: Calm and cooperative Objective Data Vital Signs Vital Signs: Vital Signs - 24 hr 02/27/23 14:00 02/27/23 21:34 02/27/23 21:55 Temperature 98.1 F 98.5 F Pulse Rate 73 69 69 Respiratory Rate 18 18 Blood Pressure 173/62 H 154/52 H Pulse Oximetry 98 98 Oxygen Delivery 02/27/23 20:00 02/28/23 06:00 02/28/23 09:04 Temperature 97.9 F Pulse Rate 62 64 Respiratory Rate 18 Blood Pressure 169/42 H Pulse Oximetry 96 Oxygen Delivery Room Air 02/28/23 09:06 Temperature Pulse Rate Respiratory Rate 18 Blood Pressure Pulse Oximetry 96 Oxygen Delivery Room Air Intake/Output Intake/Output: Intake & Output 02/25/23 02/26/23 02/27/23 02/28/23 23:59 23:59 23:59 23:59 Intake Total 360 1470 720 680 Output Total 3000 900 300 Balance -2640 570 420 680 Meds/Results Medications: Active Medications Generic Name Dose Route Start Last Admin Trade Name Freq PRN Reason Stop Dose Admin Acetaminophen 650 mg 02/24/23 14:55 Acetaminophen 325 Mg Tablet PO Q6H PRN Pain Carvedilol 12.5 mg 02/24/23 21:00 02/28/23 09:04 Carvedilol 12.5 Mg Tablet PO 12.5 mg Q12HR EVAN Administration Docusate Sodium 100 mg 02/28/23 21:00 Docusate Sodium 100 Mg Capsule PO Q12HR [facility] Epoetin Manish-epbx 10,000 units 02/28/23 20:19 Epoetin Manish-Epbx 10,000 Units/Ml Vial IV PUSH 02/28/23 20:20 ONCE ONE Guaifenesin/Dextromethorphan 1 tab 02/27/23 21:00 02/28/23 09:04 Guaifenesin 600 Mg/Dextromethorphan 30 Mg Sr Tab 12 Hr PO 1 tab Q12HR EVAN Administration Heparin Sodium (Porcine) 5,000 units 02/25/23 21:00 02/28/23 09:06 Heparin Sodium 5,000 Units/Ml Vial SUB-Q 5,000 units Q12HR EVAN Administration Hydralazine HCl 25 mg 02/24/23 14:55 02/28/23 13:06 Hydralazine Hcl 25 Mg Tablet PO Not Given Q8HR EVAN Hydralazine HCl 50 mg 02/24/23 14:55 02/28/23 13:14 Hydralazine Hcl 50 Mg Tablet PO Not Given Q8HR EVAN
--- NOTE | 2023-02-28 17:01 | PM.PNNEP ---
Progress Note: A&P Assessment and Plan (1) End stage renal disease: Code(s): N18.6 - End stage renal disease Status: Chronic Assessment and Plan: HD today continue M/W/F dialysis schedule during hospital stay follow electrolytes, volume status, and clearance (2) Fluid overload: Code(s): E87.70 - Fluid overload, unspecified Status: Acute Assessment and Plan: improving precipitated by missed dialysis treatments fluid removal with HD to attain euvolemia follow respiratory status (3) Essential (primary) hypertension: Code(s): I10 - Essential (primary) hypertension Status: Chronic Assessment and Plan: elevated on admision quite elevated even at baseline (and during her dialysis treatments) resume home medications and adjust as needed (4) Anemia: Qualifiers: Anemia type: due to chronic kidney disease Chronic kidney disease stage: stage 4 (severe) Qualified Code(s): N18.4 - Chronic kidney disease, stage 4 (severe); D63.1 - Anemia in chronic kidney disease Code(s): D64.9 - Anemia, unspecified Status: Chronic Assessment and Plan: due to ESRD Epogen with HD follow trend of H/H (5) Diabetes: Code(s): E11.9 - Type 2 diabetes mellitus without complications Status: Chronic Assessment and Plan: reported history on no medications follow sugars intermittently Will continue to follow. Subjective Date/time seen: 02/28/23 17:01 Interval history: Follow-up for end stage renal disease on hemodialysis. Tolerating hemodialysis treatment at the time of my viist (seen on HD at 4:50PM); no new issues or concerns to report; no apparent distress noted; feels reasonably well. Exam Narrative: General: elderly but WD/WN female in NAD Heart: normal S1 and S2; no rub Lungs: decreased at bases Abdomen: soft, nontender, nondistended, positive bowel sounds Extremities: no cyanosis or clubbing; no edema Skin: no nodules Objective Data Vital Signs Vital Signs: Vital Signs Temp Pulse Resp BP Pulse Ox O2 Del Method 02/28/23 17:00 68 175/71 H 02/28/23 16:45 66 166/76 H 02/28/23 16:30 66 168/80 H 02/28/23 16:15 65 161/82 H 02/28/23 16:15 65 161/82 H 02/28/23 16:00 65 158/73 H 02/28/23 15:45 65 169/76 H 02/28/23 15:30 65 157/73 H 02/28/23 15:15 64 154/72 H 02/28/23 15:00 62 166/78 H 02/28/23 14:45 63 153/72 H 02/28/23 14:30 63 152/70 H 02/28/23 14:15 63 153/70 H 02/28/23 14:00 63 149/74 H 02/28/23 13:53 63 148/70 H 02/28/23 15:38 97.4 F L 65 18 164/72 H 02/28/23 09:06 18 96 Room Air 02/28/23 09:04 64 02/28/23 06:00 97.9 F 62 18 169/42 H 96 02/27/23 20:00 Room Air 02/27/23 21:55 98.5 F 69 18 154/52 H 98 02/27/23 21:34 69 Intake/Output Intake/Output: Intake & Output 02/25/23 02/26/23 02/27/23 02/28/23 23:59 23:59 23:59 23:59 Intake Total 360 1470 720 800 Output Total 3000 087 109 6467 Balance -2640 570 420 -2200 Meds/Results Medications: Active Medications Generic Name Dose Route Start Last Admin Trade Name Freq PRN Reason Stop Dose Admin Acetaminophen 650 mg 02/24/23 14:55 Acetaminophen 325 Mg Tablet PO Q6H PRN Pain Carvedilol 12.5 mg 02/24/23 21:00 02/28/23 09:04 Carvedilol 12.5 Mg Tablet PO 12.5 mg Q12HR EVAN Administration Docusate Sodium 100 mg 02/28/23 21:00 Docusate Sodium 100 Mg Capsule PO Q12HR EVAN Epoetin Manish-epbx 10,000 units 02/28/23 20:19 Epoetin Manish-Epbx 10,000 Units/Ml Vial IV PUSH 02/28/23 20:20 ONCE ONE Guaifenesin/Dextromethorphan 1 tab 02/27/23 21:00 02/28/23 09:04 Guaifenesin 600 Mg/Dextromethorphan 30 Mg Sr Tab 12 Hr PO 1 tab Q12HR EVAN Administration Heparin Sodium (Porcine) 5,000 units 02/25/23 21:00 02/28/23 09:
--- NOTE | 2023-02-28 17:40 | PC.NURSE ---
Returned from Dialysis via bed.
[2023-02-28] MEDS: DOCUSATE SODIUM 100 MG CAPSULE PO (20:52)
[2023-03-01 04:47] VITALS: BP 146/42; PULSE 62; RESP 16; TEMP 36.6; O2SAT 96
[2023-03-01] MEDS: hydrALAZINE HCL 50 MG TABLET PO ×2 (06:35→14:14)
[2023-03-01] MEDS: hydrALAZINE HCL 25 MG TABLET PO ×2 (06:35→14:14)
[2023-03-01] MEDS: guaiFENesin 600 MG/DEXTROMETHORPHAN 30 MG SR TAB 12 HR 1 TAB PO (09:28)
[2023-03-01] MEDS: HEPARIN SODIUM 5,000 UNITS/ML VIAL 5000 UNITS SUB-Q (09:28)
[2023-03-01] MEDS: DOCUSATE SODIUM 100 MG CAPSULE PO (09:28)
[2023-03-01 09:29] VITALS: PULSE 80
[2023-03-01] MEDS: carvediloL 12.5 MG TABLET PO (09:29)
[2023-03-01] MEDS: NIFEdipine 30 MG TAB.ER.24 90 MG PO (09:29)
--- NOTE | 2023-03-01 10:40 | PM.PNNEP ---
Progress Note: A&P Assessment and Plan (1) End stage renal disease: Code(s): N18.6 - End stage renal disease Status: Chronic Assessment and Plan: HD tomorrow continue M/W/F dialysis schedule during hospital stay follow electrolytes, volume status, and clearance (2) Fluid overload: Code(s): E87.70 - Fluid overload, unspecified Status: Acute Assessment and Plan: improving precipitated by missed dialysis treatments fluid removal with HD to attain euvolemia follow respiratory status (3) Essential (primary) hypertension: Code(s): I10 - Essential (primary) hypertension Status: Chronic Assessment and Plan: elevated on admision quite elevated even at baseline (and during her dialysis treatments) resume home medications and adjust as needed (4) Anemia: Qualifiers: Anemia type: due to chronic kidney disease Chronic kidney disease stage: stage 4 (severe) Qualified Code(s): N18.4 - Chronic kidney disease, stage 4 (severe); D63.1 - Anemia in chronic kidney disease Code(s): D64.9 - Anemia, unspecified Status: Chronic Assessment and Plan: due to ESRD Epogen with HD follow trend of H/H (5) Diabetes: Code(s): E11.9 - Type 2 diabetes mellitus without complications Status: Chronic Assessment and Plan: reported history on no medications follow sugars intermittently Not opposed to discharge from renal perspective when otherwise medically stable. Will continue to follow. Subjective Date/time seen: 03/01/23 10:40 Interval history: Follow-up for end stage renal disease on hemodialysis. Tolerated dialysis treatment yesterday afternoon/evening without any issues or problems; no apparent distress noted; no other issues/events overnight or earlier this morning. Exam Narrative: General: elderly but WD/WN female in NAD Heart: normal S1 and S2; no rub Lungs: decreased at bases Abdomen: soft, nontender, nondistended, positive bowel sounds Extremities: no cyanosis or clubbing; no edema Skin: warm and dry Objective Data Vital Signs Vital Signs: Vital Signs Temp Pulse Resp BP Pulse Ox 03/01/23 09:29 80 03/01/23 04:47 97.9 F 62 16 146/42 H 96 02/28/23 21:15 98.1 F 68 16 166/50 H 95 02/28/23 20:52 69 02/28/23 17:30 97.9 F 69 16 162/79 H 02/28/23 17:23 68 171/79 H 02/28/23 17:00 68 175/71 H 02/28/23 16:45 66 166/76 H 02/28/23 16:30 66 168/80 H 02/28/23 16:15 65 161/82 H 02/28/23 16:15 65 161/82 H 02/28/23 16:00 65 158/73 H 02/28/23 15:45 65 169/76 H 02/28/23 15:30 65 157/73 H 02/28/23 15:15 64 154/72 H 02/28/23 15:00 62 166/78 H 02/28/23 14:45 63 153/72 H 02/28/23 14:30 63 152/70 H 02/28/23 14:15 63 153/70 H 02/28/23 14:00 63 149/74 H 02/28/23 13:53 63 148/70 H 02/28/23 15:38 97.4 F L 65 18 164/72 H Intake/Output Intake/Output: Intake & Output 02/26/23 02/27/23 02/28/23 03/01/23 23:59 23:59 23:59 23:59 Intake Total 1470 720 800 160 Output Total 811 924 1267 Balance 570 420 -2200 160 Meds/Results Medications: Active Medications Generic Name Dose Route Start Last Admin Trade Name Freq PRN Reason Stop Dose Admin Acetaminophen 650 mg 02/24/23 14:55 Acetaminophen 325 Mg Tablet PO Q6H PRN Pain Carvedilol 12.5 mg 02/24/23 21:00 03/01/23 09:29 Carvedilol 12.5 Mg Tablet PO 12.5 mg Q12HR EVAN Administration Docusate Sodium 100 mg 02/28/23 21:00 03/01/23 09:28 Docusate Sodium 100 Mg Capsule PO 100 mg Q12HR EVAN Administration Guaifenesin/Dextromethorphan 1 tab 02/27/23 21:00 03/01/23 09:28 Guaifenesin 600 Mg/Dextromethorphan 30 Mg Sr Tab 12 Hr PO 1 tab Q12HR EVAN Administration Heparin Sodium (Porcine) 5,000 units 02/25/23 21:00 03/01/23 09:28 Heparin Sodium 5,000 Units/
[2023-03-01 14:00] VITALS: BP 161/59; PULSE 65; RESP 14; TEMP 36.8; O2SAT 98
--- NOTE | 2023-03-01 16:30 | PM.DS ---
DS: Admitting Diagnosis Discharge Date 03/01/2023 Admitting Diagnosis Fluid overload DS: Discharge Diagnosis Discharge Diagnosis (1) Fluid overload: Code(s): E87.70 - Fluid overload, unspecified Status: Acute (2) ESRD on hemodialysis: Code(s): N18.6 - End stage renal disease; Z99.2 - Dependence on renal dialysis Status: Acute (3) Missed dialysis: Status: Acute DS: Summary Hospital Course Hospital Course: 83-year-old female presents to the ER with chest pain that started 2 days ago intermittent no diaphoresis or radiation.? Associated cough and shortness of breath.? History of end-stage renal disease on hemodialysis Tuesday.? Apparently no transport was available to go for the dialysis and hence started getting short of breath and chest pain.? ED evaluation revealed fluid overload.? Hyperkalemia on admission..? Already getting started at the emergent dialysis.? Continue dialysis as per Nephrology.? Recheck potassium and monitor for hyperkalemia and remained stable.? From [facility].? Care coordination for placement as daughter does not want her to go back to [facility].? However no other facility would accept and hence getting back to [facility]. Hypertension resume home medication and monitor blood pressure was elevated partly was related to fluid overload adjusted medication with Imdur increase to 90 mg daily blood pressure stable with a p chronic anemia Hyperkalemia resolved Hypertension: Increase Procardia blood pressures improved with that.? May up titrate up hydralazine to 100 mg q.8 Chest pain troponin serial negative DVT prophylaxis start heparin subQ Time Spent with Patient Time attestation: Total time spent providing and/or coordinating discharge services: 35 minutes Exam Narrative: general: Awake, alert and oriented times woman, chronically ill-looking, frail HEENT: Normocephalic atraumatic Respiratory diffuse decrease in breath sounds bilaterally, no wheezing or rales clinical Cardiovascular: Regular rate and rhythm nor murmur, 2+ bilateral leg edema gastrointestinal: Nontender, nondistended, normal bowel sounds Neuro: Awake on art on return as well Psych: Calm and cooperative DS: Data Imaging Radiologist's impression: ITS Impressions Chest X-Ray 02/24/23 06:51 Impression: Hazy left perihilar airspace disease. Correlate for mild central pulmonary edema or infection. Discharge Plan Discharge Attending physician on discharge: Luis Carlos Miller Consulting providers: Sheryl Fulton Discharging Clinician: Luis Carlos Miller Anticipated Discharge Date/Time: 03/01/23 16:27 Patient Disposition: SNF Activity: as tolerated Diet: renal Stand Alone Forms: General Discharge Information, Mcc Discharge Follow-up/Referrals: Gretta Ocampo, [employer] CURER [Primary Care Provider] - 1 Week Discharge Medications: New Mucinex DM 30-600 mg Tablet Extended Release 12 Hr 1 tab PO Q12HR PRN (Reason: Cough) Qty: 30 0RF nifedipine [Procardia XL] 30 mg Tablet Extended Release 24hr 90 mg PO DAILY Qty: 30 0RF docusate sodium 100 mg Capsule 100 mg PO Q12HR PRN (Reason: Constipation) Qty: 60 0RF Continued carvedilol [Coreg] 12.5 mg tablet 12.5 mg PO Q12HR hydralazine 25 mg tablet 25 mg PO Q8H hydralazine 50 mg tablet 50 mg PO Q8H acetaminophen 325 mg Capsule 650 mg PO Q6H PRN (Reason: Pain) Discontinued nifedipine 60 mg tablet extended release 60 mg PO DAILY Rx Instructions: TAKE 1 TABLET BY MOUTH DAILY Date of admission: 02/24/23 03:43 Primary Care Provider: Gretta Ocampo Admitting Provider: Jaycee Mejia Attending physician on admission: Jaycee Mejia Condition: Stable
[2023-03-01 18:37] LABS: SARS-CoV-2 RNA PCR Negative (Negative)
== END 2023-03-01 20:53 ==
LOC: ANHED 02-24 08:18 → ANH3MEDSUR 02-24 12:08
PROVIDERS: Internal Medicine Nephrology; Admitting Provider Student in an Organized Health Care Education/Training Program; Emergency Provider Emergency Medicine; PCP Nurse Practitioner Family; Visit Provider Internal Medicine
DX: E87.70 Fluid overload, unspecified (principal); I13.2 Hypertensive heart and chronic kidney disease with heart failure and with stage 5 chronic kidney disease, or end stage renal disease; E11.22 Type 2 diabetes mellitus with diabetic chronic kidney disease; N18.6 End stage renal disease; I50.9 Heart failure, unspecified; Z99.2 Dependence on renal dialysis; E87.5 Hyperkalemia; D63.1 Anemia in chronic kidney disease; I25.10 Atherosclerotic heart disease of native coronary artery without angina pectoris; E03.9 Hypothyroidism, unspecified; R94.31 Abnormal electrocardiogram [ECG] [EKG]; G47.33 Obstructive sleep apnea (adult) (pediatric); M19.90 Unspecified osteoarthritis, unspecified site; E11.29 Type 2 diabetes mellitus with other diabetic kidney complication; R80.9 Proteinuria, unspecified; E55.9 Vitamin D deficiency, unspecified; Z20.822 Contact with and (suspected) exposure to COVID-19; Z79.899 Other long term (current) drug therapy; Z87.891 Personal history of nicotine dependence; Z83.3 Family history of diabetes mellitus; Z82.49 Family history of ischemic heart disease and other diseases of the circulatory system
CPT/HCPCS: 36415; 71046; 80048; 80053; 82948; 83690; 83735; 84132; 84484; 85025; 85610; 85730; 86706; 87340; 87635; 87637; 93005; 96372; 96374; 96375; 96376; 97110; 97161; 97165; 97530; 97535; 99285; A9270; G0257; G0378; J0360; J1644; J7030; Q5105

== ENCOUNTER 2023-03-11 07:20 | Emergency (ER) | payer MEDICARE, SELFPAY ==
--- NOTE | ~2023-03-11 | XR_ITS ---
EXAMINATION: XR chest 2V DATE: 03/11/2023 07:58 INDICATION: Dyspnea. Cough. TECHNIQUE: Frontal and lateral views of the chest were obtained. COMPARISON: Chest 2 views 02/24/2023 FINDINGS: There is a diffuse interstitial pattern, consistent with mild pulmonary edema. No pleural e ffusion or pneumothorax. Cardiomegaly is noted. IMPRESSION: 1. Mild pulmonary edema. 2. Cardiomegaly. Reviewed, dictated and finalized at location [facility]. [facility]
--- NOTE | 2023-03-11 07:25 | ECG_ITS ---
Measurements Intervals [place] Rate: 75 P: 77 [place]: 138 QRS: -40 QRSD: 122 T: 130 QT: 443 QTc: 498 Interpretive Statements SINUS RHYTHM POSSIBLE LEFT ATRIAL ENLARGEMENT [-0.1mV P WAVE IN V1/V2] MARKED LEFT AXIS DEVIATION [QRS AXIS < -30] POSSIBLE RIGHT VENTRICULAR CONDUCTION DELAY [RSR (QR) IN V1/V2] LEFT VENTRICULAR HYPERTROPHY AND ST-T CHANGE [VOLTAGE CRITERIA PLUS ST/T ABNORMALITY] COMPARED TO ECG 02/24/2023 00:13:23 NO SIGNIFICANT CHANGES Electronically Signed On 03-11-2023 16:35:04 HEALTH UNDERWRITER by Elio Hernandez M.D.
[2023-03-11 07:27] VITALS: BP 192/88; PULSE 66; RESP 20; TEMP 36.4; O2SAT 98
--- NOTE | 2023-03-11 07:42 | ED.GENADULT ---
HPI - General Adult General Chief complaint: Shortness of Breath/Dyspnea Stated complaint: cough, sob Time Seen by Provider: 03/11/23 07:24 History of Present Illness HPI narrative: 83-year-old female presenting to the emergency department for evaluation cough shortness breath sore throat body aches. Patient was at dialysis and left the dialysis due to her symptoms. Upon arrival to the emergency department patient denies any complaint. Related Data Home Medications Medication Instructions Recorded Confirmed carvedilol 12.5 mg tablet (Coreg) 12.5 mg PO Q12HR 10/14/22 02/24/23 hydralazine 25 mg tablet 25 mg PO Q8H 10/14/22 02/24/23 hydralazine 50 mg tablet 50 mg PO Q8H 10/14/22 02/24/23 acetaminophen 325 mg capsule 650 mg PO Q6H PRN Pain 02/24/23 02/24/23 Allergies Allergy/AdvReac Type Severity Reaction Status Date / Time benazepril Allergy Severe Swelling Verified 01/28/23 17:23 of Lip/Tongue/Throat lisinopril Allergy Severe Anaphylaxis Verified 01/28/23 17:23 Review of Systems Review of Systems: All systems reviewed & are unremarkable except as noted in HPI and below PMFSH Past Medical History Medical History Anemia Atherosclerotic heart disease of [place] coronary artery without angina pectoris Carotid artery disease Congestive heart failure Coronary artery disease Diastolic dysfunction End stage renal disease Essential (primary) hypertension Hypothyroidism, unspecified Obstructive sleep apnea Primary generalized (osteo)arthritis Proteinuria due to type 2 diabetes mellitus Renal osteodystrophy Screening mammogram, encounter for Type II diabetes mellitus with renal manifestations Vitamin D deficiency Surgical History Surgical History History of bunionectomy of left great toe History of right hip replacement Presence of left artificial knee joint Presence of right artificial knee joint Status post cataract extraction of both eyes with insertion of intraocular lens Status post creation of arteriovenous fistula Left upper arm Family History Family History Mother Diabetes mellitus Acute myocardial infarction Family history of diabetes mellitus in first degree relative Patient's mother is Hypertension Breast cancer Uterine cancer Sibling Family history of sarcoidosis Cerebrovascular accident Father , age 49 [place] Acute myocardial infarction Patient's mother is Hypertension Daughter Family history of lupus erythematosus Family history of arthritis Hypertension Social History Social History Social History: The patient has 9 children. 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 She is . She used to smoke many years ago. She smoked between 1-2 packs per cigarettes per day for 15 years prior to quitting she used to drink alcohol on occasion but has not done so in racing years. She denies illicit substance use. She dominates her daughter who lives in [place] to be the individual who would make decisions for her if she is unable. Code status: Full code (she states she would not want to be on a ventilator long-term) Smoking packs per day: 1 Smoking cigarettes per day: 20.0 Years smoked: 29 Smoking pack-years: 29.00 Smoking status: Former smoker Tobacco type: cigarettes Second hand tobacco smoke exposure: No Additional smoking assessment comments: 40 years ago Alcohol intake: never Substance use: never Substance use type: does not use Do You Feel Safe in your Home?: Yes Lack of Transportation: YES Lack of Food: Never True Current Housing: I Have Housing Concerned About Future Housing: No Difficulty Paying Gas/Electric Bills: No Diff
[2023-03-11 08:00] VITALS: BP 185/68; PULSE 74; RESP 16; TEMP 36.3; O2SAT 97
[2023-03-11 08:06] LABS: Basophils Percent Auto 0.4 % (0.2-1.2); Eosinophils Absolute Auto 0.1 K/mm3 (0-0.3); Eosinophils Percent Auto 2.3 % (0-4.4); Hematocrit 29.7 % (37.0-47.0); Hemoglobin 9.3 g/dL (12.0-15.0); Immature Granulocyte Absolute 0.03 K/mm3 (0.00-0.031); Immature Granulocyte Percent A 0.5 % (0-0.5); Lymphocytes Absolute Auto 0.67 K/mm3 (0.9-3.2); Lymphocytes Percent Auto 11.8 % (18.3-44.2); Mean Corpuscular HGB Conc 31.3 g/dl (32-36); Mean Corpuscular Hemoglobin 31.4 pg (26-34); Mean Corpuscular Volume 100.3 fl (80-100); Mean Platelet Volume 9.8 fl (7.4-10.4); Monocytes Absolute Auto 0.7 K/mm3 (0.1-0.6); Monocytes Percent Auto 11.6 % (2.6-8.5); Neutrophils Absolute Auto 4.2 K/mm3 (1.3-6.7); Neutrophils Percent Auto 73.4 % (45.5-73.1); Platelet Count Result 233 k/mm3 (150-375); Red Blood Count 2.96 M/mm3 (4.2-5.4); Red Cell Distribution Width 15.9 % (11.5-14.5); White Blood Count 5.7 K/mm3 (4.5-10.0)
[2023-03-11 08:10] LABS: Alanine Aminotransferase 32 U/L (6-35); Alkaline Phosphatase 106 U/L (38-126); Anion Gap 13 mmol/L (8-16); Aspartate Amino Transferase 45 U/L (14-36); Bilirubin,Total 0.8 mg/dL (0.2-1.3); Blood Urea Nitrogen 45 mg/dL (7-17); Calcium 8.7 mg/dL (8.4-10.2); Carbon Dioxide 23 mmol/L (22-30); Chloride 100 mmol/L (98-107); Estimated CRCL calculation 9 ml/min; Estimated Glomerular Filt Rate 11; Glucose 122 mg/dL (65-110); Potassium 4.3 mmol/L (3.4-5.0); Sodium 136 mmol/L (137-145)
[2023-03-11 08:16] LABS: INR 1.1; Prothrombin Time 14.6 Seconds (11.1-14.7)
[2023-03-11 08:17] LABS: Partial Thromboplastin Time 39.9 SECONDS (22.3-36.8)
[2023-03-11 08:18] LABS: NT Pro B Type Natriuretic Pept > 30000 pg/mL (19.9-100); Troponin I < 0.012 ng/mL (0.000-0.034)
[2023-03-11 08:30] LABS: Influenza A QL RT-PCR Negative (Negative); Influenza B QL RT-PCR Negative (Negative); SARS-CoV-2 RNA PCR Negative (Negative)
[2023-03-11 08:54] LABS: Strep Group A RT-PCR NOT DETECTED (Negative)
[2023-03-11 09:00] VITALS: BP 190/68; PULSE 77; RESP 16; O2SAT 98
[2023-03-11 09:45] VITALS: BP 192/88; PULSE 80; RESP 20; TEMP 36.7; O2SAT 98
== END 2023-03-11 09:45 ==
PROVIDERS: Emergency Provider Emergency Medicine; PCP Nurse Practitioner Family
DX: R06.02 Shortness of breath (principal); Z20.822 Contact with and (suspected) exposure to COVID-19; E11.22 Type 2 diabetes mellitus with diabetic chronic kidney disease; I13.2 Hypertensive heart and chronic kidney disease with heart failure and with stage 5 chronic kidney disease, or end stage renal disease; N18.6 End stage renal disease; I50.9 Heart failure, unspecified; N25.0 Renal osteodystrophy; I25.10 Atherosclerotic heart disease of native coronary artery without angina pectoris; E03.9 Hypothyroidism, unspecified; E55.9 Vitamin D deficiency, unspecified; G47.33 Obstructive sleep apnea (adult) (pediatric); M19.90 Unspecified osteoarthritis, unspecified site; Z99.2 Dependence on renal dialysis; Z96.641 Presence of right artificial hip joint; Z96.653 Presence of artificial knee joint, bilateral; Z96.1 Presence of intraocular lens; Z98.42 Cataract extraction status, left eye; Z98.41 Cataract extraction status, right eye; Z87.891 Personal history of nicotine dependence; I51.7 Cardiomegaly; R94.31 Abnormal electrocardiogram [ECG] [EKG]
CPT/HCPCS: 36415; 71046; 80053; 83880; 84484; 85025; 85610; 85730; 87636; 87651; 93005; 99284

== ENCOUNTER 2023-03-15 12:18 | Inpatient (IN) | payer MEDICARE, SELFPAY ==
[2023-03-15] VITALS (10 sets, daily range): BP systolic 119–150; BP diastolic 39–62; PULSE 55–61; RESP 13–20; TEMP 36.2–36.4; O2SAT 76–100; BMI 29.8
--- NOTE | ~2023-03-15 | CT_ITS ---
EXAMINATION: CT chest abdomen pelvis wo con DATE: 03/15/2023 13:52 INDICATION: Cough, fever and abdominal pain TECHNIQUE: Computed tomography (CT) of the chest, abdomen, and pelvis was performed without intraveno us contrast. Automated exposure control and iterative reconstruction technique were employed. The dos e-length product was 1213.58 mGy-cm. COMPARISON: None FINDINGS: CHEST CT: Multiple tiny nodules with tree-in-bud pattern in the inferior right upper lobe and more subtly in th e lingula and right lower lobe consistent with endobronchial spread of disease and likely pneumonia. Small dependently layering right pleural effusion with adjacent passive atelectasis in the posterior right lower lobe. Discoid atelectasis in the right middle lobe and left lower lobe. Small calcified r ight lower lobe nodule consistent with old granulomatous disease. Medically. Atherosclerotic coronary artery calcification. Aortic valve calcification. Thoracic aorta is normal in caliber. No pericardia l effusion. No pathologically enlarged thoracic lymphadenopathy. Severe spondylosis at the lower cerv ical and upper thoracic spine. ABDOMEN/PELVIS CT: Multiple scattered hepatic and splenic calcific location consistent with old granulomatous disease. M ultiple rim calcified gallstones in the otherwise normal-appearing gallbladder. Pancreas, bilateral a drenal glands are normal. There is calcified atherosclerosis of the aorta and many of the other arter ies including the renal arteries at the bilateral renal courtney. Kidneys are otherwise unremarkable. [place] els are unremarkable with no obstruction. Portions of the bladder, uterus and adnexal regions are obs cured by metallic streak artifact from a right total hip arthroplasty. Small amount of scattered asci aniket in the abdomen and pelvis no abscess or free intraperitoneal gas. No pathologically enlarged abdo murali or pelvic lymphadenopathy. Extensive dependent predominant body wall edema at the chest, abdome n and pelvis. Mild lumbar levocurvature with severe spondylosis. Advanced osteoarthritis at the left hip with likely associated remodeling and loss of bone stock at the cephalad aspect of the left femor al head. IMPRESSION: 1. Numerous tiny nodules with tree-in-bud pattern in the right upper lobe and to lesser degree right lower lobe and lingula consistent with nonspecific endobronchial spread of disease such as pneumonia. 2. Small right pleural effusion. 3. Cardiomegaly. 4. Cholelithiasis. 5. Nonspecific small amount of ascites in the abdomen and pelvis. Reviewed, dictated and finalized at location A. 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 Numerous tiny nodules with tree-in-bud pattern in the right upper lobe and t o lesser degree right lower lobe and lingula consistent with nonspecific endobr onchial spread of disease such as pneumonia. 2. Small right pleural effusion. 3. Cardiomegaly. 4. Cholelithiasis. 5. Nonspecific small amount of ascites in the abdomen and pelvis.
--- NOTE | 2023-03-15 12:56 | ED.GENADULT ---
HPI - General Adult General Chief complaint: Abdominal Pain Stated complaint: altered/abdominal pain Time Seen by Provider: 03/15/23 12:55 History of Present Illness HPI narrative: Patient is an 83-year-old female sent here from her facility with abdominal pain and episode of vomiting. She states that the abdominal pain is diffuse, associated with some diarrhea and began yesterday. She additionally notes a nagging cough which has been present since right after [place]. She denies any fever chills. Of note she is a dialysis patient, last ran 2 days ago, is scheduled to run tomorrow on her normal Tuesday, Tuesday, Tuesday schedule. She denies any associated chest pain. She does make urine, urinates approximately 4 to 5 times a day, 80 normal volume of stream. She has been on dialysis since last year due to either hypertension or diabetes. She runs at [facility]. Related Data Home Medications Medication Instructions Recorded Confirmed carvedilol 12.5 mg tablet (Coreg) 12.5 mg PO Q12HR 10/14/22 02/24/23 hydralazine 25 mg tablet 25 mg PO Q8H 10/14/22 02/24/23 hydralazine 50 mg tablet 50 mg PO Q8H 10/14/22 02/24/23 acetaminophen 325 mg capsule 650 mg PO Q6H PRN Pain 02/24/23 02/24/23 Allergies Allergy/AdvReac Type Severity Reaction Status Date / Time benazepril Allergy Severe Swelling Verified 01/28/23 17:23 of Lip/Tongue/Throat lisinopril Allergy Severe Anaphylaxis Verified 01/28/23 17:23 Review of Systems Review of Systems: All systems reviewed & are unremarkable except as noted in HPI and below PMFSH Past Medical History Medical History Anemia Atherosclerotic heart disease of [place] coronary artery without angina pectoris Carotid artery disease Congestive heart failure Coronary artery disease Diastolic dysfunction End stage renal disease Essential (primary) hypertension Hypothyroidism, unspecified Obstructive sleep apnea Primary generalized (osteo)arthritis Proteinuria due to type 2 diabetes mellitus Renal osteodystrophy Screening mammogram, encounter for Type II diabetes mellitus with renal manifestations Vitamin D deficiency Surgical History Surgical History History of bunionectomy of left great toe History of right hip replacement Presence of left artificial knee joint Presence of right artificial knee joint Status post cataract extraction of both eyes with insertion of intraocular lens Status post creation of arteriovenous fistula Left upper arm Family History Family History Mother Diabetes mellitus Acute myocardial infarction Family history of diabetes mellitus in first degree relative Patient's mother is Hypertension Breast cancer Uterine cancer Sibling Family history of sarcoidosis Cerebrovascular accident Father , age 49 [place] Acute myocardial infarction Patient's mother is Hypertension Daughter Family history of lupus erythematosus Family history of arthritis Hypertension Social History Social History Social History: The patient has 9 children. 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 She is . She used to smoke many years ago. She smoked between 1-2 packs per cigarettes per day for 15 years prior to quitting she used to drink alcohol on occasion but has not done so in racing years. She denies illicit substance use. She dominates her daughter who lives in [place] to be the individual who would make decisions for her if she is unable. Code status: Full code (she states she would not want to be on a ventilator long-term) Smoking packs per day: 1 Smoking cigarettes per day: 20.0 Years smoked: 29 Smoking pack-years: 29.00 Smoking status: Former
--- NOTE | 2023-03-15 12:59 | ECG_ITS ---
Measurements Intervals [place] Rate: 58 P: 77 MT: 140 QRS: -44 QRSD: 124 T: 265 QT: 499 QTc: 490 Interpretive Statements SINUS BRADYCARDIA LEFT AXIS DEVIATION POSSIBLE LEFT ATRIAL ENLARGEMENT INTRAVENTRICULAR CONDUCTION DELAY BORDERLINE R WAVE PROGRESSION, ANTERIOR LEADS LEFT VENTRICULAR HYPERTROPHY AND ST-T CHANGE BORDERLINE ST-T WAVE ABNORMALITY- ANTERLAT/INF LEADS BASELINE ARTIFACT- V1-V2 BORDERLINE ECG COMPARED TO ECG 03/11/2023 07:31:04 SINUS BRADYCARDIA NOW PRESENT Electronically Signed On 03-15-2023 14:21:42 TRUST OFFICER by Ashutosh Jones D.O.
[2023-03-15 13:15] LABS: Glucose Point of Care 182 mg/dl (65-105)
--- NOTE | 2023-03-15 13:40 | PC.NURSE ---
Unable to initiate IV access. Jeannette Counts called for ultrasound support.
--- NOTE | 2023-03-15 13:43 | PC.NURSE ---
Pt taken to CT at this time.
--- NOTE | 2023-03-15 13:54 | PC.NURSE ---
Pt returned to room 6 at this time
[2023-03-15 14:41] LABS: Influenza A QL RT-PCR Negative (Negative); Influenza B QL RT-PCR Negative (Negative); RSV RNA, RT-PCR Negative (Negative); SARS-CoV-2 RNA PCR Negative (Negative)
[2023-03-15 14:48] LABS: Basophils Percent Auto 0.5 % (0.2-1.2); Eosinophils Absolute Auto 0.1 K/mm3 (0-0.3); Eosinophils Percent Auto 0.8 % (0-4.4); Hematocrit 29.8 % (37.0-47.0); Hemoglobin 8.9 g/dL (12.0-15.0); Immature Granulocyte Absolute 0.06 K/mm3 (0.00-0.031); Lymphocytes Absolute Auto 0.67 K/mm3 (0.9-3.2); Lymphocytes Percent Auto 11.2 % (18.3-44.2); Mean Corpuscular HGB Conc 29.9 g/dl (32-36); Mean Corpuscular Hemoglobin 31.3 pg (26-34); Mean Corpuscular Volume 104.9 fl (80-100); Mean Platelet Volume 10.2 fl (7.4-10.4); Monocytes Absolute Auto 0.5 K/mm3 (0.1-0.6); Monocytes Percent Auto 8.3 % (2.6-8.5); Neutrophils Absolute Auto 4.7 K/mm3 (1.3-6.7); Neutrophils Percent Auto 78.2 % (45.5-73.1); Platelet Count Result 243 k/mm3 (150-375); Red Blood Count 2.84 M/mm3 (4.2-5.4); Red Cell Distribution Width 15.7 % (11.5-14.5)
[2023-03-15 14:57] LABS: INR 1.2; Prothrombin Time 15.4 Seconds (11.1-14.7)
[2023-03-15 14:58] LABS: Partial Thromboplastin Time 30.7 SECONDS (22.3-36.8)
[2023-03-15 15:07] LABS: Anisocytosis 2+ (NORMAL); Macrocytosis 1+ (NORMAL); Microcytosis 2+ (NORMAL); Platelet Estimate Adequate (Adequate)
[2023-03-15 15:08] LABS: Hypochromasia 1+ (NORMAL); Schistocytes None Seen (NORMAL)
[2023-03-15 15:12] LABS: Alanine Aminotransferase 27 U/L (6-35); Albumin Level 3.7 g/dL (3.5-5.1); Alkaline Phosphatase 64 U/L (38-126); Anion Gap 8 mmol/L (8-16); Aspartate Amino Transferase 49 U/L (14-36); Blood Urea Nitrogen 33 mg/dL (7-17); Calcium 8.6 mg/dL (8.4-10.2); Carbon Dioxide 28 mmol/L (22-30); Chloride 100 mmol/L (98-107); Estimated CRCL calculation 12 ml/min; Estimated Glomerular Filt Rate 12; Glucose 142 mg/dL (65-110); Lipase 160 U/L (23-300); Potassium 4.7 mmol/L (3.4-5.0); Sodium 136 mmol/L (137-145)
[2023-03-15 15:17] LABS: Troponin I 0.015 ng/mL (0.000-0.034)
--- NOTE | 2023-03-15 15:41 | PC.NURSE ---
EDP Dr. Akhtar reports no blood cultures needed
[2023-03-15] MEDS: CEFEPIME 2 GM/NS 50 ML 2 GM/50 ML BAG IVPB (15:44)
[2023-03-15 16:15] LABS: Appearance Urine Turbid (Clear); Bacteria Urine 4+ /hpf; Bilirubin Urine 1+ (Negative); Blood Urine Negative (Negative); Color Urine Dark Yellow (Yellow); Glucose Urine UA Negative (Negative); Ketones Urine Trace mg/dL (Negative); Leukocyte Esterase Ur 2+ LEU/UL (Negative); Need Manual Microscopic Reviewed; Nitrate Urine Negative (Negative); Non Pathogenic Casts >20; Protein Urine 4+ mg/dL (Negative); RBC Urine 0-2 /hpf (0-2); Specific Grav Ur 1.021 (1.001-1.035); Squamous Epithelial Cell Urine Many /hpf (Few); WBC Urine >100 /hpf
[2023-03-15 16:19] LABS: Add Urine Microscopic? YES
[2023-03-15] MEDS: AZITHROMYCIN 500 MG/NS 250 ML 500 MG/250 ML BAG 250 MG IVPB (16:22)
[2023-03-15] MEDS: VANCOMYCIN 1,750 MG/NS 500 ML 1,750 MG/500 ML BAG 250 MG IVPB (17:38)
[2023-03-15 18:10] LABS: Troponin I 0.014 ng/mL (0.000-0.034)
[2023-03-15 19:10] LABS: MRSA (PCR) NOT DETECTED (NOT DETECTE)
--- NOTE | 2023-03-15 20:44 | PM.IMHP ---
H&P: HPI History of Present Illness Date/Time: 03/15/23 20:44 Chief Complaint: Patient sent from the [place] [facility] for evaluation with shortness of breath, cough, abdominal pain and one episode of vomiting Narrative: 83 years old female with ESRD on hemodialysis and chronic medical issues is complaining of a nagging cough since which is getting worse. She also started to have some shortness of breath. In one for her hemodialysis sessions last week, she complained of shortness of breath as well. She denies any chest pain. She was sent for evaluation as she was complaining of abdominal pain off and on and had one episode of vomiting. Workup ordered in the ER with CT scans of chest, abdomen and pelvis which showed finding consistent with pneumonia. She normally does not require any oxygen, but requiring 1-2 L oxygen via nasal cannula upon admission. She is on 3 times a week Tuesday hemodialysis schedule. She also was found to have UTI. She started on IV antibiotics and being admitted to medical unit for close monitoring and hemodialysis. Review of Systems Review of Systems: 14 systems were reviewed with pertinent positives and negatives per HPI. Except as documented in the HPI/progress notes, all other systems were reviewed and are negative. All systems reviewed & are unremarkable except as noted in HPI and below PMFSH Past Medical History Medical History Anemia Atherosclerotic heart disease of [place] coronary artery without angina pectoris Carotid artery disease Congestive heart failure Coronary artery disease Diastolic dysfunction End stage renal disease Essential (primary) hypertension Hypothyroidism, unspecified Obstructive sleep apnea Primary generalized (osteo)arthritis Proteinuria due to type 2 diabetes mellitus Renal osteodystrophy Screening mammogram, encounter for Type II diabetes mellitus with renal manifestations Vitamin D deficiency Surgical History Surgical History History of bunionectomy of left great toe History of right hip replacement Presence of left artificial knee joint Presence of right artificial knee joint Status post cataract extraction of both eyes with insertion of intraocular lens Status post creation of arteriovenous fistula Left upper arm Family History Family History Mother Diabetes mellitus Acute myocardial infarction Family history of diabetes mellitus in first degree relative Patient's mother is Hypertension Breast cancer Uterine cancer Sibling Family history of sarcoidosis Cerebrovascular accident Father , age 49 [place] Acute myocardial infarction Patient's mother is Hypertension Daughter Family history of lupus erythematosus Family history of arthritis Hypertension Social History Social History Social History: The patient has 9 children. 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 She is . She used to smoke many years ago. She smoked between 1-2 packs per cigarettes per day for 15 years prior to quitting she used to drink alcohol on occasion but has not done so in racing years. She denies illicit substance use. She dominates her daughter who lives in [place] to be the individual who would make decisions for her if she is unable. Code status: Full code (she states she would not want to be on a ventilator long-term) Smoking packs per day: 1 Smoking cigarettes per day: 20.0 Years smoked: 29 Smoking pack-years: 29.00 Smoking status: Former smoker Tobacco type: cigarettes Second hand tobacco smoke exposure: No Additional smoking assessment comments: 40 years ago Alcohol intake: never Substance use: never Substance use type: does not use Do You Feel S
--- NOTE | 2023-03-15 21:28 | ADMGEN ---
This patient, Lilian Mandel, was admitted to Medical Room 345-. Patient/family oriented to hospital policies and general routines including ID bracelet, bed and alarms, visiting hours, pain management, procedures, bathroom and other care routines, personal items, smoking policy, room service/diet, and visiting hours. Information on how to activate the Rapid Response Team has been discussed. Patient/Family are encouraged to report perceived risks to care and to ask questions if they do not understand what they are told or what they should do.
[2023-03-16] VITALS (24 sets, daily range): BP systolic 106–163; BP diastolic 41–70; PULSE 61–76; RESP 20–22; TEMP 36.6–37.2; O2SAT 96–100
[2023-03-16] MEDS: hydrALAZINE HCL 25 MG TABLET PO ×3 (05:30→21:03)
[2023-03-16] MEDS: hydrALAZINE HCL 50 MG TABLET PO ×3 (05:30→21:03)
[2023-03-16 05:52] LABS: Basophils Percent Auto 0.6 % (0.2-1.2); Eosinophils Absolute Auto 0.2 K/mm3 (0-0.3); Eosinophils Percent Auto 3.1 % (0-4.4); Hematocrit 31.7 % (37.0-47.0); Hemoglobin 9.3 g/dL (12.0-15.0); Immature Granulocyte Absolute 0.07 K/mm3 (0.00-0.031); Immature Granulocyte Percent A 1.1 % (0-0.5); Lymphocytes Absolute Auto 1.06 K/mm3 (0.9-3.2); Lymphocytes Percent Auto 17.1 % (18.3-44.2); Mean Corpuscular HGB Conc 29.3 g/dl (32-36); Mean Corpuscular Hemoglobin 30.9 pg (26-34); Mean Corpuscular Volume 105.3 fl (80-100); Mean Platelet Volume 9.2 fl (7.4-10.4); Monocytes Absolute Auto 0.7 K/mm3 (0.1-0.6); Monocytes Percent Auto 11.3 % (2.6-8.5); Neutrophils Absolute Auto 4.2 K/mm3 (1.3-6.7); Neutrophils Percent Auto 66.8 % (45.5-73.1); Platelet Count Result 214 k/mm3 (150-375); Red Blood Count 3.01 M/mm3 (4.2-5.4); Red Cell Distribution Width 15.5 % (11.5-14.5); White Blood Count 6.2 K/mm3 (4.5-10.0)
[2023-03-16 06:02] LABS: Anion Gap 10 mmol/L (8-16); Blood Urea Nitrogen 38 mg/dL (7-17); Calcium 8.5 mg/dL (8.4-10.2); Carbon Dioxide 25 mmol/L (22-30); Chloride 104 mmol/L (98-107); Estimated CRCL calculation 9 ml/min; Estimated Glomerular Filt Rate 10; Glucose 113 mg/dL (65-110); Potassium 4.1 mmol/L (3.4-5.0); Sodium 139 mmol/L (137-145)
[2023-03-16 06:12] LABS: Troponin I < 0.012 ng/mL (0.000-0.034)
[2023-03-16 07:24] LABS: Vancomycin Random 15.1 ug/mL (10-20)
[2023-03-16 07:49] LABS: Anisocytosis 1+ (NORMAL); Burr Cells 1+ (NORMAL); Ovalocytes 1+ (NORMAL); Platelet Estimate Adequate (Adequate); Schistocytes None Seen (NORMAL)
--- NOTE | 2023-03-16 09:00 | PC.NURSE ---
Patient off of unit to dialysis
[2023-03-16] MEDS: EPOETIN ALFA-EPBX 10,000 UNITS/ML VIAL 10000 UNITS IV PUSH (11:28)
--- NOTE | 2023-03-16 12:33 | PM.CNNEP ---
Assessment and Plan Assessment and plan (1) End stage renal disease: Code(s): N18.6 - End stage renal disease Status: Chronic Assessment and Plan: HD today continue M/W/F dialysis schedule during hospital stay follow electrolytes, volume status, and clearance (2) Acute hypoxemic respiratory failure: Code(s): J96.01 - Acute respiratory failure with hypoxia Status: Acute Assessment and Plan: as noted on admission suspect secondary to #3 based on imaging to date oxygen support as needed continue therapy as outlined (3) Right lower lobe pneumonia: Qualifiers: Pneumonia type: due to unspecified organism Qualified Code(s): J18.9 - Pneumonia, unspecified organism Code(s): J18.9 - Pneumonia, unspecified organism Status: Acute Assessment and Plan: as noted by admission CT scan follow culture data on antibiotics monitor respiratory status (4) Urinary tract infection: Code(s): N39.0 - Urinary tract infection, site not specified Status: Acute Assessment and Plan: admission urinalysis suggestive possible etiology of abdominal pain(?) follow-up on urine culture results on antibiotics (5) Essential (primary) hypertension: Code(s): I10 - Essential (primary) hypertension Status: Chronic Assessment and Plan: reasonable control at this time resume home medications and adjust as needed (6) Anemia: Qualifiers: Anemia type: due to chronic kidney disease Chronic kidney disease stage: stage 4 (severe) Qualified Code(s): N18.4 - Chronic kidney disease, stage 4 (severe); D63.1 - Anemia in chronic kidney disease Code(s): D64.9 - Anemia, unspecified Status: Chronic Assessment and Plan: due to ESRD Epogen with HD follow trend of H/H (7) Diabetes: Code(s): E11.9 - Type 2 diabetes mellitus without complications Status: Chronic Assessment and Plan: reported history on no medications -- presumably diet controlled now... follow sugars intermittently I will continue to follow the patient with you while she remains hospitalized and make further recommendations as needed. Thank you for allowing me to participate in the care this patient. History of Present Illness Reason for Consult Consult date: 03/16/23 Reason for consult: end stage renal disease Chief Complaint Chief complaint: Pneumonia/UTI/Hypoxia History of Present Illness Narrative: The patient is an 83-year-old female with a past medical history as outlined below who presented to [facility] Emergency room with complaints of abdominal pain, emesis, cough, and shortness of breath. The patient reports that she has been having a ongoing cough since [place] which seems to be getting worse. Furthermore in association with a cough, she has had some shortness of breath. She reported this to dialysis nursing staff and attempt to compensate for this issue, they tried to be little bit more aggressive with fluid removal on the assumption that this was related to fluid retention. It is difficult to say from the patient's perspective if more aggressive fluid removal actually improved her shortness of breath or cough. Along with these symptoms, she reported on and off abdominal pain for last few days and had an episode of vomiting the day admission. Her [facility] in to the emergency room for further assessment given these acute and chronic complaints. Workup and evaluation in the emergency room demonstrated the patient to be hemodynamically stable but with noted hypoxia. She required one 2 L of supplemental oxygen to improve her O2 saturations. Routine blood test demonstrated labs consistent with her known history of end-stage renal disease and her urinalysis was somewhat suggestive of urinary tract infection. A CT scan of her chest abdomen pelvis was significant for pneu
[2023-03-16] MEDS: AZITHROMYCIN 250 MG TABLET 500 MG PO (14:21)
--- NOTE | 2023-03-16 15:54 | P.PNIM_ITS ---
Progress Note: A&P Assessment and Plan (1) Right lower lobe pneumonia: Qualifiers: Pneumonia type: due to unspecified organism Qualified Code(s): J18.9 - Pneumonia, unspecified organism Code(s): J18.9 - Pneumonia, unspecified organism Status: Acute Assessment and Plan: * CT scan of chest and clinical findings consistent with right-sided pneumonia * continue cefepime and azithromycin * requiring 3 L O2 (2) Acute hypoxemic respiratory failure: Code(s): J96.01 - Acute respiratory failure with hypoxia Status: Acute Assessment and Plan: * requiring 3L O2, work to wean or may need O2 eval (3) Acute urinary tract infection: Code(s): N39.0 - Urinary tract infection, site not specified Status: Acute Assessment and Plan: * UA culture pending * continue cefepime (4) ESRD on hemodialysis: Code(s): N18.6 - End stage renal disease; Z99.2 - Dependence on renal dialysis Status: Chronic Assessment and Plan: * M/W/F hemodialysis * nephrology following (5) Obstructive sleep apnea: Code(s): G47.33 - Obstructive sleep apnea (adult) (pediatric) Status: Chronic Assessment and Plan: * CPAP home settings ordered (6) Essential (primary) hypertension: Code(s): I10 - Essential (primary) hypertension Status: Chronic Assessment and Plan: * continue home regimen (7) Atherosclerotic heart disease of [place] coronary artery without angina pec toris: Code(s): I25.10 - Atherosclerotic heart disease of [place] coronary artery without angina pectoris Status: Acute (8) Anemia: Qualifiers: Anemia type: due to chronic kidney disease Chronic kidney disease stag e: stage 4 (severe) Qualified Code(s): N18.4 - Chronic kidney disease, stage 4 (severe); D63.1 - Anemia in chronic kidney disease Code(s): D64.9 - Anemia, unspecified Status: Chronic Assessment and Plan: * H&H 9.3.7 * continue to monitor (9) Type II diabetes mellitus with renal manifestations: Qualifiers: Diabetes mellitus salvage determiner insulin use: without care home use Diabetes mellitus complication detail: with chronic kidney disease Chronic kidney disease stage: stage 4 (severe) Qualified Code(s): E11.22 - Type 2 diabetes mellitus with diabetic chronic kidney disease; N18.4 - Chronic kidney disease, stage 4 (severe) Code(s): E11.29 - Type 2 diabetes mellitus with other diabetic kidney complication Status: Chronic Assessment and Plan: * unsure of home regimen * accuchecks, sliding scale and hypoglycemic protocol initiated (10) Diastolic dysfunction: Code(s): I51.89 - Other ill-defined heart diseases Status: Acute (11) Coronary artery disease: Code(s): I25.10 - Atherosclerotic heart disease of [place] coronary artery without angina pectoris Status: Acute (12) Decreased mobility: Code(s): R26.89 - Other abnormalities of gait and mobility Status: Acute Assessment and Plan: * PT/OT eval ordered Subjective Date/time seen: 03/16/23 15:54 Interval history: Patient is in no acute distress after dialysis, denies any pain or SOB. She is still requiring O2 by NC, which is not her baseline. Nephrology consulted for dialysis needs. Continue to treat pneumonia and UTI with cefepime and Zithromax. UA culture pending. Review of Systems Review of Systems: All systems reviewed & are unremarkable except as noted in HPI and below Ex
--- NOTE | 2023-03-16 15:54 | PM.IMPN ---
Progress Note: A&P Assessment and Plan (1) Right lower lobe pneumonia: Qualifiers: Pneumonia type: due to unspecified organism Qualified Code(s): J18.9 - Pneumonia, unspecified organism Code(s): J18.9 - Pneumonia, unspecified organism Status: Acute Assessment and Plan: CT scan of chest and clinical findings consistent with right-sided pneumonia continue cefepime and azithromycin requiring 3 L O2 (2) Acute hypoxemic respiratory failure: Code(s): J96.01 - Acute respiratory failure with hypoxia Status: Acute Assessment and Plan: requiring 3L O2, work to wean or may need O2 eval (3) Acute urinary tract infection: Code(s): N39.0 - Urinary tract infection, site not specified Status: Acute Assessment and Plan: UA culture pending continue cefepime (4) ESRD on hemodialysis: Code(s): N18.6 - End stage renal disease; Z99.2 - Dependence on renal dialysis Status: Chronic Assessment and Plan: M/W/F hemodialysis nephrology following (5) Obstructive sleep apnea: Code(s): G47.33 - Obstructive sleep apnea (adult) (pediatric) Status: Chronic Assessment and Plan: CPAP home settings ordered (6) Essential (primary) hypertension: Code(s): I10 - Essential (primary) hypertension Status: Chronic Assessment and Plan: continue home regimen (7) Atherosclerotic heart disease of [place] coronary artery without angina pectoris: Code(s): I25.10 - Atherosclerotic heart disease of [place] coronary artery without angina pectoris Status: Acute (8) Anemia: Qualifiers: Anemia type: due to chronic kidney disease Chronic kidney disease stage: stage 4 (severe) Qualified Code(s): N18.4 - Chronic kidney disease, stage 4 (severe); D63.1 - Anemia in chronic kidney disease Code(s): D64.9 - Anemia, unspecified Status: Chronic Assessment and Plan: H&H 9.331.7 continue to monitor (9) Type II diabetes mellitus with renal manifestations: Qualifiers: Diabetes mellitus termite exterminator helper insulin use: without care home use Diabetes mellitus complication detail: with chronic kidney disease Chronic kidney disease stage: stage 4 (severe) Qualified Code(s): E11.22 - Type 2 diabetes mellitus with diabetic chronic kidney disease; N18.4 - Chronic kidney disease, stage 4 (severe) Code(s): E11.29 - Type 2 diabetes mellitus with other diabetic kidney complication Status: Chronic Assessment and Plan: unsure of home regimen accuchecks, sliding scale and hypoglycemic protocol initiated (10) Diastolic dysfunction: Code(s): I51.89 - Other ill-defined heart diseases Status: Acute (11) Coronary artery disease: Code(s): I25.10 - Atherosclerotic heart disease of [place] coronary artery without angina pectoris Status: Acute (12) Decreased mobility: Code(s): R26.89 - Other abnormalities of gait and mobility Status: Acute Assessment and Plan: PT/OT eval ordered Subjective Date/time seen: 03/16/23 15:54 Interval history: Patient is in no acute distress after dialysis, denies any pain or SOB. She is still requiring O2 by NC, which is not her baseline. Nephrology consulted for dialysis needs. Continue to treat pneumonia and UTI with cefepime and Zithromax. UA culture pending. Review of Systems Review of Systems: All systems reviewed & are unremarkable except as noted in HPI and below Exam Narrative: General: Patient sitting up in bed, no distress, well-appearing Head/eyes: Atraumatic, EOMI, PERRLA ENT: Moist mucous membranes Neck: Supple CVS: RRR, S1 + S2, no murmurs Respiratory: Bilaterally decreased air entry in both lung mc, symmetric chest expansion Abdomen: Soft, non-tender, bowel sounds present, no organomegaly Extremities: No clubbing, no cyanosis, no edema, no calf tenderness Skin: Warm, dry, no ja
[2023-03-16] MEDS: CEFEPIME 1 GM/NS 50 ML 1 GM/50 ML BAG IVPB (16:49)
[2023-03-16 17:26] LABS: Glucose Point of Care 128 mg/dl (65-105)
[2023-03-16] MEDS: carvediloL 12.5 MG TABLET PO (21:03)
[2023-03-16] MEDS: DOCUSATE SODIUM 100 MG CAPSULE PO (21:03)
[2023-03-16 21:15] LABS: Glucose Point of Care 140 mg/dl (65-105)
[2023-03-17] VITALS (10 sets, daily range): BP systolic 136–151; BP diastolic 40–61; PULSE 55–69; RESP 16–22; TEMP 36.8–37; O2SAT 96–100
[2023-03-17] MEDS: hydrALAZINE HCL 25 MG TABLET PO ×3 (05:15→21:36)
[2023-03-17] MEDS: hydrALAZINE HCL 50 MG TABLET PO ×3 (05:15→21:36)
[2023-03-17 06:00] LABS: Basophils Absolute Auto 0.1 K/mm3 (0.0-0.1); Basophils Percent Auto 0.8 % (0.2-1.2); Eosinophils Absolute Auto 0.2 K/mm3 (0-0.3); Eosinophils Percent Auto 3.3 % (0-4.4); Hematocrit 29.6 % (37.0-47.0); Hemoglobin 8.7 g/dL (12.0-15.0); Immature Granulocyte Absolute 0.11 K/mm3 (0.00-0.031); Immature Granulocyte Percent A 1.7 % (0-0.5); Lymphocytes Absolute Auto 1.06 K/mm3 (0.9-3.2); Lymphocytes Percent Auto 16.1 % (18.3-44.2); Mean Corpuscular HGB Conc 29.4 g/dl (32-36); Mean Corpuscular Hemoglobin 30.7 pg (26-34); Mean Corpuscular Volume 104.6 fl (80-100); Mean Platelet Volume 9.4 fl (7.4-10.4); Monocytes Absolute Auto 0.8 K/mm3 (0.1-0.6); Monocytes Percent Auto 11.6 % (2.6-8.5); Neutrophils Absolute Auto 4.4 K/mm3 (1.3-6.7); Neutrophils Percent Auto 66.5 % (45.5-73.1); Platelet Count Result 180 k/mm3 (150-375); Red Blood Count 2.83 M/mm3 (4.2-5.4); Red Cell Distribution Width 15.4 % (11.5-14.5); White Blood Count 6.6 K/mm3 (4.5-10.0)
--- NOTE | 2023-03-17 06:09 | PCRCNOTE ---
A cpap machine is ordered for this patient to wear. When asked, patient stated she does not wear a cpap mask at home, nor does she have sleep apnea.
[2023-03-17 06:29] LABS: Anion Gap 7 mmol/L (8-16); Blood Urea Nitrogen 24 mg/dL (7-17); Calcium 8.1 mg/dL (8.4-10.2); Carbon Dioxide 29 mmol/L (22-30); Chloride 101 mmol/L (98-107); Estimated CRCL calculation 12 ml/min; Estimated Glomerular Filt Rate 15; Glucose 90 mg/dL (65-110); Magnesium 1.9 mg/dL (1.6-2.3); Phosphorus 3.5 mg/dL (2.5-4.5); Potassium 3.9 mmol/L (3.4-5.0); Sodium 137 mmol/L (137-145)
[2023-03-17 06:32] LABS: Anisocytosis 1+ (NORMAL); Hypochromasia 2+ (NORMAL); Ovalocytes 1+ (NORMAL); Platelet Estimate Adequate (Adequate)
[2023-03-17 06:33] LABS: Schistocytes None Seen (NORMAL)
[2023-03-17 07:11] LABS: Hemoglobin A1C 5.2 % (<5.7)
[2023-03-17 08:38] LABS: Glucose Point of Care 133 mg/dl (65-105)
[2023-03-17] MEDS: NIFEdipine 30 MG TAB.ER.24 90 MG PO (08:40)
[2023-03-17] MEDS: carvediloL 12.5 MG TABLET PO ×2 (08:40→20:15)
[2023-03-17] MEDS: FUROSEMIDE 40 MG TABLET PO (08:40)
[2023-03-17] MEDS: AZITHROMYCIN 250 MG TABLET 500 MG PO (08:41)
[2023-03-17] MEDS: DOCUSATE SODIUM 100 MG CAPSULE PO ×2 (08:41→20:15)
--- NOTE | 2023-03-17 10:53 | P.PNIM_ITS ---
Progress Note: A&P Assessment and Plan (1) Acute hypoxemic respiratory failure: Code(s): J96.01 - Acute respiratory failure with hypoxia Status: Acute Assessment and Plan: 03/17/23: * Likely due to Pneumonia * O2 saturation 76% on room air when presented to the hospital, patient was placed on NC * Currently on 2L NC with oxygen saturation of 100%, continue to wean for oxygen saturation greater than 92% (2) Right lower lobe pneumonia: Qualifiers: Pneumonia type: due to unspecified organism Qualified Code(s): J18.9 - Pneumonia, unspecified organism Code(s): J18.9 - Pneumonia, unspecified organism Status: Acute Assessment and Plan: 03/17/23: * CT of the chest/abdomen/pelvis showing pneumonia * Continue IV ABX Cefepime and oral Azithromycin. Was also given a dose of Vancomycin once in the ER * Currently on 2L NC with O2 saturation of 100%, continue to wean O2 for a saturation greater than 92%. Patient does not wear O2 at baseline. * Guaifenesin ordered for cough * PT/OT evaluation (3) Acute urinary tract infection: Code(s): N39.0 - Urinary tract infection, site not specified Status: Acute Assessment and Plan: 03/17/23: * UA showing 4+ protein, trace ketones, 1+ urine bilirubin, 2+ leukocyte, greater than 100 urine wbc's, many urine squamous epithelial cells, 4+ bacteria. * Urine culture pending * Continue IV cefepime at this time (4) ESRD on hemodialysis: Code(s): N18.6 - End stage renal disease; Z99.2 - Dependence on renal dialysis Status: Chronic Assessment and Plan: 03/17/23: * Patient has history of end-stage renal disease with HD, [id number]-[id number] * Nephrology following * Potassium today is 3.9, BUN 24, creatinine 3.6 * AV fistula in the left upper arm * Will plan for dialysis tomorrow (5) Essential (primary) hypertension: Code(s): I10 - Essential (primary) hypertension Status: Chronic Assessment and Plan: 03/17/23: * Blood pressure is ranging 143/70 to 159/57 * Home medications continued (6) Obstructive sleep apnea: Code(s): G47.33 - Obstructive sleep apnea (adult) (pediatric) Status: Chronic Assessment and Plan: 03/17/23: * Of note * Continue CPAP at night and while napping (7) Anemia: Qualifiers: Anemia type: due to chronic kidney disease Chronic kidney disease stage: stage 4 (severe) Qualified Code(s): N18.4 - Chronic kidney disease, stage 4 (severe); D63.1 - Anemia in chronic kidney disease Code(s): D64.9 - Anemia, unspecified Status: Chronic Assessment and Plan: 03/17/23: * Likely secondary to end-stage renal disease * Labs today show hemoglobin 8.7, hematocrit 29.6 (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: Qualifiers: Diabetes mellitus extermination inspector insulin use: without extermination inspector use Diabetes mellitus complication detail: with chronic kidney disease Chronic kidney disease stage: stage 4 (severe) Qualified Code(s): E11.22 - Type 2 diabetes mellitus with diabetic chronic kidney disease; N18.4 - Chronic kidney disease, stage 4 (severe) Code(s): E11.29 - Type 2 diabetes mellitus with other diabetic kidney complication Status: Chronic Assessment and Plan: 03/17/23: * Blood sugars are ranging 90-133 * Accu-Cheks AC and HS * Started on low-dose corrective sliding scale insulin * Hemoglobin A1c 5.2 * Likely diet controlled at home, no medications listed on med rec (9) Decreased mobility: Code(s): R26.89 - Other abnormalities
--- NOTE | 2023-03-17 10:53 | PM.IMPN ---
Progress Note: A&P Assessment and Plan (1) Acute hypoxemic respiratory failure: Code(s): J96.01 - Acute respiratory failure with hypoxia Status: Acute Assessment and Plan: 03/17/23: Likely due to Pneumonia O2 saturation 76% on room air when presented to the hospital, patient was placed on NC Currently on 2L NC with oxygen saturation of 100%, continue to wean for oxygen saturation greater than 92% (2) Right lower lobe pneumonia: Qualifiers: Pneumonia type: due to unspecified organism Qualified Code(s): J18.9 - Pneumonia, unspecified organism Code(s): J18.9 - Pneumonia, unspecified organism Status: Acute Assessment and Plan: 03/17/23: CT of the chest/abdomen/pelvis showing pneumonia Continue IV ABX Cefepime and oral Azithromycin. Was also given a dose of Vancomycin once in the ER Currently on 2L NC with O2 saturation of 100%, continue to wean O2 for a saturation greater than 92%. Patient does not wear O2 at baseline. Guaifenesin ordered for cough PT/OT evaluation (3) Acute urinary tract infection: Code(s): N39.0 - Urinary tract infection, site not specified Status: Acute Assessment and Plan: 03/17/23: UA showing 4+ protein, trace ketones, 1+ urine bilirubin, 2+ leukocyte, greater than 100 urine wbc's, many urine squamous epithelial cells, 4+ bacteria. Urine culture pending Continue IV cefepime at this time (4) ESRD on hemodialysis: Code(s): N18.6 - End stage renal disease; Z99.2 - Dependence on renal dialysis Status: Chronic Assessment and Plan: 03/17/23: Patient has history of end-stage renal disease with HD, [id number] Nephrology following Potassium today is 3.9, BUN 24, creatinine 3.6 AV fistula in the left upper arm Will plan for dialysis tomorrow (5) Essential (primary) hypertension: Code(s): I10 - Essential (primary) hypertension Status: Chronic Assessment and Plan: 03/17/23: Blood pressure is ranging 143/70 to 159/57 Home medications continued (6) Obstructive sleep apnea: Code(s): G47.33 - Obstructive sleep apnea (adult) (pediatric) Status: Chronic Assessment and Plan: 03/17/23: Of note Continue CPAP at night and while napping (7) Anemia: Qualifiers: Anemia type: due to chronic kidney disease Chronic kidney disease stage: stage 4 (severe) Qualified Code(s): N18.4 - Chronic kidney disease, stage 4 (severe); D63.1 - Anemia in chronic kidney disease Code(s): D64.9 - Anemia, unspecified Status: Chronic Assessment and Plan: 03/17/23: Likely secondary to end-stage renal disease Labs today show hemoglobin 8.7, hematocrit 29.6 (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: Qualifiers: Diabetes mellitus moth exterminator insulin use: without fci use Diabetes mellitus complication detail: with chronic kidney disease Chronic kidney disease stage: stage 4 (severe) Qualified Code(s): E11.22 - Type 2 diabetes mellitus with diabetic chronic kidney disease; N18.4 - Chronic kidney disease, stage 4 (severe) Code(s): E11.29 - Type 2 diabetes mellitus with other diabetic kidney complication Status: Chronic Assessment and Plan: 03/17/23: Blood sugars are ranging 90-133 Accu-Cheks AC and HS Started on low-dose corrective sliding scale insulin Hemoglobin A1c 5.2 Likely diet controlled at home, no medications listed on med rec (9) Decreased mobility: Code(s): R26.89 - Other abnormalities of gait and mobility Status: Acute Assessment and Plan: 03/17/23: Continue PT and OT Time Spent With Patient Time with patient: 25 - 35 minutes Subjective Date/time seen: 03/17/23 10:53 Interval history: This is an 83 year old with significant past medical history of ESRD on HD who presented to the hospital with shortness of breath, cough, abdominal pain, and 1 episode of vomiting. Work up in
[2023-03-17 12:20] LABS: Glucose Point of Care 126 mg/dl (65-105)
[2023-03-17] MEDS: ENOXAPARIN 30 MG/0.3 ML SYRINGE SUB-Q (12:23)
--- NOTE | 2023-03-17 14:20 | PM.PNNEP ---
Progress Note: A&P Assessment and Plan (1) End stage renal disease: Code(s): N18.6 - End stage renal disease Status: Chronic Assessment and Plan: HD tomorrow continue M/W/F dialysis schedule during hospital stay follow electrolytes, volume status, and clearance (2) Acute hypoxemic respiratory failure: Code(s): J96.01 - Acute respiratory failure with hypoxia Status: Acute Assessment and Plan: as noted on admission suspect secondary to #3 based on imaging to date oxygen support as needed -- wean as tolerated continue therapy as outlined (3) Right lower lobe pneumonia: Qualifiers: Pneumonia type: due to unspecified organism Qualified Code(s): J18.9 - Pneumonia, unspecified organism Code(s): J18.9 - Pneumonia, unspecified organism Status: Acute Assessment and Plan: as noted by admission CT scan follow culture data on antibiotics monitor respiratory status (4) Urinary tract infection: Code(s): N39.0 - Urinary tract infection, site not specified Status: Acute Assessment and Plan: admission urinalysis suggestive possible etiology of abdominal pain(?) urine culure results noted on antibiotics (5) Essential (primary) hypertension: Code(s): I10 - Essential (primary) hypertension Status: Chronic Assessment and Plan: reasonable control at this time resume home medications and adjust as needed (6) Anemia: Qualifiers: Anemia type: due to chronic kidney disease Chronic kidney disease stage: stage 4 (severe) Qualified Code(s): N18.4 - Chronic kidney disease, stage 4 (severe); D63.1 - Anemia in chronic kidney disease Code(s): D64.9 - Anemia, unspecified Status: Chronic Assessment and Plan: due to ESRD Epogen with HD follow trend of H/H (7) Diabetes: Code(s): E11.9 - Type 2 diabetes mellitus without complications Status: Chronic Assessment and Plan: on no medications -- presumably diet controlled now... follow accu-cheks - on low dose SSI glycemic control per hospitalists Will continue to follow Subjective Date/time seen: 03/17/23 14:20 Interval history: Follow-up for end stage renal disease on hemodialysis. Tolerated dialysis treatment yesterday without any issues or problmes; breathing/respiratory status is stable if not improved but still requiring supplemental oxygen at thet time of my visit; no other issues/events overnight or earlier this morning. Exam Narrative: General: elderly but WD/WN female in NAD Heart: normal S1 and S2; no rub Lungs: decreased at bases with a few right bibasilar crackles Abdomen: soft, nontender, nondistended, positive bowel sounds Extremities: no cyanosis or clubbing; no edema Skin: warm and dry Objective Data Vital Signs Vital Signs: Vital Signs Temp Pulse Resp BP Pulse Ox O2 Del Method O2 Flow Rate 03/17/23 14:00 98.6 F 55 L 16 147/40 H 96 Room Air 03/17/23 13:15 Room Air 03/17/23 12:30 98 03/17/23 11:18 Nasal Cannula 2 03/17/23 08:04 64 03/17/23 08:48 100 Nasal Cannula 2 03/17/23 08:40 62 03/17/23 04:50 98.6 F 63 22 H 151/61 H 100 03/17/23 04:00 56 L 03/17/23 00:00 69 03/16/23 21:03 76 03/16/23 20:00 96 Nasal Cannula 2 03/16/23 20:00 72 03/16/23 20:08 98.4 F 76 20 159/57 H 100 Intake/Output Intake/Output: Intake & Output 03/14/23 03/15/23 03/16/23 03/17/23 23:59 23:59 23:59 23:59 Intake Total 488 060 6899 Output Total 50 2000 Balance 750 -1140 1720 Meds/Results Medications: Active Medications Generic Name Dose Route Start Last Admin Trade Name Freq PRN Reason Stop Dose Admin Acetaminophen 650 mg 03/16/23 01:53 Acetaminophen 325 Mg Tablet PO Q4H PRN Mild Pain (1-3) or Fever Al Hydrox/Mg Hydrox/Si
--- NOTE | 2023-03-17 14:20 | P.PNNP_ITS ---
Progress Note: A&P Assessment and Plan (1) End stage renal disease: Code(s): N18.6 - End stage renal disease Status: Chronic Assessment and Plan: * HD tomorrow * continue M/W/F dialysis schedule during hospital stay * follow electrolytes, volume status, and clearance (2) Acute hypoxemic respiratory failure: Code(s): J96.01 - Acute respiratory failure with hypoxia Status: Acute Assessment and Plan: * as noted on admission * suspect secondary to #3 based on imaging to date * oxygen support as needed -- wean as tolerated * continue therapy as outlined (3) Right lower lobe pneumonia: Qualifiers: Pneumonia type: due to unspecified organism Qualified Code(s): J18.9 - Pneumonia, unspecified organism Code(s): J18.9 - Pneumonia, unspecified organism Status: Acute Assessment and Plan: * as noted by admission CT scan * follow culture data * on antibiotics * monitor respiratory status (4) Urinary tract infection: Code(s): N39.0 - Urinary tract infection, site not specified Status: Acute Assessment and Plan: * admission urinalysis suggestive * possible etiology of abdominal pain(?) * urine culure results noted * on antibiotics (5) Essential (primary) hypertension: Code(s): I10 - Essential (primary) hypertension Status: Chronic Assessment and Plan: * reasonable control at this time * resume home medications and adjust as needed (6) Anemia: Qualifiers: Anemia type: due to chronic kidney disease Chronic kidney disease stage: stage 4 (severe) Qualified Code(s): N18.4 - Chronic kidney disease, stage 4 (severe); D63.1 - Anemia in chronic kidney disease Code(s): D64.9 - Anemia, unspecified Status: Chronic Assessment and Plan: * due to ESRD * Epogen with HD * follow trend of H/H (7) Diabetes: Code(s): E11.9 - Type 2 diabetes mellitus without complications Status: Chronic Assessment and Plan: * on no medications -- presumably diet controlled now... * follow accu-cheks - on low dose SSI * glycemic control per hospitalists Will continue to follow Subjective Date/time seen: 03/17/23 14:20 Interval history: Follow-up for end stage renal disease on hemodialysis. Tolerated dialysis treatment yesterday without any issues or problmes; breathing/respiratory status is stable if not improved but still requiring supplemental oxygen at thet time of my visit; no other issues/events overnight or earlier this morning. Exam Narrative: General: elderly but WD/WN female in NAD Heart: normal S1 and S2; no rub Lungs: decreased at bases with a few right bibasilar crackles Abdomen: soft, nontender, nondistended, positive bowel sounds Extremities: no cyanosis or clubbing; no edema Skin: warm and dry Objective Data Vital Signs Vital Signs: Vital Signs Temp Pulse Resp BP Pulse Ox O2 Del Method O2 Flow Rate 03/17/23 14:00 98.6 F 55 L 16 147/40 H 96 Room Air 03/17/23 13:15 Room Air 03/17/23 12:30 98 03/17/23 11:18 Nasal Cannula 2 03/17/23 08:04 64 03/17/23 08:48 100 Nasal Cannula 2 03/17/23 08:40 62 03/17/23 04:50 98.6 F 63 22 H 151/61 H 100 03/17/23 04:00 56 L
[2023-03-17 16:41] LABS: Glucose Point of Care 117 mg/dl (65-105)
[2023-03-17] MEDS: AMOXICILLIN/CLAVULANATE K 500-125 MG TAB 1 TABLET PO (17:32)
[2023-03-17 22:10] LABS: Glucose Point of Care 135 mg/dl (65-105)
--- NOTE | 2023-03-17 22:50 | ADMGEN ---
This patient, Lilian Mandel, was admitted to Medical Room 345-01 from IMU 202 - 01. Patient oriented to hospital policies and general routines including ID bracelet, bed and alarms, visiting hours, pain management, procedures, bathroom and other care routines, personal items, smoking policy, room service/diet, and visiting hours. Information on how to activate the Rapid Response Team has been discussed. Patient are encouraged to report perceived risks to care and to ask questions if they do not understand what they are told or what they should do.
[2023-03-18] VITALS (22 sets, daily range): BP systolic 157–199; BP diastolic 45–87; PULSE 64–75; RESP 16–20; TEMP 35.8–37.1; O2SAT 96–99
[2023-03-18 05:29] LABS: Basophils Absolute Auto 0.1 K/mm3 (0.0-0.1); Basophils Percent Auto 0.7 % (0.2-1.2); Eosinophils Absolute Auto 0.4 K/mm3 (0-0.3); Hematocrit 28.5 % (37.0-47.0); Hemoglobin 8.7 g/dL (12.0-15.0); Immature Granulocyte Percent A 1.3 % (0-0.5); Lymphocytes Absolute Auto 1.14 K/mm3 (0.9-3.2); Lymphocytes Percent Auto 15.1 % (18.3-44.2); Mean Corpuscular HGB Conc 30.5 g/dl (32-36); Mean Corpuscular Hemoglobin 31.4 pg (26-34); Mean Corpuscular Volume 102.9 fl (80-100); Monocytes Absolute Auto 0.9 K/mm3 (0.1-0.6); Monocytes Percent Auto 11.4 % (2.6-8.5); Neutrophils Percent Auto 66.5 % (45.5-73.1); Nucleated Red Blood Cells Perc 0.3 % (0.0-0.2); Platelet Count Result 184 k/mm3 (150-375); Red Blood Count 2.77 M/mm3 (4.2-5.4); Red Cell Distribution Width 15.4 % (11.5-14.5); White Blood Count 7.6 K/mm3 (4.5-10.0)
[2023-03-18 05:43] LABS: Anion Gap 10 mmol/L (8-16); Blood Urea Nitrogen 43 mg/dL (7-17); Calcium 8.6 mg/dL (8.4-10.2); Carbon Dioxide 26 mmol/L (22-30); Chloride 100 mmol/L (98-107); Estimated CRCL calculation 9 ml/min; Estimated Glomerular Filt Rate 10; Glucose 110 mg/dL (65-110); Potassium 3.9 mmol/L (3.4-5.0); Sodium 136 mmol/L (137-145)
--- NOTE | 2023-03-18 08:30 | PC.NURSE ---
Patient off of the unit to Dialysis
[2023-03-18 08:31] LABS: Glucose Point of Care 107 mg/dl (65-105)
[2023-03-18] MEDS: SODIUM CHLORIDE 0.9% IV 1,000 ML 999 ML IV CONT (08:55)
[2023-03-18] MEDS: HEPARIN SODIUM 1,000 UNITS/ML VIAL 4000 UNITS (08:55)
--- NOTE | 2023-03-18 09:11 | PCOTNOTE ---
The patient treatment was not able to be completed. Patient out of the room. Will plan to continue treatment per plan of care.
--- NOTE | 2023-03-18 10:25 | P.PNNP_ITS ---
Progress Note: A&P Assessment and Plan (1) End stage renal disease: Code(s): N18.6 - End stage renal disease Status: Chronic Assessment and Plan: * HD today * continue M/W/F dialysis schedule during hospital stay * follow electrolytes, volume status, and clearance (2) Acute hypoxemic respiratory failure: Code(s): J96.01 - Acute respiratory failure with hypoxia Status: Acute Assessment and Plan: * as noted on admission * suspect secondary to #3 based on imaging to date * oxygen support as needed -- on room air currently * continue therapy as outlined (3) Right lower lobe pneumonia: Qualifiers: Pneumonia type: due to unspecified organism Qualified Code(s): J18.9 - Pneumonia, unspecified organism Code(s): J18.9 - Pneumonia, unspecified organism Status: Acute Assessment and Plan: * as noted by admission CT scan * follow culture data * on antibiotics * monitor respiratory status (4) Urinary tract infection: Code(s): N39.0 - Urinary tract infection, site not specified Status: Acute Assessment and Plan: * admission urinalysis suggestive * possible etiology of abdominal pain(?) * urine culture with Aerococcus viridans * on antibiotics (5) Essential (primary) hypertension: Code(s): I10 - Essential (primary) hypertension Status: Chronic Assessment and Plan: * reasonable control at this time * resume home medications and adjust as needed (6) Anemia: Qualifiers: Anemia type: due to chronic kidney disease Chronic kidney disease stage: stage 4 (severe) Qualified Code(s): N18.4 - Chronic kidney disease, stage 4 (severe); D63.1 - Anemia in chronic kidney disease Code(s): D64.9 - Anemia, unspecified Status: Chronic Assessment and Plan: * due to ESRD * Epogen with HD * follow trend of H/H (7) Diabetes: Code(s): E11.9 - Type 2 diabetes mellitus without complications Status: Chronic Assessment and Plan: * on no medications -- presumably diet controlled now... * follow accu-cheks - on low dose SSI * glycemic control per hospitalists Will continue to follow Subjective Date/time seen: 03/18/23 10:25 Interval history: Follow-up for end stage renal disease on hemodialysis. Tolerating hemodialysis treatment at the time of my visit (seen on HD at 10:15AM); breting/respirtory status continues to slowly imrpove; no apparent distress noted; overall, feels better since admission. Exam Narrative: General: elderly but WD/WN female in NAD Heart: normal S1 and S2; no rub Lungs: decreased at bases Abdomen: soft, nontender, nondistended, positive bowel sounds Extremities: no cyanosis or clubbing; no edema Skin: warm and intact Objective Data Vital Signs Vital Signs: Vital Signs Temp Pulse Resp BP Pulse Ox O2 Del Method FiO2 03/18/23 10:15 74 190/83 H 03/18/23 10:00 70 191/86 H 03/18/23 09:45 73 193/86 H 03/18/23 09:30 72 191/84 H 03/18/23 09:15 69 168/53 H 03/18/23 09:00 68 171/71 H 03/18/23 08:55 67 167/80 H 03/18/23 08:38 98.2 F 67 16 198/67 H 98 03/18/23 08:38 98 03/18/23 03:54 98.7 F 64 20 157/45 H 97 03/17/23 20:15 64
--- NOTE | 2023-03-18 10:25 | PM.PNNEP ---
Progress Note: A&P Assessment and Plan (1) End stage renal disease: Code(s): N18.6 - End stage renal disease Status: Chronic Assessment and Plan: HD today continue M/W/F dialysis schedule during hospital stay follow electrolytes, volume status, and clearance (2) Acute hypoxemic respiratory failure: Code(s): J96.01 - Acute respiratory failure with hypoxia Status: Acute Assessment and Plan: as noted on admission suspect secondary to #3 based on imaging to date oxygen support as needed -- on room air currently continue therapy as outlined (3) Right lower lobe pneumonia: Qualifiers: Pneumonia type: due to unspecified organism Qualified Code(s): J18.9 - Pneumonia, unspecified organism Code(s): J18.9 - Pneumonia, unspecified organism Status: Acute Assessment and Plan: as noted by admission CT scan follow culture data on antibiotics monitor respiratory status (4) Urinary tract infection: Code(s): N39.0 - Urinary tract infection, site not specified Status: Acute Assessment and Plan: admission urinalysis suggestive possible etiology of abdominal pain(?) urine culture with Aerococcus viridans on antibiotics (5) Essential (primary) hypertension: Code(s): I10 - Essential (primary) hypertension Status: Chronic Assessment and Plan: reasonable control at this time resume home medications and adjust as needed (6) Anemia: Qualifiers: Anemia type: due to chronic kidney disease Chronic kidney disease stage: stage 4 (severe) Qualified Code(s): N18.4 - Chronic kidney disease, stage 4 (severe); D63.1 - Anemia in chronic kidney disease Code(s): D64.9 - Anemia, unspecified Status: Chronic Assessment and Plan: due to ESRD Epogen with HD follow trend of H/H (7) Diabetes: Code(s): E11.9 - Type 2 diabetes mellitus without complications Status: Chronic Assessment and Plan: on no medications -- presumably diet controlled now... follow accu-cheks - on low dose SSI glycemic control per hospitalists Will continue to follow Subjective Date/time seen: 03/18/23 10:25 Interval history: Follow-up for end stage renal disease on hemodialysis. Tolerating hemodialysis treatment at the time of my visit (seen on HD at 10:15AM); breting/respirtory status continues to slowly imrpove; no apparent distress noted; overall, feels better since admission. Exam Narrative: General: elderly but WD/WN female in NAD Heart: normal S1 and S2; no rub Lungs: decreased at bases Abdomen: soft, nontender, nondistended, positive bowel sounds Extremities: no cyanosis or clubbing; no edema Skin: warm and intact Objective Data Vital Signs Vital Signs: Vital Signs Temp Pulse Resp BP Pulse Ox O2 Del Method FiO2 03/18/23 10:15 74 190/83 H 03/18/23 10:00 70 191/86 H 03/18/23 09:45 73 193/86 H 03/18/23 09:30 72 191/84 H 03/18/23 09:15 69 168/53 H 03/18/23 09:00 68 171/71 H 03/18/23 08:55 67 167/80 H 03/18/23 08:38 98.2 F 67 16 198/67 H 98 03/18/23 08:38 98 03/18/23 03:54 98.7 F 64 20 157/45 H 97 03/17/23 20:15 64 03/17/23 19:50 98.3 F 62 20 136/55 L 97 Intake/Output Intake/Output: Intake & Output 03/15/23 03/16/23 03/17/23 03/18/23 23:59 23:59 23:59 23:59 Intake Total 677 860 4468 680 Output Total 50 2000 0 Balance 750 -1090 1720 680 Meds/Results Medications: Active Medications Generic Name Dose Route Start Last Admin Trade Name Freq PRN Reason Stop Dose Admin Acetaminophen 650 mg 03/16/23 01:53 Acetaminophen 325 Mg Tablet PO Q4H PRN Mild Pain (1-3) or Fever Al Hydrox/Mg Hydrox/Simethicone 30 ml 03/16/23 01:53 Mag Hydrox/Al Hydrox/Simeth 30 Ml Udc PO QID PRN Dyspepsia Amoxicillin/Clav
[2023-03-18] MEDS: EPOETIN ALFA-EPBX 10,000 UNITS/ML VIAL 10000 UNITS IV PUSH (11:06)
[2023-03-18 13:03] LABS: Glucose Point of Care 127 mg/dl (65-105)
[2023-03-18] MEDS: hydrALAZINE HCL 25 MG TABLET PO ×2 (15:28→22:06)
[2023-03-18] MEDS: hydrALAZINE HCL 50 MG TABLET PO ×2 (15:28→22:06)
--- NOTE | 2023-03-18 15:56 | P.PNIM_ITS ---
Progress Note: A&P Assessment and Plan (1) Acute hypoxemic respiratory failure: Code(s): J96.01 - Acute respiratory failure with hypoxia Status: Acute Assessment and Plan: * Likely secondary to Pneumonia * continue to wean for oxygen saturation greater than 92% (2) Right lower lobe pneumonia: Qualifiers: Pneumonia type: due to unspecified organism Qualified Code(s): J18.9 - Pneumonia, unspecified organism Code(s): J18.9 - Pneumonia, unspecified organism Status: Acute Assessment and Plan: * CT of the chest/abdomen/pelvis showing pneumonia * Continue Augmentin and oral Azithromycin. * on room air, continue to wean O2 for a saturation greater than 92%. * PT/OT d/c (3) Acute urinary tract infection: Code(s): N39.0 - Urinary tract infection, site not specified Status: Acute Assessment and Plan: * UA showing 4+ protein, trace ketones, 1+ urine bilirubin, 2+ leukocyte, greater than 100 urine wbc's, many urine squamous epithelial cells, 4+ bacteria. * Urine culture showed Aerococcus viridans * Continue Augmentin, discussed with Id pharm and is covered by current AB therapy (4) ESRD on hemodialysis: Code(s): N18.6 - End stage renal disease; Z99.2 - Dependence on renal dialysis Status: Chronic Assessment and Plan: * Patient has history of end-stage renal disease with HD, [id number] * Nephrology following * Potassium today is 3.9, BUN 43, creatinine 5.10 pre dialysis today * AV fistula in the left upper arm (5) Essential (primary) hypertension: Code(s): I10 - Essential (primary) hypertension Status: Chronic Assessment and Plan: * Blood pressure is elevated today * Home medications continued * Will order PRN hydral IV (6) Obstructive sleep apnea: Code(s): G47.33 - Obstructive sleep apnea (adult) (pediatric) Status: Chronic Assessment and Plan: * Continue CPAP at night and while napping (7) Anemia: Qualifiers: Anemia type: due to chronic kidney disease Chronic kidney disease stage: stage 4 (severe) Qualified Code(s): N18.4 - Chronic kidney disease, stage 4 (severe); D63.1 - Anemia in chronic kidney disease Code(s): D64.9 - Anemia, unspecified Status: Chronic Assessment and Plan: * Likely secondary to end-stage renal disease * Labs stable at hemoglobin 8.7, hematocrit 28.5 (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: Qualifiers: Diabetes mellitus correction insulin use: without sheet metal shop supervisor use Diabetes mellitus complication detail: with chronic kidney disease Chronic kidney disease stage: stage 4 (severe) Qualified Code(s): E11.22 - Type 2 diabetes mellitus with diabetic chronic kidney disease; N18.4 - Chronic kidney disease, stage 4 (severe) Code(s): E11.29 - Type 2 diabetes mellitus with other diabetic kidney complication Status: Chronic Assessment and Plan: * Blood sugars are ranging 90-133 * Accu-Cheks AC and HS * Started on low-dose corrective sliding scale insulin * Hemoglobin A1c 5.2 * Likely diet controlled at home, no medications listed on med rec (9) Decreased mobility: Code(s): R26.89 - Other abnormalities of gait and mobility Status: Acute Assessment and Plan: * PT d/c * OT evaluating Subjective Date/time seen: 03/18/23 15:56 Interval history: Patient resting comfortably post dialysis this afternoon. She is in no acute distress after dialysis, [place]
--- NOTE | 2023-03-18 15:56 | PM.IMPN ---
Progress Note: A&P Assessment and Plan (1) Acute hypoxemic respiratory failure: Code(s): J96.01 - Acute respiratory failure with hypoxia Status: Acute Assessment and Plan: Likely secondary to Pneumonia continue to wean for oxygen saturation greater than 92% (2) Right lower lobe pneumonia: Qualifiers: Pneumonia type: due to unspecified organism Qualified Code(s): J18.9 - Pneumonia, unspecified organism Code(s): J18.9 - Pneumonia, unspecified organism Status: Acute Assessment and Plan: CT of the chest/abdomen/pelvis showing pneumonia Continue Augmentin and oral Azithromycin. on room air, continue to wean O2 for a saturation greater than 92%. PT/OT d/c (3) Acute urinary tract infection: Code(s): N39.0 - Urinary tract infection, site not specified Status: Acute Assessment and Plan: UA showing 4+ protein, trace ketones, 1+ urine bilirubin, 2+ leukocyte, greater than 100 urine wbc's, many urine squamous epithelial cells, 4+ bacteria. Urine culture showed Aerococcus viridans Continue Augmentin, discussed with Id pharm and is covered by current AB therapy (4) ESRD on hemodialysis: Code(s): N18.6 - End stage renal disease; Z99.2 - Dependence on renal dialysis Status: Chronic Assessment and Plan: Patient has history of end-stage renal disease with HD, [facility] Neph[facility] following Potassium today is 3.9, BUN 43, creatinine 5.10 pre dialysis today AV fistula in the left upper arm (5) Essential (primary) hypertension: Code(s): I10 - Essential (primary) hypertension Status: Chronic Assessment and Plan: Blood pressure is elevated today Home medications continued Will order PRN hydral IV (6) Obstructive sleep apnea: Code(s): G47.33 - Obstructive sleep apnea (adult) (pediatric) Status: Chronic Assessment and Plan: Continue CPAP at night and while napping (7) Anemia: Qualifiers: Anemia type: due to chronic kidney disease Chronic kidney disease stage: stage 4 (severe) Qualified Code(s): N18.4 - Chronic kidney disease, stage 4 (severe); D63.1 - Anemia in chronic kidney disease Code(s): D64.9 - Anemia, unspecified Status: Chronic Assessment and Plan: Likely secondary to end-stage renal disease Labs stable at hemoglobin 8.7, hematocrit 28.5 (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: Qualifiers: Diabetes mellitus chcf insulin use: without terminal gauger use Diabetes mellitus complication detail: with chronic kidney disease Chronic kidney disease stage: stage 4 (severe) Qualified Code(s): E11.22 - Type 2 diabetes mellitus with diabetic chronic kidney disease; N18.4 - Chronic kidney disease, stage 4 (severe) Code(s): E11.29 - Type 2 diabetes mellitus with other diabetic kidney complication Status: Chronic Assessment and Plan: Blood sugars are ranging 90-133 Accu-Cheks AC and HS Started on low-dose corrective sliding scale insulin Hemoglobin A1c 5.2 Likely diet controlled at home, no medications listed on med rec (9) Decreased mobility: Code(s): R26.89 - Other abnormalities of gait and mobility Status: Acute Assessment and Plan: PT d/c OT evaluating Subjective Date/time seen: 03/18/23 15:56 Interval history: Patient resting comfortably post dialysis this afternoon. She is in no acute distress after dialysis, denies any pain or SOB. She reports a minor cough. Nephrology following for dialysis needs. Continue to treat pneumonia and UTI with PO Augmentin and Zithromax. UA culture showed Aerococcus viridans. Discussed with ID pharmacist and covered by current AB regimen. Review of Systems Review of Systems: All systems reviewed & are unremarkable except as noted in HPI and below Exam Narrative: General: In no acute distress, well nourished Head:
[2023-03-18 17:12] LABS: Glucose Point of Care 154 mg/dl (65-105)
[2023-03-18 20:43] LABS: Glucose Point of Care 139 mg/dl (65-105)
[2023-03-18] MEDS: AMOXICILLIN/CLAVULANATE K 500-125 MG TAB 1 TABLET PO (22:05)
[2023-03-18] MEDS: DOCUSATE SODIUM 100 MG CAPSULE PO (22:06)
[2023-03-18] MEDS: carvediloL 12.5 MG TABLET PO (22:06)
[2023-03-19 06:00] VITALS: BP 166/59; PULSE 79; RESP 18; TEMP 36.8; O2SAT 97
[2023-03-19] MEDS: hydrALAZINE HCL 50 MG TABLET PO (06:10)
[2023-03-19] MEDS: hydrALAZINE HCL 25 MG TABLET PO (06:10)
[2023-03-19 06:21] LABS: Hematocrit 30.8 % (37.0-47.0); Hemoglobin 9.1 g/dL (12.0-15.0); Mean Corpuscular HGB Conc 29.5 g/dl (32-36); Mean Corpuscular Hemoglobin 30.3 pg (26-34); Mean Corpuscular Volume 102.7 fl (80-100); Mean Platelet Volume 9.2 fl (7.4-10.4); Platelet Count Result 222 k/mm3 (150-375); Red Cell Distribution Width 15.5 % (11.5-14.5); White Blood Count 6.3 K/mm3 (4.5-10.0)
[2023-03-19 06:50] LABS: Anion Gap 6 mmol/L (8-16); Blood Urea Nitrogen 26 mg/dL (7-17); Calcium 8.4 mg/dL (8.4-10.2); Carbon Dioxide 32 mmol/L (22-30); Chloride 101 mmol/L (98-107); Estimated CRCL calculation 14 ml/min; Estimated Glomerular Filt Rate 16; Glucose 125 mg/dL (65-110); Sodium 139 mmol/L (137-145)
[2023-03-19 08:25] VITALS: PULSE 76
[2023-03-19] MEDS: FUROSEMIDE 40 MG TABLET PO (08:25)
[2023-03-19] MEDS: AMOXICILLIN/CLAVULANATE K 500-125 MG TAB 1 TABLET PO (08:25)
[2023-03-19] MEDS: NIFEdipine 30 MG TAB.ER.24 90 MG PO (08:25)
[2023-03-19] MEDS: carvediloL 12.5 MG TABLET PO (08:25)
[2023-03-19] MEDS: AZITHROMYCIN 250 MG TABLET 500 MG PO (08:26)
[2023-03-19] MEDS: DOCUSATE SODIUM 100 MG CAPSULE PO (08:26)
[2023-03-19] MEDS: ENOXAPARIN 30 MG/0.3 ML SYRINGE SUB-Q (08:26)
[2023-03-19 08:35] LABS: Glucose Point of Care 122 mg/dl (65-105)
--- NOTE | 2023-03-19 11:17 | PM.PNNEP ---
Progress Note: A&P Assessment and Plan (1) End stage renal disease: Code(s): N18.6 - End stage renal disease Status: Chronic Assessment and Plan: HD tomorrow continue M/W/F dialysis schedule during hospital stay follow electrolytes, volume status, and clearance (2) Acute hypoxemic respiratory failure: Code(s): J96.01 - Acute respiratory failure with hypoxia Status: Acute Assessment and Plan: as noted on admission suspect secondary to #3 based on imaging to date oxygen support as needed -- on room air currently continue therapy as outlined (3) Right lower lobe pneumonia: Qualifiers: Pneumonia type: due to unspecified organism Qualified Code(s): J18.9 - Pneumonia, unspecified organism Code(s): J18.9 - Pneumonia, unspecified organism Status: Acute Assessment and Plan: as noted by admission CT scan follow culture data on antibiotics monitor respiratory status (4) Urinary tract infection: Code(s): N39.0 - Urinary tract infection, site not specified Status: Acute Assessment and Plan: admission urinalysis suggestive possible etiology of abdominal pain(?) urine culture with Aerococcus viridans on antibiotics (5) Essential (primary) hypertension: Code(s): I10 - Essential (primary) hypertension Status: Chronic Assessment and Plan: reasonable control at this time resume home medications and adjust as needed (6) Anemia: Qualifiers: Anemia type: due to chronic kidney disease Chronic kidney disease stage: stage 4 (severe) Qualified Code(s): N18.4 - Chronic kidney disease, stage 4 (severe); D63.1 - Anemia in chronic kidney disease Code(s): D64.9 - Anemia, unspecified Status: Chronic Assessment and Plan: due to ESRD Epogen with HD follow trend of H/H (7) Diabetes: Code(s): E11.9 - Type 2 diabetes mellitus without complications Status: Chronic Assessment and Plan: on no medications -- presumably diet controlled now... follow accu-cheks - on low dose SSI glycemic control per hospitalists Will continue to follow Subjective Date/time seen: 03/19/23 11:17 Interval history: Follow-up for end stage renal disease on hemodialysis. Tolerated dialysis treatment yesterday without any issues or problems; breathing/respiratory status is stable if not better (on room air); no other issues/events overnight or earlier today. Exam Narrative: General: elderly but WD/WN female in NAD Heart: normal S1 and S2; no rub Lungs: decreased at bases Abdomen: soft, nontender, nondistended, positive bowel sounds Extremities: no cyanosis or clubbing; no edema Skin: no rash or nodules Objective Data Vital Signs Vital Signs: Vital Signs Temp Pulse Resp BP Pulse Ox O2 Del Method 03/19/23 08:25 Room Air 03/19/23 08:25 76 03/19/23 06:00 98.2 F 79 18 166/59 H 97 03/18/23 20:00 Room Air 03/18/23 22:00 98.4 F 71 18 187/51 H 96 03/18/23 22:06 64 Intake/Output Intake/Output: Intake & Output 03/16/23 03/17/23 03/18/23 03/19/23 23:59 23:59 23:59 23:59 Intake Total 910 1720 1680 760 Output Total 2000 0 2650 Balance -1090 1720 -970 760 Meds/Results Medications: Medications: Active Medications Generic Name Dose Route Start Last Admin ? Trade Name Freq? PRN Reason Stop Dose Admin Acetaminophen ?650 mg ?03/16/23 01:53 ? ? Acetaminophen 325 Mg Tablet ?PO ?Q4H PRN ?Mild Pain (1-3) or Fever ? ? Al Hydrox/Mg Hydrox/Simethicone ?30 ml ?03/16/23 01:53 ? ? Mag Hydrox/Al Hydrox/Simeth 30 Ml Udc ?PO ?QID PRN ?Dyspepsia ? ? Amoxicillin/Clavulanate Potassium ?1 tablet ?03/17/23 18:00 ?03/18/23 08:39 ? Amoxicillin/Clavulanate K 500-125 Mg Tab ?PO ? ?Not Given ? ?Q12HR EVAN ? ? Azithromycin ?500 mg ?03/16/23 14:00 ?03/18/23 08:39 ? Azithromycin 250 Mg Table
--- NOTE | 2023-03-19 11:17 | P.PNNP_ITS ---
Progress Note: A&P Assessment and Plan (1) End stage renal disease: Code(s): N18.6 - End stage renal disease Status: Chronic Assessment and Plan: * HD tomorrow * continue M/W/F dialysis schedule during hospital stay * follow electrolytes, volume status, and clearance (2) Acute hypoxemic respiratory failure: Code(s): J96.01 - Acute respiratory failure with hypoxia Status: Acute Assessment and Plan: * as noted on admission * suspect secondary to #3 based on imaging to date * oxygen support as needed -- on room air currently * continue therapy as outlined (3) Right lower lobe pneumonia: Qualifiers: Pneumonia type: due to unspecified organism Qualified Code(s): J18.9 - Pneumonia, unspecified organism Code(s): J18.9 - Pneumonia, unspecified organism Status: Acute Assessment and Plan: * as noted by admission CT scan * follow culture data * on antibiotics * monitor respiratory status (4) Urinary tract infection: Code(s): N39.0 - Urinary tract infection, site not specified Status: Acute Assessment and Plan: * admission urinalysis suggestive * possible etiology of abdominal pain(?) * urine culture with Aerococcus viridans * on antibiotics (5) Essential (primary) hypertension: Code(s): I10 - Essential (primary) hypertension Status: Chronic Assessment and Plan: * reasonable control at this time * resume home medications and adjust as needed (6) Anemia: Qualifiers: Anemia type: due to chronic kidney disease Chronic kidney disease stage: stage 4 (severe) Qualified Code(s): N18.4 - Chronic kidney disease, stage 4 (severe); D63.1 - Anemia in chronic kidney disease Code(s): D64.9 - Anemia, unspecified Status: Chronic Assessment and Plan: * due to ESRD * Epogen with HD * follow trend of H/H (7) Diabetes: Code(s): E11.9 - Type 2 diabetes mellitus without complications Status: Chronic Assessment and Plan: * on no medications -- presumably diet controlled now... * follow accu-cheks - on low dose SSI * glycemic control per hospitalists Will continue to follow Subjective Date/time seen: 03/19/23 11:17 Interval history: Follow-up for end stage renal disease on hemodialysis. Tolerated dialysis treatment yesterday without any issues or problems; breathing/respiratory status is stable if not better (on room air); no other issues/events overnight or earlier today. Exam Narrative: General: elderly but WD/WN female in NAD Heart: normal S1 and S2; no rub Lungs: decreased at bases Abdomen: soft, nontender, nondistended, positive bowel sounds Extremities: no cyanosis or clubbing; no edema Skin: no rash or nodules Objective Data Vital Signs Vital Signs: Vital Signs Temp Pulse Resp BP Pulse Ox O2 Del Method 03/19/23 08:25 Room Air 03/19/23 08:25 76 03/19/23 06:00 98.2 F 79 18 166/59 H 97 03/18/23 20:00 Room Air 03/18/23 22:00 98.4 F 71 18 187/51 H 96 03/18/23 22:06 64 Intake/Output Intake/Output: Intake & Output 03/16/23 03/17/23 03/18/23 03/19/23 23:59 23:59 23:59 23:59 Intake Total 910 1720 1680 760
[2023-03-19 12:21] LABS: Glucose Point of Care 136 mg/dl (65-105)
--- NOTE | 2023-03-19 12:46 | P.DS_ITS ---
DS: Admitting Diagnosis Discharge Date 03/19/23 Admitting Diagnosis SOB, cough DS: Discharge Diagnosis Discharge Diagnosis (1) Acute hypoxemic respiratory failure: Code(s): J96.01 - Acute respiratory failure with hypoxia Status: Resolved Assessment and Plan: * Likely secondary to Pneumonia * resolved, satting fine on room air (2) Right lower lobe pneumonia: Qualifiers: Pneumonia type: due to unspecified organism Qualified Code(s): J18.9 - Pneumonia, unspecified organism Code(s): J18.9 - Pneumonia, unspecified organism Status: Acute Assessment and Plan: * CT of the chest/abdomen/pelvis showing pneumonia * Continue Augmentin PO, completed azithromycin course prior to d/c * on room air * PT/OT d/c (3) Acute urinary tract infection: Code(s): N39.0 - Urinary tract infection, site not specified Status: Acute Assessment and Plan: * UA showing 4+ protein, trace ketones, 1+ urine bilirubin, 2+ leukocyte, greater than 100 urine wbc's, many urine squamous epithelial cells, 4+ bacteria. * Urine culture showed Aerococcus viridans * Continue Augmentin, discussed with Id pharm and is covered by current AB therapy (4) ESRD on hemodialysis: Code(s): N18.6 - End stage renal disease; Z99.2 - Dependence on renal dialysis Status: Chronic Assessment and Plan: * Patient has history of end-stage renal disease with HD, Tuesday -Tuesday-Tuesday * Nephrology following * Potassium today is 4.0, BUN 26, creatinine 3.30 today * AV fistula in the left upper arm (5) Essential (primary) hypertension: Code(s): I10 - Essential (primary) hypertension Status: Chronic Assessment and Plan: * Blood pressure is elevated * Home medications continued (6) Obstructive sleep apnea: Code(s): G47.33 - Obstructive sleep apnea (adult) (pediatric) Status: Chronic Assessment and Plan: * Continue CPAP (7) Anemia: Qualifiers: Anemia type: due to chronic kidney disease Chronic kidney disease stage: stage 4 (severe) Qualified Code(s): N18.4 - Chronic kidney disease, stage 4 (severe); D63.1 - Anemia in chronic kidney disease Code(s): D64.9 - Anemia, unspecified Status: Chronic Assessment and Plan: * Likely secondary to end-stage renal disease * Labs stable at hemoglobin 9.1, hematocrit 30.8 (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: Qualifiers: Diabetes mellitus computer terminal operator insulin use: without half-way use Diabetes mellitus complication detail: with chronic kidney disease Chronic kidney dise ase stage: stage 4 (severe) Qualified Code(s): E11.22 - Type 2 diabetes mellitus with diabetic chronic kidney disease; N18.4 - Chronic kidney disease, stage 4 (severe) Code(s): E11.29 - Type 2 diabetes mellitus with other diabetic kidney complication Status: Chronic Assessment and Plan: * Blood sugars are ranging 90-133 * Accu-Cheks AC and HS * Started on low-dose corrective sliding scale insulin * Hemoglobin A1c 5.2 * Likely diet controlled at home, no medications listed on med rec (9) Decreased mobility: Code(s): R26.89 - Other abnormalities of gait and mobility Status: Acute Assessment and Plan: * PT d/c * OT recommended after d/c DS: Summary Hospital Course Hospital Course: Patient is an 83 YO with PMH of ESRD on HD admitted for shortness of breath, cough, abdominal pain, and 1 episode of vomiting. Wor
--- NOTE | 2023-03-19 12:46 | PM.DS ---
DS: Admitting Diagnosis Discharge Date 03/19/23 Admitting Diagnosis SOB, cough DS: Discharge Diagnosis Discharge Diagnosis (1) Acute hypoxemic respiratory failure: Code(s): J96.01 - Acute respiratory failure with hypoxia Status: Resolved Assessment and Plan: Likely secondary to Pneumonia resolved, satting fine on room air (2) Right lower lobe pneumonia: Qualifiers: Pneumonia type: due to unspecified organism Qualified Code(s): J18.9 - Pneumonia, unspecified organism Code(s): J18.9 - Pneumonia, unspecified organism Status: Acute Assessment and Plan: CT of the chest/abdomen/pelvis showing pneumonia Continue Augmentin PO, completed azithromycin course prior to d/c on room air PT/OT d/c (3) Acute urinary tract infection: Code(s): N39.0 - Urinary tract infection, site not specified Status: Acute Assessment and Plan: UA showing 4+ protein, trace ketones, 1+ urine bilirubin, 2+ leukocyte, greater than 100 urine wbc's, many urine squamous epithelial cells, 4+ bacteria. Urine culture showed Aerococcus viridans Continue Augmentin, discussed with Id pharm and is covered by current AB therapy (4) ESRD on hemodialysis: Code(s): N18.6 - End stage renal disease; Z99.2 - Dependence on renal dialysis Status: Chronic Assessment and Plan: Patient has history of end-stage renal disease with HD, [facility] Nephrology following Potassium today is 4.0, BUN 26, creatinine 3.30 today AV fistula in the left upper arm (5) Essential (primary) hypertension: Code(s): I10 - Essential (primary) hypertension Status: Chronic Assessment and Plan: Blood pressure is elevated Home medications continued (6) Obstructive sleep apnea: Code(s): G47.33 - Obstructive sleep apnea (adult) (pediatric) Status: Chronic Assessment and Plan: Continue CPAP (7) Anemia: Qualifiers: Anemia type: due to chronic kidney disease Chronic kidney disease stage: stage 4 (severe) Qualified Code(s): N18.4 - Chronic kidney disease, stage 4 (severe); D63.1 - Anemia in chronic kidney disease Code(s): D64.9 - Anemia, unspecified Status: Chronic Assessment and Plan: Likely secondary to end-stage renal disease Labs stable at hemoglobin 9.1, hematocrit 30.8 (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: Qualifiers: Diabetes mellitus lobsterman insulin use: without lobsterman use Diabetes mellitus complication detail: with chronic kidney disease Chronic kidney disease stage: stage 4 (severe) Qualified Code(s): E11.22 - Type 2 diabetes mellitus with diabetic chronic kidney disease; N18.4 - Chronic kidney disease, stage 4 (severe) Code(s): E11.29 - Type 2 diabetes mellitus with other diabetic kidney complication Status: Chronic Assessment and Plan: Blood sugars are ranging 90-133 Accu-Cheks AC and HS Started on low-dose corrective sliding scale insulin Hemoglobin A1c 5.2 Likely diet controlled at home, no medications listed on med rec (9) Decreased mobility: Code(s): R26.89 - Other abnormalities of gait and mobility Status: Acute Assessment and Plan: PT d/c OT recommended after d/c DS: Summary Hospital Course Hospital Course: Patient is an 83 YO with PMH of ESRD on HD admitted for shortness of breath, cough, abdominal pain, and 1 episode of vomiting. Work up in hospital included a CT of the chest/abdomen/pelvis which revealed pneumonia. Patient was started on IV antibiotic Cefepime and Azithromycin oral. She has completed her azithro course and will d/c on PO Augmentin. UA also shown 4+ protein, trace ketones, 1+ urine bilirubin, 2+ leukocyte, greater than 100 urine wbc's, many urine squamous epithelial cells present, 4+ bacteria. Urine culture Aerococcus viridans which is covered by Augmentin. She is o
[2023-03-19 14:28] LABS: SARS-CoV-2 RNA PCR Negative (Negative)
== END 2023-03-19 15:50 | DRG 193 ==
LOC: ANHED 16:23 → ANH3MEDSUR 17:41 → ANH3MED 20:58
PROVIDERS: Family Medicine; Admitting Provider Internal Medicine; Emergency Provider Student in an Organized Health Care Education/Training Program; PCP Nurse Practitioner Family; Visit Provider Nurse Practitioner
DX: J18.9 Pneumonia, unspecified organism (principal); J96.01 Acute respiratory failure with hypoxia; N18.6 End stage renal disease; I13.2 Hypertensive heart and chronic kidney disease with heart failure and with stage 5 chronic kidney disease, or end stage renal disease; N39.0 Urinary tract infection, site not specified; I50.32 Chronic diastolic (congestive) heart failure; E11.22 Type 2 diabetes mellitus with diabetic chronic kidney disease; B96.89 Other specified bacterial agents as the cause of diseases classified elsewhere; Z20.822 Contact with and (suspected) exposure to COVID-19; I25.10 Atherosclerotic heart disease of native coronary artery without angina pectoris; I77.9 Disorder of arteries and arterioles, unspecified; N25.0 Renal osteodystrophy; E03.9 Hypothyroidism, unspecified; D63.1 Anemia in chronic kidney disease; K21.9 Gastro-esophageal reflux disease without esophagitis; G47.33 Obstructive sleep apnea (adult) (pediatric); E78.2 Mixed hyperlipidemia; Z96.653 Presence of artificial knee joint, bilateral; Z96.641 Presence of right artificial hip joint; Z96.1 Presence of intraocular lens; Z99.2 Dependence on renal dialysis; Z98.42 Cataract extraction status, left eye; Z98.41 Cataract extraction status, right eye; Z87.891 Personal history of nicotine dependence
CPT/HCPCS: 36415; 71250; 74176; 80048; 80053; 80202; 81001; 82948; 83036; 83690; 83735; 84100; 84484; 85025; 85027; 85610; 85730; 87077; 87086; 87088; 87635; 87637; 87641; 93005; 96365; 97161; 97165; 97535; 99285; A9270; G0257; J0456; J0692; J1644; J1650; J3370; J7030; P9047; Q5105

== ENCOUNTER 2023-04-19 21:31 | Emergency (ER) | payer MEDICARE, SELFPAY ==
--- NOTE | ~2023-04-19 | XR_ITS ---
EXAMINATION: XR chest 2V Exam Date/Time: 04/19/2023 22:20 SENIOR ACCOUNT EXECUTIVE HISTORY: chest pain Comparison: 03/11/2023. RESULT: Lines, tubes, and devices: None. Lungs and pleura: Mild diffuse reticular opacities. Cardiomediastinal silhouette: Stable. Other: No acute osseous or upper abdominal finding. IMPRESSION: Mild interstitial edema. Reviewed, dictated and finalized at location K. OR ACCOUNT EXECUTIVE IMPRESSION: Mild interstitial edema.
[2023-04-19 21:28] VITALS: BP 184/75; PULSE 90; RESP 16; TEMP 36.8; O2SAT 98
[2023-04-19 21:40] VITALS: PULSE 88
[2023-04-19 21:41] VITALS: PULSE 88; RESP 17; TEMP 36.8; O2SAT 96
--- NOTE | 2023-04-19 21:50 | ECG_ITS ---
Measurements Intervals [place] Rate: 87 P: 81 [place]: 220 QRS: -46 QRSD: 136 T: 85 QT: 416 QTc: 501 Interpretive Statements SINUS RHYTHM WITH FIRST DEGREE AV BLOCK POSSIBLE LEFT ATRIAL ENLARGEMENT [-0.1mV P-WAVE IN V1/V2] INTRAVENTRICULAR CONDUCTION DELAY [130+ ms QRS DURATION] LEFT VENTRICULAR HYPERTROPHY AND ST-T CHANGE [VOLTAGE CRITERIA PLUS ST/T ABNORMALITY] POSSIBLE SEPTAL MYOCARDIAL INFARCTION , PROBABLY OLD [30 ms Q WAVE IN V1/V2] COMPARED TO ECG 03/15/2023 13:12:00 SINUS RHYTHM NOW PRESENT FIRST DEGREE AV BLOCK NOW PRESENT Electronically Signed On 04-20-2023 15:08:40 CONFERENCE SERVICE COORDINATOR by Elio Hernandez M.D.
[2023-04-19 22:11] LABS: Basophils Absolute Auto 0.1 K/mm3 (0.0-0.1); Basophils Percent Auto 0.7 % (0.2-1.2); Eosinophils Absolute Auto 0.5 K/mm3 (0-0.3); Eosinophils Percent Auto 6.4 % (0-4.4); Hematocrit 30.2 % (37.0-47.0); Hemoglobin 9.2 g/dL (12.0-15.0); Immature Granulocyte Absolute 0.08 K/mm3 (0.00-0.031); Immature Granulocyte Percent A 1.1 % (0-0.5); Mean Corpuscular HGB Conc 30.5 g/dl (32-36); Mean Corpuscular Hemoglobin 30.6 pg (26-34); Mean Corpuscular Volume 100.3 fl (80-100); Mean Platelet Volume 9.5 fl (7.4-10.4); Monocytes Absolute Auto 0.8 K/mm3 (0.1-0.6); Monocytes Percent Auto 10.7 % (2.6-8.5); Neutrophils Absolute Auto 4.3 K/mm3 (1.3-6.7); Neutrophils Percent Auto 61.1 % (45.5-73.1); Platelet Count Result 229 k/mm3 (150-375); Red Blood Count 3.01 M/mm3 (4.2-5.4); Red Cell Distribution Width 14.4 % (11.5-14.5)
[2023-04-19 22:21] LABS: Prothrombin Time 13.4 Seconds (11.1-14.7)
[2023-04-19 22:22] LABS: Alanine Aminotransferase 17 U/L (6-35); Albumin Level 3.6 g/dL (3.5-5.1); Alkaline Phosphatase 168 U/L (38-126); Anion Gap 9 mmol/L (8-16); Aspartate Amino Transferase 27 U/L (14-36); Bilirubin,Total 0.4 mg/dL (0.2-1.3); Blood Urea Nitrogen 54 mg/dL (7-17); Calcium 10.4 mg/dL (8.4-10.2); Carbon Dioxide 26 mmol/L (22-30); Chloride 99 mmol/L (98-107); Estimated CRCL calculation 11 ml/min; Estimated Glomerular Filt Rate 12; Glucose 133 mg/dL (65-110); Lipase 255 U/L (23-300); Partial Thromboplastin Time 32.8 SECONDS (22.3-36.8); Sodium 134 mmol/L (137-145)
[2023-04-19 22:24] VITALS: BP 184/75; PULSE 90; RESP 15; O2SAT 99
[2023-04-19 22:33] LABS: Troponin I < 0.012 ng/mL (0.000-0.034)
--- NOTE | 2023-04-19 22:46 | ECG_ITS ---
Measurements Intervals [place] Rate: 90 P: 89 [place]: 179 QRS: -46 QRSD: 133 T: 97 QT: 415 QTc: 510 Interpretive Statements SINUS RHYTHM INTRAVENTRICULAR CONDUCTION DELAY [130+ ms QRS DURATION] LEFT VENTRICULAR HYPERTROPHY AND ST-T CHANGE [VOLTAGE CRITERIA PLUS ST/T ABNORMALITY] POSSIBLE SEPTAL MYOCARDIAL INFARCTION , PROBABLY OLD [30 ms Q WAVE IN V1/V2] COMPARED TO ECG 04/19/2023 21:43:35 NO SIGNIFICANT CHANGES Electronically Signed On 04-20-2023 15:11:01 BASS SINGER by Elio Hernandez M.D.
[2023-04-19] MEDS: ONDANSETRON INJ 4 MG/2 ML VIAL IV PUSH (23:04)
[2023-04-19] MEDS: MORPHINE SULFATE (*CRX) 4 MG/ML INJ IV PUSH (23:04)
[2023-04-19] MEDS: NITROGLYCERIN SL 0.4 MG TABLET SUBLINGUAL (23:08)
[2023-04-20 00:30] VITALS: BP 171/59; PULSE 82; RESP 11; O2SAT 95
--- NOTE | 2023-04-20 00:47 | ECG_ITS ---
Measurements Intervals [place] Rate: 81 P: 75 CT: 233 QRS: -47 QRSD: 137 T: 22 QT: 445 QTc: 517 Interpretive Statements SINUS RHYTHM WITH FIRST DEGREE AV BLOCK POSSIBLE LEFT ATRIAL ENLARGEMENT [-0.1mV P WAVE IN V1/V2] INTRAVENTRICULAR CONDUCTION DELAY [130+ ms QRS DURATION] LEFT VENTRICULAR HYPERTROPHY AND ST-T CHANGE [VOLTAGE CRITERIA PLUS ST/T ABNORMALITY] POSSIBLE SEPTAL MYOCARDIAL INFARCTION , PROBABLY OLD [30 ms Q WAVE IN V1/V2] COMPARED TO ECG 04/19/2023 22:46:48 NO SIGNIFICANT CHANGES Electronically Signed On 04-20-2023 15:11:40 CORNER CUTTER by Elio Hernandez M.D.
[2023-04-20 01:18] LABS: Troponin I < 0.012 ng/mL (0.000-0.034)
[2023-04-20 02:00] VITALS: BP 167/60; PULSE 80; RESP 12; O2SAT 90
[2023-04-20 02:22] VITALS: BP 159/57; PULSE 77; RESP 9; O2SAT 97
[2023-04-20 03:57] VITALS: BP 118/44; PULSE 57; RESP 9; O2SAT 99
--- NOTE | 2023-04-20 04:09 | ECG_ITS ---
Measurements Intervals [place] Rate: 55 P: 71 [place]: 203 QRS: -47 QRSD: 130 T: -37 QT: 502 QTc: 482 Interpretive Statements SINUS BRADYCARDIA POSSIBLE RIGHT VENTRICULAR CONDUCTION DELAY [RSR (QR) IN V1/V2] LEFT ANTERIOR FASCICULAR BLOCK [QRS AXIS <= -45, QR IN I, RS IN II] POSSIBLE LEFT VENTRICULAR HYPERTROPHY [VOLTAGE CRITERIA PLUS LAE OR QRS WIDENING] POSSIBLE SEPTAL MYOCARDIAL INFARCTION , PROBABLY OLD [30 ms Q WAVE IN V1/V2] COMPARED TO ECG 04/20/2023 00:44:05 SINUS BRADYCARDIA NOW PRESENT Electronically Signed On 04-20-2023 15:16:49 SENIOR QUALITY ASSURANCE ANALYST by Elio Hernandez M.D.
[2023-04-20 04:25] LABS: Troponin I 0.012 ng/mL (0.000-0.034)
--- NOTE | 2023-04-20 05:07 | ED.GENADULT ---
HPI - General Adult General Chief complaint: Chest Pain Stated complaint: chest pain History of Present Illness HPI narrative: patient is a 83-year-old female who presents emergency department with chief complaint of chest pain. Patient is a resident of a local nursing homes also end-stage renal disease on dialysis patient had an episode today where she felt sharp sensations in her chest. The patient reports it was nonradiating was given nitroglycerin by EMS without relief. Patient normally goes to dialysis Tuesday the patient reports no missing of dialysis. Related Data Home Medications Medication Instructions Recorded Confirmed carvedilol 12.5 mg tablet (Coreg) 12.5 mg PO Q12HR 10/14/22 03/15/23 hydralazine 25 mg tablet 25 mg PO Q8H 10/14/22 03/15/23 hydralazine 50 mg tablet 50 mg PO Q8H 10/14/22 03/15/23 acetaminophen 325 mg capsule 650 mg PO Q6H PRN Pain 02/24/23 03/15/23 docusate sodium 100 mg capsule 100 mg PO Q12HR Constipation 03/15/23 03/15/23 furosemide 40 mg tablet 40 mg PO DAILY 03/15/23 03/15/23 guaifenesin 100 mg/5 mL oral syrup 200 mg PO Q6H PRN Cough 03/15/23 03/15/23 nifedipine 30 mg tablet,extended 90 mg PO DAILY 03/15/23 03/15/23 release 24 hr (Procardia XL) ondansetron 4 mg disintegrating 4 mg PO Q6H PRN Nausea 03/15/23 03/15/23 tablet Allergies Allergy/AdvReac Type Severity Reaction Status Date / Time benazepril Allergy Severe Swelling Verified 01/28/23 17:23 of Lip/Tongue/Throat lisinopril Allergy Severe Anaphylaxis Verified 01/28/23 17:23 Review of Systems Review of Systems: A 10 system review of systems was completed on the patient and is negative except for what is stated in the HPI. Nursing and ancillary documentation was reviewed. [facility] Past Medical History Medical History Anemia Atherosclerotic heart disease of [place] coronary artery without angina pectoris Carotid artery disease Congestive heart failure Coronary artery disease Diastolic dysfunction End stage renal disease Essential (primary) hypertension Hypothyroidism, unspecified Obstructive sleep apnea Primary generalized (osteo)arthritis Proteinuria due to type 2 diabetes mellitus Renal osteodystrophy Screening mammogram, encounter for Type II diabetes mellitus with renal manifestations Vitamin D deficiency Surgical History Surgical History History of bunionectomy of left great toe History of right hip replacement Presence of left artificial knee joint Presence of right artificial knee joint Status post cataract extraction of both eyes with insertion of intraocular lens Status post creation of arteriovenous fistula Left upper arm Family History Family History Mother Diabetes mellitus Acute myocardial infarction Family history of diabetes mellitus in first degree relative Patient's mother is Hypertension Breast cancer Uterine cancer Sibling Family history of sarcoidosis Cerebrovascular accident Father , age 49 MD Acute myocardial infarction Patient's mother is Hypertension Daughter Family history of lupus erythematosus Family history of arthritis Hypertension Social History Social History Social History: The patient has 9 children. 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 She is . She used to smoke many years ago. She smoked between 1-2 packs per cigarettes per day for 15 years prior to quitting she used to drink alcohol on occasion but has not done so in racing years. She denies illicit substance use. She dominates her daughter who lives in [place] to be the individual who would make decisions for her if she is unable. Code status: Full code (she
[2023-04-20 06:00] VITALS: BP 140/43; PULSE 56; RESP 14; O2SAT 97
== END 2023-04-20 07:05 ==
PROVIDERS: Emergency Provider Emergency Medicine; PCP Nurse Practitioner Family
DX: R07.89 Other chest pain (principal); D64.9 Anemia, unspecified; I25.10 Atherosclerotic heart disease of native coronary artery without angina pectoris; I13.2 Hypertensive heart and chronic kidney disease with heart failure and with stage 5 chronic kidney disease, or end stage renal disease; E11.22 Type 2 diabetes mellitus with diabetic chronic kidney disease; N18.6 End stage renal disease; I50.9 Heart failure, unspecified
CPT/HCPCS: 36415; 71046; 80053; 83690; 84484; 85025; 85610; 85730; 93005; 96374; 96375; 99284; A9270; J2270; J2405

== ENCOUNTER 2023-04-23 22:18 | Inpatient (IN) | payer MEDICARE, SELFPAY ==
--- NOTE | ~2023-04-23 | XR_ITS ---
EXAMINATION: XR chest 1V portable DATE: 04/23/2023 23:16 INDICATION: Dyspnea. TECHNIQUE: A single frontal view of the chest was obtained. COMPARISON: Chest 2 views 04/19/23, chest CT 03/15/2023 FINDINGS: The patient is rotated to her left. There is a diffuse interstitial pattern in the lungs, c onsistent mild pulmonary edema. No pleural effusion or pneumothorax. Cardiomegaly is noted. IMPRESSION: 1. Mild pulmonary edema. 2. Cardiomegaly. Reviewed, dictated and finalized at location A. OPSYCHOLOGIST
--- NOTE | ~2023-04-23 | XR_ITS ---
EXAMINATION: XR chest 1V portable DATE: 04/26/2023 12:56 INDICATION: Shortness of breath. TECHNIQUE: A single frontal view of the chest was obtained. COMPARISON: Chest single view 04/23/2023 FINDINGS: The patient is rotated to her left. There is a diffuse interstitial pattern, consistent mil d pulmonary edema. No pleural effusion or pneumothorax. Cardiomegaly is noted. IMPRESSION: 1. Mild pulmonary edema. 2. Cardiomegaly. Reviewed, dictated and finalized at location A. GOW DEALER
[2023-04-23 22:18] VITALS: BP 203/75; PULSE 96; RESP 21; TEMP 37.6; O2SAT 87
[2023-04-23 22:29] VITALS: O2SAT 98
--- NOTE | 2023-04-23 22:34 | ED.SOB ---
HPI - SOB/Dyspnea General Chief Complaint: Shortness of Breath/Dyspnea Stated Complaint: sob Time Seen by Provider: 04/23/23 22:24 History of Present Illness HPI Narrative: 83-year-old female With a history of ESRD on hemodialysis, hyperlipidemia, hypothyroidism, hypertension, type 2 diabetes, reports for evaluation via EMS from [facility] for shortness of breath. Patient states her shortness of breath started today while she was sitting. patient reports anterior chest discomfort that is nonradiating and nausea. Patient reports associated orthopnea. Denies cough or congestion, fever, abdominal pain, vomiting. Has some lower extremity edema which is unchanged from baseline. She is on hemodialysis and runs Tuesday, Tuesday, Tuesday. She has not missed any dialysis appointments. Related Data Home Medications Medication Instructions Recorded Confirmed carvedilol 12.5 mg tablet (Coreg) 12.5 mg PO Q12HR 10/14/22 03/15/23 hydralazine 25 mg tablet 25 mg PO Q8H 10/14/22 03/15/23 hydralazine 50 mg tablet 50 mg PO Q8H 10/14/22 03/15/23 acetaminophen 325 mg capsule 650 mg PO Q6H PRN Pain 02/24/23 03/15/23 docusate sodium 100 mg capsule 100 mg PO Q12HR Constipation 03/15/23 03/15/23 furosemide 40 mg tablet 40 mg PO DAILY 03/15/23 03/15/23 guaifenesin 100 mg/5 mL oral syrup 200 mg PO Q6H PRN Cough 03/15/23 03/15/23 nifedipine 30 mg tablet,extended 90 mg PO DAILY 03/15/23 03/15/23 release 24 hr (Procardia XL) ondansetron 4 mg disintegrating 4 mg PO Q6H PRN Nausea 03/15/23 03/15/23 tablet Allergies Allergy/AdvReac Type Severity Reaction Status Date / Time benazepril Allergy Severe Swelling Verified 01/28/23 17:23 of Lip/Tongue/Throat lisinopril Allergy Severe Anaphylaxis Verified 01/28/23 17:23 Review of Systems Review of Systems: CONSTITUTIONAL: Denies fever, chills, or sweats. EYES: Denies visual changes, redness, or discharge. ENT: Denies rhinorrhea, congestion, sore throat, or otalgia. CARDIOVASCULAR: Denies chest pain, palpitations, or edema. RESPIRATORY: see HPI GASTROINTESTINAL: Denies abdominal pain, nausea, vomiting, or diarrhea. GENITOURINARY: Denies dysuria or hematuria. SKIN: Denies rash or itching. MUSCULOSKELETAL: Denies back pain, joint pain, or myalgia. NEUROLOGIC: Denies headache, numbness, or weakness. PSYCHIATRIC: Denies anxiety or depression. [facility] Past Medical History Medical History Anemia Atherosclerotic heart disease of [place] coronary artery without angina pectoris Carotid artery disease Congestive heart failure Coronary artery disease Diastolic dysfunction End stage renal disease Essential (primary) hypertension Hypothyroidism, unspecified Obstructive sleep apnea Primary generalized (osteo)arthritis Proteinuria due to type 2 diabetes mellitus Renal osteodystrophy Screening mammogram, encounter for Type II diabetes mellitus with renal manifestations Vitamin D deficiency Surgical History Surgical History History of bunionectomy of left great toe History of right hip replacement Presence of left artificial knee joint Presence of right artificial knee joint Status post cataract extraction of both eyes with insertion of intraocular lens Status post creation of arteriovenous fistula Left upper arm Family History Family History Mother Diabetes mellitus Acute myocardial infarction Family history of diabetes mellitus in first degree relative Patient's mother is Hypertension Breast cancer Uterine cancer Sibling Family history of sarcoidosis Cerebrovascular accident Father , age 49 [place] Acute myocardial infarction Patient's mother is Hypertension Daughter Family history of lupus erythematosus Family history of arthritis Hypertension Social Histor
--- NOTE | 2023-04-23 22:36 | ECG_ITS ---
Measurements Intervals [place] Rate: 99 P: 78 NC: 196 QRS: -45 QRSD: 137 T: 112 QT: 384 QTc: 494 Interpretive Statements SINUS RHYTHM POSSIBLE LEFT ATRIAL ENLARGEMENT [-0.1mV P-WAVE IN V1/V2] LEFT ANTERIOR FASCICULAR BLOCK LEFT VENTRICULAR HYPERTROPHY AND ST-T CHANGE [VOLTAGE CRITERIA PLUS ST/T ABNORMALITY] ABNORMAL ECG COMPARED TO ECG 04/20/2023 04:06:00 SINUS RHYTHM NOW PRESENT INTRAVENTRICULAR CONDUCTION DELAY NOW PRESENT ST (T WAVE) DEVIATION NOW PRESENT Electronically Signed On 04-24-2023 8:20:14 PATIENT CARE SECRETARY by Tiburcio Plunkett M.D.
[2023-04-23 23:03] LABS: Alveolar/Arterial O2 Gradient 65.7 mmHg; Base Excess ABG -4.2 mEq/l (+/-2.0); Fractional Inspired Oxygen 28 %; HCO3 ABG 23.2 mEq/l (22.0-26.0); Oxygen Content ABG 13.3 %vol (16.0-22.0); Oxygen Saturation ABG 91.6 % (95.0-100.0); Oxyhemoglobin 89.4 % THb (90.0-100.0); PCO2 ABG 53.2 mmHg (35.0-45.0); PO2 ABG 71.2 mmHg (80.0-100.0); PO2 FiO2 Ratio Arterial Blood 2.54 %; Total Hemoglobin 10.5 g/dL (12.0-18.0)
[2023-04-23 23:06] LABS: Modified Allen's Test Pass; Site Drawn RIGHT RADIAL; pH ABG 7.257 (7.350-7.450)
[2023-04-23 23:07] LABS: Device NASAL CANNULA
[2023-04-23 23:09] LABS: Basophils Absolute Auto 0.1 K/mm3 (0.0-0.1); Basophils Percent Auto 0.6 % (0.2-1.2); Eosinophils Absolute Auto 0.4 K/mm3 (0-0.3); Eosinophils Percent Auto 3.7 % (0-4.4); Hematocrit 32.4 % (37.0-47.0); Hemoglobin 9.9 g/dL (12.0-15.0); Immature Granulocyte Absolute 0.11 K/mm3 (0.00-0.031); Lymphocytes Absolute Auto 1.63 K/mm3 (0.9-3.2); Lymphocytes Percent Auto 14.4 % (18.3-44.2); Mean Corpuscular HGB Conc 30.6 g/dl (32-36); Mean Corpuscular Hemoglobin 31.1 pg (26-34); Mean Corpuscular Volume 101.9 fl (80-100); Mean Platelet Volume 9.8 fl (7.4-10.4); Neutrophils Absolute Auto 8.1 K/mm3 (1.3-6.7); Neutrophils Percent Auto 71.3 % (45.5-73.1); Platelet Count Result 319 k/mm3 (150-375); Red Blood Count 3.18 M/mm3 (4.2-5.4); Red Cell Distribution Width 14.6 % (11.5-14.5); White Blood Count 11.3 K/mm3 (4.5-10.0)
[2023-04-23 23:17] VITALS: PULSE 99; RESP 27; O2SAT 87; O2SAT 92
[2023-04-23 23:18] LABS: Prothrombin Time 14.1 Seconds (11.1-14.7)
[2023-04-23 23:19] LABS: Partial Thromboplastin Time 30.6 SECONDS (22.3-36.8)
[2023-04-23 23:31] VITALS: BP 211/79; PULSE 99; RESP 28; O2SAT 96
[2023-04-23 23:41] LABS: Influenza A QL RT-PCR Negative (Negative); Influenza B QL RT-PCR Negative (Negative); RSV RNA, RT-PCR Negative (Negative); SARS-CoV-2 RNA PCR Negative (Negative)
[2023-04-23 23:50] VITALS: PULSE 100; RESP 33; O2SAT 98
[2023-04-23 23:57] VITALS: O2SAT 100
[2023-04-24] VITALS (22 sets, daily range): BP systolic 119–213; BP diastolic 35–76; PULSE 63–84; RESP 12–21; TEMP 36.5–36.9; O2SAT 95–100; BMI 31.1
[2023-04-24 00:40] LABS: Alveolar/Arterial O2 Gradient 79.8 mmHg; Base Excess ABG -0.2 mEq/l (+/-2.0); Carboxyhemoglobin 1.5 % THb (0-2.0); Device NON-INVASIVE VENT; Fractional Inspired Oxygen 32 %; HCO3 ABG 26.1 mEq/l (22.0-26.0); Methemoglobin ABG 0.2 %THb (0-1.5); Modified Allen's Test Pass; Oxygen Content ABG 11.2 %vol (16.0-22.0); Oxyhemoglobin 93.3 % THb (90.0-100.0); PCO2 ABG 51.3 mmHg (35.0-45.0); PO2 ABG 88.3 mmHg (80.0-100.0); PO2 FiO2 Ratio Arterial Blood 2.76 %; Site Drawn RIGHT RADIAL; Total Hemoglobin 8.4 g/dL (12.0-18.0); pH ABG 7.324 (7.350-7.450)
[2023-04-24 00:41] LABS: Non-Invasive Expiratory Pressure 5 CMH2O; Non-Invasive Inspiratory Pressure 10 CMH2O; Non-Invasive Vent Rate 12 /MIN
[2023-04-24] MEDS: hydrALAZINE HCL 20 MG/ML VIAL 10 MG IV PUSH (00:50)
[2023-04-24 01:20] LABS: Alanine Aminotransferase 18 U/L (6-35); Albumin Level 4.1 g/dL (3.5-5.1); Alkaline Phosphatase 139 U/L (38-126); Anion Gap 9 mmol/L (8-16); Aspartate Amino Transferase 32 U/L (14-36); Bilirubin,Total 0.6 mg/dL (0.2-1.3); Blood Urea Nitrogen 51 mg/dL (7-17); Calcium 10.8 mg/dL (8.4-10.2); Carbon Dioxide 26 mmol/L (22-30); Chloride 101 mmol/L (98-107); Estimated CRCL calculation 11 ml/min; Estimated Glomerular Filt Rate 13; Glucose 163 mg/dL (65-110); Lipase 104 U/L (23-300); Potassium 4.5 mmol/L (3.4-5.0); Sodium 136 mmol/L (137-145)
[2023-04-24 01:25] LABS: Magnesium 2.2 mg/dL (1.6-2.3)
[2023-04-24 01:31] LABS: NT Pro B Type Natriuretic Pept > 30000 pg/mL (19.9-100); Troponin I < 0.012 ng/mL (0.000-0.034)
--- NOTE | 2023-04-24 02:21 | PM.IMHP ---
H&P: HPI History of Present Illness Date/Time: 04/24/23 02:21 Chief Complaint: shortness of breath Narrative: This is an 83-year-old female with past medical history significant for end-stage renal disease on hemodialysis, congestive heart failure, hypertension, coronary artery disease, obstructive sleep apnea, type 2 diabetes mellitus. Patient was brought to the emergency room for evaluation from her [facility] due to concerns for shortness of breath. In the emergency room patient was placed on BiPAP. Most of the history has been obtained upon reviewing medical records. Preliminary workup was significant for ABG with a pH of 7.257 pCO2 53 PO2 of 70 chemistry panel shows BUN of 51 creatinine of 4.1. A chest x-ray was reported as: EXAMINATION: XR chest 1V portable DATE: 04/23/2023 23:16 INDICATION: Dyspnea. TECHNIQUE: A single frontal view of the chest was obtained. COMPARISON: Chest 2 views 04/19/23, chest CT 03/15/2023 FINDINGS: The patient is rotated to her left. There is a diffuse interstitial pattern in the lungs, consistent mild pulmonary edema. No pleural effusion or pneumothorax. Cardiomegaly is noted. IMPRESSION: 1. Mild pulmonary edema. 2. Cardiomegaly. Patient is been admitted for further evaluation management and treatment. Review of Systems Review of Systems: ROS unobtainable: Yes unobtainable due to medical condition ( respiratory failure on BiPAP) [facility] Past Medical History Medical History Anemia Atherosclerotic heart disease of [place] coronary artery without angina pectoris Carotid artery disease Congestive heart failure Coronary artery disease Diastolic dysfunction End stage renal disease Essential (primary) hypertension Hypothyroidism, unspecified Obstructive sleep apnea Primary generalized (osteo)arthritis Proteinuria due to type 2 diabetes mellitus Renal osteodystrophy Screening mammogram, encounter for Type II diabetes mellitus with renal manifestations Vitamin D deficiency Surgical History Surgical History History of bunionectomy of left great toe History of right hip replacement Presence of left artificial knee joint Presence of right artificial knee joint Status post cataract extraction of both eyes with insertion of intraocular lens Status post creation of arteriovenous fistula Left upper arm Family History Family History Mother Diabetes mellitus Acute myocardial infarction Family history of diabetes mellitus in first degree relative Patient's mother is Hypertension Breast cancer Uterine cancer Sibling Family history of sarcoidosis Cerebrovascular accident Father , age 49 [place] Acute myocardial infarction Patient's mother is Hypertension Daughter Family history of lupus erythematosus Family history of arthritis Hypertension Social History Social History Social History: The patient has 9 children. 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 She is . She used to smoke many years ago. She smoked between 1-2 packs per cigarettes per day for 15 years prior to quitting she used to drink alcohol on occasion but has not done so in racing years. She denies illicit substance use. She dominates her daughter who lives in [place] to be the individual who would make decisions for her if she is unable. Code status: Full code (she states she would not want to be on a ventilator long-term) Smoking packs per day: 1.5 Smoking cigarettes per day: 30.0 Years smoked: 15 Smoking pack-years: 22.50 Smoking status: Former smoker Tobacco type: cigarettes Second hand tobacco smoke exposure: Yes Additional smoking assessment comments: 40 years ago Alcohol intake: ne
[2023-04-24] MEDS: FUROSEMIDE INJ 40 MG/4 ML VIAL IV PUSH (02:34)
[2023-04-24 03:07] LABS: CRP 3.2 mg/dL (<1.0)
--- NOTE | 2023-04-24 03:56 | ADMGEN ---
This patient, Lilian Mandel, was admitted to [facility]. Patient/family oriented to hospital policies and general routines including ID bracelet, bed and alarms, visiting hours, pain management, procedures, bathroom and other care routines, personal items, smoking policy, room service/diet, and visiting hours. Information on how to activate the Rapid Response Team has been discussed. Patient/Family are encouraged to report perceived risks to care and to ask questions if they do not understand what they are told or what they should do.
[2023-04-24 05:47] LABS: Troponin I < 0.012 ng/mL (0.000-0.034)
[2023-04-24 05:52] LABS: Procalcitonin 6.6 ng/mL
[2023-04-24 08:06] LABS: Troponin I < 0.012 ng/mL (0.000-0.034)
--- NOTE | 2023-04-24 11:30 | PM.CNNEP ---
Assessment and Plan Assessment and plan (1) End stage renal disease: Code(s): N18.6 - End stage renal disease Status: Chronic Assessment and Plan: HD tomorrow continue M/W/F dialysis schedule during hospital stay follow electrolytes, volume status, and clearance (2) Acute hypoxemic respiratory failure: Code(s): J96.01 - Acute respiratory failure with hypoxia Status: Acute Assessment and Plan: as noted on admission presumably due to mild pulmonary edema oxygen support as needed IV diuretics since she does make some urine fluid removal with dialysis (3) Essential (primary) hypertension: Code(s): I10 - Essential (primary) hypertension Status: Chronic Assessment and Plan: elevated on admission possible element of flash pulmonary edema due to HTN(?) reasonable control at this time resume home medications and adjust as needed (4) Anemia: Qualifiers: Anemia type: due to chronic kidney disease Chronic kidney disease stage: stage 4 (severe) Qualified Code(s): N18.4 - Chronic kidney disease, stage 4 (severe); D63.1 - Anemia in chronic kidney disease Code(s): D64.9 - Anemia, unspecified Status: Chronic Assessment and Plan: due to ESRD Epogen with HD follow trend of H/H (5) Diabetes: Code(s): E11.9 - Type 2 diabetes mellitus without complications Status: Chronic Assessment and Plan: reported history on no medications -- presumably diet controlled now... follow sugars intermittently I will continue to follow the patient with you while she remains hospitalized and make further recommendations as needed. Thank you for allowing me to participate in the care this patient. History of Present Illness Reason for Consult Consult date: 04/24/23 Reason for consult: end stage renal disease Chief Complaint Chief complaint: Acute Hypoxic Respiratory Failure History of Present Illness Narrative: The patient is an 83-year-old female with a past medical history as outlined below who presented to [facility] Emergency Room from her nursing facility for further evaluation of shortness of breath. Apparently, the patient shortness of breath started yesterday afternoon when she was sitting in her chair at rest. Associated symptoms include anterior chest discomfort which was nonradiating as well as nausea. She also reports some associated orthopnea but denies any cough, congestion, fever, abdominal pain, or vomiting. She does have some lower extremity edema but this is unchanged from her baseline. She reports compliance with her scheduled dialysis treatments as well. Given these acute complaints, she was transported to the emergency room for further assessment. Workup and evaluation emergency room demonstrated the patient to be hemodynamically stable if not hypertensive (systolic BP was greater than 200) in association with hypoxia. Her oxygen saturations were 87% on room air and she was placed on 2 L of supplemental oxygen with improvement to 98%. her ABG showed a respiratory acidosis and she was placed on BiPAP with improvement noted by repeat ABG. Routine blood test demonstrated CBC with a mildly elevated white blood cell count 11.3 stable anemia/ hemoglobin of 9.9, and a chemistry that was consistent with her known history of end-stage renal disease. Viral testing was negative for COVID, influenza, or RSV. Her chest x-ray demonstrated mild pulmonary edema and her EKG was negative for acute ischemia with a normal troponin. She received IV hydralazine with improvement in her systolic BP down to 180s and a dose of IV Lasix and she still does make some urine output given her chest x-ray findings. Given her constellation of symptoms and laboratory/imaging findings, she was admitted the hospital for further evaluation and therapy. Since her admission, her BiPAP has been weaned down to oxygen by noah
--- NOTE | 2023-04-24 17:29 | PM.IMPN ---
Progress Note: A&P Assessment and Plan (1) Acute hypoxic respiratory failure: Code(s): J96.01 - Acute respiratory failure with hypoxia Status: Acute Assessment and Plan: admit to IMU continue use of BiPAP supportive care continue to monitor 04/24/23:Wean oxygen; incentive spirometry; DuoNebs (2) ESRD on hemodialysis: Code(s): N18.6 - End stage renal disease; Z99.2 - Dependence on renal dialysis Status: Acute Assessment and Plan: continue hemodialysis nephrology consult (3) Pulmonary edema: Qualifiers: Chronicity: acute Qualified Code(s): J81.0 - Acute pulmonary edema Code(s): J81.1 - Chronic pulmonary edema Status: Acute Assessment and Plan: gentle diuresis as needed patient is also on hemodialysis (4) Hypertension: Qualifiers: Hypertension type: unspecified Qualified Code(s): I10 - Essential (primary) hypertension Code(s): I10 - Essential (primary) hypertension Status: Acute Assessment and Plan: restart home meds as needed (5) Obstructive sleep apnea: Code(s): G47.33 - Obstructive sleep apnea (adult) (pediatric) Status: Chronic Assessment and Plan: currently on continuous BiPAP Time Spent With Patient Time with patient: 25 - 35 minutes Subjective Date/time seen: 04/24/23 17:29 Interval history: Seen and examined; tired-looking and in respiratory distress. Review of Systems Review of Systems: ROS unobtainable: Yes unobtainable due to medical condition ( respiratory failure on BiPAP) Eyes: Eyes: Reports no additional eye complaints ENT: Reports system reviewed and no additional complaints, except as documented Cardiovascular: Cardiovascular: Reports no additional cardiovascular complaints Respiratory: Respiratory: Reports chest congestion, Reports dyspnea and Reports dyspnea on exertion Gastrointestinal: Gastrointestinal: Reports no additional gastrointestinal complaints Musculoskeletal: Musculoskeletal: Reports no additional musculoskeletal complaints Integumentary/Breasts: Skin/Breast: Reports system reviewed and no additional complaints, except as docu Neurologic: Reports system reviewed and no additional complaints, except as documented and Denies confusion Psychiatric: Psychiatric: Reports no additional psychiatric complaints Exam Narrative: patient is laying in a stretcher on BiPAP Const: General: comfortable, no acute distress, well developed, ill appearing, lethargic, patient obtunded, tired appearing, average body habitus and edematous Nutritional Appearance: average body habitus and edematous Orientation/consciousness: patient obtunded and lethargic HENMT: Head: normal to inspection, normocephalic and atraumatic Ears: hearing grossly normal bilaterally Face/Nose/Sinus: normal facial exam Face and sinus: normal facial exam Eyes: General: appearance normal, both eyes and all related structures Pupils: Equal, round and reactive pupils present EOM: EOMs intact bilaterally Neck: Neck: full ROM, no lymphadenopathy and no JVD Thyroid: thyroid normal Lymphatic: no lymphadenopathy noted Resp: Effort & Inspection: not tachypneic, symmetric chest movement and other ( on BiPAP) Auscultation: rales, wheezes and diminished lung sounds Cardio: Jugular venous distension: no JVD Rate: regular rate Rhythm: regular rhythm Heart sounds: S1 normal heart sound present and S2 normal heart sound present : General: Yes deferred Skin: Rashes: no rashes Wounds: no wounds Neuro: General: no focal motor deficits, CN's II-XI intact bilaterally, patient obtunded and Unable to assess gait Cranial nerves: Yes CN's II-XII intact bilaterally and Yes Equal, round and reactive pupils present Cognition (Neuro): abnormal cognition ( obtundation/lethargy) Gait exam (Neuro): Unable to assess gait Motor exam (neuro): 5/5 motor strength present throughout Extrem: Genera
[2023-04-24] MEDS: BUMETANIDE INJ 2.5 MG/10 ML VIAL 2 MG IV PUSH (17:50)
[2023-04-24] MEDS: IPRATROPIUM 0.5 MG/ALBUTEROL SULFATE 2.5 MG AMPUL.NEB 3 ML INHALATION (19:46)
[2023-04-25] VITALS (45 sets, daily range): BP systolic 135–186; BP diastolic 41–82; PULSE 57–86; RESP 16–20; TEMP 35.8–37; O2SAT 94–100
[2023-04-25] MEDS: IPRATROPIUM 0.5 MG/ALBUTEROL SULFATE 2.5 MG AMPUL.NEB 3 ML INHALATION ×5 (00:19→16:27)
[2023-04-25 05:10] LABS: Basophils Percent Auto 0.6 % (0.2-1.2); Eosinophils Absolute Auto 0.4 K/mm3 (0-0.3); Eosinophils Percent Auto 6.8 % (0-4.4); Hematocrit 25.1 % (37.0-47.0); Hemoglobin 7.5 g/dL (12.0-15.0); Immature Granulocyte Absolute 0.04 K/mm3 (0.00-0.031); Immature Granulocyte Percent A 0.6 % (0-0.5); Lymphocytes Absolute Auto 1.32 K/mm3 (0.9-3.2); Lymphocytes Percent Auto 21.3 % (18.3-44.2); Mean Corpuscular HGB Conc 29.9 g/dl (32-36); Mean Corpuscular Hemoglobin 31.1 pg (26-34); Mean Corpuscular Volume 104.1 fl (80-100); Mean Platelet Volume 9.8 fl (7.4-10.4); Monocytes Absolute Auto 0.8 K/mm3 (0.1-0.6); Monocytes Percent Auto 12.7 % (2.6-8.5); Neutrophils Absolute Auto 3.6 K/mm3 (1.3-6.7); Platelet Count Result 213 k/mm3 (150-375); Red Blood Count 2.41 M/mm3 (4.2-5.4); White Blood Count 6.2 K/mm3 (4.5-10.0)
[2023-04-25 05:36] LABS: Alanine Aminotransferase 12 U/L (6-35); Albumin Level 3.2 g/dL (3.5-5.1); Alkaline Phosphatase 66 U/L (38-126); Anion Gap 8 mmol/L (8-16); Aspartate Amino Transferase 28 U/L (14-36); Bilirubin,Total 0.4 mg/dL (0.2-1.3); Blood Urea Nitrogen 66 mg/dL (7-17); Calcium 9.7 mg/dL (8.4-10.2); Carbon Dioxide 26 mmol/L (22-30); Chloride 100 mmol/L (98-107); Estimated CRCL calculation 8 ml/min; Estimated Glomerular Filt Rate 9; Glucose 73 mg/dL (65-110); Potassium 4.7 mmol/L (3.4-5.0); Sodium 134 mmol/L (137-145)
[2023-04-25 05:50] LABS: Platelet Estimate Adequate (Adequate)
[2023-04-25 05:51] LABS: Anisocytosis 1+ (NORMAL); Burr Cells 1+ (NORMAL); Hypochromasia 2+ (NORMAL); Ovalocytes 1+ (NORMAL); Poikilocytosis 1+ (NORMAL); Schistocytes None Seen (NORMAL)
[2023-04-25 06:05] LABS: Hepatitis B Surface Antigen Negative (Negative)
[2023-04-25 06:25] LABS: Hepatitis B Surface Anti Res Positive
--- NOTE | 2023-04-25 09:40 | PM.PNNEP ---
Progress Note: A&P Assessment and Plan (1) End stage renal disease: Code(s): N18.6 - End stage renal disease Status: Chronic Assessment and Plan: HD today continue M/W/F dialysis schedule during hospital stay follow electrolytes, volume status, and clearance (2) Acute hypoxemic respiratory failure: Code(s): J96.01 - Acute respiratory failure with hypoxia Status: Acute Assessment and Plan: as noted on admission presumably due to mild pulmonary edema if no improvement with ultrafiltration/fluid removal, consider other causes... oxygen support as needed fluid removal with dialysis (3) Essential (primary) hypertension: Code(s): I10 - Essential (primary) hypertension Status: Chronic Assessment and Plan: elevated on admission possible element of flash pulmonary edema due to HTN(?) reasonable control at this time back on home medications and adjust as needed (4) Anemia: Qualifiers: Anemia type: due to chronic kidney disease Chronic kidney disease stage: stage 4 (severe) Qualified Code(s): N18.4 - Chronic kidney disease, stage 4 (severe); D63.1 - Anemia in chronic kidney disease Code(s): D64.9 - Anemia, unspecified Status: Chronic Assessment and Plan: due to ESRD Epogen with HD follow trend of H/H (5) Diabetes: Code(s): E11.9 - Type 2 diabetes mellitus without complications Status: Chronic Assessment and Plan: reported history on no medications -- presumably diet controlled now... follow sugars intermittently Will continue to follow. Subjective Date/time seen: 04/25/23 09:40 Interval history: Follow-up for end stage renal disease on hemodialysis. Tolerating hemodialysis treatment at the time of my visit (seen on HD at 9:30AM); breating/respiratory status seems better although patient endorses it is because of the supplemental oxygen; no apparent distress noted. Exam Narrative: General: elderly but WD/WN female in NAD Heart: normal S1 and S2; no rub Lungs: coarse and decreased at bases Abdomen: soft, nontender, nondistended, positive bowel sounds Extremities: no cyanosis or clubbing; no edema Skin: warm and dry Objective Data Vital Signs Vital Signs: Vital Signs Temp Pulse Resp BP Pulse Ox O2 Del Method O2 Flow Rate 04/25/23 08:38 98.1 F 69 16 164/70 H 97 04/25/23 08:38 2 04/25/23 08:00 99 Nasal Cannula 1 04/25/23 08:00 70 04/25/23 07:47 98.4 F 65 20 151/41 H 99 04/25/23 07:42 68 18 04/25/23 07:37 64 18 98 Nasal Cannula 2 04/25/23 07:31 64 18 04/25/23 06:04 98.6 F 64 18 138/54 L 100 04/25/23 04:16 86 20 04/25/23 04:06 79 20 04/25/23 04:00 100 Nasal Cannula 1 04/25/23 04:00 64 04/25/23 02:00 68 04/25/23 00:00 100 Room Air 04/25/23 00:00 71 04/25/23 00:34 98.4 F 69 16 145/46 H 100 04/25/23 00:30 84 20 04/25/23 00:19 82 20 04/24/23 23:06 67 20 96 BiPAP 04/24/23 22:00 69 04/24/23 20:00 100 Nasal Cannula 1 04/24/23 20:00 70 04/24/23 20:31 98.4 F 67 18 143/41 H 100 04/24/23 19:57 84 20 04/24/23 19:51 99 Nasal Cannula 1 04/24/23 19:50 78 20 04/24/23 18:00 66 04/24/23 16:00 67 04/24/23 14:00 68 04/24/23 12:00 66 04/24/23 16:00 99 Nasal Cannula 1 04/24/23 12:00 100 Nasal Cannula 1 04/24/23 16:00 98.4 F 66 20 119/37 L 99 04/24/23 12:00 98.0 F 66 16 138/35 L 99 Intake/Output Intake/Output: Intake & Output 04/22/23 04/23/23 04/24/23 04/25/23 23:59 23:59 23:59 23:59 Intake Total 900 640 Output Total 240 Balance 660 640 Meds/Results Medications: Active Medications Generic Name Dose Route Start Last Admin Trade Name Freq PRN Reason Stop Dose Admin
[2023-04-25] MEDS: EPOETIN ALFA-EPBX 10,000 UNITS/ML VIAL 10000 UNITS IV PUSH (10:28)
[2023-04-25] MEDS: HEPARIN SODIUM 1,000 UNITS/ML VIAL 5000 UNITS (10:30)
[2023-04-25] MEDS: SODIUM CHLORIDE 0.9% IV 1,000 ML 999 ML IV CONT (10:35)
--- NOTE | 2023-04-25 16:17 | PC.NURSE ---
Pt having elevated BPs. No PO or home meds have been ordered. Reported to Dr. Hook. No orders received at this time
[2023-04-25] MEDS: NIFEdipine 30 MG TAB.ER.24 90 MG PO (17:24)
[2023-04-25] MEDS: hydrALAZINE HCL 50 MG TABLET PO ×2 (17:24→21:34)
[2023-04-25] MEDS: carvediloL 12.5 MG TABLET PO ×2 (17:25→21:34)
--- NOTE | 2023-04-25 17:38 | PM.IMPN ---
Progress Note: A&P Assessment and Plan (1) Acute hypoxic respiratory failure: Code(s): J96.01 - Acute respiratory failure with hypoxia Status: Acute Assessment and Plan: admit to IMU continue use of BiPAP supportive care continue to monitor 04/24/23:Wean oxygen; incentive spirometry; DuoNebs 04/25/23: Will DC tomorrow (2) ESRD on hemodialysis: Code(s): N18.6 - End stage renal disease; Z99.2 - Dependence on renal dialysis Status: Acute Assessment and Plan: continue hemodialysis nephrology consult (3) Pulmonary edema: Qualifiers: Chronicity: acute Qualified Code(s): J81.0 - Acute pulmonary edema Code(s): J81.1 - Chronic pulmonary edema Status: Acute Assessment and Plan: gentle diuresis as needed patient is also on hemodialysis (4) Hypertension: Qualifiers: Hypertension type: unspecified Qualified Code(s): I10 - Essential (primary) hypertension Code(s): I10 - Essential (primary) hypertension Status: Acute Assessment and Plan: restart home meds as needed (5) Obstructive sleep apnea: Code(s): G47.33 - Obstructive sleep apnea (adult) (pediatric) Status: Chronic Assessment and Plan: currently on continuous BiPAP Time Spent With Patient Time with patient: 25 - 35 minutes Subjective Date/time seen: 04/25/23 17:38 Interval history: Follow-up for end stage renal disease on hemodialysis. Tolerating hemodialysis treatment at the time of my visit (seen on HD at 9:30AM); breating/respiratory status seems better although patient endorses it is because of the supplemental oxygen; no apparent distress noted. Review of Systems Review of Systems: ROS unobtainable: Yes unobtainable due to medical condition ( respiratory failure on BiPAP) Eyes: Eyes: Reports no additional eye complaints ENT: Reports system reviewed and no additional complaints, except as documented Cardiovascular: Cardiovascular: Reports no additional cardiovascular complaints, Reports dyspnea and Reports dyspnea on exertion Respiratory: Respiratory: Reports chest congestion, Reports dyspnea and Reports dyspnea on exertion Gastrointestinal: Gastrointestinal: Reports no additional gastrointestinal complaints Musculoskeletal: Musculoskeletal: Reports no additional musculoskeletal complaints Integumentary/Breasts: Skin/Breast: Reports system reviewed and no additional complaints, except as docu Neurologic: Reports system reviewed and no additional complaints, except as documented and Denies confusion Psychiatric: Psychiatric: Reports no additional psychiatric complaints and Denies confusion Exam Narrative: patient is laying in a stretcher on BiPAP Const: General: comfortable, no acute distress, well developed, ill appearing, lethargic, patient obtunded, tired appearing, average body habitus and edematous; No confusion Nutritional Appearance: average body habitus and edematous Orientation/consciousness: No confusion, patient obtunded and lethargic HENMT: Head: normal to inspection, normocephalic and atraumatic Ears: hearing grossly normal bilaterally Face/Nose/Sinus: normal facial exam Face and sinus: normal facial exam Eyes: General: appearance normal, both eyes and all related structures Pupils: Equal, round and reactive pupils present EOM: EOMs intact bilaterally Neck: Neck: full ROM, no lymphadenopathy and no JVD Thyroid: thyroid normal Lymphatic: no lymphadenopathy noted Resp: Effort & Inspection: not tachypneic, symmetric chest movement and other ( on BiPAP) Auscultation: rales, wheezes and diminished lung sounds Cardio: Jugular venous distension: no JVD Rate: regular rate Rhythm: regular rhythm Heart sounds: S1 normal heart sound present and S2 normal heart sound present : General: Yes deferred Skin: Rashes: no rashes Wounds: no wounds Neuro: General: no focal motor deficits, CN's II-XI intact
[2023-04-25] MEDS: guaiFENesin 600 MG/DEXTROMETHORPHAN 30 MG SR TAB 12 HR 1 TAB PO (21:33)
[2023-04-25] MEDS: DOCUSATE SODIUM 100 MG CAPSULE PO (21:33)
[2023-04-26] VITALS (10 sets, daily range): BP systolic 141–160; BP diastolic 45–62; PULSE 62–74; RESP 18; TEMP 37–39.4; O2SAT 95–100
[2023-04-26] MEDS: ACETAMINOPHEN 325 MG TABLET 650 MG PO (04:02)
[2023-04-26 05:31] LABS: Basophils Percent Auto 0.6 % (0.2-1.2); Eosinophils Absolute Auto 0.3 K/mm3 (0-0.3); Hemoglobin 7.9 g/dL (12.0-15.0); Immature Granulocyte Absolute 0.06 K/mm3 (0.00-0.031); Immature Granulocyte Percent A 0.8 % (0-0.5); Lymphocytes Absolute Auto 0.96 K/mm3 (0.9-3.2); Lymphocytes Percent Auto 13.3 % (18.3-44.2); Mean Corpuscular HGB Conc 30.4 g/dl (32-36); Mean Platelet Volume 9.8 fl (7.4-10.4); Monocytes Absolute Auto 0.9 K/mm3 (0.1-0.6); Monocytes Percent Auto 12.5 % (2.6-8.5); Neutrophils Percent Auto 68.8 % (45.5-73.1); Platelet Count Result 211 k/mm3 (150-375); Red Blood Count 2.55 M/mm3 (4.2-5.4); Red Cell Distribution Width 14.9 % (11.5-14.5); White Blood Count 7.2 K/mm3 (4.5-10.0)
[2023-04-26 05:45] LABS: Alanine Aminotransferase 12 U/L (6-35); Albumin Level 3.2 g/dL (3.5-5.1); Alkaline Phosphatase 75 U/L (38-126); Anion Gap 6 mmol/L (8-16); Aspartate Amino Transferase 22 U/L (14-36); Bilirubin,Total 0.5 mg/dL (0.2-1.3); Blood Urea Nitrogen 36 mg/dL (7-17); Calcium 8.3 mg/dL (8.4-10.2); Carbon Dioxide 30 mmol/L (22-30); Chloride 100 mmol/L (98-107); Estimated CRCL calculation 13 ml/min; Estimated Glomerular Filt Rate 16; Glucose 108 mg/dL (65-110); Potassium 4.1 mmol/L (3.4-5.0); Sodium 136 mmol/L (137-145)
[2023-04-26] MEDS: hydrALAZINE HCL 50 MG TABLET PO ×2 (05:48→15:14)
[2023-04-26] MEDS: NIFEdipine 30 MG TAB.ER.24 90 MG PO (09:19)
[2023-04-26] MEDS: guaiFENesin 600 MG/DEXTROMETHORPHAN 30 MG SR TAB 12 HR 1 TAB PO (09:20)
[2023-04-26] MEDS: carvediloL 12.5 MG TABLET PO (09:20)
[2023-04-26] MEDS: DOCUSATE SODIUM 100 MG CAPSULE PO (09:20)
[2023-04-26] MEDS: FUROSEMIDE 40 MG TABLET PO (09:20)
--- NOTE | 2023-04-26 09:45 | PM.PNNEP ---
Progress Note: A&P Assessment and Plan (1) End stage renal disease: Code(s): N18.6 - End stage renal disease Status: Chronic Assessment and Plan: HD tomorrow continue M/W/F dialysis schedule during hospital stay follow electrolytes, volume status, and clearance (2) Acute hypoxemic respiratory failure: Code(s): J96.01 - Acute respiratory failure with hypoxia Status: Acute Assessment and Plan: resolving (if not resolved) as noted on admission presumably due to mild pulmonary edema improvement noted with ultrafiltration/fluid removal oxygen support as needed (currently on room air) continue aggressive fluid removal with dialysis (3) Essential (primary) hypertension: Code(s): I10 - Essential (primary) hypertension Status: Chronic Assessment and Plan: elevated on admission possible element of flash pulmonary edema due to HTN(?) reasonable control at this time back on home medications and adjust as needed (4) Anemia: Qualifiers: Anemia type: due to chronic kidney disease Chronic kidney disease stage: stage 4 (severe) Qualified Code(s): N18.4 - Chronic kidney disease, stage 4 (severe); D63.1 - Anemia in chronic kidney disease Code(s): D64.9 - Anemia, unspecified Status: Chronic Assessment and Plan: due to ESRD Epogen with HD follow trend of H/H (5) Diabetes: Code(s): E11.9 - Type 2 diabetes mellitus without complications Status: Chronic Assessment and Plan: reported history on no medications -- presumably diet controlled now... follow sugars intermittently Will continue to follow. Subjective Date/time seen: 04/26/23 09:45 Interval history: Follow-up for end stage renal disease on hemodialysis. Tolerated hemodialysis treatment yesterday without any issues or problems; breathing/respiratory status seems to be doing better; off supplemental oxygen and on room air at the time of my visit; no apparent distress noted. Exam Narrative: General: elderly but WD/WN female in NAD Heart: normal S1 and S2; no rub Lungs: decreased at bases Abdomen: soft, nontender, nondistended, positive bowel sounds Extremities: no cyanosis or clubbing; no edema Skin: warm and intact Objective Data Vital Signs Vital Signs: Vital Signs Temp Pulse Resp BP Pulse Ox O2 Del Method O2 Flow Rate 04/26/23 08:00 Room Air 04/26/23 08:00 68 04/26/23 09:20 68 04/26/23 08:00 98.6 F 71 18 160/62 H 100 04/26/23 05:56 68 04/26/23 05:00 100.9 F H 04/26/23 04:00 103.0 F H 62 18 141/45 H 95 04/26/23 04:02 103 F H 04/26/23 03:20 64 18 97 Room Air 04/26/23 03:20 62 04/26/23 02:00 64 04/25/23 23:54 97.6 F 66 18 135/82 97 04/25/23 23:50 57 L 18 94 Room Air 04/25/23 23:50 58 L 04/25/23 22:00 70 04/25/23 20:00 80 18 94 Room Air 04/25/23 20:00 80 04/25/23 21:34 78 04/25/23 20:00 97.5 F L 82 18 175/52 H 94 04/25/23 17:25 86 04/25/23 16:00 94 Room Air 04/25/23 16:34 74 18 04/25/23 16:30 72 18 95 Room Air 04/25/23 16:27 72 18 04/25/23 16:00 69 04/25/23 14:00 72 04/25/23 16:00 98.2 F 69 18 169/62 H 97 04/25/23 12:24 59 L 182/63 H 04/25/23 12:15 61 176/69 H 04/25/23 12:01 65 160/65 H 04/25/23 12:40 97.5 F L 61 16 185/73 H 98 04/25/23 12:00 99 Nasal Cannula 1 04/25/23 12:00 65 04/25/23 12:01 65 18 04/25/23 11:51 69 18 Intake/Output Intake/Output: Intake & Output 04/23/23 04/24/23 04/25/23 04/26/23 23:59 23:59 23:59 23:59 Intake Total 900 980 240 Output Total 240 3001 Balance 660 -2020 240 Meds/Results Medications: Active Medications Generic Name Dose Route Start Last Admin Trade Name Tierra Godfrey
--- NOTE | 2023-04-26 12:37 | PM.DS ---
DS: Admitting Diagnosis Discharge Date 04/26/23 Admitting Diagnosis 1. Acute hypoxic respiratory failure; Fluid overload 2. ESRD on HD 3. Pulmonary edema 4. Hypertension 5. LALA. DS: Discharge Diagnosis Discharge Diagnosis (1) Acute hypoxic respiratory failure: Code(s): J96.01 - Acute respiratory failure with hypoxia Status: Acute Assessment and Plan: admit to IMU continue use of BiPAP supportive care continue to monitor (2) ESRD on hemodialysis: Code(s): N18.6 - End stage renal disease; Z99.2 - Dependence on renal dialysis Status: Acute Assessment and Plan: continue hemodialysis nephrology consult (3) Pulmonary edema: Qualifiers: Chronicity: acute Qualified Code(s): J81.0 - Acute pulmonary edema Code(s): J81.1 - Chronic pulmonary edema Status: Acute Assessment and Plan: gentle diuresis as needed patient is also on hemodialysis (4) Hypertension: Qualifiers: Hypertension type: unspecified Qualified Code(s): I10 - Essential (primary) hypertension Code(s): I10 - Essential (primary) hypertension Status: Acute Assessment and Plan: restart home meds as needed (5) Obstructive sleep apnea: Code(s): G47.33 - Obstructive sleep apnea (adult) (pediatric) Status: Chronic Assessment and Plan: currently on continuous BiPAP Plan 1. Acute hypoxic respiratory failure; Fluid overload 2. ESRD on HD 3. Pulmonary edema 4. Hypertension 5. LALA. DS: Summary Hospital Course Reason for hospitalization: 1. Acute hypoxic respiratory failure; Fluid overload 2. ESRD on HD 3. Pulmonary edema 4. Hypertension 5. LALA. Hospital Course: Chief Complaint: Shortness of breath Narrative: ?This is an 83-year-old female with past medical history significant for end-stage renal disease on hemodialysis, congestive heart failure, hypertension, coronary artery disease, obstructive sleep apnea, type 2 diabetes mellitus.? Patient was brought to the emergency room for evaluation from her fdc due to concerns for shortness of breath.? In the emergency room patient was placed on BiPAP.? Most of the history has been obtained upon reviewing medical records.? Preliminary workup was significant for ABG with a pH of 7.257 pCO2 53 PO2 of 70 Chemistry panel shows BUN of 51 creatinine of 4.1.? XR chest : 1. Mild pulmonary edema. 2. Cardiomegaly. ? Patient is been admitted for further evaluation management and treatment. 1. Acute hypoxic respiratory failure; Fluid overload 2. ESRD on HD 3. Pulmonary edema 4. Hypertension 5. LALA. Significant findings: ABG with a pH of 7.257 pCO2 53 PO2 of 70 Chemistry panel shows BUN of 51 creatinine of 4.1.? XR chest : 1. Mild pulmonary edema. 2. Cardiomegaly. Procedures performed: None Treatment rendered: Hemodialysis Disposition: SNF Status at Discharge Functional status at discharge: wheelchair bound Overall status at discharge: patient is progressing back to baseline Time Spent with Patient Time attestation: Total time spent providing and/or coordinating discharge services: Exam Narrative: patient is laying in a stretcher on BiPAP Const: General: comfortable, no acute distress, well developed, ill appearing, lethargic, patient obtunded, tired appearing, average body habitus and edematous; No confusion Nutritional Appearance: average body habitus and edematous Orientation/consciousness: No confusion, patient obtunded and lethargic HENMT: Head: normal to inspection, normocephalic and atraumatic Ears: hearing grossly normal bilaterally Face/Nose/Sinus: normal facial exam Face and sinus: normal facial exam Eyes: General: appearance normal, both eyes and all related structures Pupils: Equal, round and reactive pupils present EOM: EOMs intact bilaterally Neck: Neck: full ROM, no lymphadenopathy and no JVD Thyroid: thyroid normal Lymphatic: no lymphadenopath
[2023-04-26 13:46] LABS: SARS-CoV-2 RNA PCR Negative (Negative)
== END 2023-04-26 17:24 | DRG 189 ==
LOC: ANHED 04-24 02:30 → ANHIMU 04-24 04:14
PROVIDERS: Internal Medicine; Internal Medicine Nephrology; Admitting Provider Internal Medicine; Emergency Provider Physician Assistant; PCP Nurse Practitioner Family; Visit Provider Internal Medicine
DX: J81.0 Acute pulmonary edema (principal); J96.01 Acute respiratory failure with hypoxia; N18.6 End stage renal disease; I13.2 Hypertensive heart and chronic kidney disease with heart failure and with stage 5 chronic kidney disease, or end stage renal disease; I50.9 Heart failure, unspecified; E11.22 Type 2 diabetes mellitus with diabetic chronic kidney disease; I25.10 Atherosclerotic heart disease of native coronary artery without angina pectoris; D63.1 Anemia in chronic kidney disease; E55.9 Vitamin D deficiency, unspecified; E78.5 Hyperlipidemia, unspecified; E03.9 Hypothyroidism, unspecified; N25.0 Renal osteodystrophy; M15.0 Primary generalized (osteo)arthritis; G47.33 Obstructive sleep apnea (adult) (pediatric); Z96.641 Presence of right artificial hip joint; Z20.822 Contact with and (suspected) exposure to COVID-19; Z96.653 Presence of artificial knee joint, bilateral; Z11.52 Encounter for screening for COVID-19; Z87.891 Personal history of nicotine dependence; Z99.2 Dependence on renal dialysis; Z99.3 Dependence on wheelchair
CPT/HCPCS: 36415; 36600; 71045; 80053; 82375; 82805; 83050; 83690; 83735; 83880; 84100; 84145; 84484; 85025; 85610; 85730; 86140; 86706; 87340; 87635; 87637; 93005; 94002; 94003; 94640; 96374; 96375; 99285; A9270; G0257; G0378; J0360; J1644; J1939; J1940; J7030; P9047; Q5105

== ENCOUNTER 2023-05-20 14:38 | Emergency (ER) | payer MEDICARE, SELFPAY ==
--- NOTE | ~2023-05-20 | XR_ITS ---
EXAMINATION: XR chest 1V DATE: 05/20/2023 16:02 INDICATION: Cough. Abdominal pain. TECHNIQUE: A single frontal view of the chest was obtained. COMPARISON: Chest single view 04/26/2023 FINDINGS: There is mild atelectasis at left lung base. No pleural effusion or pneumothorax. The heart size is normal. IMPRESSION: 1. Mild atelectasis at left lung base. Reviewed, dictated and finalized at location E. NG [employer]PER[employer]
--- NOTE | ~2023-05-20 | CT_ITS ---
EXAMINATION: CT abdomen pelvis wo con DATE: 05/20/2023 16:00 INDICATION: Umbilical abdominal pain. TECHNIQUE: Computed tomography (CT) of the abdomen and pelvis was performed without intravenous contr ast. Automated exposure control and iterative reconstruction technique were employed. The dose-length product was 918.94 mGy-cm. COMPARISON: CT abdomen and pelvis 03/15/2023, 07/22/21 FINDINGS: The visualized portions of the lung bases posteriorly mild atelectasis. There are scattered pulmonary nodules measuring up to 4 mm, likely benign. No pleural effusion. The heart size is normal . There are coronary artery calcifications. There are calcifications of the aortic valve. No pericard ial effusion. There are widespread arterial calcifications. The liver and spleen are normal. There ar e gallstones in the gallbladder, which is normal in size. The pancreas and adrenal glands are normal. There is cortical thinning of the kidneys. Stool distends the rectum. There are no distended dilated loops of bowel. There is an umbilical hernia containing a wall of nonobstructed small bowel. The belia endix is normal. There is a small sliding hiatal hernia. There are no pathologically enlarged lymph n odes. There is no free intraperitoneal fluid. There is a total right hip arthroplasty. There is sever e left hip osteoarthritis. There is moderate thoracic spondylosis and severe lumbar spondylosis. IMPRESSION: 1. Umbilical hernia containing a wall of nonobstructed small bowel. 2. Small sliding hiatal hernia. Reviewed, dictated and finalized at location E. [facility]
[2023-05-20 14:35] VITALS: BP 151/45; PULSE 60; RESP 16; TEMP 36.6; O2SAT 98
--- NOTE | 2023-05-20 15:39 | ED.ABDPAIN ---
HPI - Abdominal Pain General Chief Complaint: Abdominal Pain Stated Complaint: abd pain Time Seen by Provider: 05/20/23 15:10 Source: patient and EMS Mode of arrival: EMS Limitations: no limitations History of Present Illness HPI narrative: 83 yo female w/ ESRD on HD M/W/F was at dialysis when she experienced an episode of abdominal pain near the end of the session. She describes it as umbilical. States it has never happened before during dialysis but felt like a dull ache and says her abdomen felt hot at the time. Believes the run was cut short by only 10-15 minutes as a result. It resolved prior to/as she was being brought to the ED and hasn't recurred. She is incontinent at baseline (still makes urine). No nausea or vomiting. She states she has also been bothered by a cough for the past week. States she has a roommate at [facility] who has been coughing for the same time period. No fevers. No shortness of breath at rest but SOB when she coughs. It is non productive. LBM yesterday; no diarrhea or constipation. Denies any underlying respiratory conditions. patient's horticulturalist is Dr. Fulton Related Data Home Medications Medication Instructions Recorded Confirmed carvedilol 12.5 mg tablet (Coreg) 12.5 mg PO Q12HR 10/14/22 04/24/23 hydralazine 25 mg tablet 25 mg PO Q8H 10/14/22 04/24/23 hydralazine 50 mg tablet 50 mg PO Q8H 10/14/22 04/24/23 acetaminophen 325 mg capsule 650 mg PO Q6H PRN Pain 02/24/23 04/24/23 docusate sodium 100 mg capsule 100 mg PO Q12HR Constipation 03/15/23 04/24/23 furosemide 40 mg tablet 40 mg PO DAILY 03/15/23 04/24/23 guaifenesin 100 mg/5 mL oral syrup 200 mg PO Q6H PRN Cough 03/15/23 04/24/23 nifedipine 30 mg tablet,extended 90 mg PO DAILY 03/15/23 04/24/23 release 24 hr (Procardia XL) ondansetron 4 mg disintegrating 4 mg PO Q6H PRN Nausea 03/15/23 04/24/23 tablet dextromethorphan-guaifenesin 30 1 tablet PO Q12H 04/24/23 04/24/23 mg-600 mg tablet extended [id number] hr (Mucinex DM) Allergies Allergy/AdvReac Type Severity Reaction Status Date / Time benazepril Allergy Severe Swelling Verified 05/20/23 14:43 of Lip/Tongue/Throat lisinopril Allergy Severe Anaphylaxis Verified 05/20/23 14:43 PMF Past Medical History Medical History Anemia Atherosclerotic heart disease of [place] coronary artery without angina pectoris Carotid artery disease Congestive heart failure Coronary artery disease Diastolic dysfunction End-stage renal disease on hemodialysis Essential (primary) hypertension Hypothyroidism, unspecified Obstructive sleep apnea Primary generalized (osteo)arthritis Proteinuria due to type 2 diabetes mellitus Renal osteodystrophy Screening mammogram, encounter for Type II diabetes mellitus with renal manifestations Vitamin D deficiency Surgical History Surgical History History of bunionectomy of left great toe History of right hip replacement Presence of left artificial knee joint Presence of right artificial knee joint Status post cataract extraction of both eyes with insertion of intraocular lens Status post creation of arteriovenous fistula Left upper arm Family History Family History Mother Diabetes mellitus Acute myocardial infarction Family history of diabetes mellitus in first degree relative Patient's mother is Hypertension Breast cancer Uterine cancer Sibling Family history of sarcoidosis Cerebrovascular accident Father , age 49 [place] Acute myocardial infarction Patient's mother is Hypertension Daughter Family history of lupus erythematosus Family history of arthritis Hypertension Social History Social History Social History: The patient has 9 children. She
[2023-05-20 16:28] LABS: Basophils Percent Auto 0.6 % (0.2-1.2); Eosinophils Absolute Auto 0.3 K/mm3 (0-0.3); Eosinophils Percent Auto 4.5 % (0-4.4); Hematocrit 31.5 % (37.0-47.0); Hemoglobin 9.9 g/dL (12.0-15.0); Immature Granulocyte Absolute 0.04 K/mm3 (0.00-0.031); Immature Granulocyte Percent A 0.6 % (0-0.5); Lymphocytes Absolute Auto 0.93 K/mm3 (0.9-3.2); Lymphocytes Percent Auto 14.8 % (18.3-44.2); Mean Corpuscular HGB Conc 31.4 g/dl (32-36); Mean Corpuscular Hemoglobin 32.1 pg (26-34); Mean Corpuscular Volume 102.3 fl (80-100); Mean Platelet Volume 9.3 fl (7.4-10.4); Monocytes Absolute Auto 0.7 K/mm3 (0.1-0.6); Monocytes Percent Auto 11.3 % (2.6-8.5); Neutrophils Absolute Auto 4.3 K/mm3 (1.3-6.7); Neutrophils Percent Auto 68.2 % (45.5-73.1); Platelet Count Result 217 k/mm3 (150-375); Red Blood Count 3.08 M/mm3 (4.2-5.4); Red Cell Distribution Width 15.7 % (11.5-14.5); White Blood Count 6.3 K/mm3 (4.5-10.0)
[2023-05-20 16:42] LABS: Alanine Aminotransferase 14 U/L (6-35); Albumin Level 3.9 g/dL (3.5-5.1); Alkaline Phosphatase 128 U/L (38-126); Anion Gap 9 mmol/L (8-16); Aspartate Amino Transferase 29 U/L (14-36); Bilirubin,Total 0.4 mg/dL (0.2-1.3); Blood Urea Nitrogen 27 mg/dL (7-17); Calcium 9.2 mg/dL (8.4-10.2); Carbon Dioxide 24 mmol/L (22-30); Chloride 101 mmol/L (98-107); Estimated CRCL calculation 17 ml/min; Estimated Glomerular Filt Rate 22; Glucose 212 mg/dL (65-110); Lipase 244 U/L (23-300); Potassium 3.3 mmol/L (3.4-5.0); Sodium 134 mmol/L (137-145)
[2023-05-20 17:04] LABS: Influenza A QL RT-PCR Negative (Negative); Influenza B QL RT-PCR Negative (Negative); RSV RNA, RT-PCR Negative (Negative); SARS-CoV-2 RNA PCR Positive (Negative)
[2023-05-20 17:13] LABS: NT Pro B Type Natriuretic Pept 29700 pg/mL (19.9-100)
[2023-05-20] MEDS: POTASSIUM CHLORIDE 20 MEQ PACKET (FOR LIQUID) PO (17:55)
[2023-05-20 17:56] VITALS: BP 161/56; PULSE 73; RESP 14; O2SAT 96
[2023-05-20 20:20] VITALS: BP 159/53; PULSE 74; RESP 17; O2SAT 97
[2023-05-20 21:07] VITALS: BP 165/59; PULSE 76; RESP 17; O2SAT 97
== END 2023-05-20 21:13 ==
PROVIDERS: Emergency Provider Student in an Organized Health Care Education/Training Program; PCP Nurse Practitioner Family
DX: U07.1 COVID-19 (principal); K44.9 Diaphragmatic hernia without obstruction or gangrene; K42.9 Umbilical hernia without obstruction or gangrene; D53.9 Nutritional anemia, unspecified; E87.6 Hypokalemia; R74.8 Abnormal levels of other serum enzymes; N18.6 End stage renal disease; I13.2 Hypertensive heart and chronic kidney disease with heart failure and with stage 5 chronic kidney disease, or end stage renal disease; E11.22 Type 2 diabetes mellitus with diabetic chronic kidney disease; I50.9 Heart failure, unspecified; Z99.2 Dependence on renal dialysis; I25.10 Atherosclerotic heart disease of native coronary artery without angina pectoris; E03.9 Hypothyroidism, unspecified; E55.9 Vitamin D deficiency, unspecified; N25.0 Renal osteodystrophy; G47.33 Obstructive sleep apnea (adult) (pediatric); M15.0 Primary generalized (osteo)arthritis; Z96.641 Presence of right artificial hip joint; Z96.653 Presence of artificial knee joint, bilateral; Z96.1 Presence of intraocular lens; Z98.42 Cataract extraction status, left eye; Z98.41 Cataract extraction status, right eye; Z87.891 Personal history of nicotine dependence
CPT/HCPCS: 36415; 71045; 74176; 80053; 83690; 83880; 85025; 87637; 99284; A9270

== ENCOUNTER 2023-06-06 08:16 | Observation (INO) | payer MEDICARE, SELFPAY ==
[2023-06-06] VITALS (29 sets, daily range): BP systolic 170–204; BP diastolic 56–91; PULSE 71–90; RESP 16–30; TEMP 36.3–37; O2SAT 93–100; BMI 31.5
--- NOTE | 2023-06-06 | ECG_ITS ---
Measurements Intervals [place] Rate: 76 P: -18 ID: 169 QRS: 108 QRSD: 126 T: 40 QT: 452 QTc: 511 Interpretive Statements SINUS RHYTHM RIGHT AXIS DEVIATION POSSIBLE LEFT ATRIAL ENLARGEMENT INTRAVENTRICULAR CONDUCTION DELAY NONSPECIFIC ST & T-WAVE ABNORMALITY- ANTEROLAT/INF LEADS BASELINE ARTIFACT- II, III, AVR, AVL, AVF BORDERLINE ECG COMPARED TO ECG 06/06/2023 08:21:18 NO SIGNIFICANT CHANGES Electronically Signed On 06-06-2023 13:15:00 CDT by Ashutosh Jones D.O.
--- NOTE | ~2023-06-06 | XR_ITS ---
XR chest 1V portable INDICATION: Chest pain TECHNIQUE: 2 view chest. FINDINGS: Comparison to multiple prior studies sequentially, with oldest reviewed study dated 2023. There is mild bilateral interstitial prominence and peribronchial cuffing. There is no focal consoli dation, pleural effusion, or pneumothorax. The cardiomediastinal silhouette is normal. IMPRESSION: 1. Findings most consistent with bronchiolitis versus an atypical or viral pneumonia. Reviewed, dictated and finalized at location B. IMPRESSION: 1. Findings most consistent with bronchiolitis versus an atypical or viral [facility].
[2023-06-06 08:42] LABS: Basophils Percent Auto 0.3 % (0.2-1.2); Eosinophils Absolute Auto 0.1 K/mm3 (0-0.3); Eosinophils Percent Auto 1.2 % (0-4.4); Hemoglobin 10.5 g/dL (12.0-15.0); Immature Granulocyte Absolute 0.05 K/mm3 (0.00-0.031); Immature Granulocyte Percent A 0.5 % (0-0.5); Lymphocytes Percent Auto 7.6 % (18.3-44.2); Mean Corpuscular HGB Conc 30.9 g/dl (32-36); Mean Corpuscular Hemoglobin 31.8 pg (26-34); Mean Platelet Volume 9.4 fl (7.4-10.4); Monocytes Absolute Auto 0.8 K/mm3 (0.1-0.6); Monocytes Percent Auto 7.5 % (2.6-8.5); Neutrophils Absolute Auto 8.7 K/mm3 (1.3-6.7); Neutrophils Percent Auto 82.9 % (45.5-73.1); Platelet Count Result 253 k/mm3 (150-375); Red Cell Distribution Width 15.9 % (11.5-14.5); White Blood Count 10.5 K/mm3 (4.5-10.0)
[2023-06-06] MEDS: MORPHINE SULFATE (*CRX) 2 MG/ML INJ IV PUSH (08:51)
[2023-06-06 08:55] LABS: Alanine Aminotransferase 12 U/L (6-35); Alkaline Phosphatase 90 U/L (38-126); Anion Gap 11 mmol/L (8-16); Aspartate Amino Transferase 22 U/L (14-36); Bilirubin,Total 0.6 mg/dL (0.2-1.3); Blood Urea Nitrogen 62 mg/dL (7-17); Carbon Dioxide 22 mmol/L (22-30); Chloride 104 mmol/L (98-107); Estimated CRCL calculation 8 ml/min; Estimated Glomerular Filt Rate 9; Glucose 133 mg/dL (65-110); Lipase 188 U/L (23-300); Potassium 4.6 mmol/L (3.4-5.0); Sodium 137 mmol/L (137-145)
[2023-06-06 09:06] LABS: NT Pro B Type Natriuretic Pept > 30000 pg/mL (19.9-100); Troponin I < 0.012 ng/mL (0.000-0.034)
[2023-06-06 09:17] LABS: INR 1.1; Prothrombin Time 14.1 Seconds (11.1-14.7)
[2023-06-06 09:18] LABS: Partial Thromboplastin Time 32.3 Seconds (22.3-36.8)
--- NOTE | 2023-06-06 09:44 | ED.CHESTPAIN ---
HPI - Chest Pain General Chief Complaint: Chest Pain Stated Complaint: CP Time Seen by Provider: 06/06/23 08:18 History of Present Illness HPI narrative: Pt presents with anterior CP since 0600 this morning. Pt describes as heavy and non radiating. Pt is M,W,F dialysis pt. Pt has some mild SOB but not atypical for her CRF. Pt denies fever or cough. Pt has not had CP for a long time. Denies Hx of [place]. Related Data Home Medications Medication Instructions Recorded Confirmed carvedilol 12.5 mg tablet (Coreg) 12.5 mg PO Q12HR 10/14/22 06/06/23 hydralazine 25 mg tablet 25 mg PO Q8H 10/14/22 06/06/23 hydralazine 50 mg tablet 50 mg PO Q8H 10/14/22 06/06/23 acetaminophen 325 mg capsule 650 mg PO Q6H PRN Pain 02/24/23 06/06/23 docusate sodium 100 mg capsule 100 mg PO Q12HR Constipation 03/15/23 06/06/23 furosemide 40 mg tablet 40 mg PO DAILY 03/15/23 06/06/23 guaifenesin 100 mg/5 mL oral syrup 200 mg PO Q6H PRN Cough 03/15/23 06/06/23 nifedipine 30 mg tablet,extended 90 mg PO DAILY 03/15/23 06/06/23 release 24 hr (Procardia XL) ondansetron 4 mg disintegrating 4 mg PO Q6H PRN Nausea 03/15/23 06/06/23 tablet dextromethorphan-guaifenesin 30 1 tablet PO Q12H 04/24/23 06/06/23 mg-600 mg tablet extended [id number] hr (Mucinex DM) Allergies Allergy/AdvReac Type Severity Reaction Status Date / Time benazepril Allergy Severe Swelling Verified 05/20/23 14:43 of Lip/Tongue/Throat lisinopril Allergy Severe Anaphylaxis Verified 05/20/23 14:43 Review of Systems Review of Systems: All systems reviewed & are unremarkable except as noted in HPI and below PMFSH Past Medical History Medical History (Updated 06/06/23 @ 13:28 by Janet Lawson PA-C) Anemia Carotid artery disease Congestive heart failure Coronary artery disease Diastolic dysfunction End-stage renal disease on hemodialysis Essential (primary) hypertension Hypothyroidism, unspecified Obstructive sleep apnea Osteoarthritis Renal osteodystrophy Type 2 diabetes mellitus Vitamin D deficiency Surgical History Surgical History (Updated 06/06/23 @ 13:10 by Janet Lawson PA-C) History of bilateral knee arthroplasty History of bunionectomy of left great toe History of cataract extraction with lens replacement History of right hip replacement Status post creation of arteriovenous fistula Left upper arm Family History Family History Mother Diabetes mellitus Acute myocardial infarction Family history of diabetes mellitus in first degree relative Patient's mother is Hypertension Breast cancer Uterine cancer Sibling Family history of sarcoidosis Cerebrovascular accident Father , age 49 [place] Acute myocardial infarction Patient's mother is Hypertension Daughter Family history of lupus erythematosus Family history of arthritis Hypertension Social History Social History (Updated 06/06/23 @ 13:11 by Janet Lawosn PA-C) Social History: Surrogate medical decision maker: Hue Welsh. Code status: Full code. Smoking packs per day: 1.5 Smoking cigarettes per day: 30.0 Years smoked: 15 Smoking pack-years: 22.50 Smoking status: Never smoker Tobacco type: cigarettes Second hand tobacco smoke exposure: Yes Additional smoking assessment comments: 40 years ago Alcohol intake: never Substance use: never Substance use type: does not use Do You Feel Safe in your Home?: Yes Lack of Transportation: No Lack of Food: Never True Current Housing: I Have Housing Concerned About Future Housing: No Difficulty Paying Gas/Electric Bills: No Difficulty Paying for Meds: No Currently Unemployed: No Education: Decline to Answer Difficulty w/ Childcare or Family Care: No Living arrangements: assisted Additional living arrangements comments: . Resident of [facility]. Additional
[2023-06-06 10:04] LABS: NT Pro B Type Natriuretic Pept > 30000 pg/mL (19.9-100)
--- NOTE | 2023-06-06 10:58 | ECG_ITS ---
Measurements Intervals [place] Rate: 90 P: 73 [place]: 176 QRS: -46 QRSD: 129 T: 72 QT: 414 QTc: 507 Interpretive Statements SINUS RHYTHM POSSIBLE LEFT ATRIAL ENLARGEMENT LEFT ANTERIOR FASCICULAR BLOCK LEFT VENTRICULAR HYPERTROPHY AND ST-T CHANGE BORDERLINE ST-T WAVE ABNORMALITY- LATERAL LEADS BASELINE WANDER- II, III, AVL, AVF ABNORMAL ECG COMPARED TO ECG 04/23/2023 22:49:17 NO SIGNIFICANT CHANGES Electronically Signed On 06-06-2023 11:03:21 CDT by Ashutosh Jones D.O.
[2023-06-06 11:50] LABS: Troponin I < 0.012 ng/mL (0.000-0.034)
--- NOTE | 2023-06-06 12:30 | ADMGEN ---
This patient, Lilian Mandel, was admitted to [facility] Surg Room 312-01. Patient/family oriented to hospital policies and general routines including ID bracelet, bed and alarms, visiting hours, pain management, procedures, bathroom and other care routines, personal items, smoking policy, room service/diet, and visiting hours. Information on how to activate the Rapid Response Team has been discussed. Patient/Family are encouraged to report perceived risks to care and to ask questions if they do not understand what they are told or what they should do.
[2023-06-06 12:35] LABS: Influenza A QL RT-PCR Negative (Negative); Influenza B QL RT-PCR Negative (Negative); RSV RNA, RT-PCR Negative (Negative); SARS-CoV-2 RNA PCR Positive (Negative)
--- NOTE | 2023-06-06 12:50 | PC.NURSE ---
Pt transported via bed to dialysis.
[2023-06-06 12:54] LABS: Procalcitonin 0.9 ng/mL
[2023-06-06] MEDS: CEFEPIME 1 GM/NS 50 ML 1 GM/50 ML BAG IVPB ×2 (12:58→17:58)
--- NOTE | 2023-06-06 13:06 | PM.IMHP ---
H&P: HPI History of Present Illness Date/Time: 06/06/23 13:05 Chief Complaint: Chest pain. Narrative: This is an 83-year-old female with history of stroke, coronary artery disease, heart failure with preserved ejection fraction, end-stage renal disease on hemodialysis, hypertension, hyperlipidemia, Graves disease, type 2 diabetes mellitus, and gastroesophageal reflux disease who presented to the emergency department via EMS from a local [facility] for evaluation of chest pain. She was diagnosed with COVID 2 weeks ago and she has recovered from that. This morning she was supposed to go to dialysis however was sent to the emergency department instead for evaluation after she began complaining of chest pain. She describes a non radiating, heavy and pressure-like sensation in the mid chest associated with mild shortness of breath. Initial troponin was normal and her EKG showed a sinus rhythm with nonspecific ST and T-wave abnormalities in the anterolateral/inferior leads which appear to be similar to those compared to prior tracings. Her initial troponin was negative. Chest x-ray shows findings consistent with possible bronchiolitis or viral pneumonia. She was taken to dialysis this afternoon and she has not had any recurrence of the chest discomfort. Her blood pressures have been persistently in 180s to 200s systolic even after her dialysis treatment. She states compliance with her home medications. No fever, chills, sweats, sinus congestion, sore throat, cough, pleuritic pain, edema, calf pain, nausea, vomiting, or diarrhea. Review of Systems Review of Systems: Twelve systems were reviewed and are negative except for as per HPI. [facility] Past Medical History Medical History (Updated 06/06/23 @ 20:05 by Janet Lawson PA-C) Anemia Carotid artery disease Congestive heart failure Coronary artery disease Diastolic dysfunction End-stage renal disease on hemodialysis Essential (primary) hypertension Hypothyroidism, unspecified Obstructive sleep apnea Osteoarthritis Renal osteodystrophy Type 2 diabetes mellitus Vitamin D deficiency Surgical History Surgical History (Updated 06/06/23 @ 13:10 by Janet Lawson PA-C) History of bilateral knee arthroplasty History of bunionectomy of left great toe History of cataract extraction with lens replacement History of right hip replacement Status post creation of arteriovenous fistula Left upper arm Family History Family History Mother Diabetes mellitus Acute myocardial infarction Family history of diabetes mellitus in first degree relative Patient's mother is Hypertension Breast cancer Uterine cancer Sibling Family history of sarcoidosis Cerebrovascular accident Father , age 49 [place] Acute myocardial infarction Patient's mother is Hypertension Daughter Family history of lupus erythematosus Family history of arthritis Hypertension Social History Social History (Updated 06/06/23 @ 13:11 by Janet Lawson PA-C) Social History: Surrogate medical decision maker: Hue Welsh. Code status: Full code. Smoking packs per day: 1.5 Smoking cigarettes per day: 30.0 Years smoked: 15 Smoking pack-years: 22.50 Smoking status: Never smoker Tobacco type: cigarettes Second hand tobacco smoke exposure: Yes Additional smoking assessment comments: 40 years ago Alcohol intake: never Substance use: never Substance use type: does not use Do You Feel Safe in your Home?: Yes Lack of Transportation: No Lack of Food: Never True Current Housing: I Have Housing Concerned About Future Housing: No Difficulty Paying Gas/Electric Bills: No Difficulty Paying for Meds: No Currently Unemployed: No Education: Decline to Answer Difficulty w/ Childcare or Family Care: No Living arrangements: fpc Additional living arrangements comments: [place]
[2023-06-06 13:26] LABS: Hepatitis B Surface Antigen Negative (Negative)
[2023-06-06 13:45] LABS: Hepatitis B Surface Anti Res Positive
--- NOTE | 2023-06-06 14:33 | PC.NURSE ---
This RN spoke with Bettina with Infection Control concerning the positive covid test results today, This patient originally tested positive for the first time on 05-20-2023. [facility]fection [facility] feels that this patient does not need to be on isolation at this time, it has been over 10 days since her first positive test.
[2023-06-06] MEDS: EPOETIN ALFA-EPBX 4,000 UNITS/ML VIAL 4000 UNITS IV PUSH (14:50)
--- NOTE | 2023-06-06 15:02 | PM.CNNEP ---
Assessment and Plan Assessment and plan (1) End stage renal disease: Code(s): N18.6 - End stage renal disease Status: Chronic Assessment and Plan: HD today continue M/W/F dialysis schedule during hospital stay follow electrolytes, volume status, and clearance (2) Chest pain: Qualifiers: Chest pain type: precordial pain Qualified Code(s): R07.2 - Precordial pain Code(s): R07.9 - Chest pain, unspecified Status: Acute Assessment and Plan: no further recurrence since admission associated with shortness of breath trend troponin follow clinical symptoms related to elevated BP (?) (3) Essential (primary) hypertension: Code(s): I10 - Essential (primary) hypertension Status: Chronic Assessment and Plan: elevated on admission brittle control even at baseline resume home medications and adjust as needed fluid removal with HD may help (4) Anemia: Qualifiers: Anemia type: due to chronic kidney disease Chronic kidney disease stage: stage 4 (severe) Qualified Code(s): N18.4 - Chronic kidney disease, stage 4 (severe); D63.1 - Anemia in chronic kidney disease Code(s): D64.9 - Anemia, unspecified Status: Chronic Assessment and Plan: due to ESRD Epogen with HD follow trend of H/H (5) Diabetes: Code(s): E11.9 - Type 2 diabetes mellitus without complications Status: Chronic Assessment and Plan: reported history on no medications -- presumably diet controlled now... follow sugars/accu-cheks I will continue to follow the patient with you while she remains hospitalized and make further recommendations as needed. Thank you for allowing me to participate in the care this patient. History of Present Illness Reason for Consult Consult date: 06/06/23 Reason for consult: end stage renal disease Chief Complaint Chief complaint: Chest Pain History of Present Illness Narrative: The patient is an 83-year-old female with a past medical history as outlined below who presented to [facility] Emergency Room from her nursing facility for further evaluation of chest pain. Earlier this morning, in preparation for her outpatient scheduled dialysis treatment, she developed chest pain. She described the chest pain as a heavy/pressure-like sensation in the middle of her chest that was nonradiating associated with mild shortness of breath. Is difficult for the patient to give specifics on when the chest pain started. Given these symptoms, her nursing facility transported her to [facility] Emergency Room as opposed to her outpatient dialysis center for further assessment. Workup and evaluation emergency room demonstrated the patient be hemodynamically stable if not hypertensive with a systolic BP in the 180s to 200 systolic. Her initial troponin was normal and her EKG did not show any specific ischemic changes either. Her chest x-ray showed findings consistent with mom possible bronchial it is or viral pneumonia. Routine blood tests also demonstrated labs consistent with her known history of end-stage renal disease with an elevated BUN and creatinine but no critical electrolyte abnormalities and a CBC that showed mild anemia. Reportedly, she was more short of breath in the emergency room required supplemental oxygen as well. She was subsequently admitted to the hospital for further evaluation therapy of her chest pain as well as optimization of her respiratory status given her shortness of breath. Since her admission, she has not had any recurrence of her chest pain but her blood pressure remains elevated. She reports compliance with her medications but I am unclear if she got her a.m. antihypertensive medications prior to her transfer to the emergency room. Renal consultation was requested due to her history of end-stage renal disease. The patient is quite familiar to me as I take c
[2023-06-06 15:32] LABS: Troponin I < 0.012 ng/mL (0.000-0.034)
[2023-06-06 16:35] LABS: Glucose Point of Care 82 mg/dl (65-105)
[2023-06-06] MEDS: guaiFENesin 600 MG/DEXTROMETHORPHAN 30 MG SR TAB 12 HR 1 TAB PO (17:53)
[2023-06-06] MEDS: hydrALAZINE HCL 25 MG TABLET PO ×2 (17:53→21:08)
[2023-06-06] MEDS: hydrALAZINE HCL 50 MG TABLET PO ×2 (17:53→21:07)
[2023-06-06] MEDS: VANCOMYCIN 1,750 MG/NS 500 ML 1,750 MG/500 ML BAG 250 MG IVPB (18:35)
[2023-06-06 19:09] LABS: MRSA (PCR) NOT DETECTED (NOT DETECTE)
[2023-06-06 20:24] LABS: Glucose Point of Care 132 mg/dl (65-105)
[2023-06-06] MEDS: DOXYCYCLINE 100 MG/NS 100 ML 100 MG/100 ML BAG IVPB (21:04)
[2023-06-06] MEDS: REMDESIVIR 200 MG/NS 250 ML 200 MG/250 ML BAG 250 MG IVPB (21:04)
[2023-06-06] MEDS: DOCUSATE SODIUM 100 MG CAPSULE PO (21:07)
[2023-06-06] MEDS: dexAMETHasone SOD PHOS INJ 10 MG/ML 1 ML VIAL 6 MG IV PUSH (21:07)
[2023-06-06] MEDS: carvediloL 12.5 MG TABLET PO (21:07)
[2023-06-06] MEDS: HEPARIN SODIUM 5,000 UNITS/ML VIAL 5000 UNITS SUB-Q (21:08)
[2023-06-07] VITALS (13 sets, daily range): BP systolic 125–186; BP diastolic 39–65; PULSE 60–71; RESP 16–18; TEMP 36.3–36.9; O2SAT 91–98
--- NOTE | 2023-06-07 | ECHO_ITS ---
Patient Info Name: Lilian Mandel Age: 83 years : 1940 Gender: Female Ht: 66 in Wt: 126 lbs BSA: 1.63 m2 HR: 70 bpm BP: 170 / 84 mmHg Heart Rhythm: Sinus Rhythm Technical Quality: Good Exam Date: 06/07/2023 11:30 AM Exam Location: Echo Lab Patient Status: Outpatient Admit Date: 06/06/2023 Staff Ordering Physician: Janet Lawson PA-C Physical Security Specialist: Lindsey Felder RDCS Attending Provider: Radha Hoffman MD Referring Physician: Lulu ALEJANDRE; Exam Type: CA echo doppler color flow Study Info Indications - chest pain Complete two-dimensional, color flow and Doppler transthoracic echocardiogram is performed. Summary 1. Left ventricular chamber dimension is normal. 2. Left ventricular systolic function is at lower limits of normal, estimated at 50-55%. 3. There is mildly increased left ventricular wall thickness. 4. The left ventricular diastolic function is grade I diastolic dysfunction. 5. Right ventricular systolic function is normal. 6. Left atrial chamber dimension is mildly enlarged. 7. Right atrial chamber dimension is mildly enlarged. 8. There is severe aortic valve calcification. 9. There is mild aortic valve stenosis with a peak velocity of 190 cm/s, mean gradient of 8 mmHg, and aortic valve area of 1.8 cm2. 10. There is mild tricuspid valve regurgitation. Left Ventricle Left ventricular chamber dimension is normal. Left ventricular systolic function is at lower limits of normal, estimated at 50-55%. There is mildly increased left ventricular wall thickness. The left ventricular diastolic function is grade I diastolic dysfunction. Right Ventricle Right ventricular chamber dimension is normal. Right ventricular systolic function is normal. Left Atria Left atrial chamber dimension is mildly enlarged. Right Atria Right atrial chamber dimension is mildly enlarged. Atrial Septum Intact interatrial septum visualized by color flow imaging. Aortic Valve The aortic valve is trileaflet. There is mild aortic valve stenosis with a peak velocity of 190 cm/s, mean gradient of 8 mmHg, and aortic valve area of 1.8 cm2. There is no aortic valve regurgitation. There is severe aortic valve calcification. Pulmonic Valve The pulmonic valve is not well visualized. Mitral Valve There is trace mitral valve regurgitation. The mitral valve annulus is mildly calcified. Tricuspid Valve There is mild tricuspid valve regurgitation. Pericardium/Pleural There is no pericardial effusion. Inferior Vena Cava Normal inferior vena cava with >50% collapse upon inspiration consistent with normal right atrial pressure, 3 mmHg. Aorta The aortic root size at the sinus of Valsalva is normal. Left Ventricular Outflow Tract Name Value Normal LVOT 2D LVOT Diameter 2.1 cm LVOT Doppler LVOT Peak Gradient 3 mmHg LVOT Mean Gradient 2 mmHg LVOT VTI 25 cm LVOT VTI/AV VTI Ratio 0.5 LVOT Stroke Volume 83 ml LVOT CO 4.6 l/min LVOT CI 2.8 l/min/m2 Pulmonic Valve
[2023-06-07] MEDS: hydrALAZINE HCL 50 MG TABLET PO ×3 (06:11→21:00)
[2023-06-07] MEDS: hydrALAZINE HCL 25 MG TABLET PO ×3 (06:11→21:00)
[2023-06-07 07:08] LABS: Hematocrit 31.3 % (37.0-47.0); Hemoglobin 9.8 g/dL (12.0-15.0); Mean Corpuscular HGB Conc 31.3 g/dl (32-36); Mean Corpuscular Hemoglobin 31.7 pg (26-34); Mean Corpuscular Volume 101.3 fl (80-100); Mean Platelet Volume 9.5 fl (7.4-10.4); Platelet Count Result 220 k/mm3 (150-375); Red Blood Count 3.09 M/mm3 (4.2-5.4); Red Cell Distribution Width 15.7 % (11.5-14.5); White Blood Count 5.9 K/mm3 (4.5-10.0)
[2023-06-07 07:36] LABS: Glucose Point of Care 120 mg/dl (65-105)
[2023-06-07 08:10] LABS: Alanine Aminotransferase 10 U/L (6-35); Albumin Level 3.6 g/dL (3.5-5.1); Alkaline Phosphatase 52 U/L (38-126); Anion Gap 12 mmol/L (8-16); Aspartate Amino Transferase 22 U/L (14-36); Bilirubin,Total 0.5 mg/dL (0.2-1.3); Blood Urea Nitrogen 36 mg/dL (7-17); Calcium 8.4 mg/dL (8.4-10.2); Carbon Dioxide 24 mmol/L (22-30); Chloride 99 mmol/L (98-107); Estimated CRCL calculation 13 ml/min; Estimated Glomerular Filt Rate 15; Glucose 116 mg/dL (65-110); Sodium 135 mmol/L (137-145)
[2023-06-07 08:19] LABS: Lactate Dehydrogenase 164 U/L (120-246)
[2023-06-07 08:37] LABS: Free T4 Free Thyroxine Reflex 1.16 ng/dL (0.78-2.19)
[2023-06-07] MEDS: DOXYCYCLINE 100 MG/NS 100 ML 100 MG/100 ML BAG IVPB (08:38)
[2023-06-07] MEDS: FUROSEMIDE 40 MG TABLET PO (08:39)
[2023-06-07] MEDS: carvediloL 12.5 MG TABLET PO ×2 (08:39→21:00)
[2023-06-07] MEDS: NIFEdipine 30 MG TAB.ER.24 90 MG PO (08:40)
[2023-06-07] MEDS: DOCUSATE SODIUM 100 MG CAPSULE PO ×2 (08:41→21:00)
[2023-06-07] MEDS: guaiFENesin 600 MG/DEXTROMETHORPHAN 30 MG SR TAB 12 HR 1 TAB PO ×2 (08:41→21:00)
[2023-06-07] MEDS: HEPARIN SODIUM 5,000 UNITS/ML VIAL 5000 UNITS SUB-Q ×2 (08:41→20:59)
--- NOTE | 2023-06-07 09:11 | PM.IMPN ---
Progress Note: A&P Assessment and Plan (1) Chest pain: Qualifiers: Chest pain type: precordial pain Qualified Code(s): R07.2 - Precordial pain Code(s): R07.9 - Chest pain, unspecified Status: Acute Assessment and Plan: Acute on chronic, patient reported SOB prior to HD session, she was transported to hospital where she received hemodialysis, she denies any chest pain or shortness a breath at this time. (2) Hypoxia: Code(s): R09.02 - Hypoxemia Status: Resolved Assessment and Plan: Patient on RA at baseline During admission patient was on RA satting at 96% (3) Abnormal chest x-ray: Code(s): R93.89 - Abnormal findings on diagnostic imaging of other specified body structures Status: Acute Assessment and Plan: as evidence of chest CXR which reveals findings most consistent with bronchiolitis versus an atypical or viral PNA (4) Coronary artery disease: Code(s): I25.10 - Atherosclerotic heart disease of [place] coronary artery without angina pectoris Status: Acute (5) End-stage renal disease on hemodialysis: Code(s): N18.6 - End stage renal disease; Z99.2 - Dependence on renal dialysis Status: Acute Assessment and Plan: -patient on HD, sessions are M/W/F - nephrology consulted appreciate recommendations and plan - HD sessions prescribed by Nephrology (6) Type 2 diabetes mellitus: Code(s): E11.9 - Type 2 diabetes mellitus without complications Status: Acute Assessment and Plan: last A1c 03/17/2023 is 5.2 -Initiate blood glucose bedside management (7) Missed dialysis: Status: Acute (8) COVID: Code(s): U07.1 - COVID-19 Status: Acute Assessment and Plan: last COVID test was 06/06/2023, patient continues to have positive results since being tested 05/20/2023 -Remdesivir started in the ER -Continue remdesivir patient not requiring oxygen, may consider deescalation remdesivir after 3 doses given Plan Continue home medications: VTE Prophylaxis: heparin subQ DIET: renal diet Anticipated hospital stay: > 2 days Code Status: full Subjective Date/time seen: 06/07/23 09:11 Interval history: 06/06 patient seen this morning she is s/p: bedside ADLs she denies any SOB, chest pain nausea vomiting fever chills. Follow-up for end stage renal disease on hemodialysis. Tolerated hemodialysis treatment yesterday without any issues or problems; breathing/respiratory status seems to be doing better; off supplemental oxygen and on room air at the time of my visit; no apparent distress noted. Review of Systems Review of Systems: All systems reviewed & are unremarkable except as noted in HPI and below Exam Narrative: General: Nontoxic-appearing elderly female in the semi-Delgado position in bed just completed morning ADLs with assistance. HEENT: Normocephalic, atraumatic. PERRL, EOMI. Sclera anicteric. Oral mucosa moist. Oropharynx is clear. Edentulous. Neck: Supple. No JVD. Respiratory: Respirations are nonlabored and lungs sounds are clear to auscultation. Cardiovascular: Regular rate and rhythm with S1-S2. Gastrointestinal: Abdomen is soft, nontender, and nondistended with positive bowel sounds. Skin: Warm and dry. No rash or lesions on limited exam. Extremities: No cyanosis, clubbing, or edema. No palpable knots or cords. Negative Vic sign bilaterally. Radial and pedal pulses intact. Left upper extremity AV fistula with palpable thrill and bruit. Neurological: Alert. Cranial nerves 2-12 are grossly intact. No gross focal deficits to casual conversation. Psychiatric: Pleasant and cooperative with normal mood and affect. Judgment and insight intact. Objective Data Vital Signs Vital Signs: Vital Signs - 24 hr 06/06/23 09:16 06/06/23 10:59 06/06/23 12:40 Temperature Pulse Rate 81 79 Respiratory Rate 18 18 Blood Pressure 195/75 H 182/64 H Puls
--- NOTE | 2023-06-07 09:20 | PM.PNNEP ---
Progress Note: A&P Assessment and Plan (1) End stage renal disease: Code(s): N18.6 - End stage renal disease Status: Chronic Assessment and Plan: HD tomorrow continue M/W/F dialysis schedule during hospital stay follow electrolytes, volume status, and clearance (2) Chest pain: Qualifiers: Chest pain type: precordial pain Qualified Code(s): R07.2 - Precordial pain Code(s): R07.9 - Chest pain, unspecified Status: Acute Assessment and Plan: no further occurrence since admission associated with shortness of breath troponin trend noted follow clinical symptoms related to elevated BP on admission (?) (3) Essential (primary) hypertension: Code(s): I10 - Essential (primary) hypertension Status: Chronic Assessment and Plan: elevated on admission brittle control even at baseline resume home medications and adjust as needed follo trend of hemodynamics (4) Anemia: Qualifiers: Anemia type: due to chronic kidney disease Chronic kidney disease stage: stage 4 (severe) Qualified Code(s): N18.4 - Chronic kidney disease, stage 4 (severe); D63.1 - Anemia in chronic kidney disease Code(s): D64.9 - Anemia, unspecified Status: Chronic Assessment and Plan: due to ESRD Epogen with HD follow trend of H/H (5) Diabetes: Code(s): E11.9 - Type 2 diabetes mellitus without complications Status: Chronic Assessment and Plan: reported history on no medications -- presumably diet controlled now... follow sugars/accu-cheks Will continue to follow. Subjective Date/time seen: 06/07/23 09:20 Interval history: Follow-up for end stage renal disease on hemodialysis. Tolerated hemodialysis treatment yesterday without any issues or problems; breathing/respiratory status seems to be doing better; off supplemental oxygen and on room air at the time of my visit; no apparent distress noted. Exam Narrative: General: elderly but WD/WN female in NAD Heart: normal S1 and S2; no rub Lungs: decreased at bases Abdomen: soft, nontender, nondistended, positive bowel sounds Extremities: no cyanosis or clubbing; no edema Skin: warm and dry Objective Data Vital Signs Vital Signs: Vital Signs Temp Pulse Resp BP Pulse Ox O2 Del Method 06/07/23 08:55 98 Room Air 06/07/23 08:55 98 Room Air 06/07/23 08:54 98.4 F 71 16 160/57 H 97 06/07/23 08:39 71 06/07/23 04:40 97.3 F L 70 16 186/59 H 96 06/07/23 04:00 70 06/07/23 00:00 70 06/06/23 20:00 Room Air 06/06/23 20:00 78 06/06/23 19:45 97.5 F L 77 18 170/84 H 96 06/06/23 21:07 80 06/06/23 16:00 74 06/06/23 17:17 97.5 F L 82 16 192/82 H 06/06/23 17:07 71 185/79 H 06/06/23 17:00 72 191/77 H 06/06/23 16:45 73 180/77 H 06/06/23 16:30 73 186/79 H 06/06/23 16:15 73 186/79 H 06/06/23 16:00 75 194/82 H 06/06/23 15:45 77 186/82 H 06/06/23 15:30 74 196/84 H 06/06/23 15:15 75 204/83 H 06/06/23 15:00 77 201/76 H 06/06/23 14:45 76 195/76 H 06/06/23 14:30 75 195/87 H 06/06/23 14:15 78 194/91 H 06/06/23 14:00 76 189/82 H 06/06/23 13:45 74 186/88 H 06/06/23 13:34 82 183/80 H 06/06/23 13:15 97.3 F L 74 18 184/80 H 06/06/23 12:40 97.4 F L 78 18 183/56 H 93 06/06/23 12:40 94 Room Air Intake/Output Intake/Output: Intake & Output 06/04/23 06/05/23 06/06/23 06/07/23 23:59 23:59 23:59 23:59 Intake Total 1102.5 340 Output Total 3500 Balance -2397.5 340 Meds/Results Medications: Active Medications Generic Name Dose Route Start Last Admin Trade Name T[place] PRN Reason Stop Dose Admin Acetaminophen 650 mg 06/06/23 13:28 Acetaminophen 325 Mg Tablet PO Q6H PRN Mild Pain (1-3) or Fever Albuterol 2 p
[2023-06-07 11:04] LABS: Total Triiodothyronine (T3) 0.62 NG/ML (0.97-1.69)
--- NOTE | 2023-06-07 11:26 | PC.NURSE ---
On 06/07/23, the student, Brenda Lugo, provided care and completed [facility] documentation on this patient. I have reviewed the student's documentation and agree with the findings.
[2023-06-07 11:29] LABS: Glucose Point of Care 171 mg/dl (65-105)
[2023-06-07 16:34] LABS: Glucose Point of Care 123 mg/dl (65-105)
[2023-06-07] MEDS: CEFEPIME 1 GM/NS 50 ML 1 GM/50 ML BAG IVPB (17:27)
[2023-06-07] MEDS: DOXYCYCLINE HYCLATE 100 MG TABLET PO (21:00)
[2023-06-07 21:03] LABS: Glucose Point of Care 150 mg/dl (65-105)
[2023-06-08] VITALS (23 sets, daily range): BP systolic 124–170; BP diastolic 50–79; PULSE 55–72; RESP 16–18; TEMP 36.1–37; O2SAT 96–99
[2023-06-08] MEDS: hydrALAZINE HCL 50 MG TABLET PO ×2 (05:53→13:44)
[2023-06-08] MEDS: hydrALAZINE HCL 25 MG TABLET PO ×2 (05:53→13:44)
[2023-06-08 07:43] LABS: Glucose Point of Care 90 mg/dl (65-105)
--- NOTE | 2023-06-08 08:20 | PC.NURSE ---
Pt transported to Dialysis via bed.
[2023-06-08] MEDS: HEPARIN SODIUM 1,000 UNITS/ML VIAL 1000 UNITS IV PUSH (08:37)
--- NOTE | 2023-06-08 12:00 | PM.PNNEP ---
Progress Note: A&P Assessment and Plan (1) End stage renal disease: Code(s): N18.6 - End stage renal disease Status: Chronic Assessment and Plan: HD today continue M/W/F dialysis schedule during hospital stay follow electrolytes, volume status, and clearance (2) Chest pain: Qualifiers: Chest pain type: precordial pain Qualified Code(s): R07.2 - Precordial pain Code(s): R07.9 - Chest pain, unspecified Status: Acute Assessment and Plan: no further occurrence since admission associated with shortness of breath troponin trend noted follow clinical symptoms related to elevated BP on admission (?) (3) Essential (primary) hypertension: Code(s): I10 - Essential (primary) hypertension Status: Chronic Assessment and Plan: elevated on admission - better control currently brittle control even at baseline resume home medications and adjust as needed follow trend of hemodynamics (4) Anemia: Qualifiers: Anemia type: due to chronic kidney disease Chronic kidney disease stage: stage 4 (severe) Qualified Code(s): N18.4 - Chronic kidney disease, stage 4 (severe); D63.1 - Anemia in chronic kidney disease Code(s): D64.9 - Anemia, unspecified Status: Chronic Assessment and Plan: due to ESRD Epogen with HD follow trend of H/H (5) Diabetes: Code(s): E11.9 - Type 2 diabetes mellitus without complications Status: Chronic Assessment and Plan: reported history on no medications -- presumably diet controlled now... follow sugars/accu-cheks Not opposed to discharge from renal perspective if otherwise medically stable. Will continue to follow. Subjective Date/time seen: 06/08/23 12:00 Interval history: Follow-up for end stage renal disease on hemodialysis. Tolerating hemodialysis treatment at the time of my visit (seen on HD at 11:50AM); no apparent distress voiced/to report; no issues overnight or earlier this morning; overall, states she is feeling pretty good. Exam Narrative: General: elderly but WD/WN female in NAD Heart: normal S1 and S2; no rub Lungs: decreased at bases Abdomen: soft, nontender, nondistended, positive bowel sounds Extremities: no cyanosis or clubbing; no edema Skin: warm and intact Objective Data Vital Signs Vital Signs: Vital Signs Temp Pulse Resp BP Pulse Ox O2 Del Method 06/08/23 11:45 64 153/56 H 06/08/23 11:30 63 154/61 H 06/08/23 11:00 65 148/71 H 06/08/23 10:45 62 137/53 L 06/08/23 11:15 65 154/59 H 06/08/23 10:30 62 124/66 06/08/23 08:00 96 Room Air 06/08/23 10:15 59 L 156/67 H 06/08/23 10:00 58 L 142/60 H 06/08/23 09:45 60 154/67 H 06/08/23 09:30 57 L 158/71 H 06/08/23 09:15 57 L 153/67 H 06/08/23 09:00 55 L 149/73 H 06/08/23 08:45 55 L 151/70 H 06/08/23 08:37 57 L 147/64 H 06/08/23 08:00 59 L 06/08/23 08:27 97.3 F L 58 L 16 144/68 H 06/08/23 05:25 97.2 F L 57 L 18 130/50 L 96 06/08/23 04:00 58 L 06/08/23 00:00 60 06/07/23 20:00 Room Air 06/07/23 20:00 70 06/07/23 20:05 98.1 F 69 18 125/39 L 98 06/07/23 21:00 69 06/07/23 16:00 63 06/07/23 13:58 97.7 F 60 18 138/65 91 Intake/Output Intake/Output: Intake & Output 06/05/23 06/06/23 06/07/23 06/08/23 23:59 23:59 23:59 23:59 Intake Total 1102.5 750 550 Output Total 3500 Balance -2397.5 750 550 Meds/Results Medications: Active Medications Generic Name Dose Route Start Last Admin Trade Name Freq PRN Reason Stop Dose Admin Acetaminophen 650 mg 06/06/23 13:28 Acetaminophen 325 Mg Tablet PO Q6H PRN Mild Pain (1-3) or Fever Albuterol 2 puff 06/06/23 13:28 Albuterol Sulfate (*Sp) Aerosol 1 Puff INHALATION QIDRT PRN Shortness Of Breath
[2023-06-08] MEDS: EPOETIN ALFA-EPBX 10,000 UNITS/ML VIAL 10000 UNITS IV PUSH (12:10)
[2023-06-08 12:45] LABS: Glucose Point of Care 83 mg/dl (65-105)
--- NOTE | 2023-06-08 12:50 | PM.DS ---
DS: Admitting Diagnosis Discharge Date 06/08/2023 Admitting Diagnosis Chest pain, hypoxia, abnormal chest x-ray, coronary artery disease, end-stage renal disease on hemodialysis, type 2 diabetes mellitus DS: Discharge Diagnosis Discharge Diagnosis (1) Chest pain: Qualifiers: Chest pain type: precordial pain Qualified Code(s): R07.2 - Precordial pain Code(s): R07.9 - Chest pain, unspecified Status: Acute (2) Hypoxia: Code(s): R09.02 - Hypoxemia Status: Resolved (3) Abnormal chest x-ray: Code(s): R93.89 - Abnormal findings on diagnostic imaging of other specified body structures Status: Acute (4) Coronary artery disease: Code(s): I25.10 - Atherosclerotic heart disease of cheesh-na coronary artery without angina pectoris Status: Chronic (5) End-stage renal disease on hemodialysis: Code(s): N18.6 - End stage renal disease; Z99.2 - Dependence on renal dialysis Status: Chronic (6) Type 2 diabetes mellitus: Code(s): E11.9 - Type 2 diabetes mellitus without complications Status: Chronic (7) Missed dialysis: Status: Acute (8) COVID: Code(s): U07.1 - COVID-19 Status: Acute DS: Summary Hospital Course Reason for hospitalization: Patient missed dialysis and came in having chest pain. Hospital Course: This is an 83-year-old female patient resides at a local [place] [facility] states that her roommate had a cough and stooling everywhere and then the patient started having shortness of breath and cough. Patient was previously diagnosed with COVID May 19. On arrival to the hospital she continues to test positive for COVID. Patient was treated possible pneumonia with doxycycline cefepime. Patient underwent urgent dialysis on day of admission 325 from missing sessions. 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 Patient agreed. Discharge back to [place] [facility] in stable condition with plan to continue Tuesday dialysis. Status at Discharge Cognitive/behavioral status at discharge: Awake alert oriented and pleasant Functional status at discharge: wheelchair bound Overall status at discharge: patient is back to baseline Time Spent with Patient Time attestation: Total time spent providing and/or coordinating discharge services: 35 minutes Time spent: Greater than 30 minutes Exam Narrative: General: Nontoxic-appearing elderly female in the semi-Delgado position in bed just completed dialysis HEENT: Normocephalic, atraumatic. PERRL, EOMI. Sclera anicteric. Oral mucosa moist. Oropharynx is clear. Edentulous. Neck: Supple. No JVD. Respiratory: Respirations are nonlabored and lungs sounds are clear to auscultation. Cardiovascular: Regular rate and rhythm with S1-S2. Gastrointestinal: Abdomen is soft, nontender, and nondistended with positive bowel sounds. Skin: Warm and dry. No rash or lesions on limited exam. Extremities: No cyanosis, clubbing, or edema. No palpable knots or cords. Negative Vic sign bilaterally. Radial and pedal pulses intact. Left upper extremity AV fistula with palpable thrill and bruit. Neurological: Alert. Cranial nerves 2-12 are grossly intact. No gross focal deficits to casual conversation. Psychiatric: Pleasant and cooperative with normal mood and affect. Judgment and insight intact. DS: Data Data Completed and Pending Labs on day of discharge: Labs from last 24 hours 06/08/23 06/08/23 06/07/23 12:43 07:36 20:06 POC Capillary Glucose 83 90 150 H 06/07/23 16:26 POC Capillary Glucose 123 H Preliminary micro results at discharge 06/06/23 12:11 Blood Culture - Preliminary Blood 06/06/23 12:11 Blood Culture - Preliminary Blood Discharge Plan Discharge Attending physician on discharge: Noe Bronson Consulting providers: Sheryl Fulton Discharging Clinician: Onel Leonard Anti
[2023-06-08] MEDS: HEPARIN SODIUM 1,000 UNITS/ML VIAL 2000 UNITS IV PUSH (13:23)
== END 2023-06-08 16:10 ==
LOC: ANHED 11:25 → ANH3MEDSUR 12:20
PROVIDERS: Internal Medicine Nephrology; Physician Assistant; Admitting Provider General Practice; Emergency Provider Emergency Medicine; PCP Nurse Practitioner Family; Visit Provider Family Medicine
DX: U07.1 COVID-19 (principal); R07.2 Precordial pain; R09.02 Hypoxemia; R93.89 Abnormal findings on diagnostic imaging of other specified body structures; I13.2 Hypertensive heart and chronic kidney disease with heart failure and with stage 5 chronic kidney disease, or end stage renal disease; E11.22 Type 2 diabetes mellitus with diabetic chronic kidney disease; I50.30 Unspecified diastolic (congestive) heart failure; Z99.2 Dependence on renal dialysis; D63.1 Anemia in chronic kidney disease; N18.6 End stage renal disease; I25.10 Atherosclerotic heart disease of native coronary artery without angina pectoris; K21.9 Gastro-esophageal reflux disease without esophagitis; E78.5 Hyperlipidemia, unspecified; I45.4 Nonspecific intraventricular block; I08.2 Rheumatic disorders of both aortic and tricuspid valves; G47.33 Obstructive sleep apnea (adult) (pediatric); N25.0 Renal osteodystrophy; E55.9 Vitamin D deficiency, unspecified; Z96.641 Presence of right artificial hip joint; Z77.22 Contact with and (suspected) exposure to environmental tobacco smoke (acute) (chronic); Z86.73 Personal history of transient ischemic attack (TIA), and cerebral infarction without residual deficits; Z79.899 Other long term (current) drug therapy
CPT/HCPCS: 36415; 71045; 80053; 82728; 82948; 83615; 83690; 83735; 83880; 84145; 84439; 84443; 84480; 84484; 85025; 85027; 85610; 85730; 86140; 86706; 87040; 87340; 87637; 87641; 93005; 93306; 96365; 96366; 96367; 96368; 96375; 99285; A9270; G0257; G0378; J0248; J0692; J1100; J1644; J2270; J3370; J7030; Q5105

== ENCOUNTER 2023-06-22 13:29 | Emergency (ER) | payer MEDICARE, SELFPAY ==
[2023-06-22] VITALS (8 sets, daily range): BP systolic 146–193; BP diastolic 55–118; PULSE 61–78; RESP 15–19; TEMP 36.1; O2SAT 97–100
--- NOTE | ~2023-06-22 | XR_ITS ---
EXAMINATION: XR chest 1V portable DATE: 06/22/2023 15:44 INDICATION: Multiple syncopal episodes during dialysis today TECHNIQUE: frontal view of the chest was obtained. COMPARISON: Chest radiograph dated 04/26/2023 FINDINGS: No focal airspace opacities, pulmonary edema, pleural effusion or pneumothorax. Cardiomegaly. Enlarge ment of the central pulmonary arteries consistent with pulmonary arterial hypertension. IMPRESSION: 1. Cardiomegaly. No acute cardiopulmonary disease. Reviewed, dictated and finalized at location [facility].
[2023-06-22 15:36] LABS: Basophils Percent Auto 0.6 % (0.2-1.2); Eosinophils Absolute Auto 0.3 K/mm3 (0-0.3); Eosinophils Percent Auto 5.1 % (0-4.4); Hematocrit 34.9 % (37.0-47.0); Hemoglobin 10.7 g/dL (12.0-15.0); Immature Granulocyte Absolute 0.02 K/mm3 (0.00-0.031); Immature Granulocyte Percent A 0.4 % (0-0.5); Lymphocytes Absolute Auto 0.81 K/mm3 (0.9-3.2); Lymphocytes Percent Auto 15.8 % (18.3-44.2); Mean Corpuscular HGB Conc 30.7 g/dl (32-36); Mean Corpuscular Hemoglobin 31.5 pg (26-34); Mean Corpuscular Volume 102.6 fl (80-100); Mean Platelet Volume 9.6 fl (7.4-10.4); Monocytes Absolute Auto 0.5 K/mm3 (0.1-0.6); Monocytes Percent Auto 9.9 % (2.6-8.5); Neutrophils Absolute Auto 3.5 K/mm3 (1.3-6.7); Neutrophils Percent Auto 68.2 % (45.5-73.1); Platelet Count Result 178 k/mm3 (150-375); Red Cell Distribution Width 16.4 % (11.5-14.5); White Blood Count 5.1 K/mm3 (4.5-10.0)
[2023-06-22 15:44] LABS: Alanine Aminotransferase 12 U/L (6-35); Alkaline Phosphatase 111 U/L (38-126); Anion Gap 7 mmol/L (4-12); Aspartate Amino Transferase 26 U/L (14-36); Bilirubin,Total 0.4 mg/dL (0.2-1.3); Blood Urea Nitrogen 32 mg/dL (7-17); Calcium 8.1 mg/dL (8.4-10.2); Carbon Dioxide 26 mmol/L (22-30); Chloride 102 mmol/L (98-107); Estimated CRCL calculation 14 ml/min; Estimated Glomerular Filt Rate 18; Glucose 188 mg/dL (65-110); Potassium 4.1 mmol/L (3.4-5.0); Sodium 135 mmol/L (137-145)
[2023-06-22 16:45] LABS: INR 0.9; Prothrombin Time 12.9 Seconds (11.1-14.7)
--- NOTE | 2023-06-22 17:13 | ECG_ITS ---
Measurements Intervals [place] Rate: 71 P: 83 IA: 173 QRS: -46 QRSD: 130 T: -83 QT: 446 Avg RR 835 QTc: 469 QTcB 488 QTcF 473 Interpretive Statements SINUS RHYTHM POSSIBLE LEFT ATRIAL ENLARGEMENT [-0.1mV P WAVE IN V1/V2] POSSIBLE RIGHT VENTRICULAR CONDUCTION DELAY [RSR (QR) IN V1/V2] LEFT ANTERIOR FASCICULAR BLOCK [QRS AXIS <= -45, QR IN I,RS IN II] LEFT VENTRICULAR HYPERTROPHY AND ST-T CHANGE [VOLTAGE CRITERIA PLUS ST/T ABNORMALITY] POSSIBLE SEPTAL MYOCARDIAL INFARCTION, PROBABLY OLD [30 ms Q WAVE IN V1/V2] ABNORMAL ECG SEE SCANNED COPY FOR SIGNATURE MTDD
--- NOTE | 2023-06-22 17:23 | ED.GENADULT ---
HPI - General Adult General Chief complaint: Syncope Stated complaint: syncopy Time Seen by Provider: 06/22/23 14:41 History of Present Illness HPI narrative: Patient is an 83-year-old female who presents ER after having syncope while having dialysis. Occurred 2[address] dialysis. Denies chest pain or shortness of breath. Feels fine at this time. Related Data Home Medications Medication Instructions Recorded Confirmed carvedilol 12.5 mg tablet (Coreg) 12.5 mg PO Q12HR 10/14/22 06/06/23 hydralazine 25 mg tablet 25 mg PO Q8H 10/14/22 06/06/23 hydralazine 50 mg tablet 50 mg PO Q8H 10/14/22 06/06/23 acetaminophen 325 mg capsule 650 mg PO Q6H PRN Pain 02/24/23 06/06/23 docusate sodium 100 mg capsule 100 mg PO Q12HR Constipation 03/15/23 06/06/23 furosemide 40 mg tablet 40 mg PO DAILY 03/15/23 06/06/23 guaifenesin 100 mg/5 mL oral syrup 200 mg PO Q6H PRN Cough 03/15/23 06/06/23 nifedipine 30 mg tablet,extended 90 mg PO DAILY 03/15/23 06/06/23 release 24 hr (Procardia XL) ondansetron 4 mg disintegrating 4 mg PO Q6H PRN Nausea 03/15/23 06/06/23 tablet dextromethorphan-guaifenesin 30 1 tablet PO Q12H 04/24/23 06/06/23 mg-600 mg tablet extended [id number] hr (Mucinex DM) Allergies Allergy/AdvReac Type Severity Reaction Status Date / Time benazepril Allergy Severe Swelling Verified 05/20/23 14:43 of Lip/Tongue/Throat lisinopril Allergy Severe Anaphylaxis Verified 05/20/23 14:43 Review of Systems Review of Systems: All systems reviewed & are unremarkable except as noted in HPI and below Constitutional: Constitutional: Reports no additional constitutional complaints ENT: Reports system reviewed and no additional complaints, except as documented Cardiovascular: Cardiovascular: Reports no additional cardiovascular complaints Respiratory: Respiratory: Reports no additional respiratory complaints Neurologic: Reports syncope, Denies focal weakness and Denies numbness REPLACED BY [facility] Past Medical History Medical History (Updated 06/22/23 @ 17:26 by Nash White MD) Anemia Carotid artery disease Congestive heart failure Coronary artery disease Diastolic dysfunction End-stage renal disease on hemodialysis Essential (primary) hypertension Hypothyroidism, unspecified Obstructive sleep apnea Osteoarthritis Renal osteodystrophy Type 2 diabetes mellitus Vitamin D deficiency Surgical History Surgical History (Updated 06/06/23 @ 13:10 by Janet Lawson PA-C) History of bilateral knee arthroplasty History of bunionectomy of left great toe History of cataract extraction with lens replacement History of right hip replacement Status post creation of arteriovenous fistula Left upper arm Family History Family History Mother Diabetes mellitus Acute myocardial infarction Family history of diabetes mellitus in first degree relative Patient's mother is Hypertension Breast cancer Uterine cancer Sibling Family history of sarcoidosis Cerebrovascular accident Father , age 49 [place] Acute myocardial infarction Patient's mother is Hypertension Daughter Family history of lupus erythematosus Family history of arthritis Hypertension Social History Social History (Updated 06/06/23 @ 13:11 by Janet Lawson PA-C) Social History: Surrogate medical decision maker: Hue Welsh. Code status: Full code. Smoking packs per day: 1.5 Smoking cigarettes per day: 30.0 Years smoked: 15 Smoking pack-years: 22.50 Smoking status: Never smoker Tobacco type: cigarettes Second hand tobacco smoke exposure: Yes Additional smoking assessment comments: 40 years ago Alcohol intake: never Substance use: never Substance use type: does not use Do You Feel Safe in your Home?: Yes Lack of Transportation: No Lack of Food: Never True Current Housing: I Have Housing Concerned About F
== END 2023-06-22 18:55 ==
PROVIDERS: Emergency Provider Emergency Medicine; PCP Nurse Practitioner Family
DX: R55 Syncope and collapse (principal); E03.9 Hypothyroidism, unspecified; I25.10 Atherosclerotic heart disease of native coronary artery without angina pectoris; I50.9 Heart failure, unspecified; N18.6 End stage renal disease; E55.9 Vitamin D deficiency, unspecified; Z99.2 Dependence on renal dialysis; E11.22 Type 2 diabetes mellitus with diabetic chronic kidney disease; I13.2 Hypertensive heart and chronic kidney disease with heart failure and with stage 5 chronic kidney disease, or end stage renal disease; G47.33 Obstructive sleep apnea (adult) (pediatric); Z96.653 Presence of artificial knee joint, bilateral
CPT/HCPCS: 36415; 71045; 80053; 85025; 85610; 85730; 93005; 99284

== ENCOUNTER 2023-06-23 01:13 | Emergency (ER) | payer MEDICARE, SELFPAY ==
--- NOTE | ~2023-06-23 | CT_ITS ---
Clinical Indication: Chest pain, abdominal pain CT Scan of the Chest, Abdomen, and Pelvis with Contrast: Technique: Contiguous sections were acquired throughout the chest, abdomen, and pelvis after intraven ous administration of 100 cc of Omnipaque 350. Dose reduction technique was used on this scan by renaldo carrioning automated exposure control and iterative reconstruction technique. The dose-length product (DL P) was 1581.14 mGy-cm. COMPARISON: 05/20/2023, 03/15/2023 Findings: There is no evidence of any significant mediastinal, hilar or axillary lymphadenopathy. No aortic ane urysm or dissection. No pulmonary masses seen. There are extensive atherosclerotic calcifications of the aorta and probably the coronary arteries.. There is no evidence of pleural or pericardial effusion. There is probable subtle mosaic attenuation pattern of the lungs, with groundglass attenuation most p rominent in the right upper lobe. There is linear left basilar scarring. 4 mm right lower lobe pulmon alejandro nodule noted (axial image 53). The liver, spleen, pancreas, adrenals and kidneys are within normal limits. Calcified gallstones are present. There are atherosclerotic calcifications of the aorta. No lymphadenopathy. No bowel obstruction or bowel wall thickening. There is no evidence to suggest acute appendicitis. Urinary bladder is unremarkable. No pelvic mass evident. No ascites. There is streak artifact in the pelvis from right hip arthroplasty. Impression: No pulmonary embolus. Subtle mosaic attenuation pattern of the lungs, with groundglass attenuation most prominent in the ri ght upper lobe. Correlate for bronchiolitis, asthma, hypersensitivity pneumonitis, or other inflammat ory process. Cholelithiasis. Stable 4 mm right lower lobe pulmonary nodule. Reviewed, dictated and finalized at [facility]. Impression: No pulmonary embolus. Subtle mosaic attenuation pattern of the lungs, with groundglass attenuation mo st prominent in the right upper lobe. Correlate for bronchiolitis, asthma, hype rsensitivity pneumonitis, or other inflammatory process. Cholelithiasis. Stable 4 mm right lower lobe pulmonary nodule.
[2023-06-23 01:16] VITALS: BP 160/53; PULSE 76; RESP 17; TEMP 36.8; O2SAT 100
[2023-06-23 01:22] VITALS: BP 160/53; PULSE 75; RESP 17; TEMP 36.8; O2SAT 99
[2023-06-23 03:54] VITALS: BP 157/49; PULSE 69; RESP 17; O2SAT 99
--- NOTE | 2023-06-23 05:11 | ECG_ITS ---
Measurements Intervals [place] Rate: 67 P: 87 OK: 180 QRS: -46 QRSD: 135 T: -81 QT: 476 Avg RR 891 QTc: 491 QTcB 504 QTcF 494 Interpretive Statements SINUS RHYTHM POSSIBLE LEFT ATRIAL ENLARGEMENT [-0.1mV P WAVE IN V1/V2] INTRAVENTRICULAR CONDUCTION DELAY [130+ ms QRS DURATION] LEFT ANTERIOR FASCICULAR BLOCK [QRS AXIS <= -45, QR IN I,RS IN II] LEFT VENTRICULAR HYPERTROPHY AND ST-T CHANGE [VOLTAGE CRITERIA PLUS ST/T ABNORMALITY] ABNORMAL ECG SEE SCANNED COPY FOR SIGNATURE MTDD
[2023-06-23] MEDS: ONDANSETRON INJ 4 MG/2 ML VIAL IV PUSH (05:16)
--- NOTE | 2023-06-23 05:21 | ED.GENADULT ---
HPI - General Adult General Chief complaint: Nausea/Vomiting/Diarrhea Stated complaint: nausea and vomiting Time Seen by Provider: 06/23/23 03:19 History of Present Illness HPI narrative: patient is a 81-year-old female who presents emergency department chief complaint of nausea vomiting. Patient was seen in the emergency department yesterday after she passed out patient received 4 mg of Zofran by EMS prior to arrival reports she started to feel little better. Patient reports that she has pain in her midback and reports that then radiates down into her abdomen pelvis. Related Data Home Medications Medication Instructions Recorded Confirmed carvedilol 12.5 mg tablet (Coreg) 12.5 mg PO Q12HR 10/14/22 06/06/23 hydralazine 25 mg tablet 25 mg PO Q8H 10/14/22 06/06/23 hydralazine 50 mg tablet 50 mg PO Q8H 10/14/22 06/06/23 acetaminophen 325 mg capsule 650 mg PO Q6H PRN Pain 02/24/23 06/06/23 docusate sodium 100 mg capsule 100 mg PO Q12HR Constipation 03/15/23 06/06/23 furosemide 40 mg tablet 40 mg PO DAILY 03/15/23 06/06/23 guaifenesin 100 mg/5 mL oral syrup 200 mg PO Q6H PRN Cough 03/15/23 06/06/23 nifedipine 30 mg tablet,extended 90 mg PO DAILY 03/15/23 06/06/23 release 24 hr (Procardia XL) ondansetron 4 mg disintegrating 4 mg PO Q6H PRN Nausea 03/15/23 06/06/23 tablet dextromethorphan-guaifenesin 30 1 tablet PO Q12H 04/24/23 06/06/23 mg-600 mg tablet extended hr (Mucinex DM) Allergies Allergy/AdvReac Type Severity Reaction Status Date / Time benazepril Allergy Severe Swelling Verified 06/23/23 01:23 of Lip/Tongue/Throat lisinopril Allergy Severe Anaphylaxis Verified 06/23/23 01:23 Review of Systems Review of Systems: A 10 system review of systems was completed on the patient and is negative except for what is stated in the HPI. Nursing and ancillary documentation was reviewed. [facility] Past Medical History Medical History Anemia Carotid artery disease Congestive heart failure Coronary artery disease Diastolic dysfunction End-stage renal disease on hemodialysis Essential (primary) hypertension Hypothyroidism, unspecified Obstructive sleep apnea Osteoarthritis Renal osteodystrophy Type 2 diabetes mellitus Vitamin D deficiency Surgical History Surgical History History of bilateral knee arthroplasty History of bunionectomy of left great toe History of cataract extraction with lens replacement History of right hip replacement Status post creation of arteriovenous fistula Left upper arm Family History Family History Mother Diabetes mellitus Acute myocardial infarction Family history of diabetes mellitus in first degree relative Patient's mother is Hypertension Breast cancer Uterine cancer Sibling Family history of sarcoidosis Cerebrovascular accident Father , age 49 [place] Acute myocardial infarction Patient's mother is Hypertension Daughter Family history of lupus erythematosus Family history of arthritis Hypertension Social History Social History Social History: Surrogate medical decision maker: Hue Welsh. Code status: Full code. Smoking packs per day: 1.5 Smoking cigarettes per day: 30.0 Years smoked: 15 Smoking pack-years: 22.50 Smoking status: Never smoker Tobacco type: cigarettes Second hand tobacco smoke exposure: Yes Additional smoking assessment comments: 40 years ago Alcohol intake: never Substance use: never Substance use type: does not use Do You Feel Safe in your Home?: Yes Lack of Transportation: No Lack of Food: Never True Current Housing: I Have Housing Concerned About Future Housing: No Difficulty Paying Gas/Electric [employer]
[2023-06-23 05:51] LABS: Basophils Percent Auto 0.2 % (0.2-1.2); Eosinophils Absolute Auto 0.3 K/mm3 (0-0.3); Eosinophils Percent Auto 5.1 % (0-4.4); Hematocrit 32.2 % (37.0-47.0); Hemoglobin 9.8 g/dL (12.0-15.0); Immature Granulocyte Absolute 0.02 K/mm3 (0.00-0.031); Immature Granulocyte Percent A 0.4 % (0-0.5); Lymphocytes Absolute Auto 1.05 K/mm3 (0.9-3.2); Lymphocytes Percent Auto 21.6 % (18.3-44.2); Mean Corpuscular HGB Conc 30.4 g/dl (32-36); Mean Corpuscular Hemoglobin 31.6 pg (26-34); Mean Corpuscular Volume 103.9 fl (80-100); Mean Platelet Volume 8.5 fl (7.4-10.4); Monocytes Absolute Auto 0.6 K/mm3 (0.1-0.6); Monocytes Percent Auto 12.7 % (2.6-8.5); Neutrophils Absolute Auto 2.9 K/mm3 (1.3-6.7); Platelet Count Result 151 k/mm3 (150-375); Red Cell Distribution Width 16.2 % (11.5-14.5); White Blood Count 4.9 K/mm3 (4.5-10.0)
[2023-06-23 06:03] LABS: Alanine Aminotransferase 10 U/L (6-35); Albumin Level 3.6 g/dL (3.5-5.1); Alkaline Phosphatase 114 U/L (38-126); Anion Gap 8 mmol/L (4-12); Aspartate Amino Transferase 21 U/L (14-36); Bilirubin,Total 0.4 mg/dL (0.2-1.3); Blood Urea Nitrogen 41 mg/dL (7-17); Calcium 8.6 mg/dL (8.4-10.2); Carbon Dioxide 26 mmol/L (22-30); Chloride 105 mmol/L (98-107); Estimated CRCL calculation 12 ml/min; Estimated Glomerular Filt Rate 13; Glucose 75 mg/dL (65-110); Potassium 4.6 mmol/L (3.4-5.0); Sodium 139 mmol/L (137-145)
[2023-06-23 06:04] LABS: Appearance Urine Clear (Clear); Bacteria Urine None Seen /hpf; Bilirubin Urine Negative (Negative); Blood Urine Negative (Negative); Color Urine Yellow (Yellow); Glucose Urine UA Negative (Negative); Ketones Urine Negative (Negative); Leukocyte Esterase Ur Trace LEU/UL (Negative); Nitrate Urine Negative (Negative); Non Pathogenic Casts 0-2; Protein Urine 3+ mg/dL (Negative); RBC Urine 0-2 /hpf (0-2); Specific Grav Ur 1.012 (1.001-1.035); Squamous Epithelial Cell Urine None Seen /hpf (Few); Urobilinogen Urine 0.2 mg/dL (<2.0)
[2023-06-23 06:06] LABS: INR 1.1; Prothrombin Time 14.3 Seconds (11.1-14.7)
[2023-06-23 06:07] LABS: Partial Thromboplastin Time 31.2 Seconds (22.3-36.8)
[2023-06-23 06:12] LABS: Troponin I 0.014 ng/mL (0.000-0.034)
[2023-06-23 06:16] LABS: Add Urine Microscopic? YES
[2023-06-23 07:21] VITALS: BP 167/57; PULSE 71; RESP 17; O2SAT 99
[2023-06-23 07:22] VITALS: BP 167/57; PULSE 71; RESP 17; O2SAT 99
== END 2023-06-23 08:30 ==
PROVIDERS: Emergency Provider Emergency Medicine; PCP Nurse Practitioner Family
DX: J98.4 Other disorders of lung (principal); I25.10 Atherosclerotic heart disease of native coronary artery without angina pectoris; E11.22 Type 2 diabetes mellitus with diabetic chronic kidney disease; I13.2 Hypertensive heart and chronic kidney disease with heart failure and with stage 5 chronic kidney disease, or end stage renal disease; I50.9 Heart failure, unspecified; N18.6 End stage renal disease; Z99.2 Dependence on renal dialysis; N25.0 Renal osteodystrophy; E03.9 Hypothyroidism, unspecified; E55.9 Vitamin D deficiency, unspecified; G47.33 Obstructive sleep apnea (adult) (pediatric); D64.9 Anemia, unspecified; M19.90 Unspecified osteoarthritis, unspecified site; Z96.653 Presence of artificial knee joint, bilateral; Z96.1 Presence of intraocular lens; Z96.641 Presence of right artificial hip joint; Z87.891 Personal history of nicotine dependence; Z98.49 Cataract extraction status, unspecified eye; R94.31 Abnormal electrocardiogram [ECG] [EKG]; I45.9 Conduction disorder, unspecified; I44.4 Left anterior fascicular block; I51.7 Cardiomegaly; K80.20 Calculus of gallbladder without cholecystitis without obstruction; R91.1 Solitary pulmonary nodule
CPT/HCPCS: 36415; 71275; 74177; 80053; 81001; 83605; 83735; 84484; 85025; 85610; 85730; 87086; 93005; 96374; 99284; J2405; Q9967

== ENCOUNTER 2023-07-29 | Inpatient (IN) | payer MEDICARE, SELFPAY ==
[2023-07-28 23:56] VITALS: BP 187/64; PULSE 86; RESP 24; TEMP 36.6; O2SAT 98
[2023-07-29] VITALS (24 sets, daily range): BP systolic 77–189; BP diastolic 46–67; PULSE 36–102; RESP 16–32; TEMP 36.4–36.7; O2SAT 88–100; BMI 31.6
--- NOTE | ~2023-07-29 | XR_ITS ---
EXAMINATION: XR chest ET placement DATE: 07/29/2023 12:26 INDICATION: Endotracheal tube placement. Nasogastric tube placement. TECHNIQUE: frontal view of the chest was obtained. COMPARISON: Chest radiograph dated 07/29/2023 FINDINGS: Endotracheal tube tip 4.3 cm above the antoni. Nasogastric tube with distal tip in proximal side por t in the body of the stomach. Again seen are patchy airspace opacities throughout both lungs. No pneumothorax. Likely small right p leural effusion. The cardiomediastinal silhouette is normal. Right rotator cuff arthropathy. IMPRESSION: 1. Endotracheal tube and nasogastric tube in expected positions. 2. Patchy bilateral airspace opacities which represent pneumonia or pulmonary edema. 2. Small right pleural effusion. Reviewed, dictated and finalized at location A. IMPRESSION: 1. Endotracheal tube and nasogastric tube in expected positions. 2. Patchy bilateral airspace opacities which represent pneumonia or pulmonary e amaury. 2. Small right pleural effusion.
--- NOTE | ~2023-07-29 | XR_ITS ---
Portable chest x-ray Comparison: 06/22/2023 Clinical History: Chest pain Findings: There is bibasilar hazy airspace disease of the bilateral lower lobes, right worse than le ft, as well as focally in the right upper lobe. No definite pleural effusions. Cardiomediastinal carlos houette is stable. Bones and soft tissues are unremarkable. Impression: Hazy bilateral airspace disease, right worse than left. Correlate for pulmonary edema versus pneumoni a. Reviewed, dictated and finalized at location M. Impression: Hazy bilateral airspace disease, right worse than left. Correlate for pulmonary edema versus pneumonia.
--- NOTE | ~2023-07-29 | XR_ITS ---
EXAMINATION: XR chest 1V portable DATE: 07/29/2023 09:59 INDICATION: Respiratory distress TECHNIQUE: frontal and lateral views of the chest were obtained. COMPARISON: Chest radiograph dated 07/29/2023 FINDINGS: There are dense patchy airspace opacities in both lungs with perihilar and lower lung predominance. N o pleural effusion or pneumothorax. Heart size is normal. IMPRESSION: 1. Scattered patchy consolidation in both lungs and favor pneumonia over pulmonary edema. Reviewed, dictated and finalized at location A. IMPRESSION: 1. Scattered patchy consolidation in both lungs and favor pneumonia over pulmon alejandro edema.
--- NOTE | 2023-07-29 00:09 | ECG_ITS ---
SEE SCANNED COPY FOR CONFIRMED REPORT MTDD
--- NOTE | 2023-07-29 00:12 | ED.GENADULT ---
HPI - General Adult General Chief complaint: Chest Pain Stated complaint: CP/SOB Time Seen by Provider: 07/29/23 00:06 History of Present Illness HPI narrative: Patient a 83-year-old female who presents emergency department with chief complaint of chest pain and shortness of breath. Patient reports this evening she started having some discomfort in her chest and back and reports she also started feeling short of breath. Patient states that she normally does not require oxygen and was found to be hypoxic at the nursing facility and was placed on 3 L of nasal cannula oxygen. The patient states that she normally goes to dialysis Tuesday reports that she has not recently missed dialysis patient states she has had no cough denies fever Related Data Home Medications Medication Instructions Recorded Confirmed carvedilol 12.5 mg tablet (Coreg) 12.5 mg PO Q12HR 10/14/22 06/06/23 hydralazine 25 mg tablet 25 mg PO Q8H 10/14/22 06/06/23 hydralazine 50 mg tablet 50 mg PO Q8H 10/14/22 06/06/23 acetaminophen 325 mg capsule 650 mg PO Q6H PRN Pain 02/24/23 06/06/23 docusate sodium 100 mg capsule 100 mg PO Q12HR Constipation 03/15/23 06/06/23 furosemide 40 mg tablet 40 mg PO DAILY 03/15/23 06/06/23 guaifenesin 100 mg/5 mL oral syrup 200 mg PO Q6H PRN Cough 03/15/23 06/06/23 nifedipine 30 mg tablet,extended 90 mg PO DAILY 03/15/23 06/06/23 release 24 hr (Procardia XL) ondansetron 4 mg disintegrating 4 mg PO Q6H PRN Nausea 03/15/23 06/06/23 tablet dextromethorphan-guaifenesin 30 1 tablet PO Q12H 04/24/23 06/06/23 mg-600 mg tablet extended hr (Mucinex DM) Allergies Allergy/AdvReac Type Severity Reaction Status Date / Time benazepril Allergy Severe Swelling Verified 07/29/23 00:14 of Lip/Tongue/Throat lisinopril Allergy Severe Anaphylaxis Verified 07/29/23 00:14 Review of Systems Review of Systems: A 10 system review of systems was completed on the patient and is negative except for what is stated in the HPI. Nursing and ancillary documentation was reviewed. [facility] Past Medical History Medical History Anemia Carotid artery disease Congestive heart failure Coronary artery disease Diastolic dysfunction End-stage renal disease on hemodialysis Essential (primary) hypertension Hypothyroidism, unspecified Obstructive sleep apnea Osteoarthritis Renal osteodystrophy Type 2 diabetes mellitus Vitamin D deficiency Surgical History Surgical History History of bilateral knee arthroplasty History of bunionectomy of left great toe History of cataract extraction with lens replacement History of right hip replacement Status post creation of arteriovenous fistula Left upper arm Family History Family History Mother Diabetes mellitus Acute myocardial infarction Family history of diabetes mellitus in first degree relative Patient's mother is Hypertension Breast cancer Uterine cancer Sibling Family history of sarcoidosis Cerebrovascular accident Father , age 49 [place] Acute myocardial infarction Patient's mother is Hypertension Daughter Family history of lupus erythematosus Family history of arthritis Hypertension Social History Social History Social History: Surrogate medical decision maker: Hue Welsh. Code status: Full code. Smoking packs per day: 1.5 Smoking cigarettes per day: 30.0 Years smoked: 15 Smoking pack-years: 22.50 Smoking status: Never smoker Tobacco type: cigarettes Second hand tobacco smoke exposure: Yes Additional smoking assessment comments: 40 years ago Alcohol intake: never Substance use: never Substance use type: does not use Do You Feel Safe in yo
[2023-07-29] MEDS: NITROGLYCERIN SL 0.4 MG TABLET SUBLINGUAL (00:18)
[2023-07-29 00:42] LABS: Basophils Percent Auto 0.4 % (0.2-1.2); Eosinophils Absolute Auto 0.1 K/mm3 (0-0.3); Eosinophils Percent Auto 1.1 % (0-4.4); Hematocrit 35.2 % (37.0-47.0); Immature Granulocyte Absolute 0.05 K/mm3 (0.00-0.031); Immature Granulocyte Percent A 0.5 % (0-0.5); Lymphocytes Absolute Auto 0.89 K/mm3 (0.9-3.2); Lymphocytes Percent Auto 8.1 % (18.3-44.2); Mean Corpuscular HGB Conc 31.3 g/dl (32-36); Mean Corpuscular Hemoglobin 31.7 pg (26-34); Mean Corpuscular Volume 101.4 fl (80-100); Mean Platelet Volume 9.4 fl (7.4-10.4); Monocytes Absolute Auto 0.7 K/mm3 (0.1-0.6); Monocytes Percent Auto 6.3 % (2.6-8.5); Neutrophils Absolute Auto 9.2 K/mm3 (1.3-6.7); Neutrophils Percent Auto 83.6 % (45.5-73.1); Nucleated Red Blood Cells Perc 0.2 % (0.0-0.2); Platelet Count Result 221 k/mm3 (150-375); Red Blood Count 3.47 M/mm3 (4.2-5.4); Red Cell Distribution Width 15.3 % (11.5-14.5)
[2023-07-29 00:48] LABS: Alveolar/Arterial O2 Gradient 46.2 mmHg; Base Excess ABG 0.4 mEq/l (+/-2.0); Fractional Inspired Oxygen 21 %; HCO3 ABG 25.8 mEq/l (22.0-26.0); Oxygen Content ABG 13.6 %vol (16.0-22.0); PCO2 ABG 45.1 mmHg (35.0-45.0); PO2 FiO2 Ratio Arterial Blood 2.36 %; Total Hemoglobin 11.7 g/dL (12.0-18.0); pH ABG 7.376 (7.350-7.450)
[2023-07-29 00:53] LABS: Alanine Aminotransferase 14 U/L (6-35); Albumin Level 4.2 g/dL (3.5-5.1); Alkaline Phosphatase 222 U/L (38-126); Anion Gap 11 mmol/L (4-12); Aspartate Amino Transferase 24 U/L (14-36); Bilirubin,Total 0.4 mg/dL (0.2-1.3); Blood Urea Nitrogen 65 mg/dL (7-17); Calcium 10.7 mg/dL (8.4-10.2); Carbon Dioxide 24 mmol/L (22-30); Chloride 103 mmol/L (98-107); Estimated CRCL calculation 8 ml/min; Estimated Glomerular Filt Rate 8; Glucose 208 mg/dL (65-110); Lipase 166 U/L (23-300); Magnesium 2.2 mg/dL (1.6-2.3); Partial Thromboplastin Time 25.4 Seconds (22.3-36.8); Potassium 4.5 mmol/L (3.4-5.0); Prothrombin Time 13.8 Seconds (11.1-14.7); Sodium 138 mmol/L (137-145)
[2023-07-29 00:54] LABS: PO2 ABG 49.5 mmHg (80.0-100.0)
[2023-07-29 00:56] LABS: Modified Allen's Test Pass; Oxyhemoglobin 82.5 % THb (90.0-100.0); Site Drawn RIGHT RADIAL
[2023-07-29 01:05] LABS: Influenza A QL RT-PCR Negative (Negative); Influenza B QL RT-PCR Negative (Negative); RSV RNA, RT-PCR Negative (Negative); SARS-CoV-2 RNA PCR Negative (Negative)
[2023-07-29] MEDS: CEFEPIME 1 GM/NS 50 ML 1 GM/50 ML BAG IVPB (01:30)
[2023-07-29] MEDS: VANCOMYCIN 1,750 MG/NS 500 ML 1,750 MG/500 ML BAG 250 MG IVPB (02:15)
--- NOTE | 2023-07-29 04:47 | PC.NURSE ---
0220 vitals: Bp 167/59, P 82, R 24, O 96% 0234 : pt restless, diaphoretic, 84% on 5L NC pt placed on 15L non rebreather - 100% Respiratory called for breathing tx 0244 : pt repositioned respiratory called for pt to be placed on bipap 0334 : Bp 90/53, P 43, R 18, O 95% 0415 : Bp 109/55, P 44, R 24, O 95% 0418 : Bp 167/56, P 43 R 19, O 97% MD Ashlee made aware of each change in pt status.
[2023-07-29 04:52] LABS: Troponin I 0.073 ng/mL (0.000-0.034)
[2023-07-29 04:53] LABS: Procalcitonin 0.6 ng/mL
[2023-07-29 05:07] LABS: Appearance Urine Clear (Clear); Bacteria Urine None Seen /hpf; Bilirubin Urine Negative (Negative); Blood Urine Negative (Negative); Color Urine Yellow (Yellow); Glucose Urine UA 1+ mg/dL (Negative); Ketones Urine Negative (Negative); Leukocyte Esterase Ur Negative LEU/UL (Negative); Need Manual Microscopic Reviewed; Nitrate Urine Negative (Negative); Non Pathogenic Casts 0-2; Protein Urine 3+ mg/dL (Negative); RBC Urine 0-2 /hpf (0-2); Specific Grav Ur 1.014 (1.001-1.035); Squamous Epithelial Cell Urine None Seen /hpf (Few); Urobilinogen Urine 0.2 mg/dL (<2.0); WBC Urine 0-5 /hpf (0-3)
[2023-07-29 05:08] LABS: Add Urine Microscopic? YES
--- NOTE | 2023-07-29 05:40 | ADMGEN ---
This patient, Lilian Mandel, was admitted to IMU Room 213-01. Patient/family oriented to hospital policies and general routines including ID bracelet, bed and alarms, visiting hours, pain management, procedures, bathroom and other care routines, personal items, smoking policy, room service/diet, and visiting hours. Information on how to activate the Rapid Response Team has been discussed. Patient/Family are encouraged to report perceived risks to care and to ask questions if they do not understand what they are told or what they should do.
[2023-07-29 06:09] LABS: Troponin I 0.136 ng/mL (0.000-0.034)
--- NOTE | 2023-07-29 08:26 | PM.IMHP ---
H&P: HPI History of Present Illness Date/Time: 07/29/23 08:26 Chief Complaint: Chest pain Narrative: 83-year-old female who presents to the ED with chief complaint of chest pain and shortness of breath. Patient reported she started having some discomfort in her chest and back last evening associated shortness of breath. Normally does not require oxygen and was noted to be hypoxic at the nursing facility where she resides. She was placed on 2 L oxygen via nasal cannula. She has also end-stage renal disease and goes to hemodialysis Tuesday. She has been recently missed any dialysis sessions. She denies any cough or fever. History of congestive heart failure/coronary artery disease/diastolic dysfunction/uncertain disease on hemodialysis/hypertension/hypothyroidism/obstructive sleep apnea/type 2 diabetes mellitus/osteoarthritis/carotid artery disease/chronic anemia/renal osteodystrophy. As left upper arm AV fistula Upon arrival to the ED she was hypertensive in 180s systolic oxygen saturation was adequate on 3 L oxygen via nasal cannula. Laboratory workup revealed WBC of 11 hemoglobin of 11 creatinine was 6 electrolytes normal blood sugar was VIII. Influenza RSV and COVID test was negative. EKG showed junctional rhythm with bradycardia nonspecific ST-T changes, some ST depressions in septal leads, intraventricular conduction delay. AB.37/45/49/25. Initial troponin was 0.073 increase to 0.136. UA is negative. Chest x-ray showed hazy bilateral airspace disease right worse than left correlate for pulmonary edema versus pneumonia. Blood cultures been obtained. Patient has been started on is vancomycin cefepime. Non ST-elevation MT versus pulmonary edema. Will repeat EKG await 3rd set of troponin. Cardiology consult. Echocardiogram 06/07/2023: EF 50-55% grade 1 diastolic dysfunction mild aortic valve stenosis mild TR severe aortic valve calcification. She is admitted in the setting for further treatment. Shortly after admission she was noted to be bradycardic and high 30s to 40s with junctional rhythm and confused. Patient had been on BiPAP since admission. Review of Systems Review of Systems: ROS unobtainable: Yes unobtainable due to mental status PMFSH Past Medical History Medical History Anemia Carotid artery disease Congestive heart failure Coronary artery disease Diastolic dysfunction End-stage renal disease on hemodialysis Essential (primary) hypertension Hypothyroidism, unspecified Obstructive sleep apnea Osteoarthritis Renal osteodystrophy Type 2 diabetes mellitus Vitamin D deficiency Surgical History Surgical History History of bilateral knee arthroplasty History of bunionectomy of left great toe History of cataract extraction with lens replacement History of right hip replacement Status post creation of arteriovenous fistula Left upper arm Family History Family History Mother Diabetes mellitus Acute myocardial infarction Family history of diabetes mellitus in first degree relative Patient's mother is Hypertension Breast cancer Uterine cancer Sibling Family history of sarcoidosis Cerebrovascular accident Father , age 49 [place] Acute myocardial infarction Patient's mother is Hypertension Daughter Family history of lupus erythematosus Family history of arthritis Hypertension Social History Social History Social History: Surrogate medical decision maker: Hue Welsh. Code status: Full code. Smoking packs per day: 1 Smoking cigarettes per day: 20.0 Years smoked: 20 Smoking pack-years: 20.00 Smoking status: Former smoker Tobacco type: cigarettes Second hand tobacco smoke exposure: No Smoking end date: 03/14/83 Additional s
[2023-07-29 08:32] LABS: Glucose Point of Care 201 mg/dl (65-105)
--- NOTE | 2023-07-29 08:38 | ECG_ITS ---
SEE SCANNED COPY FOR CONFIRMED REPORT MTDD
[2023-07-29 09:04] LABS: Troponin I 0.357 ng/mL (0.000-0.034)
[2023-07-29 09:20] LABS: MRSA (PCR) NOT DETECTED (NOT DETECTE)
--- NOTE | 2023-07-29 09:38 | PC.NURSE ---
0938-Staff to bedside, patient lethargic, HR-38, BP- 94/46, O2-88% on 505 FiO2 on BiPaP. RN increased FiO2 to 70%. Dr Miller notified. MD and nurse discharge to bedside. 939-Atropine x1 given IVP per MD, HR increased to 70 bpm. BP- 130/59. 42-Dr. Smart to bedside, HR-50. pCXR and ABG ordered. Patient to be transferred to ICU for higher level of care.
[2023-07-29] MEDS: ATROPINE SULFATE 1 MG/10 ML SYRINGE IV PUSH (09:40)
--- NOTE | 2023-07-29 10:08 | PC.NURSE ---
This patient, Lilian Mandel, was received from [[id number]] on 07/29/23 at 1008. Patient/family oriented to unit policies and routines
[2023-07-29] MEDS: FUROSEMIDE INJ 100 MG/10 ML VIAL 80 MG IV PUSH (10:09)
[2023-07-29] MEDS: FUROSEMIDE INJ 40 MG/4 ML VIAL 80 MG (10:09)
[2023-07-29 10:26] LABS: Alveolar/Arterial O2 Gradient 378.3 mmHg; Base Excess ABG -6.2 mEq/l (+/-2.0); Carboxyhemoglobin 0.6 % THb (0-2.0); Fractional Inspired Oxygen 100 %; HCO3 ABG 23.5 mEq/l (22.0-26.0); Methemoglobin ABG 0.3 %THb (0-1.5); Oxygen Content ABG 17.3 %vol (16.0-22.0); Oxygen Saturation ABG 99.4 % (95.0-100.0); Oxyhemoglobin 98.5 % THb (90.0-100.0); PO2 ABG 266.3 mmHg (80.0-100.0); PO2 FiO2 Ratio Arterial Blood 2.66 %; Reduced Hemoglobin 0.6 %THb (0-5.0)
[2023-07-29 10:27] LABS: Device NON-INVASIVE VENT; Modified Allen's Test Pass; Site Drawn RIGHT BRACHIAL
[2023-07-29 10:28] LABS: pH ABG 7.153 (7.350-7.450)
[2023-07-29 10:29] LABS: PCO2 ABG 68.4 mmHg (35.0-45.0)
[2023-07-29 10:30] LABS: Non-Invasive Expiratory Pressure 6 CMH2O; Non-Invasive Inspiratory Pressure 12 CMH2O; Non-Invasive Vent Rate 16 /MIN
[2023-07-29 10:41] LABS: Basophils Percent Auto 0.2 % (0.2-1.2); Hematocrit 37.6 % (37.0-47.0); Hemoglobin 11.2 g/dL (12.0-15.0); Immature Granulocyte Absolute 0.06 K/mm3 (0.00-0.031); Immature Granulocyte Percent A 0.6 % (0-0.5); Lymphocytes Absolute Auto 0.54 K/mm3 (0.9-3.2); Lymphocytes Percent Auto 5.3 % (18.3-44.2); Mean Corpuscular HGB Conc 29.8 g/dl (32-36); Mean Corpuscular Hemoglobin 31.3 pg (26-34); Mean Platelet Volume 9.5 fl (7.4-10.4); Monocytes Absolute Auto 0.7 K/mm3 (0.1-0.6); Monocytes Percent Auto 6.5 % (2.6-8.5); Neutrophils Absolute Auto 8.9 K/mm3 (1.3-6.7); Neutrophils Percent Auto 87.4 % (45.5-73.1); Platelet Count Result 210 k/mm3 (150-375); Red Blood Count 3.58 M/mm3 (4.2-5.4); Red Cell Distribution Width 15.3 % (11.5-14.5); White Blood Count 10.2 K/mm3 (4.5-10.0)
--- NOTE | 2023-07-29 10:45 | PC.NURSE ---
Daughter Hue update on plan of care. Family ok to intubate and place central line.
[2023-07-29 10:53] LABS: Lactic Acid Reflex 1.5 mmol/L (0.7-2.0)
[2023-07-29 10:55] LABS: INR 1.1; Partial Thromboplastin Time 28.4 Seconds (22.3-36.8); Prothrombin Time 14.5 Seconds (11.1-14.7)
[2023-07-29 10:56] LABS: Alanine Aminotransferase 22 U/L (6-35); Albumin Level 4.1 g/dL (3.5-5.1); Alkaline Phosphatase 159 U/L (38-126); Anion Gap 12 mmol/L (4-12); Aspartate Amino Transferase 89 U/L (14-36); Bilirubin,Total 0.4 mg/dL (0.2-1.3); Blood Urea Nitrogen 68 mg/dL (7-17); Calcium 10.2 mg/dL (8.4-10.2); Carbon Dioxide 23 mmol/L (22-30); Chloride 104 mmol/L (98-107); Estimated CRCL calculation 6 ml/min; Estimated Glomerular Filt Rate 7; Glucose 184 mg/dL (65-110); Magnesium 2.4 mg/dL (1.6-2.3); Potassium 5.1 mmol/L (3.4-5.0); Sodium 139 mmol/L (137-145)
--- NOTE | 2023-07-29 11:00 | PM.CNNEP ---
Assessment and Plan Assessment and plan (1) End stage renal disease: Code(s): N18.6 - End stage renal disease Status: Chronic Assessment and Plan: HD today continue M/W/F dialysis schedule during hospital stay follow electrolytes, volume status, and clearance (2) Acute respiratory failure: Code(s): J96.00 - Acute respiratory failure, unspecified whether with hypoxia or hypercapnia Status: Acute Assessment and Plan: noted hypercapnea and hypoxia failed BiPAP therapy being intubated at this time due to impending respiratory failure, altered mental status, and bradycarida continue ventilator support (3) Shock: Code(s): R57.9 - Shock, unspecified Status: Acute Assessment and Plan: dropping BP noted associated with #4 IV albumin for volume expansion to start pressors (dopamine) as well follow trend of hemodynamics (4) Junctional bradycardia: Code(s): R00.1 - Bradycardia, unspecified Status: Acute Assessment and Plan: as noted by EKG troponins mildly elevated - concern for NSTEMI Cardiology consulted on heparin infusion (5) Type II diabetes mellitus with renal manifestations: Qualifiers: Chronic kidney disease stage: stage 4 (severe) Diabetes mellitus complication detail: with chronic kidney disease Diabetes mellitus senior care insulin use: without nitric acid concentrator operator use Qualified Code(s): E11.22 - Type 2 diabetes mellitus with diabetic chronic kidney disease; N18.4 - Chronic kidney disease, stage 4 (severe) Code(s): E11.29 - Type 2 diabetes mellitus with other diabetic kidney complication Status: Chronic Assessment and Plan: follow accu-cheks glycemic control per intensivisit Greater than 20 minutes was spent in detailed review of the events that led to her presentation with subsequent deterioration earlier this morning and transferred to the ICU for impending respiratory failure, intubation, and mechanical ventilation. Interventions to date have been noted in the hope of clinical improvement however ongoing family discussion is likely to occur given her advanced age and multiple comorbidities as already noted. I will continue follow patient with you while she remains hospitalized make further recommendations as deemed necessary. Thank you for allowing me to participate in the care of this patient. History of Present Illness Reason for Consult Consult date: 07/29/23 Reason for consult: end stage renal disease Chief Complaint Chief complaint: AHRF,Pneumonia,ESRD on HD History of Present Illness Narrative: The patient is an 83-year-old female with a past medical history as outlined below who presented to [facility] Emergency Room from her nursing facility with complains of shortness of breath and chest pain.? all the information that I have obtained is from review of the electronic medical record and discussion with the physicians/nurses involved in the patient's care as the patient is unable to provide any history due to her altered mental status and worsening respiratory status. Apparently, the patient complained of chest pain yesterday evening in association with hypoxia that was noted by nursing. She was placed on supplemental oxygen via nasal cannula and subsequently transferred to the emergency room for further assessment. Workup and evaluation emergency room demonstrated the patient to be somewhat hypertensive with systolic BP is in the 180s and she had adequate oxygen saturations with 3 L of supplemental oxygen by nasal cannula routine blood test demonstrated a mildly elevated white blood cell count, normal hemoglobin/ hematocrit for this patient, and no critical electrolyte abnormalities but an elevated BUN and creatinine consistent with her known history of end-stage renal disease. Her liver function tests were normal and her troponins were mildly elevated but this was thoug
[2023-07-29 11:09] LABS: Troponin I 0.425 ng/mL (0.000-0.034)
[2023-07-29] MEDS: ETOMIDATE 20 MG/10 ML AMPUL IV PUSH (11:13)
[2023-07-29] MEDS: ROCURONIUM BROMIDE 50 MG/5 ML VIAL IV PUSH (11:14)
[2023-07-29] MEDS: PROPOFOL IV EMULSION 100 ML 2.67 MG IV CONT (11:14)
[2023-07-29 11:34] LABS: Glucose Point of Care 187 mg/dl (65-105)
[2023-07-29 11:36] LABS: Anisocytosis 1+; Hypochromasia 1+; Platelet Estimate Adequate (Adequate); Schistocytes None Seen
[2023-07-29 11:48] LABS: Hepatitis B Surface Antigen Negative (Negative)
[2023-07-29 11:52] LABS: Triglycerides 51 mg/dL (<150)
[2023-07-29 11:53] LABS: Phosphorus 10.3 mg/dL (2.5-4.5)
[2023-07-29 12:07] LABS: Hepatitis B Surface Anti Res Positive
[2023-07-29 12:15] LABS: Alveolar/Arterial O2 Gradient 328.6 mmHg; Base Excess ABG -2.3 mEq/l (+/-2.0); Carboxyhemoglobin 0.5 % THb (0-2.0); Fractional Inspired Oxygen 100 %; HCO3 ABG 20.3 mEq/l (22.0-26.0); Methemoglobin ABG 0.3 %THb (0-1.5); Oxygen Content ABG 16.5 %vol (16.0-22.0); Oxygen Saturation ABG 99.8 % (95.0-100.0); Oxyhemoglobin 98.9 % THb (90.0-100.0); PCO2 ABG 28.1 mmHg (35.0-45.0); PO2 ABG 356.3 mmHg (80.0-100.0); PO2 FiO2 Ratio Arterial Blood 3.56 %; Reduced Hemoglobin 0.3 %THb (0-5.0); Total Hemoglobin 11.2 g/dL (12.0-18.0); pH ABG 7.476 (7.350-7.450)
[2023-07-29 12:16] LABS: Device VENTILATOR; Site Drawn RIGHT BRACHIAL
[2023-07-29 12:17] LABS: Arterial Blood Gas PEEP 8 cmH2O; Arterial Blood Gas Tidal Volume 400 ml; Arterial Blood Gas Vent Mode CMV; Arterial Blood Gas Ventilator rate 20 /MIN
--- NOTE | 2023-07-29 12:18 | PCDIET ---
Tube feeding recommendations: Nepro at 20 ml/hr advance by 10 ml q 4 hours to goal rate of 40 ml/hr. Tube feedings at goal rate providing 1584 kcals/71 gm protein/640 ml water. Flush 30 ml q 4 hours. Will continue to monitor.
[2023-07-29] MEDS: HEPARIN SOD/D5W 100 UNITS/ML 25,000 UNITS/250 ML BAG 9 UNITS IV CONT (12:23)
[2023-07-29] MEDS: FENTANYL 2,500MCG/NS250ML(*CRX 2,500 MCG/250 ML BAG IV CONT (12:27)
[2023-07-29] MEDS: MIDAZOLAM 100MG/NS 100ML(*CRX) 100 MG/100 ML BAG IV CONT (12:27)
[2023-07-29] MEDS: ALBUMIN HUMAN 25% 25 GM/100 ML 100 ML IVPB (12:30)
[2023-07-29] MEDS: GLUCAGON FOR INJ 1 MG VIAL 2 MG IV PUSH (12:40)
[2023-07-29] MEDS: DOPamine 400 MG/D5W 250 ML 400 MG/250 ML BAG 33.38 MG IV CONT (12:42)
--- NOTE | 2023-07-29 12:52 | PC.NURSE ---
Daughter at bedside.
[2023-07-29] MEDS: LORazepam INJ (*CRX) 2 MG/ML VIAL IV PUSH (12:55)
[2023-07-29] MEDS: MORPHINE SULFATE INJ (*CRX) 10 MG/ML AMP 5 MG IV PUSH (12:55)
--- NOTE | 2023-07-29 13:01 | PC.NURSE ---
Dr. Smart, Dr. Hernandez at bedside, family decided to make patient comfort care status.
--- NOTE | 2023-07-29 13:05 | PC.NURSE ---
Patient extubated to room air.
--- NOTE | 2023-07-29 13:07 | PM.CNCAR ---
Assessment and Plan Assessment and plan (1) Acute hypoxemic respiratory failure: Code(s): J96.01 - Acute respiratory failure with hypoxia Status: Acute (2) NSTEMI (non-ST elevated myocardial infarction): Code(s): I21.4 - Non-ST elevation (NSTEMI) myocardial infarction Status: Acute (3) Shock: Code(s): R57.9 - Shock, unspecified Status: Acute (4) Junctional bradycardia: Code(s): R00.1 - Bradycardia, unspecified Status: Acute (5) End-stage renal disease on hemodialysis: Code(s): N18.6 - End stage renal disease; Z99.2 - Dependence on renal dialysis Status: Chronic (6) Type 2 diabetes mellitus: Code(s): E11.9 - Type 2 diabetes mellitus without complications Status: Chronic (7) Hypertension: Qualifiers: Hypertension type: unspecified Qualified Code(s): I10 - Essential (primary) hypertension Code(s): I10 - Essential (primary) hypertension Status: Acute (8) Mixed hyperlipidemia: Code(s): E78.2 - Mixed hyperlipidemia Status: Acute (9) Carotid artery disease: Qualifiers: Carotid artery disease type: stenosis Laterality: right Qualified Code(s): I65.21 - Occlusion and stenosis of right carotid artery Code(s): I77.9 - Disorder of arteries and arterioles, unspecified Status: Acute (10) Congestive heart failure: Qualifiers: Heart failure chronicity: acute on chronic Heart failure type: diastolic Qualified Code(s): I50.33 - Acute on chronic diastolic (congestive) heart failure Code(s): I50.9 - Heart failure, unspecified Status: Chronic (11) Coronary artery disease: Code(s): I25.10 - Atherosclerotic heart disease of [place] coronary artery without angina pectoris Status: Chronic Plan This is an 83 year old female with coronary artery disease, heart failure with preserved LVEF, ESRD on HD, history of stroke, type 2 diabetes mellitus, hypertension, hyperlipidemia, GERD who presented to [place] [facility] from her nursing facility for chest pain and shortness of breath. Patient intubated at the time of my evaluation, therefore, unable to obtain history from the patient. History obtained from the medical chart, medical team, and the patient's daughter and [id number]. Patient reported chest pain and shortness of breath that began last evening. She was noted to be hypoxic at her fci. She was placed on 2L NC. Upon arrival to the ED, she was hypertensive with SBP as high as 190s. EKG showed junctional bradycardia, ST depressions in the lateral leads. ABG showed pH of 7.1. Initial troponin of 0.073, which increased to 0.425. CXR with bilateral airspace disease. Patient was placed on BIPAP and admitted to the IMU. However, patient had worsening respiratory status, and she was transferred to the ICU and intubated. Upon my evaluation, patient in junctional bradycardia in the 30s to 40s. Initially normotensive, however, then became quit hypotensive with SBP in the 70s. Patient started on Dopamine drip, with improvement in heart rates. Dr. Smart and I had a lengthy discussion with the patient's daughter and [id number] regarding her clinical status. Family decided to make her DNR, and then subsequently comfort care measures. Patient subsequently extubated, Dopamine drip discontinued. History of Present Illness History of Present Illness Consult date/time: 07/29/23 13:07 Requesting physician: Luis Carlos Miller MD Consult reason: Other (Elevated troponin, chest pain, bradycardia ) Reason For Visit: AHRF,Pneumonia,ESRD on HD Narrative: This is an 83 year old female with coronary artery disease, heart failure with preserved LVEF, ESRD on HD, history of stroke, type 2 diabetes mellitus, hypertension, hyperlipidemia, GERD who presented to [place] [facility] from her nursing facility for chest pain and shortness of breath. Patient intubated at the time of my evaluation, therefore, unab
--- NOTE | 2023-07-29 13:08 | WPDCNINT ---
Assessment and Plan Assessment and plan (1) Acute respiratory failure: Code(s): J96.00 - Acute respiratory failure, unspecified whether with hypoxia or hypercapnia Status: Acute Assessment and Plan: Patient with acute hypercapnic and hypoxic respiratory failure, failed BiPAP, intubated on 07/29/2023 in the ICU due to impending respiratory failure and decreased mentation and bradycardia. -patient was placed on CMV mode of ventilation, peep of 8, 100% initially -post intubation gases much improved, wean FiO2 to maintain O2 sats greater than 92% -chest x-ray reviewed -patient was initially started on fentanyl and Versed infusion but due to her bradycardia hypotension they were discontinued -the school athletic director Dr. Hernandez and myself discussed with daughter Meri and updated her with the situation regarding hypotension, bradycardia and hypoxic/hypercapnic respiratory failure. The daughter decided to make her comfort measures and withdraw support. -comfort measure orders were placed in the chart, patient successfully extubate, stop all medications (2) NSTEMI (non-ST elevated myocardial infarction): Code(s): I21.4 - Non-ST elevation (NSTEMI) myocardial infarction Status: Acute Assessment and Plan: Patient presented with chest pain, initial EKG showed junctional bradycardia -serial troponins were elevated -patient was started on heparin infusion -cardiology was consulted -cardiology was present when patient was in shock, bradycardia it was very helpful in discussing the diagnosis and prognosis with the family (3) Junctional bradycardia: Code(s): R00.1 - Bradycardia, unspecified Status: Acute Assessment and Plan: Patient was made comfort measures (4) ESRD on hemodialysis: Code(s): N18.6 - End stage renal disease; Z99.2 - Dependence on renal dialysis Status: Acute Assessment and Plan: History of end-stage renal disease, dialysis on Mondays, Wednesdays and Fridays -follows Dr. Fulton -pulmonary edema could be related to volume overload due to end-stage renal disease or NSTEMI -plan was to dialyze her today but family has made a comfort measures (5) Pulmonary edema: Qualifiers: Chronicity: acute Qualified Code(s): J81.0 - Acute pulmonary edema Code(s): J81.1 - Chronic pulmonary edema Status: Acute Assessment and Plan: As above (6) Shock: Code(s): R57.9 - Shock, unspecified Status: Acute Assessment and Plan: Patient went into shock, septic versus cardiogenic -junctional bradycardia -patient was started on dopamine and responded, patient was also given glucagon since she was on Coreg at home. -patient was given albumin 25% for volume expansion -family decided to make her comfort measures and withdraw support (7) Type II diabetes mellitus with renal manifestations: Qualifiers: Diabetes mellitus buttermaker insulin use: without usp use Diabetes mellitus complication detail: with chronic kidney disease Chronic kidney disease stage: stage 4 (severe) Qualified Code(s): E11.22 - Type 2 diabetes mellitus with diabetic chronic kidney disease; N18.4 - Chronic kidney disease, stage 4 (severe) Code(s): E11.29 - Type 2 diabetes mellitus with other diabetic kidney complication Status: Chronic Assessment and Plan: History of diabetes Plan DVT prophylaxis: On heparin drip pressure Nutrition: NPO Code Status: DNR comfort measures Critical Care Time Spent: 95 minutes Discussed with daughter Meri and patient's [id number] and updated them with patient's condition and plan of care along with Dr. Hernandez, school athletic director was also present at the time of the family meeting. The daughter stated that the patient has suffered a lot and she does not want the patient to go through any more suffering and has decided to make her comfort measures and withdraw support. Due to a high probability of clinica
--- NOTE | 2023-07-29 13:29 | WPDPROCEDUR ---
Procedures Central Line Placement Right Femoral: Central Line Date: 07/29/23 Central Line Time: 11:30 Discussed w/ the patient/family/POA,the placement of a central venous catheter, including its clinical necessity/indication & associated potential risks, benifits and alternatives.: Yes The patient/family/POA understand(s) and acknowledge(s) the need to proceed with central venous catheter insertion as an important element of the patient's clinical management.: Yes Consent: I have discussed with the patient and/or surrogate, the non-emergent placement of a central venous catheter, including its clinical necessity/indication and associated potential risks and complications. The patient and/or surrogate understand(s) and acknowledge(s) the need to proceed with central venous catheter insertion as an important element of the patient's clinical management. Time Out Performed: Yes Patient Position: supine Patient placed on monitor/pulse ox: Yes Central line prep: 2% Chlorhexidine scrub Local anesthesia used: lidocaine 1% Amount of anesthesia used (ml): 3 Sterile US Technique with sterile gel/sterile probe covers: Yes Central line lumen inserted: triple Arabic: 7 Length (cm): 20 Depth of Insertion (cm): 20 Post Procedure: sutured in place, good blood return, all ports aspirated, flushed, capped, transparent dressing, hemostatic product, antimicrobial product, securement product and aseptic technique maintained throughout procedure Post procedure x-ray: other (not applicable) Patient tolerated procedure: well Complications: none
--- NOTE | 2023-07-29 13:34 | WPDPROCEDUR ---
Procedures Intubation Intubation Date: 07/29/23 Intubation Time: 11:00 Consent: Consent was obtained from daughter, Meri, over the phone A pre-procedural Time-Out was completed immediately before starting the procedure and confirmed: Patient Identification, Site, Procedure, Patient Position and the Availability of Requisite Equipment: Yes Sedative: etomidate Paralytic: rocuronium Laryngoscope: fiber optic video scope Assist device used: fiber optic device ET tube size: 7.5 Tube secured depth (cm): 23 Tube secured location: lips Tube placement confirmation: visualized tube passing through cords, equal breath sounds bilaterally, no breath sounds over epigastrium and confirmation by capnometry Patient tolerated procedure: well Intubation complications: none
--- NOTE | 2023-07-29 15:55 | PM.DDS ---
Discharge Summary Probable Cause of Probable Cause of : Non ST-elevation [place] Pneumonia Pulmonary edema Summary Hospital Course: 83-year-old female presented with chest pain and shortness of breath. Was also hypoxic needing oxygen supplementation and ultimately BiPAP. She was still hypoxic and bradycardia was noted. Phone was elevated suggesting ST elevation [place]. chest x-ray with worsening opacities. Because of respiratory distress patient was intubated. Cardiology was consulted. For bradycardia she was started on dopamine drip. Family discussion was done which led to switch to comfort measures and patient was subsequently extubated and
== END 2023-07-29 13:27 | disposition expired ==
LOC: ANHED 00:53 → ANHIMU 05:07 → ANHICU 10:01
PROVIDERS: Internal Medicine; Internal Medicine Nephrology; Admitting Provider Internal Medicine; Emergency Provider Emergency Medicine; PCP Nurse Practitioner Family; Visit Provider Internal Medicine
DX: I21.4 Non-ST elevation (NSTEMI) myocardial infarction (principal); J18.9 Pneumonia, unspecified organism; N18.6 End stage renal disease; J96.01 Acute respiratory failure with hypoxia; J96.02 Acute respiratory failure with hypercapnia; I50.1 Left ventricular failure, unspecified; I13.2 Hypertensive heart and chronic kidney disease with heart failure and with stage 5 chronic kidney disease, or end stage renal disease; I50.32 Chronic diastolic (congestive) heart failure; R57.9 Shock, unspecified; E11.22 Type 2 diabetes mellitus with diabetic chronic kidney disease; I25.10 Atherosclerotic heart disease of native coronary artery without angina pectoris; I50.9 Heart failure, unspecified; Z99.2 Dependence on renal dialysis; E03.9 Hypothyroidism, unspecified; G47.33 Obstructive sleep apnea (adult) (pediatric); E55.9 Vitamin D deficiency, unspecified; Z96.653 Presence of artificial knee joint, bilateral; Z96.641 Presence of right artificial hip joint; Z98.49 Cataract extraction status, unspecified eye; Z96.1 Presence of intraocular lens; Z66 Do not resuscitate
CPT/HCPCS: 36415; 36600; 71045; 80053; 81001; 82375; 82805; 82948; 83050; 83605; 83690; 83735; 84100; 84145; 84478; 84484; 85025; 85610; 85730; 86706; 87040; 87340; 87637; 87641; 93005; 94002; 96365; 96366; 96367; 96375; 99285; A9270; C1751; G0378; J0461; J0692; J1265; J1610; J1644; J1940; J2060; J2250; J2270; J2704; J3010; J3370; J7030; P9047